=== PATIENT | male | born 1960 | race Caucasian/White ===

== ENCOUNTER 2024-10-14 12:21 | Inpatient (IN) | payer OTHER, SELFPAY ==
[2024-10-14] VITALS (11 sets, daily range): BP systolic 139–164; BP diastolic 71–123; PULSE 78–88; RESP 16–21; TEMP 36.1–36.9; O2SAT 95–99; BMI 34.1; BMI 34.9; BMI 33.8
--- NOTE | 2024-10-14 12:28 | ED.RN ---
This Rn notified Dr. Lainez of symptoms, placed chart 1st in line to be seen in DrAngely office
--- NOTE | 2024-10-14 12:46 | CT_ITS ---
PROCEDURE: STROKE BRAIN/HEAD WITHOUT CONT REASON FOR EXAM: Stroke. TECHNIQUE: CT of the head without contrast was performed. COMPARISON: None. FINDINGS: Mild global parenchymal atrophy. Mild chronic microvascular ischemia. No evidence of acute fracture or dislocation. No extra-axial blood or fluid collections. The paranasal sinuses are clear. The calvarial vault and skull base are intact. CT/STROKE Brain/Head without Cont IMPRESSION: No acute intracranial abnormality. One or more dose reduction techniques were used (e.g., Automated exposure contr ol, adjustment of the mA and/or kV according to patient size, use of iterative reconstruction technique). Reading Location: [id number]
--- NOTE | 2024-10-14 12:46 | EKG12_ITS ---
Test Reason : STROKE Blood Pressure : */* mmHG Vent. Rate : 77 BPM Atrial Rate : 77 BPM P-R Int : 228 ms QRS Dur : 104 ms QT Int : 408 ms P-R-T Axes : 20 -50 22 degrees QTcB Int : 461 ms Sinus rhythm with 1st degree A-V block Left anterior fascicular block Moderate voltage criteria for LVH, may be normal variant ( R in aVL , Ghassan product ) Abnormal ECG Confirmed by DAVID SANCHEZ, BEVERLEY ([id number]), assistant editor TAJ BONILLA ([id number]) on 10/15/2024 6:55:57 AM Referred By: Alexis Lainez Confirmed By: BEVERLEY HERNANDEZ MD
--- NOTE | 2024-10-14 12:49 | EDS_ITS ---
HPI History of Present Illness Chief Complaint: Neuro S/Sx Informant: patient and spouse/S.O. Narrative Narrative: Presents to the ED for evaluation right facial droop speech being off. He states he woke up 610 this morning felt normal even after brushing his teeth. 730 patient uses computer felt heavy on the right arm. He is right-hand dominant. He took a nap, woke up noted more facial drooping. Speech has been off. Is worsened therefore he came here. no stroke history. History of diabetes. IV contrast dye allergy causing hives. In addition reportedly had head injury 2 weeks ago. No headaches. Prior similar symptoms: No PFSH PFSH Home Medications ?Medication ?Instructions ?Recorded ?Last Taken ?Type aspirin 81 mg tablet,delayed 81 mg PO DAILY 10/14/24 0 10/13/24 History release atorvastatin 20 mg tablet 20 mg PO DAILY 10/14/2401/31 History fenofibrate nanocrystallized 145 145 mg PO DAILY 10/1410/13/24 History mg tablet losartan 100 mg tablet 100 mg PO DAILY 10/14/2401/01 History meloxicam 7.5 mg tablet 7.5 mg PO DAILY 10/14/2401/01 History metformin 1,000 mg tablet 1,000 mg PO BID 10/14/2401/31 History Allergy/AdvReac Type Severity Reaction Status Date / Time Iodinated Contrast Media Allergy Intermediate Hives Verified 10/14/24 12:25 (contrast dye - iodinated) Social History Smoking Status: Never smoker ROS ROS ED Constitutional Constitutional ED: Denies chills, fever(s) or sweats ENT ENT ED: Denies sore throat Cardiovascular Cardiovascular: Denies chest pain, leg edema, palpitations or racing heartbeat Respiratory/Chest Respiratory/Chest: Denies cough, dyspnea or dyspnea on exertion Gastrointestinal Gastrointestinal: Denies abdominal pain, diarrhea, nausea or vomiting Genitourinary Genitourinary ED: Denies dysuria, hematuria or urinary frequency Musculoskeletal Musculoskeletal: Denies back pain, extremity pain or neck pain Integumentary Denies rash or wounds Neurologic Neurologic: Reports paresthesias, weakness and other Details: Speech changes ; Denies headache(s) EXAM Physical Exam Const Vital Signs: 10/14/24 12:23 10/14/24 12:46 10/14/24 13:03 Temperature 97.5 F L Temperature Source Temporal Pulse Rate 88 83 Respiratory Rate 19 H 21 H Blood Pressure 160/80 H 164/86 H Blood Pressure Mean 106 112 Pulse Ox 97 96 Oxygen Delivery Method Room Air Room Air 10/14/24 13:11 10/14/24 13:30 10/14/24 14:00 Temperature Temperature Source Pulse Rate 84 82 83 Respiratory Rate 18 17 Blood Pressure 154/77 H 156/71 H 139/79 H Blood Pressure Mean 102 99 99 Pulse Ox 95 97 97 Oxygen Delivery Method Positive well nourished and well developed Constitutional Narrative: Right lip droop sparing the forehead General Appearance ED: well developed and NAD HEENT Reports moist mucous membranes normocephalic and atraumatic Eyes General Eye ED: Yes normal appearance of both eyes Neck full ROM Chest Wall Chest: Negative for tenderness Resp normal respiratory effort and normal air movement Effort and Inspection: symmetric chest movement; Negative for respiratory distress Cardio regular rate, regular rhythm and no murmurs Peripheral Pulses: pulses 2+ throughout GI normal to inspection, nondistended, normoactive bowel sounds and non-tender Palpation: Negative for guarding or rebound tenderness present Extremity normal to inspection General Extremety ED: Negative for edema or tenderness General Extremity: Negative for edema Neuro oriented x3 Neuro Narrative: NIH of 4 see below. Sensorium / Orientation: awake and alert Skin no rashes or lesions noted and no wounds NIHSS NIHSS Initial: 1a Level of Consciousness: 0 1b LOC Questions (Score 2 if aphasic/stupor): 0 1c LOC Commands (Only score 1st attempt): 0 2 Best Gaze (If aphasic, use reflexive mvmts.): 0 3 Visual: 0 4 Facial Palsy: 1 5 Motor Arm Right (UN = amputation/fusion): 1 5 Motor Arm Left: 0 6 Motor Leg Right: 0 6 Motor Leg Left: 0 7 Limb ataxia (Only + if out of proportion): 0 8 Sensory (Aphasia/stupor=0 or 1, coma=2): 1 9 Best Language: 0 10 Dysarthria (mute, coma=2, intubated=UN): 1 11 Extinction and Inattention (only scored if +): 0 Total Score: 4 MDM MDM MDM Narrative Medical decision making narrative: Interventions / MDM: Differential diagnosis: CVA, facial weakness, dysarthria, history of diabetes Diagnosis considered but do not suspect: Intracranial hemorrhage however CT negative. My EKG interpretation: Sinus rate of 77, no ST changes. Imaging independently reviewed and interpreted by myself: CT brain: Cerebral atr ophy no acute findings. External documents reviewed: N/A Test considered but not ordered:N/A ED course: Patient NIH of 4 on evaluation. Symptom onset more than 5 hours ago prior to arrival. He is not a TNK candidate. He does have an IV dye allergy causing hives. Stroke team was activated will obtain noncontrast CT. Will have teleneurology involvement to assist with care and further workup. 1300: Patient evaluated by telestroke. With his known IV dye allergy. They recommended admission for MRI and MRA. EKG sinus rhythm. Labs are stable. I discussed with hospitalist Dr. Ugarte for admission to PCU. Re-evaluation: stable Disposition discussed with patient/family/significant other: Patient and family Case discussed with consulting clinician: Telestroke This note was generated with [employer] dictation software. It may contain incorrect words, spelling, and punctuation that were not noted in checking the note before signing. Lab Data Attestation: I reviewed the patient's lab results. Labs: Laboratory Results - last 24 hr 10/14/24 10/14/24 12:59 13:06 WBC 8.7 RBC 4.79 Hgb 15.0 Hct 44.0 MCV 91.9 MCH 31.3 MCHC 34.1 RDW Std Deviation 40.9 RDW Coeff of Vu 12.2 Plt Count 293 MPV 10.2 Immature Gran % (Auto) 1.600 H Neut % (Auto) 61.9 Lymph % (Auto) 24.4 Pike % (Auto) 8.6 Eos % (Auto) 2.7 Baso % (Auto) 0.8 Absolute Neuts (auto) 5.4 Absolute Lymphs (auto) 2.13 Nucleated RBC % 0 PT 13.2 INR 1.0 APTT 23.9 L Sodium 138 Potassium 4.0 Chloride 103 Carbon Dioxide 27.0 Anion Gap 8 BUN 19 H Creatinine 0.82 Estim Creat Clear Calc 103.06 Est GFR (MDRD) Af Amer 121 Est GFR (MDRD) Non-Af 100 BUN/Creatinine Ratio 23.1 H Glucose 222 H Calcium 9.6 Troponin I High Sens 11 POC Glucose 220 H Radiography Diagnostic Testing: Clinical Impression(s) from Imaging Studies Brain CT 10/14/24 12:46 IMPRESSION: No acute intracranial abnormality. One or more dose reduction techniques were used (e.g., Automated exposure control, adjustment of the mA and/or kV according to patient size, use of iterative reconstruction technique). Reading Location: [id number] Chest X-Ray 10/14/24 13:30 IMPRESSION: No acute cardiopulmonary process. Reading [facility] Stroke Documentation Questions Stroke Team Activated: Yes Was Patient considered for Endovascular Intervention?: No-CTA not indicated (Unable secondary to IV dye allergy) IV Thrombolytic Administered: No (Outside the window) Discharge Plan Dx/Rx/DC Orders Clinical Impression: Acute CVA (cerebrovascular accident), Weakness on right side of face, Facial paresthesia, History of diabetes mellitus Disposition Disposition: Acute Care Hospital [facility] Discharge Date/Time: 10/14/24 14:48
[2024-10-14 13:12] LABS: Absolute Lymphocyte Count 2.13 X10^3/uL (0.83-4.51); Absolute Neutrophil Count 5.4 X10^3/uL (2.0-7.7); Basophil# 0.07 X10^3/uL; Basophil% 0.8 % (0-1); Eosinophil# 0.24 X10^3/uL; Eosinophils% 2.7 % (0-5); Lymphocyte # 2.13 X10^3/ul (0.83-4.51); Lymphocyte % 24.4 % (19-41); Mean Corp Hgb Conc 34.1 g/dL (32-36); Mean Corpuscular Hgb 31.3 pg (27.0-32.0); Mean Corpuscular Volume 91.9 fL (80-94); Mean Platelet Vol. 10.2 fl (6.2-12.0); Monocyte# 0.75 X10^3/uL; Monocyte% 8.6 % (0-10); NRBC Flagged by Analyzer 0 % (0-5); Neutrophil % 61.9 % (47-70); Platelet Count 293 K/mm3 (150-450); RBC Distribution Width CV 12.2 % (11.6-14.6); RBC Distribution Width SD 40.9 fl (35.1-43.9); Red Blood Count 4.79 M/mm3 (4.6-6.2); White Blood Count 8.7 K/mm3 (4.4-11.0)
[2024-10-14 13:21] LABS: Partial Thromboplast Time 23.9 Seconds (24.1-36.2)
[2024-10-14 13:24] LABS: Bedside Glucose 220 mg/dL (74-106)
[2024-10-14 13:26] LABS: Anion Gap 8 (5-15); BUN 19 mg/dL (7-18); BUN/Creat Ratio 23.1 RATIO (10-20); Calcium,Total 9.6 mg/dL (8.5-10.1); Chloride 103 mmol/L (98-107); Creatinine, Serum 0.82 mg/dL (0.70-1.30); EST Glomerular Filtration Rate 100 mL/min (>60); Est Glom Filt Rate - Afr Amer 121 mL/min (>60); Estimated Creatinine Clearance 103.06 ml/min; Glucose 222 mg/dL (74-106); Sodium Level 138 mmol/L (136-145); Troponin-I HS 11 pg/mL (3.0-78.0)
--- NOTE | 2024-10-14 13:30 | RAD_ITS ---
EXAM: XR Chest, 1 View CLINICAL INDICATION: TECHNIQUE: Frontal view of the chest. COMPARISON: No relevant prior studies available. FINDINGS: LUNGS AND PLEURAL SPACES: Unremarkable. No consolidation. No pneumothorax. HEART: Unremarkable. No cardiomegaly. MEDIASTINUM: Unremarkable. Normal mediastinal contour. BONES/JOINTS: Unremarkable. No acute fracture. RAD/Chest 1 View IMPRESSION: No acute cardiopulmonary process. Reading [facility]
--- NOTE | 2024-10-14 14:04 | CASEMGMT ---
SW received a call from Simran. Simran said she did order meals for patient last discharge and she will order them again at this discharge. Jaylene OGLESBY
--- NOTE | 2024-10-14 14:05 | HP.PCM.HOS_ITS ---
HPI - General General Date of Admission: 10/14/24 Date of Service: 10/14/24 Chief Complaint: speech changes R sided facial droop HPI Narrative LAWRENCE CRISTINA, is a 64-year-old male with history of diabetes on metformin, hyperlipidemia, high blood pressure who presented to [facility] ED 10/14/2024 with right facial droop and speech being off. He woke up at 610 this morning and felt normal but then 730 he felt heaviness in his right arm. Took a nap and woke up and had some right facial drooping and noticed his speech is abnormal so he came here. Reportedly had him treated 2 weeks ago, no headaches. In ED NIH was 4. Symptoms were more than 5 hours prior to arrival so he is not a TNK candidate, ED physician did speak with teleneurology who recommended MRI instead of CTA given dye allergy. CT with no acute process, hospitalist contacted for admission for stroke workup. Patient evaluated at bedside and reports he woke up around 6:00 and felt okay but then around 730 he was on his computer and he noticed that when he was moving the mouse with his right hand he was intermittently missing his target, then around 11:00 the right side of his face had noticeable droop and he had difficulty speaking, right arm also just felt off. Does report that 2 Sundays ago he slipped on ice and hit his head and maybe had loss of consciousness but no seizure activity and it was mechanical fall, was felt a little bit off since then but had not had any symptoms like this. Patient also denies any changes in his gait today or lower extremity symptoms, no changes in vision, no headache [facility] Medications ?Medication ?Instructions ?Recorded ?Last Taken ?Type aspirin 81 mg tablet,delayed 81 mg PO DAILY 10/14/24 0 10/13/24 History release atorvastatin 20 mg tablet 20 mg PO DAILY 10/14/2401/31 History fenofibrate nanocrystallized 145 145 mg PO DAILY 10/1410/13/24 History mg tablet losartan 100 mg tablet 100 mg PO DAILY 10/14/2401/01 History meloxicam 7.5 mg tablet 7.5 mg PO DAILY 10/14/2401/01 History metformin 1,000 mg tablet 1,000 mg PO BID 10/14/2401/31 History Allergy/AdvReac Type Severity Reaction Status Date / Time Iodinated Contrast Media Allergy Intermediate Hives Verified 10/14/24 12:25 (contrast dye - iodinated) Social History Smoking Status: Never smoker ROS ROS Narrative General: Denies fever/chills HENT: Denies headache EYES: Denies changes in vision Resp: No significant shortness of breath Cardiac: Denies chest pain GI: Denies abdominal pain, denies changes in bowel, denies nausea/vomiting : Denies changes in urination Extremity: Denies swelling MSK: Denies weakness Neuro: Denies any paresthesias Heme: Denies any bleeding or bruising Skin: Denies rashes Psychiatric: No complaints voiced Vital Signs Vital Signs Vital Signs: 10/14/24 12:23 10/14/24 12:46 10/14/24 13:03 Temperature 97.5 F L Temperature Source Temporal Pulse Rate 88 83 Respiratory Rate 19 H 21 H Blood Pressure 160/80 H 164/86 H Blood Pressure Mean 106 112 Pulse Ox 97 96 Oxygen Delivery Method Room Air Room Air 10/14/24 13:11 10/14/24 13:30 10/14/24 14:00 Temperature Temperature Source Pulse Rate 84 82 83 Respiratory Rate 18 17 Blood Pressure 154/77 H 156/71 H 139/79 H Blood Pressure Mean 102 99 99 Pulse Ox 95 97 97 Oxygen Delivery Method Weight Weight: 101 kg Body Mass Index (BMI) 34.9 Physical Exam Narrative General: Alert, oriented, no apparent distress HEENT: Atraumatic, does have right lower facial droop Eyes: Anicteric, normal conjunctiva, extraocular movements intact, pupils equal Neck: Supple Respiratory: Clear to auscultation bilaterally, normal respiratory effort Cardiovascular: Regular rate and rhythm GI: Soft, nontender, nondistended Extremities: No edema Musculoskeletal: Strength 5 out of 5 in right upper extremity, 5 out of 5 left upper extremity, 5 out of 5 right lower extremity, 5 out of 5 left lower extremity Neuro: Patient with slight right lower facial droop also some word finding difficulties and was able to complete [id number] with left hand without difficulty but did have some difficulty with his right hand, otherwise cranial nerves II through XII intact Skin: No rashes appreciated Psych: Cooperative Results Lab / Micro Data 10/14/24 12:59 10/14/24 12:59 Labs: Laboratory Results - last 24 hr 10/14/24 12:59: WBC 8.7, RBC 4.79, Hgb 15.0, Hct 44.0, MCV 91.9, MCH 31.3, MCHC 34.1, RDW Std Deviation 40.9, RDW Coeff of Vu 12.2, Plt Count 293, MPV 10.2, I mmature Gran % (Auto) 1.600 H, Neut % (Auto) 61.9, Lymph % (Auto) 24.4, Vance % (Auto) 8.6, Eos % (Auto) 2.7, Baso % (Auto) 0.8, Absolute Neuts (auto) 5.4, Absolute Lymphs (auto) 2.13, Nucleated RBC % 0, Sodium 138, Potassium 4.0, Chloride 103, Carbon Dioxide 27.0, Anion Gap 8, BUN 19 H, Creatinine 0.82, Estim Creat Clear Calc 103.06, Est GFR (MDRD) Af Amer 121, Est GFR (MDRD) Non-Af 100, BUN/Creatinine Ratio 23.1 H, Glucose 222 H, Calcium 9.6, Troponin I High Sens 11 10/14/24 13:06: POC Glucose 220 H Imaging Radiology Impression Brain CT 10/14/24 12:46 IMPRESSION: No acute intracranial abnormality. One or more dose reduction techniques were used (e.g., Automated exposure control, adjustment of the mA and/or kV according to patient size, use of iterative reconstruction technique). Reading Location: [id number] Assessment & Plan Assessment/Plan (1) Neurologic abnormality: PLAN: Plan # Right arm dysmetria, abnormal speech, right facial droop -Admit to tele -EKG normal sinus rhythm with first-degree block -CT head with no acute process -CTA not obtained in the ED due to dye allergy, teleneurology recommended MRA -MRI and MRA ordered -NIH q4hr -asa, statin -Echo w/ bubble study -PT/OT/Speech eval -Teleneuro consult ordered -Hold BP medications to allow for permissive hypertension for 24 hours unless SBP greater than 220 or DBP greater than 120 or until stroke is ruled out #Type 2 diabetes mellitus -Glucose checks and sliding scale insulin -Hold home metformin #Hypertension -Patient unsure what his home antihypertensive is at this time, however will hold his above to allow permissive hypertension # Hyperlipidemia -Patient reports he is on home statin, awaiting medicine reconciliation #DVT ppx: SCDs Mali Ugarte MD
[2024-10-14 14:16] LABS: Prothrombin Time (Protime)PT. 13.2 SECONDS (11.7-14.9)
--- NOTE | 2024-10-14 14:19 | MRI_ITS ---
PROCEDURE: BRAIN WITHOUT CONTRAST REASON FOR EXAM: Speech changes; right facial droop. TECHNIQUE: Multiplanar, multisequence MRI of the brain without intravenous gadolinium-based contrast. COMPARISON: Same day CT FINDINGS: Tiny left thalamic and left centrum semiovale foci of restricted diffusion compatible with acute infarctions. No evidence of acute hemorrhage. Mild global parenchymal atrophy. Mild chronic microvascular ischemia. MRI/Brain without Contrast IMPRESSION: Left thalamic and left centrum semiovale small acute infarctions. Dr. Syed was instructed to call for critical results. Reading Location: [id number]
--- NOTE | 2024-10-14 14:19 | ECHOCS_ITS ---
Version 2 Reason For Study: TIA/CVA Procedure This was a 2D Doppler, Color Flow transthoracic echocardiogram. The study was technically difficult. Contrast injection was performed. Exam performed portable in patient room. Left Ventricle Normal LV size. Left ventricular systolic function is normal. The left ventricular ejection fraction is 65 %. Stage 1 diastolic dysfunction. No regional wall motion abnormalities noted. Right Ventricle Normal right ventricle. Normal systolic function. Atria Normal left atrium. Normal right atrium. Bubble contrast study is negative for PFO/ASD. Tricuspid Valve Normal tricuspid valve. Aortic Valve Trisinus/trileaflet aortic valve. Pulmonic Valve Normal pulmonic valve. Great Vessels Normal aortic root. The pulmonary artery is normal size. Inferior vena cava collapse with respiration. Pericardium/Pleural No pericardial effusion. Medication Diluted definity 1.5ml given slow IV push to enhance endocardial definition. Performed a rapid injection of agitated mix of 9 cc saline and 1cc air to assess for atrial septal defect. MMode/2D Measurements & Calculations LVIDd: 4.6 cm IVSd: 1.1 cm Ao root diam: 3.6 cm LVIDs: 3.2 cm LVPWd: 0.96 cm RVDd: 3.5 cm FS: 30.1 % _ LAV(MOD-bp): 43.9 ml LVAd ap4: 32.0 cm2 SV(MOD-sp4): 61.1 ml LAV(MOD-bp) Indexed: 20.8 ml/m2 LVLd ap4: 8.8 cm SI(MOD-sp4): 28.9 ml/m2 LAV(MOD-sp2): 43.3 ml EDV(MOD-sp4): 98.5 ml LAV(MOD-sp4): 40.8 ml EDV(sp4-el): 98.8 ml LVAs ap4: 18.7 cm2 LVLs ap4: 8.0 cm ESV(MOD-sp4): 37.4 ml ESV(sp4-el): 37.4 ml EF(MOD-sp4): 62.0 % EF(sp4-el): 62.2 % _ SV(sp4-el): 61.5 ml LA A4 area: 15.4 cm2 LA dimension(2D): 3.8 cm _ RA A4 area: 17.9 cm2 TAPSE: 2.3 cm Time Measurements MV dec time: 0.13 sec Doppler Measurements & Calculations MV E max gumaro: 57.1 cm/sec Lat Peak E' Gumaro: 11.9 cm/sec Med Peak E' Gumaro: 10.8 cm/sec MV A max gumaro: 93.0 cm/sec E/E' lat: 4.8 E/E' med: 5.3 MV E/A: 0.61 _ MV V2 max: 104.1 cm/sec Ao V2 max: 140.4 cm/sec MV max P.3 mmHg MV dec slope: 452.0 cm/sec2 Ao max P.9 mmHg MV V2 mean: 60.9 cm/sec Ao V2 mean: 89.7 cm/sec MV mean P.8 mmHg Ao mean P.9 mmHg MV V2 VTI: 17.3 cm Ao V2 VTI: 22.0 cm AV (velocity ratio): 0.75 _ LV V1 max: 90.5 cm/sec LV V1 max P.3 mmHg LV V1 mean P.7 mmHg LV V1 mean: 59.1 cm/sec LV V1 VTI: 16.4 cm ECHO/Echo Complete W/ Contrast Interpretation Summary Normal LV size. Left ventricular systolic function is normal. The left ventricular ejection fraction is 65 %. Bubble contrast study is negative for PFO/ASD. Stage 1 diastolic dysfunction. Contrast injection was performed. Ordering Physician: Mali Ugarte Referring Physician: Alexis Lainez Performed By: Thomas Puente RCS
--- NOTE | 2024-10-14 14:19 | MRI_ITS ---
PROCEDURE: MRA NECK WITH AND W/O CONTRAST REASON FOR EXAM: Stroke-like symptoms. TECHNIQUE: Neck MRA using 2D and 3D Time of Flight technique and with intravenous gadolinium-based contrast. CONTRAST: COMPARISON: None. FINDINGS: Flow: 2D Time of Flight images demonstrate antegrade carotid and vertebral artery flow. Carotids: Tortuous internal carotid arteries. Decreased signal within the proximal right internal carotid only seen on the axial images and therefore likely artifact. Decreased signal within the proximal internal carotid arteries suggestive of less than 50% stenosis Vertebrals: Codominant without evidence of high grade stenosis. Arch: No significant stenosis identified at the arch vessel origins, brachiocephalic or proximal subclavian arteries. MRI/MRA Neck WITH and W/O Contrast IMPRESSION: Decreased signal within the proximal right internal carotid artery favored to b e artifact. CTA could be used to confirm. No definite acute arterial abnormality within the neck. Tortuous internal carotid arteries. Reading Location: [id number]
--- NOTE | 2024-10-14 14:54 | MRI_ITS ---
PROCEDURE: MRA HEAD ONLY WITHOUT CONTRAST REASON FOR EXAM: Stroke-like symptoms. COMPARISON: None. TECHNIQUE: 3D Time of Flight MRA of the head without intravenous contrast. 3D reformatted images. FINDINGS: Anatomy: [place] of [place] anatomy is within normal limits. Anterior Circulation: Distal internal carotid anterior and middle cerebral arteries appear patent without high grade stenosis. No large aneurysms are identified. Posterior Circulation: Distal vertebral arteries the basilar artery and the posterior cerebral arteries appear patent without high grade stenosis. No large aneurysms are identified. MRI/MRA Head ONLY without Contrast IMPRESSION: No acute arterial abnormality. Reading Location: [id number]
--- NOTE | 2024-10-14 15:29 | CM.ED ---
Social Work Reason for visit: Stroke alert Patient was in bed with and daughter at bedside. stated she was fine at this time. Emotional support provided. No further needs identified at this time. Jane Roberts, [place] MARKETING DIRECTOR, HEALTH PROGRAM MANAGER
[2024-10-14] MEDS: Aspirin 325 MG Tablet PO (18:37)
[2024-10-14] MEDS: Insulin Lispro 100 UNIT/ML INSULN.PEN SC ×2 (18:38→21:27)
[2024-10-14 18:43] LABS: Bedside Glucose 189 mg/dL (74-106)
--- NOTE | 2024-10-14 22:00 | NURSING ---
Dr Syed notified of NIH results and to call radiology re mri reports
--- NOTE | 2024-10-14 22:00 | NURSING ---
Assessed NIH with nicci at 2150. scored pt at a 4. Nicci had wanted a second assessment d/t unsure about previous score. Pt states speech is worse. Has mild drift to rt arm. Informed Dr blevins of inconsistency with nih's, score of 6 and now 4 and that radiology wishes for her to call re mri report.
[2024-10-14] MEDS: Ondansetron 4 MG/2 ML Vial IV (22:03)
[2024-10-14] MEDS: 0.9% Saline Lock 10 ML Syringe IV (22:03)
--- NOTE | 2024-10-14 22:44 | PCM.HOSP.N ---
Hospitalist Note Discussed image findings with radiology. MRI of the brain with left thalamic and left centrum semiovale small acute infarctions. MRA of the head with no acute arterial abnormality. MRA of the neck with decreased signal within the proximal right internal carotid artery favored to be artifact with no definitive acute arterial abnormality within the neck with tortuous internal carotid arteries.
[2024-10-14 23:15] LABS: Bedside Glucose 206 mg/dL (74-106)
[2024-10-15] VITALS (8 sets, daily range): BP systolic 132–156; BP diastolic 82–89; PULSE 81–94; RESP 16–18; TEMP 35.8–36.9; O2SAT 95–100; BMI 33.8
[2024-10-15] MEDS: MELATONIN 3 MG TABLET PO ×2 (01:25→22:57)
[2024-10-15] MEDS: Insulin Lispro 100 UNIT/ML INSULN.PEN SC ×4 (07:01→22:54)
[2024-10-15 07:20] LABS: Bedside Glucose 294 mg/dL (74-106)
[2024-10-15 07:45] LABS: Absolute Lymphocyte Count 2.57 X10^3/uL (0.83-4.51); Absolute Neutrophil Count 7.6 X10^3/uL (2.0-7.7); Basophil# 0.04 X10^3/uL; Basophil% 0.4 % (0-1); Eosinophil# 0.14 X10^3/uL; Eosinophils% 1.2 % (0-5); Hematocrit 46.1 % (40-54); Hemoglobin 15.8 g/dL (13.0-16.5); Lymphocyte # 2.57 X10^3/ul (0.83-4.51); Lymphocyte % 22.9 % (19-41); Mean Corp Hgb Conc 34.3 g/dL (32-36); Mean Corpuscular Hgb 30.9 pg (27.0-32.0); Mean Corpuscular Volume 90.2 fL (80-94); Mean Platelet Vol. 10.2 fl (6.2-12.0); Monocyte# 0.72 X10^3/uL; Monocyte% 6.4 % (0-10); NRBC Flagged by Analyzer 0 % (0-5); Neutrophil # 7.62 X10^3/uL (2.7-7.7); Neutrophil % 67.9 % (47-70); Platelet Count 355 K/mm3 (150-450); RBC Distribution Width CV 12.1 % (11.6-14.6); RBC Distribution Width SD 39.7 fl (35.1-43.9); Red Blood Count 5.11 M/mm3 (4.6-6.2); White Blood Count 11.2 K/mm3 (4.4-11.0)
[2024-10-15 08:16] LABS: Anion Gap 10 (5-15); BUN 15 mg/dL (7-18); BUN/Creat Ratio 17.5 RATIO (10-20); Calcium,Total 9.5 mg/dL (8.5-10.1); Chloride 102 mmol/L (98-107); Cholesterol 152 mg/dL (200); Creatinine, Serum 0.86 mg/dL (0.70-1.30); EST Glomerular Filtration Rate 95 mL/min (>60); Est Glom Filt Rate - Afr Amer 115 mL/min (>60); Estimated Creatinine Clearance 96.78 ml/min; Glucose 274 mg/dL (74-106); High Density Lipoprotein 36 mg/dL; Potassium 3.9 mmol/L (3.5-5.1); Sodium Level 135 mmol/L (136-145); Triglycerides 451 mg/dL
--- NOTE | 2024-10-15 08:19 | CT_ITS ---
EXAM: CT Head Without Intravenous Contrast CLINICAL INDICATION: TECHNIQUE: Axial computed tomography images of the head/brain without intravenous contrast. This CT exam was performed using one or more of the following dose reduction techniques: automated exposure control, adjustment of the mA and/or kV according to patient size, and/or use of iterative reconstruction technique. COMPARISON: No relevant prior studies available. FINDINGS: BRAIN AND EXTRA-AXIAL SPACES: No acute intracranial hemorrhage, midline shift or mass effect. If symptoms persist, further evaluation with MRI is recommended. No significant white matter disease. BONES/JOINTS: Unremarkable. No acute fracture. SOFT TISSUES: Unremarkable. SINUSES: Unremarkable as visualized. No acute sinusitis. MASTOID AIR CELLS: Unremarkable as visualized. No mastoid effusion. CT/STROKE Brain/Head without Cont IMPRESSION: No acute intracranial hemorrhage, midline shift or mass effect. If symptoms per sist, further evaluation with MRI is recommended. Reading Location[facility]
--- NOTE | 2024-10-15 08:45 | PCM.HOSP.N ---
Hospitalist Note Notified by nursing staff that patient's NIH score had worsened from 4 to 8 and he was reporting worsening right upper extremity weakness. Saw patient at bedside. Patient does have significantly weak right arm. Minimal movement noted in the right hand when I asked him to squeeze my hand, and minimal movement at the shoulder noted with shrugging his shoulders. He reported having some sensation in the right arm but it was diminished from the left. Has continued right facial droop noted. No right leg weakness. Given these findings, stroke alert was called. CT head was stable from previous, no new findings. Discussed with teleneurology and he believes patient is completing his stroke that started yesterday. Okay to start patient on dual antiplatelet therapy; will start Plavix 75 mg daily this morning. No need to load with Plavix 300 mg. Stroke is most likely due to microvascular ischemia but we will follow-up echo that patient will have done today. PT/OT/speech therapy to see the patient today.
[2024-10-15] MEDS: Clopidogrel Bisulfate 75 MG Tablet PO (09:54)
[2024-10-15] MEDS: Fenofibrate 145 MG Tablet PO (09:54)
[2024-10-15] MEDS: Aspirin 81 MG TAB.CHEW PO (09:54)
[2024-10-15 10:16] LABS: Bedside Glucose 299 mg/dL (74-106)
--- NOTE | 2024-10-15 11:33 | CASEMGMT ---
Social Work SW completed PHQ-9 d/t dx of stroke. Pt scored 7/27 all related to post stroke symptoms. However, pt is motivated, optimistic and forward thinking. Pt denied any counseling resources at this time. SW educated and provided brochure on [facility]. SW reviewed/updated demographics. Pt reports he has two houses - one in [place], one in [place]. Pt plans to sell house in [place] in December. 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 Pt expressed uncertainty to what his insurance coverages regarding RU, but is interested in rehab for stroke. SW will collaborate with IDT to provide recommendations for DC needs. SW will remain available for discharge planning needs. Amisha Heath CURTAIN [employer]ER VENDING MACHINE COLLECTOR
--- NOTE | 2024-10-15 12:41 | PN.HOSP_ITS ---
Reason for Visit Reason for Visit: Diagnoses Other symptoms and signs involving the nervous system (10/15/24) Subjective Subjective Patient had worsening right upper extremity weakness this morning leading to a stroke alert being called. See quick note from this morning for further details. In short, CT head was negative and neurology believed patient was completing a stroke from yesterday. Saw patient at bedside later this morning. Patient appeared similar to earlier in the morning. Good cognitive function but does have some speech difficulty from the stroke. No new concerns at this time. Objective Data Objective Data Vital Signs: Vital Signs Temp Pulse Resp BP Pulse Ox O2 Del Method 97.5 F L 92 18 148/83 H 98 Room Air 10/15/24 10:00 10/15/24 10:00 10/15/24 10:00 10/15/24 10:00 10/15/24 10:00 10/15/24 10:00 Oxygen Delivery Method Room Air Weight: 97.976 kg Body Mass Index (BMI) 33.8 Intake & Output: Intake and Output for Last 24 Hours 10/13/24 10/14/24 10/15/24 23:59 23:59 23:59 Intake Total 500 / 500 Balance 500 / 500 Lab / Micro Data 10/15/24 07:01 10/15/24 07:01 Labs: Laboratory Results - last 24 hr 10/14/24 12:59: WBC 8.7, RBC 4.79, Hgb 15.0, Hct 44.0, MCV 91.9, MCH 31.3, MCHC 34.1, RDW Std Deviation 40.9, RDW Coeff of Vu 12.2, Plt Count 293, MPV 10.2, I mmature Gran % (Auto) 1.600 H, Neut % (Auto) 61.9, Lymph % (Auto) 24.4, Jefferson % (Auto) 8.6, Eos % (Auto) 2.7, Baso % (Auto) 0.8, Absolute Neuts (auto) 5.4, Absolute Lymphs (auto) 2.13, Nucleated RBC % 0, PT 13.2, INR 1.0, APTT 23.9 L, Sodium 138, Potassium 4.0, Chloride 103, Carbon Dioxide 27.0, Anion Gap 8, BUN 19 H, Creatinine 0.82, Estim Creat Clear Calc 103.06, Est GFR (MDRD) Af Amer 121, Est GFR (MDRD) Non-Af 100, BUN/Creatinine Ratio 23.1 H, Glucose 222 H, Calcium 9.6, Troponin I High Sens 11 10/14/24 13:06: POC Glucose 220 H 10/14/24 17:39: POC Glucose 189 H 10/14/24 21:25: POC Glucose 206 H 10/15/24 07:00: POC Glucose 294 H 10/15/24 07:01: WBC 11.2 H, RBC 5.11, Hgb 15.8, Hct 46.1, MCV 90.2, MCH 30.9, MCHC 34.3, RDW Std Deviation 39.7, RDW Coeff of Vu 12.1, Plt Count 355, MPV 10.2, Immature Gran % (Auto) 1.200 H, Neut % (Auto) 67.9, Lymph % (Auto) 22.9, Jefferson % (Auto) 6.4, Eos % (Auto) 1.2, Baso % (Auto) 0.4, Absolute Neuts (auto) 7.6, Absolute Lymphs (auto) 2.57, Nucleated RBC % 0, Sodium 135 L, Potassium 3.9, Chloride 102, Carbon Dioxide 23.0, Anion Gap 10, BUN 15, Creatinine 0.86, Estim Creat Clear Calc 96.78, Est GFR (MDRD) Af Amer 115, Est GFR (MDRD) Non-Af 95, BUN/Creatinine Ratio 17.5, Glucose 274 H, Calcium 9.5, Triglycerides 451 H, Cholesterol 152, LDL Cholesterol TNP, VLDL Cholesterol TNP, HDL Cholesterol 36 L 10/15/24 08:15: POC Glucose 299 H Radiography Diagnostic Testing: Radiology Impression Brain CT 10/14/24 12:46 IMPRESSION: No acute intracranial abnormality. One or more dose reduction techniques were used (e.g., Automated exposure control, adjustment of the mA and/or kV according to patient size, use of iterative reconstruction technique). Reading Location: [id number] Chest X-Ray 10/14/24 13:30 IMPRESSION: No acute cardiopulmonary process. Reading [facility] Brain MRI 10/14/24 14:19 IMPRESSION: Left thalamic and left centrum semiovale small acute infarctions. Dr. Syed was instructed to call for critical results. Reading Location: [facility] Echocardiogram 10/14/24 14:19 Interpretation Summary Normal LV size. Left ventricular systolic function is normal. The left ventricular ejection fraction is 65 %. Bubble contrast study is negative for PFO/ASD. Stage 1 diastolic dysfunction. Contrast injection was performed. Ordering Physician: Mali Ugarte Referring Physician: Alexis Lainez Performed By: Thomas Puente RCS Neck MRA 10/14/24 14:19 IMPRESSION: Decreased signal within the proximal right internal carotid artery favored to be artifact. CTA could be used to confirm. No definite acute arterial abnormality within the neck. Tortuous internal carotid arteries. Reading Location: [facility] Head MRA 10/14/24 14:54 IMPRESSION: No acute arterial abnormality. Reading Location: [facility] Brain CT 10/15/24 08:19 IMPRESSION: No acute intracranial hemorrhage, midline shift or mass effect. If symptoms persist, further evaluation with MRI is recommended. Reading Location: [facility] Physical Exam Const alert, oriented x3 and no apparent distress Constitutional Narrative: Upper middle-aged male, class I obesity, mildly anxious appearing but otherwise sitting up comfortably in bed, answering questions appropriately but does have some speech difficulties noted. General Appearance: cooperative and comfortable HEENT normocephalic, head/scalp atraumatic, hearing grossly normal bilaterally, nasal mucous membranes and turbinates normal and moist oral mucous membranes HEENT Narrative: Right mild facial droop noted. Eyes PERRL, EOMs intact bilaterally and conjunctivae normal Neck full ROM Chest inspection of chest normal Resp normal respiratory effort, normal air movement, no use of accessory muscles and clear to auscultation bilaterally Cardio regular rate, regular rhythm, no murmurs and peripheral pulses 2+ throughout GI normal to inspection, nondistended, normoactive bowel sounds, soft to palpation, non-tender and non-distended Back/Spine normal ROM Extremity normal to inspection and no pedal edema Skin no rashes or lesions noted Neuro Neuro Narrative: +1/5 strength in right upper extremity with intact but decreased sensation noted. Mild right facial droop noted but sensation intact. No right lower extremity weakness noted. Speech difficulty noted. Psych mental status grossly normal Mood & Affect: anxious Assessment & Plan Assessment/Plan (1) Acute CVA (cerebrovascular accident): PLAN: Plan Patient is a 64-year-old male who presented [facility] ED on 10/14/2024 with strokelike symptoms. 1. Acute CVA ? Neurology following. Presented with right arm dysmetria, right facial droop and abnormal speech. MRI brain showed left thalamic and left centrum semiovale small acute infarctions. Per neurology, patient's symptoms are consistent with infarcts in these areas. Had slight worsening on morning 10/15, repeat CT head unremarkable and neurology suspected patient was completing stroke. Lipid profile showed total cholesterol 152, HDL 36, triglycerides 151, LDL not calculated. A1c 5.8%. Echo showed EF 65%, no PFO/ASD. Per neurology, treat with aspirin and Plavix for 21 days then aspirin only and intensity statin. PT/OT/case management consulted. Planning for acute rehab on discharge. Will likely be medically for discharge tomorrow. 2. Type 2 diabetes mellitus ? A1c 5.8% on admit as noted above. However, blood sugars have been consistently in the 200s since admission. Will continue sliding scale insulin with meals with high medium sliding scale, adjust as needed. 3. Hypertension ? Holding home losartan for permissive hypertension, will plan to restart on discharge. 4. Hyperlipidemia ? Continue high intensity statin as noted above. Continue home fenofibrate as well. 5. Class I obesity ? BMI 33 on admit. Encouraged lifestyle modifications. DVT prophylaxis: SCDs CODE STATUS: Full code, verified Expected disposition: Likely acute rehab, 1 to 2 days Total clinical time spent by myself addressing the patient's medical issues, reviewing all the data, and collaborating with patient's care team: 50 minutes. Charges/Coding Visit Charges Inpatient E&M: 81291 Subs Hosp L3
--- NOTE | 2024-10-15 14:46 | CASEMGMT ---
Social Work SW met with pt, pt's sister Anabelle and niece Cleo and discussed discharge plan. Pt was independent and still working prior to stroke. Pt is very motivated to recover and is requesting rehabilitation. SW explained Inpatient Rehab and SNF level of care. Pt agreeable to acute RU. A list of IRU providers including quality and resource use data and consistent with the patient?s preferred geographic region, medical needs, and insurance network were provided from the [employer] Guide. Pt preferred provider is [facility]. Referral made to Lory in [facility]. SW will await determination of acceptance. MARGARITA Moreno
[2024-10-15 16:42] LABS: Hemoglobin A1c 5.8 % (3.8-5.6)
[2024-10-15 17:23] LABS: Bedside Glucose 343 mg/dL (74-106)
[2024-10-15 17:24] LABS: Bedside Glucose 194 mg/dL (74-106)
--- NOTE | 2024-10-15 18:00 | NEURO.CONS ---
Assessment and Plan: Neuro Assessment/Plan LAWRENCE CRISTINA is a 64 M with a past medical history of DM and HLD presented with right side weakness and dysarthra, MRI showed acute left thalamic and Semiovale stroke etiology likely due small vessel disease Plan: cont with DAPT ( ASA and Plavix for 21 days then cont with ASA onley) high intesity statin TTE vascular risk modification PT/OT HPI Consult Data Date of Consult: 10/15/24 HPI Narrative HPI Narrative: LAWRENCE CRISTINA, is a 64-year-old male with history of diabetes , hyperlipidemia, high blood pressure who presented to with right facial droop and slurred speech. his symptoms worsen this morning, repeat CT head showed no acute changes, on vitals review there is no major swing in his blood pressure related to the exam change. [facility] Home Medications ?Medication ?Instructions ?Recorded ?Last Taken ?Type aspirin 81 mg tablet,delayed 81 mg PO DAILY 10/14/24 10/13/24 History release atorvastatin 20 mg tablet 20 mg PO DAILY 10/14/24 10/14/24 History fenofibrate nanocrystallized 145 145 mg PO DAILY 10/14/24 10/13/24 History mg tablet losartan 100 mg tablet 100 mg PO DAILY 10/14/24 10/13/24 History meloxicam 7.5 mg tablet 7.5 mg PO DAILY 10/14/24 10/13/24 History metformin 1,000 mg tablet 1,000 mg PO BID 10/14/24 10/14/24 History turmeric 400 mg capsule 1,650 mg PO 10/14/24 Unknown History Allergy/AdvReac Type Severity Reaction Status Date / Time Iodinated Contrast Media Allergy Intermediate Hives Verified 10/14/24 12:25 (contrast dye - iodinated) Social History Smoking Status: Never smoker Vital Signs Vital Signs Vital Signs: 10/14/24 21:15 10/14/24 21:50 10/14/24 22:00 Temperature 96.9 F L 98.4 F Temperature Source Temporal Oral Pulse Rate 79 78 Pulse Strength Normal (2+) Respiratory Rate 16 16 Respiratory Effort Respiratory Depth Respiratory Pattern Blood Pressure 158/85 H 154/123 H Blood Pressure Mean 109 133 Blood Pressure Source Monitor Monitor Blood Pressure Position Semi-Fowlers Supine Blood Pressure Location Right Arm Right Arm Pulse Ox 97 97 Oxygen Delivery Method Room Air Room Air 10/14/24 22:00 10/15/24 00:15 10/15/24 00:15 Temperature 96.9 F L Temperature Source Temporal Pulse Rate 81 Pulse Strength Respiratory Rate 16 Respiratory Effort Normal Non-Labored Respiratory Depth Normal Respiratory Pattern Normal Blood Pressure 156/82 H Blood Pressure Mean 106 Blood Pressure Source Monitor Blood Pressure Position Sitting Blood Pressure Location Right Arm Pulse Ox 96 98 Oxygen Delivery Method Room Air Room Air Room Air 10/15/24 04:15 10/15/24 07:30 10/15/24 08:15 Temperature 96.5 F L 97.5 F L Temperature Source Temporal Oral Pulse Rate 84 92 Pulse Strength Respiratory Rate 18 18 Respiratory Effort Respiratory Depth Respiratory Pattern Blood Pressure 147/86 H 148/83 H Blood Pressure Mean 106 104 Blood Pressure Source Monitor Blood Pressure Position Semi-Fowlers Blood Pressure Location Right Arm Pulse Ox 95 97 98 Oxygen Delivery Method Room Air Room Air Room Air 10/15/24 10:00 10/15/24 10:00 10/15/24 12:15 Temperature 97.5 F L 97.8 F Temperature Source Oral Oral Pulse Rate 92 94 Pulse Strength Normal (2+) Respiratory Rate 18 16 Respiratory Effort Respiratory Depth Respiratory Pattern Blood Pressure 148/83 H 132/87 H Blood Pressure Mean 104 102 Blood Pressure Source Monitor Monitor Blood Pressure Position Sitting Sitting Blood Pressure Location Left Arm Left Arm Pulse Ox 98 100 Oxygen Delivery Method Room Air Room Air 10/15/24 16:15 Temperature 98.4 F Temperature Source Oral Pulse Rate 83 Pulse Strength Respiratory Rate 16 Respiratory Effort Respiratory Depth Respiratory Pattern Blood Pressure 152/84 H Blood Pressure Mean 106 Blood Pressure Source Monitor Blood Pressure Position Sitting Blood Pressure Location Left Arm Pulse Ox 100 Oxygen Delivery Method Room Air Weight Weight: 97.976 kg Body Mass Index (BMI) 33.8 EEG Results Procedure Details EEG Procedure Details: LAWRENCE CRISTINA is a 64 year old M with a past medical history of , who presents for evaluation of Electroencephalogram on DATE at TIME NIHSS NIHSS Nursing Documentation NIHSS Nursing Documentation: NIHSS: Ischemic Stroke/TIA Start: 10/14/24 15:18 Text: For PCU Patients: NIH and Neuro Check every 4 Status: Active hours, PRN and with change in RN caregiver. Freq: 1613 Protocol: Activity Type Activity Date Activity User E-sign Co-sign Detail Recorded Client Recorded Date Recorded By Document 10/15/24 16:15 [id number] 10/15/24 17:10 NB 10/15/24 16:15 NIH Stroke Scale [NIHSS] A score of 0 is normal or asymptomatic . Total possible score is 42. Inpatient: RN or Physician to activate a stroke alert for onset of new stroke symptoms or with NIHSS increase >/= 3 points. Following change in neurological status, NIHSS will be performed per physician order or more frequently PRN. -1a. Level of Consciousness Alert; keenly responsive -1b. LOC Questions Answers BOTH questions correctly. -1c. LOC Commands Performs both tasks correctly . -2. Best Gaze Normal -3. Visual No visual loss -4. Facial Palsy Minor paralysis (flattened nasolabial fold , asymmetry on smiling) -5a. Left Arm No drift; arm holds 90 (or 45 ) degrees for full 10 seconds -5b. Right Arm No movement -6a. Left Leg No drift; leg holds 30-degree position for full 5 seconds -6b. Right Leg Some effort against gravity ; -7. Limb Ataxia Present in 2 limbs -8. Sensory Mild-to- moderate sensory loss; -9. Best Language Mild-to- moderate aphasia; -10. Dysarthria Mild-to- moderate dysarthria; -11. Extinction and Inattention No abnormality -Total 12 Query Text:A score of 0 is normal or asymptomatic. Total possible score is 42 . ED: Notify Physician for NIHSS increase by > / = 3 points. Inpatient: RN or Physician to activate a stroke alert for NIHSS increase of > / = 3 points. Coma Scale [Assess] -Eye Opening Spontaneous -Motor Obeys Commands -Verbal Oriented [Total] -Coma Scale Total 15 Physical Exam Neuro Neuro Narrative: awake alert oriented x3 language intact dense right facial droop right arm plegic right leg drift decreas sensation in the right Lab / Micro Data 10/15/24 07:01 10/15/24 07:01 Labs: Laboratory Results - last 24 hr 10/14/24 17:39: POC Glucose 189 H 10/14/24 21:25: POC Glucose 206 H 10/15/24 07:00: POC Glucose 294 H 10/15/24 07:01: WBC 11.2 H, RBC 5.11, Hgb 15.8, Hct 46.1, MCV 90.2, MCH 30.9, MCHC 34.3, RDW Std Deviation 39.7, RDW Coeff of Vu 12.1, Plt Count 355, MPV 10.2, Immature Gran % (Auto) 1.200 H, Neut % (Auto) 67.9, Lymph % (Auto) 22.9, [place] % (Auto) 6.4, Eos % (Auto) 1.2, Baso % (Auto) 0.4, Absolute Neuts (auto) 7.6, Absolute Lymphs (auto) 2.57, Nucleated RBC % 0, Sodium 135 L, Potassium 3.9, Chloride 102, Carbon Dioxide 23.0, Anion Gap 10, BUN 15, Creatinine 0.86, Estim Creat Clear Calc 96.78, Est GFR (MDRD) Af Amer 115, Est GFR (MDRD) Non-Af 95, BUN/Creatinine Ratio 17.5, Glucose 274 H, Hemoglobin A1c 5.8 H, Calcium 9.5, Triglycerides 451 H, Cholesterol 152, LDL Cholesterol TNP, VLDL Cholesterol TNP, HDL Cholesterol 36 L 10/15/24 08:15: POC Glucose 299 H 10/15/24 12:11: POC Glucose 343 H 10/15/24 17:07: POC Glucose 194 H Imaging Radiology Impression Brain MRI 10/14/24 14:19 IMPRESSION: Left thalamic and left centrum semiovale small acute infarctions. Dr. Syed was instructed to call for critical results. Reading Location: [id number] Echocardiogram 10/14/24 14:19 Interpretation Summary Normal LV size. Left ventricular systolic function is normal. The left ventricular ejection fraction is 65 %. Bubble contrast study is negative for PFO/ASD. Stage 1 diastolic dysfunction. Contrast injection was performed. Ordering Physician: Mali Ugarte Referring Physician: Alexis Lainez Performed By: Thomas Puente RCS Neck MRA 10/14/24 14:19 IMPRESSION: Decreased signal within the proximal right internal carotid artery favored to be artifact. CTA could be used to confirm. No definite acute arterial abnormality within the neck. Tortuous internal carotid arteries. Reading Location: [facility] Head MRA 10/14/24 14:54 IMPRESSION: No acute arterial abnormality. Reading Location: [facility] Brain CT 10/15/24 08:19 IMPRESSION: No acute intracranial hemorrhage, midline shift or mass effect. If symptoms persist, further evaluation with MRI is recommended. Reading Location: [facility] Active Medications Active Medications Active Medications: Current Medications Generic Name Dose Route Start Last Admin Trade Name Freq PRN Reason Stop Dose Admin Acetaminophen 650 mg 10/14/24 15:18 Acetaminophen 325 Mg Tablet PO Q6H PRN PRN Pain 1-10 Or Fever >100.7 Albuterol Sulfate 2.5 mg 10/14/24 15:18 Albuterol 2.5 Mg/3 Ml Vial.Neb. INHALATION Q2H PRN PRN SOB &/OR WHEEZING Aspirin 81 mg 10/15/24 08:00 10/15/24 09:54 Aspirin 81 Mg Tab.Chew PO 81 mg BREAKFAST HARDY Administration Atorvastatin Calcium 80 mg 10/15/24 22:00 Atorvastatin Calcium 80 Mg Tablet PO QHS HARDY Clopidogrel Bisulfate 75 mg 10/15/24 09:30 10/15/24 09:54 Clopidogrel Bisulfate 75 Mg Tablet PO 75 mg DAILY HARDY Administration Fenofibrate 145 mg 10/15/24 10:00 10/15/24 09:54 Fenofibrate 145 Mg Tablet PO 145 mg DAILY HARDY Administration Glucagon 1 mg 10/14/24 15:18 Glucagon 1 Mg/Ml Syringe IM X1 PRN HYPOGLYCEMIA Protocol Dextrose 250 mls @ 0 mls/hr 10/14/24 15:18 Dextrose 10%-Water IV .Q0M PRN HYPOGLYCEMIA Protocol As Directed Insulin Human Lispro 0 unit 10/14/24 16:00 10/15/24 17:21 Insulin Lispro 100 Unit/Ml Insuln.Pen SC 2 unit ACHS HARDY Administration Protocol Melatonin 3 mg 10/14/24 15:18 10/15/24 01:25 Melatonin 3 Mg Tablet PO 3 mg QHS PRN PRN Administration INSOMNIA Ondansetron HCl 4 mg 10/14/24 15:18 10/14/24 22:03 Ondansetron 4 Mg/2 Ml Vial IV 4 mg Q8H PRN PRN Administration NAUSEA/VOMITING Senna/Docusate Sodium 2 tablet 10/14/24 15:18 Senna/Docusate Sodium 1 Tablet PO BID PRN PRN Constipation Sodium Chloride 10 - 40 ml 10/14/24 17:47 10/14/24 22:03 0.9% Saline Lock 10 Ml Syringe IV 10 ml UD PRN Administration SALINE FLUSH
[2024-10-15] MEDS: Atorvastatin Calcium 80 MG Tablet PO (22:57)
[2024-10-15 23:29] LABS: Bedside Glucose 274 mg/dL (74-106)
[2024-10-16 02:00] VITALS: BP 141/87; PULSE 82; RESP 16; TEMP 36.8; O2SAT 96
[2024-10-16 03:00] VITALS: BMI 33.8
[2024-10-16 06:00] VITALS: BP 148/79; PULSE 82; RESP 18; TEMP 36; O2SAT 93
[2024-10-16] MEDS: Insulin Lispro 100 UNIT/ML INSULN.PEN SC ×2 (06:27→11:45)
[2024-10-16 06:50] LABS: Bedside Glucose 279 mg/dL (74-106)
[2024-10-16 07:35] VITALS: O2SAT 96
[2024-10-16 08:29] VITALS: BP 143/74; PULSE 79; TEMP 36.6; O2SAT 92
[2024-10-16] MEDS: Fenofibrate 145 MG Tablet PO (08:31)
[2024-10-16] MEDS: Aspirin 81 MG TAB.CHEW PO (08:32)
[2024-10-16] MEDS: Clopidogrel Bisulfate 75 MG Tablet PO (08:32)
[2024-10-16 08:40] VITALS: O2SAT 98
--- NOTE | 2024-10-16 10:20 | CASEMGMT ---
[employer] Insurance has approved stay in Inpatient Rehab and pt can admit today. Physician updated and pt is ready for discharge today. Lory in [facility] notified that pt will discharge today. SW met with pt and informed and pt is agreeable to dc plan. With pt permission, phone call to pt sister Anabelle and notified of discharge to [facility] today. MARGARITA Moreno
--- NOTE | 2024-10-16 11:27 | DCINST_ITS ---
Discharge Instructions Diet Discharge Diet: No restrictions DC O2, CPAP, BIPAP needs Home O2 Discharge instructions: No Dressing / Incision Discharge Activity: No Restrictions Follow Up Care Test Results: Test results from this visit will be discussed in further detail at your follow- up appointment, if applicable. Discharge Plan Admission Admit Date/Time: 10/15/24 12:20 Primary Reason for Your Visit: strokelike symptoms Attending Provider: Viet Boyce Primary Care Provider: AYLA RAMIREZ Consulting Providers: Rex Mccollum; Adriano Anne; Sarah Maldonado; Teressa Pagan; Luisa Rob; Ruddy Albert; Almaz Marroquin; Horace Del Cid; Elliot Tan; Jatin Smith; Lalitha Perdue; Yo Ibarra; Pamella Baptiste; German Malik; Brayan Howell; Dawson Noble; Severino Cochran; Nba Mcgarry; Florence Melchor; Belen Ruth; Mali Ugarte Discharge Orders/Prescriptions Prescriptions: New clopidogrel 75 mg Tablet 75 mg PO DAILY 19 Days Qty: 19 0RF Continued atorvastatin 20 mg tablet 20 mg PO DAILY metformin 1,000 mg tablet 1,000 mg PO BID losartan 100 mg tablet 100 mg PO DAILY aspirin 81 mg tablet,delayed release (DR/EC) 81 mg PO DAILY fenofibrate nanocrystallized 145 mg tablet 145 mg PO DAILY turmeric 400 mg capsule 1,650 mg PO Discontinued meloxicam 7.5 mg tablet 7.5 mg PO DAILY Referrals / Follow Up: AYLA RAMIREZ [Other] NOT,DEFINED [Non-Staff] - Disposition Disposition (needs filled in before D/C Order can be placed): Inpatient Rehab Unit/Facility
--- NOTE | 2024-10-16 11:29 | DS.PCM_ITS ---
Providers Date of Admission: 10/14/24 Date of Discharge: 10/16/24 Primary Care Physician: AYLA RAMIREZ Consultations 10/14/24 15:18 Consult: Tele-Neurology Routine Consulting Provider: [facility] Reason for Consult: Acute Ischemic Stroke/TIA EMERGENT Consult: No MD Notified: Yes Date Notified: 10/14/24 Time Notified: 16:47 Method of Notification: Answering Service Nursing Unit Staff Notify [facility] of Tele-Neurology Consult: Yes Reason For Visit: CVA Diagnosis Discharge Diagnosis (1) Acute CVA (cerebrovascular accident): Status: Acute Code(s): I63.9 - Cerebral infarction, unspecified Medications at Discharge Home Medications aspirin 81 mg tablet,delayed release 81 mg PO DAILY heart health 10/14/24 atorvastatin 20 mg tablet 20 mg PO DAILY cholesterol 10/14/24 fenofibrate nanocrystallized 145 mg tablet 145 mg PO DAILY cholesterol 10/14/24 losartan 100 mg tablet 100 mg PO DAILY blood pressure 10/14/24 metformin 1,000 mg tablet 1,000 mg PO BID blood sugar 10/14/24 turmeric 400 mg capsule 1,650 mg PO supplement 10/14/24 Held on 10/16/24. Instructions: MD Ordered clopidogrel 75 mg tablet 75 mg PO DAILY Blood thinner 19 days #19 tabs 10/16/24 Hospital Course Operations None Procedures EKG, Transthoracic echo and - (CT brain x 2, MRI brain, MRA head/neck, chest x- ray) Summary of Care Provided Minutes Spent on Discharge: 35 Hospital Course: Patient is a 64-year-old male who presented [facility] ED on 10/14/2024 with strokelike symptoms. Hospital course as noted below. Patient discharged to inpatient rehab in stable condition on 10/16. . Acute CVA ? Neurology followed. Presented with right arm dysmetria, right facial droop and abnormal speech. MRI brain showed left thalamic and left centrum semiovale small acute infarctions. Per neurology, patient's symptoms are consistent with infarcts in these areas. Had slight worsening on morning 10/15, repeat CT head unremarkable and neurology suspected patient was completing stroke. Lipid profile showed total cholesterol 152, HDL 36, triglycerides 151, LDL not calculated. A1c 5.8%. Echo showed EF 65%, no PFO/ASD. Per neurology, treat with aspirin and Plavix for 21 days then aspirin only and high intensity statin. PT/OT/case management followed. Stable for discharge to inpatient rehab on 10/16. 2. Type 2 diabetes mellitus ? A1c 5.8% on admit as noted above. However, blood sugars have been consistently in the 200s since admission. Treated with sliding scale insulin while inpatient, okay to resume home metformin on discharge. 3. Hypertension ? Held home losartan during hospitalization for permissive hypertension, okay to resume on discharge. 4. Hyperlipidemia ? Continue high intensity statin as noted above. Continue home fenofibrate as well. 5. Class I obesity ? BMI 33 on admit. Encouraged lifestyle modifications. Total clinical time spent by myself addressing the patient's medical issues, reviewing all the data, and collaborating with patient's care team: 35 minutes. Physical Exam Const alert, oriented x3 and no apparent distress Constitutional Narrative: Upper middle-aged male, class I obesity, mildly anxious appearing but otherwise sitting up comfortably in bed, answering questions appropriately but does have some speech difficulties noted. Stable. General Appearance: cooperative and comfortable HEENT normocephalic, head/scalp atraumatic, hearing grossly normal bilaterally, nasal mucous membranes and turbinates normal and moist oral mucous membranes HEENT Narrative: Right mild facial droop noted. Stable. Eyes PERRL, EOMs intact bilaterally and conjunctivae normal Neck full ROM Chest inspection of chest normal Resp normal respiratory effort, normal air movement, no use of accessory muscles and clear to auscultation bilaterally Cardio regular rate, regular rhythm, no murmurs and peripheral pulses 2+ throughout GI normal to inspection, nondistended, normoactive bowel sounds, soft to palpation, non-tender and non-distended Back/Spine normal ROM Extremity normal to inspection and no pedal edema Skin no rashes or lesions noted Neuro Neuro Narrative: +1/5 strength in right upper extremity with intact but decreased sensation noted. Mild right facial droop noted but sensation intact. No right lower extremity weakness noted. Speech difficulty noted. Stable. Psych mental status grossly normal Mood & Affect: anxious Weight / BMI Weight Weight: 97.976 kg Body Mass Index (BMI) 33.8 ABG / Lab / Microbiology Data 10/15/24 07:01 10/15/24 07:01 Laboratory: Laboratory Results - last 24 hr 10/15/24 12:11: POC Glucose 343 H 10/15/24 17:07: POC Glucose 194 H 10/15/24 22:54: POC Glucose 274 H 10/16/24 06:21: POC Glucose 279 H 10/16/24 11:45: POC Glucose 293 H D/C Instructions Discharge Diet: No restrictions DC O2, CPAP, BIPAP Needs Home O2 Discharge instructions: No Meaningful Use Info Meaningful Use Meaningful Use Diagnoses (Choose all that apply): Ischemic CVA CVA Therapy Assessed for PT,OT and/or ST?: Yes Ischemic Stroke Antithrombotic order at d/c?: Yes Dx of Atrial fib/flutter?: No Statin Dosing Therapy Reference: STATIN DOSE THERAPY REFERENCE: * Patients > 75 years receive moderate or high dose statin therapy. * Patients 75 years or YOUNGER should receive HIGH intensity statin dose unless contraindicated. You will be required to document reason for non-treatment if statin daily dose does not meet guidelines. HIGH DOSE STATIN THERAPY DAILY Atorvastatin > than or = to 40 mg Rosuvastatin > than or = to 20 mg Amlodipine + Atorvastatin > than or = to 2.5/40 mg Ezetimibe + Simvastatin 10/80 mg Simvastatin 80mg Statins at discharge?: Yes If patient is 75 or younger, pt will be discharged on HIGH intensity statin.: Y es Primary Dx Acute Ischemic CVA?: Yes Discharge Plan Admission Admit Date/Time: 10/15/24 12:20 Primary Reason for Your Visit: strokelike symptoms Attending Provider: Viet Boyce Primary Care Provider: AYLA RAMIREZ Consulting Providers: eRx Mccollum; Adriano Anne; Sarah Maldonado; Teressa Pagan; Luisa Rbo; Ruddy Albert; Almaz Marroquin; Horace Del Cid; Elliot Tan; Jatin Smith; Lalitha Perdue; Yo Ibarra; Pamella Baptiste; German Malik; Brayan Howell; Dawson Noble; Severino Cochran; Nba Mcgarry; Florence Melchor; Belen Ruth; Mali Ugarte Discharge Orders/Prescriptions Prescriptions: New clopidogrel 75 mg Tablet 75 mg PO DAILY 19 Days Qty: 19 0RF Continued atorvastatin 20 mg tablet 20 mg PO DAILY metformin 1,000 mg tablet 1,000 mg PO BID losartan 100 mg tablet 100 mg PO DAILY aspirin 81 mg tablet,delayed release (DR/EC) 81 mg PO DAILY fenofibrate nanocrystallized 145 mg tablet 145 mg PO DAILY turmeric 400 mg capsule 1,650 mg PO Discontinued meloxicam 7.5 mg tablet 7.5 mg PO DAILY Referrals / Follow Up: AYLA RAMIREZ [Other] NOT,DEFINED [Non-Staff] - Disposition Disposition (needs filled in before D/C Order can be placed): Inpatient Rehab Unit/Facility Charges/Coding Visit Charges Inpatient E&M: 77025 Disch Hosp >30min
[2024-10-16] MEDS: Senna/Docusate Sodium 1 Tablet 2 TABLET PO (11:46)
[2024-10-16 12:09] LABS: Bedside Glucose 293 mg/dL (74-106)
== END 2024-10-16 12:07 | DRG 65 ==
LOC: ED 13:09 → PCU 14:26
PROVIDERS: Admitting Provider Internal Medicine; Emergency Provider Emergency Medicine; Referring Provider Emergency Medicine; Visit Provider Hospitalist
DX: I63.89 Other cerebral infarction (principal); I50.30 Unspecified diastolic (congestive) heart failure; R29.712 NIHSS score 12; I11.0 Hypertensive heart disease with heart failure; E11.65 Type 2 diabetes mellitus with hyperglycemia; G31.9 Degenerative disease of nervous system, unspecified; Z68.33 Body mass index [BMI] 33.0-33.9, adult; I67.82 Cerebral ischemia; E78.5 Hyperlipidemia, unspecified; M54.16 Radiculopathy, lumbar region; F10.90 Alcohol use, unspecified, uncomplicated; F17.200 Nicotine dependence, unspecified, uncomplicated; R29.704 NIHSS score 4; Z79.82 Long term (current) use of aspirin; E66.811 Obesity, class 1; Z79.02 Long term (current) use of antithrombotics/antiplatelets; Z91.041 Radiographic dye allergy status; Z88.8 Allergy status to other drugs, medicaments and biological substances; Z79.899 Other long term (current) drug therapy; Z79.84 Long term (current) use of oral hypoglycemic drugs; R29.708 NIHSS score 8; R27.8 Other lack of coordination; R29.810 Facial weakness; R47.9 Unspecified speech disturbances; G89.29 Other chronic pain; Z86.0100 Personal history of colon polyps, unspecified
CPT/HCPCS: 36415; 70450; 70544; 70549; 70551; 71045; 80048; 80061; 82962; 83036; 84484; 85025; 85610; 85730; 92522; 92610; 93005; 93306; 94762; 97110; 97116; 97162; 97166; 97530; 97535; 97802; 99285; A9575; Q9957; A4216; C8929; J2405

== ENCOUNTER 2024-10-16 12:26 | Inpatient (IN) | payer OTHER, SELFPAY ==
[2024-10-16 12:48] VITALS: BP 134/72; PULSE 87; RESP 18; TEMP 36.8; O2SAT 94; BMI 32.7
--- NOTE | 2024-10-16 13:47 | EX.PCM.HP.RE ---
[facility] - General General Date of Admission: 10/16/24 Date of Service: 10/16/24 Chief Complaint: Post stroke debility HPI Narrative LAWRENCE CRISTINA, is a 64 YO M with a PMH of DM II, hyperlipidemia, hypertension, colon polyps, chronic back pain with radicular pain into the left lower extremity (has never had an MRI or a CT of the low back) and obesity who presented to the emergency department at [facility] on 10/14/24 complaining of right facial droop and slurred speech. NIH at arrival was 4. Noncontrast CT brain was negative for acute process. He has a dye allergy so a CTA was not done. Instead he had an MRI and MRA. The MRI showed left thalamic and left centrum semiovale acute infarctions. MRA of the neck showed decreased signal within the proximal right internal carotid artery which was felt to be artifact. MRA of the head showed no significant areas of stenosis and no large vessel occlusions. He was not a candidate for thrombolysis since it had been more than 5 hours since symptom onset. Tele-neurology was consulted and recommended dual antiplatelet therapy, high intensity statin, transthoracic echocardiogram, hemoglobin A1c and lipid panel. At the time the teleneurologist saw him the NIHSS was 12. He was admitted to the hospitalist service and started on aspirin and a high intensity statin (he was only taking Atorvastatin 20 mg at admission to ED). Transthoracic echocardiogram showed an ejection fraction of 65% with stage I diastolic dysfunction and no regional wall motion abnormalities. Both atria were of normal size and the bubble contrast study was negative for kvuzr-[id number]-pzhz shunt. There was no significant valvular heart disease. Hemoglobin A1c was 5.8%. Triglycerides were 451 and the total cholesterol was 152 with an HDL of 36.The calculated LDL is 107. Creatinine was 0.82. Medications at admission included aspirin 81 mg daily, atorvastatin 20 mg daily, fenofibrate 145 mg daily losartan 100 mg daily metformin 1000 mg twice daily and 7.5 mg of meloxicam once daily. While in the hospital he was seen by PT/OT/ST. His modified Holly score was a 4. Admission to acute inpatient rehab was recommended at discharge. He was transferred to the acute inpatient rehab unit at [facility] on 10/16/2024 for 3 hours of therapy daily to restore function/independent at or near his level prior to the recent stroke. Lawrence tells me that his HGBA1C has usually been in the 8's. It was 8.1 in September. He started taking medications for hypertension, hyperlipidemia and diabetes in 2012. Also in 2012 he had a stress test followed by cardiac catheterization. He has never had any intervention. He smokes cigars sometimes to relax. He tends to drink alcohol heavily on the weekends. FOR[facility]LY [facility], [facility] Medical History (Updated 10/16/24 @ 16:[address] Vero Ryder DO) Colon polyps Obesity (BMI 30.0-34.9) Alcohol use Cigar smoker HTN (hypertension) Hyperlipidemia Diabetes mellitus type 2 with complications Home Medications ?Medication ?Instructions ?Recorded ?Last Taken ?Type aspirin 81 mg tablet,delayed 81 mg PO DAILY heart health 10/14/24 10/13/24 History release atorvastatin 20 mg tablet 20 mg PO DAILY cholesterol 10/14/24 10/14/24 History fenofibrate nanocrystallized 145 145 mg PO DAILY cholesterol 10/14/24 10/16/24 History mg tablet losartan 100 mg tablet 100 mg PO DAILY blood pressure 10/14/24 10/13/24 History metformin 1,000 mg tablet 1,000 mg PO BID blood sugar 10/14/24 10/14/24 History turmeric 400 mg capsule 1,650 mg PO supplement 10/14/24 Unknown History Held on 10/16/24. Instructions: Ordered clopidogrel 75 mg tablet 75 mg PO DAILY Blood thinner 19 10/16/24 10/16/24 Rx days #19 tabs Allergy/AdvReac Type Severity Reaction Status Date / Time Iodinated Contrast Media Allergy Intermediate Hives Verified 10/14/24 12:25 (contrast dye - iodinated) rosuvastatin AdvReac Myalgia Verified 10/16/24 15:24 Family History (Updated 10/16/24 @ 15:[address] Vero Ryder DO) Mother CVA (cerebral vascular accident) Heart disease Brother CVA (cerebral vascular accident) Heart disease Father Cancer pancreatic cancer Sister Heart disease Other Diabetes Hypertension Social History (Updated 10/16/24 @ 15:[address] 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 ROS Review of Systems ROS Unobtainable: Denies due to encephalopathy, due to endotracheal tube, due to mental condition or due to mental status Constitutional Constitutional: Reports fatigue and weakness; Denies anorexia, change in weight, chills, fever(s), headache(s) or night sweats Eyes Eyes: Denies blurry vision, change in vision, eye pain or loss of vision ENT HEENT: Reports dry mouth; Denies abnormal hearing, dizziness, dysphagia, facial pain, headache(s), hearing loss, nasal congestion or sore throat Cardiovascular Cardiovascular: Reports palpitations; Denies chest pain, dyspnea on exertion, edema, lightheadedness, orthopnea, paroxysmal nocturnal dyspnea, pedal edema or syncope Respiratory/Chest Respiratory/Chest: Denies cough, dyspnea, shortness of breath at rest, shortness of breath with exertion or wheezing Gastrointestinal Gastrointestinal: Reports constipation and other Details: No history of peptic ulcer disease ; Denies abdominal pain, diarrhea, dyspepsia, hematemesis, hematochezia, nausea or vomiting Genitourinary Genitourinary: Reports other Details: Urine retention ; Denies dysuria, hematuria, nocturia, urinary frequency, urinary hesitancy, urinary incontinence or urinary urgency Musculoskeletal Musculoskeletal: Reports back pain and radiating pain into limb; Denies joint pain, joint swelling or neck pain Integumentary Integumentary: Denies changing lesions, jaundice or rash Neurologic Neurologic: Reports focal weakness, paresthesias, radicular pain and sensory deficit; Denies confusion, disequilibrium, dizziness, headache(s), seizures or tremor(s) Psychiatric Psychiatric: Reports anxiety and depression; Denies homicidal ideation or suicidal ideation Endocrine Endocrinology: Denies change in body appearance, polydipsia or polyuria Hematologic/Lymphatic Hematologic/Lymphatic: Denies easy bleeding, easy bruising or lymphadenopathy Allergic/Immunologic Allergic/Immunologic: Denies rhinitis, eczemia or asthma Indicators for Scoring Admitted with or Primary Diagnosis of CVA/Stroke: Yes Hx of CVA/Stroke: Yes Modified Sg Score MRS Score at time of Evaluation: 5-Severe disability NIHSS NIHSS 1a. Level of Consciousness: Alert; keenly responsive 1b. LOC Questions: Answers BOTH questions correctly. 1c. LOC Commands: Performs both tasks correctly. 2. Best Gaze: Normal 3. Visual: No visual loss 4. Facial Palsy: Partial paralysis (total or near-total paralysis of lower face) 5a. Left Arm: No drift; arm holds 90 (or 45) degrees for full 10 seconds 5b. Right Arm: No movement 6a. Left Leg: No drift; leg holds 30-degree position for full 5 seconds 6b. Right Leg: No movement 7. Limb Ataxia: Absent 8. Sensory: [id number] sensory loss; (has intact sensation on the R side but, the R side is dull to pinprick and the Left side is sharp) 9. Best Language: [id number] aphasia; 10. Dysarthria: Gqcu-re-xudkavyt dysarthria; 11. Extinction and Inattention: No abnormality Total: 13 Stroke Questions Stroke Team Activated: No Physical Exam Const alert, oriented x3, no apparent distress and average body habitus Constitutional Narrative: anxious General Appearance: cooperative and well kempt HEENT normocephalic HEENT Narrative: very dry MM Eyes PERRL, EOMs intact bilaterally, conjunctivae normal and no scleral icterus Eyes Narrative: No discharge from the eyes and no mattering of the eyelashes. Neck supple, No nodes and no carotid bruits General: trachea midline Resp normal respiratory effort, no use of accessory muscles and clear to auscultation bilaterally Resp Narrative: mildly diminished breath sounds throughout Effort and Inspection: able to speak in complete sentences Cardio regular rate, regular rhythm, S1 normal heart sound, S2 normal heart sound, no murmurs, no rub and no gallops Cardio Narrative: No ectopy GI normal to inspection, nondistended, normoactive bowel sounds, soft to palpation and non-tender GI Narrative: No guarding with palpation. No abdominal bruits. No masses. no CVA tenderness Narrative: 338 post void residual Extremity no calf tenderness and no pedal edema Extremity Narrative: No clubbing and no cyanosis Skin no jaundice General Skin Exam: no breakdown Rashes: no rashes Neuro oriented x3 Neuro Narrative: ALert. able to follow commands. R facial droop. Cant not raise the R eyebrow and can not close the R eye as tightly as the left. Can not shrug the R shoulder. Decreased sensation R face but, he can feel me touch him. No R side neglect. No movement in the R arm or the R leg. 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 Sensation in the R face, arm, and leg is decreased. Can not check for ataxia on the R side due to no movement. No extinction. No visual field cuts. Psych denies hallucinations, denies homicidal ideation and denies suicidal ideation Psych Narrative: Admits to feeling anxious and depressed. Has never been treated for anxiety or depression in the past. slept better last night but, has not been sleeping well in the hospital. Appetite is decreased. Irritable at times. Appearance: appropriate and well kempt Attitude: engaged Activity / Motor Behavior: appropriate eye contact Speech: slurred Mood & Affect: anxious and irritable Assessment & Plan Assessment/Plan (1) Physical debility: (2) Acute CVA (cerebrovascular accident): (3) Hemiplegia affecting right dominant side: QUALIFIERS: Hemiplegia type: flaccid Hemiplegia etiology: late effect of cerebrovascular disease Cerebrovascular disease type: cerebral infarction Qualified Code(s): I69.351 - Hemiplegia and hemiparesis following cerebral infarction affecting right dominant side (4) Dysarthria due to acute stroke: (5) Facial droop due to acute stroke: (6) Paresthesias: (7) Urine retention: (8) HTN (hypertension): QUALIFIERS: Hypertension type: primary hypertension Qualified Code(s): I10 - Essential (primary) hypertension (9) Hyperlipidemia: QUALIFIERS: Hyperlipidemia type: mixed hyperlipidemia Qualified Code(s): E78.2 - Mixed hyperlipidemia (10) Diabetes mellitus type 2 with complications: (11) Cigar smoker: (12) Alcohol use: (13) Obesity (BMI 30.0-34.9): (14) Colon polyps: QUALIFIERS: Colon polyp type: unspecified Colon location: unspecified part of colon Qualified Code(s): K63.5 - Polyp of colon PLAN: He is overdue for a follow up colonoscopy PLAN: Plan PLAN PT for gait stability OT for ADL's ST for evaluation Analgesics as needed Bowel protocol Fall precautions Assess for Anxiety/Depression - start Buspar for anxiety and Sertraline. GI prophylaxis -not necessary at this time. Denies history of peptic ulcer disease. Denies heartburn, nausea, vomiting and epigastric discomfort. DVT prophylaxis with Lovenox 40 mg subcu daily Follow up with PCP and cardiology. He is okay with following up with Dr. Cruz from neurology. Will need a new PCP from [place] at discharge AM lab including CMP, CBC, Mag and Phos. 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 Stephan Christopher, and his PCP Will need a follow up colonoscopy going forward.......he has a hx of multiple polyps and he is overdue to follow up. Smoking cessation counselling given. Advised no more than 2 alcoholic drinks per day. Discussed the goals of tx. BP < 130/80, HGBA1C consistently 7 or less, LDL < 70 and HDL 40 or greater. TRIG should improve with better blood sugar control and cutting out alcohol. Increase the Atorvastatin to a high intensity dose of 40 mg. He had myalgia with Rosuvastatin in the past. Charges/Coding Visit Charges Inpatient E&M: 53378 Init Hosp L3
[2024-10-16 16:02] LABS: Bacteria 0 SEEN /hpf (None Seen); Mucous, Urine 0 SEEN /hpf (<or=2+); Squamous Epithelial Cells - UA 0 SEEN /hpf (0-5)
--- NOTE | 2024-10-16 16:15 | PCM.RU.PYE ---
Admission Information Primary Diagnosis:: Post stroke debility Status Changes from Prescreening?: No changes Identified Actual Problem List:: Pain, ALteration in Cmfrt, Depression, Bowel, Constipation, Alteration in Sleep, Alteration in Nutrition, Mobility Impaired, Self Care Deficit, Know.Dfct/Disease Process, Diabetes, Hyperglycemia, BP, Hypertension and Fluid Change-Dehydration Potential Problem List:: DVT, Bleeding, Infection, UTI, Aspiration, Falls, Skin Integrity and Depression Risk of Complications DVT: LMWH and CLAUDIO Hose Bleeding: Monitor Lab Values, Nursing to Teach Precautions for anti-coagulation therapy., Wound, if applicable, to be assessed every shift. and Stroke patients assessed for lethargy or change in status. Infection: Clinical Staff to Monitor for S/S of infection: and S/S of infection include fever, redness, warmth, etc. Urinary Tract Infection: Monitor for frequency, burning, discomfort, or incontinence. and Nursing will obtain urine sample for urinalysis and C&S when ordered. Aspiration: Clinical staff will monitor for coughing, drooling, congestion., Speech will evaluate swallowing and dsyphasia. and Nursing will monitor patient swallowing during meals. Falls: Patient will be evaluated for Fall Precautions and Patient will be placed on Fall Precautions as indicated per protocol. Skin Breakdown: Nursing will assess skin daily using assessment tool. and Nursing will place on Skin Breakdown Precautions as indicated. Pain: Clinical staff will assess patient's pain level per protocol., Medications will be given, if needed, and the pain level reassessed. and Other methods: Massage, distraction, decrease stimulus, etc. used PRN. Plan of Care Patient requires physician specializing in physical medicine and rehab oversight to provide close medical supervision of rehab issues including: Pain Management, Sleep Problems, Bowel and Bladder, Medical and co-morbidity Management, DVT prophylaxis, Rehabilitation Leadership and Coordination of treatment team Patient needs Physical Therapy: For a minimum of 1 hour and At least 5 out of 7 days Patient needs Physical Therapy to improve:: Mobility, Strengthening, Transfers, Stretching, ROM, Endurance, Stairs, Gait and Balance Patient needs Occupational Therapy: For a minimum of 1 hour and At least 5 out of 7 days Patient needs Occupational Therapy to improve ADL's incl.: Eating, Grooming, Bathing, Dressing, Toileting, Toilet transfers, Community Reintegration, Higher functioning activities, Household tasks, Adaptive Equipment, Splinting and Other activities as determined Patient requires speech therapy: For a minimum of 1 hour and At least 5 out of 7 days Patient requires speech therapy for: Swallowing, Cognition, Language Skills and Compensatory Strategies Patient requires 24/ Rehabilitation Nursing for: Pain Issues, Identifying and preventing risk factors, Monitoring and reporting current medical conditions, Assisting with ambulation, transfer, and all ADL's, Teaching patients about disease process and medications, Family teaching, Providing safe environment, Bowel and Bladder Issues, Skin integrity and Medication Management Patient needs Lay Out Machine Operator/ Case Management for: Discharge Planning, Arranging Home Equipment or Services and Family Interventions Patient needs Dietary and Nutrition Services for: Adequate Nutrition, Nutritional Supplements and Nutritional Education Goals Goals Patient will remain: free from falls Patient will perform eating at: MOD I level of assist. Patient will perform bed mobility at: MOD I level of assist. Patient will complete transfers from bed to chair at: MOD I level of assist. Patient will ambulate: - (150 feet with least restrictive device at contact-guard assist) Patient will complete upper body dressing at: - (Min assist) Patient will complete lower body dressing at: - (Min assist using adaptive equipment as needed) Patient will complete toilet transfer at: - (Contact-guard assist) Patient will complete toileting at: - (Contact-guard assist) Patient will perform bathing at: - (Minimal assistance using adaptive equipment/DME as needed.) Patient will perform Tub/Shower transfer at: - (Moderate assistance) Patient will complete grooming at: - (Contact-guard assist) Patient will achieve: - (Ascend/descend 4 steps with handrail at supervision) Patient will have pain level of: of 3 or less Patient's skin will: remain intact Patient will receive: adequate nutrition. Discharge Planning Pt Prognosis for Sig. Practical Improv. w/in Reasonable Time: Good Estimated Length of stay (days): 28 Anticipated D/C Destination: TBD Was Preadmission Assessment Accurate?: Yes
[2024-10-16 16:29] LABS: Color, Urine Yellow (Yellow); Glucose, Dipstick 1000 mg/dl (Normal); Ketone-Dipstick 5 mg/dl (Negative); Leukocyte Esterase-Dipstick Negative /ul (Negative); Nitrite-Dipstick Negative (Negative); Occult Blood-Urine Negative /ul (Negative); Protein-Dipstick 15 mg/dl (Negative); Specific Gravity, Urine 1.025 (1.002-1.030); Urine Bilirubin Dipstick Negative (Negative); Urine Clarity Clear (Clear); Urine Urobilinogen Normal (Normal)
[2024-10-16 16:52] LABS: Red Blood Cells-Urine 0 SEEN /hpf (0-5); White Blood Cells 0-5 SEEN /hpf (0-5)
[2024-10-16] MEDS: Insulin Lispro 100 UNIT/ML INSULN.PEN SC ×2 (17:35→21:15)
[2024-10-16] MEDS: metFORMIN HCl 1,000 MG Tablet 1000 MG PO (17:36)
[2024-10-16 17:43] LABS: Bedside Glucose 207 mg/dL (74-106)
[2024-10-16 18:00] VITALS: BP 122/80; PULSE 91; RESP 18; TEMP 36.4; O2SAT 96
[2024-10-16] MEDS: Atorvastatin Calcium 40 MG Tablet PO (20:50)
[2024-10-16] MEDS: busPIRone 5 MG Tablet PO (20:50)
[2024-10-16] MEDS: Senna/Docusate Sodium 1 Tablet 2 TABLET PO (20:51)
[2024-10-16 21:53] LABS: Bedside Glucose 247 mg/dL (74-106)
[2024-10-16] MEDS: Zolpidem Tartrate 5 MG Tablet PO (23:05)
[2024-10-17 00:20] VITALS: BMI 32.7
[2024-10-17] MEDS: busPIRone 5 MG Tablet PO ×3 (05:44→22:03)
[2024-10-17] MEDS: Enoxaparin 40 MG/0.4 ML Syringe SC (05:47)
[2024-10-17 06:00] VITALS: BP 144/87; PULSE 90; RESP 18; TEMP 36.4; O2SAT 94
[2024-10-17 06:44] LABS: Absolute Lymphocyte Count 3.42 X10^3/uL (0.83-4.51); Absolute Neutrophil Count 8.8 X10^3/uL (2.0-7.7); Basophil# 0.07 X10^3/uL; Basophil% 0.5 % (0-1); Eosinophils% 1.5 % (0-5); Hematocrit 46.7 % (40-54); Lymphocyte # 3.42 X10^3/ul (0.83-4.51); Lymphocyte % 25.1 % (19-41); Mean Corp Hgb Conc 34.3 g/dL (32-36); Mean Corpuscular Hgb 30.8 pg (27.0-32.0); Mean Corpuscular Volume 89.8 fL (80-94); Mean Platelet Vol. 10.3 fl (6.2-12.0); Monocyte# 1.01 X10^3/uL; Monocyte% 7.4 % (0-10); NRBC Flagged by Analyzer 0 % (0-5); Neutrophil # 8.75 X10^3/uL (2.7-7.7); Neutrophil % 64.4 % (47-70); Platelet Count 384 K/mm3 (150-450); RBC Distribution Width CV 12.3 % (11.6-14.6); RBC Distribution Width SD 40.3 fl (35.1-43.9); White Blood Count 13.6 K/mm3 (4.4-11.0)
[2024-10-17 06:46] LABS: Bedside Glucose 281 mg/dL (74-106)
[2024-10-17 07:23] LABS: ALB/GLOB Ratio 0.9 RATIO (0.9-2.4); AST(SGOT) 30 U/L (15-37); Alanine Aminotransfer ALT/SGPT 58 U/L (16-61); Albumin, Serum 3.7 g/dL (3.2-5.0); Alkaline Phosphatase 59 U/L (45-117); Anion Gap 9 (5-15); BUN 22 mg/dL (7-18); BUN/Creat Ratio 25.8 RATIO (10-20); Calcium,Total 9.2 mg/dL (8.5-10.1); Chloride 103 mmol/L (98-107); Creatinine, Serum 0.85 mg/dL (0.70-1.30); EST Glomerular Filtration Rate 96 mL/min (>60); Est Glom Filt Rate - Afr Amer 116 mL/min (>60); Estimated Creatinine Clearance 94.53 ml/min; Glucose 247 mg/dL (74-106); Magnesium 2.3 mg/dL (1.6-2.6); Phosphorus 3.3 mg/dL (2.5-4.9); Potassium 3.5 mmol/L (3.5-5.1); Protein, Total 7.7 g/dL (6.4-8.2); Sodium Level 136 mmol/L (136-145)
[2024-10-17] MEDS: Insulin Lispro 100 UNIT/ML INSULN.PEN SC ×3 (07:51→17:10)
[2024-10-17] MEDS: Senna/Docusate Sodium 1 Tablet 2 TABLET PO ×2 (07:52→22:03)
[2024-10-17] MEDS: metFORMIN HCl 1,000 MG Tablet 1000 MG PO ×2 (07:53→17:10)
[2024-10-17] MEDS: Fenofibrate 145 MG Tablet PO (07:53)
[2024-10-17] MEDS: Aspirin E.C. 81 MG Tablet PO (07:53)
[2024-10-17] MEDS: Clopidogrel Bisulfate 75 MG Tablet PO (07:53)
[2024-10-17] MEDS: Sertraline 50 MG Tablet PO (07:53)
[2024-10-17] MEDS: Losartan Potassium 100 MG Tablet PO (07:53)
--- NOTE | 2024-10-17 07:53 | NURSING ---
Intermittent coughing noted when drinking water. Able to clear on own. Dayshift RN aware. ST aware as well.
[2024-10-17 11:45] LABS: Bedside Glucose 228 mg/dL (74-106)
--- NOTE | 2024-10-17 12:43 | PN_ITS ---
Subjective Subjective Afebrile VSS -blood pressure over the past 24 hours has ranged from 122/88 to 144/87. Heart rate has ranged from 79-91. Maintaining appropriate oxygen saturation on RA-94 to 96% while awake. Oral intake - FOOD good FLUIDS poor Blood sugar record was reviewed. Discussed with nursing - no problems that need addressed. Slept well last night. Reviewed the THERAPY notes Medication list reviewed. All lab from this morning was personally reviewed. White blood cell count is elevated at 13.6. Hemoglobin is 16 and platelet count is within normal limits. Sodium is 136 and the potassium is 3.5. Serum bicarbonate is 24. BUN is 22 with a creatinine of 0.85. Calcium, magnesium and phosphorus are all within normal limits. LFTs are normal. UA yesterday was negative for infection but the specific gravity was elevated at 1.025 and he had glucosuria and proteinuria. Slept better last night. Less anxious today. Denies cephalgia, lightheadedness, chest pain, shortness of breath, nausea/vomiting/abdominal pain, dysuria and calf tenderness. He does have a dry mouth. Not complaining of back pain radicular pain. Objective Data Objective Data Vital Signs: Vital Signs Temp Pulse Resp BP Pulse Ox O2 Del Method 97.5 F L 90 18 144/87 H 94 Room Air 10/17/24 06:00 10/17/24 06:00 10/17/24 06:00 10/17/24 06:00 10/17/24 06:00 10/17/24 06:00 Oxygen Delivery Method Room Air Weight: 208 lb 8.987 oz Body Mass Index (BMI) 32.7 Intake & Output: Intake and Output for Last 24 Hours 10/15/24 10/16/24 10/17/24 23:59 23:59 23:59 Intake Total 640 / 640 240 / 240 Output Total 610 / 610 350 / 350 Balance 30 / 30 -110 / -110 Lab / Micro Data 10/17/24 06:00 10/17/24 06:00 Labs: Laboratory Results - last 24 hr 10/16/24 15:40: Urine Color Yellow, Urine Clarity Clear, Urine pH 6.0, Ur Specific [place] 1.025, Urine Protein 15 H, Urine Glucose (UA) 1000 H, Urine Ketones 5 H, Urine Occult Blood Negative, Urine Nitrite Negative, Urine Bilirubin Negative, Urine Urobilinogen Normal, Ur Leukocyte Esterase Negative, Urine RBC 0 SEEN, Urine WBC 0-5 SEEN, Ur Squamous Epith Cells 0 SEEN, Urine Bacteria 0 SEEN, Urine Mucus 0 SEEN 10/16/24 17:04: POC Glucose 207 H 10/16/24 21:02: POC Glucose 247 H 10/17/24 06:00: WBC 13.6 H, RBC 5.20, Hgb 16.0, Hct 46.7, MCV 89.8, MCH 30.8, MCHC 34.3, RDW Std Deviation 40.3, RDW Coeff of Vu 12.3, Plt Count 384, MPV 10.3, Immature Gran % (Auto) 1.100 H, Neut % (Auto) 64.4, Lymph % (Auto) 25.1, [place] % (Auto) 7.4, Eos % (Auto) 1.5, Baso % (Auto) 0.5, Absolute Neuts (auto) 8.8 H, Absolute Lymphs (auto) 3.42, Nucleated RBC % 0, Sodium 136, Potassium 3.5, Chloride 103, Carbon Dioxide 24.0, Anion Gap 9, BUN 22 H, Creatinine 0.85, Estim Creat Clear Calc 94.53, Est GFR (MDRD) Af Amer 116, Est GFR (MDRD) Non-Af 96, BUN/Creatinine Ratio 25.8 H, Glucose 247 H, Calcium 9.2, Phosphorus 3.3, Magnesium 2.3, Total Bilirubin 0.70, AST 30, ALT 58, Alkaline Phosphatase 59, Total Protein 7.7, Albumin 3.7, Globulin 4.0, Albumin/Globulin Ratio 0.9 10/17/24 06:12: POC Glucose 281 H 10/17/24 11:18: POC Glucose 228 H Physical Exam Const alert and no apparent distress Constitutional Narrative: Calm. Making good eye contact and engaged in the conversation. General Appearance: cooperative HEENT Mouth: dry mucous membranes Resp clear to auscultation bilaterally Effort and Inspection: Negative for tachypneic or respiratory distress Cardio regular rate and regular rhythm GI normal to inspection, nondistended, normoactive bowel sounds and soft to palpation GI Narrative: Had a bowel movement. No guarding with palpation. Extremity no calf tenderness General Extremity: Negative for edema Skin General Skin Exam: dry skin Rashes: no rashes Assessment & Plan Assessment/Plan (1) Physical debility: (2) Acute CVA (cerebrovascular accident): (3) Hemiplegia affecting right dominant side: QUALIFIERS: Hemiplegia type: flaccid Hemiplegia etiology: late effect of cerebrovascular disease Cerebrovascular disease type: cerebral infarction Qualified Code(s): I69.351 - Hemiplegia and hemiparesis following cerebral infarction affecting right dominant side (4) Dysphagia: QUALIFIERS: Dysphagia type: oropharyngeal phase Qualified Code(s): R13.12 - Dysphagia, oropharyngeal phase (5) Dysarthria due to acute stroke: (6) Facial droop due to acute stroke: (7) Paresthesias: (8) Urine retention: (9) HTN (hypertension): QUALIFIERS: Hypertension type: primary hypertension Qualified Code(s): I10 - Essential (primary) hypertension (10) Hyperlipidemia: QUALIFIERS: Hyperlipidemia type: mixed hyperlipidemia Qualified Code(s): E78.2 - Mixed hyperlipidemia (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 Continue therapy 2. And glargine 16 units at bedtime. 3. Continue the sliding insulin scale blood cover only before meals. 4. Supplement potassium today. Would like to keep the potassium around 4. 5. Continue metformin. 6. Continue sertraline and BuSpar. 7. Continue to encourage increased fluid intake. Charges/Coding Visit Charges Inpatient E&M: 38029 Subs Hosp L1
[2024-10-17] MEDS: Potassium Chloride Oral Tablet 20 MEQ 40 MEQ PO (14:35)
[2024-10-17 17:00] VITALS: BMI 32.7
[2024-10-17 17:24] LABS: Bedside Glucose 245 mg/dL (74-106)
[2024-10-17 18:00] VITALS: BP 131/72; PULSE 89; RESP 16; TEMP 36.9; O2SAT 95
[2024-10-17 18:43] LABS: Protein, Urine (Random) 9.5 mg/dL (<11.9); Protein:Creat Ratio 60 mg/g CRE (0-200)
[2024-10-17] MEDS: Atorvastatin Calcium 40 MG Tablet PO (22:03)
[2024-10-17] MEDS: Insulin Glargine-YFGN 100 UNIT/ML Pen 16 UNIT SC (22:24)
[2024-10-17] MEDS: Zolpidem Tartrate 5 MG Tablet PO (22:51)
[2024-10-18 00:45] LABS: Bedside Glucose 220 mg/dL (74-106)
[2024-10-18 00:48] VITALS: BMI 32.7
[2024-10-18] MEDS: busPIRone 5 MG Tablet PO ×3 (06:30→20:58)
[2024-10-18] MEDS: Enoxaparin 40 MG/0.4 ML Syringe SC (06:30)
[2024-10-18 06:40] VITALS: BP 129/67; PULSE 86; RESP 17; TEMP 36.4; O2SAT 95
[2024-10-18 06:44] LABS: Bedside Glucose 241 mg/dL (74-106)
[2024-10-18] MEDS: Sertraline 50 MG Tablet PO (08:06)
[2024-10-18] MEDS: metFORMIN HCl 1,000 MG Tablet 1000 MG PO ×2 (08:06→17:00)
[2024-10-18] MEDS: Losartan Potassium 100 MG Tablet PO (08:06)
[2024-10-18] MEDS: Senna/Docusate Sodium 1 Tablet 2 TABLET PO (08:07)
[2024-10-18] MEDS: Fenofibrate 145 MG Tablet PO (08:07)
[2024-10-18] MEDS: Insulin Lispro 100 UNIT/ML INSULN.PEN SC ×5 (08:07→17:01)
[2024-10-18] MEDS: Aspirin E.C. 81 MG Tablet PO (08:07)
[2024-10-18] MEDS: Clopidogrel Bisulfate 75 MG Tablet PO (08:07)
[2024-10-18 11:05] LABS: Bedside Glucose 214 mg/dL (74-106)
[2024-10-18 17:00] VITALS: BMI 32.7
[2024-10-18 17:02] LABS: Bedside Glucose 188 mg/dL (74-106)
[2024-10-18 18:00] VITALS: BP 116/60; PULSE 84; RESP 17; TEMP 36.7; O2SAT 96
[2024-10-18] MEDS: Insulin Glargine-YFGN 100 UNIT/ML Pen 24 UNIT SC (20:58)
[2024-10-18] MEDS: NYSTATIN 500,000 UNIT/5 ML UDC 500000 UNIT PO (21:03)
[2024-10-18] MEDS: Atorvastatin Calcium 40 MG Tablet PO (21:04)
[2024-10-18] MEDS: Zolpidem Tartrate 5 MG Tablet PO (22:50)
[2024-10-18 22:54] LABS: Bedside Glucose 192 mg/dL (74-106)
[2024-10-19 02:28] VITALS: BMI 32.7
[2024-10-19] MEDS: busPIRone 5 MG Tablet PO ×3 (05:36→21:28)
[2024-10-19] MEDS: Enoxaparin 40 MG/0.4 ML Syringe SC (05:36)
[2024-10-19 06:00] VITALS: BP 114/58; PULSE 79; RESP 16; TEMP 36.7; O2SAT 96
[2024-10-19 06:43] LABS: Bedside Glucose 225 mg/dL (74-106)
[2024-10-19] MEDS: Insulin Lispro 100 UNIT/ML INSULN.PEN SC ×3 (07:47→17:00)
[2024-10-19] MEDS: Sertraline 50 MG Tablet PO (07:49)
[2024-10-19] MEDS: Losartan Potassium 100 MG Tablet PO (07:49)
[2024-10-19] MEDS: Fenofibrate 145 MG Tablet PO (07:49)
[2024-10-19] MEDS: metFORMIN HCl 1,000 MG Tablet 1000 MG PO ×2 (07:49→16:59)
[2024-10-19] MEDS: Clopidogrel Bisulfate 75 MG Tablet PO (07:49)
[2024-10-19] MEDS: NYSTATIN 500,000 UNIT/5 ML UDC 500000 UNIT PO ×4 (07:49→21:28)
[2024-10-19] MEDS: Aspirin E.C. 81 MG Tablet PO (07:49)
[2024-10-19] MEDS: Senna/Docusate Sodium 1 Tablet 2 TABLET PO ×2 (07:50→21:28)
--- NOTE | 2024-10-19 09:20 | PCM.PROGNOTE ---
Subjective Subjective Afebrile VSS -blood pressure over the past 24 hours has ranged from 114/58 to 144/87. Heart rate is within normal limits. Maintaining appropriate oxygen saturation on RA Oral intake - FOOD good FLUIDS fair The blood sugar record was reviewed. Discussed with nursing - no problems that need addressed. Wearing his CPAP all night. Reviewed the THERAPY notes Medication list reviewed. Urine protein/creatinine ratio is 60 which is within normal limits. Denies cephalgia, lightheadedness, shortness of breath, chest pain, palpitations, nausea/vomiting/epigastric pain, dysuria and calf tenderness. He does not feel like his bowels are working properly. He is used to having a BM daily at around 11 AM. He had a BM on Saturday and Saturday. Both BM's were large and soft. He admits that he is uncomfortable to having to have help to use the toilet. He has a cough when drinking fluids still. Objective Data Objective Data Vital Signs: Vital Signs Temp Pulse Resp BP Pulse Ox O2 Del Method 98.0 F 79 16 114/58 L 96 Room Air 10/19/24 06:00 10/19/24 06:00 10/19/24 06:00 10/19/24 06:00 10/19/24 06:00 10/19/24 06:00 Oxygen Delivery Method Room Air Weight: 208 lb 8.987 oz Body Mass Index (BMI) 32.7 Intake & Output: Intake and Output for Last 24 Hours 10/17/24 10/18/24 10/19/24 23:59 23:59 23:59 Intake Total 1380 / 1380 1120 / 1420 1100 / 1100 Output Total 1950 / 1950 675 / 675 375 / 375 Balance -570 / -570 445 / 745 725 / 725 Lab / Micro Data 10/17/24 06:00 10/17/24 06:00 Labs: Laboratory Results - last 24 hr 10/18/24 10:40: POC Glucose 214 H 10/18/24 16:35: POC Glucose 188 H 10/18/24 21:00: POC Glucose 192 H 10/19/24 06:16: POC Glucose 225 H Physical Exam Const alert Constitutional Narrative: Flat affect Mumbles at times and I have to tell him to speak up. General Appearance: cooperative HEENT Mouth: dry mucous membranes Resp clear to auscultation bilaterally Cardio regular rate, regular rhythm and no gallops Cardio Narrative: No ectopy GI normal to inspection, nondistended, normoactive bowel sounds, soft to palpation and non-tender GI Narrative: No guarding with palpation Extremity no calf tenderness General Extremity: Negative for edema Neuro Neuro Narrative: He is still flaccid on the R side in the arm and leg. He c/o some tingling in the RUE now. He can now raise both eyebrows and he is able to close the R eye tighter than at admission. He walked in the cheng with a hair-walker today and assist of 2. PT is advancing the R foot. Psych Psych Narrative: He is still anxious but, he is better than at admission Mood & Affect: anxious Assessment & Plan Assessment/Plan (1) Physical debility: (2) Acute CVA (cerebrovascular accident): (3) Hemiplegia affecting right dominant side: QUALIFIERS: Hemiplegia type: flaccid Hemiplegia etiology: late effect of cerebrovascular disease Cerebrovascular disease type: cerebral infarction Qualified Code(s): I69.351 - Hemiplegia and hemiparesis following cerebral infarction affecting right dominant side (4) Dysphagia: QUALIFIERS: Dysphagia type: oropharyngeal phase Qualified Code(s): R13.12 - Dysphagia, oropharyngeal phase (5) Dysarthria due to acute stroke: (6) Facial droop due to acute stroke: (7) Paresthesias: (8) Urine retention: (9) HTN (hypertension): QUALIFIERS: Hypertension type: primary hypertension Qualified Code(s): I10 - Essential (primary) hypertension (10) Hyperlipidemia: QUALIFIERS: Hyperlipidemia type: mixed hyperlipidemia Qualified Code(s): E78.2 - Mixed hyperlipidemia (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 Continue therapy 2. Add glipizide 5 mg p.o. twice daily and continue metformin. Would like to get him controlled with Glargine, Metformin and Glipizide if possible. 3. Increase glargine to 30 units nightly 4. Discontinue lispro 3 units with meals. Continue the sliding insulin scale but, enter a custom scale. 5. He had a BM every day for the past 3 days and they are soft........He is just perseverating on bowel function and desire for privacy. 6. Consider going up on Sertraline rtowards the end of the week if he continues to tolerate. Charges/Coding Visit Charges Inpatient E&M: 81786 Subs Hosp L1
[2024-10-19 12:05] LABS: Bedside Glucose 148 mg/dL (74-106)
[2024-10-19 14:38] VITALS: BMI 32.7
[2024-10-19] MEDS: glipiZIDE 5 MG Tablet PO (16:59)
[2024-10-19 17:35] LABS: Bedside Glucose 178 mg/dL (74-106)
[2024-10-19 18:00] VITALS: BP 131/70; PULSE 87; RESP 16; TEMP 36.4; O2SAT 95
[2024-10-19] MEDS: Atorvastatin Calcium 40 MG Tablet PO (21:28)
[2024-10-19 21:44] VITALS: BMI 32.7
[2024-10-19] MEDS: Zolpidem Tartrate 5 MG Tablet PO (22:52)
[2024-10-19 23:02] LABS: Bedside Glucose 108 mg/dL (74-106)
[2024-10-20 06:00] VITALS: BP 125/72; PULSE 82; RESP 16; TEMP 36.2; O2SAT 95
[2024-10-20] MEDS: busPIRone 5 MG Tablet PO ×3 (06:17→21:55)
[2024-10-20] MEDS: Enoxaparin 40 MG/0.4 ML Syringe SC (06:18)
[2024-10-20 06:47] LABS: Bedside Glucose 188 mg/dL (74-106)
[2024-10-20] MEDS: Aspirin E.C. 81 MG Tablet PO (07:58)
[2024-10-20] MEDS: metFORMIN HCl 1,000 MG Tablet 1000 MG PO ×2 (07:58→17:03)
[2024-10-20] MEDS: NYSTATIN 500,000 UNIT/5 ML UDC 500000 UNIT PO ×4 (07:58→21:55)
[2024-10-20] MEDS: glipiZIDE 5 MG Tablet PO ×2 (07:58→17:03)
[2024-10-20] MEDS: Insulin Lispro 100 UNIT/ML INSULN.PEN SC ×2 (07:58→12:12)
[2024-10-20] MEDS: Sertraline 50 MG Tablet PO (07:59)
[2024-10-20] MEDS: Clopidogrel Bisulfate 75 MG Tablet PO (07:59)
[2024-10-20] MEDS: Senna/Docusate Sodium 1 Tablet 2 TABLET PO ×2 (07:59→21:55)
[2024-10-20] MEDS: Fenofibrate 145 MG Tablet PO (07:59)
[2024-10-20] MEDS: Losartan Potassium 100 MG Tablet PO (07:59)
--- NOTE | 2024-10-20 08:35 | PCM.PROGNOTE ---
Subjective Subjective Afebrile VSS -blood pressure is at goal. Heart rate has ranged from 79-87 over the past 24 hours. Maintaining appropriate oxygen saturation on RA Oral intake - FOOD good FLUIDS he did better yesterday and took 1880 p.o. Discussed with nursing -refused glargine at at bedtime last night. He tells me he was afraid to take it because his blood sugar was 108 and he never sees it this low. The FBS today is 188. We discussed basal insulin with him and also went over his goals. FBS < 130 and PP's < 180. He is agreeable to taking the insulin tonight. Reviewed the THERAPY notes - He will have a swallowing study today. Medication list reviewed. Has been taking the Ambien that is ordered PRN every night since arrival on rehab. Tells me that his appetite is not good but, he is eating 75-100% of all his meals. Nils denies lightheadedness, vertigo, CP, SOB at rest, SOB with exertion, cough, nausea, vomiting, abd pain, diarrhea, night sweats, shaking chills, suprapubic pain, calf pain and ankle swelling. We discussed his bowel function. He still maintains he is constipated but, he has had a BM every day since arrival on rehab. They are soft. Denies muscle pain. He c/o fatigue. Objective Data Objective Data Vital Signs: Vital Signs Temp Pulse Resp BP Pulse Ox O2 Del Method 97.1 F L 82 16 125/72 H 95 Room Air 10/20/24 06:00 10/20/24 06:00 10/20/24 06:00 10/20/24 06:00 10/20/24 06:00 10/20/24 06:00 Oxygen Delivery Method Room Air Weight: 208 lb 8.987 oz Body Mass Index (BMI) 32.7 Intake & Output: Intake and Output for Last 24 Hours 10/18/24 10/19/24 10/20/24 23:59 23:59 23:59 Intake Total 1120 / 1420 1880 / 1880 390 / 390 Output Total 675 / 675 1075 / 1075 350 / 350 Balance 445 / 745 805 / 805 40 / 40 Lab / Micro Data 10/17/24 06:00 10/17/24 06:00 Labs: Laboratory Results - last 24 hr 10/19/24 11:41: POC Glucose 148 H 10/19/24 17:01: POC Glucose 178 H 10/19/24 21:08: POC Glucose 108 H 10/20/24 06:15: POC Glucose 188 H Physical Exam Const alert and no apparent distress Orientation / Consciousness: Negative for confused HEENT Mouth: dry mucous membranes Resp clear to auscultation bilaterally Cardio regular rate and regular rhythm GI normal to inspection, nondistended, normoactive bowel sounds and soft to palpation GI Narrative: No guarding with palpation Extremity General Extremity: Negative for edema Neuro Neuro Narrative: He can not lift the RLE off the bed but, he is able to move the leg side to side now. The RUE is still flaccid. Has tingling in the arm and leg on the right at times. Still with signifcant R facial droop. Has been biting his tongue. Psych Psych Narrative: Less anxious Assessment & Plan Assessment/Plan (1) Physical debility: (2) Acute CVA (cerebrovascular accident): (3) Hemiplegia affecting right dominant side: QUALIFIERS: Hemiplegia type: flaccid Hemiplegia etiology: late effect of cerebrovascular disease Cerebrovascular disease type: cerebral infarction Qualified Code(s): I69.351 - Hemiplegia and hemiparesis following cerebral infarction affecting right dominant side (4) Dysphagia: QUALIFIERS: Dysphagia type: oropharyngeal phase Qualified Code(s): R13.12 - Dysphagia, oropharyngeal phase (5) Dysarthria due to acute stroke: (6) Facial droop due to acute stroke: (7) Paresthesias: (8) Urine retention: (9) HTN (hypertension): QUALIFIERS: Hypertension type: primary hypertension Qualified Code(s): I10 - Essential (primary) hypertension (10) Hyperlipidemia: QUALIFIERS: Hyperlipidemia type: mixed hyperlipidemia Qualified Code(s): E78.2 - Mixed hyperlipidemia (11) Diabetes mellitus type 2 with complications: (12) Obstructive sleep apnea: (13) Dehydration: PLAN: fluid intake is improving. PLAN: Plan 1. Continue therapy 2. BS's are coming under better control. Decrease the Glargine at night to 10 units. 3. BP is at goal 4. Went over the goals for tx again with pt. BP < 130-80, HGBA1C consistently 7 or less and LDL < 70. 5. Continue the Sertraline and the Bupar. Plan on increasing the Sertraline to 100 mg daily on Saturday if no adverse SE's. May benefit from psychotherapy following DC from acute rehab. 6. Voiding trial in the AM. Recommended to him that he try Biotene for dry mouth. It does not have a bad taste and is available in a spray and gum. I left a for giovana Gallo and asked if she could purchase this for him. The artificial saliva we have on formulary tastes bad and makes him nauseated. Charges/Coding Visit Charges Inpatient E&M: 27318 Subs Hosp L1
--- NOTE | 2024-10-20 10:09 | SP.MBSS_ITS ---
Modified Barium Swallow Patient Information Study Date: 10/20/24 Study Time: 09:30 Direct Billable Minutes: 125 Total Minutes procedure & reportin Diagnosis: oropharyngeal dysphagia s/p CVA Referring Physician: Vero Ryder Reason for Referral: Nils Duarte is a 64 y/o male who presented to the emergency department at [facility] on 10/14/24 complaining of right facial droop and slurred speech. NIH at arrival was 4. Noncontrast CT brain was negative for acute process. He has a dye allergy so a CTA was not done. Instead he had an MRI and MRA. The MRI showed left thalamic and left centrum semiovale acute infarctions. Admission to acute inpatient rehab was recommended at discharge. He was transferred to the acute inpatient rehab unit at [facility] on 10/16/2024 for 3 hours of therapy daily to restore function/independent at or near his level prior to the recent stroke. 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 Per nursing staff, pt. has been coughing on thin liquids and c/o frequently biting his tongue while eating. Medical History: Colon polyps, Obesity (BMI 30.0-34.9), Alcohol use, Cigar smoker, HTN (hypertension), Hyperlipidemia, Diabetes mellitus type 2 with complications Current Diet Ordered: Regular/Thin Dentition: Natural Teeth Respiratory Status: Oxygenating on Room Air Penetration-Aspiration Scale Penetration-Aspiration Scale: OBJECTIVE ASSESSMENT OF SWALLOW FUNCTION (QUANTITATIVE ? PER TRIAL): PENETRATION / ASPIRATION SCALE (KENT): 1 = does not enter airway 2 = enters airway/above vocal folds/ejected 3 = enters airway/above vocal folds/not ejected 4 = enters airway/contacts vocal folds/ejected 5 = enters airway/contacts vocal folds/not ejected 6 = enters airway/below vocal folds/ejected 7 = enters airway/below vocal folds/not ejected despite effort 8 = enters airway/below vocal folds/no effort Penetration-Aspiration Scale Score Thin Liquid via teaspoon: Result: 1= does not enter airway Thin Liquid via teaspoon Trial 2: Result: 2= enter airway/above vocal folds/ejected Thin Liquid via small single sip: cup: Result: 1= does not enter airway Thin Liquid via single sip: straw: Result: 3= enters airways/above vocal folds/not ejected Thin Liquid via single sip: cup, cued to swallow hard & fast: Result: 1= does not enter airway Pudding: Result: 1= does not enter airway Cookie: Result: 1= does not enter airway Thin liquid - large sip x 2: Result: 8= enters airway/below vocal folds/no effort (spillage to the pyriforms w/ penetration from the pyriforms entering the laryngeal vestibule before/during swallow onset w/ silent aspiration of a trace amount, no penetration/aspiration of second liquid bolus) Thin Liquid via small single sip: cup Trial 2: Result: 2= enter airway/above vocal folds/ejected Thin Liquid via small single sip: cup Chin tuck: Result: 3= enters airways/above vocal folds/not ejected (chin tuck not effective to protect airway, increased post-prandial laryngeal vestibule contrast retention ) Thin Liquid via small single sip: cup Right head turn: Result: 1= does not enter airway Thin Liquid via small single sip: cup Right head turn Trial 2: Result: 1= does not enter airway Oral Phase Labial Seal: Escape beyond interlabial space; no extension beyond sidney border Tongue Control During Bolus Hold: Cohesive bolus between tongue to palatal seal Bolus Preparation/Mastication: Slow prolonged chewing/mashing with complete recollection Bolus Transport/Lingual Motion: Slowed tongue motion Oral Residue: Residue collection on oral structures Pharyngeal Phase Initiation of Pharyngeal Swallow: Bolus head at posterior laryngeal surgace of epiglottis Soft Palate Elevation: No bolus between soft palate and pharyngeal wall Laryngeal Elevation: Partial superior movement thyroid cart/partial apprx aryt- epig petiole Anterior Hyoid Excursion: Partial anterior movement Epiglottic Movement: Complete inversion Laryngeal Vestibule Closure at Height of Swallow: Incomplete; narrow column of air/contrast in laryngeal vestibule Pharyngeal Stripping Wave: Present - diminished Pharyngoesophageal Segment Opening: Complete distension and complete duration; no obstruction of flow Tongue Base Retraction: Wide column of contrast between tongue base & post. pharyngeal wall Pharyngeal Residue: Collection of residue within or on pharyngeal structures Esophageal Phase Esophageal Clearance: Esophageal retention Diagnosis/Impression Diagnosis: mild oropharyngeal dysphagia Impression: The oral phase is marked by... * mild anterior bolus leakage * prolonged mastication * slowed lingual motion for A-P bolus transportation * intermittent premature pharyngeal bolus entry w/ contrast reaching the posterior laryngeal surface of the epiglottis prior to swallow onset * post-prandial oral/tongue base residue retention The pharyngeal phase is marked by... * laryngeal vestibule penetration before/during the swallow from contrast that enters from the pyriforms * SILENT ASPIRATION occurred 1x w/ no outward response to contrast dropping below the vocal folds * small sips and single sips are better controlled that larger volume & sequential swallows * a chin tuck posture was not effective to improve airway closure and resulted in prandial penetration * a right head turn was effective to eliminate penetration/aspiration of thin liquids * reduced tongue base retraction w/ a wide column of contrast between the tongue base and posterior pharyngeal wall * diminished pharyngeal stripping wave w/ post prandial residue retention along the posterior pharyngeal wall * cued and spontaneous double swallows were effective to clear oropharyngeal residue * small C5-6 osteophyte w/ cricopharyngeal hypertrophy that does not impede bolus flow The esophageal phase is marked by... * contrast retention was noted below the PES in the medial and proximal esophagus w/out retrograde flow - consider GI referral Recommendations Diet: Regular Textures and Thin Liquids Compensatory Strategies: Small Bites, Small Sips, Multiple Swallows (double swallow to clear oropharyngeal residue), Right head turn when swallowing, Sitting upright and Remain sitting upright for 30 minutes after PO intake Supervision: Assist as needed Recommend Repeat Modified Barium Swallow: Yes Comment: A repeat MBSS is recommended in 2-4 weeks to assess progress w/ receipt of skilled dysphagia intervention and determine if compensatory strategy use can be discontinued. Pt is a silent aspirator. Comment: instruct w/ oropharyngeal strengthening exercises (effortful breath hold + effortful swallow, falsetto pitch jumps, vidhi, gargle, marina); reinforce compensatory swallowing strategy use w/ intake Recommended Referrals: GI Consult (see impression above) Education Completed: 1. Described result of evaluation. (images were reviewed w/ the patient following study conclusion to improve comprehension of deficits identified and the importance of compensatory strategy use (small sips, R head turn)) and 2. Pt understands evaluation & agrees with goals and treatment plan. Status Active ST Patient: Active Contact Information [facility] Speech Therapy:: Marga Flores M.A. ORDNANCE KEEPER Speech-Language Pathologist Thalia Novak [place], [place] [phone] [email or web address]
--- NOTE | 2024-10-20 11:03 | CASEMGMT ---
Social Work Pt requesting to complete advanced directives. SW to assist prior to DC as time allows. Amisha Heath [employer] MANAGER [employer]
[2024-10-20 11:38] LABS: Bedside Glucose 158 mg/dL (74-106)
[2024-10-20 14:45] VITALS: BMI 32.7
[2024-10-20 17:25] LABS: Bedside Glucose 142 mg/dL (74-106)
[2024-10-20 18:00] VITALS: BP 134/64; PULSE 82; RESP 16; TEMP 36.5; O2SAT 93
[2024-10-20 21:45] VITALS: PULSE 82; RESP 16; O2SAT 93; BMI 32.7
[2024-10-20] MEDS: Atorvastatin Calcium 40 MG Tablet PO (21:55)
[2024-10-20] MEDS: Insulin Glargine-YFGN 100 UNIT/ML Pen 10 UNIT SC (21:56)
[2024-10-20 23:10] LABS: Bedside Glucose 110 mg/dL (74-106)
[2024-10-20] MEDS: Zolpidem Tartrate 5 MG Tablet PO (23:56)
[2024-10-21 06:00] VITALS: BP 135/70; PULSE 77; RESP 17; TEMP 36.6; O2SAT 97
[2024-10-21] MEDS: busPIRone 5 MG Tablet PO ×3 (06:07→22:10)
[2024-10-21] MEDS: Enoxaparin 40 MG/0.4 ML Syringe SC (06:07)
[2024-10-21 06:21] VITALS: BMI 32.5
[2024-10-21 07:21] LABS: Bedside Glucose 214 mg/dL (74-106)
[2024-10-21] MEDS: Aspirin E.C. 81 MG Tablet PO (08:05)
[2024-10-21] MEDS: glipiZIDE 5 MG Tablet PO ×2 (08:05→17:50)
[2024-10-21] MEDS: Insulin Lispro 100 UNIT/ML INSULN.PEN SC (08:05)
[2024-10-21] MEDS: metFORMIN HCl 1,000 MG Tablet 1000 MG PO ×2 (08:05→17:50)
[2024-10-21] MEDS: NYSTATIN 500,000 UNIT/5 ML UDC 500000 UNIT PO ×4 (08:06→22:23)
[2024-10-21] MEDS: Clopidogrel Bisulfate 75 MG Tablet PO (08:06)
[2024-10-21] MEDS: Sertraline 50 MG Tablet PO (08:06)
[2024-10-21] MEDS: Senna/Docusate Sodium 1 Tablet 2 TABLET PO ×2 (08:06→22:10)
[2024-10-21] MEDS: Fenofibrate 145 MG Tablet PO (08:06)
[2024-10-21] MEDS: Losartan Potassium 100 MG Tablet PO (08:06)
[2024-10-21 08:12] VITALS: BP 124/61; PULSE 89
[2024-10-21 12:14] LABS: Bedside Glucose 110 mg/dL (74-106)
[2024-10-21 17:12] LABS: Bedside Glucose 140 mg/dL (74-106)
[2024-10-21 18:00] VITALS: BP 123/71; PULSE 85; RESP 18; TEMP 36.3; O2SAT 99
[2024-10-21 21:00] VITALS: PULSE 85; RESP 18; O2SAT 99; BMI 32.5
[2024-10-21] MEDS: Insulin Glargine-YFGN 100 UNIT/ML Pen 20 UNIT SC (22:20)
[2024-10-21] MEDS: Atorvastatin Calcium 40 MG Tablet PO (22:23)
[2024-10-21 22:47] LABS: Bedside Glucose 101 mg/dL (74-106)
[2024-10-21] MEDS: Zolpidem Tartrate 5 MG Tablet PO (23:47)
[2024-10-22 05:00] VITALS: BP 125/66; PULSE 83; RESP 17; TEMP 36.7; O2SAT 94
[2024-10-22] MEDS: busPIRone 5 MG Tablet PO ×3 (05:14→22:42)
[2024-10-22] MEDS: Enoxaparin 40 MG/0.4 ML Syringe SC (05:15)
[2024-10-22] MEDS: Insulin Lispro 100 UNIT/ML INSULN.PEN SC (06:23)
[2024-10-22] MEDS: glipiZIDE 5 MG Tablet PO ×2 (06:24→17:04)
[2024-10-22 07:24] LABS: Bedside Glucose 209 mg/dL (74-106)
[2024-10-22] MEDS: metFORMIN HCl 1,000 MG Tablet 1000 MG PO ×2 (08:12→17:04)
[2024-10-22] MEDS: Aspirin E.C. 81 MG Tablet PO (08:12)
[2024-10-22] MEDS: Sertraline 50 MG Tablet PO (08:13)
[2024-10-22] MEDS: Clopidogrel Bisulfate 75 MG Tablet PO (08:13)
[2024-10-22] MEDS: NYSTATIN 500,000 UNIT/5 ML UDC 500000 UNIT PO ×4 (08:13→22:41)
[2024-10-22] MEDS: Fenofibrate 145 MG Tablet PO (08:13)
[2024-10-22] MEDS: Senna/Docusate Sodium 1 Tablet 2 TABLET PO ×2 (08:13→22:41)
[2024-10-22] MEDS: Losartan Potassium 100 MG Tablet PO (08:13)
--- NOTE | 2024-10-22 09:23 | PCM.PROGNOTE ---
Subjective Subjective Afebrile VSS -blood pressure over the past 24 hours has ranged from 123/71 to 135/70. 135/78 yesterday at 0600 and today at 6 AM was 125/66. Heart rate is within normal limits. Maintaining appropriate oxygen saturation on RA Oral intake - FOOD good FLUIDS poor. Took only 940 cc total yesterday and had 850 out. The blood sugar record was reviewed. The at bedtime blood sugar was 101 and the fasting this morning was 209. He denies any night sweats or nightmares. Blood sugars are well-controlled other than the fasting blood sugar. No hypoglycemia. Discussed with nursing - no problems that need addressed. Slept well last night and is compliant with CPAP. Reviewed the THERAPY notes Medication list reviewed. Objective Data Objective Data Vital Signs: Vital Signs Temp Pulse Resp BP Pulse Ox O2 Del Method 98.0 F 83 17 125/66 H 94 Room Air 10/22/24 05:00 10/22/24 05:00 10/22/24 05:00 10/22/24 05:00 10/22/24 05:00 10/22/24 05:00 Oxygen Delivery Method Room Air Weight: 207 lb 4 oz Body Mass Index (BMI) 32.5 Intake & Output: Intake and Output for Last 24 Hours 10/20/24 10/21/24 10/22/24 23:59 23:59 23:59 Intake Total 520 / 520 940 / 940 300 / 300 Output Total 1125 / 1125 850 / 950 225 / 225 Balance -605 / -605 90 / -10 75 / 75 Lab / Micro Data 10/22/24 10:37 10/22/24 10:37 Labs: Laboratory Results - last 24 hr 10/21/24 11:56: POC Glucose 110 H 10/21/24 16:40: POC Glucose 140 H 10/21/24 22:19: POC Glucose 101 10/22/24 06:20: POC Glucose 209 H Physical Exam Const alert, oriented x3 and no apparent distress Constitutional Narrative: Speech is still slurred and some words are difficult to understand. Eyes PERRL and EOMs intact bilaterally Resp normal respiratory effort and clear to auscultation bilaterally Resp Narrative: No conversational dyspnea Effort and Inspection: Negative for tachypneic or respiratory distress Cardio regular rate, regular rhythm and no gallops Cardio Narrative: No ectopy GI normal to inspection, nondistended, normoactive bowel sounds, soft to palpation and non-tender GI Narrative: No guarding with palpation Extremity no calf tenderness Extremity Narrative: No edema in the lower extremities. Some edema of the right upper extremity secondary to immobility. General Extremity: Negative for edema Skin Rashes: no rashes Neuro Neuro Narrative: Is able to raise the R eyebrow now and can close the R$ eye tighter. Still with significant facial droop and slurred speech. No movement in the RUE but, he has more muscle tone than at admission. He was able to lift the R foot about and inch off the bed today. Increased tone in the R quad. Psych cooperative Psych Narrative: Less anxious. Making good eye contact. Assessment & Plan Assessment/Plan (1) Physical debility: (2) Acute CVA (cerebrovascular accident): (3) Hemiplegia affecting right dominant side: QUALIFIERS: Hemiplegia type: flaccid Hemiplegia etiology: late effect of cerebrovascular disease Cerebrovascular disease type: cerebral infarction Qualified Code(s): I69.351 - Hemiplegia and hemiparesis following cerebral infarction affecting right dominant side (4) Dysphagia: QUALIFIERS: Dysphagia type: oropharyngeal phase Qualified Code(s): R13.12 - Dysphagia, oropharyngeal phase (5) Dysarthria due to acute stroke: (6) Facial droop due to acute stroke: (7) Paresthesias: (8) Urine retention: (9) HTN (hypertension): QUALIFIERS: Hypertension type: primary hypertension Qualified Code(s): I10 - Essential (primary) hypertension (10) Hyperlipidemia: QUALIFIERS: Hyperlipidemia type: mixed hyperlipidemia Qualified Code(s): E78.2 - Mixed hyperlipidemia (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 Continue therapy 2. Check a CBC with differential and BMP today. 3. Encouraged increased fluid intake. 4. Check a 3 AM blood sugar tonight. 5. He requested a PVR be done last done because he did not feel like he was emptying his bladder. It was OK at 108. Will check a UA today. Charges/Coding Visit Charges Inpatient E&M: 61045 Subs Hosp L1
[2024-10-22 10:46] LABS: Absolute Lymphocyte Count 2.34 X10^3/uL (0.83-4.51); Basophil# 0.06 X10^3/uL; Basophil% 0.6 % (0-1); Hematocrit 44.4 % (40-54); Hemoglobin 15.1 g/dL (13.0-16.5); Lymphocyte # 2.34 X10^3/ul (0.83-4.51); Lymphocyte % 22.3 % (19-41); Mean Corpuscular Volume 91.2 fL (80-94); Mean Platelet Vol. 10.3 fl (6.2-12.0); Monocyte# 0.95 X10^3/uL; Monocyte% 9.1 % (0-10); NRBC Flagged by Analyzer 0 % (0-5); Neutrophil # 6.95 X10^3/uL (2.7-7.7); Neutrophil % 66.3 % (47-70); Platelet Count 319 K/mm3 (150-450); RBC Distribution Width CV 12.2 % (11.6-14.6); RBC Distribution Width SD 40.7 fl (35.1-43.9); Red Blood Count 4.87 M/mm3 (4.6-6.2); White Blood Count 10.5 K/mm3 (4.4-11.0)
[2024-10-22 11:44] LABS: Anion Gap 9 (5-15); BUN 15 mg/dL (7-18); Calcium,Total 9.5 mg/dL (8.5-10.1); Chloride 103 mmol/L (98-107); Creatinine, Serum 0.88 mg/dL (0.70-1.30); EST Glomerular Filtration Rate 92 mL/min (>60); Est Glom Filt Rate - Afr Amer 111 mL/min (>60); Estimated Creatinine Clearance 91.02 ml/min; Glucose 121 mg/dL (74-106); Potassium 3.6 mmol/L (3.5-5.1); Sodium Level 136 mmol/L (136-145)
[2024-10-22 11:53] LABS: Bedside Glucose 113 mg/dL (74-106)
--- NOTE | 2024-10-22 12:46 | CASEMGMT ---
Social Work IDT met with patient, sister and niece for Team meeting. Discussed patient's progress in PT/OT/ST/SN. Educated to [facility] insurance with NRD 10/26 and continued stay is not guaranteed with each review; not requiring an advanced notice for DC. Pt's goal is to return home, however, pt lives alone and family cannot provide physical assistance. Will ReTeam weekly. SW will follow for DC planning. KENDY WaltonW
[2024-10-22 14:26] LABS: Bacteria 0 SEEN /hpf (None Seen); Squamous Epithelial Cells - UA 0 SEEN /hpf (0-5)
[2024-10-22 14:54] LABS: Color, Urine Yellow (Yellow); Glucose, Dipstick 100 mg/dl (Normal); Ketone-Dipstick Negative (Negative); Leukocyte Esterase-Dipstick 25 /ul (Negative); Nitrite-Dipstick Negative (Negative); Occult Blood-Urine 10 /ul (Negative); Protein-Dipstick 30 mg/dl (Negative); Urine Bilirubin Dipstick Negative (Negative); Urine Clarity Clear (Clear); Urine Urobilinogen Normal (Normal)
[2024-10-22 15:31] LABS: Red Blood Cells-Urine 0-5 SEEN /hpf (0-5); White Blood Cells 0-5 SEEN /hpf (0-5)
[2024-10-22 15:32] LABS: Mucous, Urine 1+ /hpf (<or=2+)
[2024-10-22 15:46] VITALS: BMI 32.5
--- NOTE | 2024-10-22 16:41 | CHAPLAIN ---
Type of Pastoral Visit _x__ Initial Visit ___ Follow-up Visit ___ On-call Visit ___ General Patient Visit ___ Spiritual Assessment ___ Family Conference ___ Bereavement ___ Rapid Response ___ Code Blue ___ Other (describe below) Pastoral Care Referral From _x__ Patient _x__ Family ___ Nurse ___ Physician ___ Strategic Planner ___ Coffee Machine Technician ___ Other (describe below) Sacrament/Intervention _x__ Active listening ___ Anointing ___ Bahai ___ Bereavement ___ Communion ___ Bree exploration ___ _x__ Life review _x__ Prayer ___ Reconciliation ___ Sacrament of Sick _x__ Supportive presence ___ Wedding ___ Other (describe below) Pastoral Comments Very welcoming; some review of situation and concerns about recovery; family member was present but left during this visit; pt open to future visits and prayer support
--- NOTE | 2024-10-22 16:45 | CASEMGMT ---
Social Work SW completed advanced directives with pt. Original and copies provided to pt. Copies placed on chart. Amisha Heath CHILD WELFARE CONSULTANT [employer]
[2024-10-22 17:10] LABS: Bedside Glucose 144 mg/dL (74-106)
[2024-10-22 18:00] VITALS: BP 143/75; PULSE 81; RESP 17; TEMP 36.4; O2SAT 97
[2024-10-22 21:10] VITALS: PULSE 81; RESP 17; O2SAT 97; BMI 32.5
[2024-10-22] MEDS: Atorvastatin Calcium 40 MG Tablet PO (22:41)
[2024-10-22] MEDS: Insulin Glargine-YFGN 100 UNIT/ML Pen 20 UNIT SC (22:42)
[2024-10-22 23:03] LABS: Bedside Glucose 114 mg/dL (74-106)
[2024-10-22] MEDS: Zolpidem Tartrate 5 MG Tablet PO (23:25)
--- NOTE | 2024-10-22 23:50 | NURSING ---
2110 pt had taken nystatin swish and swallow and then started coughing, pt reported that he felt like something was in the middle of his chest. pt continue to have a harsh cough and did eventually bring up some thick white foamy mucus. 02 at 2/m was placed on for pt comfort and rn was called to assess pt for aspiration
--- NOTE | 2024-10-22 23:56 | NURSING ---
2110 pt had just finished taking his nystatin swish and swallow and started harshly coughing, pt stated that he felt like he had something in the middle of his chest. pt continued to cough and did eventually brought up some white thick foamy mucus. 02 a 2l/m was placed on pt for comfort, and rn came in to assess pt for aspiration. sp02 was 97% and heart rate was 120 at this time. lungs sounds remain clear to auscultation. pt remained in high fowlers with 02 on. 2299 pt reports that he is feeling better and had removed the 02 off , sp02 was 96% o ra and ap was 85 at this time. lungs sounds remain clear with auscultation. pt continues to clear throat. 2319 pt requesting to take ambien and put on c-pap for the night. pt continues to clear throat secretions, but states that he is better. pt enocuraged to keep hob up at least 30 degrees for now pt acknowledged
[2024-10-23 03:25] LABS: Bedside Glucose 159 mg/dL (74-106)
[2024-10-23 06:00] VITALS: BP 119/59; PULSE 81; RESP 16; TEMP 36.9; O2SAT 97
[2024-10-23] MEDS: Enoxaparin 40 MG/0.4 ML Syringe SC (06:15)
[2024-10-23] MEDS: glipiZIDE 5 MG Tablet PO ×2 (06:16→17:21)
[2024-10-23] MEDS: busPIRone 5 MG Tablet PO ×3 (06:16→21:15)
[2024-10-23] MEDS: Insulin Lispro 100 UNIT/ML INSULN.PEN SC (06:16)
[2024-10-23 06:43] LABS: Bedside Glucose 205 mg/dL (74-106)
[2024-10-23] MEDS: Aspirin E.C. 81 MG Tablet PO (08:19)
[2024-10-23] MEDS: Clopidogrel Bisulfate 75 MG Tablet PO (08:19)
[2024-10-23] MEDS: Senna/Docusate Sodium 1 Tablet 2 TABLET PO ×2 (08:19→21:15)
[2024-10-23] MEDS: metFORMIN HCl 1,000 MG Tablet 1000 MG PO ×2 (08:19→17:21)
[2024-10-23] MEDS: Losartan Potassium 100 MG Tablet PO (08:19)
[2024-10-23] MEDS: Sertraline 100 MG Tablet PO (08:20)
[2024-10-23] MEDS: Fenofibrate 145 MG Tablet PO (08:20)
[2024-10-23 08:54] VITALS: PULSE 80; RESP 16
[2024-10-23 11:27] LABS: Bedside Glucose 89 mg/dL (74-106)
[2024-10-23 17:00] VITALS: BMI 32.5
[2024-10-23 17:25] LABS: Bedside Glucose 131 mg/dL (74-106)
[2024-10-23 18:00] VITALS: BP 133/69; PULSE 78; RESP 16; TEMP 36.6; O2SAT 95
[2024-10-23] MEDS: Atorvastatin Calcium 40 MG Tablet PO (21:14)
[2024-10-23] MEDS: Insulin Glargine-YFGN 100 UNIT/ML Pen 20 UNIT SC (21:36)
[2024-10-23 21:59] VITALS: BMI 32.5
[2024-10-23 22:02] LABS: Bedside Glucose 109 mg/dL (74-106)
[2024-10-23] MEDS: Zolpidem Tartrate 5 MG Tablet PO (23:30)
[2024-10-24 03:33] LABS: Bedside Glucose 129 mg/dL (74-106)
[2024-10-24] MEDS: busPIRone 5 MG Tablet PO ×3 (05:59→22:02)
[2024-10-24] MEDS: Enoxaparin 40 MG/0.4 ML Syringe SC (05:59)
[2024-10-24 06:00] VITALS: BP 108/56; PULSE 78; RESP 18; TEMP 36.6; O2SAT 98
[2024-10-24] MEDS: glipiZIDE 5 MG Tablet PO ×2 (06:00→15:31)
[2024-10-24] MEDS: Insulin Lispro 100 UNIT/ML INSULN.PEN SC (06:43)
[2024-10-24 07:13] LABS: Bedside Glucose 172 mg/dL (74-106)
[2024-10-24] MEDS: Sertraline 100 MG Tablet PO (09:29)
[2024-10-24] MEDS: metFORMIN HCl 1,000 MG Tablet 1000 MG PO ×2 (09:29→16:56)
[2024-10-24] MEDS: Clopidogrel Bisulfate 75 MG Tablet PO (09:29)
[2024-10-24] MEDS: Senna/Docusate Sodium 1 Tablet 2 TABLET PO ×2 (09:30→22:04)
[2024-10-24] MEDS: Fenofibrate 145 MG Tablet PO (09:30)
[2024-10-24] MEDS: Losartan Potassium 100 MG Tablet PO (09:30)
[2024-10-24] MEDS: Aspirin E.C. 81 MG Tablet PO (09:30)
[2024-10-24 11:59] LABS: Bedside Glucose 101 mg/dL (74-106)
[2024-10-24 15:34] VITALS: BMI 32.5
[2024-10-24 17:08] LABS: Bedside Glucose 117 mg/dL (74-106)
[2024-10-24 18:00] VITALS: BP 114/58; PULSE 75; RESP 16; TEMP 37.1; O2SAT 94
[2024-10-24] MEDS: Insulin Glargine-YFGN 100 UNIT/ML Pen 26 UNIT SC (22:02)
[2024-10-24] MEDS: Atorvastatin Calcium 40 MG Tablet PO (22:03)
[2024-10-24 22:29] LABS: Bedside Glucose 121 mg/dL (74-106)
[2024-10-25] MEDS: Zolpidem Tartrate 5 MG Tablet PO ×2 (00:15→23:13)
[2024-10-25 00:41] VITALS: BMI 32.5
[2024-10-25] MEDS: Enoxaparin 40 MG/0.4 ML Syringe SC (06:28)
[2024-10-25] MEDS: busPIRone 5 MG Tablet PO ×3 (06:28→21:51)
[2024-10-25 06:36] VITALS: BP 130/62; PULSE 79; RESP 16; TEMP 36.3; O2SAT 95
[2024-10-25 06:50] LABS: Bedside Glucose 170 mg/dL (74-106)
[2024-10-25] MEDS: Senna/Docusate Sodium 1 Tablet 2 TABLET PO ×2 (07:46→21:52)
[2024-10-25] MEDS: Clopidogrel Bisulfate 75 MG Tablet PO (07:46)
[2024-10-25] MEDS: glipiZIDE 5 MG Tablet PO ×2 (07:46→17:10)
[2024-10-25] MEDS: Fenofibrate 145 MG Tablet PO (07:46)
[2024-10-25] MEDS: Losartan Potassium 100 MG Tablet PO (07:46)
[2024-10-25] MEDS: Aspirin E.C. 81 MG Tablet PO (07:46)
[2024-10-25] MEDS: metFORMIN HCl 1,000 MG Tablet 1000 MG PO ×2 (07:46→17:10)
[2024-10-25] MEDS: Insulin Lispro 100 UNIT/ML INSULN.PEN SC (07:47)
[2024-10-25] MEDS: Sertraline 100 MG Tablet PO (07:47)
[2024-10-25 11:08] LABS: Bedside Glucose 114 mg/dL (74-106)
[2024-10-25 14:27] VITALS: BMI 32.5
[2024-10-25 17:26] VITALS: BP 135/51; PULSE 88; RESP 16; TEMP 36.8; O2SAT 94
[2024-10-25 17:32] LABS: Bedside Glucose 131 mg/dL (74-106)
[2024-10-25] MEDS: Insulin Glargine-YFGN 100 UNIT/ML Pen 26 UNIT SC (21:51)
[2024-10-25] MEDS: Atorvastatin Calcium 40 MG Tablet PO (21:52)
[2024-10-25 22:20] LABS: Bedside Glucose 93 mg/dL (74-106)
--- NOTE | 2024-10-25 22:33 | NURSING ---
Blood sugar 93. Asymptomatic. Snack given.
[2024-10-26 02:31] VITALS: BMI 32.5
[2024-10-26] MEDS: busPIRone 5 MG Tablet PO ×3 (05:14→22:08)
[2024-10-26] MEDS: Enoxaparin 40 MG/0.4 ML Syringe SC (05:14)
[2024-10-26 05:17] VITALS: BP 104/55; PULSE 69; RESP 16; TEMP 36.6; O2SAT 98
[2024-10-26 07:13] LABS: Bedside Glucose 164 mg/dL (74-106)
[2024-10-26] MEDS: Insulin Lispro 100 UNIT/ML INSULN.PEN SC (07:58)
[2024-10-26] MEDS: Losartan Potassium 100 MG Tablet PO (07:59)
[2024-10-26] MEDS: Aspirin E.C. 81 MG Tablet PO (07:59)
[2024-10-26] MEDS: Sertraline 100 MG Tablet PO (07:59)
[2024-10-26] MEDS: metFORMIN HCl 1,000 MG Tablet 1000 MG PO ×2 (07:59→17:08)
[2024-10-26] MEDS: Fenofibrate 145 MG Tablet PO (07:59)
[2024-10-26] MEDS: Clopidogrel Bisulfate 75 MG Tablet PO (07:59)
[2024-10-26] MEDS: glipiZIDE 5 MG Tablet PO (07:59)
--- NOTE | 2024-10-26 09:17 | PCM.PROGNOTE ---
Subjective Subjective Afebrile VSS - Maintaining appropriate oxygen saturation on RA Oral intake - FOOD good FLUIDS good The blood sugar record was reviewed. Blood sugars are well-controlled with the exception of the fasting blood sugar. 3 AM blood sugar last Saturday was 159. We have been gradually increasing the glargine at at bedtime to control the a.m. sugar and it was 164 today. the Hs sugar was 93 last night and he was given 2 pkgs of [place]. Discussed with nursing - no problems that need addressed Reviewed the THERAPY notes Medication list reviewed. Tolerating the increase in sertraline to 100 mg with no complaints. Sleeping well at night. Good appetite. Tells me his anxiety is doing better. He gets anxious most often when he is alone in his room for more than an hour at a time. Denies headache, lightheadedness, palpitations, chest pain, shortness of breath, cough, nausea/vomiting, dysuria and calf tenderness. Objective Data Objective Data Vital Signs: Vital Signs Temp Pulse Resp BP Pulse Ox O2 Del Method 97.9 F 69 16 104/55 L 98 Room Air 10/26/24 05:17 10/26/24 05:17 10/26/24 05:17 10/26/24 05:17 10/26/24 05:17 10/26/24 05:17 Oxygen Delivery Method Room Air Weight: 207 lb 4 oz Body Mass Index (BMI) 32.5 Intake & Output: Intake and Output for Last 24 Hours 10/24/24 10/25/24 10/26/24 23:59 23:59 23:59 Intake Total 1300 / 1900 2710 / 2710 220 / 220 Output Total 1925 / 1925 1500 / 1500 75 / 75 Balance -625 / -25 1210 / 1210 145 / 145 Lab / Micro Data 10/22/24 10:37 10/22/24 10:37 Labs: Laboratory Results - last 24 hr 10/25/24 10:31: POC Glucose 114 H 10/25/24 17:09: POC Glucose 131 H 10/25/24 21:50: POC Glucose 93 10/26/24 06:54: POC Glucose 164 H Physical Exam Const alert, oriented x3 and no apparent distress Constitutional Narrative: Speech is still slurred and some words are difficult to understand. Eyes PERRL and EOMs intact bilaterally Resp normal respiratory effort and clear to auscultation bilaterally Resp Narrative: No conversational dyspnea Effort and Inspection: Negative for tachypneic or respiratory distress Cardio regular rate, regular rhythm and no gallops Cardio Narrative: No ectopy GI normal to inspection, nondistended, normoactive bowel sounds, soft to palpation and non-tender GI Narrative: No guarding with palpation Extremity no calf tenderness Extremity Narrative: No edema in the lower extremities. Some edema of the right upper extremity secondary to immobility. General Extremity: Negative for edema Skin Rashes: no rashes Neuro Neuro Narrative: Is able to raise the R eyebrow now and can close the R$ eye tighter. Still with significant facial droop and slurred speech. No movement in the RUE but, he has more muscle tone than at admission. He was able to lift the R foot about and inch off the bed today. Increased tone in the R quad. Psych cooperative Psych Narrative: Less anxious. Making good eye contact. Assessment & Plan Assessment/Plan (1) Physical debility: (2) Acute CVA (cerebrovascular accident): (3) Hemiplegia affecting right dominant side: QUALIFIERS: Hemiplegia type: flaccid Hemiplegia etiology: late effect of cerebrovascular disease Cerebrovascular disease type: cerebral infarction Qualified Code(s): I69.351 - Hemiplegia and hemiparesis following cerebral infarction affecting right dominant side (4) Dysphagia: QUALIFIERS: Dysphagia type: oropharyngeal phase Qualified Code(s): R13.12 - Dysphagia, oropharyngeal phase (5) Dysarthria due to acute stroke: (6) Facial droop due to acute stroke: (7) Paresthesias: (8) Urine retention: (9) HTN (hypertension): QUALIFIERS: Hypertension type: primary hypertension Qualified Code(s): I10 - Essential (primary) hypertension (10) Hyperlipidemia: QUALIFIERS: Hyperlipidemia type: mixed hyperlipidemia Qualified Code(s): E78.2 - Mixed hyperlipidemia (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 Continue therapy 2. Increase the glargine to 28 units nightly. Would like to see the fasting blood sugar less than 130. 3. Reminded nursing that 93 is a normal blood sugar and he should not be getting cookies at bedtime for a normal BS 4. Decrease the Glipizide to 2.5 mg BID. 5. DC the SSI Charges/Coding Visit Charges Inpatient E&M: 33727 Subs Hosp L1
[2024-10-26 11:42] LABS: Bedside Glucose 59 mg/dL (74-106)
[2024-10-26 12:04] LABS: Bedside Glucose 114 mg/dL (74-106)
[2024-10-26 12:42] VITALS: BMI 32.5
[2024-10-26 17:04] LABS: Bedside Glucose 120 mg/dL (74-106)
[2024-10-26] MEDS: glipiZIDE 5 MG Tablet 2.5 MG PO (17:08)
[2024-10-26 18:00] VITALS: BP 112/59; PULSE 78; RESP 14; TEMP 36.6; O2SAT 93
[2024-10-26] MEDS: Insulin Glargine-YFGN 100 UNIT/ML Pen 28 UNIT SC (22:07)
[2024-10-26] MEDS: Senna/Docusate Sodium 1 Tablet 2 TABLET PO (22:09)
[2024-10-26] MEDS: Atorvastatin Calcium 40 MG Tablet PO (22:09)
[2024-10-26 22:31] LABS: Bedside Glucose 123 mg/dL (74-106)
[2024-10-27] MEDS: Zolpidem Tartrate 5 MG Tablet PO ×2 (00:09→22:39)
[2024-10-27 04:23] VITALS: BMI 32.5
[2024-10-27] MEDS: Enoxaparin 40 MG/0.4 ML Syringe SC (05:26)
[2024-10-27] MEDS: busPIRone 5 MG Tablet PO ×3 (05:26→22:39)
[2024-10-27 06:00] VITALS: BP 127/64; PULSE 76; RESP 17; TEMP 36.5; O2SAT 94
[2024-10-27 06:49] LABS: Bedside Glucose 178 mg/dL (74-106)
[2024-10-27] MEDS: Fenofibrate 145 MG Tablet PO (07:35)
[2024-10-27] MEDS: metFORMIN HCl 1,000 MG Tablet 1000 MG PO ×2 (07:35→16:43)
[2024-10-27] MEDS: glipiZIDE 5 MG Tablet 2.5 MG PO ×2 (07:35→16:43)
[2024-10-27] MEDS: Clopidogrel Bisulfate 75 MG Tablet PO (07:35)
[2024-10-27] MEDS: Aspirin E.C. 81 MG Tablet PO (07:35)
[2024-10-27] MEDS: Losartan Potassium 100 MG Tablet PO (07:35)
[2024-10-27] MEDS: Senna/Docusate Sodium 1 Tablet 2 TABLET PO ×2 (07:35→22:39)
[2024-10-27] MEDS: Sertraline 100 MG Tablet PO (07:36)
[2024-10-27 11:18] VITALS: BMI 32.5
[2024-10-27 11:30] LABS: Bedside Glucose 81 mg/dL (74-106)
--- NOTE | 2024-10-27 14:25 | PCM.PROGNOTE ---
Subjective Subjective Afebrile VSS -blood pressure is at goal. Heart rate is within normal limits. Maintaining appropriate oxygen saturation on RA Oral intake - FOOD good FLUIDS good Blood sugar record was reviewed. The at bedtime blood sugar was 123. FBS today was 178. Blood sugar at lunch was 81 but he only ate 50 to 74% of his breakfast. Discussed with nursing - no problems that need addressed Reviewed the THERAPY notes Medication list reviewed. Denies YOON, lightheadedness, CP, SOB, myalgia, N/V/heart burn, dysuria. Objective Data Objective Data Vital Signs: Vital Signs Temp Pulse Resp BP Pulse Ox O2 Del Method 97.7 F L 76 17 127/64 H 94 Room Air 10/27/24 06:00 10/27/24 06:00 10/27/24 06:00 10/27/24 06:00 10/27/24 06:00 10/27/24 06:00 Oxygen Delivery Method Room Air Weight: 207 lb 4 oz Body Mass Index (BMI) 32.5 Intake & Output: Intake and Output for Last 24 Hours 10/25/24 10/26/24 10/27/24 23:59 23:59 23:59 Intake Total 2710 / 2710 1782 / 1782 1122 / 1122 Output Total 1500 / 1500 1200 / 1200 525 / 525 Balance 1210 / 1210 582 / 582 597 / 597 Lab / Micro Data 10/22/24 10:37 10/22/24 10:37 Labs: Laboratory Results - last 24 hr 10/26/24 16:34: POC Glucose 120 H 10/26/24 22:06: POC Glucose 123 H 10/27/24 06:29: POC Glucose 178 H 10/27/24 11:09: POC Glucose 81 Physical Exam Const alert and oriented x3 General Appearance: cooperative Resp normal respiratory effort and clear to auscultation bilaterally Effort and Inspection: Negative for tachypneic Cardio Cardio Narrative: Always in a regular rhythm when I examine him. No ectopy. GI normal to inspection, nondistended, normoactive bowel sounds, soft to palpation and non-tender Extremity no calf tenderness Skin Rashes: no rashes Assessment & Plan Assessment/Plan (1) Physical debility: (2) Acute CVA (cerebrovascular accident): (3) Hemiplegia affecting right dominant side: QUALIFIERS: Hemiplegia type: flaccid Hemiplegia etiology: late effect of cerebrovascular disease Cerebrovascular disease type: cerebral infarction Qualified Code(s): I69.351 - Hemiplegia and hemiparesis following cerebral infarction affecting right dominant side (4) Dysphagia: QUALIFIERS: Dysphagia type: oropharyngeal phase Qualified Code(s): R13.12 - Dysphagia, oropharyngeal phase (5) Dysarthria due to acute stroke: (6) Facial droop due to acute stroke: (7) Paresthesias: (8) Urine retention: (9) HTN (hypertension): QUALIFIERS: Hypertension type: primary hypertension Qualified Code(s): I10 - Essential (primary) hypertension (10) Hyperlipidemia: QUALIFIERS: Hyperlipidemia type: mixed hyperlipidemia Qualified Code(s): E78.2 - Mixed hyperlipidemia (11) Diabetes mellitus type 2 with complications: (12) Obstructive sleep apnea: (13) Insomnia: QUALIFIERS: Insomnia type: unspecified Qualified Code(s): G47.00 - Insomnia, unspecified (14) Anxiety and depression: PLAN: Plan 1. Continue therapy 2. Discontinue glipizide in the a.m. but continue 2.5 mg with supper. continue the glargine at HS.....no change to the dose today. 3 AM BS was not low. I suspect he snacks at night in his room. 3. will need to teach him how to administer insulin with a pen prior to DC. 4. COntinue the Remeron and Buspar. Charges/Coding Visit Charges Inpatient E&M: 52216 Subs Hosp L1
[2024-10-27 16:57] LABS: Bedside Glucose 122 mg/dL (74-106)
[2024-10-27 17:26] VITALS: BP 130/73; PULSE 79; RESP 15; TEMP 36.6; O2SAT 94
[2024-10-27] MEDS: Atorvastatin Calcium 40 MG Tablet PO (22:39)
[2024-10-27] MEDS: Insulin Glargine-YFGN 100 UNIT/ML Pen 28 UNIT SC (23:17)
[2024-10-27 23:36] LABS: Bedside Glucose 101 mg/dL (74-106)
[2024-10-28 03:41] VITALS: BMI 32.5
[2024-10-28] MEDS: Enoxaparin 40 MG/0.4 ML Syringe SC (06:18)
[2024-10-28] MEDS: busPIRone 5 MG Tablet PO ×3 (06:18→20:36)
[2024-10-28 06:21] VITALS: BP 139/59; PULSE 77; RESP 16; TEMP 36.6; O2SAT 94; BMI 32.3
[2024-10-28 06:46] LABS: Bedside Glucose 146 mg/dL (74-106)
[2024-10-28] MEDS: Fenofibrate 145 MG Tablet PO (08:02)
[2024-10-28] MEDS: Senna/Docusate Sodium 1 Tablet 2 TABLET PO ×2 (08:02→20:37)
[2024-10-28] MEDS: Sertraline 100 MG Tablet PO (08:02)
[2024-10-28] MEDS: Losartan Potassium 100 MG Tablet PO (08:03)
[2024-10-28] MEDS: Aspirin E.C. 81 MG Tablet PO (08:03)
[2024-10-28] MEDS: metFORMIN HCl 1,000 MG Tablet 1000 MG PO ×2 (08:03→17:10)
[2024-10-28 11:19] LABS: Bedside Glucose 137 mg/dL (74-106)
[2024-10-28] MEDS: Clopidogrel Bisulfate 75 MG Tablet PO (11:24)
[2024-10-28 16:30] LABS: Bedside Glucose 116 mg/dL (74-106)
[2024-10-28 17:00] VITALS: BMI 32.3
[2024-10-28] MEDS: glipiZIDE 5 MG Tablet 2.5 MG PO (17:10)
[2024-10-28 18:00] VITALS: BP 139/69; PULSE 76; RESP 16; TEMP 36.8; O2SAT 94
[2024-10-28] MEDS: Atorvastatin Calcium 40 MG Tablet PO (20:37)
[2024-10-28 20:40] VITALS: BMI 32.3
[2024-10-28] MEDS: Insulin Glargine-YFGN 100 UNIT/ML Pen 28 UNIT SC (20:42)
[2024-10-28 21:02] LABS: Bedside Glucose 103 mg/dL (74-106)
[2024-10-28 21:58] VITALS: PULSE 76
[2024-10-28] MEDS: Zolpidem Tartrate 5 MG Tablet PO (22:37)
[2024-10-29] MEDS: Enoxaparin 40 MG/0.4 ML Syringe SC (05:29)
[2024-10-29] MEDS: busPIRone 5 MG Tablet PO ×2 (05:29→14:19)
[2024-10-29 05:44] VITALS: BP 108/48; PULSE 72; RESP 16; TEMP 36.3; O2SAT 98
[2024-10-29 06:33] LABS: Bedside Glucose 144 mg/dL (74-106)
[2024-10-29] MEDS: Fenofibrate 145 MG Tablet PO (09:00)
[2024-10-29] MEDS: Losartan Potassium 100 MG Tablet PO (09:01)
[2024-10-29] MEDS: Aspirin E.C. 81 MG Tablet PO (09:01)
[2024-10-29] MEDS: Clopidogrel Bisulfate 75 MG Tablet PO (09:01)
[2024-10-29] MEDS: metFORMIN HCl 1,000 MG Tablet 1000 MG PO ×2 (09:01→16:58)
--- NOTE | 2024-10-29 10:57 | PN_ITS ---
Subjective Subjective Nils was seen on team rounds today. his sister and niece were present in the room. All questions were answered to their satisfaction. Afebrile VSS -blood pressure over the past 48 hours has ranged from 108/48 to 139/69. Heart rate is within normal limits. Maintaining appropriate oxygen saturation on RA Oral intake - FOOD good FLUIDS fair to good.....has fallen off again the past few days. The blood sugar record was reviewed. Fasting blood sugar this morning was 144 and the at bedtime blood sugar was 103. Blood sugars are well-controlled now. No hypoglycemia. Discussed with nursing - no problems that need addressed Reviewed the THERAPY notes Medication list reviewed. Having some back pain when doing therapy......goes away when therapy is finished. Denies need for increased pain medication. Has no even had to take the tylenol that is ordered PRN. Tells me that he is not sleeping well. He was doing good with Ambien 5 mg. Now tells me that he awakens at about 2 - 2:30 and then it takes a few hours to go back to sleep. He had this problem at home prior to the recent CVA. Tells me that his anxiety is definitely better. Denies N/V/abd pain and abd cramping. Tolerating Buspar and Zoloft with no adverse drug reactions. He denies cephalgia, lightheadedness, vertigo, chest pain, palpitations, shortness of breath, dysuria and calf tenderness. Objective Data Objective Data Vital Signs: Vital Signs Temp Pulse Resp BP Pulse Ox O2 Del Method 97.4 F L 72 16 108/48 L 98 CPAP 10/29/24 05:44 10/29/24 05:44 10/29/24 05:44 10/29/24 05:44 10/29/24 05:44 10/29/24 05:44 Oxygen Delivery Method CPAP Weight: 205 lb 14.588 oz Body Mass Index (BMI) 32.3 Intake & Output: Intake and Output for Last 24 Hours 10/27/24 10/28/24 10/29/24 23:59 23:59 23:59 Intake Total 1344 / 1344 1030 / 1280 650 / 650 Output Total 825 / 1125 2200 / 2400 500 / 500 Balance 519 / 219 -1170 / -1120 150 / 150 Lab / Micro Data 10/22/24 10:37 10/22/24 10:37 Labs: Laboratory Results - last 24 hr 10/28/24 11:01: POC Glucose 137 H 10/28/24 16:12: POC Glucose 116 H 10/28/24 20:41: POC Glucose 103 10/29/24 06:08: POC Glucose 144 H Physical Exam Const alert, oriented x3 and no apparent distress Constitutional Narrative: Speech is still slurred. Resp normal respiratory effort and clear to auscultation bilaterally Resp Narrative: No conversational dyspnea Effort and Inspection: Negative for tachypneic Cardio regular rate, regular rhythm, no murmurs, no rub and no gallops Cardio Narrative: No ectopy GI normal to inspection, nondistended, normoactive bowel sounds, soft to palpation and non-tender GI Narrative: No guarding with palpation Extremity no calf tenderness Extremity Narrative: He has mild edema in the right hand secondary to immobility. General Extremity: edema Skin Rashes: no rashes Neuro Neuro Narrative: Calm. He still has a facial droop but, it is improving and speech is more intelligible. The R eye has some lid lag but, better than at admission to rehab. OT tells me that he moved the RUE side to side when lying on the table but, he is not able to do this for me........may be fatigued from PT and OT today. He has been moving his right foot forward without assistance until he fatigues and then he needs some assistance from the physical therapist. He was able to complete the tug test recently. He was not able to do this at admission. Psych Psych Narrative: Making good eye contact. Engaged. Focused. Does not seem as anxious as he was at admission to rehab. Good appetite and intake now. Very motivated to get better. Recognizes that he will likely not be able to go straight home at discharge from acute rehab and will likely need shelter for additional therapy. Making good progress. Assessment & Plan Assessment/Plan (1) Physical debility: (2) Acute CVA (cerebrovascular accident): (3) Hemiplegia affecting right dominant side: QUALIFIERS: Hemiplegia type: flaccid Hemiplegia etiology: late effect of cerebrovascular disease Cerebrovascular disease type: cerebral infarction Qualified Code(s): I69.351 - Hemiplegia and hemiparesis following cerebral infarction affecting right dominant side (4) Dysphagia: QUALIFIERS: Dysphagia type: oropharyngeal phase Qualified Code(s): R13.12 - Dysphagia, oropharyngeal phase (5) Dysarthria due to acute stroke: (6) Facial droop due to acute stroke: (7) Paresthesias: (8) Urine retention: (9) HTN (hypertension): QUALIFIERS: Hypertension type: primary hypertension Qualified Code(s): I10 - Essential (primary) hypertension (10) Hyperlipidemia: QUALIFIERS: Hyperlipidemia type: mixed hyperlipidemia Qualified Code(s): E78.2 - Mixed hyperlipidemia (11) Diabetes mellitus type 2 with complications: (12) Obstructive sleep apnea: (13) Dehydration: (14) Insomnia: QUALIFIERS: Insomnia type: unspecified Qualified Code(s): G47.00 - Insomnia, unspecified (15) Anxiety and depression: PLAN: Plan 1. Continue therapy 2. Increase the Ambien to 10 mg p.o. nightly. Increase the BuSpar to 5 mg twice daily and 10 mg prior to bedtime. 3. Decrease the Accu-Cheks to twice daily since the blood sugars are now very well-controlled with no hypoglycemia 4. Continue dual antiplatelet agents until 11/04/2024. 5. Recommend psychotherapy at discharge as he has chronically had an anxiety and insomnia and now he has a disability that he is having difficulty dealing with. He may also have a prolem with alcohol overuse. Charges/Coding Visit Charges Inpatient E&M: 57404 Subs Hosp L2
[2024-10-29] MEDS: Sertraline 100 MG Tablet PO (12:26)
[2024-10-29 13:08] VITALS: BMI 32.3
--- NOTE | 2024-10-29 13:12 | CASEMGMT ---
Social Work IDT met with patient, sister and niece for Team meeting. Discussed patient's progress in PT/OT/ST/SN. Educated to [facility] insurance with NRD 11/02 and continued stay is not guaranteed with each review. SW acknowledged pt's progress, however, broached topic of SNF at DC if insurance does not allow time needed for recover to DC home at [facility]. Pt and family very realistic. SW offered to provide list of INN SNFs that include quality and resource data via [employer] Guide. Pt/family accepting. SW printed list. Will ReTeam weekly. SW will continue to follow. Amisha Heath ATTORNEY LAWYER FRETTED INSTRUMENTS INSPECTOR
[2024-10-29 16:41] LABS: Bedside Glucose 130 mg/dL (74-106)
[2024-10-29] MEDS: glipiZIDE 5 MG Tablet 2.5 MG PO (16:58)
[2024-10-29 17:54] VITALS: BP 110/52; PULSE 76; RESP 17; TEMP 36.5; O2SAT 98
[2024-10-29] MEDS: Insulin Glargine-YFGN 100 UNIT/ML Pen 28 UNIT SC (20:46)
[2024-10-29] MEDS: busPIRone 5 MG Tablet 10 MG PO (20:47)
[2024-10-29] MEDS: Atorvastatin Calcium 40 MG Tablet PO (20:48)
[2024-10-29] MEDS: Senna/Docusate Sodium 1 Tablet 2 TABLET PO (20:49)
[2024-10-29 22:09] VITALS: RESP 16
[2024-10-29] MEDS: Zolpidem Tartrate 5 MG Tablet 10 MG PO (23:00)
[2024-10-30] MEDS: Enoxaparin 40 MG/0.4 ML Syringe SC (05:39)
[2024-10-30] MEDS: busPIRone 5 MG Tablet PO ×2 (05:39→14:02)
[2024-10-30 06:00] VITALS: BP 116/63; PULSE 75; RESP 16; TEMP 36.5; O2SAT 97
[2024-10-30 06:10] LABS: Bedside Glucose 155 mg/dL (74-106)
[2024-10-30] MEDS: Senna/Docusate Sodium 1 Tablet 2 TABLET PO ×2 (08:09→21:56)
[2024-10-30] MEDS: metFORMIN HCl 1,000 MG Tablet 1000 MG PO ×2 (08:10→16:54)
[2024-10-30] MEDS: Aspirin E.C. 81 MG Tablet PO (08:10)
[2024-10-30] MEDS: Losartan Potassium 100 MG Tablet PO (08:10)
[2024-10-30] MEDS: Sertraline 100 MG Tablet PO (08:10)
[2024-10-30] MEDS: Clopidogrel Bisulfate 75 MG Tablet PO (08:10)
[2024-10-30] MEDS: Fenofibrate 145 MG Tablet PO (08:10)
[2024-10-30 13:55] VITALS: BMI 32.3
[2024-10-30] MEDS: glipiZIDE 5 MG Tablet 2.5 MG PO (16:54)
[2024-10-30 16:56] LABS: Bedside Glucose 106 mg/dL (74-106)
[2024-10-30 17:44] VITALS: BP 113/66; PULSE 77; RESP 16; TEMP 36.4; O2SAT 92
[2024-10-30] MEDS: busPIRone 5 MG Tablet 10 MG PO (21:56)
[2024-10-30] MEDS: Atorvastatin Calcium 40 MG Tablet PO (21:56)
[2024-10-30 22:25] LABS: Bedside Glucose 88 mg/dL (74-106)
[2024-10-30] MEDS: Insulin Glargine-YFGN 100 UNIT/ML Pen 34 UNIT SC (23:02)
[2024-10-30] MEDS: Zolpidem Tartrate 5 MG Tablet 10 MG PO (23:09)
[2024-10-30 23:36] LABS: Bedside Glucose 121 mg/dL (74-106)
[2024-10-31 06:00] VITALS: BP 107/61; PULSE 70; RESP 18; TEMP 36.2; O2SAT 95
[2024-10-31] MEDS: busPIRone 5 MG Tablet PO ×2 (06:31→13:05)
[2024-10-31] MEDS: Enoxaparin 40 MG/0.4 ML Syringe SC (06:31)
[2024-10-31 07:09] LABS: Bedside Glucose 134 mg/dL (74-106)
[2024-10-31 08:17] VITALS: BP 103/61; PULSE 75
[2024-10-31] MEDS: metFORMIN HCl 1,000 MG Tablet 1000 MG PO ×2 (08:19→16:54)
[2024-10-31] MEDS: Losartan Potassium 100 MG Tablet PO (08:19)
[2024-10-31] MEDS: Clopidogrel Bisulfate 75 MG Tablet PO (08:19)
[2024-10-31] MEDS: Senna/Docusate Sodium 1 Tablet 2 TABLET PO ×2 (08:19→21:03)
[2024-10-31] MEDS: Fenofibrate 145 MG Tablet PO (08:19)
[2024-10-31] MEDS: Sertraline 100 MG Tablet PO (08:19)
[2024-10-31] MEDS: Aspirin E.C. 81 MG Tablet PO (08:19)
[2024-10-31 12:05] VITALS: BMI 32.3
[2024-10-31 17:12] LABS: Bedside Glucose 99 mg/dL (74-106)
[2024-10-31 18:00] VITALS: BP 116/73; PULSE 72; RESP 16; TEMP 36.8; O2SAT 96
[2024-10-31] MEDS: busPIRone 5 MG Tablet 10 MG PO (21:02)
[2024-10-31] MEDS: Atorvastatin Calcium 40 MG Tablet PO (21:03)
[2024-10-31] MEDS: Insulin Glargine-YFGN 100 UNIT/ML Pen 34 UNIT SC (21:03)
[2024-10-31 21:28] LABS: Bedside Glucose 116 mg/dL (74-106)
[2024-10-31 22:31] VITALS: BMI 32.3
[2024-10-31] MEDS: Zolpidem Tartrate 5 MG Tablet 10 MG PO (23:07)
[2024-11-01] MEDS: Enoxaparin 40 MG/0.4 ML Syringe SC (06:07)
[2024-11-01] MEDS: busPIRone 5 MG Tablet PO ×2 (06:08→15:12)
[2024-11-01 06:10] VITALS: BP 103/59; PULSE 72; RESP 15; TEMP 36.6; O2SAT 96
[2024-11-01 06:52] LABS: Bedside Glucose 143 mg/dL (74-106)
[2024-11-01] MEDS: Sertraline 100 MG Tablet PO (07:40)
[2024-11-01] MEDS: Losartan Potassium 100 MG Tablet PO (07:40)
[2024-11-01] MEDS: metFORMIN HCl 1,000 MG Tablet 1000 MG PO ×2 (07:40→17:03)
[2024-11-01] MEDS: Aspirin E.C. 81 MG Tablet PO (07:41)
[2024-11-01] MEDS: Senna/Docusate Sodium 1 Tablet 2 TABLET PO ×2 (07:41→22:35)
[2024-11-01] MEDS: Fenofibrate 145 MG Tablet PO (07:41)
[2024-11-01] MEDS: Clopidogrel Bisulfate 75 MG Tablet PO (07:41)
[2024-11-01 07:48] VITALS: BP 122/61; PULSE 68
[2024-11-01 16:06] VITALS: BMI 32.3
[2024-11-01 16:15] LABS: Bedside Glucose 158 mg/dL (74-106)
[2024-11-01 17:55] VITALS: BP 113/59; PULSE 80; RESP 16; TEMP 36.6; O2SAT 95
[2024-11-01] MEDS: busPIRone 5 MG Tablet 10 MG PO (22:34)
[2024-11-01] MEDS: Atorvastatin Calcium 40 MG Tablet PO (22:34)
[2024-11-01] MEDS: Insulin Glargine-YFGN 100 UNIT/ML Pen 34 UNIT SC (22:35)
[2024-11-01] MEDS: Zolpidem Tartrate 5 MG Tablet 10 MG PO (22:35)
[2024-11-01 23:08] VITALS: BMI 32.3
[2024-11-01 23:14] LABS: Bedside Glucose 117 mg/dL (74-106)
[2024-11-02] MEDS: Enoxaparin 40 MG/0.4 ML Syringe SC (05:21)
[2024-11-02] MEDS: busPIRone 5 MG Tablet PO ×2 (05:21→14:08)
[2024-11-02 06:10] VITALS: BP 115/70; PULSE 80; RESP 18; TEMP 36.3; O2SAT 99
[2024-11-02 06:20] LABS: Bedside Glucose 147 mg/dL (74-106)
[2024-11-02] MEDS: Senna/Docusate Sodium 1 Tablet 2 TABLET PO ×2 (07:46→21:19)
[2024-11-02] MEDS: Fenofibrate 145 MG Tablet PO (07:46)
[2024-11-02] MEDS: Losartan Potassium 100 MG Tablet PO (07:46)
[2024-11-02] MEDS: metFORMIN HCl 1,000 MG Tablet 1000 MG PO ×2 (07:46→16:56)
[2024-11-02] MEDS: Clopidogrel Bisulfate 75 MG Tablet PO (07:46)
[2024-11-02] MEDS: Aspirin E.C. 81 MG Tablet PO (07:46)
[2024-11-02] MEDS: Sertraline 100 MG Tablet PO (07:46)
--- NOTE | 2024-11-02 09:10 | PN_ITS ---
Subjective Subjective Afebrile VSS -blood pressure is at goal and the heart rate ranged from 68-80 over the weekend. Maintaining appropriate oxygen saturation on RA Oral intake - FOOD good FLUIDS good The blood sugar record was reviewed. Blood sugars are under good control with no hypoglycemia no blood sugar greater than 160. Discussed with nursing - no problems that need addressed. Sleeping well at night and wearing his CPAP. Taking the Ambien every night for insomnia. Buspar was also increased to 10 mg at HS. Reviewed the THERAPY notes - ambulated 12' on Saturday with the HW at [facility]. He was able to perform a sit to stand from the bedside commode with minimal assistance x 1 on Saturday. He was min assist for toileting tasks. Medication list reviewed. Nils tells me he is sleeping much better since the Ambien was increased to 10 mg. He is also denying feeling anxious today. He denies nausea/vomiting/abdominal pain/abdominal cramping, chest pain, shortness of breath, palpitations, lightheadedness, cephalgia. He is happy with his progress. Objective Data Objective Data Vital Signs: Vital Signs Temp Pulse Resp BP Pulse Ox O2 Del Method 97.4 F L 80 18 115/70 99 Room Air 11/02/24 06:10 11/02/24 06:10 11/02/24 06:10 11/02/24 06:10 11/02/24 06:10 11/02/24 06:10 Oxygen Delivery Method Room Air Weight: 205 lb 14.588 oz Body Mass Index (BMI) 32.3 Intake & Output: Intake and Output for Last 24 Hours 10/31/24 11/01/24 11/02/24 23:59 23:59 23:59 Intake Total 1999 / 0 1610 / 1610 240 / 240 Output Total 1750 / 2100 1525 / 1525 400 / 400 Balance 250 / 110 85 / 85 -160 / -160 Lab / Micro Data 10/22/24 10:37 10/22/24 10:37 Labs: Laboratory Results - last 24 hr 11/01/24 15:53: POC Glucose 158 H 11/01/24 22:37: POC Glucose 117 H 11/02/24 06:01: POC Glucose 147 H Physical Exam Const alert, oriented x3 and no apparent distress Constitutional Narrative: Speech is more crisp and slurring is much less. I can understand what he is saying with no problem now. General Appearance: cooperative and well kempt Orientation / Consciousness: Negative for confused HEENT moist oral mucous membranes Eyes PERRL, EOMs intact bilaterally, conjunctivae normal and no scleral icterus Eyes Narrative: No discharge from the eyes and no mattering of the eyelashes. Neck supple General: trachea midline Resp normal respiratory effort and clear to auscultation bilaterally Resp Narrative: No conversational dyspnea Effort and Inspection: Negative for tachypneic Cardio regular rate, regular rhythm and no gallops Cardio Narrative: No ectopy GI normal to inspection, nondistended, normoactive bowel sounds, soft to palpation and non-tender GI Narrative: No guarding with palpation no CVA tenderness Narrative: 338 post void residual Extremity no calf tenderness Extremity Narrative: He has mild edema in the right hand secondary to immobility. General Extremity: Negative for edema Skin no jaundice General Skin Exam: no breakdown Rashes: no rashes Neuro oriented x3 Neuro Narrative: R facial droop is much improved. He is now able to close both eyes tightly and raise both eye brows. He has some shoulder shrug on the R now. He has a weak hand grasp on the R and he has some tone in the R biceps and forearm. He is able to move the R arm and rotate the forearm when it is lying on the bed but, still not able to lift it off the bed. He can lift the R leg off the bed and hold it up for a count of 5. No appreciable plantar or dorsi flexion on the R foot. He has good contraction of the R quad and the R hamstring. Psych affect normal Psych Narrative: He is calm and engaged when we are talking. Seems more relaxed and in a better place emotionally. Appearance: appropriate Attitude: No agitated Activity / Motor Behavior: appropriate eye contact Speech: slurred Mood & Affect: anxious and irritable Assessment & Plan Assessment/Plan (1) Physical debility: (2) Acute CVA (cerebrovascular accident): (3) Hemiplegia affecting right dominant side: QUALIFIERS: Hemiplegia type: flaccid Hemiplegia etiology: late effect of cerebrovascular disease Cerebrovascular disease type: cerebral infarction Qualified Code(s): I69.351 - Hemiplegia and hemiparesis following cerebral infarction affecting right dominant side (4) Dysphagia: QUALIFIERS: Dysphagia type: oropharyngeal phase Qualified Code(s): R13.12 - Dysphagia, oropharyngeal phase (5) Dysarthria due to acute stroke: (6) Facial droop due to acute stroke: (7) Paresthesias: (8) Urine retention: (9) HTN (hypertension): QUALIFIERS: Hypertension type: primary hypertension Qualified Code(s): I10 - Essential (primary) hypertension (10) Hyperlipidemia: QUALIFIERS: Hyperlipidemia type: mixed hyperlipidemia Qualified Code(s): E78.2 - Mixed hyperlipidemia (11) Diabetes mellitus type 2 with complications: (12) Obstructive sleep apnea: (13) Dehydration: (14) Insomnia: QUALIFIERS: Insomnia type: unspecified Qualified Code(s): G47.00 - Insomnia, unspecified (15) Anxiety and depression: PLAN: Plan 1. Continue therapy 2. No changes to the drug regimen today 3. CBC, mag and BMP in the a.m. 4. Discussed goals again for tx/prevention of CVA's. No more than 2 alcoholic drinks a day, No smoking at all, LDL less than 70, HGBA1C less than 7, HDL > 40, BP < 130/80. He denies any cravings for cigars at this time. Charges/Coding Visit Charges Inpatient E&M: 72297 Subs Hosp L1
[2024-11-02 15:25] VITALS: BMI 32.3
[2024-11-02 16:25] LABS: Bedside Glucose 137 mg/dL (74-106)
[2024-11-02 18:00] VITALS: BP 113/51; PULSE 84; RESP 16; TEMP 36.5; O2SAT 94
[2024-11-02 19:47] VITALS: PULSE 84; RESP 16
[2024-11-02] MEDS: Atorvastatin Calcium 40 MG Tablet PO (21:19)
[2024-11-02] MEDS: busPIRone 5 MG Tablet 10 MG PO (21:20)
[2024-11-02] MEDS: Insulin Glargine-YFGN 100 UNIT/ML Pen 34 UNIT SC (21:21)
[2024-11-02 21:38] LABS: Bedside Glucose 125 mg/dL (74-106)
[2024-11-02 22:35] VITALS: BMI 32.3
[2024-11-02] MEDS: Zolpidem Tartrate 5 MG Tablet 10 MG PO (22:59)
[2024-11-03 06:00] VITALS: BP 121/64; PULSE 74; RESP 16; TEMP 36.3; O2SAT 96
[2024-11-03] MEDS: Enoxaparin 40 MG/0.4 ML Syringe SC (06:21)
[2024-11-03] MEDS: busPIRone 5 MG Tablet PO ×2 (06:21→13:54)
[2024-11-03 06:37] LABS: Bedside Glucose 140 mg/dL (74-106)
[2024-11-03] MEDS: Losartan Potassium 100 MG Tablet PO (08:21)
[2024-11-03] MEDS: Sertraline 100 MG Tablet PO (08:21)
[2024-11-03] MEDS: Fenofibrate 145 MG Tablet PO (08:21)
[2024-11-03] MEDS: Clopidogrel Bisulfate 75 MG Tablet PO (08:21)
[2024-11-03] MEDS: Senna/Docusate Sodium 1 Tablet 2 TABLET PO ×2 (08:21→21:55)
[2024-11-03] MEDS: metFORMIN HCl 1,000 MG Tablet 1000 MG PO ×2 (08:22→17:29)
[2024-11-03] MEDS: Aspirin E.C. 81 MG Tablet PO (08:22)
[2024-11-03 08:39] LABS: Hematocrit 42.4 % (40-54); Hemoglobin 14.1 g/dL (13.0-16.5); Mean Corp Hgb Conc 33.3 g/dL (32-36); Mean Corpuscular Hgb 30.7 pg (27.0-32.0); Mean Corpuscular Volume 92.4 fL (80-94); Mean Platelet Vol. 10.2 fl (6.2-12.0); Platelet Count 345 K/mm3 (150-450); RBC Distribution Width CV 12.5 % (11.6-14.6); RBC Distribution Width SD 42.3 fl (35.1-43.9); Red Blood Count 4.59 M/mm3 (4.6-6.2); White Blood Count 8.5 K/mm3 (4.4-11.0)
--- NOTE | 2024-11-03 08:41 | PCM.PROGNOTE ---
Subjective Subjective Afebrile VSS -blood pressure is at goal and the heart rate is within normal limits. Maintaining appropriate oxygen saturation on RA Oral intake - FOOD good FLUIDS good The blood sugar record was reviewed. Blood sugars are very well-controlled with no hypoglycemia. Discussed with nursing - no problems that need addressed Reviewed the THERAPY notes Medication list reviewed. All lab drawn this morning was personally reviewed. CBC is unremarkable. Hemoglobin has come down to 14.1 with better hydration. Sodium is 139 and the potassium is 3.5. BUN is 13 with a creatinine of 0.74 which is actually improved. He has increased his fluid intake. FBS on the BMP was 129 today. Calcium is 9.1 and the magnesium is 2.2. Denies lightheadedness, vertigo, cephalgia, chest pain, shortness of breath, palpitations, dysuria, nausea/vomiting and calf pain. Denies myalgia. Objective Data Objective Data Vital Signs: Vital Signs Temp Pulse Resp BP Pulse Ox O2 Del Method 97.3 F L 74 16 121/64 H 96 Room Air 11/03/24 06:00 11/03/24 06:00 11/03/24 06:00 11/03/24 06:00 11/03/24 06:00 11/03/24 06:00 Oxygen Delivery Method Room Air Weight: 205 lb 14.588 oz Body Mass Index (BMI) 32.3 Intake & Output: Intake and Output for Last 24 Hours 11/01/24 11/02/24 11/03/24 23:59 23:59 23:59 Intake Total 1610 / 1610 1650 / 1650 250 / 250 Output Total 1525 / 1525 1200 / 1200 175 / 175 Balance 85 / 85 450 / 450 75 / 75 Lab / Micro Data 11/03/24 07:24 11/03/24 07:24 Labs: Laboratory Results - last 24 hr 11/02/24 16:06: POC Glucose 137 H 11/02/24 21:20: POC Glucose 125 H 11/03/24 06:19: POC Glucose 140 H 11/03/24 07:24: WBC 8.5, RBC 4.59 L, Hgb 14.1, Hct 42.4, MCV 92.4, MCH 30.7, MCHC 33.3, RDW Std Deviation 42.3, RDW Coeff of Vu 12.5, Plt Count 345, MPV 10.2 Physical Exam Const alert, oriented x3 and no apparent distress Resp normal respiratory effort and clear to auscultation bilaterally Resp Narrative: No conversational dyspnea Effort and Inspection: Negative for tachypneic Cardio regular rate, regular rhythm and no gallops Cardio Narrative: No ectopy GI normal to inspection, nondistended, normoactive bowel sounds, soft to palpation and non-tender GI Narrative: No guarding with palpation Extremity no calf tenderness Skin General Skin Exam: no breakdown Rashes: no rashes Assessment & Plan Assessment/Plan (1) Physical debility: (2) Acute CVA (cerebrovascular accident): (3) Hemiplegia affecting right dominant side: QUALIFIERS: Hemiplegia type: flaccid Hemiplegia etiology: late effect of cerebrovascular disease Cerebrovascular disease type: cerebral infarction Qualified Code(s): I69.351 - Hemiplegia and hemiparesis following cerebral infarction affecting right dominant side (4) Dysphagia: QUALIFIERS: Dysphagia type: oropharyngeal phase Qualified Code(s): R13.12 - Dysphagia, oropharyngeal phase (5) Dysarthria due to acute stroke: (6) Facial droop due to acute stroke: (7) Paresthesias: (8) HTN (hypertension): QUALIFIERS: Hypertension type: primary hypertension Qualified Code(s): I10 - Essential (primary) hypertension (9) Hyperlipidemia: QUALIFIERS: Hyperlipidemia type: mixed hyperlipidemia Qualified Code(s): E78.2 - Mixed hyperlipidemia (10) Diabetes mellitus type 2 with complications: (11) Obstructive sleep apnea: (12) Insomnia: QUALIFIERS: Insomnia type: unspecified Qualified Code(s): G47.00 - Insomnia, unspecified (13) Anxiety and depression: PLAN: Plan 1. Continue therapy 2. 20 mEq of potassium chloride today and then start 10 mEq daily. Would like to see the potassium closer to 4 since PAF is still in the realm of possibility as etiolgy of the stroke Charges/Coding Visit Charges Inpatient E&M: 53528 Subs Hosp L1
[2024-11-03 09:00] LABS: Anion Gap 5 (5-15); BUN 13 mg/dL (7-18); BUN/Creat Ratio 17.7 RATIO (10-20); Calcium,Total 9.1 mg/dL (8.5-10.1); Chloride 105 mmol/L (98-107); Creatinine, Serum 0.74 mg/dL (0.70-1.30); EST Glomerular Filtration Rate 114 mL/min (>60); Est Glom Filt Rate - Afr Amer 138 mL/min (>60); Estimated Creatinine Clearance 107.89 ml/min; Glucose 129 mg/dL (74-106); Magnesium 2.2 mg/dL (1.6-2.6); Potassium 3.5 mmol/L (3.5-5.1); Sodium Level 139 mmol/L (136-145)
[2024-11-03] MEDS: Potassium Chloride Oral Tablet 20 MEQ PO (12:11)
--- NOTE | 2024-11-03 12:47 | CASEMGMT ---
Social Work SW received call from sister requesting referral to [facility]. SW to place referral, but encouraged sister to choose a second option as well. Sister to discuss with pt and dtr. Referral sent to [facility] via [employer]. Amisha Heath MSW [employer]
[2024-11-03 16:14] VITALS: BMI 32.3
[2024-11-03 16:28] LABS: Bedside Glucose 105 mg/dL (74-106)
[2024-11-03 17:55] VITALS: BP 113/57; PULSE 79; RESP 17; TEMP 36.8; O2SAT 94
[2024-11-03] MEDS: Insulin Glargine-YFGN 100 UNIT/ML Pen 34 UNIT SC (21:54)
[2024-11-03] MEDS: busPIRone 5 MG Tablet 10 MG PO (21:55)
[2024-11-03] MEDS: Atorvastatin Calcium 40 MG Tablet PO (21:55)
[2024-11-03 22:00] VITALS: PULSE 92; RESP 16
[2024-11-03 22:04] VITALS: BMI 32.3
[2024-11-03 22:27] LABS: Bedside Glucose 136 mg/dL (74-106)
[2024-11-03] MEDS: Zolpidem Tartrate 5 MG Tablet 10 MG PO (22:59)
[2024-11-04 06:00] VITALS: BP 128/68; PULSE 72; RESP 16; TEMP 36.6; O2SAT 96; BMI 32.3
[2024-11-04] MEDS: busPIRone 5 MG Tablet PO ×2 (06:38→14:01)
[2024-11-04] MEDS: Enoxaparin 40 MG/0.4 ML Syringe SC (06:38)
[2024-11-04 07:28] LABS: Bedside Glucose 175 mg/dL (74-106)
[2024-11-04] MEDS: Fenofibrate 145 MG Tablet PO (08:28)
[2024-11-04] MEDS: metFORMIN HCl 1,000 MG Tablet 1000 MG PO ×2 (08:28→16:50)
[2024-11-04] MEDS: Clopidogrel Bisulfate 75 MG Tablet PO (08:28)
[2024-11-04] MEDS: Losartan Potassium 100 MG Tablet PO (08:28)
[2024-11-04] MEDS: Potassium Chloride Oral Tablet 10 MEQ PO (08:28)
[2024-11-04] MEDS: Aspirin E.C. 81 MG Tablet PO (08:28)
[2024-11-04] MEDS: Sertraline 100 MG Tablet PO (08:28)
[2024-11-04 14:39] VITALS: BMI 32.3
[2024-11-04 17:11] LABS: Bedside Glucose 107 mg/dL (74-106)
[2024-11-04 17:21] VITALS: BP 128/63; PULSE 77; RESP 18; TEMP 36.4; O2SAT 95
[2024-11-04] MEDS: Insulin Glargine-YFGN 100 UNIT/ML Pen 34 UNIT SC (20:59)
[2024-11-04] MEDS: Senna/Docusate Sodium 1 Tablet 2 TABLET PO (21:00)
[2024-11-04] MEDS: busPIRone 5 MG Tablet 10 MG PO (21:01)
[2024-11-04] MEDS: Atorvastatin Calcium 40 MG Tablet PO (21:01)
[2024-11-04 21:20] LABS: Bedside Glucose 122 mg/dL (74-106)
[2024-11-04] MEDS: Zolpidem Tartrate 5 MG Tablet 10 MG PO (23:18)
[2024-11-05 02:28] VITALS: BMI 32.3
[2024-11-05 06:00] VITALS: BP 118/58; PULSE 76; RESP 17; TEMP 36.2; O2SAT 96
[2024-11-05] MEDS: Enoxaparin 40 MG/0.4 ML Syringe SC (06:39)
[2024-11-05] MEDS: busPIRone 5 MG Tablet PO ×2 (06:40→14:14)
[2024-11-05 07:18] LABS: Bedside Glucose 122 mg/dL (74-106)
[2024-11-05] MEDS: Potassium Chloride Oral Tablet 10 MEQ PO (07:42)
[2024-11-05] MEDS: metFORMIN HCl 1,000 MG Tablet 1000 MG PO ×2 (07:42→16:52)
[2024-11-05] MEDS: Aspirin E.C. 81 MG Tablet PO (07:43)
[2024-11-05] MEDS: Fenofibrate 145 MG Tablet PO (07:43)
[2024-11-05] MEDS: Sertraline 100 MG Tablet PO (07:43)
[2024-11-05] MEDS: Senna/Docusate Sodium 1 Tablet 2 TABLET PO (07:43)
[2024-11-05] MEDS: Losartan Potassium 100 MG Tablet PO (07:43)
--- NOTE | 2024-11-05 08:53 | PCM.PROGNOTE ---
Subjective Subjective Nils was seen on TEAM rounds today. Afebrile VSS -blood pressure is within goal Maintaining appropriate oxygen saturation on RA Oral intake - FOOD good FLUIDS good The blood sugar record was reviewed. Blood sugars are very well-controlled with no hypoglycemia and no blood sugars greater than 180. Discussed with nursing - no problems that need addressed Reviewed the THERAPY notes - making good progress. Very motivated. Getting more movement in the RUE. Still having trouble with catching the toe on the step. He is now able to stand pivot to and from the bedside commode at minimal assistance. He is still mod assist for toileting tasks for balance and assistance with clothing. He is able to do his hygiene post BM but, needs assistance for balance when standing to complete hygiene. Family would like to take him home......to his sister's house but, they have a few steps which he is unable to do as of yet. They potentially can get a ramp put in. Needs to be able to be independent with toileting. FAmily will stay next for family training to see if they will be able to manage his care at home. Medication list reviewed. Nils denies lightheadedness, vertigo, CP, SOB at rest, SOB with exertion, cough, nausea, vomiting, abd pain, diarrhea, constipation, dysuria, calf pain and ankle swelling. He is sleeping well at night and has a good appetite. Good attitude and is upbeat and looking forward to the future. Objective Data Objective Data Vital Signs: Vital Signs Temp Pulse Resp BP Pulse Ox O2 Del Method 97.2 F L 76 17 118/58 L 96 Room Air 11/05/24 06:00 11/05/24 06:00 11/05/24 06:00 11/05/24 06:00 11/05/24 06:00 11/05/24 06:00 Oxygen Delivery Method Room Air Weight: 205 lb 11.06 oz Body Mass Index (BMI) 32.3 Intake & Output: Intake and Output for Last 24 Hours 11/03/24 11/04/24 11/05/24 23:59 23:59 23:59 Intake Total 1360 / 1610 1750 / 2110 560 / 560 Output Total 1900 / 2100 1200 / 1600 700 / 700 Balance -540 / -490 550 / 510 -140 / -140 Lab / Micro Data 11/03/24 07:24 11/03/24 07:24 Labs: Laboratory Results - last 24 hr 11/04/24 16:51: POC Glucose 107 H 11/04/24 20:59: POC Glucose 122 H 11/05/24 06:38: POC Glucose 122 H Physical Exam Const alert, oriented x3 and no apparent distress Resp normal respiratory effort and clear to auscultation bilaterally Resp Narrative: No conversational dyspnea Effort and Inspection: Negative for tachypneic Cardio regular rate, regular rhythm and no gallops Cardio Narrative: No ectopy GI normal to inspection, nondistended, normoactive bowel sounds, soft to palpation and non-tender GI Narrative: No guarding with palpation Extremity no calf tenderness Skin General Skin Exam: no breakdown Rashes: no rashes Assessment & Plan Assessment/Plan (1) Physical debility: (2) Acute CVA (cerebrovascular accident): (3) Hemiplegia affecting right dominant side: QUALIFIERS: Hemiplegia type: flaccid Hemiplegia etiology: late effect of cerebrovascular disease Cerebrovascular disease type: cerebral infarction Qualified Code(s): I69.351 - Hemiplegia and hemiparesis following cerebral infarction affecting right dominant side (4) Dysphagia: QUALIFIERS: Dysphagia type: oropharyngeal phase Qualified Code(s): R13.12 - Dysphagia, oropharyngeal phase (5) Dysarthria due to acute stroke: (6) Facial droop due to acute stroke: (7) Paresthesias: (8) HTN (hypertension): QUALIFIERS: Hypertension type: primary hypertension Qualified Code(s): I10 - Essential (primary) hypertension (9) Hyperlipidemia: QUALIFIERS: Hyperlipidemia type: mixed hyperlipidemia Qualified Code(s): E78.2 - Mixed hyperlipidemia (10) Diabetes mellitus type 2 with complications: (11) Obstructive sleep apnea: (12) Insomnia: QUALIFIERS: Insomnia type: unspecified Qualified Code(s): G47.00 - Insomnia, unspecified (13) Anxiety and depression: PLAN: Plan 1. Continue therapy 2. Recheck potassium in the a.m. 3. discussed risk factors for strokes/CV disease again with patient and reviewed goals for treatment. No more than 2 alcoholic drinks a day. NO smoking. LDL < 70 and HGBA1C < 7. BP < 130/80. We talked about adherence to a carb controlled diet. All questions were answered to the patient's and the family's satisfaction. I suspect if he stays on rehab another 7-10 days he will be able to go home with his sister at [place]. He is making steady progress. Charges/Coding Visit Charges Inpatient E&M: 34746 Subs Hosp L2
[2024-11-05 09:27] VITALS: BMI 32.3
--- NOTE | 2024-11-05 12:49 | CASEMGMT ---
Addendum entered by Amisha Heath 11/05/24 16:05: Elvi at [facility] has made several attempts to contact pt's insurance company to verify benefits, but all attempts have been unsuccessful. SW to update pt. Original Note: Social Work IDT met with patient, sister and niece for Team meeting. Discussed patient's progress in PT/OT/ST/SN. Educated to [employer] insurance with NRD 3/3 and continued stay is not guaranteed with each review. [facility] is verifying insurance coverage. SW inquired about additional SNF preferences if [facility] cannot accept. Pt requested [facility]. PT explored further about goals for homegoing, as steps are still requiring x2 assist and not safe. Inquired about a ramp. Pt would live at sister's house that has a ramp and once pt is inside, it is a first floor set up. SW offered for family to attend therapy training to better gauge LOC pt is currently needing, and pending insurance approvals, if the goal can return to home. All in agreement. Scheduled therapy training for 3/6 after Team meeting. Pt expressed he does not feel comfortable returning home at this time, but is encouraged to not transferring to a SNF. SW agreed. PT is recommending OP therapy for higher level therapy at [place]. Pt agrees. SW to coordinate all DC needs. Will wait to place referral to [facility]. Will ReTeam weekly. Amisha Heath [employer] WORK[employer]
[2024-11-05 17:20] LABS: Bedside Glucose 144 mg/dL (74-106)
[2024-11-05 17:35] VITALS: BP 133/68; PULSE 82; RESP 15; TEMP 35.9; O2SAT 94
[2024-11-05] MEDS: busPIRone 5 MG Tablet 10 MG PO (21:50)
[2024-11-05] MEDS: Insulin Glargine-YFGN 100 UNIT/ML Pen 34 UNIT SC (21:50)
[2024-11-05] MEDS: Atorvastatin Calcium 40 MG Tablet PO (21:50)
[2024-11-05 22:51] LABS: Bedside Glucose 160 mg/dL (74-106)
[2024-11-05] MEDS: Zolpidem Tartrate 5 MG Tablet 10 MG PO (23:07)
[2024-11-06 02:40] VITALS: BMI 32.3
[2024-11-06 06:00] VITALS: BP 129/60; PULSE 76; RESP 17; TEMP 36.2; O2SAT 95
[2024-11-06] MEDS: busPIRone 5 MG Tablet PO ×2 (06:15→14:27)
[2024-11-06] MEDS: Enoxaparin 40 MG/0.4 ML Syringe SC (06:15)
[2024-11-06 06:36] LABS: Bedside Glucose 117 mg/dL (74-106)
[2024-11-06 08:08] VITALS: BP 109/41; PULSE 84
[2024-11-06] MEDS: Losartan Potassium 100 MG Tablet PO (08:11)
[2024-11-06] MEDS: Senna/Docusate Sodium 1 Tablet 2 TABLET PO ×2 (08:11→21:31)
[2024-11-06] MEDS: Fenofibrate 145 MG Tablet PO (08:11)
[2024-11-06] MEDS: Aspirin E.C. 81 MG Tablet PO (08:11)
[2024-11-06] MEDS: Potassium Chloride Oral Tablet 10 MEQ PO (08:11)
[2024-11-06] MEDS: metFORMIN HCl 1,000 MG Tablet 1000 MG PO ×2 (08:11→17:13)
[2024-11-06] MEDS: Sertraline 100 MG Tablet PO (08:12)
[2024-11-06 13:55] LABS: Potassium 3.8 mmol/L (3.3-5.1)
[2024-11-06 13:59] VITALS: BMI 32.3
[2024-11-06 16:22] LABS: Bedside Glucose 99 mg/dL (74-106)
[2024-11-06 17:28] VITALS: BP 120/64; PULSE 74; RESP 17; TEMP 35.8; O2SAT 95
[2024-11-06] MEDS: busPIRone 5 MG Tablet 10 MG PO (21:31)
[2024-11-06] MEDS: Atorvastatin Calcium 40 MG Tablet PO (21:31)
[2024-11-06] MEDS: Insulin Glargine-YFGN 100 UNIT/ML Pen 34 UNIT SC (21:36)
[2024-11-06 22:00] VITALS: PULSE 74; RESP 16
[2024-11-06] MEDS: Zolpidem Tartrate 5 MG Tablet 10 MG PO (23:00)
[2024-11-06 23:04] LABS: Bedside Glucose 125 mg/dL (74-106)
[2024-11-06 23:28] VITALS: BMI 32.3
[2024-11-07 06:00] VITALS: BP 124/78; PULSE 74; RESP 15; TEMP 36.8; O2SAT 94
[2024-11-07] MEDS: Enoxaparin 40 MG/0.4 ML Syringe SC (06:53)
[2024-11-07] MEDS: busPIRone 5 MG Tablet PO ×2 (06:53→14:12)
[2024-11-07 07:05] LABS: Bedside Glucose 132 mg/dL (74-106)
[2024-11-07] MEDS: Sertraline 100 MG Tablet PO (08:58)
[2024-11-07] MEDS: Potassium Chloride Oral Tablet 10 MEQ PO (08:58)
[2024-11-07] MEDS: Senna/Docusate Sodium 1 Tablet 2 TABLET PO ×2 (08:58→23:11)
[2024-11-07] MEDS: Aspirin E.C. 81 MG Tablet PO (08:58)
[2024-11-07] MEDS: Fenofibrate 145 MG Tablet PO (08:58)
[2024-11-07] MEDS: Losartan Potassium 100 MG Tablet PO (08:59)
[2024-11-07] MEDS: metFORMIN HCl 1,000 MG Tablet 1000 MG PO ×2 (08:59→17:10)
[2024-11-07 09:27] VITALS: PULSE 74; RESP 16
[2024-11-07 16:33] LABS: Bedside Glucose 128 mg/dL (74-106)
[2024-11-07 17:00] VITALS: BMI 32.3
[2024-11-07 17:35] VITALS: BP 115/57; PULSE 79; RESP 16; TEMP 36.2; O2SAT 94
[2024-11-07] MEDS: Insulin Glargine-YFGN 100 UNIT/ML Pen 34 UNIT SC (23:09)
[2024-11-07] MEDS: busPIRone 5 MG Tablet 10 MG PO (23:09)
[2024-11-07] MEDS: Atorvastatin Calcium 40 MG Tablet PO (23:11)
[2024-11-07] MEDS: Zolpidem Tartrate 5 MG Tablet 10 MG PO (23:12)
[2024-11-07 23:46] LABS: Bedside Glucose 138 mg/dL (74-106)
[2024-11-08 00:01] VITALS: BMI 32.3
[2024-11-08 06:00] VITALS: BP 101/53; PULSE 75; RESP 17; TEMP 36.9; O2SAT 94
[2024-11-08] MEDS: Enoxaparin 40 MG/0.4 ML Syringe SC (06:44)
[2024-11-08] MEDS: busPIRone 5 MG Tablet PO ×2 (06:44→13:45)
[2024-11-08 07:20] LABS: Bedside Glucose 125 mg/dL (74-106)
[2024-11-08] MEDS: Senna/Docusate Sodium 1 Tablet 2 TABLET PO ×2 (08:19→21:49)
[2024-11-08] MEDS: Aspirin E.C. 81 MG Tablet PO (08:19)
[2024-11-08] MEDS: metFORMIN HCl 1,000 MG Tablet 1000 MG PO ×2 (08:19→17:15)
[2024-11-08] MEDS: Losartan Potassium 100 MG Tablet PO (08:20)
[2024-11-08] MEDS: Sertraline 100 MG Tablet PO (08:21)
[2024-11-08] MEDS: Potassium Chloride Oral Tablet 10 MEQ PO (08:21)
[2024-11-08] MEDS: Fenofibrate 145 MG Tablet PO (08:21)
[2024-11-08 08:26] VITALS: BP 127/60; PULSE 73
[2024-11-08 15:00] VITALS: BMI 32.3
[2024-11-08 17:36] LABS: Bedside Glucose 97 mg/dL (74-106)
[2024-11-08 18:00] VITALS: BP 105/59; PULSE 77; RESP 16; TEMP 35.6; O2SAT 98
[2024-11-08] MEDS: Insulin Glargine-YFGN 100 UNIT/ML Pen 34 UNIT SC (21:48)
[2024-11-08] MEDS: busPIRone 5 MG Tablet 10 MG PO (21:49)
[2024-11-08] MEDS: Atorvastatin Calcium 40 MG Tablet PO (21:49)
[2024-11-08 22:13] LABS: Bedside Glucose 110 mg/dL (74-106)
[2024-11-08] MEDS: Zolpidem Tartrate 5 MG Tablet 10 MG PO (22:55)
[2024-11-09 04:24] VITALS: BMI 32.3
[2024-11-09 06:00] VITALS: BP 112/57; PULSE 74; RESP 16; TEMP 36.1; O2SAT 92
[2024-11-09] MEDS: busPIRone 5 MG Tablet PO ×2 (06:26→14:51)
[2024-11-09] MEDS: Enoxaparin 40 MG/0.4 ML Syringe SC (06:26)
[2024-11-09 07:33] LABS: Bedside Glucose 129 mg/dL (74-106)
[2024-11-09] MEDS: Senna/Docusate Sodium 1 Tablet 2 TABLET PO ×2 (08:42→21:08)
[2024-11-09] MEDS: Losartan Potassium 100 MG Tablet PO (08:42)
[2024-11-09] MEDS: Fenofibrate 145 MG Tablet PO (08:42)
[2024-11-09] MEDS: metFORMIN HCl 1,000 MG Tablet 1000 MG PO ×2 (08:43→16:39)
[2024-11-09] MEDS: Aspirin E.C. 81 MG Tablet PO (08:43)
[2024-11-09] MEDS: Sertraline 100 MG Tablet PO (08:43)
[2024-11-09] MEDS: Potassium Chloride Oral Tablet 10 MEQ PO (08:43)
--- NOTE | 2024-11-09 10:35 | PCM.PROGNOTE ---
Subjective Subjective Afebrile VSS -blood pressure remains at goal. Maintaining appropriate oxygen saturation on RA Oral intake - FOOD good FLUIDS good The blood sugar record was reviewed and the blood sugars are under excellent control with no hypoglycemia. Discussed with nursing - no problems that need addressed Reviewed the THERAPY notes - has a new AFO to stabilize the R knee/leg. Able to ambulate 120 feet with the new AFO with a hemiwalker at contact-guard assist today. This is up from ' last . Still requiring wheelchair follow. Medication list reviewed. No complaints. Denies cephalgia, lightheadedness, chest pain, shortness of breath, cough, anxiety/depression, insomnia, dysuria and calf pain. Good bowel function. Sleeping well at night. Denies pain on the R side in the face, arm and leg. Objective Data Objective Data Vital Signs: Vital Signs Temp Pulse Resp BP Pulse Ox O2 Del Method 97 F L 74 16 112/57 L 92 Room Air 11/09/24 06:00 11/09/24 06:00 11/09/24 06:00 11/09/24 06:00 11/09/24 06:00 11/09/24 06:00 Oxygen Delivery Method Room Air Weight: 205 lb 11.06 oz Body Mass Index (BMI) 32.3 Intake & Output: Intake and Output for Last 24 Hours 11/07/24 11/08/24 11/09/24 23:59 23:59 23:59 Intake Total 1580 / 1580 1720 / 2020 400 / 400 Output Total 1025 / 1025 1605 / 1605 550 / 550 Balance 555 / 555 115 / 415 -150 / -150 Lab / Micro Data 11/03/24 07:24 11/06/24 13:00 Labs: Laboratory Results - last 24 hr 11/08/24 17:11: POC Glucose 97 11/08/24 21:47: POC Glucose 110 H 11/09/24 07:14: POC Glucose 129 H Physical Exam Const alert, oriented x3 and no apparent distress Constitutional Narrative: Speech is more crisp and slurring is much less. I can understand what he is saying with no problem now. General Appearance: cooperative and well kempt Orientation / Consciousness: Negative for confused HEENT normocephalic and moist oral mucous membranes Eyes PERRL, EOMs intact bilaterally, conjunctivae normal and no scleral icterus Eyes Narrative: No discharge from the eyes and no mattering of the eyelashes. Neck supple, No nodes and no carotid bruits General: trachea midline Resp normal respiratory effort and clear to auscultation bilaterally Resp Narrative: No conversational dyspnea Effort and Inspection: Negative for tachypneic Cardio regular rate, regular rhythm and no gallops Cardio Narrative: No ectopy GI normal to inspection, nondistended, normoactive bowel sounds, soft to palpation and non-tender GI Narrative: No guarding with palpation no CVA tenderness Narrative: 338 post void residual Extremity no calf tenderness Extremity Narrative: He has mild edema in the right hand secondary to immobility. General Extremity: Negative for edema Skin no jaundice General Skin Exam: no breakdown Rashes: no rashes Neuro oriented x3 Neuro Narrative: Continues to show good progress with therapy. Better shoulder shrug on the R. Poor triceps tone. Better tone in the R biceps. He is developing some contracture of the R hand......I can still get the hand to relax and extend. D/W OT. Consider ordering a splint to prevent flexion contracture. Decreased sensation in the R cheek and the RUE. Sensation in the R thigh is sharp now with pinprick. Still with a R facial droop but, much better than at admission. Speech is always intelligible now. He is happy with his progress. Psych cooperative, affect normal, denies hallucinations, denies homicidal ideation and denies suicidal ideation Psych Narrative: He is calm and engaged when we are talking. Seems more relaxed and in a better place emotionally. Appearance: appropriate and well kempt Attitude: engaged and No agitated Activity / Motor Behavior: appropriate eye contact Speech: slurred Mood & Affect: anxious and irritable Assessment & Plan Assessment/Plan (1) Physical debility: (2) Acute CVA (cerebrovascular accident): (3) Hemiplegia affecting right dominant side: QUALIFIERS: Hemiplegia type: flaccid Hemiplegia etiology: late effect of cerebrovascular disease Cerebrovascular disease type: cerebral infarction Qualified Code(s): I69.351 - Hemiplegia and hemiparesis following cerebral infarction affecting right dominant side (4) Dysphagia: QUALIFIERS: Dysphagia type: oropharyngeal phase Qualified Code(s): R13.12 - Dysphagia, oropharyngeal phase (5) Dysarthria due to acute stroke: (6) Facial droop due to acute stroke: (7) Paresthesias: (8) HTN (hypertension): QUALIFIERS: Hypertension type: primary hypertension Qualified Code(s): I10 - Essential (primary) hypertension (9) Hyperlipidemia: QUALIFIERS: Hyperlipidemia type: mixed hyperlipidemia Qualified Code(s): E78.2 - Mixed hyperlipidemia (10) Diabetes mellitus type 2 with complications: (11) Obstructive sleep apnea: (12) Insomnia: QUALIFIERS: Insomnia type: unspecified Qualified Code(s): G47.00 - Insomnia, unspecified (13) Anxiety and depression: PLAN: Plan 1. Continue therapy 2. No changes to the drug regimen today 3. OT to order or have family order a splint for the R hand to prevent flexion contractures. 4. Still making good progress in therapy. Will continue to treat aggressively Charges/Coding Visit Charges Inpatient E&M: 96267 Subs Hosp L1
[2024-11-09 12:34] VITALS: BMI 32.3
[2024-11-09 16:27] LABS: Bedside Glucose 107 mg/dL (74-106)
[2024-11-09 17:30] VITALS: BP 130/70; PULSE 85; RESP 16; TEMP 36.6; O2SAT 96
[2024-11-09 19:57] VITALS: RESP 16
[2024-11-09] MEDS: Atorvastatin Calcium 40 MG Tablet PO (21:08)
[2024-11-09] MEDS: busPIRone 5 MG Tablet 10 MG PO (21:08)
[2024-11-09] MEDS: Insulin Glargine-YFGN 100 UNIT/ML Pen 34 UNIT SC (21:15)
[2024-11-09 21:35] LABS: Bedside Glucose 122 mg/dL (74-106)
[2024-11-09] MEDS: Zolpidem Tartrate 5 MG Tablet 10 MG PO (23:17)
[2024-11-10 06:00] VITALS: BP 107/57; PULSE 70; RESP 16; TEMP 36.3; O2SAT 94
[2024-11-10] MEDS: Enoxaparin 40 MG/0.4 ML Syringe SC (06:20)
[2024-11-10] MEDS: busPIRone 5 MG Tablet PO ×2 (06:20→14:10)
[2024-11-10 07:14] LABS: Bedside Glucose 127 mg/dL (74-106)
[2024-11-10] MEDS: Potassium Chloride Oral Tablet 10 MEQ PO (08:15)
[2024-11-10] MEDS: Senna/Docusate Sodium 1 Tablet 2 TABLET PO ×2 (08:15→22:05)
[2024-11-10] MEDS: metFORMIN HCl 1,000 MG Tablet 1000 MG PO ×2 (08:15→18:19)
[2024-11-10] MEDS: Fenofibrate 145 MG Tablet PO (08:16)
[2024-11-10] MEDS: Aspirin E.C. 81 MG Tablet PO (08:16)
[2024-11-10] MEDS: Losartan Potassium 100 MG Tablet PO (08:16)
[2024-11-10] MEDS: Sertraline 100 MG Tablet PO (08:16)
--- NOTE | 2024-11-10 09:31 | PCM.PROGNOTE ---
Subjective Subjective Afebrile Vital signs stable Blood sugars are under excellent control with no hypoglycemia Blood pressure is at goal Has been taking Ambien 10 mg nightly. Sleeping well at night. No complaints today. He feels the AFO for the RLE is helping. He walked from his room to the therapy room yesterday....the farthest he has ambulated to date. Denies lightheadedness, chest pain, shortness of breath, cough, sore throat, dysuria and calf tenderness. Objective Data Objective Data Vital Signs: Vital Signs Temp Pulse Resp BP Pulse Ox O2 Del Method 97.3 F L 70 16 107/57 L 94 Room Air 11/10/24 06:00 11/10/24 06:00 11/10/24 06:00 11/10/24 06:00 11/10/24 06:00 11/10/24 06:00 Oxygen Delivery Method Room Air Weight: 205 lb 11.06 oz Body Mass Index (BMI) 32.3 Intake & Output: Intake and Output for Last 24 Hours 11/08/24 11/09/24 11/10/24 23:59 23:59 23:59 Intake Total 1720 / 2020 2212 / 2212 Output Total 1605 / 1605 1325 / 1325 350 / 350 Balance 115 / 415 887 / 887 -350 / -350 Lab / Micro Data 11/03/24 07:24 11/06/24 13:00 Labs: Laboratory Results - last 24 hr 11/09/24 16:08: POC Glucose 107 H 11/09/24 21:14: POC Glucose 122 H 11/10/24 06:27: POC Glucose 127 H Physical Exam Const alert, oriented x3 and no apparent distress Eyes PERRL, EOMs intact bilaterally, conjunctivae normal and no scleral icterus Eyes Narrative: No discharge from the eyes and no mattering of the eyelashes. Resp normal respiratory effort and clear to auscultation bilaterally Resp Narrative: No conversational dyspnea Effort and Inspection: Negative for tachypneic Cardio regular rate, regular rhythm and no gallops Cardio Narrative: No ectopy GI normal to inspection, nondistended, normoactive bowel sounds, soft to palpation and non-tender GI Narrative: No guarding with palpation Extremity no calf tenderness Extremity Narrative: He has mild edema in the right hand secondary to immobility. Skin General Skin Exam: no breakdown Rashes: no rashes Psych Psych Narrative: anxiety is much better than at admission. sleeping well at night. Good appetite. Working hard with therapy and making good progress. Not as irritable. Very appreciative of the staff and what they do for him. Assessment & Plan Assessment/Plan (1) Physical debility: (2) Acute CVA (cerebrovascular accident): (3) Hemiplegia affecting right dominant side: QUALIFIERS: Hemiplegia type: flaccid Hemiplegia etiology: late effect of cerebrovascular disease Cerebrovascular disease type: cerebral infarction Qualified Code(s): I69.351 - Hemiplegia and hemiparesis following cerebral infarction affecting right dominant side (4) Dysphagia: QUALIFIERS: Dysphagia type: oropharyngeal phase Qualified Code(s): R13.12 - Dysphagia, oropharyngeal phase (5) Dysarthria due to acute stroke: (6) Facial droop due to acute stroke: (7) Paresthesias: (8) HTN (hypertension): QUALIFIERS: Hypertension type: primary hypertension Qualified Code(s): I10 - Essential (primary) hypertension (9) Hyperlipidemia: QUALIFIERS: Hyperlipidemia type: mixed hyperlipidemia Qualified Code(s): E78.2 - Mixed hyperlipidemia (10) Diabetes mellitus type 2 with complications: (11) Obstructive sleep apnea: (12) Insomnia: QUALIFIERS: Insomnia type: unspecified Qualified Code(s): G47.00 - Insomnia, unspecified (13) Anxiety and depression: PLAN: Plan 1. Continue therapy 2. Now that the anxiety/depression is better controlled and he is less anxious would like to try to get him off Ambien. Will decrease the dose to 5 mg nightly again. He has been anxious for a long time and was not sleeping well at night even prior to the stroke. Would like to see him follow up with behavioral health following DC from acute rehab. Charges/Coding Visit Charges Inpatient E&M: 77891 Subs Hosp L1
--- NOTE | 2024-11-10 11:29 | CASEMGMT ---
Addendum entered by Amisha Heath 11/10/24 13:42: [facility] can accept - they are INN with pt's insurance. They will submit precert once pt receives a DC date from , if pt cannot go home, and pending precert and bed availability, pt can admit. SW phoned sister to update that [facility] can accept pending bed availability and precert. Sister appreciative. SW will continue to follow. Original Note: Social Work SW has remained in communication with [facility] and sister to collect further information on INN SNFs for pt. Sister contacted new phone number from insurance card and verified benefits. SW provided updated information to [facility]. Sent updated clinicals to review. Pt approved by insurance with [employer] 11/16. SW will continue to follow. Amisha Heath MSW ASSISTANT SERVICE MANAGER
[2024-11-10 13:15] VITALS: BMI 32.3
--- NOTE | 2024-11-10 16:02 | CHAPLAIN ---
Type of Pastoral Visit ___ Initial Visit _x__ Follow-up Visit ___ On-call Visit ___ General Patient Visit ___ Spiritual Assessment ___ Family Conference ___ Bereavement ___ Rapid Response ___ Code Blue ___ Other (describe below) Pastoral Care Referral From _x__ Patient ___ Family ___ Nurse ___ Physician ___ Bilingual Medical Assistant ___ Terrazzo Laborer ___ Other (describe below) Sacrament/Intervention _x__ Active listening ___ Anointing ___ Confucianism ___ Bereavement ___ Communion ___ Bree exploration ___ _x__ Life review _x__ Prayer ___ Reconciliation ___ Sacrament of Sick ___ Supportive presence ___ Wedding ___ Other (describe below) Pastoral Comments follow up visit to this patient who is welcoming and gives updates; pt sees slow progress and acknowledges more positive thinking than he had originally; pt expresses that rehab team and friends/family have been of great help to him; pt welcomes presence and prayer
[2024-11-10 17:21] LABS: Bedside Glucose 109 mg/dL (74-106)
[2024-11-10 18:00] VITALS: BP 121/64; PULSE 77; RESP 16; TEMP 36.6; O2SAT 94
[2024-11-10 19:44] VITALS: BMI 32.3
[2024-11-10 22:00] VITALS: RESP 16
[2024-11-10] MEDS: Atorvastatin Calcium 40 MG Tablet PO (22:05)
[2024-11-10] MEDS: busPIRone 5 MG Tablet 10 MG PO (22:05)
[2024-11-10] MEDS: Insulin Glargine-YFGN 100 UNIT/ML Pen 34 UNIT SC (22:05)
[2024-11-10 22:28] LABS: Bedside Glucose 133 mg/dL (74-106)
[2024-11-10] MEDS: Zolpidem Tartrate 5 MG Tablet PO (22:59)
[2024-11-11 06:00] VITALS: BP 99/50; PULSE 73; RESP 16; TEMP 36.2; O2SAT 94; BMI 31.5
[2024-11-11] MEDS: busPIRone 5 MG Tablet PO ×2 (06:48→14:20)
[2024-11-11] MEDS: Enoxaparin 40 MG/0.4 ML Syringe SC (06:48)
[2024-11-11 07:31] LABS: Bedside Glucose 117 mg/dL (74-106)
[2024-11-11] MEDS: Senna/Docusate Sodium 1 Tablet 2 TABLET PO ×2 (08:27→22:34)
[2024-11-11] MEDS: Potassium Chloride Oral Tablet 10 MEQ PO (08:27)
[2024-11-11] MEDS: Aspirin E.C. 81 MG Tablet PO (08:27)
[2024-11-11] MEDS: Sertraline 100 MG Tablet PO (08:28)
[2024-11-11] MEDS: Losartan Potassium 100 MG Tablet PO (08:28)
[2024-11-11] MEDS: Fenofibrate 145 MG Tablet PO (08:28)
[2024-11-11] MEDS: metFORMIN HCl 1,000 MG Tablet 1000 MG PO ×2 (08:28→16:36)
[2024-11-11 15:24] VITALS: BMI 31.5
[2024-11-11 17:11] LABS: Bedside Glucose 128 mg/dL (74-106)
[2024-11-11 17:32] VITALS: BP 111/57; PULSE 77; RESP 17; TEMP 36.6; O2SAT 94
[2024-11-11 22:30] VITALS: PULSE 77; RESP 17; O2SAT 94
[2024-11-11] MEDS: Atorvastatin Calcium 40 MG Tablet PO (22:34)
[2024-11-11] MEDS: busPIRone 5 MG Tablet 10 MG PO (22:35)
[2024-11-11] MEDS: Insulin Glargine-YFGN 100 UNIT/ML Pen 34 UNIT SC (22:41)
[2024-11-11 22:50] VITALS: BMI 31.5
[2024-11-11 23:05] LABS: Bedside Glucose 120 mg/dL (74-106)
[2024-11-11] MEDS: Zolpidem Tartrate 5 MG Tablet PO (23:08)
[2024-11-12 06:00] VITALS: BP 120/65; PULSE 72; RESP 16; TEMP 36.6; O2SAT 96
[2024-11-12] MEDS: busPIRone 5 MG Tablet PO ×2 (06:13→13:19)
[2024-11-12] MEDS: Enoxaparin 40 MG/0.4 ML Syringe SC (06:13)
[2024-11-12 07:33] LABS: Bedside Glucose 117 mg/dL (74-106)
--- NOTE | 2024-11-12 08:38 | PCM.PROGNOTE ---
Subjective Subjective Nils was seen on team rounds today. Afebrile VSS - Maintaining appropriate oxygen saturation on RA Oral intake - FOOD good FLUIDS good Blood sugars are under excellent control with no hypoglycemia. Discussed with nursing - no problems that need addressed Reviewed the THERAPY notes Medication list reviewed. Slept OK last night. Went to sleep at about 11:30 and awoke about 3 but, went right back to sleep........does not feel that he slept as soundly as he was when taking Ambien 10 mg. Feels rested this AM. We discussed transitioning to a medication that is not a controlled substance. He is willing to try Trazodone. May no longer need the Buspar. Nils denies lightheadedness, vertigo, CP, SOB at rest, SOB with exertion, cough, nausea, vomiting, abd pain, diarrhea, constipation, dysuria, calf pain and ankle swelling. Objective Data Objective Data Vital Signs: Vital Signs Temp Pulse Resp BP Pulse Ox O2 Del Method 97.8 F 72 16 120/65 96 Room Air 11/12/24 06:00 11/12/24 06:00 11/12/24 06:00 11/12/24 06:00 11/12/24 06:00 11/12/24 06:00 Oxygen Delivery Method Room Air Weight: 201 lb 0.985 oz Body Mass Index (BMI) 31.5 Intake & Output: Intake and Output for Last 24 Hours 11/10/24 11/11/24 11/12/24 23:59 23:59 23:59 Intake Total 1600 / 1600 1870 / 1870 250 / 250 Output Total 1750 / 1750 1350 / 1350 300 / 300 Balance -150 / -150 520 / 520 -50 / -50 Lab / Micro Data 11/13/24 05:34 11/13/24 05:34 Labs: Laboratory Results - last 24 hr 11/11/24 16:38: POC Glucose 128 H 11/11/24 22:40: POC Glucose 120 H 11/12/24 07:13: POC Glucose 117 H Physical Exam Const alert, oriented x3 and no apparent distress Constitutional Narrative: Sitting in the recliner at the bedside. Remains very motivated to get better. Now realizing it will take months of OP therapy for him to have peak improvement. Making daily progress now and he is encouraged by this. General Appearance: cooperative HEENT head/scalp atraumatic Resp normal respiratory effort and clear to auscultation bilaterally Effort and Inspection: Negative for tachypneic Cardio regular rate, regular rhythm and no gallops Cardio Narrative: No ectopy GI normal to inspection, nondistended, normoactive bowel sounds, soft to palpation and non-tender Extremity no calf tenderness Extremity Narrative: No ankle edema. Mild edema of the R hand due to immobility. Skin General Skin Exam: no breakdown Rashes: no rashes Neuro Neuro Narrative: Mild facial droop persists. More movement in the RUE.....lou when he is rested. Fatigues with exertion and then the fingers of the R hand contract with increased tone. Able to stand pivot to the left now with a HW at [facility]. Less imbalance. Ambulated 97' yesterday with a HW at [facility]. He is able to weight shift top his left with HW to clear R foot and advvancwe the foot by himself now. Psych cooperative and affect normal Psych Narrative: calm, good eye contact. Appearance: appropriate Attitude: No agitated Assessment & Plan Assessment/Plan (1) Physical debility: (2) Acute CVA (cerebrovascular accident): (3) Hemiplegia affecting right dominant side: QUALIFIERS: Cerebrovascular disease type: cerebral infarction Hemiplegia etiology: late effect of cerebrovascular disease Hemiplegia type: flaccid Qualified Code(s): I69.351 - Hemiplegia and hemiparesis following cerebral infarction affecting right dominant side (4) Dysphagia: QUALIFIERS: Dysphagia type: oropharyngeal phase Qualified Code(s): R13.12 - Dysphagia, oropharyngeal phase (5) Dysarthria due to acute stroke: (6) Facial droop due to acute stroke: (7) Paresthesias: (8) HTN (hypertension): QUALIFIERS: Hypertension type: primary hypertension Qualified Code(s): I10 - Essential (primary) hypertension (9) Hyperlipidemia: QUALIFIERS: Hyperlipidemia type: mixed hyperlipidemia Qualified Code(s): E78.2 - Mixed hyperlipidemia (10) Diabetes mellitus type 2 with complications: (11) Obstructive sleep apnea: (12) Insomnia: QUALIFIERS: Insomnia type: unspecified Qualified Code(s): G47.00 - Insomnia, unspecified (13) Anxiety and depression: PLAN: Plan 1. Continue therapy - continue to make good progress. Only min assist now for toileting post BM. Walking longer distances and more stable with ambulation. He feels the AFO has helped a lot with the stability of the RLE. AFO for the RUE to prevent flexion contracture of the hand has been ordered. The fingers contract when he is tired. 2. BMP, magnesium and HH in a.m. 3. No changes to the drug regimen. 4. We discussed sleep aids. Will DC the Ambien and the Buspar at bedtime and start Trazodone 100 mg Q HS. May no longer need Buspar since he is taking 100 mg Sertraline and tolerating it well with no adverse side effects. Will continue BID and taper again in a few days. Charges/Coding Visit Charges Inpatient E&M: 07506 Subs Hosp L2
[2024-11-12] MEDS: Potassium Chloride Oral Tablet 10 MEQ PO (08:57)
[2024-11-12] MEDS: metFORMIN HCl 1,000 MG Tablet 1000 MG PO ×2 (08:57→16:32)
[2024-11-12] MEDS: Losartan Potassium 100 MG Tablet PO (08:57)
[2024-11-12] MEDS: Aspirin E.C. 81 MG Tablet PO (08:57)
[2024-11-12] MEDS: Sertraline 100 MG Tablet PO (08:57)
[2024-11-12] MEDS: Fenofibrate 145 MG Tablet PO (08:57)
[2024-11-12 12:46] VITALS: BMI 31.5
--- NOTE | 2024-11-12 12:51 | CASEMGMT ---
Social Work IDT met with patient, sister and niece for Team meeting. Discussed patient's progress in PT/OT/ST/SN. Educated to [employer] insurance with [employer] 11/16. W verified benefits with insurance and there is no max days for IRU, and the goal is to have pt DC home vs SNF. Family training went well this date, and have planned family training starting 11/17, to improve comfort level with homegoing. Pt will DC to sister's house with ramp. Pt and family very appreciative with staff and care. Pt requested hospital bed and skilled HHC at DC. SW to coordinate. Will ReTeam next week. Amisha Heath MACARONI PRESS OPERATOR RESEARCH NEUROPSYCHOLOGIST
[2024-11-12 18:00] VITALS: BP 126/60; PULSE 74; RESP 16; TEMP 36.6; O2SAT 95
[2024-11-12 22:00] VITALS: PULSE 72; RESP 16; O2SAT 96
[2024-11-12] MEDS: Senna/Docusate Sodium 1 Tablet 2 TABLET PO (23:06)
[2024-11-12] MEDS: Atorvastatin Calcium 40 MG Tablet PO (23:06)
[2024-11-12] MEDS: traZODone 100 MG Tablet PO (23:06)
[2024-11-12] MEDS: Insulin Glargine-YFGN 100 UNIT/ML Pen 34 UNIT SC (23:07)
[2024-11-12 23:08] LABS: Bedside Glucose 131 mg/dL (74-106)
[2024-11-12 23:43] VITALS: BMI 31.5
[2024-11-13 05:54] LABS: Hematocrit 40.6 % (40-54)
[2024-11-13 06:00] VITALS: BP 108/54; PULSE 79; RESP 16; TEMP 36.4; O2SAT 97
[2024-11-13] MEDS: Enoxaparin 40 MG/0.4 ML Syringe SC (06:33)
[2024-11-13 06:37] LABS: Anion Gap 12 (5-15); BUN 16 mg/dL (4-19); BUN/Creat Ratio 16.9 RATIO (10-20); Calcium,Total 9.7 mg/dL (7.6-11.0); Carbon Dioxide 26.3 mmol/L (21.0-32.0); Chloride 104 mmol/L (98-108); Creatinine, Serum 0.94 mg/dL (0.70-1.20); EST Glomerular Filtration Rate 90 (>60); Estimated Creatinine Clearance 83.95 ml/min (50-250); Glucose 148 mg/dL (70-99); Magnesium 2.1 mg/dL (1.5-2.2); Potassium 4.2 mmol/L (3.3-5.1); Sodium Level 142 mmol/L (133-145)
[2024-11-13 07:32] LABS: Bedside Glucose 144 mg/dL (74-106)
[2024-11-13] MEDS: busPIRone 5 MG Tablet PO ×2 (07:41→14:03)
[2024-11-13] MEDS: metFORMIN HCl 1,000 MG Tablet 1000 MG PO ×2 (09:02→17:17)
[2024-11-13] MEDS: Fenofibrate 145 MG Tablet PO (09:02)
[2024-11-13] MEDS: Losartan Potassium 100 MG Tablet PO (09:02)
[2024-11-13] MEDS: Sertraline 100 MG Tablet PO (09:02)
[2024-11-13] MEDS: Potassium Chloride Oral Tablet 10 MEQ PO (09:02)
[2024-11-13] MEDS: Aspirin E.C. 81 MG Tablet PO (09:02)
[2024-11-13 15:27] VITALS: BMI 31.5
[2024-11-13 17:51] VITALS: BP 112/58; PULSE 76; RESP 16; TEMP 36.6; O2SAT 98
[2024-11-13 22:00] VITALS: RESP 16
[2024-11-13] MEDS: traZODone 100 MG Tablet PO (22:03)
[2024-11-13] MEDS: Atorvastatin Calcium 40 MG Tablet PO (22:04)
[2024-11-13] MEDS: Insulin Glargine-YFGN 100 UNIT/ML Pen 34 UNIT SC (22:08)
[2024-11-13 22:53] LABS: Bedside Glucose 113 mg/dL (74-106)
[2024-11-14] MEDS: Enoxaparin 40 MG/0.4 ML Syringe SC (05:55)
[2024-11-14] MEDS: busPIRone 5 MG Tablet PO ×2 (05:55→13:58)
[2024-11-14 06:00] VITALS: BP 128/69; PULSE 75; RESP 16; TEMP 36.3; O2SAT 97
[2024-11-14 06:40] LABS: Bedside Glucose 114 mg/dL (74-106)
[2024-11-14] MEDS: Senna/Docusate Sodium 1 Tablet 2 TABLET PO ×2 (08:20→21:26)
[2024-11-14] MEDS: Sertraline 100 MG Tablet PO (08:20)
[2024-11-14] MEDS: Fenofibrate 145 MG Tablet PO (08:20)
[2024-11-14] MEDS: Losartan Potassium 100 MG Tablet PO (08:20)
[2024-11-14] MEDS: metFORMIN HCl 1,000 MG Tablet 1000 MG PO ×2 (08:20→16:31)
[2024-11-14] MEDS: Potassium Chloride Oral Tablet 10 MEQ PO (08:20)
[2024-11-14] MEDS: Aspirin E.C. 81 MG Tablet PO (08:21)
[2024-11-14 11:23] VITALS: BMI 31.5
[2024-11-14 17:42] VITALS: BP 131/59; PULSE 86; RESP 16; TEMP 36.6; O2SAT 94
[2024-11-14 21:26] VITALS: BMI 31.5
[2024-11-14] MEDS: Atorvastatin Calcium 40 MG Tablet PO (21:26)
[2024-11-14] MEDS: traZODone 50 MG Tablet 150 MG PO (21:26)
[2024-11-14] MEDS: Insulin Glargine-YFGN 100 UNIT/ML Pen 34 UNIT SC (21:27)
[2024-11-14 22:48] LABS: Bedside Glucose 147 mg/dL (74-106)
[2024-11-15 06:00] VITALS: BP 114/64; PULSE 70; RESP 15; TEMP 36.6; O2SAT 94
[2024-11-15] MEDS: busPIRone 5 MG Tablet PO ×2 (06:16→13:07)
[2024-11-15] MEDS: Enoxaparin 40 MG/0.4 ML Syringe SC (06:17)
[2024-11-15] MEDS: Aspirin E.C. 81 MG Tablet PO (08:54)
[2024-11-15] MEDS: Senna/Docusate Sodium 1 Tablet 2 TABLET PO ×2 (08:54→22:00)
[2024-11-15] MEDS: metFORMIN HCl 1,000 MG Tablet 1000 MG PO ×2 (08:54→17:20)
[2024-11-15] MEDS: Potassium Chloride Oral Tablet 10 MEQ PO (08:54)
[2024-11-15] MEDS: Fenofibrate 145 MG Tablet PO (08:54)
[2024-11-15] MEDS: Losartan Potassium 100 MG Tablet PO (08:54)
[2024-11-15] MEDS: Sertraline 100 MG Tablet PO (08:54)
[2024-11-15 13:27] VITALS: BMI 31.5
[2024-11-15 17:41] VITALS: BP 113/55; PULSE 69; RESP 16; TEMP 36.2; O2SAT 96
[2024-11-15] MEDS: Atorvastatin Calcium 40 MG Tablet PO (22:00)
[2024-11-15] MEDS: Insulin Glargine-YFGN 100 UNIT/ML Pen 34 UNIT SC (22:05)
[2024-11-15 22:30] LABS: Bedside Glucose 102 mg/dL (74-106)
[2024-11-15] MEDS: traZODone 50 MG Tablet 150 MG PO (22:56)
[2024-11-16] MEDS: busPIRone 5 MG Tablet PO (06:04)
[2024-11-16] MEDS: Enoxaparin 40 MG/0.4 ML Syringe SC (06:04)
[2024-11-16 06:08] VITALS: BP 106/46; PULSE 69; RESP 14; TEMP 36.6; O2SAT 94
[2024-11-16 08:12] VITALS: BP 109/51; PULSE 73
[2024-11-16] MEDS: Sertraline 100 MG Tablet PO (08:13)
[2024-11-16] MEDS: Fenofibrate 145 MG Tablet PO (08:13)
[2024-11-16] MEDS: Losartan Potassium 100 MG Tablet PO (08:13)
[2024-11-16] MEDS: Potassium Chloride Oral Tablet 10 MEQ PO (08:14)
[2024-11-16] MEDS: Aspirin E.C. 81 MG Tablet PO (08:14)
[2024-11-16] MEDS: metFORMIN HCl 1,000 MG Tablet 1000 MG PO ×2 (08:14→17:38)
[2024-11-16] MEDS: Senna/Docusate Sodium 1 Tablet 2 TABLET PO ×2 (08:14→22:47)
--- NOTE | 2024-11-16 08:32 | PCM.PROGNOTE ---
Subjective Subjective Afebrile VSS -blood pressure is within goal and he denies any lightheadedness. Maintaining appropriate oxygen saturation on RA Oral intake - FOOD good FLUIDS good Discussed with nursing - no problems that need addressed. slept well last night with the increase in Trazodone to 150 mg Q HS. Reviewed the THERAPY notes Medication list reviewed. Nils is complaining of some chest congestion in the upper anterior chest. He attributes this to allergies. He gets monthly injections and is on loratadine as an outpatient. Denies cough and also denies rhinorrhea. No chest pain. Denies lightheadedness, cephalgia, palpitations, chest pain, calf pain and dysuria. Tells me he is sleeping well with the increase in the trazodone. Objective Data Objective Data Vital Signs: Vital Signs Temp Pulse Resp BP Pulse Ox O2 Del Method 97.9 F 73 14 109/51 L 94 Room Air 11/16/24 06:08 11/16/24 08:12 11/16/24 06:08 11/16/24 08:12 11/16/24 06:08 11/16/24 06:08 Oxygen Delivery Method Room Air Weight: 201 lb 0.985 oz Body Mass Index (BMI) 31.5 Intake & Output: Intake and Output for Last 24 Hours 11/14/24 11/16/24 11/16/24 23:59 00:59 23:59 Intake Total 1000 / 1125 1385 / 1535 300 / 300 Output Total 900 / 1025 1100 / 1275 400 / 400 Balance 100 / 100 285 / 260 -100 / -100 Lab / Micro Data 11/13/24 05:34 11/13/24 05:34 Labs: Laboratory Results - last 24 hr 11/15/24 22:04: POC Glucose 102 Physical Exam Const alert, oriented x3 and no apparent distress General Appearance: cooperative Resp clear to auscultation bilaterally Resp Narrative: No cough with deep breathing. Not tachypneic and no conversational dyspnea. Cardio regular rate and regular rhythm Cardio Narrative: No ectopy, GI normal to inspection, nondistended, normoactive bowel sounds, soft to palpation and non-tender Extremity no calf tenderness Extremity Narrative: No edema of the R thigh. No pain in the RUE. General Extremity: Negative for edema Skin General Skin Exam: no breakdown Rashes: no rashes Neuro Neuro Narrative: The R eye has some lid lag but, he is able to close the eye tightly. He always appears to be wide eyed on the R side. Strength on the R side continues to improve. Psych Psych Narrative: no sign anxiety. Sleeping well with Trazodone at 150 mg Q HS. Not restless. Good appetite. Motivated to keep doing therapy so that he can go home to his sisters at [place] rather to an SNF. I think he may be able to accomplish this by the end of the week. Assessment & Plan Assessment/Plan (1) Physical debility: (2) Acute CVA (cerebrovascular accident): (3) Hemiplegia affecting right dominant side: QUALIFIERS: Hemiplegia type: flaccid Hemiplegia etiology: late effect of cerebrovascular disease Cerebrovascular disease type: cerebral infarction Qualified Code(s): I69.351 - Hemiplegia and hemiparesis following cerebral infarction affecting right dominant side (4) Dysphagia: QUALIFIERS: Dysphagia type: oropharyngeal phase Qualified Code(s): R13.12 - Dysphagia, oropharyngeal phase (5) Dysarthria due to acute stroke: (6) Facial droop due to acute stroke: (7) Paresthesias: (8) HTN (hypertension): QUALIFIERS: Hypertension type: primary hypertension Qualified Code(s): I10 - Essential (primary) hypertension (9) Hyperlipidemia: QUALIFIERS: Hyperlipidemia type: mixed hyperlipidemia Qualified Code(s): E78.2 - Mixed hyperlipidemia (10) Diabetes mellitus type 2 with complications: (11) Obstructive sleep apnea: (12) Insomnia: QUALIFIERS: Insomnia type: unspecified Qualified Code(s): G47.00 - Insomnia, unspecified (13) Anxiety and depression: (14) Environmental and seasonal allergies: PLAN: Plan 1. Continue therapy 2. Start loratadine 10 mg p.o. daily 3. burning in the R thigh is tolerable. We discussed that I suspect the pain is neuropathic and likely related to the stroke. I told him if it gets worse and he is bothered by it we could start Gabapentin. 4. Decrease the Buspar to once a day in the AM. Would like to DC this prior to DC. 5. Sister and niece will be coming in for family training this week......potential DC to his sisters house the end of the week. Recommend OP therapy at [place]. Charges/Coding Visit Charges Inpatient E&M: 48180 Subs Hosp L1
[2024-11-16 11:32] VITALS: BMI 31.5
[2024-11-16] MEDS: Loratadine 10 MG Tablet PO (12:02)
[2024-11-16 18:00] VITALS: BP 136/58; PULSE 65; RESP 16; TEMP 35.7; O2SAT 93
[2024-11-16 20:22] VITALS: BMI 31.5
[2024-11-16 22:00] VITALS: PULSE 65; RESP 16
[2024-11-16] MEDS: traZODone 50 MG Tablet 150 MG PO (22:47)
[2024-11-16] MEDS: Atorvastatin Calcium 40 MG Tablet PO (22:47)
[2024-11-16] MEDS: Insulin Glargine-YFGN 100 UNIT/ML Pen 34 UNIT SC (22:51)
[2024-11-17 00:15] LABS: Bedside Glucose 106 mg/dL (74-106)
[2024-11-17 06:00] VITALS: BP 92/52; PULSE 68; RESP 16; TEMP 36.4; O2SAT 96
[2024-11-17] MEDS: Enoxaparin 40 MG/0.4 ML Syringe SC (06:29)
[2024-11-17] MEDS: busPIRone 5 MG Tablet PO (06:29)
[2024-11-17 07:59] LABS: Bedside Glucose 129 mg/dL (74-106)
[2024-11-17] MEDS: metFORMIN HCl 1,000 MG Tablet 1000 MG PO ×2 (09:13→18:17)
[2024-11-17] MEDS: Fenofibrate 145 MG Tablet PO (09:13)
[2024-11-17] MEDS: Losartan Potassium 100 MG Tablet PO (09:13)
[2024-11-17] MEDS: Sertraline 100 MG Tablet PO (09:13)
[2024-11-17] MEDS: Potassium Chloride Oral Tablet 10 MEQ PO (09:13)
[2024-11-17] MEDS: Aspirin E.C. 81 MG Tablet PO (09:13)
[2024-11-17] MEDS: Loratadine 10 MG Tablet PO (09:13)
[2024-11-17] MEDS: Senna/Docusate Sodium 1 Tablet 2 TABLET PO ×2 (09:13→22:14)
--- NOTE | 2024-11-17 10:49 | PCM.PROGNOTE ---
Subjective Subjective Afebrile VSS - Maintaining appropriate oxygen saturation on RA Oral intake - FOOD good FLUIDS good Blood sugars are under excellent control with no hypoglycemia. Weight is down 7 pounds since admission to rehab. Discussed with nursing - no problems that need addressed Reviewed the THERAPY notes Medication list reviewed. Nils denies lightheadedness, vertigo, CP, SOB at rest, SOB with exertion, cough, nausea, vomiting, abd pain, diarrhea, constipation, dysuria, calf pain and ankle swelling. Objective Data Objective Data Vital Signs: Vital Signs Temp Pulse Resp BP Pulse Ox O2 Del Method 97.5 F L 68 16 92/52 L 96 Room Air 11/17/24 06:00 11/17/24 06:00 11/17/24 06:00 11/17/24 06:00 11/17/24 06:00 11/17/24 06:00 Oxygen Delivery Method Room Air Weight: 201 lb 0.985 oz Body Mass Index (BMI) 31.5 Intake & Output: Intake and Output for Last 24 Hours 11/16/24 11/16/24 11/17/24 00:59 23:59 23:59 Intake Total 1385 / 1535 1670 / 1670 240 / 240 Output Total 1100 / 1275 1750 / 1750 Balance 285 / 260 -80 / -80 240 / 240 Lab / Micro Data 11/13/24 05:34 11/13/24 05:34 Labs: Laboratory Results - last 24 hr 11/16/24 22:51: POC Glucose 106 11/17/24 06:26: POC Glucose 129 H Physical Exam Const alert, oriented x3 and no apparent distress General Appearance: cooperative Resp clear to auscultation bilaterally Resp Narrative: No cough with deep breathing. Not tachypneic and no conversational dyspnea. Cardio regular rate and regular rhythm Cardio Narrative: No ectopy, GI normal to inspection, nondistended, normoactive bowel sounds, soft to palpation and non-tender Extremity no calf tenderness General Extremity: Negative for edema Skin General Skin Exam: no breakdown Rashes: no rashes Assessment & Plan Assessment/Plan (1) Physical debility: (2) Acute CVA (cerebrovascular accident): (3) Hemiplegia affecting right dominant side: QUALIFIERS: Hemiplegia type: flaccid Hemiplegia etiology: late effect of cerebrovascular disease Cerebrovascular disease type: cerebral infarction Qualified Code(s): I69.351 - Hemiplegia and hemiparesis following cerebral infarction affecting right dominant side (4) Dysphagia: QUALIFIERS: Dysphagia type: oropharyngeal phase Qualified Code(s): R13.12 - Dysphagia, oropharyngeal phase (5) Dysarthria due to acute stroke: (6) Facial droop due to acute stroke: (7) Paresthesias: (8) HTN (hypertension): QUALIFIERS: Hypertension type: primary hypertension Qualified Code(s): I10 - Essential (primary) hypertension (9) Hyperlipidemia: QUALIFIERS: Hyperlipidemia type: mixed hyperlipidemia Qualified Code(s): E78.2 - Mixed hyperlipidemia (10) Diabetes mellitus type 2 with complications: (11) Obstructive sleep apnea: PLAN: Plan 1. Continue therapy 2. Recheck BP again today. May be able to decrease the dose of the Cozaar. Charges/Coding Visit Charges Inpatient E&M: 21513 Subs Hosp L1
[2024-11-17 13:40] VITALS: BMI 31.5
[2024-11-17 18:00] VITALS: BP 112/52; PULSE 71; RESP 17; TEMP 36.8; O2SAT 94
[2024-11-17 20:38] VITALS: BMI 31.5
[2024-11-17 22:00] VITALS: PULSE 71; RESP 16; O2SAT 94
[2024-11-17] MEDS: Atorvastatin Calcium 40 MG Tablet PO (22:14)
[2024-11-17] MEDS: Insulin Glargine-YFGN 100 UNIT/ML Pen 34 UNIT SC (22:14)
[2024-11-17 22:46] LABS: Bedside Glucose 102 mg/dL (74-106)
[2024-11-17] MEDS: traZODone 50 MG Tablet 150 MG PO (23:00)
[2024-11-18 06:00] VITALS: BP 92/48; PULSE 68; RESP 16; TEMP 36.7; O2SAT 96; BMI 31.6
[2024-11-18] MEDS: Enoxaparin 40 MG/0.4 ML Syringe SC (06:35)
[2024-11-18] MEDS: busPIRone 5 MG Tablet PO (06:36)
[2024-11-18] MEDS: metFORMIN HCl 1,000 MG Tablet 1000 MG PO ×2 (08:09→16:51)
[2024-11-18] MEDS: Fenofibrate 145 MG Tablet PO (08:09)
[2024-11-18] MEDS: Aspirin E.C. 81 MG Tablet PO (08:09)
[2024-11-18] MEDS: Potassium Chloride Oral Tablet 10 MEQ PO (08:09)
[2024-11-18] MEDS: Loratadine 10 MG Tablet PO (08:09)
[2024-11-18] MEDS: Sertraline 100 MG Tablet PO (08:09)
[2024-11-18] MEDS: Senna/Docusate Sodium 1 Tablet 2 TABLET PO ×2 (08:09→21:23)
[2024-11-18] MEDS: Losartan Potassium 100 MG Tablet PO (08:09)
[2024-11-18 13:41] VITALS: BP 130/61; PULSE 60
[2024-11-18 14:09] VITALS: BMI 31.6
[2024-11-18 18:00] VITALS: BP 109/59; PULSE 82; RESP 16; TEMP 36.4; O2SAT 97
[2024-11-18] MEDS: Atorvastatin Calcium 40 MG Tablet PO (21:23)
[2024-11-18] MEDS: Insulin Glargine-YFGN 100 UNIT/ML Pen 34 UNIT SC (21:26)
[2024-11-18 22:12] LABS: Bedside Glucose 110 mg/dL (74-106)
[2024-11-18] MEDS: traZODone 50 MG Tablet 150 MG PO (23:03)
[2024-11-19] MEDS: Enoxaparin 40 MG/0.4 ML Syringe SC (05:57)
[2024-11-19] MEDS: busPIRone 5 MG Tablet PO (05:57)
[2024-11-19 06:00] VITALS: BP 118/60; PULSE 74; RESP 16; TEMP 36.7; O2SAT 96
[2024-11-19] MEDS: metFORMIN HCl 1,000 MG Tablet 1000 MG PO ×2 (09:42→16:15)
[2024-11-19] MEDS: Potassium Chloride Oral Tablet 10 MEQ PO (09:42)
[2024-11-19] MEDS: Sertraline 100 MG Tablet PO (09:42)
[2024-11-19] MEDS: Losartan Potassium 50 MG Tablet PO (09:42)
[2024-11-19] MEDS: Fenofibrate 145 MG Tablet PO (09:42)
[2024-11-19] MEDS: Aspirin E.C. 81 MG Tablet PO (09:42)
[2024-11-19] MEDS: Senna/Docusate Sodium 1 Tablet 2 TABLET PO ×2 (09:43→21:14)
[2024-11-19] MEDS: Loratadine 10 MG Tablet PO (09:43)
--- NOTE | 2024-11-19 11:14 | PN_ITS ---
Subjective Subjective Nils was seen on team rounds. Family was present in the room. Afebrile VSS - Maintaining appropriate oxygen saturation on RA Oral intake - FOOD good FLUIDS fair......outputs exceed intake......njot sure the I&O's are correct.......In suspect he drinks more than is recorded. Blood sugars remain well-controlled. Weight has been stable over the past week. Discussed with nursing - no problems that need addressed. Sleeping well at night. Reviewed the THERAPY notes Medication list reviewed. Denies headache, lightheadedness, sore throat, cough, rhinitis, chest pain, shortness of breath, dysuria and calf tenderness. He continues to c/o R thigh/hip pain.......he tells me thigh pain and this is what I examined. Therapy is saying hip pain but, he denies groin pain.......he has not c/o this until recently. He and I discussed the possibility that this may be due to central neuropathic pain and I suggested a trial of low dose Gabapentin........he did not want to do this........he prefers Tylenol. He also tells me that he has had sciatica in the left leg in the past. Objective Data Objective Data Vital Signs: Vital Signs Temp Pulse Resp BP Pulse Ox O2 Del Method 98.0 F 74 16 118/60 96 Room Air 11/19/24 06:00 11/19/24 06:00 11/19/24 06:00 11/19/24 06:00 11/19/24 06:00 11/19/24 06:00 Oxygen Delivery Method Room Air Weight: 201 lb 15.095 oz Body Mass Index (BMI) 31.6 Intake & Output: Intake and Output for Last 24 Hours 11/17/24 11/18/24 11/19/24 23:59 23:59 23:59 Intake Total 1310 / 1310 1100 / 1100 240 / 240 Output Total 830 / 830 930 / 1530 1450 / 1450 Balance 480 / 480 170 / -430 -1210 / -1210 Lab / Micro Data 11/13/24 05:34 11/13/24 05:34 Labs: Laboratory Results - last 24 hr 11/18/24 21:26: POC Glucose 110 H Physical Exam Const alert, oriented x3 and no apparent distress General Appearance: cooperative Resp clear to auscultation bilaterally Resp Narrative: No cough with deep breathing. Not tachypneic and no conversational dyspnea. Cardio regular rate and regular rhythm Cardio Narrative: No ectopy, GI normal to inspection, nondistended, normoactive bowel sounds, soft to palpation and non-tender Extremity no calf tenderness Extremity Narrative: No pain with palpation of the R thigh and there is no erythema or swelling. Negative SLR. General Extremity: Negative for edema Skin General Skin Exam: no breakdown Rashes: no rashes Psych Psych Narrative: Sleeping well at night. He has tolerated weaning down the Buspar to 5 mg once a day in the AM with no complaints. When I mentioned I was going to discontinue he was unaware that he was not getting it 3 X's a day and promptly said he is more anxious. I recommended follow up with behavioral health post DC and he is open to this. Assessment & Plan Assessment/Plan (1) Physical debility: (2) Acute CVA (cerebrovascular accident): (3) Hemiplegia affecting right dominant side: QUALIFIERS: Hemiplegia type: flaccid Hemiplegia etiology: late effect of cerebrovascular disease Cerebrovascular disease type: cerebral infarction Qualified Code(s): I69.351 - Hemiplegia and hemiparesis following cerebral infarction affecting right dominant side (4) Dysphagia: QUALIFIERS: Dysphagia type: oropharyngeal phase Qualified Code(s): R13.12 - Dysphagia, oropharyngeal phase (5) Dysarthria due to acute stroke: (6) Facial droop due to acute stroke: (7) Paresthesias: (8) HTN (hypertension): QUALIFIERS: Hypertension type: primary hypertension Qualified Code(s): I10 - Essential (primary) hypertension (9) Hyperlipidemia: QUALIFIERS: Hyperlipidemia type: mixed hyperlipidemia Qualified Code(s): E78.2 - Mixed hyperlipidemia (10) Diabetes mellitus type 2 with complications: (11) Obstructive sleep apnea: PLAN: Plan 1. Continue therapy 2. Check blood pressure more frequently for the next 48 hours due to decreasing the dosage of the Cozaar for low blood pressure. 3. Check a few more postvoid residuals since he is now on trazodone 150 mg at bedtime to help him sleep and this is known to cause urine retention and some. 4. Discontinue BuSpar. 5. We have agreed on a DC date of Sat. Nils feels he will be ready then. Sister and niece will be in again next week for additional family training. 6. Nursing will schedule an appt with [facility] for PCP and with Dr. Cruz or Dr. Schofield from neurology. Will also schedule an appt with Dr. Fleming/behavioral health The patient is confined to one floor of the house and there is a BR but, it is small and not easy to access. He also needs an elevated toilet. Will need a BSC at [place]. The patient requires a hospital bed due to needing frequent changes in position, to alleviate pain and to prevent ongoing pressure areas that is not feasible in an ordinary bed. Related to Dx of ischemic CVA with right hemiplegia/hemiparesis. The patient is unsafe to use a cane and requires a hemiwalker for ambulation in the home and the community. He uses [facility]. SW will arrange for DME and also HHC for PT/OT/ST/SN/SW. Charges/Coding Visit Charges Inpatient E&M: 44837 Subs Hosp L2
[2024-11-19 11:48] VITALS: BMI 31.6
--- NOTE | 2024-11-19 12:46 | CASEMGMT ---
Addendum entered by Amisha Heath 11/25/24 11:46: [employer] contacted pt about delivery for DME and pt denied a hemiwalker, stating he has one available to him. Addendum entered by Amisha Heath 11/19/24 13:42: Pt also needs a hemiwalker. SW referred to [facility] agencies and [employer] for DME. Original Note: Social Work IDT met with patient, sister and niece for Team meeting. Discussed patient's progress in PT/OT/ST/SN. Educated to [place] [employer] insurance with [employer] 11/23. Pt has progressed well and IDT is ready to set DC date. Pt/family in agreement. SW offered date to set. All in agreement to DC 11/25. SW to coordinate skilled [facility] PT/OT/ST/SN/YOON/SW, hospital bed and 3-in-1 commode. SW to search for INN providers and offer options to pt. Sister to transport. Scheduled additional training with sister. Pt is getting established with a new PCP. SW educated that pt may have delay in HHC until he has first appt with PCP. The PCP's office will decide once they communicate with C agency. Plan: DC to sister's house 11/25, [facility] PT/OT/ST/SN/YOON/SW, hospital bed, 3-in-1 commode Amisha Heath ASSOCIATE PROGRAM MANAGER BULBS FARMWORKER
[2024-11-19 14:00] VITALS: BP 122/59; PULSE 82
[2024-11-19 17:55] VITALS: BP 109/60; PULSE 76; RESP 16; TEMP 36.4; O2SAT 97
[2024-11-19] MEDS: Atorvastatin Calcium 40 MG Tablet PO (21:14)
[2024-11-19] MEDS: Insulin Glargine-YFGN 100 UNIT/ML Pen 34 UNIT SC (21:16)
[2024-11-19 21:36] LABS: Bedside Glucose 111 mg/dL (74-106)
[2024-11-19] MEDS: traZODone 50 MG Tablet 150 MG PO (22:59)
[2024-11-20] MEDS: Enoxaparin 40 MG/0.4 ML Syringe SC (05:07)
[2024-11-20 06:00] VITALS: BP 128/60; PULSE 71; RESP 18; TEMP 36.6; O2SAT 95
[2024-11-20] MEDS: Senna/Docusate Sodium 1 Tablet 2 TABLET PO ×2 (08:14→22:22)
[2024-11-20] MEDS: Losartan Potassium 50 MG Tablet PO (08:14)
[2024-11-20] MEDS: Aspirin E.C. 81 MG Tablet PO (08:14)
[2024-11-20] MEDS: Loratadine 10 MG Tablet PO (08:14)
[2024-11-20] MEDS: metFORMIN HCl 1,000 MG Tablet 1000 MG PO ×2 (08:14→17:13)
[2024-11-20] MEDS: Fenofibrate 145 MG Tablet PO (08:14)
[2024-11-20] MEDS: Sertraline 100 MG Tablet PO (08:14)
[2024-11-20] MEDS: Potassium Chloride Oral Tablet 10 MEQ PO (08:14)
[2024-11-20 10:48] VITALS: BMI 31.6
[2024-11-20 14:00] VITALS: BP 110/60; PULSE 83
[2024-11-20] MEDS: Acetaminophen 325 MG Tablet 650 MG PO ×2 (17:14→23:32)
[2024-11-20 18:00] VITALS: BP 113/56; PULSE 81; RESP 16; TEMP 36.7; O2SAT 96
--- NOTE | 2024-11-20 18:39 | PCM.PROGNOTE ---
Subjective Subjective Afebrile The blood pressure is better with the decreasing Cozaar to 50 mg daily. The blood pressure remains within goal. Blood sugars are under excellent control. Postvoid residuals x 2 have been 54 and 185. Sleeping well at night. Good appetite and fluid intake. Cooperative with therapy and making good progress He has no complaints today. Denies lightheadedness, cephalgia, chest pain, shortness of breath, palpitations, calf pain and dysuria. Alert, oriented x 3, no apparent distress Lungs-clear to auscultation Heart-regular rate and rhythm Some edema of the right upper extremity especially in the hand but no ankle edema. Abdomen-soft, nondistended, nontender to palpation, bowel sounds present. Objective Data Objective Data Vital Signs: Vital Signs Temp Pulse Resp BP Pulse Ox O2 Del Method 97.9 F 83 18 110/60 95 CPAP 11/20/24 06:00 11/20/24 14:00 11/20/24 06:00 11/20/24 14:00 11/20/24 06:00 11/20/24 06:00 Oxygen Delivery Method CPAP Weight: 201 lb 15.095 oz Body Mass Index (BMI) 31.6 Intake & Output: Intake and Output for Last 24 Hours 11/18/24 11/19/24 11/20/24 23:59 23:59 23:59 Intake Total 1100 / 1100 720 / 720 720 / 720 Output Total 930 / 1530 1750 / 1750 800 / 800 Balance 170 / -430 -1030 / -1030 -80 / -80 Lab / Micro Data 11/13/24 05:34 11/13/24 05:34 Labs: Laboratory Results - last 24 hr 11/19/24 21:15: POC Glucose 111 H Assessment & Plan Assessment/Plan (1) Physical debility: (2) Acute CVA (cerebrovascular accident): (3) Hemiplegia affecting right dominant side: QUALIFIERS: Hemiplegia type: flaccid Hemiplegia etiology: late effect of cerebrovascular disease Cerebrovascular disease type: cerebral infarction Qualified Code(s): I69.351 - Hemiplegia and hemiparesis following cerebral infarction affecting right dominant side (4) Dysphagia: QUALIFIERS: Dysphagia type: oropharyngeal phase Qualified Code(s): R13.12 - Dysphagia, oropharyngeal phase (5) Dysarthria due to acute stroke: (6) Facial droop due to acute stroke: (7) Paresthesias: (8) HTN (hypertension): QUALIFIERS: Hypertension type: primary hypertension Qualified Code(s): I10 - Essential (primary) hypertension (9) Hyperlipidemia: QUALIFIERS: Hyperlipidemia type: mixed hyperlipidemia Qualified Code(s): E78.2 - Mixed hyperlipidemia (10) Diabetes mellitus type 2 with complications: (11) Obstructive sleep apnea: PLAN: Plan 1. Continue therapy 2. Plan discharge for next Saturday. Will be going home with his sister and home health care. Charges/Coding Visit Charges Inpatient E&M: 11997 Subs Hosp L1
[2024-11-20] MEDS: Insulin Glargine-YFGN 100 UNIT/ML Pen 34 UNIT SC (22:20)
[2024-11-20] MEDS: Atorvastatin Calcium 40 MG Tablet PO (22:22)
[2024-11-20 22:47] VITALS: BP 104/53; PULSE 75; RESP 18; TEMP 36.6; O2SAT 96
[2024-11-20] MEDS: traZODone 50 MG Tablet 150 MG PO (22:53)
[2024-11-20 22:58] LABS: Bedside Glucose 104 mg/dL (74-106)
[2024-11-21 01:23] VITALS: BMI 31.6
[2024-11-21 06:00] VITALS: BP 101/50; PULSE 68; RESP 15; TEMP 36.6; O2SAT 94
[2024-11-21] MEDS: Enoxaparin 40 MG/0.4 ML Syringe SC (07:02)
[2024-11-21] MEDS: Loratadine 10 MG Tablet PO (08:14)
[2024-11-21] MEDS: Losartan Potassium 50 MG Tablet PO (08:14)
[2024-11-21] MEDS: Aspirin E.C. 81 MG Tablet PO (08:14)
[2024-11-21] MEDS: Potassium Chloride Oral Tablet 10 MEQ PO (08:14)
[2024-11-21] MEDS: Sertraline 100 MG Tablet PO (08:15)
[2024-11-21] MEDS: Senna/Docusate Sodium 1 Tablet 2 TABLET PO ×2 (08:15→23:15)
[2024-11-21] MEDS: metFORMIN HCl 1,000 MG Tablet 1000 MG PO ×2 (08:15→17:07)
[2024-11-21] MEDS: Fenofibrate 145 MG Tablet PO (08:15)
[2024-11-21 08:30] VITALS: BP 104/57
[2024-11-21 13:52] VITALS: BMI 31.6
[2024-11-21 14:00] VITALS: BP 98/60
[2024-11-21 18:00] VITALS: BP 105/56; PULSE 72; RESP 16; TEMP 36.9; O2SAT 95
[2024-11-21 22:50] LABS: Bedside Glucose 112 mg/dL (74-106)
[2024-11-21] MEDS: traZODone 50 MG Tablet 150 MG PO (23:14)
[2024-11-21] MEDS: Insulin Glargine-YFGN 100 UNIT/ML Pen 34 UNIT SC (23:15)
[2024-11-21] MEDS: Atorvastatin Calcium 40 MG Tablet PO (23:15)
[2024-11-21 23:20] VITALS: BP 122/58; PULSE 72
[2024-11-22 01:34] VITALS: BMI 31.6
[2024-11-22] MEDS: Enoxaparin 40 MG/0.4 ML Syringe SC (06:29)
[2024-11-22 06:33] VITALS: BP 104/53; PULSE 72; RESP 16; TEMP 36.9; O2SAT 94
[2024-11-22] MEDS: Aspirin E.C. 81 MG Tablet PO (08:25)
[2024-11-22] MEDS: Senna/Docusate Sodium 1 Tablet 2 TABLET PO ×2 (08:25→22:49)
[2024-11-22] MEDS: Losartan Potassium 50 MG Tablet PO (08:25)
[2024-11-22] MEDS: metFORMIN HCl 1,000 MG Tablet 1000 MG PO ×2 (08:25→16:42)
[2024-11-22] MEDS: Fenofibrate 145 MG Tablet PO (08:25)
[2024-11-22] MEDS: Potassium Chloride Oral Tablet 10 MEQ PO (08:26)
[2024-11-22] MEDS: Loratadine 10 MG Tablet PO (08:26)
[2024-11-22] MEDS: Sertraline 100 MG Tablet PO (08:26)
[2024-11-22 08:27] VITALS: BP 116/50; PULSE 68
[2024-11-22 13:00] VITALS: BP 113/58; PULSE 65
[2024-11-22 15:00] VITALS: BMI 31.6
[2024-11-22 18:00] VITALS: BP 105/59; PULSE 73; RESP 17; TEMP 36.8; O2SAT 93
[2024-11-22] MEDS: traZODone 50 MG Tablet 150 MG PO (22:48)
[2024-11-22] MEDS: Atorvastatin Calcium 40 MG Tablet PO (22:49)
[2024-11-22] MEDS: Insulin Glargine-YFGN 100 UNIT/ML Pen 34 UNIT SC (22:54)
[2024-11-22 23:40] VITALS: BMI 31.6
[2024-11-23 00:06] LABS: Bedside Glucose 102 mg/dL (74-106)
[2024-11-23 06:50] VITALS: BP 104/51; PULSE 67; RESP 15; TEMP 36.6; O2SAT 96
[2024-11-23] MEDS: Enoxaparin 40 MG/0.4 ML Syringe SC (06:53)
[2024-11-23 07:28] LABS: Bedside Glucose 102 mg/dL (74-106)
[2024-11-23] MEDS: Aspirin E.C. 81 MG Tablet PO (08:40)
[2024-11-23] MEDS: Fenofibrate 145 MG Tablet PO (08:40)
[2024-11-23] MEDS: Losartan Potassium 50 MG Tablet PO (08:40)
[2024-11-23] MEDS: metFORMIN HCl 1,000 MG Tablet 1000 MG PO ×2 (08:40→16:22)
[2024-11-23] MEDS: Sertraline 100 MG Tablet PO (08:40)
[2024-11-23] MEDS: Potassium Chloride Oral Tablet 10 MEQ PO (08:40)
[2024-11-23] MEDS: Loratadine 10 MG Tablet PO (08:40)
[2024-11-23] MEDS: Senna/Docusate Sodium 1 Tablet 2 TABLET PO ×2 (08:41→22:01)
--- NOTE | 2024-11-23 11:08 | PCM.PROGNOTE ---
Subjective Subjective Afebrile VSS -blood pressure remains within goal on 50 mg of losartan daily. Heart rate is within normal limits. Maintaining appropriate oxygen saturation on RA-93 to 96%. Oral intake - FOOD good FLUIDS good Blood sugars are under excellent control with no hypoglycemia Discussed with nursing - no problems that need addressed Reviewed the THERAPY notes Medication list reviewed. Continues to complain of low back pain. Denies radiation into his legs. The pain is worst with weightbearing. He took 2 doses of Tylenol 650 mg on Saturday but has not had any since. He wanted to know if he could DC the antihypertensive since his BP's are good. I explained that he has a hx of HTN and this was uncontrolled at presentation to the hospital. I also explained that BP fluctuates and frequently increases with stress. He is in a stress free environment now.......this is likely to change when he goes home to his sisters house. He also asked if he could continue to smoke cigars.....since he does not inhale. I suggested he avoid even second hand smoke and recommended he not smoke at all. Objective Data Objective Data Vital Signs: Vital Signs Temp Pulse Resp BP Pulse Ox O2 Del Method 97.9 F 67 15 104/51 L 96 Room Air 11/23/24 06:50 11/23/24 06:50 11/23/24 06:50 11/23/24 06:50 11/23/24 06:50 11/23/24 06:50 Oxygen Delivery Method Room Air Weight: 201 lb 15.095 oz Body Mass Index (BMI) 31.6 Intake & Output: Intake and Output for Last 24 Hours 11/21/24 11/22/24 11/23/24 23:59 23:59 23:59 Intake Total 1500 / 1500 1900 / 1900 660 / 660 Output Total 1350 / 1350 1550 / 1550 300 / 300 Balance 150 / 150 350 / 350 360 / 360 Lab / Micro Data 11/24/24 05:15 11/24/24 05:15 Labs: Laboratory Results - last 24 hr 11/22/24 22:53: POC Glucose 102 11/23/24 06:59: POC Glucose 102 Physical Exam Const alert, oriented x3 and no apparent distress General Appearance: cooperative Resp clear to auscultation bilaterally Resp Narrative: No cough with deep breathing. Not tachypneic and no conversational dyspnea. Cardio regular rate and regular rhythm Cardio Narrative: No ectopy, GI normal to inspection, nondistended, normoactive bowel sounds, soft to palpation and non-tender Extremity no calf tenderness Extremity Narrative: No pain with palpation of the R thigh and there is no erythema or swelling. Negative SLR. General Extremity: Negative for edema Skin General Skin Exam: no breakdown Rashes: no rashes Psych cooperative Psych Narrative: Very pleasant. Sleeping well at night. Good appetite. Does not seem anxious or depressed. Appearance: appropriate Assessment & Plan Assessment/Plan (1) Physical debility: (2) Acute CVA (cerebrovascular accident): (3) Hemiplegia affecting right dominant side: QUALIFIERS: Hemiplegia type: flaccid Hemiplegia etiology: late effect of cerebrovascular disease Cerebrovascular disease type: cerebral infarction Qualified Code(s): I69.351 - Hemiplegia and hemiparesis following cerebral infarction affecting right dominant side (4) Dysphagia: QUALIFIERS: Dysphagia type: oropharyngeal phase Qualified Code(s): R13.12 - Dysphagia, oropharyngeal phase (5) Dysarthria due to acute stroke: (6) Facial droop due to acute stroke: (7) Paresthesias: (8) HTN (hypertension): QUALIFIERS: Hypertension type: primary hypertension Qualified Code(s): I10 - Essential (primary) hypertension (9) Hyperlipidemia: QUALIFIERS: Hyperlipidemia type: mixed hyperlipidemia Qualified Code(s): E78.2 - Mixed hyperlipidemia (10) Diabetes mellitus type 2 with complications: (11) Obstructive sleep apnea: PLAN: Plan 1. Continue therapy 2. CBC, CMP, magnesium and phosphorus in the a.m. 3. Lipid panel in the a.m. 4. Plan discharge home with his sister on Saturday. 5. Arthritis compounded cream to his low back twice daily. 6. 30-day event monitor at discharge to exclude atrial fibrillation as etiology of the ischemic CVA. 7. Needs a colonoscopy in the near future because he has a history of colon polyps in the past and is overdue for follow-up colonoscopy. Charges/Coding Visit Charges Inpatient E&M: 87976 Subs Hosp L1
--- NOTE | 2024-11-23 11:43 | CASEMGMT ---
Social Work [facility] can accept and can accept with SOC 2-3 days after PCP signed orders. SW educated to pt on accepting agency. Amisha Heath SENIOR VICE PRESIDENT & GENERAL COUNSEL INSTRUCTOR NURSE
[2024-11-23 12:59] VITALS: BMI 31.6
[2024-11-23] MEDS: Arthritis Pain Compound 60 CLICK TUBE TOPICAL ×2 (14:16→22:00)
[2024-11-23 19:30] VITALS: BP 119/54; PULSE 81; RESP 16; TEMP 36.4; O2SAT 95
[2024-11-23 21:51] VITALS: BMI 31.6
[2024-11-23 22:00] VITALS: PULSE 60; RESP 16; O2SAT 94
[2024-11-23] MEDS: Atorvastatin Calcium 40 MG Tablet PO (22:01)
[2024-11-23] MEDS: Insulin Glargine-YFGN 100 UNIT/ML Pen 34 UNIT SC (22:01)
[2024-11-23 22:52] LABS: Bedside Glucose 107 mg/dL (74-106)
[2024-11-23] MEDS: traZODone 50 MG Tablet 150 MG PO (23:01)
[2024-11-24] MEDS: Enoxaparin 40 MG/0.4 ML Syringe SC (05:24)
[2024-11-24 06:00] VITALS: BP 113/55; PULSE 70; RESP 18; TEMP 36.3; O2SAT 93
[2024-11-24 06:03] LABS: Hematocrit 38.7 % (40-54); Hemoglobin 13.1 g/dL (13.0-16.5); Mean Corp Hgb Conc 33.9 g/dL (32-36); Mean Corpuscular Hgb 31.5 pg (27.0-32.0); Mean Platelet Vol. 9.9 fl (6.2-12.0); Platelet Count 327 K/mm3 (150-450); RBC Distribution Width CV 12.8 % (11.6-14.6); RBC Distribution Width SD 43.4 fl (35.1-43.9); Red Blood Count 4.16 M/mm3 (4.6-6.2); White Blood Count 9.1 K/mm3 (4.4-11.0)
[2024-11-24 06:46] LABS: Bedside Glucose 107 mg/dL (74-106)
[2024-11-24 06:56] LABS: ALB/GLOB Ratio 1.5 RATIO (0.9-2.4); AST(SGOT) 18 U/L (<=37); Alanine Aminotransfer ALT/SGPT 17 U/L (<=46); Alkaline Phosphatase 46 U/L (40-129); Anion Gap 12 (5-15); BUN 14 mg/dL (4-19); BUN/Creat Ratio 16.4 RATIO (10-20); Calcium,Total 9.3 mg/dL (7.6-11.0); Carbon Dioxide 24.7 mmol/L (21.0-32.0); Chloride 105 mmol/L (98-108); Cholesterol 101 mg/dL (<=200); Creatinine, Serum 0.87 mg/dL (0.70-1.20); EST Glomerular Filtration Rate 96 (>60); Globulin 2.6 g/dL (2.2-4.2); Glucose 97 mg/dL (70-99); High Density Lipoprotein 29 mg/dL; Low Density Lipoprotein Calc. 43 mg/dL; Magnesium 2.1 mg/dL (1.5-2.2); Phosphorus 3.7 mg/dL (2.7-4.5); Potassium 3.8 mmol/L (3.3-5.1); Protein, Total 6.7 g/dL (5.9-8.4); Sodium Level 142 mmol/L (133-145); Total Bilirubin 0.29 mg/dL (0.00-1.30); Triglycerides 148 mg/dL; Very Low Density Lipoprotein 30 mg/dL (5-40); cholesterol:hdl ratio screen 3.53
[2024-11-24] MEDS: Fenofibrate 145 MG Tablet PO (08:09)
[2024-11-24] MEDS: Sertraline 100 MG Tablet PO (08:09)
[2024-11-24] MEDS: Potassium Chloride Oral Tablet 10 MEQ PO (08:09)
[2024-11-24] MEDS: Arthritis Pain Compound 60 CLICK TUBE TOPICAL ×2 (08:09→21:43)
[2024-11-24] MEDS: Losartan Potassium 50 MG Tablet PO (08:09)
[2024-11-24] MEDS: Loratadine 10 MG Tablet PO (08:10)
[2024-11-24] MEDS: metFORMIN HCl 1,000 MG Tablet 1000 MG PO ×2 (08:10→16:59)
[2024-11-24] MEDS: Senna/Docusate Sodium 1 Tablet 2 TABLET PO ×2 (08:10→21:44)
[2024-11-24] MEDS: Aspirin E.C. 81 MG Tablet PO (08:10)
[2024-11-24 13:29] VITALS: BMI 31.6
--- NOTE | 2024-11-24 13:57 | PCM.DC ---
Discharge Instructions Diet Discharge Diet: - (1800 calorie, carb controlled, low fat, low salt diet. ) DC O2, CPAP, BIPAP needs Home O2 Discharge instructions: No Dressing / Incision Discharge Activity: May Not Drive, May Shower and - (Use hemiwalker) Weight Bearing Status: Full weight bearing Keep extremity elevated above heart level: - (R arm and leg to decrease swelling. ) Dressing / Incision Call your doctor if you observe: Fever of 101 or Higher, Inability to urinate, Shortness of breath, Dizziness, Fainting spells, Swelling in the ankles, Chest pain, Increased palpitations (irregular heartbeat), Calf discomfort, Uncontrolled pain and - (STROKE symptoms: facial droop, slurred speech, inability to get words out, weakness on 1 side of the body and not the other, numbness on 1 side of the body and not the other, inability to maintain your balance sitting or standing, vertigo. ) Follow Up Care Please Follow Up With: NEGRO Miller When: Appts are listed at the end of this document. You will also be following up with Dr. Cruz from neurology (or Dr. Schofield) and with behavioral Health. Test Results: Test results from this visit will be discussed in further detail at your follow-up appointment, if applicable. Pending Tests Upon Discharge: none Discharge Plan Admission Admit Date/Time: 10/16/24 12:26 Primary Reason for Your Visit: POST STROKE DEBILITY Attending Provider: Vero Ryder Primary Care Provider: AYLA RAMIREZ Instructions Patient Instructions: Understanding Body Mass Index (BMI), Understanding Adjustment Disorders, Discharge Instructions for Stroke, AFib, Effects of Stroke Additional Instructions / Restrictions: 1. You had an ischemic stroke. This is the most common type of stroke and it is due to a lack of blood flow to an area of the brain. Approximately 85% of strokes are ischemic. the other 15% are hemorrhagic strokes. This is when an artery bursts in the brain and you bleed into your head. Risk factors for ischemic stroke include high blood pressure, high cholesterol, diabetes, smoking, Family history of stroke or other cardiovascular disease, obstructive sleep apnea, overindulgence with alcohol and obesity/physical inactivity. You have many of these risk factors. The goals for stroke prevention are to keep the HGBA1C < 7 (some neurologists are now recommending keeping the HGBA1C 6.5 or less), to keep the BP consistently < 130/80, to keep the LDL cholesterol (bad cholesterol) 70 or less. Keep your weight down and know your BMI. Your BMI is currently 31.7. I recommend you try to get this down to less than 30, closer to 25. 31.7 is considered obese and 26-29.9 is considered overweight. NO SMOKING. You should even avoid second hand smoke. No more than 2 alcoholic drinks per day. Establish a regular exercise program and avoid inactivity. These things will all help to prevent strokes going forward. 2. You need to have regular follow up with your doctors to make sure you are within the goals set to prevent strokes. 3. Your blood pressure is well controlled now. It is controlled because you are taking a medication called Cozaar which is an antihypertensive. BP changes from minute to minute and it tends to increase with stress/anxiety/pain/overuse of alcohol. I recommend you get a BP cuff to have at home and check your BP several times a week, at different times, to make sure your are staying under 130/80. You were very anxious at admission to rehab and we placed you on medication to help control anxiety and depression. You are now sleeping well at night and your anxiety is better. I think you would benefit form behavioral health/psychotherapy to learn how to control anxiety and depression, possibly without medication. Some people are just high strung and need medication. If it keeps you from having another stroke it is well worth it. You have had a major change in your life and you are now dependent on others for assistance. This takes some adjusting to and a therapist can help you with this. There is a diagnosis for adjustment disorder. I am giving you some literature to read about this......it is a very real thing after someone has a major change in their life. 4. You have a hx of polyps in your colon. Polyps can be a precursor to colon cancer. You are overdue for a follow up colonoscopy. do not put this off too much longer. 5. One of the risk factors for stroke is a problem with the4 rhythm of the heart called AFIB (atrial fibrillation). Risk factors for AF include sleep apnea and alcohol use. Low potassium and low magnesium can also lead to AF. In patients with stroke we like to keep the potassium (K) around 4 and the Magnesium (MAG) around 2. You were placed on a magnesium supplement and potassium supplement when you came to rehab. I later discontinued the magnesium. We rechecked the potassium and the magnesium on the day prior to your discharge. The potassium is 3.8 and this is on a potassium supplement (10 MEQ). The magnesium level is 2.1 which is very good and you will not need to take a magnesium supplement. I am going to increase the potassium supplement to 20 mEq a day to get the potassium up to 4. You have been taking 10 mEq daily. I recommend you continue to take potassium. AFIB can be intermittent (called paroxysmal AFIB). I am sending you home with an order to have a heart monitor to make sure that you are not having paroxysmal atrial fibrillation. You have not been in atrial fibrillation anytime I have examined you on rehab and there was no documentation of atrial fibrillation at the previous hospital. The monitor will be mailed to you along with directions on how to place the monitor on. 6. I am going to be sending a copy of my discharge summary to all of the doctors you see so they are up to speed on everything that has happened. 7. If you or your family have any questions after you leave acute rehab please do not hesitate to call me. OFFICE: [phone] CELL: [phone] NURSES STATION ON REHAB: [phone] Discharge Orders/Prescriptions Prescriptions: New Arthritis Pain Compound 3 click topical BID Qty: 120 3RF atorvastatin 40 mg Tablet 40 mg PO QHS Qty: 30 0RF acetaminophen 325 mg Tablet 650 mg PO Q6H PRN PRN (Reason: Pain Score 1-10) Qty: 0 0RF insulin glargine-yfgn 100 unit/mL (3 mL) Insulin Pen 34 unit subcut QHS Qty: 4 0RF Allergy Relief (loratadine) 10 mg capsule 10 mg PO DAILY Qty: 30 0RF losartan 50 mg Tablet 50 mg PO DAILY Qty: 30 0RF trazodone 50 mg Tablet 150 mg PO QHS Qty: 90 0RF Rx Instructions: 3 tabs at bedtime sennosides-docusate sodium [Stimulant Laxative Plus] 8.6-50 mg Tablet 2 tab PO BID Qty: 120 0RF sertraline 100 mg Tablet 100 mg PO DAILY Qty: 30 0RF Rx Instructions: Take this in the morning potassium chloride 20 mEq tablet extended release 20 meq PO DAILY Qty: 30 0RF (DME) pen needle, diabetic 31 gauge x 1/3 needle See Rx Instructions .Route Qty: 100 0RF Rx Instructions: As directed Continued aspirin 81 mg tablet,delayed release (DR/EC) 81 mg PO DAILY metformin 1,000 mg tablet 1,000 mg PO BID Qty: 60 0RF fenofibrate nanocrystallized 145 mg tablet 145 mg PO DAILY Qty: 30 0RF Discontinued atorvastatin 20 mg tablet 20 mg PO DAILY losartan 100 mg tablet 100 mg PO DAILY turmeric 400 mg capsule 1,650 mg PO DAILY clopidogrel 75 mg Tablet 75 mg PO DAILY 19 Days Qty: 19 0RF Referrals / Follow Up: 30 day event monitor [Other] (device will be mailed to your house with instructions on how to apply ) [facility] [Provider Group] (office will call to make appt after they receive results from 30 day monitor) Omi Cruz MD [Non-Staff -Ordering Privileges] - (message left. if you do not hear from office within 2 days call them ) Carmel Ross NP-C [Med Staff - Group Fitness Department Head] - 01/27/25 1:00 pm Yo Barfield PA [Med Staff - Adv Practice Prof] - 11/26/24 1:30 pm (arrive at 1:30 to complete paperwork ) Disposition Disposition (needs filled in before D/C Order can be placed): Home Health Service
[2024-11-24 17:56] VITALS: BP 116/60; PULSE 70; RESP 17; TEMP 36.6; O2SAT 95
[2024-11-24 19:30] VITALS: BMI 31.6
[2024-11-24] MEDS: Atorvastatin Calcium 40 MG Tablet PO (21:44)
[2024-11-24] MEDS: Insulin Glargine-YFGN 100 UNIT/ML Pen 34 UNIT SC (21:45)
[2024-11-24 22:00] VITALS: PULSE 63; RESP 16; O2SAT 95
[2024-11-24 22:14] LABS: Bedside Glucose 105 mg/dL (74-106)
[2024-11-24] MEDS: traZODone 50 MG Tablet 150 MG PO (23:01)
[2024-11-25 06:00] VITALS: BP 117/54; PULSE 71; RESP 14; TEMP 37.1; O2SAT 94; BMI 32.1
[2024-11-25] MEDS: Losartan Potassium 50 MG Tablet PO (08:30)
[2024-11-25] MEDS: Enoxaparin 40 MG/0.4 ML Syringe SC (08:30)
[2024-11-25] MEDS: Sertraline 100 MG Tablet PO (08:30)
[2024-11-25] MEDS: Fenofibrate 145 MG Tablet PO (08:30)
[2024-11-25] MEDS: Arthritis Pain Compound 60 CLICK TUBE TOPICAL (08:31)
[2024-11-25] MEDS: Potassium Chloride Oral Tablet 10 MEQ PO (08:31)
[2024-11-25] MEDS: Loratadine 10 MG Tablet PO (08:31)
[2024-11-25] MEDS: Aspirin E.C. 81 MG Tablet PO (08:31)
[2024-11-25] MEDS: metFORMIN HCl 1,000 MG Tablet 1000 MG PO (08:31)
--- NOTE | 2024-11-25 09:11 | EX.DISCHREH ---
Providers Date of Admission: 10/16/24 Date of Discharge: 11/25/24 Primary Care Physician: AYLA RAMIREZ/Dex Barfield PROCESS INSPECTOR none Reason For Visit: CVA Diagnosis Discharge Diagnosis (1) Physical debility: Status: Acute Code(s): R53.81 - Other malaise (2) Acute CVA (cerebrovascular accident): Status: Inactive Code(s): I63.9 - Cerebral infarction, unspecified Plan: 10/14/24. MRI showed left thalamic and left centrum semiovale acute infarctions. MRA showed no significant areas of stenosis and no large vessel occlusions. He received 21 days of dual antiplatelet agents and is being discharged on ASA 81 mg daily and Atorvastatin 40 mg daily. LDL 1 day prior to DC is 43 with an HDL of 29 and TG of 148. LFT's are normal. Will foolow up with either Dr. Cruz or Dr. Schofield from neurology. (3) Hemiplegia affecting right dominant side: Status: Chronic Code(s): G81.91 - Hemiplegia, unspecified affecting right dominant side Qualifiers: Cerebrovascular disease type: cerebral infarction Hemiplegia etiology: late effect of cerebrovascular disease Hemiplegia type: flaccid Qualified Code(s): I69.351 - Hemiplegia and hemiparesis following cerebral infarction affecting right dominant side (4) Dysphagia: Status: Chronic Code(s): R13.10 - Dysphagia, unspecified Qualifiers: Dysphagia type: oropharyngeal phase Qualified Code(s): R13.12 - Dysphagia, oropharyngeal phase Plan: Improved. Diet at DC is thin liquids and regular textures. (5) Dysarthria due to acute stroke: Status: Chronic Code(s): I63.9 - Cerebral infarction, unspecified; R47.1 - Dysarthria and anarthria Plan: Much improved. Speech is easily intelligible at DC. Will need continued ST post DC. (6) Facial droop due to acute stroke: Status: Chronic Code(s): I63.9 - Cerebral infarction, unspecified; R29.810 - Facial weakness Plan: Much improved. Lid lag on left is much better but, still with mild drooping of the mouth. (7) Paresthesias: Status: Chronic Code(s): R20.2 - Paresthesia of skin (8) HTN (hypertension): Status: Chronic Code(s): I10 - Essential (primary) hypertension Qualifiers: Hypertension type: primary hypertension Qualified Code(s): I10 - Essential (primary) hypertension Plan: BP is at goal of < 130/80 at the time of DC from rehab. He is being discharged on Cozaar 50 mg daily. (9) Hyperlipidemia: Status: Chronic Code(s): E78.5 - Hyperlipidemia, unspecified Qualifiers: Hyperlipidemia type: mixed hyperlipidemia Qualified Code(s): E78.2 - Mixed hyperlipidemia Plan: Well controlled on Atorvastatin at [place]. LDL on 11/24/24 is 43. TG are 148 on Fenofibrate 145 mg daily. Denies muscle pain. LFT's are WNL. HDL is low at 29. Consider adding Niaspan at HS going forward. 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 He is on an 1800 calorie, carb consistent diet with low salt and low fat. (11) Obstructive sleep apnea: Status: Chronic Code(s): G47.33 - Obstructive sleep apnea (adult) (pediatric) Plan: Compliant with CPAP. (12) Low HDL (under 40): Status: Chronic Code(s): E78.6 - Lipoprotein deficiency Plan: May benefit from Niaspan at HS to help increase HDL. (13) Urine retention: Status: Resolved Code(s): R33.9 - Retention of urine, unspecified (14) Anxiety and depression: Status: Chronic Code(s): F41.9 - Anxiety disorder, unspecified; F32.A - Depression, unspecified Plan: Doing much better on Sertraline 100 mg daily and Trazodone 150 mg at HS for insomnia. Has follow up scheduled with behavioral Health. (15) Colon polyps: Status: Chronic Code(s): K63.5 - Polyp of colon Qualifiers: Colon location: unspecified part of colon Colon polyp type: unspecified Qualified Code(s): K63.5 - Polyp of colon Plan: Overdue for repeat colonoscopy. Hx of multiple polyps. Would hold off until he is 3 months post stroke. Prep may lead to dehydration and decreased BP. (16) Cigar smoker: Status: Chronic Code(s): F17.290 - Nicotine dependence, other tobacco product, uncomplicated Plan: Smoking cessation counseling was given several times while on rehab. (17) Alcohol use: Status: Chronic Code(s): F10.90 - Alcohol use, unspecified, uncomplicated Plan: Pt instructed to limit alcohol intake to no more than 2 drinks a day of alcohol. (18) Obesity (BMI 30.0-34.9): Status: Chronic Code(s): E66.811 - Obesity, class 1 Plan: weight loss advised. (19) Grade I diastolic dysfunction: Status: Acute Code(s): I51.89 - Other ill-defined heart diseases (20) Grade I diastolic dysfunction: Status: Acute Code(s): I51.89 - Other ill-defined heart diseases Plan 1. DC home today to his sisters house. 2. 30 day event monitor for cryptogenic ischemic CVA to exclude PAF. Will follow up with [facility] for results. 3. No driving. 4. Follow up with PCP, Dex Barfield PROCESS INSPECTOR, in [place] for time being since he will be living with his sister in [place]. 5. Recommend follow up with GI in 3-6 months for a colonoscopy. He has a hx of colon polyps and is overdue for repeat colonoscopy. 6. Home health care with PT/OT/ST/SN/RN CLINICAL QUALITY/SW. 7. DME at discharge includes a 3 in 1 commode, hospital bed and hemiwalker. 8. Follow up has been scheduled with neurology. Medications at Discharge Home Medications aspirin 81 mg tablet,delayed release 81 mg PO DAILY heart health 10/14/24 Arthritis Pain Compound 3 click topical BID #120 GMS 11/24/24 acetaminophen 325 mg tablet 650 mg (2 x 325 mg) PO Q6H PRN PRN Pain Score 1-10 #0 tabs 11/24/24 atorvastatin 40 mg tablet 40 mg PO QHS #30 tabs 11/24/24 fenofibrate nanocrystallized 145 mg tablet 145 mg PO DAILY cholesterol #30 tabs 11/24/24 insulin glargine-yfgn 100 unit/mL (3 mL) subcutaneous pen 34 unit (0.34 mL) subcut QHS #4 pens 11/24/24 loratadine 10 mg capsule (Allergy Relief (loratadine)) 10 mg PO DAILY #30 caps 11/24/24 losartan 50 mg tablet 50 mg PO DAILY #30 tabs 11/24/24 metformin 1,000 mg tablet 1,000 mg PO BID blood sugar #60 tabs 11/24/24 pen needle, diabetic 31 gauge x 1/ #100 ea 11/24/24 potassium chloride 20 mEq tablet,extended release 20 meq PO DAILY #30 tabs 11/24/24 sennosides 8.6 mg-docusate sodium 50 mg tablet (Stimulant Laxative Plus) 2 tab PO BID #120 tabs 11/24/24 sertraline 100 mg tablet 100 mg PO DAILY #30 tabs 11/24/24 trazodone 50 mg tablet 150 mg (3 x 50 mg) PO QHS #90 tabs 11/24/24 Hospital Course Operations None Procedures Modified Barium Swallow (10/20/2024. Mild oropharyngeal dysphagia.) and Transthoracic echo (Normal LV size. Left ventricular systolic function is normal. Left ventricular ejection fraction is 65 %. Bubble contrast study is negative for PFO/ASD. Stage 1 diastolic dysfunction. Contrast injection was performed.) Summary of Care Provided Minutes Spent on Discharge: 40 Hospital Course: LAWRENCE CRISTINA, is a 64 YO M with a PMH of DM II, hyperlipidemia, hypertension, colon polyps, STEVE on CPAP, tobacco dependence (cigars) chronic back pain with radicular pain into the left lower extremity (has never had an MRI or a CT of the low back) and obesity who presented to the emergency department at [facility] on 10/14/24 complaining of right facial droop and slurred speech. NIH at arrival was 4. Noncontrast CT brain was negative for acute process. He has a dye allergy so a CTA was not done. Instead he had an MRI and MRA. The MRI showed left thalamic and left centrum semiovale acute ischemic infarctions. MRA of the neck showed decreased signal within the proximal right internal carotid artery which was felt to be artifact. MRA of the head showed no significant areas of stenosis and no large vessel occlusions. He was not a candidate for thrombolysis since it had been more than 5 hours since symptom onset. Tele-neurology from [facility] was consulted and recommended dual antiplatelet therapy, high intensity statin, transthoracic echocardiogram, hemoglobin A1c and lipid panel. At the time the teleneurologist saw him the NIHSS was 12. He was admitted to the hospitalist service and started on aspirin and a high intensity statin. Atorvastatin 40 mg (he was only taking Atorvastatin 20 mg at admission to ED). Transthoracic echocardiogram showed an ejection fraction of 65% with stage I diastolic dysfunction and no regional wall motion abnormalities. Both atria were of normal size and the bubble contrast study was negative for etatz-eg-pjqt shunt. There was no significant valvular heart disease. Hemoglobin A1c was 5.8% ( it had been 8.1% the previous month). Triglycerides were 451 and the total cholesterol was 152 with an HDL of 36. The calculated LDL was 107. Creatinine was 0.82. Medications at admission included aspirin 81 mg daily, atorvastatin 20 mg daily, fenofibrate 145 mg daily losartan 100 mg daily metformin 1000 mg twice daily and 7.5 mg of meloxicam once daily. While in the hospital he was seen by PT/OT/ST. His modified [place] score was a 4. Admission to acute inpatient rehab was recommended at discharge. He was transferred to the acute inpatient rehab unit at [facility] on 10/16/2024 for 3 hours of therapy daily to restore function/independent at or near his level prior to the recent stroke. BS's were not adequately controlled at admission to acute rehab. He was started on glargine insulin at HS. On 34 units Q HS and Metformin the blood sugars are under excellent control with no hypoglycemia. Losartan 100 mg was continued at admission. After a few weeks in rehab the BP actually improved and the systolics were in the 90's. The dose was decreased to 50 mg daily and BP is within goal of < 130/80 with no hypotension at the time of discharge from rehab. Lawrence had lab drawn 1 day prior to discharge from rehab. CBC was unremarkable. LDL was 43 with HDL of 29 and TG's of 148. LFT's were normal. Creat is stable at 0.87. MAG was 2.1 and the K was 3.8 on 10 MEQ of KCL daily. He has been in sinus rhythm ever time I have examined him on rehab but, there is a possiblity that he has PAF. A 30 day event monitor was ordered at [place]. He has STEVE and was maybe overindulging with alcohol at times which puts him at increased risk for PAF. for this reason I prefer to keep the K at 4 so the dose of KCL was increased to 20 MEQ daily at the time of discharge. Lawrence has had a low HDL in the past and tried taking Niacin OTC but, he had flushing and discontinued use. We discussed possibly trying Niaspan (long acting formulation) as some people tolerate this medication better than short acting Niacin IF neurology and cardiology think this is advisable. Lawrence was quite anxious at presentation to rehab and admitted to feeling depressed. He had been having a problem with insomnia even prior to the stroke. He was started on Sertraline and PRN Ambien. He remained anxious and he was taking 10 mg of Ambien every night to help him sleep. Buspar was added to the drug regimen and Sertraline was increased to 100 mg daily. The anxiety improved but, he continued to take 10 mg of Ambien every night. We weaned Buspar off after he had been on Sertraline 100 mg for a couple weeks and the anxiety remains under good control. We discussed that Ambien is a controlled substance and I wanted him to try a different drug for chronic insomnia since he was needing to take Ambien every night. He was agreeable with this and he was started on Trazodone 100 mg at night. He had a problem with urine retention early in the admission to rehab so we checked PVR's on Trazodone and he is not retaining. He was not happy with the soundness of his sleep on 100 mg and so the dose was increased to 150 mg and he is sleeping well on this dose. Anxiety and depression are controlled. He has had no adverse effects with Sertraline. We discussed how stress can influence BP, Sleep, appetite, irritability, motivation, etc. We discussed the major change in his life due to the stroke and he has lost some of his independence due to disability. I recommended psychotherapy and he was agreeable to this. An appt was scheduled for him to follow up with Behavioral Health post discharge. Lawrence did very well in therapy. At admission to rehab his NIHSS score was 13 and he was flaccid on the right side. NIHSS was 13 at admission to acute rehab and is now 7 at discharge. His modified Sg score has improved from 5 at admission to rehab to a 4 at discharge. He is now ambulating approximately 60 feet with a hemiwalker at contact-guard assist. He has a brace for the right lower extremity to prevent buckling of the right knee. He is able to do 11 sit to stands in 30 seconds from the wheelchair using the left upper extremity to push up. The PT has him at contact-guard assist for sit to stands because she blocks the right medial foot to prevent hip adduction across the midline. He is able to ascend/descend one 6 inch step with a left handrail at min assist for balance. He is able to complete eating, upper body dressing and grooming at supervision/set up. He needs minimal assistance with bathing and lower body dressing. He is contact-guard assist for toilet transfer/toileting and tub/shower transfer. Lawrence will be going to his sisters house to recover. [facility] has been arranged by the and he will have PT/OT/ST/SN/YOON/SW. They have a ramp so that he can enter the house. Since Lawrence will be staying with his sister in [place] he asked to have a PCP he can follow up with. An appt was made for him to follow up with Dex TOM on 11/26/24. He has an appt to follow up with Cassie MOLINA for neurology on 12/03/2024 at 2 PM. A requisition for a 30-day event monitor was written and [facility] will call him when they received the results of the 30-day event monitor to schedule an appointment for follow-up to discuss the results. He was instructed not to drive. If in the future if he recovers sufficient function to the point where is possibly could drive we recommend he follow up with the drivers rehab program at [facility] to ensure that he is safe to operate a motor vehicle. An appt has also been scheduled with Vandana MOLINA for Behavioral Health eval on 01/27/2025 at 1 PM. Physical Exam Const alert, oriented x3 and no apparent distress Constitutional Narrative: pleasant General Appearance: cooperative, comfortable, well kempt and well developed HEENT HEENT Narrative: He no longer has Lid lag on the R and both eyes look normal. He is able to close both eyes tightly. He can raise his eyebrows symmetrically. Mild decrease in sensation R face. Mild R facial droop. MM are moist and there is no evidence of thrush. Head and Scalp: normocephalic and atraumatic Eyes PERRL, EOMs intact bilaterally, conjunctivae normal and no scleral icterus Eyes Narrative: No discharge from the eyes and no mattering of the eyelashes. Neck supple, thyroid normal, No nodes and no carotid bruits General: trachea midline Chest Chest: symmetrical chest wall rise Resp clear to auscultation bilaterally Resp Narrative: No cough with deep breathing. Not tachypneic and no conversational dyspnea. Effort and Inspection: able to speak in complete sentences Cardio regular rate, regular rhythm, no murmurs, no rub and no gallops Cardio Narrative: No ectopy. Has been in a regular rhythm ever since he arrived on rehab. GI normal to inspection, nondistended, normoactive bowel sounds, soft to palpation and non-tender GI Narrative: No guarding with palpation Narrative: Postvoid residuals are not consistent with urine retention and is longer. Bladder / Kidney Exam: no CVA tenderness Back/Spine Back/Spine Narrative: He was c.o low back pain which he has had in the past. Denies radicular pain. We treated with application of a compounded cream containing bulk Voltaren, baclofen and lidocaine. This has helped his pain and he was given a prescription for discharge. Extremity no calf tenderness Extremity Narrative: No pain with palpation of the R thigh and there is no erythema or swelling. Negative SLR. General Extremity: Negative for edema Skin General Skin Exam: no breakdown Rashes: no rashes Neuro oriented x3 Neuro Narrative: Mild R facial droop. Decreased sensation of the R face. No longer with lid lag R upper eyelid and he can close the R eye tightly now. Both eyes have a normal appearance. No visual field cuts. Can not lift the RUE off the bed but now has some contraction of the R trapezius, R biceps, R triceps. He can canopy inspector my hand with the R hand now but, he can not extend his fingers. He has a brace for the R hand now because he was developing some flexion contracture. He is able to lift the RLE off the bed now and hold it up with no drift for 5 sec. Still with decreased dorsiflexion but, plantar flexion is improving. No ataxia. No extinction. when ambulating the RLE tends to adduct toward the midline. R knee has not buckled since the brace was obtained. Very mild dysarthria and mild aphasia. Psych cooperative Psych Narrative: Very pleasant. Sleeping well at night. Good appetite. Does not seem anxious or depressed. Engaged when I am talking with him and makes good eye contact with me. Less irritable and better insight into his deficits. Appearance: appropriate Weight / BMI Weight Weight: 204 lb 5.896 oz Body Mass Index (BMI) 32.1 ABG / Lab / Microbiology Data 11/24/24 05:15 11/24/24 05:15 Laboratory: Laboratory Results - last 24 hr 11/24/24 21:42: POC Glucose 105 Indicators for Scoring Admitted with or Primary Diagnosis of CVA/Stroke: Yes Hx of CVA/Stroke: Yes Modified [place] Score MRS Score at time of Evaluation: 4-Moderate/severe disability (down from a 5 at admission to rehab) NIHSS NIHSS 1a. Level of Consciousness: Alert; keenly responsive 1b. LOC Questions: Answers BOTH questions correctly. 1c. LOC Commands: Performs both tasks correctly. 2. Best Gaze: Normal 3. Visual: No visual loss 4. Facial Palsy: Minor paralysis (flattened nasolabial fold, asymmetry on smiling) 5a. Left Arm: No drift; arm holds 90 (or 45) degrees for full 10 seconds 5b. Right Arm: No effort against gravity; arm falls (can not lift the arm off the bed but, he now has muscle contraction in the R trapezius, R triceps and R biceps. He is able to canopy inspector my hand but, is not able to extend his fingers.) 6a. Left Leg: No drift; leg holds 30-degree position for full 5 seconds 6b. Right Leg: No drift; leg holds 30-degree position for full 5 seconds (still has poor dorsiflexion of the foot, plantar flexion is stronger. He is ambulating with a hemiwalker and a brace on the RLE to prevent buckling of the knee. ) 7. Limb Ataxia: Absent 8. Sensory: Etfb-zt-kllusrlz sensory loss; 9. Best Language: Ohdx-tr-pylxvdtk aphasia; (mild now) 10. Dysarthria: Rsvo-tp-wbqmyjlk dysarthria; (much improved and is now mild. speech is intelligible with no difficulty understanding him. ) 11. Extinction and Inattention: No abnormality Total: 7 D/C Instructions Discharge Diet: - (1800 calorie, carb controlled, low fat, low salt diet. ) Weight Bearing Status: Full weight bearing Keep extremity elevated above heart level: - (R arm and leg to decrease swelling. ) Call your doctor if you observe: Fever of 101 or Higher, Inability to urinate, Shortness of breath, Dizziness, Fainting spells, Swelling in the ankles, Chest pain, Increased palpitations (irregular heartbeat), Calf discomfort, Uncontrolled pain and - (STROKE symptoms: facial droop, slurred speech, inability to get words out, weakness on 1 side of the body and not the other, numbness on 1 side of the body and not the other, inability to maintain your balance sitting or standing, vertigo. ) DC O2, CPAP, BIPAP Needs RN Home O2 qualification: No Data to Display Home O2 Discharge instructions: No Pending Tests Upon Discharge: none Please Follow Up With: NEGRO Miller When: Appts are listed at the end of this document. You will also be following up with Dr. Cruz from neurology (or Dr. Schofield) and with behavioral Health. Meaningful Use Info Meaningful Use Meaningful Use Diagnoses (Choose all that apply): Ischemic CVA CVA Therapy Assessed for PT,OT and/or ST?: Yes Ischemic Stroke Antithrombotic order at d/c?: Yes Dx of Atrial fib/flutter?: No Anticoagulant at discharge?: No Reason anticoagulant not ordered: Treatment not Indicated Statin Dosing Therapy Reference: STATIN DOSE THERAPY REFERENCE: * Patients > 75 years receive moderate or high dose statin therapy. * Patients 75 years or YOUNGER should receive HIGH intensity statin dose unless contraindicated. You will be required to document reason for non-treatment if statin daily dose does not meet guidelines. HIGH DOSE STATIN THERAPY DAILY Atorvastatin > than or = to 40 mg Rosuvastatin > than or = to 20 mg Amlodipine + Atorvastatin > than or = to 2.5/40 mg Ezetimibe + Simvastatin 10/80 mg Simvastatin 80mg Statins at discharge?: Yes If patient is 75 or younger, pt will be discharged on HIGH intensity statin.: Yes Primary Dx Acute Ischemic CVA?: Yes IV thrombolytic ordered during stay?: No Reason IV thrombolytic not ordered: Procedure not Indicated Discharge Plan Admission Admit Date/Time: 10/16/24 12:26 Primary Reason for Your Visit: POST STROKE DEBILITY Attending Provider: Vero Ryder Primary Care Provider: AYLA RAMIREZ Instructions Patient Instructions: Understanding Body Mass Index (BMI), Understanding Adjustment Disorders, Discharge Instructions for Stroke, AFib, Effects of Stroke Additional Instructions / Restrictions: 1. You had an ischemic stroke. This is the most common type of stroke and it is due to a lack of blood flow to an area of the brain. Approximately 85% of strokes are ischemic. the other 15% are hemorrhagic strokes. This is when an artery bursts in the brain and you bleed into your head. Risk factors for ischemic stroke include high blood pressure, high cholesterol, diabetes, smoking, Family history of stroke or other cardiovascular disease, obstructive sleep apnea, overindulgence with alcohol and obesity/physical inactivity. You have many of these risk factors. The goals for stroke prevention are to keep the HGBA1C < 7 (some neurologists are now recommending keeping the HGBA1C 6.5 or less), to keep the BP consistently < 130/80, to keep the LDL cholesterol (bad cholesterol) 70 or less. Keep your weight down and know your BMI. Your BMI is currently 31.7. I recommend you try to get this down to less than 30, closer to 25. 31.7 is considered obese and 26-29.9 is considered overweight. NO SMOKING. You should even avoid second hand smoke. No more than 2 alcoholic drinks per day. Establish a regular exercise program and avoid inactivity. These things will all help to prevent strokes going forward. 2. You need to have regular follow up with your doctors to make sure you are within the goals set to prevent strokes. 3. Your blood pressure is well controlled now. It is controlled because you are taking a medication called Cozaar which is an antihypertensive. BP changes from minute to minute and it tends to increase with stress/anxiety/pain/overuse of alcohol. I recommend you get a BP cuff to have at home and check your BP several times a week, at different times, to make sure your are staying under 130/80. You were very anxious at admission to rehab and we placed you on medication to help control anxiety and depression. You are now sleeping well at night and your anxiety is better. I think you would benefit form behavioral health/psychotherapy to learn how to control anxiety and depression, possibly without medication. Some people are just high strung and need medication. If it keeps you from having another stroke it is well worth it. You have had a major change in your life and you are now dependent on others for assistance. This takes some adjusting to and a therapist can help you with this. There is a diagnosis for adjustment disorder. I am giving you some literature to read about this......it is a very real thing after someone has a major change in their life. 4. You have a hx of polyps in your colon. Polyps can be a precursor to colon cancer. You are overdue for a follow up colonoscopy. do not put this off too much longer. 5. One of the risk factors for stroke is a problem with the4 rhythm of the heart called AFIB (atrial fibrillation). Risk factors for AF include sleep apnea and alcohol use. Low potassium and low magnesium can also lead to AF. In patients with stroke we like to keep the potassium (K) around 4 and the Magnesium (MAG) around 2. You were placed on a magnesium supplement and potassium supplement when you came to rehab. I later discontinued the magnesium. We rechecked the potassium and the magnesium on the day prior to your discharge. The potassium is 3.8 and this is on a potassium supplement (10 MEQ). The magnesium level is 2.1 which is very good and you will not need to take a magnesium supplement. I am going to increase the potassium supplement to 20 mEq a day to get the potassium up to 4. You have been taking 10 mEq daily. I recommend you continue to take potassium. AFIB can be intermittent (called paroxysmal AFIB). I am sending you home with an order to have a heart monitor to make sure that you are not having paroxysmal atrial fibrillation. You have not been in atrial fibrillation anytime I have examined you on rehab and there was no documentation of atrial fibrillation at the previous hospital. The monitor will be mailed to you along with directions on how to place the monitor on. 6. I am going to be sending a copy of my discharge summary to all of the doctors you see so they are up to speed on everything that has happened. 7. If you or your family have any questions after you leave acute rehab please do not hesitate to call me. OFFICE: [phone] CELL: [phone] NURSES STATION ON REHAB: [phone] Discharge Orders/Prescriptions Prescriptions: New Arthritis Pain Compound 3 click topical BID Qty: 120 3RF atorvastatin 40 mg Tablet 40 mg PO QHS Qty: 30 0RF acetaminophen 325 mg Tablet 650 mg PO Q6H PRN PRN (Reason: Pain Score 1-10) Qty: 0 0RF insulin glargine-yfgn 100 unit/mL (3 mL) Insulin Pen 34 unit subcut QHS Qty: 4 0RF Allergy Relief (loratadine) 10 mg capsule 10 mg PO DAILY Qty: 30 0RF losartan 50 mg Tablet 50 mg PO DAILY Qty: 30 0RF trazodone 50 mg Tablet 150 mg PO QHS Qty: 90 0RF Rx Instructions: 3 tabs at bedtime sennosides-docusate sodium [Stimulant Laxative Plus] 8.6-50 mg Tablet 2 tab PO BID Qty: 120 0RF sertraline 100 mg Tablet 100 mg PO DAILY Qty: 30 0RF Rx Instructions: Take this in the morning potassium chloride 20 mEq tablet extended release 20 meq PO DAILY Qty: 30 0RF (DME) pen needle, diabetic 31 gauge x 1/3 needle See Rx Instructions .Route Qty: 100 0RF Rx Instructions: As directed Continued aspirin 81 mg tablet,delayed release (DR/EC) 81 mg PO DAILY metformin 1,000 mg tablet 1,000 mg PO BID Qty: 60 0RF fenofibrate nanocrystallized 145 mg tablet 145 mg PO DAILY Qty: 30 0RF Discontinued atorvastatin 20 mg tablet 20 mg PO DAILY losartan 100 mg tablet 100 mg PO DAILY turmeric 400 mg capsule 1,650 mg PO DAILY clopidogrel 75 mg Tablet 75 mg PO DAILY 19 Days Qty: 19 0RF Referrals / Follow Up: 30 day event monitor [Other] (device will be mailed to your house with instructions on how to apply ) [facility] [Provider Group] (office will call to make appt after they receive results from 30 day monitor) Cassie Neves NP-C [Med Staff - Adv Practice Prof] - 12/03/24 2:00 pm Carmel Ross NP-C [Med Staff - Cow Puncher] - 01/27/25 1:00 pm Yo Barfield PA [Med Staff - Adv Practice Prof] - 11/26/24 1:30 pm (arrive at 1:30 to complete paperwork ) Disposition Disposition (needs filled in before D/C Order can be placed): Home Health Service Charges/Coding Visit Charges Inpatient E&M: 50662 Disch Hosp >30min
[2024-11-25 11:46] VITALS: BMI 32.1
[2024-11-25 13:09] VITALS: BP 117/54; PULSE 71; RESP 16; TEMP 37.1; O2SAT 94
--- NOTE | 2024-11-25 13:10 | NURSING ---
Discharged home with family. Discharge instructions, medications and appointments reviewed with pt and family. Denies questions or concerns
== END 2024-11-25 13:13 | disposition home health service (06) | DRG 57 ==
PROVIDERS: Admitting Provider Internal Medicine; Visit Provider Internal Medicine
DX: I69.351 Hemiplegia and hemiparesis following cerebral infarction affecting right dominant side (principal); I69.322 Dysarthria following cerebral infarction; I48.0 Paroxysmal atrial fibrillation; E86.0 Dehydration; I69.392 Facial weakness following cerebral infarction; E11.9 Type 2 diabetes mellitus without complications; I10 Essential (primary) hypertension; F32.A Depression, unspecified; E66.811 Obesity, class 1; J30.2 Other seasonal allergic rhinitis; E78.2 Mixed hyperlipidemia; G47.33 Obstructive sleep apnea (adult) (pediatric); F17.290 Nicotine dependence, other tobacco product, uncomplicated; F41.9 Anxiety disorder, unspecified; E78.6 Lipoprotein deficiency; R13.12 Dysphagia, oropharyngeal phase; Z79.84 Long term (current) use of oral hypoglycemic drugs; R33.9 Retention of urine, unspecified; G47.00 Insomnia, unspecified; Z68.32 Body mass index [BMI] 32.0-32.9, adult; Z79.82 Long term (current) use of aspirin; Z79.02 Long term (current) use of antithrombotics/antiplatelets; Z79.899 Other long term (current) drug therapy
CPT/HCPCS: 36415; 74230; 80048; 80053; 80061; 81001; 82570; 82962; 83735; 84100; 84132; 84156; 85014; 85018; 85025; 85027; 92507; 92523; 92526; 92611; 97110; 97112; 97116; 97129; 97130; 97140; 97162; 97166; 97530; 97535; 97542; 97802; 97803; 99406

== ENCOUNTER → 2025-01-27 | Outpatient (CLI) | payer OTHER, SELFPAY ==
--- NOTE | 2025-01-27 14:35 | RAD_ITS ---
PROCEDURE: HIP, UNI W/ PELVIS 2-3 VIEWS 01/27/2025 REASON FOR EXAM: PAIN TECHNIQUE: AP pelvis and two views left hip, 3 total images FINDINGS: Bilateral symmetric appearing SI joints and pubic symphysis appear within limits. Rounding out and flattening of the lateral right femoral head may be due to some degree of buttressing with lateral marginal acetabular osteophyte formation. Severe appearing left hip osteoarthrosis with severe joint space narrowing laterally and [id number] appearing contact with areas of sclerosis and subchondral cyst formation, marginal osteophyte formation. No fracture or dislocation. Vascular calcification noted. RAD/HIP, UNI W/ Pelvis 2-3 Views IMPRESSION: Severe left hip osteoarthrosis as above. Reading Location: [id number]
--- NOTE | 2025-01-27 14:35 | RAD_ITS ---
PROCEDURE: LUMBAR SPINE 2 OR 3 VIEWS 01/27/2025 REASON FOR EXAM: PAIN TECHNIQUE: 3 view(s) of the lumbar spine, AP, lateral and coned-down L5-S1 view FINDINGS: 5 [id number] lumbar vertebral body types identified. No fracture or malalignment. Some straightening of the normal lordosis may represent degree of spasm or positioning. Multilevel facet degenerative changes suggested mid to lower lumbar spine. L5-S1 spondylosis/discogenic change. RAD/Lumbar Spine 2 or 3 Views IMPRESSION: L5-S1 spondylosis/discogenic change with multilevel bilateral appearing facet d egenerative changes mid to lower lumbar spine. Some straightening of the normal lordosis may represent degree of spasm or posi tioning. Reading Location: [id number]
== END | disposition home or self-care (01) ==
LOC: RAD 14:20
PROVIDERS: PCP Physician Assistant; Referring Provider Physician Assistant; Visit Provider Physician Assistant
DX: M54.9 Dorsalgia, unspecified (principal); G89.29 Other chronic pain; M25.552 Pain in left hip
CPT/HCPCS: 72100; 73502

== ENCOUNTER → 2025-02-11 | Outpatient (CLI) | payer OTHER, SELFPAY ==
[2025-02-11 15:45] LABS: Absolute Lymphocyte Count 1.86 X10^3/uL (0.83-4.51); Absolute Neutrophil Count 5.9 X10^3/uL (2.0-7.7); Basophil# 0.04 X10^3/uL; Basophil% 0.5 % (0-1); Eosinophil# 0.14 X10^3/uL; Eosinophils% 1.6 % (0-5); Hematocrit 41.7 % (40-54); Hemoglobin 13.9 g/dL (13.0-16.5); Lymphocyte # 1.86 X10^3/ul (0.83-4.51); Lymphocyte % 21.6 % (19-41); Mean Corp Hgb Conc 33.3 g/dL (32-36); Mean Corpuscular Hgb 30.7 pg (27.0-32.0); Mean Corpuscular Volume 92.1 fL (80-94); Mean Platelet Vol. 10.9 fl (6.2-12.0); Monocyte# 0.66 X10^3/uL; Monocyte% 7.6 % (0-10); NRBC Flagged by Analyzer 0 % (0-5); Neutrophil % 68.4 % (47-70); Platelet Count 320 K/mm3 (150-450); RBC Distribution Width CV 12.5 % (11.6-14.6); RBC Distribution Width SD 42.1 fl (35.1-43.9); Red Blood Count 4.53 M/mm3 (4.6-6.2); White Blood Count 8.6 K/mm3 (4.4-11.0)
[2025-02-11 15:55] LABS: ALB/GLOB Ratio 1.5 RATIO (0.9-2.4); AST(SGOT) 20 U/L (<=37); Alanine Aminotransfer ALT/SGPT 12 U/L (<=46); Albumin, Serum 4.5 g/dL (3.4-4.8); Alkaline Phosphatase 55 U/L (40-129); Anion Gap 13 (5-15); BUN 18 mg/dL (4-19); BUN/Creat Ratio 23.6 RATIO (10-20); Calcium,Total 9.7 mg/dL (7.6-11.0); Carbon Dioxide 23.7 mmol/L (21.0-32.0); Chloride 103 mmol/L (98-108); Creatinine, Serum 0.77 mg/dL (0.70-1.20); EST Glomerular Filtration Rate 100 (>60); Glucose 108 mg/dL (70-99); Potassium 4.2 mmol/L (3.3-5.1); Protein, Total 7.5 g/dL (5.9-8.4); Sodium Level 140 mmol/L (133-145); Total Bilirubin 0.31 mg/dL (0.00-1.30)
[2025-02-11 15:58] LABS: Hemoglobin A1c 5.2 % (<=5.6)
== END | disposition home or self-care (01) ==
LOC: BIMLAB 14:08
PROVIDERS: PCP Physician Assistant; Referring Provider Physician Assistant; Visit Provider Physician Assistant
DX: I63.9 Cerebral infarction, unspecified (principal); E11.9 Type 2 diabetes mellitus without complications
CPT/HCPCS: 36415; 80053; 83036; 85025

== ENCOUNTER 2025-04-20 06:42 | Day surgery (SDC) | payer OTHER, SELFPAY ==
--- NOTE | 2025-04-16 15:49 | PAT.ANE_ITS ---
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 When Was Last Pacemaker Check QUESTION #4 FULL TEXT: You/Your Family Experience fever (hyperthermia) with Anesthesia Last Oral Intake Last Oral intake: Last Oral Intake NPO since Meds taken in AM with sips of water? Meds patient instructed to take am of surgery PONV PONV - traffic circuit engineer: PONV - traffic circuit engineer Female No 04/16/25 10:44 HX of Motion Sickness No 04/16/25 10:44 HX of N/V After Surgery No 04/16/25 10:44 Non-Smoker Yes 04/16/25 10:44 Duration of Surgery greater No 04/16/25 10:44 than 60 minutes Number of Risk Factors 1 04/16/25 10:44 PONV Score Low Risk 04/16/25 10:44 Height & Weight Height & Weight: Anesthesia: Height & Weight Height 5 ft 6 in 03/30/25 13:11 Respiratory Assessment Respiratory Assessment - traffic circuit engineer: Respiratory Tract Infection Hx - traffic circuit engineer Hx Respiratory Tract Infection No 04/16/25 10:44 STOP Sleep Apnea STOP Sleep Apnea - traffic circuit engineer: STOP Sleep Apnea - traffic circuit engineer Hx Hypertension Yes 04/16/25 10:44 Hx Sleep Apnea Yes 04/16/25 10:44 CPAP Yes 04/16/25 10:44 BIPAP No 04/16/25 10:44 Do you snore loudly (louder than talking or can be heard Do you often feel tired/ fatigued/ sleepy during daytime? Has anyone observed you stop breathing during sleep? STOP Results Positive 04/16/25 10:44 QUESTION #5 FULL TEXT : Do you snore loudly (louder than talking or can be heard through closed doors)? 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 Specify any problems Hx of Preganancy in last 3 N/A 04/16/25 10:44 Months Nurse Filling Out Transfusion JZOLLLAVERNE 04/16/25 10:44 & Questions: Date: 04/16/25 04/16/25 10:44 Time: 10:46 04/16/25 10:44 Patient unable to answer at this time (ie. confused, unrespo /Reproduction History /Reproductive History - traffic circuit engineer: /Reproductive Hx- traffic circuit engineer Hx Now No 04/16/25 10:44 Gestational Age (in weeks): EDC: Hx Hx Para Hx Section SAB No 04/16/25 10:44 [facility] Medical History (Updated 04/16/25 @ 10:44 by Laura Corona) Wears glasses Walker as ambulation aid Arthritis Prostate disease Stroke/cerebrovascular accident Dietary restriction Personal history of colonic polyps Grade I diastolic dysfunction Grade I diastolic dysfunction Low HDL (under 40) Environmental and seasonal allergies Anxiety and depression Obstructive sleep apnea Colon polyps Obesity (BMI 30.0-34.9) Alcohol use Cigar smoker HTN (hypertension) Hyperlipidemia Diabetes mellitus type 2 with complications Home Medications ?Medication ?Instructions ?Recorded ?Last Taken ?Type Arthritis Pain Compound 3 click topical BID #120 GMS 11/24/24 Unknown Rx acetaminophen 325 mg tablet 650 mg (2 x 325 mg) PO Q6H PRN PRN 11/24/24 Unknown Rx Pain Score 1-10 #0 tabs loratadine 10 mg capsule (Allergy 10 mg PO DAILY #30 c aps 11/24/24 Unknown Rx Relief (loratadine)) metformin 1,000 mg tablet 1,000 mg PO BID blood sugar #60 11/24/24 Unknown Rx tabs aspirin 81 mg tablet,delayed 81 mg PO QDAY 11/26/24 Un known History release (Adult Aspirin Regimen) blood-glucose sensor (Dexcom G7 #12 ea 11/26/24 Unknow n Rx Sensor device) 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-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,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,cont #1 ea 11/26/24 Unknown Rx (Dexcom G7 Molder Machine) wheelchair with elevated leg rests #1 ea 11/26/24 Unkn own Rx fenofibrate nanocrystallized 145 145 mg PO DAILY kassidy sterol #90 12/18/24 Unknown Rx mg tablet tabs insulin glargine-yfgn 100 unit/mL 34 unit (0.34 mL) brewer bcut QHS #4 12/18/24 Unknown Rx (3 mL) subcutaneous pen pens potassium chloride 20 mEq 20 meq PO DAILY #90 tabs 08/03 Unknown Rx tablet,extended release sertraline 100 mg tablet 100 mg PO DAILY #90 tabs 08/03 Unknown Rx pen needle, diabetic 31 gauge x #100 ea 02/05/25 Unkno wn Rx 1/3 losartan 25 mg tablet 25 mg PO QDAY #90 tabs 02/11 Unknown Rx atorvastatin 40 mg tablet 40 mg PO QHS #90 tabs Unknown Rx sennosides 8.6 mg-docusate sodium 2 tab PO Q OTHER DAY 03/29/25 Unknown History 50 mg tablet (Stimulant Laxative Plus) trazodone 50 mg tablet 100 mg PO QHS 03/29/25 Unkno wn History omega 4-haj-qac-fish oil 300 1 cap PO QDAY 03/30/25 Un known History mg-1,000 mg capsule (Fish Oil) Allergy/AdvReac Type Severity Reaction Status Date / Time Iodinated Contrast Media Allergy Intermediate Hives Verified 04/16/25 10:33 (contrast dye - iodinated) cantaloupe Allergy Mild Hives Verified 04/16/25 10:33 mold Allergy Hives, Verified 04/16/25 10:33 sinus drainage Seasonal Allergies: Uncoded Allergy Hives, Verified 04/16/25 10:33 (environmental) sinus congestion, throat irritation rosuvastatin AdvReac Myalgia Verified 04/16/25 10:33 Family History Mother CVA (cerebral vascular accident) Heart disease Diabetes Brother CVA (cerebral vascular accident) Heart disease Diabetes type 1 Father Cancer pancreatic cancer Sister Heart disease Grandmother Diabetes type 1 Other Hypertension Surgical History S/P hemorrhoidectomy S/P nasal septoplasty H/O lumpectomy Hx of tonsillectomy Social History adopted: No household members: none housing: house number of children: 0 current occupational status: employed 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 substance use type: marijuana and other details: gummies diet: diabetic, low salt and other well-balanced diet: daily or most days caffeine: No do you feel safe at home: Yes Audit: Pertinent Findings Pertinent Findings EKG Perinent findings: 10/14/2024. Sinus rhythm with first-degree AV block. Left anterior fascicular block. Moderate voltage criteria for LVH. Echo (EF%) pertinent findings: 10/15/2024. EF is 65%. No regional wall motion abnormalities noted. No aortic valve stenosis noted. Consult pertinent findings: September 15, 2024. Dr. Lorenzana?cardiology. Patient has no cardiac symptoms and exam is unremarkable. EKG shows sinus rhythm with left axis deviation. Patient needs to continue to control his risk factors to prevent progression of his heart disease. Additional pertinent findings: Patient had a stroke October 14, 2024. MRI showed left thalamic and left centrum semiovale acute infarctions. He had hemiplegia affecting the right dominant side. Dysphagia?improved. Dysarthria?much improved. Facial droop due to acute stroke?much improved. Lid lag on the left is much better but with continued mild drooping of the mouth. Paresthesias of the skin. Patient was discharged on Cozaar with the intention of keeping his blood pressure below 130/80. Recommendation Anesthesia Recommendation Anesthesia recommendation: OPTIMIZED for anesthesia
--- OUTSIDE RECORDS SUMMARY | 2025-04-20 06:47 | XMS RPT_ITS | CCD ---
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 Name Role Phone Macho Lombardi Primary Care Provider Macho Lombardi Unavailable MACHO LOMBARDI Primary Care Unavail able Macho Lombardi Primary Care Provider Macho Lombardi Unavailable Macho Lombardi MD Primary Care Provide r Macho Lombardi MD Unavailable Macho Lombardi MD Primary Care Provide r Macho Lombardi MD Unavailable Cheyenne Lorenzana MD Unavailable Cheyenne Lorenzana MD Unavailable Macho Lombardi MD Unavailable MACHO LOMBARDI Attending Unavail able MACHO LOMBARDI Referring Unavail able MACHO LOMBARDI Primary Care Unavail able Macho Lombardi MD Primary Care Provide r Cheyenne Lorenzana MD Unavailable Macho Lombardi MD Unavailable Macho Lombardi MD Primary Care Provide r Cheyenne Lorenzana MD Unavailable Macho Lombardi MD Unavailable BREEMACHO MATT Primary Care Unavail able KEATONMARK, MACHO MATT Primary Care Unavail able CHEYENNE LORENZANA Referring Unavailabl e KANDER, CHEYENNE ZAVALA Attending Unavailabl e DAVMARK, MACHO MATT Primary Care Unavail able PHYSICIAN, NOT RECORDED Primary Care Unavaila ble SEMENTI DO, VERO KING Attending Unava ilable Unavailable Primary Care Provider Unavailkatrin e SELF Referring Unavailable TESTRAKE, MARY Attending Unavailable TESTRAKE, MARY Referring Unavailable DAVMARK MACHO MATT Primary Care Unavail able CORINA, CHEYENNE ZAVALA Attending Unavailabl e KANDER, CHEYENNE ZAVALA Attending Unavailabl e DAVAKIS, MACHO MATT Primary Care Unavail able DAVMARK, MACHO MATT Primary Care Unavail able CORINA, CHEYENNE ZAVALA Attending Unavailabl e DAVAKIS, MACHO Attending Unavailable MACHO LOMBARDI Attending Unavailable SemenVero ratliff Attending Unavaila ble Sementi, Vero King Referring Unavaila ble Lico TOM, Mary Primary Care Unavailable Mitchell Sheth Consulting Unavailable Mary Wakefield Attending Unavailable Lico TOM, Mary Referring Unavailable Viet Boyce Attending Unavailable Mali Ugarte Admitting Unavailable Rex Mccollum Consulting Unavailable ROSITA CUEVAS Primary Care Unavailable Alexis Lainez Referring Unavailable Adeli, Amir Consulting Unavailable Hinduja, Sarah Consulting Unavailable Ej, Teressa Consulting Unavailable Zha, Luisa Consulting Unavailable Bety, Ruddy Consulting Unavailable Cara, Almaz Consulting Unavailable Bittar, Horace Consulting Unavailable Elliot Tan Consulting Unavailable Jatin Smith Consulting Unavailable Lalitha Perdue Consulting Unavailable Mary Ibarra Consulting Unavailable Pamella Baptiste Consulting Unavailable Ridha, Mohamed Consulting Unavailable Zaliu, Mhd Ernesto Consulting UnavailDawson Suero Consulting Unavailable Cochran, Rami Consulting Unavailable Zeferino, Nba Consulting Unavailable Florence Melchor Consulting Unavailable Belen Ruth Consulting Unavailable Mali Ugarte Consulting Unavailable Mary Wake[place] Attending Unavailable Lico PAMary Referring Unavailable Lico TOM, Mary Primary Care Unavailable Mitchell Sheth Attending Unavailable Mary [place] Referring Unavailable Lico TOM, Mary Primary Care Unavailable Lico TOM, Mary Primary Care Unavailable Semengaudencio, Vero King Referring Unavaila ble Sergio Max Attending Unavailable Semengaudencio, eVro King Admitting Unavaila ble SHIVERS, ROSITA Primary Care Unavailable Sementi, Vero King Consulting Unavaila ble Sementi, Vero King Attending Unavaila ble BordnCassie walton Attending Unavailable Max Hill Attending Unavailable Care Physician, No Primary Primary Care Unava ilable SHISOFIA, ROSITA Referring Unavailable SHISOFIA, ROSITA Primary Care Unavailable Wayt PA, Mary Attending Unavailable Wayt PA, Mary Attending Unavailable Wayt PA, Mary Referring Unavailable Wayt PA, Mary Primary Care Unavailable Viet Boyce Attending Unavailable Quinten Evans Attending Unavailable Wayt PA, Mary Referring Unavailable Wayt PA, Mary Primary Care Unavailable Sementi, Vero King Admitting Unavaila ble Sementi, Vero King Attending Unavaila ble SHIVERS, ROSITA Primary Care Unavailable Quinten Evans Attending Unavailable Wayt PA, Mary Referring Unavailable Wayt PA, Mary Primary Care Unavailable Wayt PA, Mary Primary Care Unavailable Carmel Ross Attending Unavailable Wayt PA, Mary Primary Care Unavailable Wayt PA, Mary Attending Unavailable Wayt PA, Mary Referring Unavailable Rex Mccollum Consulting Unavailable Viet Boyce Attending Unavailable Mali Ugarte Admitting Unavailable Le, Alexis Referring Unavailable Care Physician, No Primary Primary Care Unava ilable Adeli, Amir Consulting Unavailable Hinduja, Sarah Consulting Unavailable Ej, Teressa Consulting Unavailable Zha, Luisa Consulting Unavailable Bety, Ruddy Consulting Unavailable Cara, Almaz Consulting Unavailable BittarHorace Consulting Unavailable Elliot Tan Consulting Unavailable Jatin Smith Consulting Unavailable Lalitha Perdue Consulting Unavailable Mary Ibarra Consulting Unavailable Pamella Baptiste Consulting Unavailable Ridha, Mohamed Consulting Unavailable Zaghlouleh, Mhd Ernesto Consulting UnavailDwason Suero Consulting Unavailable Cochran, Rami Consulting Unavailable Lamar Mcgarryhil Consulting Unavailable Florence Melchor Consulting Unavailable Belen Ruth Consulting Unavailable Mali Ugarte Consulting Unavailable Viet Boyce Consulting Unavailable Mali Ugarte Admitting Unavailable Mali Ugarte Attending Unavailable Mali Ugarte Consulting Unavailable Care Physician, No Primary Primary Care Unava ilable Le, Alexis Referring Unavailable Wayt PA, Mary Attending Unavailable Wayt PA, Mary Referring Unavailable Wayt PA, Mary Primary Care Unavailable Allergies Allergy Classification Reported Allergen(s) Allergy Type Date of Onset Reaction(s) Facility (20 sources) Ct: Iodinated Contrast- Oral And Iv Dye; Translations: [CT: IODINATED CONTRAST- ORAL AND IV DYE] Propensity to adverse reactions to drug 5 [facility] (17 sources) Melon; Translations: [MELON] Propensity to adverse reactions to drug 2 Unknown, Rash [facility] (2 sources) Iodinated Contrast Media; Translations: [IODINATED CONTRAST MEDIA] Drug Allergy 5 [facility] (1 source) cantaloupe allergenic extract Drug Allergy 5 [facility] (1 source) Mold Extract Drug Allergy 5 [facility] (1 source) rosuvastatin Drug Allergy 5 [facility] (1 source) Iodinated Contrast Media Drug allergy (disorder) 5 [facility] (1 source) Seasonal Allergies: Uncoded; Translations: [Seasonal Allergies: Uncoded] Propensity to adverse reactions (disorder) 5 [facility] Medications Current Medications Medication Drug Class(es) Dates Sig (Normalized) Sig (Original) aspirin 81 mg delayed release oral tablet (20 sources) Platelet Aggregation Inhibitor, Nonsteroidal Anti-inflammatory Drug Start: 10-19-2014 take 1 tablet by mouth once daily aspirin, enteric coated (ASPIRIN, ENTERIC COATED) 81 mg EC tablet Take 81 mg by mouth once daily. 10/19/2014 Active atorvastatin 40 mg oral tablet (8 sources) HMG-CoA Reductase Inhibitor Start: 11-24-2024 take 1 tablet by mouth once daily at bedtime atorvastatin (LIPITOR) 40 mg tablet Take 40 mg by mouth daily at bedtime. 11/24/2024 Active Start: 07-08-2024 take 1 tablet by [place] [facility] once daily atorvastatin (Lipitor) 20 MG tablet Take 1 (one) tablet (20 mg total) by mouth daily . 90 tablet 3 07/10/2024 Active Start: 12-29-2018 End: 04-20-2019 take 1 tablet by mouth once daily atorvastatin (LIPITOR) 40 MG tablet TAKE 1 TABLET BY MOUTH DAILY 90 tablet 1 12/29/2018 04/20/2019 Discontinued Drug or medicament (substanc e) (18 sources) fenofibrate 145 mg oral tablet (20 sources) Peroxisome Proliferator Receptor alpha Agonist Start: 04-20-2019 End: 09-15-2024 take 1 tablet by mouth once daily fenofibrate nanocrystallized (TRICOR) 145 mg tablet Take 145 mg by mouth once daily. 09/15/2024 Active icosapent ethyl 1000 mg oral capsule (14 sources) Start: 03-05-2023 End: 09-15-2024 take 2 capsules by mouth twice daily icosapent ethyL 1 gram cap Take 2 (two) capsules (2 g total) by mouth 2 (two) times a day . 360 capsule 3 09/15/2024 Active Start: 01-23-2021 icosapent ethy L (Vascepa) 1 gram cap Take 2 (two) capsules (2 g total) by mouth 2 (two) times a day . 360 capsule 3 01/23/2021 Active insulin glargine-yfgn (SEMGLEE) 100 unit/mL (3 mL) insulin pen (1 source) Start: 11-24-2024 insulin glargi ne-yfgn (SEMGLEE) 100 unit/mL (3 mL) insulin pen Inject 34 Units subcutaneously daily at bedtime. 11/24/2024 Active loratadine 10 mg oral tablet (20 sources) Start: 12-18-2024 take 1 tablet by mouth once daily as needed loratadine (CLARITIN) 10 mg tablet Take 1 tablet by mouth once daily as needed. FOR ALLERGY SYMPTOMS 12/18/2024 Active take 1 tablet by [place] [facility] once daily at breakfast loratadine (CLARITIN) 10 mg tablet Take 1 (one) tablet (10 mg total) by mouth daily with breakfast . Active losartan potassium 100 mg oral tablet (10 sources) Angiotensin 2 Receptor Shaina Start: 08-27-2023 End: 08-24-2024 take 1 tablet by mouth once daily losartan (COZAAR) 100 mg tablet Take 1 tablet by mouth once daily. 08/24/2024 Active metFORMIN hydrochloride 500 mg oral tablet (20 sources) Biguanide Start: 03-07-2016 take 2 tablets by mouth twice daily at mealtime metFORMIN (GLUCOPHAGE) 500 MG tablet Indications: do not take dos Take 2 (two) tablets (1,000 mg total) by mouth 2 (two) times a day with meals Reasons: do not take dos. 03/07/2016 Active Start: 03-07-2016 take 1 tablet by [place] [facility] twice daily at mealtime metFORMIN (GLUCOPHAGE) 500 MG tablet Indications: do not take dos Take 1 tablet by mouth 2 (two) times a day with meals Reasons: do not take dos. 0 03/07/2016 Active take 1 tablet by [place] [facility] twice daily metFORMIN (GLUCOPHAGE) 1,000 mg tablet Take 1,000 mg by mouth two times a day. Active potassium chloride 20 meq extended release oral tablet (1 source) Start: 11-24-2024 take 1 tablet by mouth once daily potassium chloride 20 mEq TbER Take 1 tablet by mouth once daily. 11/24/2024 Active predniSONE 50 mg oral tablet (8 sources) Start: 08-27-2023 predniSONE (DELTASONE) 50 MG tablet Take 1 tablet 13 hrs before testing, 1 tablet 7 hrs before testing and 1 hour before testing. Take last dose of Prednisone with Benadryl 50mg. . 3 tablet 08/27/2023 Active semaglutide (Ozempic) 0.25 mg or 0.5 mg (2 mg/3 mL) Pen (1 source) Start: 09-15-2024 semaglutide (Ozempic) 0.25 mg or 0.5 mg (2 mg/3 mL) Pen Indications: Type 2 diabetes mellitus without complication, without long-term current use of insulin (HCC) Inject 0.25 (one-quarter) mg under the skin every 7 days . 3 mL 09/15/2024 Active sertraline 100 mg oral tablet (1 source) Serotonin Reuptake Inhibitor Start: 11-24-2024 take 1 tablet by mouth once daily in the morning sertraline (ZOLOFT) 100 mg tablet Take 100 mg by mouth every morning. 11/24/2024 Active traZODone hydrochloride 50 mg oral tablet (1 source) Serotonin Reuptake Inhibitor Start: 11-24-2024 take 3 tablets by mouth once daily at bedtime traZODone (DESYREL) 50 mg tablet Take 150 mg by mouth daily at bedtime. 11/24/2024 Active ubidecarenone 10 mg oral capsule (12 sources) coenzyme Q10 10 mg capsule Take 10 mg by mouth 2 (two) times a day . Active UNKNOWN (11 sources) Completed/Discontinued Medications Medication Drug Class(es) Dates Sig (Normalized) Sig (Original) acetaminophen 325 mg / oxyCODONE hydrochloride 5 mg oral tablet (2 sources) Opioid Agonist Start: 03-26-2019 End: 04-20-2019 take 1 tablet by mouth every six hours as needed for pain oxyCODONE-acetaminophe n (PERCOCET) 5-325 mg per tablet Indications: Ureterolithiasis Take 1 (one) tablet by mouth every 6 (six) hours as needed for pain . 10 tablet 0 03/26/2019 04/20/2019 Discontinued gadoterate meglumine (DOTAREM) injection 20 mL (1 source) Start: 03-23-2020 End: 03-23-2020 gadoterate meglumine (DOTAREM) injection 20 mL 24 hr niacin 1000 mg extended release oral tablet (8 sources) Nicotinic Acid End: 01-16-2021 take 1 tablet by mouth once daily niacin (NIASPAN) 1000 MG CR tablet Take 1,000 mg by mouth nightly . 0 01/16/2021 Discontinued (Patient's Request) omega-3 fatty acids-vitamin E 1,000 mg cap (20 sources) End: 09-15-2024 take 1 tablet by mouth once daily omega-3 fatty acids-vitamin E 1,000 mg cap Indications: instructed to hold for surgery last dose 04/05 Take 1 tablet by mouth daily Reasons: instructed to hold for surgery last dose 04/05. 09/15/2024 Discontinued (Prescriber Discontinued) take 1 tablet by mouth once dee y omega-3 fatty acids-vitamin E 1,000 mg cap Indications: instructed to hold for surgery last dose 04/05 Take 1 tablet by mouth daily Reasons: instructed to hold for surgery last dose 04/05. Active take 1 tablet by mouth once dee y omega-3 fatty acids-vitamin E 1,000 mg cap Indications: instructed to hold for surgery last dose 04/05 Take 1 tablet by mouth daily Reasons: instructed to hold for surgery last dose 04/05. 0 Active take 1 tablet by mouth once dee y omega-3 fatty acids-vitamin E 1,000 mg cap Take 1 tablet by mouth daily. 0 Active ondansetron 4 mg disintegrating oral tablet (2 sources) Serotonin-3 Receptor Antagonist Start: 03-26-2019 End: 04-20-2019 take 1 tablet by mouth every eight hours as needed ondansetron (ZOFRAN ODT) 4 MG disintegrating tablet Dissolve 1 (one) tablet (4 mg total) on top of tongue every 8 (eight) hours as needed for nausea . 10 tablet 0 03/26/2019 04/20/2019 Discontinued rosuvastatin calcium 20 mg oral tablet (20 sources) HMG-CoA Reductase Inhibitor Start: 07-06-2024 End: 07-07-2024 take 1 tablet by mouth once daily rosuvastatin (CRESTOR) 20 MG tablet Take 1 (one) tablet (20 mg total) by mouth nightly . 90 tablet 3 07/06/2024 07/07/2024 Discontinued (Patient's Request) Start: 01-23-2021 End: 07-06-2024 take 1 tablet by mouth once daily rosuvastatin (CRESTOR) 10 MG tablet Take 1 (one) tablet (10 mg total) by mouth nightly . 90 tablet 3 08/27/2023 07/06/2024 Discontinued Problems Active Problems Problem Classification Problem Date Documented Date Episodic/Chronic Acute cerebrovascular disease (2 sources) Cerebral infarction, unspecified; Translations: [Cerebral infarction, unspecified] Onset: 5 Chronic Anxiety disorders (2 sources) Anxiety disorder, unspecified; Translations: [Anxiety disorder, unspecified] Onset: 5 Chronic Coronary atherosclerosis and other heart disease (20 sources) Coronary arteriosclerosis in [place] artery; Translations: [Atherosclerotic heart disease of [place] coronary artery without angina pectoris] Onset: 6 03-26-2016 Chronic Diabetes mellitus with complications (4 sources) Polyneuropathy due to type 2 diabetes mellitus; Translations: [Type 2 diabetes mellitus with diabetic polyneuropathy] Onset: 3 12-18-2024 Chronic Diabetes mellitus without complication (9 sources) Type 2 diabetes mellitus without complication; Translations: [Type 2 diabetes mellitus without complications] Onset: 3 Chronic Disorders of lipid metabolism (20 sources) Hyperlipidemia; Translations: [Mixed hypercholesterolemia and hypertriglyceridemia] Onset: 6 03-26-2016 Chronic Essential hypertension (11 sources) Hypertensive disorder; Translations: [Essential (primary) hypertension] Onset: 3 08-27-2023 Chronic Late effects of cerebrovascular disease (2 sources) Hemiplegia and hemiparesis following cerebral infarction affecting right dominant side; Translations: [Hemiplegia and hemiparesis following cerebral infarction affecting right dominant side] Onset: 5 Chronic Miscellaneous mental health disorders (3 sources) Abnormal sexual function; Translations: [Sexual dysfunction, unspecified] Onset: 3 08-27-2023 Episodic Mood disorders (2 sources) Mood disorders; Translations: [Depression, unspecified] Onset: 5 Osteoarthritis (1 source) Unilateral primary osteoarthritis, left hip; Translations: [Unilateral primary osteoarthritis, left hip] Onset: 5 Chronic Other and ill-defined heart disease (1 source) Other ill-defined heart diseases; Translations: [Other ill-defined heart diseases] Onset: 5 Chronic Other connective tissue disease (1 source) Pain of toe of left foot; Translations: [Pain in left toe(s)] 12-18-2024 Episodic Other connective tissue disease (1 source) Pain of toe of right foot; Translations: [Pain in right toe(s)] 12-18-2024 Episodic Other eye disorders (1 source) Fourth nerve palsy; Translations: [Fourth cranial nerve palsy, right] Episodic Other nervous system disorders (1 source) Other chronic pain; Translations: [Other chronic pain] Onset: 5 Chronic Other nervous system disorders (1 source) Dysarthria and anarthria; Translations: [Dysarthria and anarthria] Onset: 5 Episodic Other non-traumatic joint disorders (1 source) Pain in left hip; Translations: [Pain in left hip] Onset: 5 Episodic Other nutritional; endocrine; and metabolic disorders (1 source) Lipoprotein deficiency; Translations: [Lipoprotein deficiency] Onset: 5 Chronic Other skin disorders (1 source) Ingrowing toenail; Translations: [Ingrowing nail] 12-18-2024 Episodic Other skin disorders (1 source) Ingrowing nail; Translations: [Ingrowing nail] 12-18-2024 Episodic Other upper respiratory disease (1 source) Other allergic rhinitis; Translations: [Other allergic rhinitis] Onset: 5 Chronic Residual codes; unclassified (1 source) Obstructive sleep apnea (adult) (pediatric); Translations: [Obstructive sleep apnea (adult) (pediatric)] Onset: 5 Chronic Residual codes; unclassified (1 source) Pain, unspecified; Translations: [Pain] Onset: 5 Episodic Spondylosis; intervertebral disc disorders; other back problems (20 sources) Pain in cervical spine; Translations: [Cervicalgia] Onset: 6 08-30-2016 Episodic Substance-related disorders (1 source) Nicotine dependence, other tobacco product, uncomplicated; Translations: [Nicotine dependence, other tobacco product, uncomplicated] Onset: 5 Chronic Unclassified (1 source) Patient encounter status; Translations: [Encounter for imaging to screen for metal prior to MRI] Unclassified (1 source) Other intervertebral disc degeneration, lumbar region with discogenic back pain and lower extremity pain; Translations: [Other intervertebral disc degeneration, lumbar region with discogenic back pain and lower extremity pain] Onset: 5 Unclassified (1 source) Alcohol use, unspecified, uncomplicated; Translations: [Alcohol use, unspecified, uncomplicated] Onset: 5 Unclassified (1 source) Obesity, class 1; Translations: [Obesity, class 1] Onset: 5 Past or Other Problems Problem Classification Problem Date Documented Da te Episodic/Chronic Calculus of urinary tract (3 sources) Kidney stone; Translations: [Ureteric stone] Episodic Fluid and electrolyte disorders (1 source) Dehydration; Translations: [Dehydration] Onset: 11-26-2024 Episodic Genitourinary symptoms and ill-defined conditions (1 source) Retention of urine, unspecified; Translations: [Retention of urine, unspecified] Onset: 11-26-2024 Episodic Malaise and fatigue (1 source) Other malaise; Translations: [Other malaise] Onset: 11-26-2024 Episodic Other and unspecified benign neoplasm (1 source) Polyp of colon; Translations: [Polyp of colon] Onset: 11-26-2024 Episodic Other connective tissue disease (1 source) Facial weakness; Translations: [Facial weakness] Onset: 11-26-2024 Episodic Other connective tissue disease (1 source) Other symptoms and signs involving the nervous system; Translations: [Other symptoms and signs involving the nervous system] Onset: 10-16-2024 Episodic Other gastrointestinal disorders (1 source) Dysphagia, oropharyngeal phase; Translations: [Dysphagia, oropharyngeal phase] Onset: 11-26-2024 Episodic Other liver diseases (1 source) Increased creatine kinase level; Translations: [Elevated CPK] Episodic Other nervous system disorders (1 source) Paresthesia of skin; Translations: [Paresthesia of skin] Onset: 11-26-2024 Episodic Other non-traumatic joint disorders (9 sources) Hip pain; Translations: [Pain in right hip] Onset: 08-27-2023 08-27-2023 Episodic Residual codes; unclassified (1 source) Insomnia, unspecified; Translations: [Insomnia, unspecified] Onset: 11-26-2024 Episodic Results Test Name Value Interpretation Reference Range Facility MR/PAT.ANEon 04-16-2025 MR/PAT.ANE Normal [facility] Re-Evaluation - PT (1)on Re-Evaluation - PT (1) Normal [facility] Surgery Visit Reporton 03-30 Surgery Visit Report Normal [facility] Orthopedic Visit Reporton Orthopedic Visit Report Normal [facility] Re-Evalution OTon 03-01-2025 Re-Evalution OT Normal [facility] CBC W/Diff, Automatedon 06- Absolute Lymph 1.86 X10 3/uL Normal 0.83-4.51 [facility] Comment on above: Performed By: #### L 100.0100, L501.9985, [id number] ####[facility] [id number] [place], [address] Absolute Neut 5.9 X10 3/uL Normal 2.0-7.7 [facility] Comment on above: Performed By: #### L 100.0100, L501.9985, [id number] ####[facility] [id number] [place], [address] Basophils/100 WBC (Bld) 0.5 % Normal 0-1 [facility] Comment on above: Performed By: #### L 100.0100, L501.9985, [id number] ####[facility] [id number] [place], [address] Eosinophils/100 WBC (Bld) 1.6 % Normal 0-5 [facility] Comment on above: Performed By: #### L 100.0100, L501.9985, [id number] ####[facility] [id number] [place], [address] Erythrocyte distribution width (RBC) [Ratio] 12.5 % Normal 11.6-14.6 [facility] Comment on above: Performed By: #### L 100.0100, [id number], [id number] ####[facility] [id number] [place], [address] Hematocrit (Bld) [Volume fraction] 41.7 % Normal 40-54 [facility] Comment on above: Performed By: #### L 100.0100, [id number], [id number] ####[facility] [address] [place], [address] Hemoglobin (Bld) [Mass/Vol] 13.9 g/dL Normal 13.0-16.5 [facility] Comment on above: Performed By: #### L 100.0100, [id number], [id number] ####[facility] [id number] [place], [address] IG% 0.300 Normal 0.0-0.9 [facility] Comment on above: Result Comment: IG% - Immature Granulocytes (promyelocytes, myelocytes andmetamyelocytes) > 1% indicates that a LEFT SHIFT is Present. Performed By: #### L 100.0100, L501.9985, [id number] ####[facility] [address] [place], [address] Lymphocytes/100 WBC (Bld) 21.6 % Normal 19-41 [facility] Comment on above: Performed By: #### L 100.0100, [id number], [id number] ####[facility] [id number] [place], [address] MCH (RBC) [Entitic mass] 30.7 pg Normal 27.0-32.0 [facility] Comment on above: Performed By: #### L 100.0100, [id number], [id number] ####[facility] [address] [place], [address] MCHC (RBC) [Mass/Vol] 33.3 g/dL Normal 32-36 [facility] Comment on above: Performed By: #### L 100.0100, [id number], [id number] ####[facility] [address] [place], [address] MCV (RBC) [Entitic vol] 92.1 fL Normal 80-94 [facility] Comment on above: Performed By: #### L 100.0100, [id number], [id number] ####[facility] [id number] [place], [address] Monocytes/100 WBC (Bld) 7.6 % Normal 0-10 [facility] Comment on above: Performed By: #### L 100.0100, [id number], [id number] ####[facility] [address] [place], [address] Neutrophils/100 WBC (Bld) 68.4 % Normal 47-70 [facility] Comment on above: Performed By: #### L 100.0100, [id number], [id number] ####[facility] [address] [place], [address] Nucleated RBC (Bld) [#/Vol] 0 10*3/uL Normal 0-5 [facility] Comment on above: Performed By: #### L 100.0100, [id number], L500.4050 ####[facility] [address] [place], [address] Platelet mean volume (Bld) [Entitic vol] 10.9 fL Normal 6.2-12.0 [facility] Comment on above: Performed By: #### L 100.0100, L501.9985, L500.4050 ####[facility] [address] [place], [address] Platelets (Bld) [#/Vol] 320 10*3/uL Normal 150-450 [facility] Comment on above: Performed By: #### L 100.0100, L501.9985, L500.4050 ####[facility] [address] [place], [address] RBC (Bld) [#/Vol] 4.53 10*6/uL Low 4.6-6.2 [facility] Comment on above: Performed By: #### L 100.0100, L501.9985, L500.4050 ####[facility] [address] [place], [address] RDW SD 42.1 fl Normal 35.1-43.9 [facility] Comment on above: Performed By: #### L 100.0100, L501.9985, L500.4050 ####[facility] [address] [place], [address] WBC (Bld) [#/Vol] 8.6 10*3/uL Normal 4.4-11.0 [facility] Comment on above: Performed By: #### L 100.0100, L501.9985, L500.4050 ####[facility] [address] [place], [address] Comprehensive Metabolic [facility] 02-11-2025 Albumin [Mass/Vol] 4.5 g/dL Normal 3.4-4.8 [facility] Comment on above: Performed By: #### L 100.0100, L501.9985, L500.4050 ####[facility] [address] [place], [address] Albumin/Globulin [Mass ratio] 1.5 {ratio} Normal 0.9-2.4 [facility] Comment on above: Performed By: #### L 100.0100, L501.9985, L500.4050 ####[facility] [address] [place], [address] ALK PHOS 55 U/L Normal 40-129 [facility] Comment on above: Performed By: #### L 100.0100, L501.9985, L500.4050 ####[facility] [address] [place], [address] ALT [Catalytic activity/Vol] 12 U/L Normal <=46 [facility] Comment on above: Performed By: #### L 100.0100, L501.9985, L500.4050 ####[facility] [address] [place], [address] AST [Catalytic activity/Vol] 20 U/L Normal <=37 [facility] Comment on above: Performed By: #### L 100.0100, L501.9985, L500.4050 ####[facility] [address] [place], [address] Bilirubin [Mass/Vol] 0.31 mg/dL Normal 0.00-1.30 [facility] Comment on above: Performed By: #### L 100.0100, L501.9985, L500.4050 ####[facility] [address] [place], [address] BUN/CRE 23.6 RATIO High 10-20 [facility] Comment on above: Performed By: #### L 100.0100, L501.9985, L500.4050 ####[facility] [address] [place], [address] Calcium [Mass/Vol] 9.7 mg/dL Normal 7.6-11.0 [facility] Comment on above: Performed By: #### L 100.0100, L501.9985, L500.4050 ####[facility] [address] [place], [address] Chloride [Moles/Vol] 103 mmol/L Normal 98-108 [facility] Comment on above: Performed By: #### L 100.0100, L501.9985, L500.4050 ####[facility] [address] [place], [address] CO2 [Moles/Vol] 23.7 mmol/L Normal 21.0-32.0 [facility] Comment on above: Performed By: #### L 100.0100, L501.9985, L500.4050 ####[facility] [address] [place], [address] Creatinine [Mass/Vol] 0.77 mg/dL Normal 0.70-1.20 [facility] Comment on above: Performed By: #### L 100.0100, L501.9985, L500.4050 ####[facility] [address] [place], [address] GAP 13 Normal 5-15 [facility] Comment on above: Performed By: #### L 100.0100, L501.9985, L500.4050 ####[facility] [address] [place], [address] GFR/1.73 sq M.predicted among non-blacks MDRD (S/P/Bld) [Vol rate/Area] 100 mL/min/{1.73_m2} Normal >60 [facility] Comment on above: Result Comment: mL/m in/1.73m2 CKD-EPI Creatinine Equation (2020) Performed By: #### L 100.0100, L501.9985, L500.4050 ####[facility] [address] [place], [address] Globulin (S) [Mass/Vol] 3.0 g/dL Normal 2.2-4.2 [facility] Comment on above: Performed By: #### L 100.0100, L501.9985, L500.4050 ####[facility] [address] [place], [address] Glucose [Mass/Vol] 108 mg/dL High 70-99 [facility] Comment on above: Performed By: #### L 100.0100, L501.9985, L500.4050 ####[facility] [address] [place], [address] Potassium [Moles/Vol] 4.2 mmol/L Normal 3.3-5.1 [facility] Comment on above: Performed By: #### L 100.0100, L501.9985, L500.4050 ####[facility] [address] [place], [address] Sodium [Moles/Vol] 140 mmol/L Normal 133-145 [facility] Comment on above: Performed By: #### L 100.0100, L501.9985, L500.4050 ####[facility] [address] [place], [address] T PROT 7.5 g/dL Normal 5.9-8.4 [facility] Comment on above: Performed By: #### L 100.0100, L501.9985, L500.4050 ####[facility] [address] [place], [address] Urea nitrogen [Mass/Vol] 18 mg/dL Normal 4-19 [facility] Comment on above: Performed By: #### L 100.0100, L501.9985, L500.4050 ####[facility] [address] [place], [place], [address] Hemoglobin A1con 02-11-2025 HbA1c (Bld) [Mass fraction] 5.2 % Normal <=5.6 [facility] Comment on above: Result Comment: Norm al < 5.7 % Prediabetic 5.7 - 6.4 % Diabetic >or= 6.5 % Please note range changes. Performed By: #### L 100.0100, L501.9985, L500.4050 ####[facility] [address] [place], [place], [address] Internal Medicine Office Vis iton 02-11-2025 Internal Medicine Office Visit Normal [facility] HIP, UNI W/ Pelvis 2-3 Views on 01-27-2025 HIP, UNI W/ Pelvis 2-3 Views Normal [facility] Lumbar Spine 2 or 3 Viewson 01-27-2025 Lumbar Spine 2 or 3 Views Normal [facility] MR/BMS.BPon 01-27-2025 MR/BMS.BP Normal [facility] Inital Evaluation (1) - PTon 01-25-2025 Inital Evaluation (1) - PT Normal [facility] OT General Evaluationon 01-07 OT General Evaluation Normal [facility] SP/HP.SP.Diaz 01-25-2025 SP/HP.SP.EV Normal [facility] Internal Medicine Office Vis iton 12-31-2024 Internal Medicine Office Visit Normal [facility] CNOVon 12-18-2024 CNOV Office Visit (PODIWS ) LAWRENCE CRISTINA V ([id number]) 1960 M Date Time Provider Department 12/18/24 11:00 AM MARY NAVARRO During your visit today, we recorded the following information about you: Mindi Bowen MA 12/19/2024 11:25 AM Signed AMB ROOMING INTAKE FLOWSHEET DATA Risk Screening Do you have concerns about personal safety or safety in the home?: No Patient presents with: Left Foot - New: DM foot care Right Foot - New: DM foot care Pt here today to become established patient for routine DM nail care. Formerly seen Podiatry in [place] two years ago. Moved to this area and has not seen anyone since. Recent hx of CVA. Pt treated with Metformin and Semglee for DM. Does have some numbness, tingling, and burning in his right foot. This started after having CVA 10/2024. AMADOR Metzger Matthew 12/19/2024 11:25 AM Signed Subjective Lawrence is a 64-year-old male with a history of diabetes mellitus and recent CVA, presenting for a diabetic foot exam and foot care. Diabetes Mellitus: - Diagnosed in 2012. - Reports mild burning, tingling, and numbness in feet. - Denies wounds, sores, or amputations. - Last HbA1c in September was 8.1%; recent HbA1c reportedly 6.5%. CVA: - Occurred on October 14. - No longer on anticoagulant therapy. Toenail Care: - Toenails cause pain when too long. - Uses a rubber grinder for nail maintenance. Musculoskeletal: (+) toe pain with overgrown nails Skin: (-) nonhealing wounds or sores Neurological: (+) burning/tingling/numb ness in feet PAST MEDICAL HISTORY Diagnosis Date CVA (cerebral vascular accident) (HCC) Diabetes mellitus (HCC) ALLERGIES Allergen Reactions Melon Rash Iodinated Contrast * Hives No family history on file. Objective There were no vitals taken for this visit. - Cardiovascular: Dorsalis pedis and posterior tibial pulses palpable bilaterally. Capillary refill time brisk in bilateral hallux. - Skin: Skin temperature warm to cool; hair growth present bilaterally; no open sores, calluses, or ulcerations noted; skin color normal. toenails are incurvated with pain. no local signs of bacterial infection. - Neurological: Protective sensation intact bilaterally; decreased vibratory sensation in bilateral hallux. - Musculoskeletal: - Bilateral Hallux: - Toenails with tendency to ingrow along the medial nail border. Labs: Hemoglobin A1c: 6.5 (September) Hemoglobin A1c: 8.1 1. Diabetic polyneuropathy associated with type 2 diabetes mellitus (HCC) (E11.42) - Diabetes mellitus type 2 for 12 years; recent HbA1c in September was 8.1%. - Neurological exam reveals intact protective sensation bilaterally, but decreased vibratory sensation at the hallux bilaterally, indicating early signs of neuropathy. - Educated on the importance of glycemic control to slow neuropathy progression; patient reports recent HbA1c of 6.5%. - Advised against barefoot walking and recommended wearing footwear with a hard sole even indoors to prevent injuries. - Instructed on daily foot inspection and application of lotion to prevent dryness. 2. Ingrowing toenail (L60.0) 3. Onychocryptosis (L60.0) 4. Pain in toe of left foot (M79.675) 5. Pain in toe of right foot (M79.674) - Bilateral hallux toenails show a tendency to ingrow along the medial nail border, causing pain when toenails are too long. - Trimmed toenails 1-5 b/l during the visit. - Discussed criteria for insurance coverage of nail care, including pain and risk factors. - Educated on proper nail care, advising to cut toenails straight across to prevent ingrowth. - Scheduled follow-up in 6 months for nail care, with instructions to contact the office if any problems arise before then. - could consider partial or total nail removal via chemical matrixectomy but would need to keep sugars/a1c under 8.0 Attestation Recording using [employer] [place] software for draft documentation of the visit was discussed with the patient/authorized front desk representative; all questions welcomed and answered. Patient/authorized front desk representative agreed to proceed PEGGY Ayala Matthew 12/18/2024 11:36 AM Signed Avoid walking barefoot; wear shoes with hard soles, such as slippers or Crocs, even indoors. - Inspect your feet daily for sores or injuries, including between your toes. - Apply lotion to your feet regularly to prevent dryness. - Monitor your blood sugar levels and maintain a healthy diet and exercise routine to help control your A1c and slow the progression of neuropathy. - Trim your toenails straight across to prevent ingrown toenails. - Next follow-up appointment is in 6 months. - Contact the office and speak to the podiatry nurse if you develop any foot problems before your next appointment. Diabetes Foot Care Instructions When you have diabetes, proper foot care i (more content not included)... Normal [facility] Internal Medicine Office Vis iton 11-26-2024 Internal Medicine Office Visit Normal [facility] Bedside Glucoseon 11-24-2024 FINGERSTICK GLU 105 mg/dL Normal 74-106 [facility] Comment on above: Result Comment: MAYRA GEMENT OF PATIENT CARE PER NURSING PROTOCOL Performed By: #### L 501.080 ####[facility] [address] [facility] [id number] FINGERSTICK GLU 107 mg/dL High 74-106 [facility] Comment on above: Result Comment: MAYRA GEMENT OF PATIENT CARE PER NURSING PROTOCOL Performed By: #### L 501.080 ####[facility] [address] [facility] [id number] CBC-Complete Blood Cnt No Di ffon 11-24-2024 Erythrocyte distribution width (RBC) [Ratio] 12.8 % Normal 11.6-14.6 [facility] Comment on above: Performed By: #### L 500.4100, L100.0500, L501.2300, L500.4050, L501.5200 ####[facility] [address] [facility] [address] Hematocrit (Bld) [Volume fraction] 38.7 % Low 40-54 [facility] Comment on above: Performed By: #### L 500.4100, L100.0500, L501.2300, L500.4050, L501.5200 ####[facility] [address] [place], [address] Hemoglobin (Bld) [Mass/Vol] 13.1 g/dL Normal 13.0-16.5 [facility] Comment on above: Performed By: #### L 500.4100, L100.0500, L501.2300, L500.4050, L501.5200 ####[facility] [address] [place], [address] MCH (RBC) [Entitic mass] 31.5 pg Normal 27.0-32.0 [facility] Comment on above: Performed By: #### L 500.4100, L100.0500, L501.2300, L500.4050, L501.5200 ####[facility] [address] [place], [address] MCHC (RBC) [Mass/Vol] 33.9 g/dL Normal 32-36 [facility] Comment on above: Performed By: #### L 500.4100, L100.0500, L501.2300, L500.4050, L501.5200 ####[facility] [address] [place], [address] MCV (RBC) [Entitic vol] 93.0 fL Normal 80-94 [facility] Comment on above: Performed By: #### L 500.4100, L100.0500, L501.2300, L500.4050, L501.5200 ####[facility] [address] [place], [address] Platelet mean volume (Bld) [Entitic vol] 9.9 fL Normal 6.2-12.0 [facility] Comment on above: Performed By: #### L 500.4100, L100.0500, L501.2300, L500.4050, L501.5200 ####[facility] [address] [place], [address] Platelets (Bld) [#/Vol] 327 10*3/uL Normal 150-450 [facility] Comment on above: Performed By: #### L 500.4100, L100.0500, L501.2300, L500.4050, L501.5200 ####[facility] [address] [place], [address] RBC (Bld) [#/Vol] 4.16 10*6/uL Low 4.6-6.2 [facility] Comment on above: Performed By: #### L 500.4100, L100.0500, L501.2300, L500.4050, L501.5200 ####[facility] [address] [place], [address] RDW SD 43.4 fl Normal 35.1-43.9 [facility] Comment on above: Performed By: #### L 500.4100, L100.0500, L501.2300, L500.4050, L501.5200 ####[facility] [address] [place], [address] WBC (Bld) [#/Vol] 9.1 10*3/uL Normal 4.4-11.0 [facility] Comment on above: Performed By: #### L 500.4100, L100.0500, L501.2300, L500.4050, L501.5200 ####[facility] [address] [place], [address] Comprehensive Metabolic Prof [facility] 11-24-2024 Albumin [Mass/Vol] 4.0 g/dL Normal 3.4-4.8 [facility] Comment on above: Performed By: #### L 500.4100, L100.0500, L501.2300, L500.4050, L501.5200 ####[facility] [address] [place], [address] Albumin/Globulin [Mass ratio] 1.5 {ratio} Normal 0.9-2.4 [facility] Comment on above: Performed By: #### L 500.4100, L100.0500, L501.2300, L500.4050, L501.5200 ####[facility] [address] [place], [address] ALK PHOS 46 U/L Normal 40-129 [facility] Comment on above: Performed By: #### L 500.4100, L100.0500, L501.2300, L500.4050, L501.5200 ####[facility] [address] [place], [address] ALT [Catalytic activity/Vol] 17 U/L Normal <=46 [facility] Comment on above: Performed By: #### L 500.4100, L100.0500, L501.2300, L500.4050, L501.5200 ####[facility] [address] [place], [address] AST [Catalytic activity/Vol] 18 U/L Normal <=37 [facility] Comment on above: Performed By: #### L 500.4100, L100.0500, L501.2300, L500.4050, L501.5200 ####[facility] [address] [place], [address] Bilirubin [Mass/Vol] 0.29 mg/dL Normal 0.00-1.30 [facility] Comment on above: Performed By: #### L 500.4100, L100.0500, L501.2300, L500.4050, L501.5200 ####[facility] [address] [place], [address] BUN/CRE 16.4 RATIO Normal 10-20 [facility] Comment on above: Performed By: #### L 500.4100, L100.0500, L501.2300, L500.4050, L501.5200 ####[facility] [address] [place], [address] Calcium [Mass/Vol] 9.3 mg/dL Normal 7.6-11.0 [facility] Comment on above: Performed By: #### L 500.4100, L100.0500, L501.2300, L500.4050, L501.5200 ####[facility] [address] [place], [address] Chloride [Moles/Vol] 105 mmol/L Normal 98-108 [facility] Comment on above: Performed By: #### L 500.4100, L100.0500, L501.2300, L500.4050, L501.5200 ####[facility] [address] [place], [address] CO2 [Moles/Vol] 24.7 mmol/L Normal 21.0-32.0 [facility] Comment on above: Performed By: #### L 500.4100, L100.0500, L501.2300, L500.4050, L501.5200 ####[facility] [address] [place], [address] Creatinine [Mass/Vol] 0.87 mg/dL Normal 0.70-1.20 [facility] Comment on above: Performed By: #### L 500.4100, L100.0500, L501.2300, L500.4050, L501.5200 ####[facility] [address] [place], [address] ECRCL 90.90 ml/min Normal 50-250 [facility] Comment on above: Performed By: #### L 500.4100, L100.0500, L501.2300, L500.4050, L501.5200 ####[facility] [address] [place], [address] GAP 12 Normal 5-15 [facility] Comment on above: Performed By: #### L 500.4100, L100.0500, L501.2300, L500.4050, L501.5200 ####[facility] [address] [place], [address] GFR/1.73 sq M.predicted among non-blacks MDRD (S/P/Bld) [Vol rate/Area] 96 mL/min/{1.73_m2} Normal >60 [facility] Comment on above: Result Comment: mL/m in/1.73m2 CKD-EPI Creatinine Equation (2020) Performed By: #### L 500.4100, L100.0500, L501.2300, L500.4050, L501.5200 ####[facility] [address] [place], [address] Globulin (S) [Mass/Vol] 2.6 g/dL Normal 2.2-4.2 [facility] Comment on above: Performed By: #### L 500.4100, L100.0500, L501.2300, L500.4050, L501.5200 ####[facility] [address] [place], [address] Glucose [Mass/Vol] 97 mg/dL Normal 70-99 [facility] Comment on above: Performed By: #### L 500.4100, L100.0500, L501.2300, L500.4050, L501.5200 ####[facility] [address] [place], [address] Potassium [Moles/Vol] 3.8 mmol/L Normal 3.3-5.1 [facility] Comment on above: Performed By: #### L 500.4100, L100.0500, L501.2300, L500.4050, L501.5200 ####[facility] [address] [place], [address] Sodium [Moles/Vol] 142 mmol/L Normal 133-145 [facility] Comment on above: Performed By: #### L 500.4100, L100.0500, L501.2300, L500.4050, L501.5200 ####[facility] [address] [place], [address] T PROT 6.7 g/dL Normal 5.9-8.4 [facility] Comment on above: Performed By: #### L 500.4100, L100.0500, L501.2300, L500.4050, L501.5200 ####[facility] [address] [place], [address] Urea nitrogen [Mass/Vol] 14 mg/dL Normal 4-19 [facility] Comment on above: Performed By: #### L 500.4100, L100.0500, L501.2300, L500.4050, L501.5200 ####[facility] [address] [place], [address] Discharge Instructionon - Discharge Instruction Normal [facility] Lipid Profileon 11-24-2024 CHOL:HDL 3.53 Normal [facility] Comment on above: Performed By: #### L 500.4100, L100.0500, L501.2300, L500.4050, L501.5200 ####[facility] [address] [place], [address] Cholesterol [Mass/Vol] 101 mg/dL Normal <=200 [facility] Comment on above: Result Comment: Chol esterol level, Desirable <200 mg/dLBorderline high cholesterol 200-239 mg/dLHigh cholesterol >=240 mg/dLRecommendations of the NCEP Adult Treatment Panel for thefollowing risk-cutoff thresholds for the [place] Americanpopulation. Performed By: #### L 500.4100, L100.0500, L501.2300, L500.4050, L501.5200 ####[facility] [address] [place], [address] Cholesterol in HDL [Mass/Vol] 29 mg/dL Low [facility] Comment on above: Result Comment: Meghana onal Cholesterol Education Program (NCEP) guidelines:<40 mg/dL: Low HDL-cholesterol (major risk factor for CHD)>= 60 mg/dL: High HDL-cholesterol (negative risk factor forCHD)HDL-cholesterol is affected by a number of factors, e.g.smoking, exercise, hormones, sex and age. Performed By: #### L 500.4100, L100.0500, L501.2300, L500.4050, L501.5200 ####[facility] [address] [place], [address] Cholesterol in LDL [Mass/Vol] 43 mg/dL Normal [facility] Comment on above: Result Comment: Bord caspoj=810-255 mg/dL Higher Kvtx=074 mg/dL or greater Performed By: #### L 500.4100, L100.0500, L501.2300, L500.4050, L501.5200 ####[facility] [address] [place], [address] Cholesterol in VLDL [Mass/Vol] 30 mg/dL Normal 5-40 [facility] Comment on above: Performed By: #### L 500.4100, L100.0500, L501.2300, L500.4050, L501.5200 ####[facility] [address] [place], [address] Triglyceride [Mass/Vol] 148 mg/dL Normal [facility] Comment on above: Result Comment: The drugs N-Acetylcysteine and Metamizole may falselydepress this assay.Normal range: <150 mg/dLBorderline High: 150-199 mg/dLHigh: 200-499 mg/dLVery High: >500 mg/dL Performed By: #### L 500.4100, L100.0500, L501.2300, L500.4050, L501.5200 ####[facility] [address] [place], [address] Magnesiumon 11-24-2024 Magnesium [Mass/Vol] 2.1 mg/dL Normal 1.5-2.2 [facility] Comment on above: Performed By: #### L 500.4100, L100.0500, L501.2300, L500.4050, L501.5200 ####[facility] [address] [place], [address] Phosphoruson 11-24-2024 Phosphate [Mass/Vol] 3.7 mg/dL Normal 2.7-4.5 [facility] Comment on above: Performed By: #### L 500.4100, L100.0500, L501.2300, L500.4050, L501.5200 ####[facility] [address] [place], [address] Bedside Glucoseon 11-23-2024 FINGERSTICK GLU 107 mg/dL High 74-106 [facility] Comment on above: Result Comment: MAYRA GONZALEZ OF PATIENT CARE PER NURSING PROTOCOL Performed By: #### L 501.080 ####[facility] [address] [place], [address] FINGERSTICK GLU 102 mg/dL Normal 74-106 [facility] Comment on above: Result Comment: MAYRA LEVIENT OF PATIENT CARE PER NURSING PROTOCOL Performed By: #### L 501.080 ####[facility] [address] [place], [address] FINGERSTICK GLU 102 mg/dL Normal 74-106 [facility] Comment on above: Result Comment: MAYRA GEMENT OF PATIENT CARE PER NURSING PROTOCOL Performed By: #### L 501.080 ####[facility] [address] [place], [address] Bedside Glucoseon 11-21-2024 FINGERSTICK GLU 112 mg/dL High 74-106 [facility] Comment on above: Result Comment: MAYRA GEMENT OF PATIENT CARE PER NURSING PROTOCOL Performed By: #### L 501.080 ####[facility] [address] [place], [address] Bedside Glucoseon 11-20-2024 FINGERSTICK GLU 104 mg/dL Normal 74-106 [facility] Comment on above: Result Comment: MAYRA GEMENT OF PATIENT CARE PER NURSING PROTOCOL Performed By: #### L 501.080 ####[facility] [address] [place], [address] Bedside Glucoseon 11-19-2024 FINGERSTICK GLU 111 mg/dL High 74-106 [facility] Comment on above: Result Comment: MAYRA GEMENT OF PATIENT CARE PER NURSING PROTOCOL Performed By: #### L 501.080 ####[facility] [address] [place], [address] Bedside Glucoseon 11-18-2024 FINGERSTICK GLU 110 mg/dL High 74-106 [facility] Comment on above: Result Comment: MAYRA GEMENT OF PATIENT CARE PER NURSING PROTOCOL Performed By: #### L 501.080 ####[facility] [address] [place], [address] Bedside Glucoseon 11-17-2024 FINGERSTICK GLU 102 mg/dL Normal 74-106 [facility] Comment on above: Result Comment: MAYRA GEMENT OF PATIENT CARE PER NURSING PROTOCOL Performed By: #### L 501.080 ####[facility] [address] [place], [address] FINGERSTICK GLU 129 mg/dL High 74-106 [facility] Comment on above: Result Comment: MAYRA GEMENT OF PATIENT CARE PER NURSING PROTOCOL Performed By: #### L 501.080 ####[facility] [address] [place], [address] FINGERSTICK GLU 106 mg/dL Normal 74-106 [facility] Comment on above: Result Comment: MAYRA GEMENT OF PATIENT CARE PER NURSING PROTOCOL Performed By: #### L 501.080 ####[facility] [address] [place], [address] Bedside Glucoseon 11-15-2024 FINGERSTICK GLU 102 mg/dL Normal 74-106 [facility] Comment on above: Result Comment: MAYRA GEMENT OF PATIENT CARE PER NURSING PROTOCOL Performed By: #### L 501.080 ####[facility] [address] [place], [address] Bedside Glucoseon 11-14-2024 FINGERSTICK GLU 147 mg/dL High 74-106 [facility] Comment on above: Result Comment: MAYRA GEMENT OF PATIENT CARE PER NURSING PROTOCOL Performed By: #### L 501.080 ####[facility] [address] [place], [address] FINGERSTICK GLU 114 mg/dL High 74-106 [facility] Comment on above: Result Comment: MAYRA GEMENT OF PATIENT CARE PER NURSING PROTOCOL Performed By: #### L 501.080 ####[facility] [address] [place], [address] Basic Metabolic Profile (BMP )on 11-13-2024 BUN/CRE 16.9 RATIO Normal 10-20 [facility] Comment on above: Performed By: #### L 501.5200, L500.2500, L100.0600 ####[facility] [address] [place], [address] Calcium [Mass/Vol] 9.7 mg/dL Normal 7.6-11.0 [facility] Comment on above: Performed By: #### L 501.5200, L500.2500, L100.0600 ####[facility] [address] [place], [address] Chloride [Moles/Vol] 104 mmol/L Normal 98-108 [facility] Comment on above: Performed By: #### L 501.5200, L500.2500, L100.0600 ####[facility] [address] [place], [address] CO2 [Moles/Vol] 26.3 mmol/L Normal 21.0-32.0 [facility] Comment on above: Performed By: #### L 501.5200, L500.2500, L100.0600 ####[facility] [address] [place], [address] Creatinine [Mass/Vol] 0.94 mg/dL Normal 0.70-1.20 [facility] Comment on above: Performed By: #### L 501.5200, L500.2500, L100.0600 ####[facility] [address] [place], [address] ECRCL 83.95 ml/min Normal 50-250 [facility] Comment on above: Performed By: #### L 501.5200, L500.2500, L100.0600 ####[facility] [address] [place], [address] GAP 12 Normal 5-15 [facility] Comment on above: Performed By: #### L 501.5200, L500.2500, L100.0600 ####[facility] [address] [place], [address] GFR/1.73 sq M.predicted among non-blacks MDRD (S/P/Bld) [Vol rate/Area] 90 mL/min/{1.73_m2} Normal >60 [facility] Comment on above: Result Comment: mL/m in/1.73m2 CKD-EPI Creatinine Equation (2020) Performed By: #### L 501.5200, L500.2500, L100.0600 ####[facility] [address] [place], [address] Glucose [Mass/Vol] 148 mg/dL High 70-99 [facility] Comment on above: Performed By: #### L 501.5200, L500.2500, L100.0600 ####[facility] [address] [place], [address] Potassium [Moles/Vol] 4.2 mmol/L Normal 3.3-5.1 [facility] Comment on above: Performed By: #### L 501.5200, L500.2500, L100.0600 ####[facility] [address] [place], [address] Sodium [Moles/Vol] 142 mmol/L Normal 133-145 [facility] Comment on above: Performed By: #### L 501.5200, L500.2500, L100.0600 ####[facility] [address] [place], [address] Urea nitrogen [Mass/Vol] 16 mg/dL Normal 4-19 [facility] Comment on above: Performed By: #### L 501.5200, L500.2500, L100.0600 ####[facility] [address] [place], [address] Bedside Glucoseon 11-13-2024 FINGERSTICK GLU 113 mg/dL High 74-106 [facility] Comment on above: Result Comment: MAYRA GONZALEZ OF PATIENT CARE PER NURSING PROTOCOL Performed By: #### L 501.080 ####[facility] [address] [place], [address] FINGERSTICK GLU 144 mg/dL High 74-106 [facility] Comment on above: Result Comment: MAYRA GEMENT OF PATIENT CARE PER NURSING PROTOCOL Performed By: #### L 501.080 ####[facility] [address] [place], [address] HH, Hemoglobin AND Hematocri ton 11-13-2024 Hematocrit (Bld) [Volume fraction] 40.6 % Normal 40-54 [facility] Comment on above: Performed By: #### L 501.5200, L500.2500, L100.0600 ####[facility] [address] [place], [address] Hemoglobin (Bld) [Mass/Vol] 14.0 g/dL Normal 13.0-16.5 [facility] Comment on above: Performed By: #### L 501.5200, L500.2500, L100.0600 ####[facility] [address] [place], [address] Magnesiumon 11-13-2024 Magnesium [Mass/Vol] 2.1 mg/dL Normal 1.5-2.2 [facility] Comment on above: Performed By: #### L 501.5200, L500.2500, L100.0600 ####[facility] [address] [place], [address] Bedside Glucoseon 11-12-2024 FINGERSTICK GLU 131 mg/dL High 74-106 [facility] Comment on above: Result Comment: MAYRA GEMENT OF PATIENT CARE PER NURSING PROTOCOL Performed By: #### L 501.080 ####[facility] [address] [place], [address] FINGERSTICK GLU 117 mg/dL High 74-106 [facility] Comment on above: Result Comment: MAYRA GEMENT OF PATIENT CARE PER NURSING PROTOCOL Performed By: #### L 501.080 ####[facility] [address] [place], [address] Bedside Glucoseon 11-11-2024 FINGERSTICK GLU 120 mg/dL High 74-106 [facility] Comment on above: Result Comment: MAYRA GEMENT OF PATIENT CARE PER NURSING PROTOCOL Performed By: #### L 501.080 ####[facility] [address] [place], [address] FINGERSTICK GLU 128 mg/dL High 74-106 [facility] Comment on above: Result Comment: MAYRA GEMENT OF PATIENT CARE PER NURSING PROTOCOL Performed By: #### L 501.080 ####[facility] [address] [place], [address] FINGERSTICK GLU 117 mg/dL High -106 [facility] Comment on above: Result Comment: MAYRA GEMENT OF PATIENT CARE PER NURSING PROTOCOL Performed By: #### L 501.080 ####[facility] [address] [place], [address] Bedside Glucoseon 11-10-2024 FINGERSTICK GLU 133 mg/dL High -106 [facility] Comment on above: Result Comment: MAYRA GEMENT OF PATIENT CARE PER NURSING PROTOCOL Performed By: #### L 501.080 ####[facility] [address] [place], [address] FINGERSTICK GLU 109 mg/dL High -106 [facility] Comment on above: Result Comment: MAYRA GEMENT OF PATIENT CARE PER NURSING PROTOCOL Performed By: #### L 501.080 ####[facility] [address] [place], [address] FINGERSTICK GLU 127 mg/dL High -106 [facility] Comment on above: Result Comment: MAYRA GEMENT OF PATIENT CARE PER NURSING PROTOCOL Performed By: #### L 501.080 ####[facility] [address] [place], [address] Bedside Glucoseon 11-09-2024 FINGERSTICK GLU 122 mg/dL High 74-106 [facility] Comment on above: Result Comment: MAYRA GEMENT OF PATIENT CARE PER NURSING PROTOCOL Performed By: #### L 501.080 ####[facility] [address] [place], [address] FINGERSTICK GLU 107 mg/dL High 74-106 [facility] Comment on above: Result Comment: MAYRA GEMENT OF PATIENT CARE PER NURSING PROTOCOL Performed By: #### L 501.080 ####[facility] [address] [place], [address] FINGERSTICK GLU 129 mg/dL High -106 [facility] Comment on above: Result Comment: MAYRA GEMENT OF PATIENT CARE PER NURSING PROTOCOL Performed By: #### L 501.080 ####[facility] [address] [place], [address] Bedside Glucoseon 11-08-2024 FINGERSTICK GLU 110 mg/dL High -106 [facility] Comment on above: Result Comment: MAYRA GEMENT OF PATIENT CARE PER NURSING PROTOCOL Performed By: #### L 501.080 ####[facility] [address] [place], [address] FINGERSTICK GLU 97 mg/dL Normal 74-106 [facility] Comment on above: Result Comment: MAYRA GEMENT OF PATIENT CARE PER NURSING PROTOCOL Performed By: #### L 501.080 ####[facility] [address] [place], [address] FINGERSTICK GLU 125 mg/dL High -106 [facility] Comment on above: Result Comment: MAYRA GEMENT OF PATIENT CARE PER NURSING PROTOCOL Performed By: #### L 501.080 ####[facility] [address] [place], [address] Bedside Glucoseon 11-07-2024 FINGERSTICK GLU 138 mg/dL High 74-106 [facility] Comment on above: Result Comment: MAYRA GEMENT OF PATIENT CARE PER NURSING PROTOCOL Performed By: #### L 501.080 ####[facility] [address] [place], [address] FINGERSTICK GLU 128 mg/dL High 74-106 [facility] Comment on above: Result Comment: MAYRA GEMENT OF PATIENT CARE PER NURSING PROTOCOL Performed By: #### L 501.080 ####[facility] [address] [place], [address] FINGERSTICK GLU 132 mg/dL High -106 [facility] Comment on above: Result Comment: MAYRA GEMENT OF PATIENT CARE PER NURSING PROTOCOL Performed By: #### L 501.080 ####[facility] [address] [place], [address] Bedside Glucoseon 11-06-2024 FINGERSTICK GLU 125 mg/dL High -106 [facility] Comment on above: Result Comment: MAYRA GEMENT OF PATIENT CARE PER NURSING PROTOCOL Performed By: #### L 501.080 ####[facility] [address] [place], [address] FINGERSTICK GLU 99 mg/dL Normal 74-106 [facility] Comment on above: Result Comment: MAYRA GEMENT OF PATIENT CARE PER NURSING PROTOCOL Performed By: #### L 501.080 ####[facility] [address] [place], [address] FINGERSTICK GLU 117 mg/dL High 74-106 [facility] Comment on above: Result Comment: MAYRA GEMENT OF PATIENT CARE PER NURSING PROTOCOL Performed By: #### L 501.080 ####[facility] [address] [place], [address] L499.5025on 11-06-2024 Potassium [Moles/Vol] 3.8 mmol/L Normal 3.3-5.1 [facility] Comment on above: Performed By: #### L 499.5025 ####[facility] [address] [place], [address] Bedside Glucoseon 11-05-2024 FINGERSTICK GLU 160 mg/dL High 74-106 [facility] Comment on above: Result Comment: MAYRA GEMENT OF PATIENT CARE PER NURSING PROTOCOL Performed By: #### L 501.080 ####[facility] [address] [place], [address] FINGERSTICK GLU 144 mg/dL High [facility]106 [facility] Comment on above: Result Comment: MAYRA GEMENT OF PATIENT CARE PER NURSING PROTOCOL Performed By: #### L 501.080 ####[facility] [address] [place], [address] FINGERSTICK GLU 122 mg/dL High -106 [facility] Comment on above: Result Comment: MAYRA GEMENT OF PATIENT CARE PER NURSING PROTOCOL Performed By: #### L 501.080 ####[facility] [address] [place], [address] Bedside Glucoseon 11-04-2024 FINGERSTICK GLU 122 mg/dL High -106 [facility] Comment on above: Result Comment: MAYRA GEMENT OF PATIENT CARE PER NURSING PROTOCOL Performed By: #### L 501.080 ####[facility] [address] [place], [address] FINGERSTICK GLU 107 mg/dL High -106 [facility] Comment on above: Result Comment: MAYRA GEMENT OF PATIENT CARE PER NURSING PROTOCOL Performed By: #### L 501.080 ####[facility] [address] [place], [address] FINGERSTICK GLU 175 mg/dL High 74-106 [facility] Comment on above: Result Comment: MAYRA GONZALEZ OF PATIENT CARE PER NURSING PROTOCOL Performed By: #### L 501.080 ####[facility] [address] [place], [address] Basic Metabolic Profile (BMP )on 11-03-2024 BUN/CRE 17.7 RATIO Normal 10-20 [facility] Comment on above: Performed By: #### L 100.0500, L500.2500, L501.5200 ####[facility] [address] [place], [address] CA,Total 9.1 mg/dL Normal 8.5-10.1 [facility] Comment on above: Performed By: #### L 100.0500, L500.2500, L501.5200 ####[facility] [address] [place], [address] Chloride [Moles/Vol] 105 mmol/L Normal 98-107 [facility] Comment on above: Performed By: #### L 100.0500, L500.2500, L501.5200 ####[facility] [address] [place], [address] CO2 [Moles/Vol] 29.0 mmol/L Normal 21.0-32.0 [facility] Comment on above: Performed By: #### L 100.0500, L500.2500, L501.5200 ####[facility] [address] [place], [address] Creatinine [Mass/Vol] 0.74 mg/dL Normal 0.70-1.30 [facility] Comment on above: Result Comment: The validity of the calculated GFR GFRAA in patients over70 years has not been determined. Clinical correlation isessential. Performed By: #### L 100.0500, L500.2500, L501.5200 ####[facility] [address] [place], [address] ECRCL 107.89 ml/min Normal [facility] Comment on above: Performed By: #### L 100.0500, L500.2500, L501.5200 ####[facility] [address] [place], [address] EST GFR - AA 138 mL/min Normal >60 [facility] Comment on above: Result Comment: Afri can Wallis[place] GFR Calc Performed By: #### L 100.0500, L500.2500, L501.5200 ####[facility] [address] [place], [address] GAP 5 Normal 5-15 [facility] Comment on above: Performed By: #### L 100.0500, L500.2500, L501.5200 ####[facility] [address] [place], [address] GFR/1.73 sq M.predicted among non-blacks MDRD (S/P/Bld) [Vol rate/Area] 114 mL/min/{1.73_m2} Normal >60 [facility] Comment on above: Result Comment: Non- GFR Calc Performed By: #### L 100.0500, L500.2500, L501.5200 ####[facility] [address] [place], [address] Glucose [Mass/Vol] 129 mg/dL High 74-106 [facility] Comment on above: Result Comment: Fast ing Glucose result greater than or equal to 126 mg/dLsuggests DIABETES MELLITUS per A.D.A. criteria. Performed By: #### L 100.0500, L500.2500, L501.5200 ####[facility] [address] [place], [address] Potassium [Moles/Vol] 3.5 mmol/L Normal 3.5-5.1 [facility] Comment on above: Performed By: #### L 100.0500, L500.2500, L501.5200 ####[facility] [address] [place], [address] Sodium [Moles/Vol] 139 mmol/L Normal 136-145 [facility] Comment on above: Performed By: #### L 100.0500, L500.2500, L501.5200 ####[facility] [address] [place], [address] Urea nitrogen [Mass/Vol] 13 mg/dL Normal 7-18 [facility] Comment on above: Performed By: #### L 100.0500, L500.2500, L501.5200 ####[facility] [address] [place], [address] Bedside Glucoseon 11-03-2024 FINGERSTICK GLU 136 mg/dL High 74-106 [facility] Comment on above: Result Comment: MAYRA GEMENT OF PATIENT CARE PER NURSING PROTOCOL Performed By: #### L 501.080 ####[facility] [address] [place], [address] FINGERSTICK GLU 105 mg/dL Normal 74-106 [facility] Comment on above: Result Comment: MAYRA GEMENT OF PATIENT CARE PER NURSING PROTOCOL Performed By: #### L 501.080 ####[facility] [address] [place], [address] FINGERSTICK GLU 140 mg/dL High 74-106 [facility] Comment on above: Result Comment: MAYRA GEMENT OF PATIENT CARE PER NURSING PROTOCOL Performed By: #### L 501.080 ####[facility] [address] [place], [address] CBC-Complete Blood Cnt No Di ffon 11-03-2024 Erythrocyte distribution width (RBC) [Ratio] 12.5 % Normal 11.6-14.6 [facility] Comment on above: Performed By: #### L 100.0500, L500.2500, L501.5200 ####[facility] [address] [place], [address] Hematocrit (Bld) [Volume fraction] 42.4 % Normal 40-54 [facility] Comment on above: Performed By: #### L 100.0500, L500.2500, L501.5200 ####[facility] [address] [place], [address] Hemoglobin (Bld) [Mass/Vol] 14.1 g/dL Normal 13.0-16.5 [facility] Comment on above: Performed By: #### L 100.0500, L500.2500, L501.5200 ####[facility] [address] [place], [address] MCH (RBC) [Entitic mass] 30.7 pg Normal 27.0-32.0 [facility] Comment on above: Performed By: #### L 100.0500, L500.2500, L501.5200 ####[facility] [address] [place], [address] MCHC (RBC) [Mass/Vol] 33.3 g/dL Normal 32-36 [facility] Comment on above: Performed By: #### L 100.0500, L500.2500, L501.5200 ####[facility] [address] [place], [address] MCV (RBC) [Entitic vol] 92.4 fL Normal 80-94 [facility] Comment on above: Performed By: #### L 100.0500, L500.2500, L501.5200 ####[facility] [address] [place], [address] Platelet mean volume (Bld) [Entitic vol] 10.2 fL Normal 6.2-12.0 [facility] Comment on above: Performed By: #### L 100.0500, L500.2500, L501.5200 ####[facility] [address] [place], [address] Platelets (Bld) [#/Vol] 345 10*3/uL Normal 150-450 [facility] Comment on above: Performed By: #### L 100.0500, L500.2500, L501.5200 ####[facility] [address] [place], [address] RBC (Bld) [#/Vol] 4.59 10*6/uL Low 4.6-6.2 [facility] Comment on above: Performed By: #### L 100.0500, L500.2500, L501.5200 ####[facility] [address] [place], [address] RDW SD 42.3 fl Normal 35.1-43.9 [facility] Comment on above: Performed By: #### L 100.0500, L500.2500, L501.5200 ####[facility] [address] [place], [address] WBC (Bld) [#/Vol] 8.5 10*3/uL Normal 4.4-11.0 [facility] Comment on above: Performed By: #### L 100.0500, L500.2500, L501.5200 ####[facility] [address] [place], [address] Magnesiumon 11-03-2024 Magnesium [Mass/Vol] 2.2 mg/dL Normal 1.6-2.6 [facility] Comment on above: Performed By: #### L 100.0500, L500.2500, L501.5200 ####[facility] [address] [place], [address] Bedside Glucoseon 11-02-2024 FINGERSTICK GLU 125 mg/dL High 74-106 [facility] Comment on above: Result Comment: MAYRA GEMENT OF PATIENT CARE PER NURSING PROTOCOL Performed By: #### L 501.080 ####[facility] [address] [place], [address] FINGERSTICK GLU 137 mg/dL High -106 [facility] Comment on above: Result Comment: MAYRA GEMENT OF PATIENT CARE PER NURSING PROTOCOL Performed By: #### L 501.080 ####[facility] [address] [place], [address] FINGERSTICK GLU 147 mg/dL High -106 [facility] Comment on above: Result Comment: MAYRA GEMENT OF PATIENT CARE PER NURSING PROTOCOL Performed By: #### L 501.080 ####[facility] [address] [place], [address] Bedside Glucoseon 11-01-2024 FINGERSTICK GLU 117 mg/dL High -106 [facility] Comment on above: Result Comment: MAYRA GEMENT OF PATIENT CARE PER NURSING PROTOCOL Performed By: #### L 501.080 ####[facility] [address] [place], [address] FINGERSTICK GLU 158 mg/dL High -106 [facility] Comment on above: Result Comment: MAYRA GEMENT OF PATIENT CARE PER NURSING PROTOCOL Performed By: #### L 501.080 ####[facility] [address] [place], [address] FINGERSTICK GLU 143 mg/dL High -106 [facility] Comment on above: Result Comment: MAYRA GEMENT OF PATIENT CARE PER NURSING PROTOCOL Performed By: #### L 501.080 ####[facility] [address] [place], [address] Bedside Glucoseon 10-31-2024 FINGERSTICK GLU 116 mg/dL High 74-106 [facility] Comment on above: Result Comment: MAYRA GEMENT OF PATIENT CARE PER NURSING PROTOCOL Performed By: #### L 501.080 ####[facility] [address] [place], [address] FINGERSTICK GLU 99 mg/dL Normal 74-106 [facility] Comment on above: Result Comment: MAYRA GEMENT OF PATIENT CARE PER NURSING PROTOCOL Performed By: #### L 501.080 ####[facility] [address] [place], [address] FINGERSTICK GLU 134 mg/dL High 74-106 [facility] Comment on above: Result Comment: MAYRA GEMENT OF PATIENT CARE PER NURSING PROTOCOL Performed By: #### L 501.080 ####[facility] [address] [place], [address] Bedside Glucoseon 10-30-2024 FINGERSTICK GLU 121 mg/dL High 74-106 [facility] Comment on above: Result Comment: MAYRA GEMENT OF PATIENT CARE PER NURSING PROTOCOL Performed By: #### L 501.080 ####[facility] [address] [place], [address] FINGERSTICK GLU 88 mg/dL Normal 74-106 [facility] Comment on above: Result Comment: MAYRA GEMENT OF PATIENT CARE PER NURSING PROTOCOL Performed By: #### L 501.080 ####[facility] [address] [place], [address] FINGERSTICK GLU 106 mg/dL Normal 74-106 [facility] Comment on above: Result Comment: MAYRA GEMENT OF PATIENT CARE PER NURSING PROTOCOL Performed By: #### L 501.080 ####[facility] [address] [place], [address] FINGERSTICK GLU 155 mg/dL High 74-106 [facility] Comment on above: Result Comment: MAYRA GEMENT OF PATIENT CARE PER NURSING PROTOCOL Performed By: #### L 501.080 ####[facility] [address] [place], [address] Bedside Glucoseon 10-29-2024 FINGERSTICK GLU 130 mg/dL High 74-106 [facility] Comment on above: Result Comment: MAYRA GEMENT OF PATIENT CARE PER NURSING PROTOCOL Performed By: #### L 501.080 ####[facility] [address] [place], [address] FINGERSTICK GLU 144 mg/dL High 74-106 [facility] Comment on above: Result Comment: MAYRA GEMENT OF PATIENT CARE PER NURSING PROTOCOL Performed By: #### L 501.080 ####[facility] [address] [place], [address] Bedside Glucoseon 10-28-2024 FINGERSTICK GLU 103 mg/dL Normal 74-106 [facility] Comment on above: Result Comment: MAYRA GEMENT OF PATIENT CARE PER NURSING PROTOCOL Performed By: #### L 501.080 ####[facility] [address] [place], [address] FINGERSTICK GLU 116 mg/dL High 74-106 [facility] Comment on above: Result Comment: MAYRA GEMENT OF PATIENT CARE PER NURSING PROTOCOL Performed By: #### L 501.080 ####[facility] [address] [place], [address] FINGERSTICK GLU 137 mg/dL High 74-106 [facility] Comment on above: Result Comment: MAYRA GEMENT OF PATIENT CARE PER NURSING PROTOCOL Performed By: #### L 501.080 ####[facility] [address] [place], [address] FINGERSTICK GLU 146 mg/dL High 74-106 [facility] Comment on above: Result Comment: MAYRA GEMENT OF PATIENT CARE PER NURSING PROTOCOL Performed By: #### L 501.080 ####[facility] [address] [place], [address] Bedside Glucoseon 10-27-2024 FINGERSTICK GLU 101 mg/dL Normal 74-106 [facility] Comment on above: Result Comment: MAYRA GEMENT OF PATIENT CARE PER NURSING PROTOCOL Performed By: #### L 501.080 ####[facility] [address] [place], [address] FINGERSTICK GLU 122 mg/dL High 74-106 [facility] Comment on above: Result Comment: MAYRA GEMENT OF PATIENT CARE PER NURSING PROTOCOL Performed By: #### L 501.080 ####[facility] [address] [place], [address] FINGERSTICK GLU 81 mg/dL Normal 74-106 [facility] Comment on above: Result Comment: MAYRA GEMENT OF PATIENT CARE PER NURSING PROTOCOL Performed By: #### L 501.080 ####[facility] [address] [place], [address] FINGERSTICK GLU 178 mg/dL High 74-106 [facility] Comment on above: Result Comment: MAYRA GEMENT OF PATIENT CARE PER NURSING PROTOCOL Performed By: #### L 501.080 ####[facility] [address] [place], [address] Bedside Glucoseon 10-26-2024 FINGERSTICK GLU 123 mg/dL High 74-106 [facility] Comment on above: Result Comment: MAYRA GEMENT OF PATIENT CARE PER NURSING PROTOCOL Performed By: #### L 501.080 ####[facility] [address] [place], [address] FINGERSTICK GLU 120 mg/dL High 74-106 [facility] Comment on above: Result Comment: MAYRA GEMENT OF PATIENT CARE PER NURSING PROTOCOL Performed By: #### L 501.080 ####[facility] [address] [place], [address] FINGERSTICK GLU 114 mg/dL High 74-106 [facility] Comment on above: Result Comment: MAYRA GEMENT OF PATIENT CARE PER NURSING PROTOCOL Performed By: #### L 501.080 ####[facility] [address] [place], [address] FINGERSTICK GLU 59 mg/dL Low 74-106 [facility] Comment on above: Result Comment: MAYRA GEMENT OF PATIENT CARE PER NURSING PROTOCOL Performed By: #### L 501.080 ####[facility] [address] [place], [address] FINGERSTICK GLU 164 mg/dL High 74-106 [facility] Comment on above: Result Comment: MAYRA GEMENT OF PATIENT CARE PER NURSING PROTOCOL Performed By: #### L 501.080 ####[facility] [address] [place], [address] Bedside Glucoseon 10-25-2024 FINGERSTICK GLU 93 mg/dL Normal 74-106 [facility] Comment on above: Result Comment: MAYRA GEMENT OF PATIENT CARE PER NURSING PROTOCOL Performed By: #### L 501.080 ####[facility] [address] [place], [address] FINGERSTICK GLU 131 mg/dL High 74-106 [facility] Comment on above: Result Comment: MAYRA GEMENT OF PATIENT CARE PER NURSING PROTOCOL Performed By: #### L 501.080 ####[facility] [address] [place], [address] FINGERSTICK GLU 114 mg/dL High 74-106 [facility] Comment on above: Result Comment: MAYRA GEMENT OF PATIENT CARE PER NURSING PROTOCOL Performed By: #### L 501.080 ####[facility] [address] [place], [address] FINGERSTICK GLU 170 mg/dL High 74-106 [facility] Comment on above: Result Comment: MAYRA GEMENT OF PATIENT CARE PER NURSING PROTOCOL Performed By: #### L 501.080 ####[facility] [address] [place], [address] Bedside Glucoseon 10-24-2024 FINGERSTICK GLU 121 mg/dL High 74-106 [facility] Comment on above: Result Comment: MAYRA GEMENT OF PATIENT CARE PER NURSING PROTOCOL Performed By: #### L 501.080 ####[facility] [address] [place], [address] FINGERSTICK GLU 117 mg/dL High -106 [facility] Comment on above: Result Comment: MAYRA GEMENT OF PATIENT CARE PER NURSING PROTOCOL Performed By: #### L 501.080 ####[facility] [address] [place], [address] FINGERSTICK GLU 101 mg/dL Normal 74-106 [facility] Comment on above: Result Comment: MAYRA GEMENT OF PATIENT CARE PER NURSING PROTOCOL Performed By: #### L 501.080 ####[facility] [address] [place], [address] FINGERSTICK GLU 172 mg/dL High 74-106 [facility] Comment on above: Result Comment: MAYRA GEMENT OF PATIENT CARE PER NURSING PROTOCOL Performed By: #### L 501.080 ####[facility] [address] [place], [address] FINGERSTICK GLU 129 mg/dL High -106 [facility] Comment on above: Result Comment: MAYRA GEMENT OF PATIENT CARE PER NURSING PROTOCOL Performed By: #### L 501.080 ####[facility] [address] [place], [address] Bedside Glucoseon 10-23-2024 FINGERSTICK GLU 109 mg/dL High 74-106 [facility] Comment on above: Result Comment: MAYRA GEMENT OF PATIENT CARE PER NURSING PROTOCOL Performed By: #### L 501.080 ####[facility] [address] [place], [address] FINGERSTICK GLU 131 mg/dL High 74-106 [facility] Comment on above: Result Comment: MAYRA GEMENT OF PATIENT CARE PER NURSING PROTOCOL Performed By: #### L 501.080 ####[facility] [address] [place], [address] FINGERSTICK GLU 89 mg/dL Normal 74-106 [facility] Comment on above: Result Comment: MAYRA GEMENT OF PATIENT CARE PER NURSING PROTOCOL Performed By: #### L 501.080 ####[facility] [address] [place], [address] FINGERSTICK GLU 205 mg/dL High 74-106 [facility] Comment on above: Result Comment: MAYRA GEMENT OF PATIENT CARE PER NURSING PROTOCOL Performed By: #### L 501.080 ####[facility] [address] [place], [address] FINGERSTICK GLU 159 mg/dL High 74-106 [facility] Comment on above: Result Comment: MAYRA GEMENT OF PATIENT CARE PER NURSING PROTOCOL Performed By: #### L 501.080 ####[facility] [address] [place], [address] Basic Metabolic Profile (BMP )on 10-22-2024 BUN/CRE 17.0 RATIO Normal 10-20 [facility] Comment on above: Performed By: #### L 100.0100, L500.2500 ####[facility] [address] [place], [address] CA,Total 9.5 mg/dL Normal 8.5-10.1 [facility] Comment on above: Performed By: #### L 100.0100, L500.2500 ####[facility] [address] [place], [address] Chloride [Moles/Vol] 103 mmol/L Normal 98-107 [facility] Comment on above: Performed By: #### L 100.0100, L500.2500 ####[facility] [address] [place], [address] CO2 [Moles/Vol] 23.0 mmol/L Normal 21.0-32.0 [facility] Comment on above: Performed By: #### L 100.0100, L500.2500 ####[facility] [address] [place], [address] Creatinine [Mass/Vol] 0.88 mg/dL Normal 0.70-1.30 [facility] Comment on above: Result Comment: The validity of the calculated GFR GFRAA in patients over70 years has not been determined. Clinical correlation isessential. Performed By: #### L 100.0100, L500.2500 ####[facility] [address] [place], [address] ECRCL 91.02 ml/min Normal [facility] Comment on above: Performed By: #### L 100.0100, L500.2500 ####[facility] [address] [place], [address] EST GFR - AA 111 mL/min Normal >60 [facility] Comment on above: Result Comment: Afri can Wallisian GFR Calc Performed By: #### L 100.0100, L500.2500 ####[facility] [address] [place], [address] GAP 9 Normal 5-15 [facility] Comment on above: Performed By: #### L 100.0100, L500.2500 ####[facility] [address] [place], [address] GFR/1.73 sq M.predicted among non-blacks MDRD (S/P/Bld) [Vol rate/Area] 92 mL/min/{1.73_m2} Normal >60 [facility] Comment on above: Result Comment: Non- GFR Calc Performed By: #### L 100.0100, L500.2500 ####[facility] [address] [place], [address] Glucose [Mass/Vol] 121 mg/dL High 74-106 [facility] Comment on above: Result Comment: Fast ing Glucose result from 100 to 125 mg/dLsuggests IMPAIRED HOMEOSTASIS per A.D.A. criteria. Performed By: #### L 100.0100, L500.2500 ####[facility] [address] [place], [address] Potassium [Moles/Vol] 3.6 mmol/L Normal 3.5-5.1 [facility] Comment on above: Performed By: #### L 100.0100, L500.2500 ####[facility] [address] [place], [address] Sodium [Moles/Vol] 136 mmol/L Normal 136-145 [facility] Comment on above: Performed By: #### L 100.0100, L500.2500 ####[facility] [address] [place], [address] Urea nitrogen [Mass/Vol] 15 mg/dL Normal 7-18 [facility] Comment on above: Performed By: #### L 100.0100, L500.2500 ####[facility] [address] [place], [address] Bedside Glucoseon 10-22-2024 FINGERSTICK GLU 114 mg/dL High 74-106 [facility] Comment on above: Result Comment: MAYRA GEMENT OF PATIENT CARE PER NURSING PROTOCOL Performed By: #### L 501.080 ####[facility] [address] [place], [address] FINGERSTICK GLU 144 mg/dL High 74-106 [facility] Comment on above: Result Comment: MAYRA GEMENT OF PATIENT CARE PER NURSING PROTOCOL Performed By: #### L 501.080 ####[facility] [address] [place], [address] FINGERSTICK GLU 113 mg/dL High 74-106 [facility] Comment on above: Result Comment: MAYRA GEMENT OF PATIENT CARE PER NURSING PROTOCOL Performed By: #### L 501.080 ####[facility] [address] [place], [address] FINGERSTICK GLU 209 mg/dL High 74-106 [facility] Comment on above: Result Comment: MAYRA GEMENT OF PATIENT CARE PER NURSING PROTOCOL Performed By: #### L 501.080 ####[facility] [address] [place], [address] CBC W/Diff, Automatedon 02-09 11-2024 Absolute Lymph 2.34 X10 3/uL Normal 0.83-4.51 [facility] Comment on above: Performed By: #### L 100.0100, L500.2500 ####[facility] [address] [place], [address] Absolute Neut 7.0 X10 3/uL Normal 2.0-7.7 [facility] Comment on above: Performed By: #### L 100.0100, L500.2500 ####[facility] [address] [place], [address] Basophils/100 WBC (Bld) 0.6 % Normal 0-1 [facility] Comment on above: Performed By: #### L 100.0100, L500.2500 ####[facility] [address] [place], [address] Eosinophils/100 WBC (Bld) 1.0 % Normal 0-5 [facility] Comment on above: Performed By: #### L 100.0100, L500.2500 ####[facility] [address] [place], [address] Erythrocyte distribution width (RBC) [Ratio] 12.2 % Normal 11.6-14.6 [facility] Comment on above: Performed By: #### L 100.0100, L500.2500 ####[facility] [address] [place], [address] Hematocrit (Bld) [Volume fraction] 44.4 % Normal 40-54 [facility] Comment on above: Performed By: #### L 100.0100, L500.2500 ####[facility] [address] [place], [address] Hemoglobin (Bld) [Mass/Vol] 15.1 g/dL Normal 13.0-16.5 [facility] Comment on above: Performed By: #### L 100.0100, L500.2500 ####[facility] [address] [place], [address] IG% 0.700 Normal 0.0-0.9 [facility] Comment on above: Result Comment: IG% - Immature Granulocytes (promyelocytes, myelocytes andmetamyelocytes) > 1% indicates that a LEFT SHIFT is Present. Performed By: #### L 100.0100, L500.2500 ####[facility] [address] [place], [address] Lymphocytes/100 WBC (Bld) 22.3 % Normal 19-41 [facility] Comment on above: Performed By: #### L 100.0100, L500.2500 ####[facility] [address] [place], [address] MCH (RBC) [Entitic mass] 31.0 pg Normal 27.0-32.0 [facility] Comment on above: Performed By: #### L 100.0100, L500.2500 ####[facility] [address] [place], [address] MCHC (RBC) [Mass/Vol] 34.0 g/dL Normal 32-36 [facility] Comment on above: Performed By: #### L 100.0100, L500.2500 ####[facility] [address] [place], [address] MCV (RBC) [Entitic vol] 91.2 fL Normal 80-94 [facility] Comment on above: Performed By: #### L 100.0100, L500.2500 ####[facility] [address] [place], [address] Monocytes/100 WBC (Bld) 9.1 % Normal 0-10 [facility] Comment on above: Performed By: #### L 100.0100, L500.2500 ####[facility] [address] [place], [address] Neutrophils/100 WBC (Bld) 66.3 % Normal 47-70 [facility] Comment on above: Performed By: #### L 100.0100, L500.2500 ####[facility] [address] [place], [address] Nucleated RBC (Bld) [#/Vol] 0 10*3/uL Normal 0-5 [facility] Comment on above: Performed By: #### L 100.0100, L500.2500 ####[facility] [address] [place], [address] Platelet mean volume (Bld) [Entitic vol] 10.3 fL Normal 6.2-12.0 [facility] Comment on above: Performed By: #### L 100.0100, L500.2500 ####[facility] [address] [place], [address] Platelets (Bld) [#/Vol] 319 10*3/uL Normal 150-450 [facility] Comment on above: Performed By: #### L 100.0100, L500.2500 ####[facility] [address] [place], [address] RBC (Bld) [#/Vol] 4.87 10*6/uL Normal 4.6-6.2 [facility] Comment on above: Performed By: #### L 100.0100, L500.2500 ####[facility] [address] [place], [address] RDW SD 40.7 fl Normal 35.1-43.9 [facility] Comment on above: Performed By: #### L 100.0100, L500.2500 ####[facility] [address] [place], [address] WBC (Bld) [#/Vol] 10.5 10*3/uL Normal 4.4-11.0 [facility] Comment on above: Performed By: #### L 100.0100, L500.2500 ####[facility] [address] [place], [address] Urinalysis, Completeon 10-22 Mucus Ql (Urine sed) 1+ /hpf Normal [facility] Comment on above: Order Comment: VALERIA TER SPECIMEN Performed By: #### L 400.0001 ####[facility] [address] [place], [address] RBC 0-5 SEEN Normal 0-5 [facility] Comment on above: Order Comment: VALERIA TER SPECIMEN Performed By: #### L 400.0001 ####[facility] [address] [place], [address] WBC 0-5 SEEN Normal 0-5 [facility] Comment on above: Order Comment: VALERIA TER SPECIMEN Performed By: #### L 400.0001 ####[facility] [address] [place], [address] BACTERIA 0 SEEN Normal None Seen [facility] Comment on above: Order Comment: VALERIA TER SPECIMEN Performed By: #### L 400.0001 ####[facility] [address] [place], [address] EPI,SQUAMOUS 0 SEEN Normal 0-5 [facility] Comment on above: Order Comment: VALERIA TER SPECIMEN Performed By: #### L 400.0001 ####[facility] [address] [place], [address] Bedside Glucoseon 10-21-2024 FINGERSTICK GLU 101 mg/dL Normal 74-106 [facility] Comment on above: Result Comment: MAYRA GEMENT OF PATIENT CARE PER NURSING PROTOCOL Performed By: #### L 501.080 ####[facility] [address] [place], [address] FINGERSTICK GLU 140 mg/dL High 74-106 [facility] Comment on above: Result Comment: MAYRA GEMENT OF PATIENT CARE PER NURSING PROTOCOL Performed By: #### L 501.080 ####[facility] [address] [place], [address] FINGERSTICK GLU 110 mg/dL High 74-106 [facility] Comment on above: Result Comment: MAYRA GEMENT OF PATIENT CARE PER NURSING PROTOCOL Performed By: #### L 501.080 ####[facility] [address] [place], [address] FINGERSTICK GLU 214 mg/dL High 74-106 [facility] Comment on above: Result Comment: MAYRA GEMENT OF PATIENT CARE PER NURSING PROTOCOL Performed By: #### L 501.080 ####[facility] [address] [place], [address] Bedside Glucoseon 10-20-2024 FINGERSTICK GLU 110 mg/dL High 74-106 [facility] Comment on above: Result Comment: MAYRA GEMENT OF PATIENT CARE PER NURSING PROTOCOL Performed By: #### L 501.080 ####[facility] [address] [facility] [address] FINGERSTICK GLU 142 mg/dL High 74-106 [facility] Comment on above: Result Comment: MAYRA GEMENT OF PATIENT CARE PER NURSING PROTOCOL Performed By: #### L 501.080 ####[facility] [address] [facility] [address] FINGERSTICK GLU 158 mg/dL High 74-106 [facility] Comment on above: Result Comment: MAYRA GEMENT OF PATIENT CARE PER NURSING PROTOCOL Performed By: #### L 501.080 ####[facility] [address] [place], [address] FINGERSTICK GLU 188 mg/dL High -106 [facility] Comment on above: Result Comment: MAYRA GEMENT OF PATIENT CARE PER NURSING PROTOCOL Performed By: #### L 501.080 ####[facility] [address] [place], [address] Modified Barium Swallow Stud yon 10-20-2024 Modified Barium Swallow Study Normal [facility] Bedside Glucoseon 10-19-2024 FINGERSTICK GLU 108 mg/dL High 74-106 [facility] Comment on above: Result Comment: MAYRA GEMENT OF PATIENT CARE PER NURSING PROTOCOL Performed By: #### L 501.080 ####[facility] [address] [place], [address] FINGERSTICK GLU 178 mg/dL High 74-106 [facility] Comment on above: Result Comment: MAYRA GEMENT OF PATIENT CARE PER NURSING PROTOCOL Performed By: #### L 501.080 ####[facility] [address] [place], [address] FINGERSTICK GLU 148 mg/dL High -106 [facility] Comment on above: Result Comment: MAYRA GEMENT OF PATIENT CARE PER NURSING PROTOCOL Performed By: #### L 501.080 ####[facility] [address] [place], [address] FINGERSTICK GLU 225 mg/dL High -106 [facility] Comment on above: Result Comment: MAYRA GEMENT OF PATIENT CARE PER NURSING PROTOCOL Performed By: #### L 501.080 ####[facility] [address] [place], [address] Bedside Glucoseon 10-18-2024 FINGERSTICK GLU 192 mg/dL High -106 [facility] Comment on above: Result Comment: MAYRA GEMENT OF PATIENT CARE PER NURSING PROTOCOL Performed By: #### L 501.080 ####[facility] [address] [place], [address] FINGERSTICK GLU 188 mg/dL [place] [address]-106 [facility] Comment on above: Result Comment: MAYRA GEMENT OF PATIENT CARE PER NURSING PROTOCOL Performed By: #### L 501.080 ####[facility] [address] [place], [address] FINGERSTICK GLU 214 mg/dL High -106 [facility] Comment on above: Result Comment: MAYRA GEMENT OF PATIENT CARE PER NURSING PROTOCOL Performed By: #### L 501.080 ####[facility] [address] [place], [address] FINGERSTICK GLU 241 mg/dL High -106 [facility] Comment on above: Result Comment: MAYRA GEMENT OF PATIENT CARE PER NURSING PROTOCOL Performed By: #### L 501.080 ####[facility] [address] [place], [address] FINGERSTICK GLU 220 mg/dL High 74-106 [facility] Comment on above: Result Comment: MAYRA GEMENT OF PATIENT CARE PER NURSING PROTOCOL Performed By: #### L 501.080 ####[facility] [address] [place], [address] Bedside Glucoseon 10-17-2024 FINGERSTICK GLU 245 mg/dL High -106 [facility] Comment on above: Result Comment: MAYRA GEMENT OF PATIENT CARE PER NURSING PROTOCOL Performed By: #### L 501.080 ####[facility] [address] [place], [address] FINGERSTICK GLU 228 mg/dL High -106 [facility] Comment on above: Result Comment: MAYRA GEMENT OF PATIENT CARE PER NURSING PROTOCOL Performed By: #### L 501.080 ####[facility] [address] [place], [address] FINGERSTICK GLU 281 mg/dL High -106 [facility] Comment on above: Result Comment: MAYRA GEMENT OF PATIENT CARE PER NURSING PROTOCOL Performed By: #### L 501.080 ####[facility] [address] [place], [address] CBC W/Diff, Automatedon 02-0 Absolute Lymph 3.42 X10 3/uL Normal 0.83-4.51 [facility] Comment on above: Performed By: #### L 500.4050, L501.2300, L501.5200, L100.0100 ####[facility] [address] [place], [address] Absolute Neut 8.8 X10 3/uL High 2.0-7.7 [facility] Comment on above: Performed By: #### L 500.4050, L501.2300, L501.5200, L100.0100 ####[facility] [address] [place], [address] Basophils/100 WBC (Bld) 0.5 % Normal 0-1 [facility] Comment on above: Performed By: #### L 500.4050, L501.2300, L501.5200, L100.0100 ####[facility] [address] [place], [address] Eosinophils/100 WBC (Bld) 1.5 % Normal 0-5 [facility] Comment on above: Performed By: #### L 500.4050, L501.2300, L501.5200, L100.0100 ####[facility] [address] [place], [address] Erythrocyte distribution width (RBC) [Ratio] 12.3 % Normal 11.6-14.6 [facility] Comment on above: Performed By: #### L 500.4050, L501.2300, L501.5200, L100.0100 ####[facility] [address] [place], [address] Hematocrit (Bld) [Volume fraction] 46.7 % Normal 40-54 [facility] Comment on above: Performed By: #### L 500.4050, L501.2300, L501.5200, L100.0100 ####[facility] [address] [place], [address] Hemoglobin (Bld) [Mass/Vol] 16.0 g/dL Normal 13.0-16.5 [facility] Comment on above: Performed By: #### L 500.4050, L501.2300, L501.5200, L100.0100 ####[facility] [address] [place], [address] IG% 1.100 High 0.0-0.9 [facility] Comment on above: Result Comment: IG% - Immature Granulocytes (promyelocytes, myelocytes andmetamyelocytes) > 1% indicates that a LEFT SHIFT is Present. Performed By: #### L 500.4050, L501.2300, L501.5200, L100.0100 ####[facility] [address] [place], [address] Lymphocytes/100 WBC (Bld) 25.1 % Normal 19-41 [facility] Comment on above: Performed By: #### L 500.4050, L501.2300, L501.5200, L100.0100 ####[facility] [address] [place], [address] MCH (RBC) [Entitic mass] 30.8 pg Normal 27.0-32.0 [facility] Comment on above: Performed By: #### L 500.4050, L501.2300, L501.5200, L100.0100 ####[facility] [address] [place], [address] MCHC (RBC) [Mass/Vol] 34.3 g/dL Normal 32-36 [facility] Comment on above: Performed By: #### L 500.4050, L501.2300, L501.5200, L100.0100 ####[facility] [address] [place], [address] MCV (RBC) [Entitic vol] 89.8 fL Normal 80-94 [facility] Comment on above: Performed By: #### L 500.4050, L501.2300, L501.5200, L100.0100 ####[facility] [address] [place], [address] Monocytes/100 WBC (Bld) 7.4 % Normal 0-10 [facility] Comment on above: Performed By: #### L 500.4050, L501.2300, L501.5200, L100.0100 ####[facility] [address] [place], [address] Neutrophils/100 WBC (Bld) 64.4 % Normal 47-70 [facility] Comment on above: Performed By: #### L 500.4050, L501.2300, L501.5200, L100.0100 ####[facility] [address] [place], [address] Nucleated RBC (Bld) [#/Vol] 0 10*3/uL Normal 0-5 [facility] Comment on above: Performed By: #### L 500.4050, L501.2300, L501.5200, L100.0100 ####[facility] [address] [place], [address] Platelet mean volume (Bld) [Entitic vol] 10.3 fL Normal 6.2-12.0 [facility] Comment on above: Performed By: #### L 500.4050, L501.2300, L501.5200, L100.0100 ####[facility] [address] [place], [address] Platelets (Bld) [#/Vol] 384 10*3/uL Normal 150-450 [facility] Comment on above: Performed By: #### L 500.4050, L501.2300, L501.5200, L100.0100 ####[facility] [address] [place], [address] RBC (Bld) [#/Vol] 5.20 10*6/uL Normal 4.6-6.2 [facility] Comment on above: Performed By: #### L 500.4050, L501.2300, L501.5200, L100.0100 ####[facility] [address] [place], [address] RDW SD 40.3 fl Normal 35.1-43.9 [facility] Comment on above: Performed By: #### L 500.4050, L501.2300, L501.5200, L100.0100 ####[facility] [address] [place], [address] WBC (Bld) [#/Vol] 13.6 10*3/uL High 4.4-11.0 [facility] Comment on above: Performed By: #### L 500.4050, L501.2300, L501.5200, L100.0100 ####[facility] [address] [place], [address] Comprehensive Metabolic Prof ilon 10-17-2024 Albumin [Mass/Vol] 3.7 g/dL Normal 3.2-5.0 [facility] Comment on above: Performed By: #### L 500.4050, L501.2300, L501.5200, L100.0100 ####[facility] [address] [place], [address] Albumin/Globulin [Mass ratio] 0.9 {ratio} Normal 0.9-2.4 [facility] Comment on above: Performed By: #### L 500.4050, L501.2300, L501.5200, L100.0100 ####[facility] [address] [place], [address] ALK P 59 U/L Normal 45-117 [facility] Comment on above: Performed By: #### L 500.4050, L501.2300, L501.5200, L100.0100 ####[facility] [address] [place], [address] ALT [Catalytic activity/Vol] 58 U/L Normal 16-61 [facility] Comment on above: Performed By: #### L 500.4050, L501.2300, L501.5200, L100.0100 ####[facility] [address] [place], [address] AST [Catalytic activity/Vol] 30 U/L Normal 15-37 [facility] Comment on above: Performed By: #### L 500.4050, L501.2300, L501.5200, L100.0100 ####[facility] [address] [place], [address] Bilirubin [Mass/Vol] 0.70 mg/dL Normal 0.20-1.00 [facility] Comment on above: Result Comment: For patients on eltrombopag therapy, use of Dimension [place] TBIL is not recommended. Performed By: #### L 500.4050, L501.2300, L501.5200, L100.0100 ####[facility] [address] [place], [address] BUN/CRE 25.8 RATIO High 10-20 [facility] Comment on above: Performed By: #### L 500.4050, L501.2300, L501.5200, L100.0100 ####[facility] [address] [place], [address] CA,Total 9.2 mg/dL Normal 8.5-10.1 [facility] Comment on above: Performed By: #### L 500.4050, L501.2300, L501.5200, L100.0100 ####[facility] [address] [place], [address] Chloride [Moles/Vol] 103 mmol/L Normal 98-107 [facility] Comment on above: Performed By: #### L 500.4050, L501.2300, L501.5200, L100.0100 ####[facility] [address] [place], [address] CO2 [Moles/Vol] 24.0 mmol/L Normal 21.0-32.0 [facility] Comment on above: Performed By: #### L 500.4050, L501.2300, L501.5200, L100.0100 ####[facility] [address] [place], [address] Creatinine [Mass/Vol] 0.85 mg/dL Normal 0.70-1.30 [facility] Comment on above: Result Comment: The validity of the calculated GFR GFRAA in patients over70 years has not been determined. Clinical correlation isessential. Performed By: #### L 500.4050, L501.2300, L501.5200, L100.0100 ####[facility] [address] [place], [address] ECRCL 94.53 ml/min Normal [facility] Comment on above: Performed By: #### L 500.4050, L501.2300, L501.5200, L100.0100 ####[facility] [address] [place], [address] EST GFR - AA 116 mL/min Normal >60 [facility] Comment on above: Result Comment: Afri can [place]is[place] GFR Calc Performed By: #### L 500.4050, L501.2300, L501.5200, L100.0100 ####[facility] [address] [place], [address] GAP 9 Normal 5-15 [facility] Comment on above: Performed By: #### L 500.4050, L501.2300, L501.5200, L100.0100 ####[facility] [address] [place], [address] GFR/1.73 sq M.predicted among non-blacks MDRD (S/P/Bld) [Vol rate/Area] 96 mL/min/{1.73_m2} Normal >60 [facility] Comment on above: Result Comment: Non- GFR Calc Performed By: #### L 500.4050, L501.2300, L501.5200, L100.0100 ####[facility] [address] [place], [address] Globulin (S) [Mass/Vol] 4.0 g/dL Normal 2.2-4.2 [facility] Comment on above: Performed By: #### L 500.4050, L501.2300, L501.5200, L100.0100 ####[facility] [address] [place], [address] Glucose [Mass/Vol] 247 mg/dL High 74-106 [facility] Comment on above: Result Comment: Gluc ose result greater than or equal to 200 mg/dLsuggests DIABETES MELLITUS per A.D.A. criteria. Performed By: #### L 500.4050, L501.2300, L501.5200, L100.0100 ####[facility] [address] [place], [address] Potassium [Moles/Vol] 3.5 mmol/L Normal 3.5-5.1 [facility] Comment on above: Performed By: #### L 500.4050, L501.2300, L501.5200, L100.0100 ####[facility] [address] [place], [address] Sodium [Moles/Vol] 136 mmol/L Normal 136-145 [facility] Comment on above: Performed By: #### L 500.4050, L501.2300, L501.5200, L100.0100 ####[facility] [address] [place], [address] T PROT 7.7 g/dL Normal 6.4-8.2 [facility] Comment on above: Performed By: #### L 500.4050, L501.2300, L501.5200, L100.0100 ####[facility] [address] [place], [address] Urea nitrogen [Mass/Vol] 22 mg/dL High 7-18 [facility] Comment on above: Performed By: #### L 500.4050, L501.2300, L501.5200, L100.0100 ####[facility] [address] [place], [address] Magnesiumon 10-17-2024 Magnesium [Mass/Vol] 2.3 mg/dL Normal 1.6-2.6 [facility] Comment on above: Performed By: #### L 500.4050, L501.2300, L501.5200, L100.0100 ####[facility] [address] [place], [address] Phosphoruson 10-17-2024 Phosphate [Mass/Vol] 3.3 mg/dL Normal 2.5-4.9 [facility] Comment on above: Performed By: #### L 500.4050, L501.2300, L501.5200, L100.0100 ####[facility] [address] [place], [address] Protein+Creatinine Ratio,Uri neon 10-17-2024 PROT:CRE RATIO 60 mg/g CRE Normal 0-200 [facility] Comment on above: Performed By: #### L 501.0900 ####[facility] [address] [place], [address] Protein (U) [Mass/Vol] 9.5 mg/dL Normal <11.9 [facility] Comment on above: Performed By: #### L 501.0900 ####[facility] [address] [place], [address] UR CREAT 159.00 mg/dL Normal NO RANGE EST. [facility] Comment on above: Performed By: #### L 501.0900 ####[facility] [address] [place], [address] Bedside Glucoseon 10-16-2024 FINGERSTICK GLU 247 mg/dL High -106 [facility] Comment on above: Result Comment: MAYRA GEMENT OF PATIENT CARE PER NURSING PROTOCOL Performed By: #### L 501.080 ####[facility] [address] [place], [address] FINGERSTICK GLU 207 mg/dL High [facility]106 [facility] Comment on above: Result Comment: MAYRA GEMENT OF PATIENT CARE PER NURSING PROTOCOL Performed By: #### L 501.080 ####[facility] [address] [place], [address] FINGERSTICK GLU 293 mg/dL High -106 [facility] Comment on above: Result Comment: MAYRA GEMENT OF PATIENT CARE PER NURSING PROTOCOL Performed By: #### L 501.080 ####[facility] [address] [place], [address] FINGERSTICK GLU 279 mg/dL High -106 [facility] Comment on above: Result Comment: MAYRA GEMENT OF PATIENT CARE PER NURSING PROTOCOL Performed By: #### L 501.080 ####[facility] [address] [place], [address] Discharge Instructionon 02-0 Discharge Instruction Normal [facility] Urinalysis, Completeon 10-16 RBC 0 SEEN Normal 0-5 [facility] Comment on above: Order Comment: BLADD ER TAP Performed By: #### L 400.0001 ####[facility] [address] [place], [address] WBC 0-5 SEEN Normal 0-5 [facility] Comment on above: Order Comment: BLADD ER TAP Performed By: #### L 400.0001 ####[facility] [address] [place], [address] BACTERIA 0 SEEN Normal None Seen [facility] Comment on above: Order Comment: BLADD ER TAP Performed By: #### L 400.0001 ####[facility] [address] [place], [address] EPI,SQUAMOUS 0 SEEN Normal 0-5 [facility] Comment on above: Order Comment: BLADD ER TAP Performed By: #### L 400.0001 ####[facility] [address] [place], [address] Mucus Ql (Urine sed) 0 SEEN Normal [facility] Comment on above: Order Comment: BLADD ER TAP Performed By: #### L 400.0001 ####[facility] [address] [place], [address] Basic Metabolic Profile (BMP )on 10-15-2024 BUN/CRE 17.5 RATIO Normal 10-20 [facility] Comment on above: Order Comment: Comme nts: NPO at [place] prior to lipid panel Performed By: #### L 100.0100, L500.2500, L500.4100 ####[facility] [address] [place], [address] CA,Total 9.5 mg/dL Normal 8.5-10.1 [facility] Comment on above: Order Comment: Comme nts: NPO at [place] prior to lipid panel Performed By: #### L 100.0100, L500.2500, L500.4100 ####[facility] [address] [place], [address] Chloride [Moles/Vol] 102 mmol/L Normal 98-107 [facility] Comment on above: Order Comment: Comme nts: NPO at [place] prior to lipid panel Performed By: #### L 100.0100, L500.2500, L500.4100 ####[facility] [address] [place], [address] CO2 [Moles/Vol] 23.0 mmol/L Normal 21.0-32.0 [facility] Comment on above: Order Comment: Comme nts: NPO at [place] prior to lipid panel Performed By: #### L 100.0100, L500.2500, L500.4100 ####[facility] [address] [place], [address] Creatinine [Mass/Vol] 0.86 mg/dL Normal 0.70-1.30 [facility] Comment on above: Order Comment: Comme nts: NPO at [place] prior to lipid panel Result Comment: The validity of the calculated GFR GFRAA in patients over70 years has not been determined. Clinical correlation isessential. Performed By: #### L 100.0100, L500.2500, L500.4100 ####[facility] [address] [place], [address] ECRCL 96.78 ml/min Normal [facility] Comment on above: Order Comment: Comme nts: NPO at [place] prior to lipid panel Performed By: #### L 100.0100, L500.2500, L500.4100 ####[facility] [address] [place], [address] EST GFR - AA 115 mL/min Normal >60 [facility] Comment on above: Order Comment: Comme nts: NPO at [place] prior to lipid panel Result Comment: Afri can [place] GFR Calc Performed By: #### L 100.0100, L500.2500, L500.4100 ####[facility] [address] [place], [address] GAP 10 Normal 5-15 [facility] Comment on above: Order Comment: Comme nts: NPO at [place] prior to lipid panel Performed By: #### L 100.0100, L500.2500, L500.4100 ####[facility] [address] [place], [address] GFR/1.73 sq M.predicted among non-blacks MDRD (S/P/Bld) [Vol rate/Area] 95 mL/min/{1.73_m2} Normal >60 [facility] Comment on above: Order Comment: Comme nts: NPO at [place] prior to lipid panel Result Comment: Non- GFR Calc Performed By: #### L 100.0100, L500.2500, L500.4100 ####[facility] [address] [place], [address] Glucose [Mass/Vol] 274 mg/dL High 74-106 [facility] Comment on above: Order Comment: Comme nts: NPO at [place] prior to lipid panel Result Comment: Gluc ose result greater than or equal to 200 mg/dLsuggests DIABETES MELLITUS per A.D.A. criteria. Performed By: #### L 100.0100, L500.2500, L500.4100 ####[facility] [address] [place], [address] Potassium [Moles/Vol] 3.9 mmol/L Normal 3.5-5.1 [facility] Comment on above: Order Comment: Comme nts: NPO at [place] prior to lipid panel Performed By: #### L 100.0100, L500.2500, L500.4100 ####[facility] [address] [place], [address] Sodium [Moles/Vol] 135 mmol/L Low 136-145 [facility] Comment on above: Order Comment: Comme nts: NPO at [place] prior to lipid panel Performed By: #### L 100.0100, L500.2500, L500.4100 ####[facility] [address] [place], [address] Urea nitrogen [Mass/Vol] 15 mg/dL Normal 7-18 [facility] Comment on above: Order Comment: Comme nts: NPO at [place] prior to lipid panel Performed By: #### L 100.0100, L500.2500, L500.4100 ####[facility] [address] [place], [address] Bedside Glucoseon 10-15-2024 FINGERSTICK GLU 274 mg/dL High 74-106 [facility] Comment on above: Result Comment: MAYRA GEMENT OF PATIENT CARE PER NURSING PROTOCOL Performed By: #### L 501.080 ####[facility] [address] [place], [address] FINGERSTICK GLU 194 mg/dL High [facility]106 [facility] Comment on above: Result Comment: MAYRA GEMENT OF PATIENT CARE PER NURSING PROTOCOL Performed By: #### L 501.080 ####[facility] [address] [place], [address] FINGERSTICK GLU 343 mg/dL High [facility]106 [facility] Comment on above: Result Comment: MAYRA GEMENT OF PATIENT CARE PER NURSING PROTOCOL Performed By: #### L 501.080 ####[facility] [address] [place], [address] FINGERSTICK GLU 299 mg/dL High -106 [facility] Comment on above: Result Comment: MAYRA GEMENT OF PATIENT CARE PER NURSING PROTOCOL Performed By: #### L 501.080 ####[facility] [address] [place], [address] FINGERSTICK GLU 294 mg/dL High [facility]106 [facility] Comment on above: Result Comment: MAYRA GEMENT OF PATIENT CARE PER NURSING PROTOCOL Performed By: #### L 501.080 ####[facility] [address] [place], [address] CBC W/Diff, Automatedon 02-0 6-2024 Absolute Lymph 2.57 X10 3/uL Normal 0.83-4.51 [facility] Comment on above: Performed By: #### L 100.0100, L500.2500, L500.4100 ####[facility] [address] [place], [address] Absolute Neut 7.6 X10 3/uL Normal 2.0-7.7 [facility] Comment on above: Performed By: #### L 100.0100, L500.2500, L500.4100 ####[facility] [address] [place], [address] Basophils/100 WBC (Bld) 0.4 % Normal 0-1 [facility] Comment on above: Performed By: #### L 100.0100, L500.2500, L500.4100 ####[facility] [address] [place], [address] Eosinophils/100 WBC (Bld) 1.2 % Normal 0-5 [facility] Comment on above: Performed By: #### L 100.0100, L500.2500, L500.4100 ####[facility] [address] [place], [address] Erythrocyte distribution width (RBC) [Ratio] 12.1 % Normal 11.6-14.6 [facility] Comment on above: Performed By: #### L 100.0100, L500.2500, L500.4100 ####[facility] [address] [place], [address] Hematocrit (Bld) [Volume fraction] 46.1 % Normal 40-54 [facility] Comment on above: Performed By: #### L 100.0100, L500.2500, L500.4100 ####[facility] [address] [place], [address] Hemoglobin (Bld) [Mass/Vol] 15.8 g/dL Normal 13.0-16.5 [facility] Comment on above: Performed By: #### L 100.0100, L500.2500, L500.4100 ####[facility] [address] [place], [address] IG% 1.200 High 0.0-0.9 [facility] Comment on above: Result Comment: IG% - Immature Granulocytes (promyelocytes, myelocytes andmetamyelocytes) > 1% indicates that a LEFT SHIFT is Present. Performed By: #### L 100.0100, L500.2500, L500.4100 ####[facility] [address] [place], [address] Lymphocytes/100 WBC (Bld) 22.9 % Normal 19-41 [facility] Comment on above: Performed By: #### L 100.0100, L500.2500, L500.4100 ####[facility] [address] [place], [address] MCH (RBC) [Entitic mass] 30.9 pg Normal 27.0-32.0 [facility] Comment on above: Performed By: #### L 100.0100, L500.2500, L500.4100 ####[facility] [address] [place], [address] MCHC (RBC) [Mass/Vol] 34.3 g/dL Normal 32-36 [facility] Comment on above: Performed By: #### L 100.0100, L500.2500, L500.4100 ####[facility] [address] [place], [address] MCV (RBC) [Entitic vol] 90.2 fL Normal 80-94 [facility] Comment on above: Performed By: #### L 100.0100, L500.2500, L500.4100 ####[facility] [address] [place], [address] Monocytes/100 WBC (Bld) 6.4 % Normal 0-10 [facility] Comment on above: Performed By: #### L 100.0100, L500.2500, L500.4100 ####[facility] [address] [place], [address] Neutrophils/100 WBC (Bld) 67.9 % Normal 47-70 [facility] Comment on above: Performed By: #### L 100.0100, L500.2500, L500.4100 ####[facility] [address] [place], [address] Nucleated RBC (Bld) [#/Vol] 0 10*3/uL Normal 0-5 [facility] Comment on above: Performed By: #### L 100.0100, L500.2500, L500.4100 ####[facility] [address] [place], [address] Platelet mean volume (Bld) [Entitic vol] 10.2 fL Normal 6.2-12.0 [facility] Comment on above: Performed By: #### L 100.0100, L500.2500, L500.4100 ####[facility] [address] [place], [address] Platelets (Bld) [#/Vol] 355 10*3/uL Normal 150-450 [facility] Comment on above: Performed By: #### L 100.0100, L500.2500, L500.4100 ####[facility] [address] [place], [address] RBC (Bld) [#/Vol] 5.11 10*6/uL Normal 4.6-6.2 [facility] Comment on above: Performed By: #### L 100.0100, L500.2500, L500.4100 ####[facility] [address] [place], [address] RDW SD 39.7 fl Normal 35.1-43.9 [facility] Comment on above: Performed By: #### L 100.0100, L500.2500, L500.4100 ####[facility] [address] [place], [address] WBC (Bld) [#/Vol] 11.2 10*3/uL High 4.4-11.0 [facility] Comment on above: Performed By: #### L 100.0100, L500.2500, L500.4100 ####[facility] [address] [place], [address] Hemoglobin A1con 10-15-2024 HbA1c (Bld) [Mass fraction] 5.8 % High 3.8-5.6 [facility] Comment on above: Result Comment: Norm al < 5.7 % Prediabetic 5.7 - 6.4 % Diabetic >or= 6.5 % Please note range changes. Performed By: #### L 501.9985 ####[facility] [address] [place], [address] Lipid Profileon 10-15-2024 Cholesterol [Mass/Vol] 152 mg/dL Normal 200 [facility] Comment on above: Order Comment: Comme nts: NPO at [place] prior to lipid panel Result Comment: <200 mg/dL Desirable 200-240 mg/dL Borderline >240 mg/dL High Risk Performed By: #### L 100.0100, L500.2500, L500.4100 ####[facility] [address] [place], [address] Cholesterol in HDL [Mass/Vol] 36 mg/dL Low [facility] Comment on above: Order Comment: Comme nts: NPO at [place] prior to lipid panel Result Comment: The drugs N-Acetylcysteine and Metamizole may falselydepress this assay. Reference Range HDL <40 mg/dL Low HDL Cholesterol HDL >or= 60 mg/dL High HDL Cholesterol Performed By: #### L 100.0100, L500.2500, L500.4100 ####[facility] [address] [place], [address] LDL TNP Normal 0-130 [facility] Comment on above: Order Comment: Comme nts: NPO at [place] prior to lipid panel Performed By: #### L 100.0100, L500.2500, L500.4100 ####[facility] [address] [place], [address] Triglyceride [Mass/Vol] 451 mg/dL High [facility] Comment on above: Order Comment: Comme nts: NPO at [place] prior to lipid panel Result Comment: The drugs N-Acetylcysteine and Metamizole may falselydepress this assay.TRIGLYCERIDE IS GREATER THAN 400 mg/dL.LDL RESULT IS INVALID AND WILL NOT BE REPORTED.Serum Triglycerides Reference Interval Normal <150 mg/dL Borderline high 150 - 199 mg/dL High 200 - 499 mg/dL Very High > or = 500 mg/dL Performed By: #### L 100.0100, L500.2500, L500.4100 ####[facility] [address] [place], [address] VLDL TNP Normal 5-40 [facility] Comment on above: Order Comment: Comme nts: NPO at [place] prior to lipid panel Performed By: #### L 100.0100, L500.2500, L500.4100 ####[facility] [address] [place], [address] MR/CON.PCM.NEon 10-15-2024 MR/CON.PCM.NE Normal [facility] STROKE Brain/Head without Co nton 10-15-2024 STROKE Brain/Head without Cont Normal [facility] 12 Lead EKGon 10-14-2024 12 Lead EKG Normal [facility] Basic Metabolic Profile (BMP )on 10-14-2024 BUN/CRE 23.1 RATIO High 10-20 [facility] Comment on above: Order Comment: 'TROP ' Serial specimen #1, #2 or #3: 1 Performed By: #### L 300.4310, L501.4020, L100.0100, L500.2500, L300.3900 ####[facility] [address] [place], [address] CA,Total 9.6 mg/dL Normal 8.5-10.1 [facility] Comment on above: Order Comment: 'TROP ' Serial specimen #1, #2 or #3: 1 Performed By: #### L 300.4310, L501.4020, L100.0100, L500.2500, L300.3900 ####[facility] [address] [place], [address] Chloride [Moles/Vol] 103 mmol/L Normal 98-107 [facility] Comment on above: Order Comment: 'TROP ' Serial specimen #1, #2 or #3: 1 Performed By: #### L 300.4310, L501.4020, L100.0100, L500.2500, L300.3900 ####[facility] [address] [place], [address] CO2 [Moles/Vol] 27.0 mmol/L Normal 21.0-32.0 [facility] Comment on above: Order Comment: 'TROP ' Serial specimen #1, #2 or #3: 1 Performed By: #### L 300.4310, L501.4020, L100.0100, L500.2500, L300.3900 ####[facility] [address] [place], [address] Creatinine [Mass/Vol] 0.82 mg/dL Normal 0.70-1.30 [facility] Comment on above: Order Comment: 'TROP ' Serial specimen #1, #2 or #3: 1 Result Comment: The validity of the calculated GFR GFRAA in patients over70 years has not been determined. Clinical correlation isessential. Performed By: #### L 300.4310, L501.4020, L100.0100, L500.2500, L300.3900 ####[facility] [address] [place], [address] ECRCL 103.06 ml/min Normal [facility] Comment on above: Order Comment: 'TROP ' Serial specimen #1, #2 or #3: 1 Performed By: #### L 300.4310, L501.4020, L100.0100, L500.2500, L300.3900 ####[facility] [address] [place], [address] EST GFR - AA 121 mL/min Normal >60 [facility] Comment on above: Order Comment: 'TROP ' Serial specimen #1, #2 or #3: 1 Result Comment: Afri can Wallisian GFR Calc Performed By: #### L 300.4310, L501.4020, L100.0100, L500.2500, L300.3900 ####[facility] [address] [place], [address] GAP 8 Normal 5-15 [facility] Comment on above: Order Comment: 'TROP ' Serial specimen #1, #2 or #3: 1 Performed By: #### L 300.4310, L501.4020, L100.0100, L500.2500, L300.3900 ####[facility] [address] [place], [address] GFR/1.73 sq M.predicted among non-blacks MDRD (S/P/Bld) [Vol rate/Area] 100 mL/min/{1.73_m2} Normal >60 [facility] Comment on above: Order Comment: 'TROP ' Serial specimen #1, #2 or #3: 1 Result Comment: Non- GFR Calc Performed By: #### L 300.4310, L501.4020, L100.0100, L500.2500, L300.3900 ####[facility] [address] [place], [address] Glucose [Mass/Vol] 222 mg/dL High 74-106 [facility] Comment on above: Order Comment: 'TROP ' Serial specimen #1, #2 or #3: 1 Result Comment: Gluc ose result greater than or equal to 200 mg/dLsuggests DIABETES MELLITUS per A.D.A. criteria. Performed By: #### L 300.4310, L501.4020, L100.0100, L500.2500, L300.3900 ####[facility] [address] [place], [address] Potassium [Moles/Vol] 4.0 mmol/L Normal 3.5-5.1 [facility] Comment on above: Order Comment: 'TROP ' Serial specimen #1, #2 or #3: 1 Performed By: #### L 300.4310, L501.4020, L100.0100, L500.2500, L300.3900 ####[facility] [address] [place], [address] Sodium [Moles/Vol] 138 mmol/L Normal 136-145 [facility] Comment on above: Order Comment: 'TROP ' Serial specimen #1, #2 or #3: 1 Performed By: #### L 300.4310, L501.4020, L100.0100, L500.2500, L300.3900 ####[facility] [address] [place], [address] Urea nitrogen [Mass/Vol] 19 mg/dL High 7-18 [facility] Comment on above: Order Comment: 'TROP ' Serial specimen #1, #2 or #3: 1 Performed By: #### L 300.4310, L501.4020, L100.0100, L500.2500, L300.3900 ####[facility] [address] [place], [address] Bedside Glucoseon 10-14-2024 FINGERSTICK GLU 206 mg/dL High 74-106 [facility] Comment on above: Result Comment: MAYRA GEMENT OF PATIENT CARE PER NURSING PROTOCOL Performed By: #### L 501.080 ####[facility] [address] [place], [address] FINGERSTICK GLU 189 mg/dL High 74-106 [facility] Comment on above: Result Comment: MAYRA GEMENT OF PATIENT CARE PER NURSING PROTOCOL Performed By: #### L 501.080 ####[facility] [address] [place], [address] FINGERSTICK GLU 220 mg/dL High -106 [facility] Comment on above: Result Comment: MAYRA GEMENT OF PATIENT CARE PER NURSING PROTOCOL Performed By: #### L 501.080 ####[facility] [address] [place], [address] Brain without Contraston Brain without Contrast Normal [facility] CBC W/Diff, Automatedon Absolute Lymph 2.13 X10 3/uL Normal 0.83-4.51 [facility] Comment on above: Performed By: #### L 300.4310, L501.4020, L100.0100, L500.2500, L300.3900 ####[facility] [address] [place], [address] Absolute Neut 5.4 X10 3/uL Normal 2.0-7.7 [facility] Comment on above: Performed By: #### L 300.4310, L501.4020, L100.0100, L500.2500, L300.3900 ####[facility] [address] [place], [address] Basophils/100 WBC (Bld) 0.8 % Normal 0-1 [facility] Comment on above: Performed By: #### L 300.4310, L501.4020, L100.0100, L500.2500, L300.3900 ####[facility] [address] [place], [address] Eosinophils/100 WBC (Bld) 2.7 % Normal 0-5 [facility] Comment on above: Performed By: #### L 300.4310, L501.4020, L100.0100, L500.2500, L300.3900 ####[facility] [address] [place], [address] Erythrocyte distribution width (RBC) [Ratio] 12.2 % Normal 11.6-14.6 [facility] Comment on above: Performed By: #### L 300.4310, L501.4020, L100.0100, L500.2500, L300.3900 ####[facility] [address] [place], [address] Hematocrit (Bld) [Volume fraction] 44.0 % Normal 40-54 [facility] Comment on above: Performed By: #### L 300.4310, L501.4020, L100.0100, L500.2500, L300.3900 ####[facility] [address] [place], [address] Hemoglobin (Bld) [Mass/Vol] 15.0 g/dL Normal 13.0-16.5 [facility] Comment on above: Performed By: #### L 300.4310, L501.4020, L100.0100, L500.2500, L300.3900 ####[facility] [address] [place], [address] IG% 1.600 High 0.0-0.9 [facility] Comment on above: Result Comment: IG% - Immature Granulocytes (promyelocytes, myelocytes andmetamyelocytes) > 1% indicates that a LEFT SHIFT is Present. Performed By: #### L 300.4310, L501.4020, L100.0100, L500.2500, L300.3900 ####[facility] [address] [place], [address] Lymphocytes/100 WBC (Bld) 24.4 % Normal 19-41 [facility] Comment on above: Performed By: #### L 300.4310, L501.4020, L100.0100, L500.2500, L300.3900 ####[facility] [address] [place], [address] MCH (RBC) [Entitic mass] 31.3 pg Normal 27.0-32.0 [facility] Comment on above: Performed By: #### L 300.4310, L501.4020, L100.0100, L500.2500, L300.3900 ####[facility] [address] [place], [address] MCHC (RBC) [Mass/Vol] 34.1 g/dL Normal 32-36 [facility] Comment on above: Performed By: #### L 300.4310, L501.4020, L100.0100, L500.2500, L300.3900 ####[facility] [address] [place], [address] MCV (RBC) [Entitic vol] 91.9 fL Normal 80-94 [facility] Comment on above: Performed By: #### L 300.4310, L501.4020, L100.0100, L500.2500, L300.3900 ####[facility] [address] [place], [address] Monocytes/100 WBC (Bld) 8.6 % Normal 0-10 [facility] Comment on above: Performed By: #### L 300.4310, L501.4020, L100.0100, L500.2500, L300.3900 ####[facility] [address] [place], [address] Neutrophils/100 WBC (Bld) 61.9 % Normal 47-70 [facility] Comment on above: Performed By: #### L 300.4310, L501.4020, L100.0100, L500.2500, L300.3900 ####[facility] [address] [place], [address] Nucleated RBC (Bld) [#/Vol] 0 10*3/uL Normal 0-5 [facility] Comment on above: Performed By: #### L 300.4310, L501.4020, L100.0100, L500.2500, L300.3900 ####[facility] [address] [place], [address] Platelet mean volume (Bld) [Entitic vol] 10.2 fL Normal 6.2-12.0 [facility] Comment on above: Performed By: #### L 300.4310, L501.4020, L100.0100, L500.2500, L300.3900 ####[facility] [address] [place], [address] Platelets (Bld) [#/Vol] 293 10*3/uL Normal 150-450 [facility] Comment on above: Performed By: #### L 300.4310, L501.4020, L100.0100, L500.2500, L300.3900 ####[facility] [address] [place], [address] RBC (Bld) [#/Vol] 4.79 10*6/uL Normal 4.6-6.2 [facility] Comment on above: Performed By: #### L 300.4310, L501.4020, L100.0100, L500.2500, L300.3900 ####[facility] [address] [place], [address] RDW SD 40.9 fl Normal 35.1-43.9 [facility] Comment on above: Performed By: #### L 300.4310, L501.4020, L100.0100, L500.2500, L300.3900 ####[facility] [address] [place], [address] WBC (Bld) [#/Vol] 8.7 10*3/uL Normal 4.4-11.0 [facility] Comment on above: Performed By: #### L 300.4310, L501.4020, L100.0100, L500.2500, L300.3900 ####[facility] [address] [place], [address] Chest 1 Viewon 10-14-2024 Chest 1 View Normal [facility] Echo Complete W/ Contraston 10-14-2024 Echo Complete W/ Contrast Normal [facility] Emergency Department Summary on 10-14-2024 Emergency Department Summary Normal [facility] H AND P Exam - Hospitaliston 10-14-2024 H&P Exam - Hospitalist Normal [facility] L501.4020on 10-14-2024 TROPONIN-I HS 11 pg/mL Normal 3.0-78.0 [facility] Comment on above: Order Comment: 'TROP ' Serial specimen #1, #2 or #3: 1 Result Comment: Plea se Note: New Test Units and Gender Specific Reference Ranges. For more information see Policy Stat Procedure [place] High Sensitivity Troponin (TNIH) and attachments. Performed By: #### L 300.4310, L501.4020, L100.0100, L500.2500, L300.3900 ####[facility] [address] [place], [address] MRA Head ONLY without Contra ston 10-14-2024 MRA Head ONLY without Contrast Normal [facility] MRA Neck WITH and W/O Contra ston 10-14-2024 MRA Neck WITH and W/O Contrast Normal [facility] Partial Thromboplast Timeon 10-14-2024 aPTT Coag (Bld) [Time] 23.9 s Low 24.1-36.2 [facility] Comment on above: Performed By: #### L 300.4310, L501.4020, L100.0100, L500.2500, L300.3900 ####[facility] [address] [place], [address] Prothrombin Time w/INRon INR Coag (PPP) [Relative time] 1.0 {INR} Normal [facility] Comment on above: Performed By: #### L 300.4310, L501.4020, L100.0100, L500.2500, L300.3900 ####[facility] [address] [place], [address] PT Coag (PPP) [Time] 13.2 s Normal 11.7-14.9 [facility] Comment on above: Performed By: #### L 300.4310, L501.4020, L100.0100, L500.2500, L300.3900 ####[facility] [address] [place], [place], [address] STROKE Brain/Head without Co nton 10-14-2024 STROKE Brain/Head without Cont Normal [facility] ECG 12 Leadon 09-15-2024 Atrial Rate [facility] [place] [facility] P-R Interval [facility] Q-T Interval [facility] Q-T Interval (corrected) [facility] QRS Duration [facility] QTC Calculation (Bezet) [facility] R [place] [facility] T [place] [facility] Ventricular Rate [facility] HEMOGLOBIN A1con 09-15-2024 HEMOGLOBIN A1c 8.1 % of total Hgb High <5.7 [facility] Comment on above: Order Comment: FASTI NG:YES FASTING: YES Result Comment: For someone without known diabetes, a hemoglobin A1c value of 6.5% or greater indicates that they may have diabetes and this should be confirmed with a follow-up test. For someone with known diabetes, a value <7% indicates that their diabetes is well controlled and a value greater than or equal to 7% indicates suboptimal control. A1c targets should be individualized based on duration of diabetes, age, comorbid conditions, and other considerations. Currently, no consensus exists regarding use of hemoglobin A1c for diagnosis of diabetes for children. Performed By: #### 4 96 #### [facility] [address], [address] [place] [address] Shredder Tender: Ambrose Blake MD LIPID PANEL, [facility] Cholesterol [Mass/Vol] 132 mg/dL Normal <200 [facility] Comment on above: Order Comment: FASTI NG:YES FASTING: YES Performed By: #### 7 600 #### [facility] [address], [address] [place] [address] Shredder Tender: Ambrose Blake MD Cholesterol in HDL [Mass/Vol] 28 mg/dL Low > OR = 40 [facility] Comment on above: Order Comment: FASTI NG:YES FASTING: YES Performed By: #### 7 600 #### [facility] [address], [address] [place] [address] Shredder Tender: Ambrose Blake MD Cholesterol in LDL [Mass/Vol] 58 mg/dL Normal [facility] Comment on above: Order Comment: FASTI NG:YES FASTING: YES Result Comment: Refe rence range: <100 Desirable range <100 mg/dL for primary prevention; <70 mg/dL for patients with CHD or diabetic patients with > or = 2 CHD risk factors. LDL-C is now calculated using the Maria Luisa calculation, which is a validated novel method providing better accuracy than the Friedewald equation in the estimation of LDL-C. Rashi LEBRON et al. CRIS. 2013;310(19): 9032-3979 (http://education.[employer]/faq/ZYL115) Performed By: #### 7 600 #### [facility] [address], [address] [place] [address] Shredder Tender: Ambrose Blake MD Cholesterol.total/C holesterol in HDL [Mass ratio] 4.7 {ratio} Normal <5.0 [facility] Comment on above: Order Comment: FASTI NG:YES FASTING: YES Performed By: #### 7 600 #### [facility] [address], [address] [place] [address] Shredder Tender: Ambrose Blake MD NON HDL CHOLESTEROL 104 mg/dL (calc) Normal <130 [facility] Comment on above: Order Comment: FASTI NG:YES FASTING: YES Result Comment: For patients with diabetes plus 1 major ASCVD risk factor, treating to a non-HDL-C goal of <100 mg/dL (LDL-C of <70 mg/dL) is considered a therapeutic option. Performed By: #### 7 600 #### [facility] [address], [address] [place] [address] Shredder Tender: Ambrose Blake MD Triglyceride [Mass/Vol] 380 mg/dL High <150 [facility] Comment on above: Order Comment: FASTI NG:YES FASTING: YES Result Comment: If a non-fasting specimen was collected, consider repeat triglyceride testing on a fasting specimen if clinically indicated. Dwayne et al. J. of Clin. Lipidol. 2015;9:129-169. Performed By: #### 7 600 #### [facility] [address], [address] [place] [address] Shredder Tender: Ambrose Blake MD HEMOGLOBIN A1con 07-04-2024 HEMOGLOBIN A1c 8.1 % of total Hgb High <5.7 [facility] Comment on above: Order Comment: MACHO BULL FASTING:YES FASTING: YES Result Comment: For someone without known diabetes, a hemoglobin A1c value of 6.5% or greater indicates that they may have diabetes and this should be confirmed with a follow-up test. For someone with known diabetes, a value <7% indicates that their diabetes is well controlled and a value greater than or equal to 7% indicates suboptimal control. A1c targets should be individualized based on duration of diabetes, age, comorbid conditions, and other considerations. Currently, no consensus exists regarding use of hemoglobin A1c for diagnosis of diabetes for children. Performed By: #### 4 96 #### [facility] [address], [address] [place] [address] Shredder Tender: Amrbose Blake MD LIPID PANEL, [address] Cholesterol [Mass/Vol] 174 mg/dL Normal <200 [facility] Comment on above: Order Comment: MACHO BULL FASTING:YES FASTING: YES Performed By: #### 7 600 #### [facility] [address], [address] [place] [address] Shredder Tender: Ambrose Blake MD Cholesterol in HDL [Mass/Vol] 34 mg/dL Low > OR = 40 [facility] Comment on above: Order Comment: MACHO BULL FASTING:YES FASTING: YES Performed By: #### 7 600 #### [facility] [address], [address] [place] [address] Shredder Tender: Ambrose Blake MD Cholesterol.total/C holesterol in HDL [Mass ratio] 5.1 {ratio} High <5.0 [facility] Comment on above: Order Comment: MACHO BULL FASTING:YES FASTING: YES Performed By: #### 7 600 #### [facility] [address], [address] [place] [address] Shredder Tender: Ambrose Blake MD LDL-CHOLESTEROL Normal [facility] Comment on above: Order Comment: MACHO BULL FASTING:YES FASTING: YES Result Comment: LDL cholesterol not calculated. Triglyceride levels greater than 400 mg/dL invalidate calculated LDL results. Reference range: <100 Desirable range <100 mg/dL for primary prevention; <70 mg/dL for patients with CHD or diabetic patients with > or = 2 CHD risk factors. LDL-C is now calculated using the Maria Luisa calculation, which is a validated novel method providing better accuracy than the Friedewald equation in the estimation of LDL-C. Rashi LEBRON et al. CRIS. 2013;310(19): 4589-7077 (http://education.[employer]/faq/PBM175) Performed By: #### 7 600 #### [facility] [address], [address] [place] [address] Shredder Tender: Ambrose Blake MD NON HDL CHOLESTEROL 140 mg/dL (calc) High <130 [facility] Comment on above: Order Comment: MACHO BULL FASTING:YES FASTING: YES Result Comment: For patients with diabetes plus 1 major ASCVD risk factor, treating to a non-HDL-C goal of <100 mg/dL (LDL-C of <70 mg/dL) is considered a therapeutic option. Performed By: #### 7 600 #### [facility] [address], [address] [place] [address] Shredder Tender: Ambrose Blake MD Triglyceride [Mass/Vol] 489 mg/dL High <150 [facility] Comment on above: Order Comment: MACHO BULL FASTING:YES FASTING: YES Result Comment: If a non-fasting specimen was collected, consider repeat triglyceride testing on a fasting specimen if clinically indicated. Dwayne et al. J. of Clin. Lipidol. 2015;9:129-169. Performed By: #### 7 600 #### [facility] [address], [address] [place] [address] Shredder Tender: Ambrose Blake MD CT ABDOMEN PELVIS WITH AND W ITHOUT CONTRASTon 09-04-2023 CT ABDOMEN PELVIS WITH AND WITHOUT CONTRAST EXAMINATION: CT OF THE ABDOMEN AND PELVIS WITH AND WITHOUT CONTRAST 09/04/2023 TECHNIQUE: CT of the abdomen and pelvis was performed with and without the administration of intravenous contrast. Multiplanar reformatted images are provided for review. Dose modulation, iterative reconstruction, and/or weight based adjustment of the mA/kV was utilized to reduce the radiation dose to as low as reasonably achievable. COMPARISON: 03/26/2019. HISTORY: ORDERING SYSTEM PROVIDED HISTORY: sexual dysfunction; TECHNOLOGIST PROVIDED HISTORY: Illness/Other Acuity: Unknown Reason for Exam: sexual dysfunction Type of Encounter: Initial Additional signs and symptoms: no ORDERING SYSTEM PROVIDED DIAGNOSIS CODES: R37 Sexual dysfunction FINDINGS: Lower Chest: Mild predominantly dependent atelectasis. No focal consolidations or pleural effusions. Heart is normal in size. No pericardial effusion. Coronary artery calcifications. Organs: Unremarkable liver, spleen, pancreas, gallbladder, adrenal glands and right kidney. Benign left renal cysts measuring up to 1.1 cm in size. No follow-up imaging is recommended. Left kidney is otherwise unremarkable. GI/Bowel: No evidence for bowel obstruction or definite bowel wall thickening to large or small bowel. Normal appendix. Grossly unremarkable stomach. Pelvis: Unremarkable urinary bladder. Stable enlarged prostate. Peritoneum/Retroperit oneum: No ascites or focal fluid collections. No intraperitoneal free air. No evidence for abdominal aortic aneurysm. No lymphadenopathy is seen. Mild atherosclerosis. Bones/Soft Tissues: No acute bone or soft tissue abnormality. No suspicious focal bony lesions. Multilevel degenerative changes to the spine, not appreciably changed from prior exam. Stable degenerative changes to both hips, left somewhat worse than right. IMPRESSION: No acute findings to the abdomen or pelvis. No findings to explain the patient's symptoms. Atherosclerosis to include coronary artery disease. Stable enlarged prostate. ACN/jcw Workstation ID: [id number] Dictated by: ALFA ARNOLD on SatSep 06, 2023 2:45:56 PM EST Transcribed by: EMEKA PHAM on SatSep 06, 2023 3:01:28 PM EST Finalized by: ALFA ARNOLD on SatSep 06, 2023 3:20:04 PM EST Normal [facility] Comment on above: Order Comment: Injur y/Trauma or Illness?:Illness/Other How long have you had these symptoms (acute/chronic)?:Unknown Reason for exam?:sexual dysfunction Type of Exam?:Initial Additional signs and symptoms?:no ECG 12 Leadon 08-27-[address] [facility] [place] [facility] P-R Interval [facility] Q-T Interval [facility] Q-T Interval (corrected) [facility] QRS Duration [facility] QTC Calculation (Bezet) [facility] R [place] [facility] T [place] [facility] Ventricular Rate [facility] ECG 12 Leadon 08-28-2022 Atrial Rate [facility] [place] [facility] P-R Interval [facility] Q-T Interval [facility] Q-T Interval (corrected) [facility] QRS Duration [facility] QTC Calculation (Bezet) [facility] R [place] [facility] T [place] [facility] Ventricular Rate [facility] Basic Metabolic Panelon 05-0 Anion gap [Moles/Vol] 9.00 mmol/L Normal 8.00-16.00 [facility] Comment on above: Order Comment: Items in this order include: Basic Metabolic Panel, HgbA1C Testing Performed By: [facility] [address] [place] [address] CLIA#:[id number] Dr. Antonio Penn, Skoog Machine Operator Performed By: #### C 406, C45 #### [facility] [address] [place] [address] B/C Ratio 20.0 Ratio Normal [facility] Comment on above: Order Comment: Items in this order include: Basic Metabolic Panel, HgbA1C Testing Performed By: [facility] [address] [place] [address] CLIA#:[id number] Dr. Antonio Penn, Skoog Machine Operator Performed By: #### C 406, C45 #### [facility] [address] [place] [address] Calcium [Mass/Vol] 9.2 mg/dL Normal 8.3-10.6 [facility] Comment on above: Order Comment: Items in this order include: Basic Metabolic Panel, HgbA1C Testing Performed By: [facility] [address] [place] [address] CLIA#:[id number] Dr[address] Antonio Penn, Skoog Machine Operator Performed By: #### C 406, C45 #### [facility] [address] [place] [address] Chloride [Moles/Vol] 104 mmol/L Normal 98-107 [facility] Comment on above: Order Comment: Items in this order include: Basic Metabolic Panel, HgbA1C Testing Performed By: [facility] [address] [place] [address] CLIA#:[id number] Dr. Antonio Penn, Skoog Machine Operator Performed By: #### C 406, C45 #### [facility] [address] [place] [address] CO2 [Moles/Vol] 26 mmol/L Normal 20-31 [facility] Comment on above: Order Comment: Items in this order include: Basic Metabolic Panel, HgbA1C Testing Performed By: [facility] [address] [place] [address] CLIA#:[id number] [address] Antonio Penn, Skoog Machine Operator Performed By: #### C 406, C45 #### [facility] [address] [facility] [place] [address] Creatinine [Mass/Vol] 0.8 mg/dL Normal 0.7-1.3 [facility] Comment on above: Order Comment: Items in this order include: Basic Metabolic Panel, HgbA1C Testing Performed By: [facility] [address] [place] [address] CLIA#:[id number] Dr. Antonio Penn, Skoog Machine Operator Performed By: #### C 406, C45 #### [facility] [address] [place] [address] GFR 98 mL/min per 1.73 Normal >60 [facility] Comment on above: Order Comment: Items in this order include: Basic Metabolic Panel, HgbA1C Testing Performed By: [facility] [address] [place] [address] CLIA#:[id number] [address] Antonio Penn, Skoog Machine Operator Result Comment: The GFR estimate is not adjusted for race. If the patient's race is -Wallisian, the GFR estimate must be multiplied by a factor of 1.21. Performed By: #### C 406, C45 #### [facility] [address] [facility] [place] [address] Glucose [Mass/Vol] 189 mg/dL High 74-106 [facility] Comment on above: Order Comment: Items in this order include: Basic Metabolic Panel, HgbA1C Testing Performed By: [facility] [address] [place] [address] CLIA#:[id number] [address] Antonio Penn, Skoog Machine Operator Performed By: #### C 406, C45 #### [facility] [address] [place] [address] Potassium [Moles/Vol] 4.4 mmol/L Normal 3.5-5.1 [facility] Comment on above: Order Comment: Items in this order include: Basic Metabolic Panel, HgbA1C Testing Performed By: [facility] [address] [place] [address] CLIA#:[id number] Dr. Antonio Penn, Skoog Machine Operator Performed By: #### C 406, C45 #### [facility] [address] [place] [address] Sodium [Moles/Vol] 139 mmol/L Normal 136-145 [facility] Comment on above: Order Comment: Items in this order include: Basic Metabolic Panel, HgbA1C Testing Performed By: [facility] [address] [place] [address] CLIA#:[id number] [address] Antonio Penn, Skoog Machine Operator Performed By: #### C 406, C45 #### [facility] [address] [place] [address] Urea nitrogen [Mass/Vol] 16 mg/dL Normal 9-23 [facility] Comment on above: Order Comment: Items in this order include: Basic Metabolic Panel, HgbA1C Testing Performed By: [facility] [address] [place] [address] CLIA#:[id number] Dr. Antonio Penn, Skoog Machine Operator Performed By: #### C 406, C45 #### [facility] [address] [place] [address] [id number] 01-11-2022 HbA1c (Bld) [Mass fraction] 8.0 % High <5.7 [facility] Comment on above: Order Comment: Items in this order include: Basic Metabolic Panel, HgbA1C Testing Performed By: [facility] [address] [place] [address] CLIA#:[id number] [address] Antonio Penn, Skoog Machine Operator Result Comment: Refe rence Interval: Normal: below 5.7%. Prediabetes: 5.7% to 6.4%. Diabetes: 6.5% or above. Performed By: #### C 406, C45 #### [facility] [address] [place] [address] MR LUMBAR SPINE WITHOUT CONT [facility] 11-14-2021 MR LUMBAR SPINE WITHOUT CONTRAST EXAMINATION: MR LUMBAR SPINE WITHOUT CONTRAST HISTORY: ORDERING SYSTEM PROVIDED HISTORY: Lumbar radiculopathy, TECHNOLOGIST PROVIDED HISTORY: Illness/Other Reason for exam: Pain Encounter Type: Initial Additional signs and symptoms: ORDERING SYSTEM PROVIDED DIAGNOSIS CODES: M54.16 Lumbar radiculopathy COMPARISON: None. TECHNIQUE: Sagittal T2, sagittal T1, sagittal STIR, axial T2, axial T1 imaging was obtained without any contrast administration. FINDINGS: The last fully formed disc space is presumed to represent L5/S1. There is 6 mm retrolisthesis of L5 on S1. The remainder of lumbar alignment is preserved. The vertebral body heights are grossly preserved. The bone marrow signal is within normal limits. Degenerative disc desiccation is seen at L5-S1. There is also associated disc space height loss. The conus medullaris terminates at L1 disc space level. The conus medullaris demonstrates normal signal and morphology. The paraspinal soft tissues appear symmetric. The abdominal aorta is normal in caliber. No bulky retroperitoneal lymph nodes. The visualized portion of the kidneys demonstrates normal signal intensity. No bulky retroperitoneal lymph nodes. The visualized portion of the liver demonstrates normal signal intensity. The sacroiliac joints are maintained. Degenerative disc disease is described level by level below: L1-L2: No significant thecal sac compression or neural foraminal narrowing. L2-L3: Mild broad-based disc bulge with minimal flattening of the thecal sac. There is no significant neural foraminal narrowing. L3-L4: There is mild disc desiccation at this level. Broad-based disc bulge is causing mild flattening of the thecal sac. The thecal sac at this level measures 8 mm. The disc bulge is extending up to the lateral recess/foramen causing mild to moderate left, mild right-sided neural foraminal narrowing. L4-L5: Broad-based disc bulge extending up to the lateral recess. There is severe thecal sac compression. The thecal sac at this level measures 5.5 mm. There is severe bilateral neural foraminal narrowing on the left and moderate to severe on the right secondary to posterior disc osteophyte complex and severe and ligamentum flavum hypertrophy. L5-S1: Degenerative disc desiccation along with disc space height loss. Broad-based disc bulge is superimposed with tiny right central/paracentral disc protrusion. There is minimal effacement of the ventral thecal sac. The disc protrusion is abutting right descending S1 nerve root. There is [id number] bilateral neural foraminal narrowing secondary to posterior disc osteophyte complex and facet hypertrophy. IMPRESSION: Multilevel degenerative disc disease as described above, most prominent at L4-L5, L5-S1. /barbara Workstation ID: [id number] Dictated by: RODY LANDRY on SatNov 15, 2021 12:53:16 PM EST Transcribed by: CARON PHAM on SatNov 15, 2021 1:04:57 PM EST Finalized by: RODY LANDRY on SatNov 15, 2021 9:31:18 PM EST Normal [facility] Comment on above: Order Comment: PT/FA X Injury/Trauma or Illness?:Illness/Other How long have you had these symptoms (acute/chronic)?:Acute Reason for exam?:Pain Type of Exam?:Initial Additional signs and symptoms?: Basic Metabolic Panelon Anion gap [Moles/Vol] 11.00 mmol/L Normal 8.00-16.00 [facility] Comment on above: Order Comment: Items in this order include: Basic Metabolic Panel , HgbA1C, Testing Performed By: [facility] [address] [place] [address]. [place] [address] Dr. Antonio Penn, Skoog Machine Operator Performed By: #### C 45, C406 #### [facility] [address] [place] [address] Rd [address] [place] [address] B/C Ratio 21.3 Ratio Normal [facility] Comment on above: Order Comment: Items in this order include: Basic Metabolic Panel , HgbA1C, Testing Performed By: [facility] [address] [place] [address]. [place] [address] Dr. Antonio Penn, Skoog Machine Operator Performed By: #### C 45, C406 #### [facility] [address] [place] [address] [address] [place] [address] Calcium [Mass/Vol] 9.9 mg/dL Normal 8.5-10.5 [facility] Comment on above: Order Comment: Items in this order include: Basic Metabolic Panel , HgbA1C, Testing Performed By: [facility] [address] [place] [address]. [place] [address] Dr. Antonio Penn, Skoog Machine Operator Performed By: #### C 45, C406 #### [facility] [address] [place] [address] Chloride [Moles/Vol] 104 mmol/L Normal 98-107 [facility] Comment on above: Order Comment: Items in this order include: Basic Metabolic Panel , HgbA1C, Testing Performed By: [facility] [address] [place] [address]. [place] [address] Dr. Antonio Penn, Skoog Machine Operator Performed By: #### C 45, C406 #### [facility] [address] [place] [address] [address] [place] [address] CO2 [Moles/Vol] 27.0 mmol/L Normal 21.0-32.0 [facility] Comment on above: Order Comment: Items in this order include: Basic Metabolic Panel , HgbA1C, Testing Performed By: [facility] [address] [place] [address]. [place] [address] Dr. Antonio Penn, Skoog Machine Operator Performed By: #### C 45, C406 #### [facility] [address] [place] [address] [address] [place] [address] Creatinine [Mass/Vol] 0.8 mg/dL Normal 0.3-1.4 [facility] Comment on above: Order Comment: Items in this order include: Basic Metabolic Panel , HgbA1C, Testing Performed By: [facility] [address] [place] [address]. [place] [address] Dr. Antonio Penn, Skoog Machine Operator Performed By: #### C 45, C406 #### [facility] [address] [place] [address] GFR 98 mL/min per 1.73 Normal >60 [facility] Comment on above: Order Comment: Items in this order include: Basic Metabolic Panel , HgbA1C, Testing Performed By: [facility] [address] [place] [address]. [place] [address] Dr. Antonio Penn, Skoog Machine Operator Result Comment: The GFR estimate is not adjusted for race. If the patient's race is -Wallisian, the GFR estimate must be multiplied by a factor of 1.21. Performed By: #### C 45, C406 #### [facility] [address] [place] [address] [address] [place] [address] Glucose [Mass/Vol] 143 mg/dL High 74-100 [facility] Comment on above: Order Comment: Items in this order include: Basic Metabolic Panel , HgbA1C, Testing Performed By: [facility] [address] [place] [address]. [place] [address] Dr. Antonio Penn, Skoog Machine Operator Performed By: #### C 45, C406 #### [facility] [address] [place] [address] [place] [address] Potassium [Moles/Vol] 5.0 mmol/L Normal 3.5-5.3 [facility] Comment on above: Order Comment: Items in this order include: Basic Metabolic Panel , HgbA1C, Testing Performed By: [facility] [address] [place] [address]. [place] [address] Dr. Antonio Penn, Skoog Machine Operator Performed By: #### C 45, C406 #### [facility] [address] [place] [address] [place] [address] Sodium [Moles/Vol] 142 mmol/L Normal 135-145 [facility] Comment on above: Order Comment: Items in this order include: Basic Metabolic Panel , HgbA1C, Testing Performed By: [facility] [address] [place] [address]. [place] [address] Dr. Antonio Penn, Skoog Machine Operator Performed By: #### C 45, C406 #### [facility] [address] [place] [address] [address] [place] [address] Urea nitrogen [Mass/Vol] 17 mg/dL Normal 8-24 [facility] Comment on above: Order Comment: Items in this order include: Basic Metabolic Panel , HgbA1C, Testing Performed By: [facility] [address] [place] [address]. [place] [id number] Dr. Antonio Penn, Skoog Machine Operator Performed By: #### C 45, C406 #### [facility] [address] [place] [address] [place] [address] [id number] 05-11-2021 HbA1c (Bld) [Mass fraction] 6.2 % High <5.7 [facility] Comment on above: Order Comment: Items in this order include: Basic Metabolic Panel , HgbA1C, Testing Performed By: [facility] [address] [place] [address]. [place] [id number] Dr. Antonio Penn, Skoog Machine Operator Result Comment: Refe rence Interval: Normal: below 5.7%. Prediabetes: 5.7% to 6.4%. Diabetes: 6.5% or above. Performed By: #### C 45, C406 #### [facility] [address] [place] [address] [place] [address] Basic Metabolic Panelon 01-07 Anion gap [Moles/Vol] 13.00 mmol/L Normal 8.00-16.00 [facility] Comment on above: Order Comment: Items in this order include: Basic Metabolic Panel , PSA, TSH w/ reflex to FT4, Hemogram, , , Testing Performed By: [facility] [address] [place] [address]. [place] [address] Dr. Antonio Penn, Skoog Machine Operator Performed By: #### C 4124, C45, C404, C211 #### [facility] [address] [place] [address] [address] [place] [address] B/C Ratio 20.0 Ratio Normal [facility] Comment on above: Order Comment: Items in this order include: Basic Metabolic Panel , PSA, TSH w/ reflex to FT4, Hemogram, , , Testing Performed By: [facility] [address] [place] [address]. [place] [address] Dr. Antonio Penn, Skoog Machine Operator Performed By: #### C 4124, C45, C404, C211 #### [facility] [address] [place] [address] Calcium [Mass/Vol] 9.6 mg/dL Normal 8.5-10.5 [facility] Comment on above: Order Comment: Items in this order include: Basic Metabolic Panel , PSA, TSH w/ reflex to FT4, Hemogram, , , Testing Performed By: [facility] [address] [place] [address]. [place] [address] Dr. Antonio Penn, Skoog Machine Operator Performed By: #### C 4124, C45, C404, C211 #### [facility] [address] [place] [address] [address] [place] [address] Chloride [Moles/Vol] 101 mmol/L Normal 98-107 [facility] Comment on above: Order Comment: Items in this order include: Basic Metabolic Panel , PSA, TSH w/ reflex to FT4, Hemogram, , , Testing Performed By: [facility] [address] [place] [address]. [place] [address] Dr. Antonio Penn, Skoog Machine Operator Performed By: #### C 4124, C45, C404, C211 #### [facility] [address] [place] [address] [address] [place] [address] CO2 [Moles/Vol] 24.0 mmol/L Normal 21.0-32.0 [facility] Comment on above: Order Comment: Items in this order include: Basic Metabolic Panel , PSA, TSH w/ reflex to FT4, Hemogram, , , Testing Performed By: [facility] [address] [place] [address]. [place] [address] Dr. Antonio Penn, Skoog Machine Operator Performed By: #### C 4124, C45, C404, C211 #### [facility] [address] [place] [address] Creatinine [Mass/Vol] 0.7 mg/dL Normal 0.3-1.4 [facility] Comment on above: Order Comment: Items in this order include: Basic Metabolic Panel , PSA, TSH w/ reflex to FT4, Hemogram, , , Testing Performed By: [facility] [address] [place] [address]. [place] [address] Dr. Antonio Penn, Skoog Machine Operator Performed By: #### C 4124, C45, C404, C211 #### [facility] [address] [place] [address] [address] [place] [address] GFR 115 mL/min per 1.73 Normal >60 [facility] Comment on above: Order Comment: Items in this order include: Basic Metabolic Panel , PSA, TSH w/ reflex to FT4, Hemogram, , , Testing Performed By: [facility] [address] [place] [address]. [place] [id number] Dr. Antonio Penn, Skoog Machine Operator Result Comment: The GFR estimate is not adjusted for race. If the patient's race is -Wallisian, the GFR estimate must be multiplied by a factor of 1.21. Performed By: #### C 4124, C45, C404, C211 #### [facility] [address] [place] [address] [address] [place] [address] Glucose [Mass/Vol] 170 mg/dL High 74-100 [facility] Comment on above: Order Comment: Items in this order include: Basic Metabolic Panel , PSA, TSH w/ reflex to FT4, Hemogram, , , Testing Performed By: [facility] [address] [place] [address]. [place] [address] Dr. Antonio Penn, Skoog Machine Operator Performed By: #### C 4124, C45, C404, C211 #### [facility] [address] [place] [address] [address] [place] [address] Potassium [Moles/Vol] 4.2 mmol/L Normal 3.5-5.3 [facility] Comment on above: Order Comment: Items in this order include: Basic Metabolic Panel , PSA, TSH w/ reflex to FT4, Hemogram, , , Testing Performed By: [facility] [address] [place] [address]. [place] [address] Dr. Antonio Penn, Skoog Machine Operator Performed By: #### C 4124, C45, C404, C211 #### [facility] [address] [place] [address] Sodium [Moles/Vol] 138 mmol/L Normal 135-145 [facility] Comment on above: Order Comment: Items in this order include: Basic Metabolic Panel , PSA, TSH w/ reflex to FT4, Hemogram, , , Testing Performed By: [facility] [address] [place] [address] Dr. Antonio Penn, Skoog Machine Operator Performed By: #### C 4124, C45, C404, C211 #### [facility] [address] [place] [address] [address] [place] [address] Urea nitrogen [Mass/Vol] 14 mg/dL Normal 8-24 [facility] Comment on above: Order Comment: Items in this order include: Basic Metabolic Panel , PSA, TSH w/ reflex to FT4, Hemogram, , , Testing Performed By: [facility] [address] [place] [address] [address] Antonio Penn, Skoog Machine Operator Performed By: #### C 4124, C45, C404, C211 #### [facility] [address] [place] [address] [place] [address] ECG 12-LEADOrdered By: Michaela Lorenzana on 01-23-2021 [address] [facility] P [place] [facility] P-R Interval [facility] Q-T Interval [facility] Q-T Interval (corrected) [facility] QRS Duration [facility] QTC Calculation (Bezet) [facility] R [place] [facility] T [place] [facility] Ventricular Rate [facility] Hemogramon 01-23-2021 Erythrocyte distribution width (RBC) [Ratio] 12.6 % Normal 11.5-15.5 [facility] Comment on above: Order Comment: Items in this order include: Basic Metabolic Panel , PSA, TSH w/ reflex to FT4, Hemogram, , , Testing Performed By: [facility] [address] [place] [id number] [address] Antonio Penn, Skoog Machine Operator Performed By: #### C 4124, C45, C404, C211 #### [facility] [address] [facility] [address] [place] [address] Hematocrit (Bld) [Volume fraction] 46.1 % Normal 42.0-52.0 [facility] Comment on above: Order Comment: Items in this order include: Basic Metabolic Panel , PSA, TSH w/ reflex to FT4, Hemogram, , , Testing Performed By: [facility] [address] [place] [address]. [place] [address] Dr. Antonio Penn, Skoog Machine Operator Performed By: #### C 4124, C45, C404, C211 #### [facility] [address] [place] [address] [address] [place] [address] Hemoglobin (Bld) [Mass/Vol] 15.6 g/dL Normal 13.5-18.0 [facility] Comment on above: Order Comment: Items in this order include: Basic Metabolic Panel , PSA, TSH w/ reflex to FT4, Hemogram, , , Testing Performed By: [facility] [address] [place] [address]. [place] [address] Dr. Antonio Penn, Skoog Machine Operator Performed By: #### C 4124, C45, C404, C211 #### [facility] [address] [place] [address] [address] [place] [address] MCH (RBC) [Entitic mass] 31.3 pg High 27.0-31.0 [facility] Comment on above: Order Comment: Items in this order include: Basic Metabolic Panel , PSA, TSH w/ reflex to FT4, Hemogram, , , Testing Performed By: [facility] [address] [place] [address]. [place] [address] Dr. Antonio Penn, Skoog Machine Operator Performed By: #### C 4124, C45, C404, C211 #### [facility] [address] [place] [address] [address] [place] [address] MCHC (RBC) [Mass/Vol] 33.8 g/dL Normal 32.0-36.0 [facility] Comment on above: Order Comment: Items in this order include: Basic Metabolic Panel , PSA, TSH w/ reflex to FT4, Hemogram, , , Testing Performed By: [facility] [address] [place] [address]. [place] [address] Dr. Antonio Penn, Skoog Machine Operator Performed By: #### C 4124, C45, C404, C211 #### [facility] [address] [place] [address] [address] [place] [address] MCV (RBC) [Entitic vol] 92.6 fL Normal 78.0-100.0 [facility] Comment on above: Order Comment: Items in this order include: Basic Metabolic Panel , PSA, TSH w/ reflex to FT4, Hemogram, , , Testing Performed By: [facility] [address] [place] [address] Dr. Antonio Penn, Skoog Machine Operator Performed By: #### C 4124, C45, C404, C211 #### [facility] [address] [place] [address] [address] [place] [address] Platelet mean volume (Bld) [Entitic vol] 10.9 fL Normal 8.9-12.6 [facility] Comment on above: Order Comment: Items in this order include: Basic Metabolic Panel , PSA, TSH w/ reflex to FT4, Hemogram, , , Testing Performed By: [facility] [address] [place] [address]. [place] [address] Dr. Antonio Penn, Skoog Machine Operator Performed By: #### C 4124, C45, C404, C211 #### [facility] [address] [place] [address] [address] [place] [address] PLT 267 K CUMM Normal 130-400 [facility] Comment on above: Order Comment: Items in this order include: Basic Metabolic Panel , PSA, TSH w/ reflex to FT4, Hemogram, , , Testing Performed By: [facility] [facility] [address] [place] [address]. [place] [address] Dr. Antonio Penn, Skoog Machine Operator Performed By: #### C 4124, C45, C404, C211 #### [facility] [address] [facility] [place] [address] RBC 4.98 M CUMM Normal 4.20-5.80 [facility] Comment on above: Order Comment: Items in this order include: Basic Metabolic Panel , PSA, TSH w/ reflex to FT4, Hemogram, , , Testing Performed By: [facility] [address] [place] [address]. [place] [address] Dr. Antonio Penn, Skoog Machine Operator Performed By: #### C 4124, C45, C404, C211 #### [facility] [address] [place] [address] [place] [address] WBC 8.5 K CUMM Normal 3.8-10.6 [facility] Comment on above: Order Comment: Items in this order include: Basic Metabolic Panel , PSA, TSH w/ reflex to FT4, Hemogram, , , Testing Performed By: [facility] [address] [place] [address]. [place] [address] Dr. Antonio Penn, Skoog Machine Operator Performed By: #### C 4124, C45, C404, C211 #### [facility] [address] [place] [address] [place] [address] TSH w/ reflex to FT4on 01-23 TSH 2.27 MIU/mL Normal 0.50-6.00 [facility] Comment on above: Order Comment: Items in this order include: Basic Metabolic Panel , PSA, TSH w/ reflex to FT4, Hemogram, , , Testing Performed By: [facility] [address] [place] [address]. [place] [address] Dr. Antonio Penn, Skoog Machine Operator Performed By: #### C 4124, C45, C404, C211 #### [facility] [address] [place] [address] [place] [address] POC Creatinineon 03-23-2020 Creatinine [Mass/Vol] 0.8 mg/dL 0.5 - 1.3 mg/dL [facility] Interpretation and review of laboratory results Normal [facility] XR MR Eyeon 03-23-2020 FINDINGS/ There are no metallic density foreign bodies identified projecting over the orbits as a contraindication to MRI. Workstation ID: [id number] [facility] EXAMINATION: XR MR EYE HISTORY: ORDERING SYSTEM PROVIDED HISTORY: mri clearance, TECHNOLOGIST PROVIDED HISTORY: Illness/Other Reason for exam: MRI clear Cancer History: no Surgery, RadiationHistory: no Encounter Type: Initial Additional signs and symptoms: unknown ORDERING SYSTEM PROVIDED DIAGNOSIS CODES: Z13.89 Encounter for imaging to screen for metal prior to MRI COMPARISON: None available. [facility] Interface, Rad In Janey Speechq - 03/23/2020 5:11 PM EDT EXAMINATION: XR MR EYE HISTORY: ORDERING SYSTEM PROVIDED HISTORY: mri clearance, TECHNOLOGIST PROVIDED HISTORY: Illness/Other Reason for exam: MRI clear Cancer History: no Surgery, RadiationHistory: no Encounter Type: Initial Additional signs and symptoms: unknown ORDERING SYSTEM PROVIDED DIAGNOSIS CODES: Z13.89 Encounter for imaging to screen for metal prior to MRI COMPARISON: None available. IMPRESSION: FINDINGS/ There are no metallic density foreign bodies identified projecting over the orbits as a contraindication to MRI. Workstation ID: [id number] [facility] ECG 12-LEADon 04-20-2019 [address] [facility] P [place] [facility] P-R Interval [facility] Q-T Interval [facility] Q-T Interval (corrected) [facility] QRS Duration [facility] QTC Calculation (Bezet) [facility] R [place] [facility] T [place] [facility] Ventricular Rate [facility] XR ABDOMEN 1 VIEWon 03-31-20 19 A left proximal ureteral calculus seen on recent CT is not visible. No definite urinary calculi are visible by plain radiograph. SHEYLA/lawrence Workstation ID: [id number] [facility] EXAMINATION: XR ABDOMEN /KUB/FLAT PLATE/1 VIEW HISTORY: ORDERING SYSTEM PROVIDED HISTORY: Calculus of kidney, TECHNOLOGIST PROVIDED HISTORY: Illness/Other Reason for exam: Left sided K.S. F/U Cancer History: no Surgery, RadiationHistory: no Encounter Type: Subsequent/Follow-up Additional signs and symptoms: no ORDERING SYSTEM PROVIDED DIAGNOSIS CODES: N20.0 Calculus of kidney Renal calculus. COMPARISON: CT of the abdomen and pelvis 03/26/2019. FINDINGS: Supine views of the abdomen performed. On the comparison CT, there was a left proximal ureteral calculus measuring approximately 6 mm, just below the ureteropelvic junction. This is not definitely seen on the current radiograph. There is an osteophyte at the L4 superior endplate, also shown on CT. Small pelvic phleboliths are noted. Bowel gas pattern is nonobstructive. [facility] Timothy, Jacky In Janey Powerq - 03/31/2019 5:07 PM EDT EXAMINATION: XR ABDOMEN /KUB/FLAT PLATE/1 VIEW HISTORY: ORDERING SYSTEM PROVIDED HISTORY: Calculus of kidney, TECHNOLOGIST PROVIDED HISTORY: Illness/Other Reason for exam: Left sided K.S. F/U Cancer History: no Surgery, RadiationHistory: no Encounter Type: Subsequent/Follow-up Additional signs and symptoms: no ORDERING SYSTEM PROVIDED DIAGNOSIS CODES: N20.0 Calculus of kidney Renal calculus. COMPARISON: CT of the abdomen and pelvis 03/26/2019. FINDINGS: Supine views of the abdomen performed. On the comparison CT, there was a left proximal ureteral calculus measuring approximately 6 mm, just below the ureteropelvic junction. This is not definitely seen on the current radiograph. There is an osteophyte at the L4 superior endplate, also shown on CT. Small pelvic phleboliths are noted. Bowel gas pattern is nonobstructive. IMPRESSION: A left proximal ureteral calculus seen on recent CT is not visible. No definite urinary calculi are visible by plain radiograph. [employer] Workstation ID: [id number] [facility] Vital Signs Date Time Vital Sign Value Performing Clinician Alexa norwood 09-15-2024 11:49-0500 Diastolic blood pressure 80 mm[Hg] Cheyenne Lorenzana MD Work Phone: [facility] 09-15-2024 11:49-0500 Heart rate 75 /min Cheyenne Lorenzana MD Work Phone: [facility] 09-15-2024 11:49-0500 Systolic blood pressure 132 mm[Hg] Cheyenne Lorenzana MD Work Phone: [facility] 09-15-2024 11:47-0500 Body height 170.2 cm Cheyenne Lorenzana MD Work Phone: [facility] 09-15-2024 11:47-0500 Body mass index (BMI) [Ratio] 33.8 kg/m2 Cheyenne Lorenzana MD Work Phone: [facility] 09-15-2024 11:47-0500 Body weight 97.89 kg Cheyenne Lorenzana MD Work Phone: [facility] 08-27-2023 11:03-0500 Diastolic blood pressure 91 mm[Hg] Cheyenne Lorenzana MD Work Phone: [facility] 08-27-2023 11:03-0500 Heart rate 83 /min Cheyenne Lorenzana MD Work Phone: [facility] 08-27-2023 11:03-0500 Systolic blood pressure 157 mm[Hg] Cheyenne Lorenzana MD Work Phone: [facility] 08-27-2023 11:01-0500 Body height 170.2 cm Cheyenne Lorenzana MD Work Phone: [facility] 08-27-2023 11:01-0500 Body mass index (BMI) [Ratio] 34.46 kg/m2 Cheyenne Lorenzana MD Work Phone: [facility] 08-27-2023 11:01-0500 Body weight 99.79 kg Cheyenne Lorenzana MD Work Phone: [facility] 08-28-2022 11:04-0500 Diastolic blood pressure 84 mm[Hg] Cheyenne Lorenzana MD Work Phone: [facility] 08-28-2022 11:04-0500 Heart rate 77 /min Cheyenne Lorenzana MD Work Phone: [facility] 08-28-2022 11:04-0500 Systolic blood pressure 135 mm[Hg] Cheyenne Lorenzana MD Work Phone: [facility] 08-28-2022 11:03-0500 Body height 170.2 cm Cheyenne Lorenzana MD Work Phone: [facility] 08-28-2022 11:03-0500 Body mass index (BMI) [Ratio] 35.41 kg/m2 Cheyenne Lorenzana MD Work Phone: [facility] 08-28-2022 11:03-0500 Body weight 102.56 kg Cheyenne Lorenzana MD Work Phone: [facility] 07-27-2022 11:25-0500 Body height 170.2 cm Jass Syed Work Phone: [facility] 07-27-2022 11:25-0500 Body mass index (BMI) [Ratio] 36.02 kg/m2 Jass Espino MD Work Phone: [facility] 07-27-2022 11:25-0500 Body weight 104.33 kg Jass Syed Work Phone: [facility] 01-23-2021 09:31-0400 Diastolic blood pressure 89 mm[Hg] Cheyenen Lorenzana MD Work Phone: [facility] 01-23-2021 09:31-0400 Heart rate 84 /min Cheyenne Lorenzana MD Work Phone: [facility] 01-23-2021 09:31-0400 Systolic blood pressure 148 mm[Hg] Cheyenne Lorenzana MD Work Phone: [facility] 01-23-2021 09:21-0400 Body height 170.2 cm Cheyenne Lorenzana MD Work Phone: [facility] 01-23-2021 09:21-0400 Body mass index (BMI) [Ratio] 36.16 kg/m2 Cheyenne Lorenzana MD Work Phone: [facility] 01-23-2021 09:21-0400 Body weight 104.74 kg Cheyenne Lorenzana MD Work Phone: [facility] 03-23-2020 16:36-0400 BMI (Body Mass Index) 36.02 kg/m2 Collins Barakatrick [facility] 03-23-2020 16:36-0400 Body weight 104.33 kg Collins Barakatrick [facility] 03-23-2020 16:36-0400 Height 170.2 cm Collins Marco [facility] 04-20-2019 09:47-0400 BP Diastolic 82 mm[Hg] Cheyenne Lorenzana [facility] 04-20-2019 09:47-0400 BP Systolic 131 mm[Hg] Cheyenne Lorenzana [facility] 04-20-2019 09:47-0400 Pulse (Heart Rate) 80 /min Cheyenne Juarezjerilyn [facility] Encounters Encounter Date Encounter Type Care Provider Facility Start: 04-20-2025 ambulatory Quinten Evans Facility :[facility] Start: 04-05-2025 ambulatory Mary TOM Facilit y:[facility] Start: 03-30-2025 End: 03-30-2025 ambulatory Quinten Evans Facility:[facility] Start: 03-29-2025 End: 03-29-2025 ambulatory Mitchell Sheth Facility:[facility] Start: 02-11-2025 End: 02-11-2025 ambulatory Mary TOM Facility:[facility] Start: 02-11-2025 End: 02-11-2025 ambulatory Mary TOM Facility:[facility] Start: 01-27-2025 End: 01-27-2025 ambulatory Mary TOM Facility:[facility] Start: 01-27-2025 End: 01-27-2025 ambulatory Mary TOM Facility:[facility] Start: 01-19-2025 ambulatory MACHO LOMBARDI [facility] Start: 12-31-2024 End: 12-31-2024 ambulatory Mary TOM Facility:[facility] Start: 12-18-2024 End: 12-18-2024 Patient encounter procedure Mary Navarro Work Phone: Podiatry Comment on above: Diabetic polyneuropa thy associated with type 2 diabetes mellitus (HCC) (Primary Dx); Ingrowing toenail; Onychocryptosis; Pain in toe of left foot; Pain in toe of right foot Start: 12-18-2024 End: 12-18-2024 ambulatory SELF Facility:[facility] Start: 12-14-2024 ambulatory CHEYENNE LORENZANA [facility] Start: 12-08-2024 ambulatory Mary TOM Facilit y:[facility] Start: 12-03-2024 ambulatory Cassie Neves Facility: [facility] Start: 11-26-2024 End: 11-26-2024 ambulatory ROSITA CUEVAS Facility:[facility] Start: 11-20-2024 ambulatory NOT RECORDED PHYSICIAN Facility:[facility] Start: 10-16-2024 ambulatory Vero Ryder Facility:[facility] Start: 10-16-2024 End: 11-25-2024 Evaluation and management of inpatient Vero Ryder Facility:[facility] Start: 10-15-2024 End: 10-16-2024 Evaluation and management of inpatient Viet Boyce Facility:[facility] Start: 10-15-2024 ambulatory Max Hill Facility:[facility] Start: 10-14-2024 ambulatory Rex Mccollum [facility] Start: 09-15-2024 End: 09-15-2024 Office outpatient visit 15 minutes Cheyenne Lorenzana MD Work Phone: [facility] Comment on above: Type 2 diabetes raul itus without complication, without long- term current use of insulin (HCC) (Primary Dx); CAD in tetlin artery; Hyperlipidemia, unspecified hyperlipidemia type Start: 09-15-2024 End: 09-16-2024 ambulatory MACHO LOMBARDI [facility] Ambulatory Start: 09-14-2024 End: 09-14-2024 Orders Only Cheyenne Lorenzana MD Work Phone: [facility] Comment on above: CAD in tetlin artery (Primary Dx) Start: 08-24-2024 End: 08-24-2024 Refill Cheyenne Lorenzana MD Work Phone: [facility] Comment on above: Medication Refill Start: 08-10-2024 End: 08-10-2024 Orders Only Cheyenne Lorenzana MD Work Phone: [facility] Comment on above: CAD in tetlin artery (Primary Dx) Start: 07-24-2024 ambulatory MACHO LOMBARDI [facility]ulatory Start: 2024 ambulatory MACHO LOMBARDI [facility] Start: 07-12-2024 ambulatory MACHO LOMBARDI [facility] Start: 07-06-2024 End: 07-06-2024 Refill Cheyenne Lorenzana MD Work Phone: [facility] Comment on above: lipid results Start: 09-04-2023 End: 09-05-2023 [facility] Start: 08-27-2023 End: 08-27-2023 Office outpatient visit 10 minutes Cheyenne Lorenzana MD Work Phone: [facility] Comment on above: Bilateral hip pain ( Primary Dx); CAD in tetlin artery; Hypertension, unspecified type; Sexual dysfunction; Hyperlipidemia, unspecified hyperlipidemia type; Type 2 diabetes mellitus without complication, without long-term current use of insulin (HCC) Start: 08-23-2023 End: 08-27-2023 [facility] Start: 07-30-2023 Orders Only Cheyenne Lorenzana MD Work Phone: [facility] Comment on above: CAD in tetlin artery (Primary Dx) Start: 07-12-2023 Orders Only Cheyenne Lorenzana MD Work Phone: [facility] Comment on above: CAD in tetlin artery (Primary Dx); Hyperlipidemia, unspecified hyperlipidemia type; Type 2 diabetes mellitus without complication, without long-term current use of insulin ([facility]) Start: 03-05-2023 Refill Cheyenne Lorenzana MD Work Phone: [facility] Comment on above: blood work results Start: 02-28-2023 End: 03-04-2023 [facility] Start: 08-28-2022 End: 08-28-2022 Office outpatient visit 10 minutes Cheyenne Lorenzana MD Work Phone: [facility] Comment on above: Hyperlipidemia, unsp ecified hyperlipidemia type (Primary Dx); CAD in tetlin artery; Type 2 diabetes mellitus without complication, without long-term current use of insulin (HCC) Start: 07-30-2022 Orders Only Aracely Chaparro MA [facility] Comment on above: Low back pain, unspe cified back pain laterality, unspecified chronicity, unspecified whether sciatica present (Primary Dx) Start: 07-27-2022 End: 07-27-2022 Office outpatient new 30 minutes Jass Espino MD Work Phone: [facility] Comment on above: Spinal stenosis, lum bar region, with neurogenic claudication (Primary Dx) Start: 02-21-2022 Refill Cheyenne Lorenzana MD Work Phone: [facility] Comment on above: Medication Refill Start: 11-14-2021 End: 11-15-2021 ambulatory MACHO LOMBARDI [facility] Start: 07-07-2021 Orders Only Cheyenne Lorenzana MD Work Phone: [facility] Comment on above: CAD in tetlin artery (Primary Dx) Start: 01-23-2021 End: 01-23-2021 Office outpatient visit 10 minutes Cheyenne Lorenzana MD Work Phone: [facility] Comment on above: CAD in tetlin artery Start: 01-12-2021 End: 01-12-2021 Orders Only Cheyenne Lorenzana MD Work Phone: [facility] Comment on above: CAD in tetlin artery (Primary Dx) Start: 10-18-2020 End: 10-18-2020 Patient encounter procedure Juliann Jones Work Phone: [facility] Start: 09-20-2020 End: 09-20-2020 Patient encounter procedure Juliann Jones Work Phone: [facility] Start: 09-16-2020 End: 09-16-2020 Orders Only Juliann Jones Work Phone: [facility] Start: 07-21-2020 End: 07-21-2020 Patient encounter procedure MACHOIVIS GUTIERREZ BREE [facility] Start: 07-21-2020 End: 07-21-2020 Nursing evaluation of patient and report Iveth Schedule [facility] Start: 03-23-2020 End: 03-23-2020 Subsequent hospital visit by physician Collins Lara Work Phone: [facility] Comment on above: Encounter for kiarrain g to screen for metal prior to MRI Fourth cranial nerve palsy, right Start: 05-05-2019 End: 05-05-2019 Subsequent hospital visit by physician Matt Reyes Work Phone: [facility] Comment on above: Calculus of kidney; Calculus of ureter Start: 04-20-2019 End: 04-20-2019 Office outpatient visit 10 minutes Cheyenne Lorenzana Work Phone: [facility] Comment on above: Elevated triglycerid es with high cholesterol (Primary Dx); CAD in tetlin artery; Elevated CPK Start: 03-31-2019 End: 03-31-2019 Subsequent hospital visit by physician Matt Reyes Work Phone: [facility] Comment on above: Calculus of kidney Procedures Date Procedure Procedure Detail Performing Clinician Start: 09-15-2024 Ecg routine ecg w/le ast 12 lds w/i&r Cheyenne Lorenzana MD Work Phone: Start: 09-14-2024 Lipid 1996 panel - S soto or Plasma Mary Navarro Work Phone: Start: 08-27-2023 Ecg routine ecg w/le ast 12 lds w/i&r Cheyenne Lorenzana MD Work Phone: Start: 08-28-2022 Ecg routine ecg w/le ast 12 lds w/i&r Cheyenne Lorenzana MD Work Phone: Start: 01-23-2021 PSA screening Comment on above: Order Comment: Items in this order include: Basic Metabolic Panel , PSA, TSH w/ reflex to FT4, Hemogram, , , Testing Performed By: [facility] [address] [place] [place] [address] Dr. Antonio Penn, Skoog Machine Operator Result Comment: This test was performed using the [employer] ST AIA-PACK PA in a two-site immunoenzymometric assay. Results from the ST AIA-PACK PA assay should not be interpreted as being definitive for the prescence or absence of Prostate cancer. Values obtained from different methods cannot be used interchangeably Performed By: #### C 4124, C45, C404, C211 #### [facility] [address] [place] [address] Start: 01-23-2021 Ecg routine ecg w/le ast 12 lds w/i&r Cheyenne Lorenzana MD Work Phone: Start: 04-14-2020 Ophthalmic examinati on and evaluation Cheyenne Lorenzana MD Work Phone: Start: 03-23-2020 Creatinine [Mass/vol ume] in Blood Collins Lara Work Phone: Start: 03-23-2020 Radiologic examinati on eye detect foreign body Sanjeev Gallo Work Phone: Start: 04-20-2019 12 lead ECG Cheyenne Lorenzana Work Phone: Start: 03-31-2019 Radiography of [id number] Matt Naylor Amy Work Phone: Start: 12-09-2018 Ophthalmic examinati on and evaluation Cheyenne Lorenzana MD Work Phone: Start: 10-15-2017 Microalbumin [Mass/v olume] in Urine by Test strip Cheyenne Lorenzana MD Work Phone: Plan of Treatment Date Care Activity Detail Author Start: 09-14-2029 Lipid panel Lipid Screening [facility] Start: 09-14-2027 Diabetes Screening Diabetes Screenin g [facility] Start: 10-19-2025 End: 10-19-2025 Patient encounter procedure 10/19/2025 11:00 AM EST Office Visit [facility] [address] [place] [address] Cheyenne Lorenzana MD [address] [place] [address] [facility] Start: 06-29-2025 End: 06-29-2025 Patient encounter procedure 06/29/2025 10:00 AM EDT Office Visit Podiatry [address] [place], [place] [address] Mary Navarro [address] [place] [address] 6 mo follow up Podiatry Comment on above: 6 mo follow up Start: 03-15-2025 End: 09-15-2025 Hemoglobin A1c/Hemoglobin.total in Blood Hemoglobin A1c Lab Routine Type 2 diabetes mellitus without complication, without long-term current use of insulin (HCC) Expected: 03/15/2025 (Approximate), Expires: 09/15/[address] [facility] Comment on above: Expected: 03/15/2025 (Approximate), Expires: 09/15/2025 Start: 03-15-2025 End: 09-15-2025 Lipid 1996 panel - Serum or Plasma Lipid Panel Lab Routine Hyperlipidemia, unspecified hyperlipidemia type Expected: 03/15/2025 (Approximate), Expires: 09/15/[address] [facility] Work Phone: Comment on above: Expected: 03/15/2025 (Approximate), Expires: 09/15/2025 Start: 01-31-2025 Tetanus vaccination [facility] Start: 01-31-2025 Urine microalbumin profile DTaP,Tdap,Td Vaccine (2 - Td or Tdap) [facility] Start: 12-13-2024 Hemoglobin A1c measurement A1C [facility] Start: 10-03-2024 Hemoglobin A1c measurement A1C [facility] Start: 09-15-2024 End: 09-15-2024 Patient encounter procedure 09/15/2024 11:40 AM EST Office Visit [facility] [address] [place] [address] Cheyenne Lorenzana MD [address] [place] [address] [facility] Start: 09-14-2024 End: 09-14-2025 Hemoglobin A1c/Hemoglobin.total in Blood Hemoglobin A1c Lab Routine CAD in tetlin artery Expected: 09/14/2024 (Approximate), Expires: 09/14/[address] [facility] Work Phone: Comment on above: Expected: 09/14/2024 (Approximate), Expires: 09/14/2025 Start: 09-05-2024 End: 07-06-2025 Lipid 1996 panel - Serum or Plasma Lipid Panel Lab Routine Hyperlipidemia, unspecified hyperlipidemia type Expected: 09/05/2024 (Approximate), Expires: 07/06/[address] [facility] Work Phone: Comment on above: Expected: 09/05/2024 (Approximate), Expires: 07/06/2025 Start: 08-27-2024 End: 08-27-2024 Hemoglobin A1c/Hemoglobin.total in Blood Hemoglobin A1c Lab Routine Type 2 diabetes mellitus without complication, without long-term current use of insulin (HCC) Expected: 08/27/2024 (Approximate), Expires: 08/27/[address] [facility] Comment on above: Expected: 08/27/2024 (Approximate), Expires: 08/27/2024 Start: 08-27-2024 History and physical examination, annual for health maintenance Wellness Visit [facility] Start: 08-27-2024 End: 08-27-2024 Lipid 1996 panel - Serum or Plasma Lipid Panel Lab Routine Hyperlipidemia, unspecified hyperlipidemia type Expected: 08/27/2024 (Approximate), Expires: 08/27/[address] [facility] Comment on above: Expected: 08/27/2024 (Approximate), Expires: 08/27/2024 Start: 08-25-2024 End: 08-25-2024 Patient encounter procedure 08/25/2024 11:40 AM EST Office Visit [facility] [address] [place] [address] Cheyenne Lorenzana MD [address] [address] [place] [address] [facility] Start: 05-10-2024 COVID-19 Vaccine ( season) COVID-19 Vaccine ( season) [facility] Start: 05-10-2024 Influenza vaccination Influenza Vacc ine (#1) [facility] Start: 11-22-2023 Hemoglobin A1c measurement A1C [facility] Start: 08-30-2023 Hemoglobin A1c measurement A1C [facility] Start: 08-28-2023 End: 08-27-2024 CT Abdomen and Pelvis WO and W contrast IV CT Abdomen Pelvis With And Without Contrast Imaging Routine Sexual dysfunction Expected: 08/28/2023 (Approximate), Expires: 08/27/[address] [facility] Work Phone: Comment on above: Expected: 08/28/2023 (Approximate), Expires: 08/27/2024 Start: 08-27-2023 End: 08-27-2023 Patient encounter procedure [facility] Start: 07-12-2023 End: 07-12-2024 Hemoglobin A1c/Hemoglobin.total in Blood Hemoglobin A1c Lab Routine Type 2 diabetes mellitus without complication, without long-term current use of insulin (HCC) Expected: 07/12/2023, Expires: 07/12/[address] [facility] Comment on above: Expected: 07/12/2023 , Expires: 07/12/2024 Start: 07-12-2023 End: 07-12-2024 Lipid 1996 panel - Serum or Plasma Lipid panel Lab Routine Hyperlipidemia, unspecified hyperlipidemia type Expected: 07/12/2023, Expires: 07/12/[address] [facility] Work Phone: Comment on above: Expected: 07/12/2023 , Expires: 07/12/2024 Start: 05-10-2023 COVID-19 Vaccine ( season) COVID-19 Vaccine () [facility] Start: 05-10-2023 Influenza vaccination Sequenti al Influenza Vaccine (#1) [facility] Start: 02-26-2023 End: 08-28-2023 Creatine kinase [Enzymatic activity/volume] in Serum or Plasma CPK Lab Routine Hyperlipidemia, unspecified hyperlipidemia type Expected: 02/26/2023 (Approximate), Expires: 08/28/[address] [facility] Comment on above: Expected: 02/26/2023 (Approximate), Expires: 08/28/2023 Start: 02-26-2023 End: 08-28-2023 Hemoglobin A1c/Hemoglobin.total in Blood Hemoglobin A1c Lab Routine Type 2 diabetes mellitus without complication, without long-term current use of insulin (HCC) Expected: 02/26/2023 (Approximate), Expires: 08/28/[address] [facility] Comment on above: Expected: 02/26/2023 (Approximate), Expires: 08/28/2023 Start: 02-26-2023 End: 08-28-2023 Lipid 1996 panel - Serum or Plasma Lipid Panel Lab Routine Hyperlipidemia, unspecified hyperlipidemia type Expected: 02/26/2023 (Approximate), Expires: 08/28/[address] [facility] Work Phone: Comment on above: Expected: 02/26/2023 (Approximate), Expires: 08/28/2023 Start: 11-22-2022 Hemoglobin A1c measurement A1C [facility] Start: 08-28-2022 End: 08-28-2022 Patient encounter procedure 08/28/2022 Office Visit Cardiology Cheyenne Lorenzana MD [address] [facility] [address] [place] [address] [facility] Start: 2022 Hemoglobin A1c measurement A1C [facility] Start: 05-10-2022 Influenza vaccination Sequenti al Influenza Vaccine (#1) [facility] Start: 04-13-2022 Hemoglobin A1c measurement A1C [facility] Start: 12-16-2021 COVID-19 Vaccine (4 - Booster for Moderna series) COVID-19 Vaccine (4 - Booster for Moderna series) [facility] Start: 10-12-2021 COVID-19 Vaccine (4 - Booster for Moderna series) COVID-19 Vaccine (4 - Booster for Moderna series) [facility] Start: 10-12-2021 COVID-19 Vaccine (4 - Moderna series) COVID-19 Vaccine (4 - Moderna series) [facility] Start: 07-24-2021 End: 07-24-2021 Patient encounter procedure [facility] Start: 07-21-2021 Hemoglobin A1c measurement A1C [facility] Start: 05-10-2021 Influenza vaccination Sequenti al Influenza Vaccine (#1) [facility] Start: 04-14-2021 Glaucoma screening [facility] Start: 04-14-2021 Ophthalmic examinati on and evaluation Ophthalmology Exam [facility] Start: 02-27-2021 End: 01-23-2022 Creatine kinase [Enzymatic activity/volume] in Serum or Plasma CPK Lab Routine CAD in tetlin artery Expected: 02/27/2021 (Approximate), Expires: 01/23/[address] [facility] Comment on above: Expected: 02/27/2021 (Approximate), Expires: 01/23/2022 Start: 02-27-2021 End: 01-23-2022 Hepatic function 2000 panel - Serum or Plasma Hepatic function panel Lab Routine CAD in tetlin artery Expected: 02/27/2021, Expires: 01/23/[address] [facility] Comment on above: Expected: 02/27/2021 , Expires: 01/23/2022 Start: 02-27-2021 End: 01-23-2022 Lipid 1996 panel - Serum or Plasma Lipid panel Lab Routine CAD in tetlin artery Expected: 02/27/2021, Expires: 01/23/[address] [facility] Comment on above: Expected: 02/27/2021 , Expires: 01/23/2022 Start: 01-23-2021 End: 01-23-2021 Patient encounter procedure 01/23/2021 Office Visit Cardiology Cheyenne Lorenzana MD [address] [facility] [address] [place] [address] [phone] [facility] Start: 10-18-2020 End: 10-18-2020 Immunization 10/18/2020 Immunization Primary Care Juliann Jones MD [address] [facility] [address] [place] [address] [phone] [facility] Start: 10-18-2020 COVID-19 Vaccine (Moderna) (#2) COVID-19 Vaccine (Moderna) (#2) [facility] Start: 2020 Respiratory Syncytia l Virus Immunization: Risk, 60-74 Risk, or 75+ (1 - Risk 60-74 years 1-dose series) Respiratory Syncytial Virus Immunization: Risk, 60-74 Risk, or 75+ (1 - Risk 60-74 years 1-dose series) [facility] Start: 2020 RSV Vaccine (1 - Ris k 60-74 years 1-dose series) RSV Vaccine (1 - Risk 60-74 years 1-dose series) [facility] Start: 06-26-2020 History and physical examination, annual for health maintenance Wellness Visit [facility] Start: 05-10-2020 Influenza vaccinatio n given Sequential Influenza Vaccine (#1) [facility] Start: 12-19-2019 Hemoglobin A1c measurement A1C [facility] Start: 12-10-2019 Ophthalmic examinati on and evaluation Ophthalmology Exam [facility] Start: 09-26-2019 Urine screening for protein eGFR Diabetes [facility] Start: 06-04-2019 End: 04-20-2020 CK [Catalytic activity/Vol] CPK Lab Routine Elevated triglycerides with high cholesterol Elevated CPK Expected: 06/04/2019, Expires: 04/20/[address] [facility] Comment on above: Expected: 06/04/2019 , Expires: 04/20/2020 Start: 06-04-2019 End: 04-20-2020 Hepatic function 2000 panel - Serum or Plasma Hepatic function panel Lab Routine Elevated triglycerides with high cholesterol Elevated CPK Expected: 06/04/2019, Expires: 04/20/[address] [facility] Comment on above: Expected: 06/04/2019 , Expires: 04/20/2020 Start: 06-04-2019 End: 04-20-2020 Lipid 1996 panel Lipid Panel Lab Routine Elevated triglycerides with high cholesterol Elevated CPK Expected: 06/04/2019, Expires: 04/20/[address] [facility] Comment on above: Expected: 06/04/2019 , Expires: 04/20/2020 Start: 05-10-2019 Influenza vaccinatio n given SEQUENTIAL INFLUENZA VACCINE (#1) [facility] Start: 04-20-2019 End: 04-20-2019 Office Visit 04/20/2019 Office Visit Cardiology Cheyenne Lorenzana MD [address] [facility] [address] [place] [address] [phone] [facility] Start: 10-15-2018 History and physical examination, annual for health maintenance Wellness Visit [facility] Start: 10-15-2018 Microalbumin measurement, urine, quantitative Urine Microalbumin [facility] Start: 08-30-2017 History and physical examination, annual for health maintenance Wellness Visit [facility] Start: 2015 Prostate specific antigen measurement Prostate Cancer Screening Discussion [facility] Start: 2010 Administration of he rpes zoster vaccine Zoster Vaccines (1 of 2) [facility] Start: 2010 Pneumococcal Vaccine : 50+ (1 of 1 - PCV) Pneumococcal Vaccine: 50+ (1 of 1 - PCV) [facility] Start: 2010 Screening for malign ant neoplasm of colon [facility] Start: 2005 Screening for malign ant neoplasm of colon [facility] Start: 1979 Pneumococcal Vaccine : Ped or At-Risk (1 of 2 - PCV) Pneumococcal Vaccine: Ped or At-Risk (1 of 2 - PCV) [facility] Start: 1978 Anxiety Screening Anxiety Screening [facility] Start: 1978 Depression Screening Depression Scre ening [facility] Start: 1978 Hepatitis C antibody , confirmatory test Hepatitis C Screening [facility] Start: 1978 Hepatitis C screening Hepatitis C Sc reening [facility] Start: 1978 HIV screening HIV Screening [facility] Start: 1975 HIV screening HIV Screening [facility] Start: 1972 Adolescent depressio n screening assessment Depression Screening (PHQ9) [facility] Start: 1972 Depression screening using PHQ-9 (Patient Health Questionnaire 9) score [facility] Start: 1970 Diabetic foot examination [facility] Start: 1970 Microalbumin measurement, urine, quantitative Urine Microalbumin [facility] Start: 1970 Ophthalmic examinati on and evaluation Ophthalmology Exam [facility] Start: 1970 Urine screening for protein [facility] Start: 1966 Pneumococcal Vaccine : Ped or At-Risk (1 - PCV) Pneumococcal Vaccine: Ped or At-Risk (1 - PCV) [facility] Start: 1966 Pneumococcal Vaccine : Ped or At-Risk (1 of 2 - PCV) Pneumococcal Vaccine: Ped or At-Risk (1 of 2 - PCV) [facility] Start: 1966 Pneumococcal Vaccine : Ped or At-Risk (1 of 2 - PPSV23) Pneumococcal Vaccine: Ped or At-Risk (1 of 2 - PPSV23) [facility] Start: 1963 History and physical examination, annual for health maintenance Wellness Visit [facility] Start: 1960 Hepatitis C antibody , confirmatory test HEPATITIS C SCREENING [facility] Start: 1960 Prostate specific antigen measurement PSA Level [facility] Start: 1960 Screening for malign ant neoplasm of colon [facility] End: 01-12-2022 12 lead ECG ECG 12 Lead ECG Routine CAD in tetlin artery 1 Occurrences starting 01/12/2021 until 01/12/[address] [facility] Comment on above: 1 Occurrences starti ng 01/12/2021 until 01/12/2022 End: 07-07-2022 12 lead ECG ECG 12 Lead ECG Routine CAD in tetlin artery 1 Occurrences starting 07/07/2021 until 07/07/[address] [facility] Work Phone: Comment on above: 1 Occurrences starti ng 07/07/2021 until 07/07/2022 End: 07-30-2024 12 lead ECG ECG 12 Lead ECG Routine CAD in tetlin artery 1 Occurrences starting 07/30/2023 until 07/30/[address] [facility] Work Phone: Comment on above: 1 Occurrences starti ng 07/30/2023 until 07/30/2024 End: 08-10-2025 12 lead ECG ECG 12 Lead ECG Routine CAD in tetlin artery 1 Occurrences starting 08/10/2024 until 08/10/[address] [facility] Work Phone: Comment on above: 1 Occurrences starti ng 08/10/2024 until 08/10/2025 End: 07-12-2024 Creatine kinase [Enzymatic activity/volume] in Serum or Plasma CPK Lab Routine CAD in tetlin artery 1 Occurrences starting 07/12/2023 until 07/12/[address] [facility] Comment on above: 1 Occurrences starti ng 07/12/2023 until 07/12/2024 End: 03-23-2020 MR Brain/Orbit With And Without Contrast MR Brain/Orbit With And Without Contrast Imaging Routine Fourth cranial nerve palsy, right Once for 1 Occurrences starting 03/23/2020 until 03/23/[address] [facility] Comment on above: Once for 1 Occurrenc es starting 03/23/2020 until 03/23/2020 MR Brain/Orbit With And Without Contrast MR Brain/Orbit With And Without Contrast Imaging Routine Fourth cranial nerve palsy, right 03/23/2020 6:56 PM EDT [facility] End: 05-05-2019 Radiography of [id number] XR Abdomen AP Imaging Routine Calculus of kidney Calculus of ureter Once for 1 Occurrences starting 05/05/2019 until 05/05/[address] [facility] Comment on above: Once for 1 Occurrenc es starting 05/05/2019 until 05/05/2019 Radiography of [id number]-[id number] XR Abdomen AP Imaging Routine Calculus of kidney Calculus of ureter 05/05/2019 5:20 PM EDT [facility] Immunizations Immunization Date Immunization Notes Care Provider Ashu gross 06-20-2023 influenza virus vacc ine, unspecified formulation Cheyenne Lorenzana MD Work Phone: [facility] 08-17-2021 Moderna SARS-CoV-2 Vaccination Booster Cheyenne Lorenzana MD Work Phone: [facility] 10-18-2020 Moderna SARS-CoV-2 Vaccination Chanda Ferreira [facility] 09-20-2020 Moderna SARS-CoV-2 Vaccination Karina Schmidt [facility] 07-21-2020 Seasonal, quadrivale nt, recombinant, injectable influenza vaccine, preservative free [facility] Schedule [facility] 07-21-2020 flu vac qv 2020,18yr up,rc,PF, (FLUBLOK QUAD) syringe [facility] Schedule [facility] 07-25-2018 influenza, injectabl e, quadrivalent, preservative free [facility] 06-06-2017 influenza, injectabl e, quadrivalent, preservative free [facility] 01-31-2015 tetanus toxoid, redu serena diphtheria toxoid, and acellular pertussis vaccine, adsorbed [facility] Payers Date Payer Category Payer Self-pay 2024 Private Health Insurance [facility] GENER[facility] [id number] 2021 Unknown [id number] [id number]. 2.7.3.005535.315 2021 Unknown [id number] 2014 Unknown xxxxxxxxx [id number]. 2.7.3.898051.315 2014 Unknown [id number] 1.2.840.314977.1.13.385. 2.7.3.968818.315 2014 Unknown [id number] 1960 Unknown [id number] 2.16.840.1.683612.3.579. 2.903 1960 Unknown [id number] 2.16.840.1.945566.3.579. 2.902 1960 Unknown [id number] 2.16.840.1.411046.3.579. 2.900 1960 Unknown [id number] 2.16.840.1.039682.3.579. 2.900 1960 Unknown [id number] 2.16.840.1.330096.3.579. 2.902 1960 Unknown [id number] 2.16.840.1.590941.3.579. 2.627 1960 Unknown [id number] 2.16.840.1.622721.3.579. 2.903 1960 Unknown [id number] 2.16.840.1.140495.3.579. 2.903 1960 Unknown [id number] 2.16.840.1.741991.3.579. 2.903 1960 Unknown [id number] 2.16.840.1.881844.3.579. 2.1260 1960 Unknown [id number] 2.16.840.1.393221.3.579. 2.1260 1960 Unknown [id number] 2.16.840.1.124404.3.579. 2.1260 Unknown [id number] 2.16.840.1.865302.3.579. 2.462 Unknown [id number] 2.16.840.1.122740.3.579. 2.462 Unknown [id number] 2.16.840.1.599294.3.579. 2.462 Unknown [id number] 2.16.840.1.114958.3.579. 2.462 Unknown [id number] 2.16.840.1.267614.3.579. 2.462 Unknown [id number] 2.16.840.1.964033.3.579. 2.462 Unknown [id number] 2.16.840.1.636962.3.579. 2.462 Unknown [id number] 2.16.840.1.940739.3.579. 2.462 Unknown [id number] 2.16.840.1.120404.3.579. 2.462 Unknown [id number] 2.16.840.1.911912.3.579. 2.462 Unknown [id number] 2.16.840.1.002206.3.579. 2.462 Unknown [id number] 2.16.840.1.272411.3.579. 2.462 Unknown [id number] 2.16.840.1.618971.3.579. 2.462 Unknown [id number] 2.16.840.1.683364.3.579. 2.462 Unknown [id number] 2.16.840.1.093616.3.579. 2.462 Unknown [id number] 2.16.840.1.562997.3.579. 2.462 Unknown [id number] 2.16.840.1.710985.3.579. 2.462 Unknown [id number] 2.16.840.1.346652.3.579. 2.462 Unknown [id number] 2.16.840.1.375218.3.579. 2.462 Unknown [id number] 2.16.840.1.647632.3.579. 2.462 Unknown [id number] 2.16.840.1.909300.3.579. 2.462 Unknown [id number] 2.16.840.1.728187.3.579. 2.462 Unknown [id number] 2.16.840.1.659534.3.579. 2.462 Unknown [id number] 2.16.840.1.211310.3.579. 2.462 Unknown [id number] 2.16.840.1.426099.3.579. 2.462 Unknown [id number] 2.16.840.1.605979.3.579. 2.462 Unknown [id number] 2.16.840.1.210226.3.579. 2.462 Unknown [id number] 2.16.840.1.337812.3.579. 2.462 Unknown [id number] 2.16.840.1.079169.3.579. 2.462 Unknown [id number] 2.16.840.1.564876.3.579. 2.462 Unknown [id number] 2.16.840.1.178830.3.579. 2.462 Unknown [id number] 2.16.840.1.526205.3.579. 2.462 Unknown [id number] 2.16.840.1.419833.3.579. 2.462 Unknown [id number] 2.16.840.1.234152.3.579. 2.462 Unknown [id number] 2.16.840.1.271492.3.579. 2.462 Unknown [id number] 2.16.840.1.758831.3.579. 2.462 Unknown [id number] 2.16.840.1.091749.3.579. 2.462 Unknown [id number] 2.16.840.1.289099.3.579. 2.462 Unknown [id number] 2.16.840.1.095879.3.579. 2.462 Social History Date Type Detail Facility Start: 03-26-2019 End: 07-27-2022 Tobacco smoking status NHIS Never smoker [facility] Start: 03-26-2016 Alcohol Comment occ [facility] Start: 1960 Sex Assigned At Not on file [facility] Start: 03-23-2020 End: 09-15-2024 Alcohol intake Current drinker of alcohol (finding) [facility] Start: 04-06-2019 Alcohol Comment 2 drinks per week [facility] Start: 03-23-2020 End: 12-18-2024 Tobacco use and exposure [facility] Start: 07-16-2022 End: 08-24-2022 Exposure to SARS-CoV-2 (event) Not sure [facility] Start: 01-16-2021 History SDOH Alcohol Frequency [address] [facility] Start: 01-16-2021 History SDOH Alcohol Std Drinks [address] [facility] Start: 01-31-2015 End: 12-18-2024 Cigarette pack-years [facility] History of tobacco use [facility] Start: 07-27-2022 Tobacco Comment Smokes occasional ci gar [facility] Start: 07-27-2022 Alcohol Comment Occasionally [facility] Start: 08-06-2022 End: 08-27-2023 Tobacco smoking status NHIS Occasional tobacco smoker [facility] History of tobacco use Pipe Sm[facility] History of tobacco use Cigar Smoker [facility] Start: 01-16-2021 End: 12-18-2024 Alcohol Use Disorder Identification Test - Consumption [AUDIT-C] [facility] How often to you hav e a drink containing alcohol? 2-4 times a month [facility] How many standard dr inks containing alcohol do you have on a typical day? 1 or 2 [facility] How often do you hav e 6 or more drinks on 1 occasion? Never [facility] Start: 03-26-2019 Gender identity Identifies as male gender (finding) [facility] Start: 03-26-2019 Sexual orientation Heterosexual (fin ding) [facility] Start: 08-27-2023 Tobacco Comment Occasional cigar [facility] Start: 12-18-2024 Tobacco smoking status NHIS Ex-smoke r [facility] History of tobacco use Current smoker [facility] Start: 12-18-2024 Alcoholic beverage intake Ex-drinker (finding) [facility] National Score (1-10 0), lower number is lower risk 48 [facility] Start: 12-18-2024 Tobacco Comment Quit Aug 2024 [facility] Clinical Notes 01-23-2021 to 12-18-2024 Patient InstructionsMary Navarro - 12/18/2024 11:35 AM Mindi Sewell MA - 12/18/2024 11:02 AM Cheyenne Salvador MD - 09/15/2024 12:11 PM ESTPatient InstructionsPatient Instructions Note Date & Type Note Facility 12-18-2024 Instructions Mary Navarro - 12/18/2024 11:36 AM EDT Avoid walking barefoot; wear shoes with hard soles, such as slippers or Crocs, even indoors. - Inspect your feet daily for sores or injuries, including between your toes. - Apply lotion to your feet regularly to prevent dryness. - Monitor your blood sugar levels and maintain a healthy diet and exercise routine to help control your A1c and slow the progression of neuropathy. - Trim your toenails straight across to prevent ingrown toenails. - Next follow-up appointment is in 6 months. - Contact the office and speak to the podiatry nurse if you develop any foot problems before your next appointment. Diabetes Foot Care Instructions When you have diabetes, proper foot care is very important. Poor foot care may lead to amputation of a foot or leg. As a person with diabetes, you are more vulnerable to foot problems, because diabetes can damage your nerves and reduce blood flow to your feet. Here are some diabetes foot care tips to follow: Wash and Dry Your Feet Daily Use mild soaps Use warm water Pat your skin dry; do not rub. Thoroughly dry your feet. After washing, use lotion on your feet to prevent cracking. Do not put lotion between your toes. Examine Your Feet Each Day Check the tops and bottoms of your feet. Have someone else look at your feet if you cannot see them. Check for dry, cracked skin. Look for blisters, cuts, scratches, or other sores. Check for redness, increased warmth, or tenderness when touching any area of your feet. Check for ingrown toenails, corns, and calluses. If you get a blister or sore from your shoes, do not pop it. Apply a bandage and wear a different pair of shoes. Take Care of Your Toenails Cut toenails after bathing, when they are soft. Cut toenails straight across and smooth with a nail file. Avoid cutting into the corners of toes. Do not cut cuticles. If you have neuropathy (or decreased sensation in your feet) a lap layer should always cut your toenails. Be Careful When Exercising Walk and exercise in comfortable shoes. Do not exercise when you have open sores on your feet. Protect Your Feet With Shoes and Socks Never go barefoot. Always protect your feet by wearing shoes or hard-soled slippers or footwear. Avoid shoes with high heels and pointed toes. Avoid shoes that expose your toes or heels (such as open-toed shoes or sandals). These types of shoes increase your risk for injury and potential infections. Try on new footwear with the type of socks you usually wear. Do not wear new shoes for more than an hour at a time. Change your socks daily. Look and feel inside your shoes before putting them on to make sure there are no foreign objects or rough areas. Avoid tight socks. Wear natural-fiber socks (cotton, wool, or a cotton-wool blend). Wear special shoes if your health care provider recommends them. Wear shoes/boots that will protect your feet from various weather conditions (cold, moisture, etc.). Make sure your shoes fit properly. If you have neuropathy (nerve damage), you may not notice that your shoes are too tight. Perform the footwear test described below. Footwear Test Use this simple test to see if your shoes fit correctly: Stand on a piece of paper. (Make sure you are standing and not sitting, because your foot changes shape when you stand.) Trace the outline of your foot. Trace the outline of your shoe. Compare the tracings: Is the shoe too narrow? Is your foot crammed into the shoe? The shoe should be at least 1/2 inch longer than your longest toe and as wide as your foot. Proper Shoe Choices The following types of shoes are best for people with diabetes Closed toes and heels Leather uppers without a seam inside At least 1/2 inch extra space at the end of your longest toe Inside of shoe should be soft with no rough areas Outer sole should be made of stiff material Shoes should be at least as wide as your feet Tips for Foot Care in Diabetes Don't wait to treat a minor foot problem if you have diabetes. Follow your health care provider's guidelines and first aid guidelines. Report foot injuries and infections to your health care provider immediately. Check water temperature with your elbow, not your foot. Do not use a heating pad on your feet. Do not cross your legs. Do not self-treat your corns, calluses, or other foot problems. Go to your health care provider or lap layer to treat these conditions. documented in this encounter [facility] 12-18-2024 Note HNO ID: [id number] Author: MARY NAVARRO, ? Service: ? Author Type: Physician Type: Progress Notes Filed: 12/19/2024 11:25 Note Text: Subjective Lawrence is a 64-year-old male with a history of diabetes mellitus and recent CVA, presenting for a diabetic foot exam and foot care. Diabetes Mellitus: - Diagnosed in 2012. - Reports mild burning, tingling, and numbness in feet. - Denies wounds, sores, or amputations. - Last HbA1c in September was 8.1%; recent HbA1c reportedly 6.5%. CVA: - Occurred on October 14. - No longer on anticoagulant therapy. Toenail Care: - Toenails cause pain when too long. - Uses a rubber grinder for nail maintenance. Musculoskeletal: (+) toe pain with overgrown nails Skin: (-) nonhealing wounds or sores Neurological: (+) burning/tingling/numbness in feet PAST MEDICAL HISTORY Diagnosis Date CVA (cerebral vascular accident) (HCC) Diabetes mellitus (HCC) ALLERGIES Allergen Reactions Melon Rash Iodinated Contrast * Hives No family history on file. Objective There were no vitals taken for this visit. - Cardiovascular: Dorsalis pedis and posterior tibial pulses palpable bilaterally. Capillary refill time brisk in bilateral hallux. - Skin: Skin temperature warm to cool; hair growth present bilaterally; no open sores, calluses, or ulcerations noted; skin color normal. toenails are incurvated with pain. no local signs of bacterial infection. - Neurological: Protective sensation intact bilaterally; decreased vibratory sensation in bilateral hallux. - Musculoskeletal: - Bilateral Hallux: - Toenails with tendency to ingrow along the medial nail border. Labs: Hemoglobin A1c: 6.5 (September) Hemoglobin A1c: 8.1 1. Diabetic polyneuropathy associated with type 2 diabetes mellitus (HCC) (E11.42) - Diabetes mellitus type 2 for 12 years; recent HbA1c in September was 8.1%. - Neurological exam reveals intact protective sensation bilaterally, but decreased vibratory sensation at the hallux bilaterally, indicating early signs of neuropathy. - Educated on the importance of glycemic control to slow neuropathy progression; patient reports recent HbA1c of 6.5%. - Advised against barefoot walking and recommended wearing footwear with a hard sole even indoors to prevent injuries. - Instructed on daily foot inspection and application of lotion to prevent dryness. 2. Ingrowing toenail (L60.0) 3. Onychocryptosis (L60.0) 4. Pain in toe of left foot (M79.675) 5. Pain in toe of right foot (M79.674) - Bilateral hallux toenails show a tendency to ingrow along the medial nail border, causing pain when toenails are too long. - Trimmed toenails 1-5 b/l during the visit. - Discussed criteria for insurance coverage of nail care, including pain and risk factors. - Educated on proper nail care, advising to cut toenails straight across to prevent ingrowth. - Scheduled follow-up in 6 months for nail care, with instructions to contact the office if any problems arise before then. - could consider partial or total nail removal via chemical matrixectomy but would need to keep sugars/a1c under 8.0 Attestation Recording using [employer] [place] software for draft documentation of the visit was discussed with the patient/authorized front desk representative; all questions welcomed and answered. Patient/authorized front desk representative agreed to proceed Mary Navarro DPM [facility] 12-18-2024 History of Presen t illness Narrative Subjective Lawrence is a 64-year-old male with a history of diabetes mellitus and recent CVA, presenting for a diabetic foot exam and foot care. Diabetes Mellitus: - Diagnosed in 2012. - Reports mild burning, tingling, and numbness in feet. - Denies wounds, sores, or amputations. - Last HbA1c in September was 8.1%; recent HbA1c reportedly 6.5%. CVA: - Occurred on October 14. - No longer on anticoagulant therapy. Toenail Care: - Toenails cause pain when too long. - Uses a rubber grinder for nail maintenance. Musculoskeletal: (+) toe pain with overgrown nails Skin: (-) nonhealing wounds or sores Neurological: (+) burning/tingling/numbness in feet PAST MEDICAL HISTORY Diagnosis Date CVA (cerebral vascular accident) ([facility]) Diabetes mellitus ([facility]) ALLERGIES Allergen Reactions Melon Rash Iodinated Contrast * Hives No family history on file. Objective There were no vitals taken for this visit. - Cardiovascular: Dorsalis pedis and posterior tibial pulses palpable bilaterally. Capillary refill time brisk in bilateral hallux. - Skin: Skin temperature warm to cool; hair growth present bilaterally; no open sores, calluses, or ulcerations noted; skin color normal. toenails are incurvated with pain. no local signs of bacterial infection. - Neurological: Protective sensation intact bilaterally; decreased vibratory sensation in bilateral hallux. - Musculoskeletal: - Bilateral Hallux: - Toenails with tendency to ingrow along the medial nail border. Labs: Hemoglobin A1c: 6.5 (September) Hemoglobin A1c: 8.1 1. Diabetic polyneuropathy associated with type 2 diabetes mellitus (HCC) (E11.42) - Diabetes mellitus type 2 for 12 years; recent HbA1c in September was 8.1%. - Neurological exam reveals intact protective sensation bilaterally, but decreased vibratory sensation at the hallux bilaterally, indicating early signs of neuropathy. - Educated on the importance of glycemic control to slow neuropathy progression; patient reports recent HbA1c of 6.5%. - Advised against barefoot walking and recommended wearing footwear with a hard sole even indoors to prevent injuries. - Instructed on daily foot inspection and application of lotion to prevent dryness. 2. Ingrowing toenail (L60.0) 3. Onychocryptosis (L60.0) 4. Pain in toe of left foot (M79.675) 5. Pain in toe of right foot (M79.674) - Bilateral hallux toenails show a tendency to ingrow along the medial nail border, causing pain when toenails are too long. - Trimmed toenails 1-5 b/l during the visit. - Discussed criteria for insurance coverage of nail care, including pain and risk factors. - Educated on proper nail care, advising to cut toenails straight across to prevent ingrowth. - Scheduled follow-up in 6 months for nail care, with instructions to contact the office if any problems arise before then. - could consider partial or total nail removal via chemical matrixectomy but would need to keep sugars/a1c under 8.0 Attestation Recording using [employer] [place] software for draft documentation of the visit was discussed with the patient/authorized front desk representative; all questions welcomed and answered. Patient/authorized front desk representative agreed to proceed Mary Navarro DPM AMB ROOMING INTAKE FLOWSHEET DATA Risk Screening Do you have concerns about personal safety or safety in the home?: No Patient presents with: Left Foot - New: DM foot care Right Foot - New: DM foot care Pt here today to become established patient for routine DM nail care. Formerly seen Podiatry in [place] two years ago. Moved to this area and has not seen anyone since. Recent hx of CVA. Pt treated with Metformin and Semglee for DM. Does have some numbness, tingling, and burning in his right foot. This started after having CVA 10/2024. Mindi Bowen MA documented in this encounter [facility] 12-18-2024 Note HNO ID: [id number] Author: MINDI BOWEN MA Service: ? Author Type: [employer] Type: Progress Notes Filed: 12/19/2024 11:25 Note Text: AMB ROOMING INTAKE FLOWSHEET DATA Risk Screening Do you have concerns about personal safety or safety in the home?: No Patient presents with: Left Foot - New: DM foot care Right Foot - New: DM foot care Pt here today to become established patient for routine DM nail care. Formerly seen Podiatry in [place] two years ago. Moved to this area and has not seen anyone since. Recent hx of CVA. Pt treated with Metformin and Semglee for DM. Does have some numbness, tingling, and burning in his right foot. This started after having CVA 10/2024. Mindi Bowen MA [facility] 11-25-2024 Note [facility] 10-16-2024 Note [facility] 10-16-2024 Note [facility] 09-15-2024 Note [facility] [id number] [facility] [address] [facility] [id number] Subjective: Lawrence Cristina is a 64 y.o. male seen in the office today for Follow-up (1 year) HPI: Lawrence Cristina is a very pleasant 64 y.o. year old male who presents for a cardiology consultation who has risk factors for coronary disease as well as known CAD on a catheterization in the past. He has no symptoms of angina which is encouraging and has been bothered by his back which is limited his ability to exercise. His hemoglobin A1c is elevated at 8.1 and presently is taking metformin 1000 mg twice daily. With atorvastatin 20 mg daily he is not having any symptoms of the myalgias he is having on rosuvastatin and his LDL cholesterol is excellent. His HDLs are low and his triglycerides are elevated most like related to his diabetes. He is on Tricor as well as the atorvastatin and I plan on trying Vascepa to see if this helps his triglycerides some. Will see if his insurance will pay for Ozempic for weight loss as well as for diabetic control. He has no cardiac symptoms and his exam is unremarkable as well as his EKG which shows sinus rhythm with a left axis deviation. I am hopeful cardiac glass will continue to do well and remain angina free and hopefully by controlling his risk factors we can prevent the progression of his heart disease. Thank you very much Physical Examination: BP 132/80 (BP Location: Right arm, Patient Position: Sitting, BP Cuff Size: X-large Adult) Pulse 75 Ht 5' 7 Wt 97.9 kg (215 lb 12.8 oz) BMI 33.80 kg/m Physical Exam Vitals and nursing note reviewed. Cardiovascular: Rate and Rhythm: Normal rate and regular rhythm. No extrasystoles are present. Pulses: Carotid pulses are 2+ on the right side and 2+ on the left side. Radial pulses are 2+ on the right side and 2+ on the left side. Posterior tibial pulses are 2+ on the right side and 2+ on the left side. Heart sounds: Normal heart sounds. No murmur heard. No gallop. Pulmonary: Effort: Pulmonary effort is normal. Breath sounds: Normal breath sounds and air entry. I agree with the Review of Systems done during the patient visit by the MA. EKG: unchanged from previous tracings, normal sinus rhythm, left axis deviation. Assessment & Plan: No problem-specific Assessment & Plan notes found for this encounter. Histories: Past Medical History: Diagnosis Date Allergic rhinitis Arthritis Asthma periodically uses inhalers none curently Chronic cough Complication of anesthesia slow to arouse also pt has woken up during surgeries Diabetes mellitus (HCC) well controlled with medication Diabetes mellitus, type 2 (HCC) History of cardiac cath 2014 results cc History of echocardiogram 2015 results cc Hyperlipidemia Hypertension 08/27/2023 Kidney stone 04/2019 Nephrolithiasis Obstructive sleep apnea cpap Past Surgical History: Procedure Laterality Date CARDIAC CATHETERIZATION 11/25/2014 EF 55%, Mild, diffuse disease in Left main Luminal Irregularities 40 % proximal lesion in LAD Luminal Irregularities 30 % mid lesion in LAD Mild, diffuse disease in CIRC Luminal Irregularities 30 % proximal lesion in RCA Luminal Irregularities 40 % mid lesion in RCA HEMORRHOIDECTOMY 12/27/2003 LUMPECTOMY 10/14/1998 LEFT MODIFIED RADICAL NECK DISSECTION WITH SPARING OF THE 11TH CRANIAL NERVE. ORTHOPEDIC SURGERY Right knee scope meniscus REFRACTIVE SURGERY TONSILLECTOMY WISDOM TOOTH EXTRACTION Family History Problem Relation Age of Onset COPD Mother Osteoarthritis Mother Heart disease Father Pancreatic cancer Father Diabetes Father Type II Pancreatitis Father Arthritis Sister Diabetes Brother Insulin Dementia Brother Heart disease Paternal Grandfather Social History Tobacco Use Smoking status: Some Days Types: Pipe, Cigars Passive exposure: Past Smokeless tobacco: Never Tobacco comments: Occasional cigar Vaping Use Vaping status: Never Used Substance Use Topics Alcohol use: Yes Alcohol/week: 4.0 standard drinks of alcohol Types: 2 Cans of beer, 2 Shots of liquor per week Comment: Occasionally Drug use: No Patient's Medications New Prescriptions SEMAGLUTIDE (OZEMPIC) 0.25 MG OR 0.5 MG (2 MG/3 ML) PEN Inject 0.25 (one-quarter) mg under the skin every 7 days . Previous Medications ASPIRIN 81 MG EC TABLET Take 1 (one) tablet (81 mg total) by mouth daily Reasons: on hold for surgery last dose 03/31. ATORVASTATIN (LIPITOR) 20 MG TABLET Take 1 (one) tablet (20 mg total) by mouth daily . COENZYME Q10 10 MG CAPSULE Take 10 mg by mouth 2 (two) times a day . FLU VAC QV 2019,18YR UP,RC,PF, (FLUBLOK QUAD) SYRINGE Sign this order in conjunction with the immunization order to satisfy [place] Board of Pharmacy Positive ID requirements for immunization orders. . LORATADINE (CLARITIN) 10 MG TABLET Take 1 (one) tablet (1 (more content not included)... [facility] 09-15-2024 History of Presen t illness Narrative [facility] [address] [facility] [address] [facility] [id number] Subjective: Lawrence Cristina is a 64 y.o. male seen in the office today for Follow-up (1 year) HPI: Lawrence Cristina is a very pleasant 64 y.o. year old male who presents for a cardiology consultation who has risk factors for coronary disease as well as known CAD on a catheterization in the past. He has no symptoms of angina which is encouraging and has been bothered by his back which is limited his ability to exercise. His hemoglobin A1c is elevated at 8.1 and presently is taking metformin 1000 mg twice daily. With atorvastatin 20 mg daily he is not having any symptoms of the myalgias he is having on rosuvastatin and his LDL cholesterol is excellent. His HDLs are low and his triglycerides are elevated most like related to his diabetes. He is on Tricor as well as the atorvastatin and I plan on trying Vascepa to see if this helps his triglycerides some. Will see if his insurance will pay for Ozempic for weight loss as well as for diabetic control. He has no cardiac symptoms and his exam is unremarkable as well as his EKG which shows sinus rhythm with a left axis deviation. I am hopeful cardiac glass will continue to do well and remain angina free and hopefully by controlling his risk factors we can prevent the progression of his heart disease. Thank you very much Physical Examination: BP 132/80 (BP Location: Right arm, Patient Position: Sitting, BP Cuff Size: X-large Adult) Pulse 75 Ht 5' 7 Wt 97.9 kg (215 lb 12.8 oz) BMI 33.80 kg/m Physical Exam Vitals and nursing note reviewed. Cardiovascular: Rate and Rhythm: Normal rate and regular rhythm. No extrasystoles are present. Pulses: Carotid pulses are 2+ on the right side and 2+ on the left side. Radial pulses are 2+ on the right side and 2+ on the left side. Posterior tibial pulses are 2+ on the right side and 2+ on the left side. Heart sounds: Normal heart sounds. No murmur heard. No gallop. Pulmonary: Effort: Pulmonary effort is normal. Breath sounds: Normal breath sounds and air entry. I agree with the Review of Systems done during the patient visit by the MA. EKG: unchanged from previous tracings, normal sinus rhythm, left axis deviation. Assessment & Plan: No problem-specific Assessment & Plan notes found for this encounter. Histories: Past Medical History: Diagnosis Date Allergic rhinitis Arthritis Asthma periodically uses inhalers none curently Chronic cough Complication of anesthesia slow to arouse also pt has woken up during surgeries Diabetes mellitus (HCC) well controlled with medication Diabetes mellitus, type 2 (HCC) History of cardiac cath 2014 results cc History of echocardiogram 2014 results cc Hyperlipidemia Hypertension 08/27/2023 Kidney stone 04/2019 Nephrolithiasis Obstructive sleep apnea cpap Past Surgical History: Procedure Laterality Date CARDIAC CATHETERIZATION 11/25/2014 EF 55%, Mild, diffuse disease in Left main Luminal Irregularities 40 % proximal lesion in LAD Luminal Irregularities 30 % mid lesion in LAD Mild, diffuse disease in CIRC Luminal Irregularities 30 % proximal lesion in RCA Luminal Irregularities 40 % mid lesion in RCA HEMORRHOIDECTOMY 12/27/2003 LUMPECTOMY 10/14/1998 LEFT MODIFIED RADICAL NECK DISSECTION WITH SPARING OF THE 11TH CRANIAL NERVE. ORTHOPEDIC SURGERY Right knee scope meniscus REFRACTIVE SURGERY TONSILLECTOMY WISDOM TOOTH EXTRACTION Family History Problem Relation Age of Onset COPD Mother Osteoarthritis Mother Heart disease Father Pancreatic cancer Father Diabetes Father Type II Pancreatitis Father Arthritis Sister Diabetes Brother Insulin Dementia Brother Heart disease Paternal Grandfather Social History Tobacco Use Smoking status: Some Days Types: Pipe, Cigars Passive exposure: Past Smokeless tobacco: Never Tobacco comments: Occasional cigar Vaping Use Vaping status: Never Used Substance Use Topics Alcohol use: Yes Alcohol/week: 4.0 standard drinks of alcohol Types: 2 Cans of beer, 2 Shots of liquor per week Comment: Occasionally Drug use: No Patient's Medications New Prescriptions SEMAGLUTIDE (OZEMPIC) 0.25 MG OR 0.5 MG (2 MG/3 ML) PEN Inject 0.25 (one-quarter) mg under the skin every 7 days . Previous Medications ASPIRIN 81 MG EC TABLET Take 1 (one) tablet (81 mg total) by mouth daily Reasons: on hold for surgery last dose 03/31. ATORVASTATIN (LIPITOR) 20 MG TABLET Take 1 (one) tablet (20 mg total) by mouth daily . COENZYME Q10 10 MG CAPSULE Take 10 mg by mouth 2 (two) times a day . FLU VAC QV 2020,18YR UP,RC,PF, (FLUBLOK QUAD) SYRINGE Sign this order in conjunction with the immunization order to satisfy [place] Board of Pharmacy Positive ID requirements for immunization orders. . LORATADINE (CLARITIN) 10 MG TABLET Take 1 (one) tablet (10 mg total) by mouth daily with breakfast . LOSARTAN (COZAAR) 100 MG TABLET TAKE 1 TABLET BY MOUTH EVERY DAY METFORMIN (GLUCOPHAGE) 500 MG TABLET Take 2 (two) tablets (1,000 mg total) by mouth 2 (two) times a day with meals Reasons: do not take dos. PREDNISONE (DELTASONE) 50 MG TABLET Take 1 tablet 13 hrs before testing, 1 tablet 7 hrs before testing and 1 hour before testing. Take last dose of Prednisone with Benadryl 50mg. . UNKNOWN Med Name: Allergy Shots Reasons: every month. Modified Medications Modified Medication Previous Medication FENOFIBRATE (TRICOR) 145 MG TABLET fenofibrate (TRICOR) 145 MG tablet Take 1 (one) tablet (145 mg total) by mouth daily Give with food . Take 1 (one) tablet (145 mg total) by mouth daily Give with food . ICOSAPENT ETHYL 1 GRAM CAP icosapent ethyL 1 gram cap Take 2 (two) capsules (2 g total) by mouth 2 (two) times a day . Take 2 (two) capsules (2 g total) by mouth 2 (two) times a day . Discontinued Medications OMEGA-3 FATTY ACIDS-VITAMIN E 1,000 MG CAP Take 1 tablet by mouth daily Reasons: instructed to hold for surgery last dose 04/05. Allergies Allergen Reactions Ct: Iodinated Contrast- Oral And Iv Dye Hives Melon Unknown Overview of Problems Addressed: No problems updated. Objective: Orders Placed This Encounter fenofibrate (TRICOR) 145 MG tablet icosapent ethyL 1 gram cap semaglutide (Ozempic) 0.25 mg or 0.5 mg (2 mg/3 mL) Pen Follow Up Ordered: Return in about 1 year (around 09/15/2025). Cheyenne Lorenzana MD documented in this encounter [facility] 09-15-2024 Instructions Tyson Ross RN - 09/15/2024 11:51 AM EST There may be medications on your list that you were prescribed, but you said you were not taking or are taking differently. These medications are important to your health. Please discuss these with the person who prescribed the medication(s) to you. If you have any questions, please do not hesitate to call me at [phone]. Tyson Ross RN, BSN Nurse Acquisition Cost Estimator for Dr. Nuno Lorenzana & Angel Motta NP [facility] [address] [place] [address] [address] [place] [address] documented in this encounter [facility] 08-24-2024 Telephone encounter Note Next OV 09/15/[address] [facility] 08-24-2024 Miscellaneous Notes Next OV 09/15/24 documented in this encounter [facility] 07-10-2024 Note Addended by: SARAH HASSAN on: 07/10/2024 08:40 AM Modules accepted: Orders [facility] 07-10-2024 Miscellaneous Notes Addended by: SARAH HASSAN on: 07/10/2024 08:40 AM Modules accepted: Orders [employer] message not read by patient. Called him letting him know to remain off the Crestor and Lipitor was added (reflected in med list). Will sent in new refill- was sent to incorrect pharmacy. Understands to discuss Ozempic and Januvia with PCP. Discussed lipid clinic with patient but he would like to hold off for now. After repeat lab work in about 2 months based off those results he might reconsider. Addended by: TYSON ROSS on: 07/07/2024 02:01 PM Modules accepted: Orders Message sent back to patient reviewing Dr. Lorenzana's recommendations. I would try Lipitor 20 mg daily. With regard to Januvia and or Ozempic and cost he should actually ask his primary care doctor. He may be a candidate for the lipid clinic and maybe they can help him. Addended by: TYSON ROSS on: 07/07/2024 07:15 AM Modules accepted: Orders Received via [employer]: Tyson, Stopped taking Crestor and have noticed a decrease in my hip and back pain. Hoping decreased pain will allow me to get back exercising. Still taking Tricor. Not taking Januvia ($450) or Ozempic($668) due to cost. Any other options? Thanks. Lawrence Results viewed by patient in [employer]. Increased dose of crestor sent to pharmacy. Repeat lipid order for 2 months placed. Patient updated via [employer]. ----- Message from Nuno Lorenzana sent at 07/04/2024 9:12 AM EDT ----- Unfortunately your labs do not look so good. Have a little concerned about your triglycerides being as high as they are placed related to your blood sugars being elevated and your hemoglobin A1c being over 8. They could not calculate your LDL cholesterol but I am sure it is too high given your overall cholesterol number and HDLs. I would like to increase your Crestor to 20 mg daily. I would check with Dr. Lombardi with regard to your blood sugars and see whether you should see an batch roller operator if you are not already seeing someone. I would like to increase his Crestor to 20 mg daily. I would encourage him to see an batch roller operator about his blood sugars and elevated triglycerides which is related to that. documented in this encounter [facility] 07-10-2024 Telephone encounter Note [employer] Network message not read by patient. Called him letting him know to remain off the Crestor and Lipitor was added (reflected in med list). Will sent in new refill- was sent to incorrect pharmacy. Understands to discuss Ozempic and Januvia with PCP. Discussed lipid clinic with patient but he would like to hold off for now. After repeat lab work in about 2 months based off those results he might reconsider. [facility] 07-07-2024 Note Addended by: Keshia ROSS on: 07/07/2024 02:01 PM Modules accepted: Orders [facility] 07-07-2024 Telephone encounter Note Message sent back to patient reviewing Dr. Lorenzana's recommendations. [facility] 07-07-2024 Telephone encounter Note I would try Lipitor 20 mg daily. With regard to Januvia and or Ozempic and cost he should actually ask his primary care doctor. He may be a candidate for the lipid clinic and maybe they can help him. [facility] 07-07-2024 Note Addended by: Keshia ROSS on: 07/07/2024 07:15 AM Modules accepted: Orders [facility] 07-07-2024 Note Addended by: Keshia ROSS on: 07/07/2024 07:15 AM Modules accepted: Orders [facility] 07-07-2024 Miscellaneous Notes Addended by: TYSON ROSS on: 07/07/2024 07:15 AM Modules accepted: Orders Received via Spinzo: Tyson, Stopped taking Crestor and have noticed a decrease in my hip and back pain. Hoping decreased pain will allow me to get back exercising. Still taking Tricor. Not taking Januvia ($450) or Ozempic($668) due to cost. Any other options? Thanks. Lawrence Results viewed by patient in HOLLRhart. Increased dose of crestor sent to pharmacy. Repeat lipid order for 2 months placed. Patient updated via Spinzo. ----- Message from Nuno Lorenzana sent at 07/04/2024 9:12 AM EDT ----- Unfortunately your labs do not look so good. Have a little concerned about your triglycerides being as high as they are placed related to your blood sugars being elevated and your hemoglobin A1c being over 8. They could not calculate your LDL cholesterol but I am sure it is too high given your overall cholesterol number and HDLs. I would like to increase your Crestor to 20 mg daily. I would check with Dr. Lombardi with regard to your blood sugars and see whether you should see an batch roller operator if you are not already seeing someone. I would like to increase his Crestor to 20 mg daily. I would encourage him to see an batch roller operator about his blood sugars and elevated triglycerides which is related to that. documented in this encounter [facility] 07-07-2024 Telephone encounter Note Received via Spinzo: Tyson, Stopped taking Crestor and have noticed a decrease in my hip and back pain. Hoping decreased pain will allow me to get back exercising. Still taking Tricor. Not taking Januvia ($450) or Ozempic($668) due to cost. Any other options? Thanks. Lawrence [facility] 07-06-2024 Telephone encounter Note Results viewed by patient in HOLLRhart. Increased dose of crestor sent to pharmacy. Repeat lipid order for 2 months placed. Patient updated via Roobiqt. [facility] 07-06-2024 Telephone encounter Note ----- Message from Nuno Lorenzana sent at 07/04/2024 9:12 AM EDT ----- Unfortunately your labs do not look so good. Have a little concerned about your triglycerides being as high as they are placed related to your blood sugars being elevated and your hemoglobin A1c being over 8. They could not calculate your LDL cholesterol but I am sure it is too high given your overall cholesterol number and HDLs. I would like to increase your Crestor to 20 mg daily. I would check with Dr. Lombardi with regard to your blood sugars and see whether you should see an batch roller operator if you are not already seeing someone. I would like to increase his Crestor to 20 mg daily. I would encourage him to see an batch roller operator about his blood sugars and elevated triglycerides which is related to that. [facility] 07-06-2024 Miscellaneous Notes Results viewed by patient in Plistent. Increased dose of crestor sent to pharmacy. Repeat lipid order for 2 months placed. Patient updated via Spinzo. ----- Message from Nuno Lorenzana sent at 07/04/2024 9:12 AM EDT ----- Unfortunately your labs do not look so good. Have a little concerned about your triglycerides being as high as they are placed related to your blood sugars being elevated and your hemoglobin A1c being over 8. They could not calculate your LDL cholesterol but I am sure it is too high given your overall cholesterol number and HDLs. I would like to increase your Crestor to 20 mg daily. I would check with Dr. Lombardi with regard to your blood sugars and see whether you should see an batch roller operator if you are not already seeing someone. I would like to increase his Crestor to 20 mg daily. I would encourage him to see an batch roller operator about his blood sugars and elevated triglycerides which is related to that. documented in this encounter [facility] 08-27-2023 Instructions Tyson Ross RN - 08/27/2023 11:[address] Contrast Allergy Pre-medications Take first dose of prednisone 50mg by mouth 13 hours prior to test. Take second dose of prednisone 50mg by mouth 7 hours prior to test. Take third dose of prednisone 50mg by mouth along with Benadryl 50 mg by mouth 1 hour prior to test. If you have any questions, please do not hesitate to call me at [phone]. Tyson Ross RN, BSN Nurse Acquisition Cost Estimator for Dr. Nuno Lorenzana [facility] [address] [place], [place] [address] documented in this encounter [facility] 08-27-2023 History of Presen t illness Narrative [facility] [address] [facility] [address] [facility] [id number] Subjective: Lawrence Cristina is a 63 y.o. male seen in the office today for Establish Care (1 year follow up. CAD) HPI: Lawrence Cristina is a very pleasant 63 y.o. year old male who presents for a cardiology consultation who has stable coronary disease seen on a catheterization. Will try to control his risk factors and his main issue has been his triglycerides which have been significantly increased. He is on fish oil as well as Tricor 145 mg daily and Crestor 10 mg a day. His LDL cholesterol is at goal and his last triglyceride was 290 but his hemoglobin A1c was increased and he states he will plan on starting him on Ozempic. He has been having issues with his hips hurting and has had x-rays done and I am not totally convinced is related to his Crestor but if there is no significant arthritis I think it is reasonable to hold his Crestor for a month and see if it makes things better. Will see what the results of the x-ray are first before we stop the Crestor. He has also had some issues with sexual dysfunction and is concerned about circulation to his private parts. I plan on getting a CT scan of his abdomen and pelvis to look for any sort of stenosis of his internal iliacs. His peripheral pulses are 2+ and his carotids were without bruits and his cardiac exam was unremarkable. His EKG was stable as well. His blood pressure is increasing therefore I plan on starting on losartan 100 mg daily. I will have him monitor his blood pressures at home. Hopefully Cardiolite will continue to do well and I will see him back next year. Thank you very much Physical Examination: BP (!) 157/91 (BP Location: Right arm, Patient Position: Sitting, BP Cuff Size: Adult) Pulse 83 Ht 5' 7 Wt 99.8 kg (220 lb) BMI 34.46 kg/m Physical Exam Vitals and nursing note reviewed. Cardiovascular: Rate and Rhythm: Normal rate and regular rhythm. No extrasystoles are present. Pulses: Carotid pulses are 2+ on the right side and 2+ on the left side. Radial pulses are 2+ on the right side and 2+ on the left side. Dorsalis pedis pulses are 2+ on the right side and 2+ on the left side. Posterior tibial pulses are 2+ on the right side and 2+ on the left side. Heart sounds: Normal heart sounds. No murmur heard. No gallop. Pulmonary: Effort: Pulmonary effort is normal. Breath sounds: Normal breath sounds and air entry. I agree with the Review of Systems done during the patient visit by the MA. EKG: unchanged from previous tracings, normal sinus rhythm. Assessment & Plan: No problem-specific Assessment & Plan notes found for this encounter. Histories: Past Medical History: Diagnosis Date Allergic rhinitis Arthritis Asthma periodically uses inhalers none curently Chronic cough Complication of anesthesia slow to arouse also pt has woken up during surgeries Diabetes mellitus (HCC) well controlled with medication Diabetes mellitus, type 2 (HCC) History of cardiac cath 2014 results cc History of echocardiogram 2015 results cc Hyperlipidemia Hypertension 08/27/2023 Kidney stone 04/2019 Nephrolithiasis Obstructive sleep apnea cpap Past Surgical History: Procedure Laterality Date CARDIAC CATHETERIZATION 11/25/2014 EF 55%, Mild, diffuse disease in Left main Luminal Irregularities 40 % proximal lesion in LAD Luminal Irregularities 30 % mid lesion in LAD Mild, diffuse disease in CIRC Luminal Irregularities 30 % proximal lesion in RCA Luminal Irregularities 40 % mid lesion in RCA HEMORRHOIDECTOMY 12/27/2003 LUMPECTOMY 10/14/1998 LEFT MODIFIED RADICAL NECK DISSECTION WITH SPARING OF THE 11TH CRANIAL NERVE. ORTHOPEDIC SURGERY Right knee scope meniscus REFRACTIVE SURGERY TONSILLECTOMY WISDOM TOOTH EXTRACTION Family History Problem Relation Age of Onset COPD Mother Osteoarthritis Mother Heart disease Father Pancreatic cancer Father Diabetes Father Type II Pancreatitis Father Arthritis Sister Diabetes Brother Insulin Dementia Brother Heart disease Paternal Grandfather Social History Tobacco Use Smoking status: Some Days Types: Pipe, Cigars Passive exposure: Past Smokeless tobacco: Never Tobacco comments: Occasional cigar Vaping Use Vaping Use: Never used Substance Use Topics Alcohol use: Yes Alcohol/week: 4.0 standard drinks of alcohol Types: 2 Cans of beer, 2 Shots of liquor per week Comment: Occasionally Drug use: No Patient's Medications New Prescriptions LOSARTAN (COZAAR) 100 MG TABLET Take 1 (one) tablet (100 mg total) by mouth daily . PREDNISONE (DELTASONE) 50 MG TABLET Take 1 tablet 13 hrs before testing, 1 tablet 7 hrs before testing and 1 hour before testing. Take last dose of Prednisone with Benadryl 50mg. . Previous Medications ASPIRIN 81 MG EC TABLET Take 1 (one) tablet (81 mg total) by mouth daily Reasons: on hold for surgery last dose 03/31. COENZYME Q10 10 MG CAPSULE Take 10 mg by mouth 2 (two) times a day . FLU VAC QV 2020,18YR UP,RC,PF, (FLUBLOK QUAD) SYRINGE Sign this order in conjunction with the immunization order to satisfy [place] Board [employer] Pharmacy Positive ID requirements for immunization orders. . ICOSAPENT ETHYL 1 GRAM CAP Take 2 (two) capsules (2 g total) by mouth 2 (two) times a day . LORATADINE (CLARITIN) 10 MG TABLET Take 1 (one) tablet (10 mg total) by mouth daily with breakfast . METFORMIN (GLUCOPHAGE) 500 MG TABLET Take 2 (two) tablets (1,000 mg total) by mouth 2 (two) times a day with meals Reasons: do not take dos. OMEGA-3 FATTY ACIDS-VITAMIN E 1,000 MG CAP Take 1 tablet by mouth daily Reasons: instructed to hold for surgery last dose 04/05. UNKNOWN Med Name: Allergy Shots Reasons: every month. Modified Medications Modified Medication Previous Medication FENOFIBRATE (TRICOR) 145 MG TABLET fenofibrate (TRICOR) 145 MG tablet Take 1 (one) tablet (145 mg total) by mouth daily Give with food . Take 1 (one) tablet (145 mg total) by mouth daily Give with food . ROSUVASTATIN (CRESTOR) 10 MG TABLET rosuvastatin (CRESTOR) 10 MG tablet Take 1 (one) tablet (10 mg total) by mouth nightly . Take 1 (one) tablet (10 mg total) by mouth nightly . Discontinued Medications No medications on file Allergies Allergen Reactions Ct: Iodinated Contrast- Oral And Iv Dye Melon Unknown Overview of Problems Addressed: Problem Hip Pain Hypertension Objective: Orders Placed This Encounter CT Abdomen Pelvis With And Without Contrast Lipid Panel fenofibrate (TRICOR) 145 MG tablet rosuvastatin (CRESTOR) 10 MG tablet losartan (Cozaar) 100 MG tablet predniSONE (DELTASONE) 50 MG tablet Follow Up Ordered: Return in about 1 year (around 08/27/2024). Cheyenne Lorenzana MD documented in this encounter [facility] 07-12-2023 History of Presen t illness Narrative Called pt - no answer, lmom notifying pt that orders for lipids, HA1C and CPK are in system. Told pt he could have checked at [place] facility prior to his appt. Told him to call back with any questions or concerns. documented in this encounter [facility] 03-05-2023 Telephone encounter Note If your insurance will pay for it I would consider Vascepa to help lower your triglycerides and get rid of the omega-3 fatty acid tab that you are taking. Tyson can you check on Vascepa. Thanks Results viewed by patient in SwingTime. He is willing to try Vascepa if affordable and if so, will stop omega-3. [facility] 03-05-2023 Miscellaneous Notes If your insurance will pay for it I would consider Vascepa to help lower your triglycerides and get rid of the omega-3 fatty acid tab that you are taking. Tyson can you check on Vascepa. Thanks Results viewed by patient in SwingTime. He is willing to try Vascepa if affordable and if so, will stop omega-3. ----- Message from Cheyenne Lorenzana MD sent at 03/04/2023 7:10 PM EDT ----- Your lipids look pretty darn good which is great news. Keep watching your diet to keep your triglycerides down. documented in this encounter [facility] 03-05-2023 Telephone encounter Note ----- Message from Cheyenne Lorenzana MD sent at 03/04/2023 7:10 PM EDT ----- Your lipids look pretty darn good which is great news. Keep watching your diet to keep your triglycerides down. [facility] 08-28-2022 History of Presen t illness Narrative [facility] [address] [facility] [address] [facility] [id number] Subjective: Lawrence Cristina is a 62 y.o. male seen in the office today for Follow-up (1 year follow up) HPI: Lawrence Cristina is a very pleasant 62 y.o. year old male who presents for a cardiology consultation who does have some nonobstructive coronary disease which were treating medically. His lipids have been an issue and his most recent lipid profile his triglycerides were elevated as well as his hemoglobin A1c. He seems be tolerating his rosuvastatin without difficulty as well as his Tricor. I discussed with him lowering his blood sugars will definitely help his triglycerides and that is what you are planning on doing at this time. I do not believe his leg weakness is related to his statin and Tricor as his CPKs were all normal. This probably more likely related to his back issues. I think his cardiac status seems stable and hopefully with continued physical therapy and improvement of his lower back issues he will be able to walk more and that should also help his blood sugar and triglycerides. Physical Examination: BP 135/84 (BP Location: Left arm, Patient Position: Sitting, BP Cuff Size: X-large Adult) Pulse 77 Ht 5' 7 Wt 102.6 kg (226 lb 1.6 oz) BMI 35.41 kg/m Physical Exam Vitals and nursing note reviewed. Cardiovascular: Rate and Rhythm: Normal rate and regular rhythm. No extrasystoles are present. Pulses: Carotid pulses are 2+ on the right side and 2+ on the left side. Radial pulses are 2+ on the right side and 2+ on the left side. Posterior tibial pulses are 2+ on the right side and 2+ on the left side. Pulmonary: Effort: Pulmonary effort is normal. Breath sounds: Normal breath sounds and air entry. I agree with the Review of Systems done during the patient visit by the MA. EKG: unchanged from previous tracings, normal sinus rhythm. Assessment & Plan: No problem-specific Assessment & Plan notes found for this encounter. Histories: Past Medical History: Diagnosis Date Allergic rhinitis Arthritis Asthma periodically uses inhalers none curently Chronic cough Complication of anesthesia slow to arouse also pt has woken up during surgeries Diabetes mellitus (HCC) well controlled with medication Diabetes mellitus, type 2 (HCC) History of cardiac cath 2015 results cc History of echocardiogram 2015 results cc Hyperlipidemia Kidney stone 04/2019 Nephrolithiasis Obstructive sleep apnea cpap Past Surgical History: Procedure Laterality Date CARDIAC CATHETERIZATION 11/25/2014 EF 55%, Mild, diffuse disease in Left main Luminal Irregularities 40 % proximal lesion in LAD Luminal Irregularities 30 % mid lesion in LAD Mild, diffuse disease in CIRC Luminal Irregularities 30 % proximal lesion in RCA Luminal Irregularities 40 % mid lesion in RCA HEMORRHOIDECTOMY 12/27/2003 LUMPECTOMY 10/14/1998 LEFT MODIFIED RADICAL NECK DISSECTION WITH SPARING OF THE 11TH CRANIAL NERVE. ORTHOPEDIC SURGERY Right knee scope meniscus REFRACTIVE SURGERY TONSILLECTOMY WISDOM TOOTH EXTRACTION Family History Problem Relation Age of Onset COPD Mother Osteoarthritis Mother Heart disease Father Pancreatic cancer Father Diabetes Father Type II Pancreatitis Father Arthritis Sister Diabetes Brother Type II Dementia Brother Heart disease Paternal Grandfather Social History Tobacco Use Smoking status: Some Days Types: Pipe, Cigars Passive exposure: Past Smokeless tobacco: Never Tobacco comments: Smokes occasional cigar Vaping Use Vaping Use: Never used Substance Use Topics Alcohol use: Yes Alcohol/week: 4.0 standard drinks Types: 2 Cans of beer, 2 Shots of liquor per week Comment: Occasionally Drug use: No Patient's Medications New Prescriptions No medications on file Previous Medications ASPIRIN 81 MG EC TABLET Take 1 (one) tablet (81 mg total) by mouth daily Reasons: on hold for surgery last dose 03/31. COENZYME Q10 10 MG CAPSULE Take 10 mg by mouth 2 (two) times a day . FLU VAC QV 2020,18YR UP,RC,PF, (FLUBLOK QUAD) SYRINGE Sign this order in conjunction with the immunization order to satisfy [place] Board of Pharmacy Positive ID requirements for immunization orders. . LORATADINE (CLARITIN) 10 MG TABLET Take 1 (one) tablet (10 mg total) by mouth daily with breakfast . METFORMIN (GLUCOPHAGE) 500 MG TABLET Take 2 (two) tablets (1,000 mg total) by mouth 2 (two) times a day with meals Reasons: do not take dos. OMEGA-3 FATTY ACIDS-VITAMIN E 1,000 MG CAP Take 1 tablet by mouth daily Reasons: instructed to hold for surgery last dose 04/05. UNKNOWN Med Name: Allergy Shots Reasons: every month. Modified Medications Modified Medication Previous Medication FENOFIBRATE (TRICOR) 145 MG TABLET fenofibrate (TRICOR) 145 MG tablet Take 1 (one) tablet (145 mg total) by mouth daily Give with food . Take 1 (one) tablet (145 mg total) by mouth daily Give with food . ROSUVASTATIN (CRESTOR) 10 MG TABLET rosuvastatin (CRESTOR) 10 MG tablet Take 1 (one) tablet (10 mg total) by mouth nightly . Take 1 (one) tablet (10 mg total) by mouth nightly . Discontinued Medications No medications on file Allergies Allergen Reactions Ct: Iodinated Contrast- Oral And Iv Dye Melon Unknown Overview of Problems Addressed: No problems updated. Objective: Orders Placed This Encounter Lipid Panel CPK Hemoglobin A1c coenzyme Q10 10 mg capsule fenofibrate (TRICOR) 145 MG tablet rosuvastatin (CRESTOR) 10 MG tablet Follow Up Ordered: Return in about 1 year (around 08/28/2023). Cheyenne Lorenzana MD Marine Equipment Sales Engineer: No documented in this encounter [facility] 08-28-2022 Instructions Tyson Ross RN - 08/28/2022 11:07 AM EST If you have any questions, please do not hesitate to call me at [phone]. Tyson Ross RN, BSN Nurse Acquisition Cost Estimator for Dr. Nuno Lorenzana [facility] [address] [place] [address] [address] [place] [address] documented in this encounter [facility] 07-27-2022 History of Presen t illness Narrative CONSULT NOTE Patient Name: Lawrence Cristina Admit Date: MR #: [id number] : 1960 Physicians: Macho Lombardi MD (Family); ReferringLavelle MD (Referring) Chief Complaint/Reason for Visit: Low back pain bilateral hip pain History of Present Illness: Lawrence Cristina is a 62 y.o. y/o male who complains of fluctuating pain back pain into the legs that worsens with walking and is alleviated with sitting. He tried aspirin and exercises regarding his hips. No significant conservative measures have yet tried and failed at this point he has no weakness. He says his pain has a fluctuate sometimes in the hips and the anterior thighs does sound like early neurogenic claudication by history. History: Past Medical History: Diagnosis Date Allergic rhinitis Arthritis Asthma periodically uses inhalers none curently Chronic cough Complication of anesthesia slow to arouse also pt has woken up during surgeries Diabetes mellitus (HCC) well controlled with medication Diabetes mellitus, type 2 (HCC) History of cardiac cath 2015 results cc History of echocardiogram 2015 results cc Hyperlipidemia Kidney stone 04/2019 Nephrolithiasis Obstructive sleep apnea cpap Past Surgical History: Procedure Laterality Date CARDIAC CATHETERIZATION 11/25/2014 EF 55%, Mild, diffuse disease in Left main Luminal Irregularities 40 % proximal lesion in LAD Luminal Irregularities 30 % mid lesion in LAD Mild, diffuse disease in CIRC Luminal Irregularities 30 % proximal lesion in RCA Luminal Irregularities 40 % mid lesion in RCA HEMORRHOIDECTOMY 12/27/2003 LUMPECTOMY 10/14/1998 LEFT MODIFIED RADICAL NECK DISSECTION WITH SPARING OF THE 11TH CRANIAL NERVE. ORTHOPEDIC SURGERY Right knee scope meniscus REFRACTIVE SURGERY WISDOM TOOTH EXTRACTION Family History Problem Relation Age of Onset Heart disease Father Pancreatic cancer Father Heart disease Paternal Grandfather COPD Mother Osteoarthritis Mother Diabetes Brother Insulin requiring Social History Socioeconomic History Marital status: Single Tobacco Use Smoking status: Never Passive exposure: Past Smokeless tobacco: Never Tobacco comments: Smokes occasional cigar Vaping Use Vaping Use: Never used Substance and Sexual Activity Alcohol use: Yes Comment: Occasionally Drug use: No Allergy Information: I have reviewed the patient's allergies. Ct: iodinated contrast- oral and iv dye Home Medications: Outpatient Medications as of 07/27/2022 Medication Sig aspirin 81 MG EC tablet Take 1 tablet by mouth daily Reasons: on hold for surgery last dose 03/31. fenofibrate (TRICOR) 145 MG tablet Take 1 (one) tablet (145 mg total) by mouth daily Give with food . flu vac qv 2020,18yr up,rc,PF, (FLUBLOK QUAD) syringe Sign this order in conjunction with the immunization order to satisfy [place] Board of Pharmacy Positive ID requirements for immunization orders. . loratadine (CLARITIN) 10 mg tablet Take 10 mg by mouth daily with breakfast . metFORMIN (GLUCOPHAGE) 500 MG tablet Take 2 tablets by mouth 2 (two) times a day with meals Reasons: do not take dos. omega-3 fatty acids-vitamin E 1,000 mg cap Take 1 tablet by mouth daily Reasons: instructed to hold for surgery last dose 04/05. rosuvastatin (CRESTOR) 10 MG tablet Take 1 (one) tablet (10 mg total) by mouth nightly . UNKNOWN Med Name: Allergy Shots Reasons: every month. Review of Systems: A twelve system ROS was reviewed with the patient today and is negative except for the symptoms noted in the HPI. These systems include constitutional, cardiovascular, respiratory, musculoskeletal, neurological, eyes, integumentary, allergic, hematologic, and gastrointestinal. Physical Examination: Vital Signs: Ht 5' 7 Wt 104.3 kg (230 lb) BMI 36.02 kg/m Neuro exam: Awake and alert, oriented to name, place, and time. Gaze conjugate, EOMI. PERRL @ 3mm. Speech clear and appropriate. Sensation intact and equal throughout to light touch and pain Lumbar exam: Motor strength 5/5 b/l hip flexors/knee flexion/knee extension/dorsiflexion/plantarf lexion/EHL. Sensation intact and equal throughout to light touch and pain Reflexes are 1+ and symmetric in the lower extremities Medical Decision Making: Data Reviewed and Analyzed: External Notes Review: Reviewed the patient's past medical history form with his medication reconciliation sheet and admission to an MRI scan of the lumbar spine that was done in November of this year Test Results: I personally reviewed the films and the reports with independent interpretation of the imaging studies. This shows advanced facet arthropathy with high-grade stenosis at L4-5 secondary to facet arthropathy and foraminal stenosis secondary to disc osteophyte complex. The facet is severely hypertrophied at both L4-5 and L5-S1 with bilateral foraminal stenosis at both of these levels. New tests ordered: Lumbar physical therapy Diagnosis, Including Number and Complexity of Problems Addressed lumbar stenosis Assessment and Plan: Radiographically I think surgery is a very reasonable neck step. This would likely require bilateral completion facetectomies to adequately decompress the nerve root complexes at both L4-5 and L5-S1. I discussed with him an L4-S1 laminectomy with bilateral facetectomy, posterior lateral arthrodesis, possible interbody fusion with pedicle screw instrumentation. This would hopefully alleviate some of his back and leg pain. He does have some intrinsic pain in the hips which may be localized to the hips. At this point he does not seem ready to commit to surgery which is understandable. I will start him on a course of physical therapy and I provided him with some literature to go through before considering surgery. He will let me know if he worsens or if he desires to proceed going forward. This consultation was generated by [employer] voice recognition software and as a result grammatical or spelling errors may occur using this program. Jass Espino MD [facility] [address] [place] [address] [place] [address] Office [phone] documented in this encounter [facility] 07-27-2022 History of Presen t illness Narrative CONSULT NOTE Patient Name: Lawrence Cristina Admit Date: MR #: [id number] : 1960 Physicians: Macho Lombardi MD (Family); ReferringLavelle MD (Referring) Chief Complaint/Reason for Visit: Low back pain bilateral hip pain History of Present Illness: Lawrence Cristina is a 62 y.o. y/o male who complains of fluctuating pain back pain into the legs that worsens with walking and is alleviated with sitting. He tried aspirin and exercises regarding his hips. No significant conservative measures have yet tried and failed at this point he has no weakness. He says his pain has a fluctuate sometimes in the hips and the anterior thighs does sound like early neurogenic claudication by history. History: Past Medical History: Diagnosis Date Allergic rhinitis Arthritis Asthma periodically uses inhalers none curently Chronic cough Complication of anesthesia slow to arouse also pt has woken up during surgeries Diabetes mellitus (HCC) well controlled with medication Diabetes mellitus, type 2 (HCC) History of cardiac cath 2014 results cc History of echocardiogram 2014 results cc Hyperlipidemia Kidney stone 04/2019 Nephrolithiasis Obstructive sleep apnea cpap Past Surgical History: Procedure Laterality Date CARDIAC CATHETERIZATION 11/25/2014 EF 55%, Mild, diffuse disease in Left main Luminal Irregularities 40 % proximal lesion in LAD Luminal Irregularities 30 % mid lesion in LAD Mild, diffuse disease in CIRC Luminal Irregularities 30 % proximal lesion in RCA Luminal Irregularities 40 % mid lesion in RCA HEMORRHOIDECTOMY 12/27/2003 LUMPECTOMY 10/14/1998 LEFT MODIFIED RADICAL NECK DISSECTION WITH SPARING OF THE 11TH CRANIAL NERVE. ORTHOPEDIC SURGERY Right knee scope meniscus REFRACTIVE SURGERY WISDOM TOOTH EXTRACTION Family History Problem Relation Age of Onset Heart disease Father Pancreatic cancer Father Heart disease Paternal Grandfather COPD Mother Osteoarthritis Mother Diabetes Brother Insulin requiring Social History Socioeconomic History Marital status: Single Tobacco Use Smoking status: Never Passive exposure: Past Smokeless tobacco: Never Tobacco comments: Smokes occasional cigar Vaping Use Vaping Use: Never used Substance and Sexual Activity Alcohol use: Yes Comment: Occasionally Drug use: No Allergy Information: I have reviewed the patient's allergies. Ct: iodinated contrast- oral and iv dye Home Medications: Outpatient Medications as of 07/27/2022 Medication Sig aspirin 81 MG EC tablet Take 1 tablet by mouth daily Reasons: on hold for surgery last dose 03/31. fenofibrate (TRICOR) 145 MG tablet Take 1 (one) tablet (145 mg total) by mouth daily Give with food . flu vac qv 2020,18yr up,rc,PF, (FLUBLOK QUAD) syringe Sign this order in conjunction with the immunization order to satisfy [place] Board [employer] Pharmacy Positive ID requirements for immunization orders. . loratadine (CLARITIN) 10 mg tablet Take 10 mg by mouth daily with breakfast . metFORMIN (GLUCOPHAGE) 500 MG tablet Take 2 tablets by mouth 2 (two) times a day with meals Reasons: do not take dos. omega-3 fatty acids-vitamin E 1,000 mg cap Take 1 tablet by mouth daily Reasons: instructed to hold for surgery last dose 04/05. rosuvastatin (CRESTOR) 10 MG tablet Take 1 (one) tablet (10 mg total) by mouth nightly . UNKNOWN Med Name: Allergy Shots Reasons: every month. Review of Systems: A twelve system ROS was reviewed with the patient today and is negative except for the symptoms noted in the HPI. These systems include constitutional, cardiovascular, respiratory, musculoskeletal, neurological, eyes, integumentary, allergic, hematologic, and gastrointestinal. Physical Examination: Vital Signs: Ht 5' 7 Wt 104.3 kg (230 lb) BMI 36.02 kg/m Neuro exam: Awake and alert, oriented to name, place, and time. Gaze conjugate, EOMI. PERRL @ 3mm. Speech clear and appropriate. Sensation intact and equal throughout to light touch and pain Lumbar exam: Motor strength 5/5 b/l hip flexors/knee flexion/knee extension/dorsiflexion/plantarf lexion/EHL. Sensation intact and equal throughout to light touch and pain Reflexes are 1+ and symmetric in the lower extremities Medical Decision Making: Data Reviewed and Analyzed: External Notes Review: Reviewed the patient's past medical history form with his medication reconciliation sheet and admission to an MRI scan of the lumbar spine that was done in November of this year Test Results: I personally reviewed the films and the reports with independent interpretation of the imaging studies. This shows advanced facet arthropathy with high-grade stenosis at L4-5 secondary to facet arthropathy and foraminal stenosis secondary to disc osteophyte complex. The facet is severely hypertrophied at both L4-5 and L5-S1 with bilateral foraminal stenosis at both of these levels. New tests ordered: Lumbar physical therapy Diagnosis, Including Number and Complexity of Problems Addressed lumbar stenosis Assessment and Plan: Radiographically I think surgery is a very reasonable neck step. This would likely require bilateral completion facetectomies to adequately decompress the nerve root complexes at both L4-5 and L5-S1. I discussed with him an L4-S1 laminectomy with bilateral facetectomy, posterior lateral arthrodesis, possible interbody fusion with pedicle screw instrumentation. This would hopefully alleviate some of his back and leg pain. He does have some intrinsic pain in the hips which may be localized to the hips. At this point he does not seem ready to commit to surgery which is understandable. I will start him on a course of physical therapy and I provided him with some literature to go through before considering surgery. He will let me know if he worsens or if he desires to proceed going forward. This consultation was generated by [employer] voice recognition software and as a result grammatical or spelling errors may occur using this program. Jass Espino MD [facility] [address] [place] [address] [place] [address] Office [phone] documented in this encounter [facility] 02-21-2022 Telephone encounter Note Patient left message that he needs refills for crestor and tricor sent to [facility]. Last OV 07/24/21 Recall for next OV [facility] 02-21-2022 Miscellaneous Notes Patient left message that he needs refills for crestor and tricor sent to [facility]. Last OV 07/24/21 Recall for next OV documented in this encounter [facility] 01-23-2021 History of Presen t illness Narrative [facility] [address] [facility] [address] [facility] [id number] Subjective: Lawrence Cristina is a 60 y.o. male seen in the office today for Follow-up HPI: Lawrence Cristina is a very pleasant 60 y.o. year old male who presents for a cardiology consultation who has known coronary disease and I recently saw his most recent lab work which showed his triglycerides to be over 800 and his HDLs to be quite low and his total cholesterol was quite high as well. His calculated LDL cholesterol was normal but I think with a high triglycerides is probably erroneous. From a cardiac standpoint he is asymptomatic but is sugars have been quite elevated with a hemoglobin A1c was approximately 8. He has not been watching his diet and not exercising as he should. For that reason I discussed with him that risk factors again be very important with daily exercise and he is following up with you later today for his diabetes. He stopped taking his lipid-lowering medications including Lipitor and TriCor. He was having muscle discomforts most likely related to the Lipitor. I plan on restarting him back on Crestor instead but will start at 10 mg daily. Also restart his TriCor try to get his triglycerides better. From a cardiac standpoint there is good data with Vascepta which I will try to get his insurance to pay instead of the fish oil he is presently on. His physical exam was unrevealing although his blood pressure was up a little bit but I have encouraged him to exercise more and watch his diet and see if that improves without adding new medications. I will plan on repeating his lipids and liver functions and a CPK in approximately 2 months. Hopefully by improving his blood sugars history triglycerides were improved as well. Thank you very much Physical Examination: BP 148/89 (BP Location: Right arm, Patient Position: Sitting, BP Cuff Size: Adult) Pulse 84 Ht 5' 7 Wt 104.7 kg (230 lb 14.4 oz) BMI 36.16 kg/m Physical Exam Vitals and nursing note reviewed. Cardiovascular: Rate and Rhythm: Normal rate and regular rhythm. Pulses: Carotid pulses are 2+ on the right side and 2+ on the left side. Radial pulses are 2+ on the right side and 2+ on the left side. Dorsalis pedis pulses are 2+ on the right side and 2+ on the left side. Heart sounds: Normal heart sounds. No murmur heard. No gallop. Pulmonary: Effort: Pulmonary effort is normal. Breath sounds: Normal breath sounds. I agree with the Review of Systems done during the patient visit by the MA. EKG: normal EKG, normal sinus rhythm, unchanged from previous tracings. Assessment & Plan: No problem-specific Assessment & Plan notes found for this encounter. Histories: Past Medical History: Diagnosis Date Allergic rhinitis Arthritis Asthma periodically uses inhalers none curently Chronic cough Complication of anesthesia slow to arouse also pt has woken up during surgeries Diabetes mellitus (HCC) well controlled with medication Diabetes mellitus, type 2 (HCC) History of cardiac cath 2015 results cc History of echocardiogram 2015 results cc Hyperlipidemia Kidney stone 04/2019 Nephrolithiasis Obstructive sleep apnea cpap Past Surgical History: Procedure Laterality Date CARDIAC CATHETERIZATION 11/25/2014 EF 55%, Mild, diffuse disease in Left main Luminal Irregularities 40 % proximal lesion in LAD Luminal Irregularities 30 % mid lesion in LAD Mild, diffuse disease in CIRC Luminal Irregularities 30 % proximal lesion in RCA Luminal Irregularities 40 % mid lesion in RCA HEMORRHOIDECTOMY 12/27/2003 LUMPECTOMY 10/14/1998 LEFT MODIFIED RADICAL NECK DISSECTION WITH SPARING OF THE 11TH CRANIAL NERVE. ORTHOPEDIC SURGERY Right knee scope meniscus REFRACTIVE SURGERY WISDOM TOOTH EXTRACTION Family History Problem Relation Age of Onset Heart disease Father Pancreatic cancer Father Heart disease Paternal Grandfather COPD Mother Osteoarthritis Mother Diabetes Brother Insulin requiring Social History Tobacco Use Smoking status: Never Smoker Smokeless tobacco: Never Used Vaping Use Vaping Use: Never used Substance Use Topics Alcohol use: Yes Comment: 2 drinks per week Drug use: No Patient's Medications New Prescriptions ICOSAPENT ETHYL (VASCEPA) 1 GRAM CAP Take 2 (two) capsules (2 g total) by mouth 2 (two) times a day . ROSUVASTATIN (CRESTOR) 10 MG TABLET Take 1 (one) tablet (10 mg total) by mouth nightly . Previous Medications ASPIRIN 81 MG EC TABLET Take 1 tablet by mouth daily Reasons: on hold for surgery last dose 03/31. FLU VAC QV 2020,18YR UP,RC,PF, (FLUBLOK QUAD) SYRINGE Sign this order in conjunction with the immunization order to satisfy [place] Board [employer] Pharmacy Positive ID requirements for immunization orders. . LORATADINE (CLARITIN) 10 MG TABLET Take 10 mg by mouth daily with breakfast . METFORMIN (GLUCOPHAGE) 500 MG TABLET Take 1 tablet by mouth 2 (two) times a day with meals Reasons: do not take dos. OMEGA-3 FATTY ACIDS-VITAMIN E 1,000 MG CAP Take 1 tablet by mouth daily Reasons: instructed to hold for surgery last dose 04/05. UNKNOWN Med Name: Allergy Shots Reasons: every month. Modified Medications Modified Medication Previous Medication FENOFIBRATE (TRICOR) 145 MG TABLET fenofibrate (TRICOR) 145 MG tablet Take 1 (one) tablet (145 mg total) by mouth Daily With Food . Take 1 (one) tablet (145 mg total) by mouth Daily With Food . Discontinued Medications No medications on file Allergies Allergen Reactions Ct: Iodinated Contrast- Oral And Iv Dye Overview of Problems Addressed: No problems updated. Objective: Orders Placed This Encounter Lipid panel Hepatic function panel CPK rosuvastatin (CRESTOR) 10 MG tablet fenofibrate (Tricor) 145 MG tablet icosapent ethyL (Vascepa) 1 gram cap Follow Up Ordered: No follow-ups on file. Cheyenne Lorenzana MD Review of Systems Constitution: Negative for diaphoresis, malaise/fatigue, weight gain and weight loss. HENT: Negative for hearing loss, nosebleeds and tinnitus. Eyes: Negative for blurred vision and visual disturbance. Cardiovascular: Negative for chest pain, claudication, cyanosis, dyspnea on exertion, irregular heartbeat, leg swelling, near-syncope, orthopnea, palpitations, paroxysmal nocturnal dyspnea and syncope. Respiratory: Negative for hemoptysis, shortness of breath and snoring. Endocrine: Negative for cold intolerance and heat intolerance. Hematologic/Lymphatic: Does not bruise/bleed easily. Skin: Negative for flushing, poor wound healing and rash. Musculoskeletal: Negative for back pain, muscle weakness and myalgias. Gastrointestinal: Negative for abdominal pain, change in bowel habit, melena, nausea and vomiting. Genitourinary: Negative for decreased libido and hematuria. Neurological: Negative for loss of balance and numbness. Psychiatric/Behavioral: Negative for memory loss. The patient is not nervous/anxious. documented in this encounter [facility] Evaluation note Diagnosis CAD in tetlin artery- [facility]lin artery [facility] Diagnosis CAD in tetlin artery- Primary [facility] Diagnosis Spinal stenosis, lumbar region, with neurogenic claudication- [facility] Diagnosis Low back pain, unspecified back pain laterality, unspecified chronicity, unspecified whether sciatica present- Primary [facility] Diagnosis Spinal stenosis, lumbar region, with neurogenic claudication- Primary [facility] Diagnosis Hyperlipidemia, unspecified hyperlipidemia type- Primary CAD in tetlin artery Type 2 diabetes mellitus without complication, without long-term current use of insulin (HCC) [facility] Diagnosis CAD in tetlin artery- Primary Hyperlipidemia, unspecified hyperlipidemia type Type 2 diabetes mellitus without complication, without long-term current use of insulin (HCC) [facility] CAD in tetlin artery- Primary [facility] Diagnosis Bilateral hip pain- Primary Pain in joint, pelvic region and thigh CAD in tetlin artery Hypertension, unspecified type Sexual dysfunction Psychosexual dysfunction, unspecified Hyperlipidemia, unspecified hyperlipidemia type Type 2 diabetes mellitus without complication, without long-term current use of insulin (HCC) [facility] Diagnosis Hyperlipidemia, unspecified hyperlipidemia type- Primary [facility] Diagnosis Hyperlipidemia, unspecified hyperlipidemia type- Primary [facility] Diagnosis Hyperlipidemia, unspecified hyperlipidemia type- Primary [facility] Diagnosis CAD in tetlin artery- Primary [facility] Diagnosis Type 2 diabetes mellitus without complication, without long-term current use of insulin (HCC)- Primary CAD in tetlin artery Hyperlipidemia, unspecified hyperlipidemia type [facility] Diagnosis Diabetic polyneuropathy associated with type 2 diabetes mellitus (HCC)- Primary Ingrowing toenail Ingrowing nail Onychocryptosis Ingrowing nail Pain in toe of left foot Pain in limb Pain in toe of right foot Pain in limb [facility] Diagnosis Calculus of kidney Diagnosis Encounter for imaging to screen for metal prior to MRI Special screening for other specified conditions Diagnosis Fourth cranial nerve palsy, right Diagnosis Elevated triglycerides with high cholesterol- Primary Mixed hyperlipidemia CAD in tetlin artery Elevated CPK Other nonspecific abnormal serum enzyme levels Diagnosis Calculus of kidney Calculus of ureter Advance Directives No Advanced Directives Records FoundDocuments on File Type Date Recorded Patient Fire Eater Expl anation Advance Directives and Livin g Will 03/31/2019 10:08 AM Documents on File Type Date Recorded Patient Fire Eater Expl anation Advance Directives and Livin g Will 03/23/2020 4:08 PM Documents on File Type Date Recorded Patient Fire Eater Expl anation Advance Directives and Livin g Will 03/23/2020 4:08 PM Documents on File Type Date Recorded Patient Fire Eater Expl anation Advance Directives and Livin g Will 05/05/2019 5:11 PM Reason for Referral Status Reason Specialty Diagnoses / Procedures Referre d By Contact Referred To Contact Closed Radiology Diagnoses Fourth cranial nerve palsy, right Procedures MR Brain/Orbit With And Without Contrast Collins Lara MD [address] [facility] [address] [place] [address] Specialty Diagnoses / Procedures Referred By Contac t Referred To Contact Physical Therapy Diagnoses Low back pain, unspecified back pain laterality, unspecified chronicity, unspecified whether sciatica present Mitchell Ardon PA-C [address] [facility] [address] [place] [address] OF SERVICE NOT IN SYSTEM Referral ID Status Reason Start Date Expiration Date Visits Requested Visits Authorized [id number] Authorized Specialty Services Required/Pat ient's Best Interest 2 07/30/2023 1 1 Specialty Diagnoses / Procedures Referred By Contac t Referred To Contact Cheyenne Lorenzana MD [address] [facility] [address] [place] [address] Referral ID Status Reason Start Date Expiration Date V isits Requested Visits Authorized [id number] Authorized 02/03/2023 03/04/2024 1 1 Specialty Diagnoses / Procedures Referred By Contac t Referred To Contact Radiology Diagnoses Sexual dysfunction Procedures CT Abdomen Pelvis With And Without Contrast Cheyenne Lorenzana MD [address] [facility] [address] [place] [address] Referral ID Status Reason Start Date Expiration Date V isits Requested Visits Authorized [id number] New Request 08/28/2023 08/27/2024 1 1 Summary Purpose Family History No Family History Records FoundNo Family History Records FoundNo Family History Records FoundNo Family History Records FoundNo Family History Records FoundNo Family History Records FoundNo Family History Records FoundNo Family History Records FoundNo Family History Records FoundNo Family History Records FoundNo Family History Records Found Instructions * Patient Instructions* Alondra Mann RN - 04/20/2019 10:21 AM EDT Stop taking Start taking Tricor - see med list. Repeat fasting labs in 6 weeks (Nothing to eat or drink after midnight and have labs drawn in the morning). Scheduling will call when it is time to set up your routine follow up appointment. If you would like to call them sooner, they may be reached at [phone]. Nursing: Toyin VERMA, direct phone line [phone] (leave detailed message if we are unable to answer) & fax [phone] Main Office Phone for Scheduling, Medical Records or other needs: [phone] Scheduling Direct line: [phone] documented in this encounter History of Present Illness * Cheyenne Lorenzana MD - 04/20/2019 10:28 AM EDT [facility] [address] [facility] [address] [facility] [id number] Subjective: Lawrence Cristina is a 58 y.o. male seen in the office today for Annual Exam HPI: Lawrence Cristina is a very pleasant 58 y.o. year old male who presents for a cardiology consultation who has known coronary disease which is not causing him any symptoms and has been treated medically. He had lipids done this past week and I noticed his triglycerides to be approaching 600 his total cholesterol was approximately 140 with low HDLs. He had problems previously when he was on TriCor and high-dose atorvastatin with elevated CPK. For that reason I stopped his TriCor and cut back the dose of his atorvastatin. Looking at these numbers I think is reasonable to go with TriCor by itselfand stop his statin and repeat his lipids in 6 to 8 weeks and check a CPK as well as liver functions at the same time. If his LDL cholesterol does increase I think we could always start him on a moderate dose statin instead of high-dose statin therapy. From a cardiac standpoint I think he is doing well and other than occasional palpitation which lasts for just a brief period of time he has had no symptoms. His physical exam is completely unremarkable as well. Hopefully he will continue to do well and hopefully his lipids and CPK results will be improved with this medication change. Thanks again. Physical Examination: BP 131/82 (BP Location: Right arm, Patient Position: Sitting, BP Cuff Size: X- large Adult) Pulse 80 Physical Exam Cardiovascular: Normal rate, regular rhythm and normal heart sounds. No extrasystoles are present. Exam reveals no gallop. No murmur heard. Pulses: Carotid pulses are 2+ on the right side, and 2+ on the left side. Radial pulses are 2+ on the right side, and 2+ on the left side. Posterior tibial pulses are 2+ on the right side, and 2+ on the left side. Pulmonary/Chest: Effort normal and breath sounds normal. Nursing note and vitals reviewed. I agree with the Review of Systems done during the patient visit by the MA. EKG: normal EKG, normal sinus rhythm, unchanged from previous tracings. Assessment & Plan: No problem-specific Assessment & Plan notes found for this encounter. Histories: Past Medical History: Diagnosis Date Allergic rhinitis Arthritis Asthma periodically uses inhalers none curently Chronic cough Complication of anesthesia slow to arouse also pt has woken up during surgeries Diabetes mellitus (HCC) well controlled with medication Diabetes mellitus, type 2 (HCC) History of cardiac cath 2015 results cc History of echocardiogram 2015 results cc Hyperlipidemia Nephrolithiasis Obstructive sleep apnea cpap Past Surgical History: Procedure Laterality Date CARDIAC CATHETERIZATION 11/25/2014 EF 55%, Mild, diffuse disease in Left main Luminal Irregularities 40 % proximal lesion in LAD Luminal Irregularities 30 % mid lesion in LAD Mild, diffuse disease in CIRC Luminal Irregularities 30 % proximal lesion in RCA Luminal Irregularities 40 % mid lesion in RCA HEMORRHOIDECTOMY 12/27/2003 LUMPECTOMY 10/14/1998 LEFT MODIFIED RADICAL NECK DISSECTION WITH SPARING OF THE 11TH CRANIAL NERVE. ORTHOPEDIC SURGERY Right knee scope meniscus WISDOM TOOTH EXTRACTION Family History Problem Relation Age of Onset Heart disease Father Pancreatic cancer Father Heart disease Paternal Grandfather COPD Mother Osteoarthritis Mother Diabetes Brother Insulin requiring Social History Tobacco Use Smoking status: Never Smoker Smokeless tobacco: Never Used Substance Use Topics Alcohol use: Yes Comment: 2 drinks per week Drug use: No Outpatient Medications as of 04/20/2019 Medication Sig aspirin 81 MG EC tablet Take 1 tablet by mouth daily Reasons: on hold for surgery last dose 03/31. loratadine (CLARITIN) 10 mg tablet Take 10 mg by mouth daily with breakfast . metFORMIN (GLUCOPHAGE) 500 MG tablet Take 1 tablet by mouth 2 (two) times a day with meals Reasons:do not take dos. omega-3 fatty acids-vitamin E 1,000 mg cap Take 1 tablet by mouth daily Reasons: instructed to holdfor surgery last dose 04/05. UNKNOWN Med Name: Allergy Shots Reasons: every month. [DISCONTINUED] atorvastatin (LIPITOR) 40 MG tablet TAKE 1 TABLET BY MOUTH DAILY (Patient taking differently: TAKE 1 TABLET BY MOUTH pm) fenofibrate (TRICOR) 145 MG tablet Take 1 (one) tablet (145 mg total) by mouth Daily With Food . [DISCONTINUED] ondansetron (ZOFRAN ODT) 4 MG disintegrating tablet Dissolve 1 (one) tablet (4 mg total) on top of tongue every 8 (eight) hours as needed for nausea . [DISCONTINUED] oxyCODONE-acetaminophen (PERCOCET) 5-325 mg per tablet Take 1 (one) tablet by mouth every 6 (six) hours as needed for pain . Allergies Allergen Reactions Ct: Iodinated Contrast- Oral And Iv Dye Overview of Problems Addressed: No problems updated. Objective: Orders Placed This Encounter CPK Lipid Panel Hepatic function panel fenofibrate (TRICOR) 145 MG tablet Follow Up Ordered: Return in about 1 year (around 04/20/2020) for CAD. Cheyenne Lorenzana MD * Luana Rivera MA - 04/20/2019 9:44 AM EDT Review of Systems Constitution: Positive for diaphoresis. Negative for malaise/fatigue, weight gain and weight loss. HENT: Negative for hearing loss, nosebleeds and tinnitus. Eyes: Negative for blurred vision and visual disturbance. Cardiovascular: Positive for irregular heartbeat. Negative for chest pain, claudication, cyanosis, dyspnea on exertion, leg swelling, near-syncope, orthopnea, palpitations, paroxysmal nocturnal dyspnea and syncope. Respiratory: Negative for hemoptysis, shortness of breath and snoring. Endocrine: Negative for cold intolerance and heat intolerance. Hematologic/Lymphatic: Does not bruise/bleed easily. Skin: Negative for flushing, poor wound healing and rash. Musculoskeletal: Negative for back pain, muscle weakness and myalgias. Gastrointestinal: Negative for abdominal pain, change in bowel habit, melena, nausea and vomiting. Genitourinary: Positive for hematuria. Negative for decreased libido. Neurological: Negative for loss of balance and numbness. Psychiatric/Behavioral: Negative for memory loss. The patient is not nervous/anxious. documented in this encounter Additional Source Comments Reason for Visit (unrecogniz ed section and content) Status Reason Specialty Diagnoses / Procedures Referre d By Contact Referred To Contact Closed Radiology Diagnoses Fourth cranial nerve palsy, right Procedures MR Brain/Orbit With And Without Contrast Collins Lara MD [address] [facility] [address] [place] [address] Reason Comments Flu Vaccine Reason Comments Annual Exam Reason Comments Follow-up Reason Onset Date Comments Medication Refill 02/21/2022 Reason Comments Back Pain MRI in EPIC Leg Pain Extremity Weakness Specialty Diagnoses / Procedures Referred By Contact Referred To Contact Neurological Surgery / Neurosurgery Diagnoses Radiculopathy, lumbar region ReferringLavelle MD [address] [place] [address] Jass Espino MD [address] [facility] [address] [place] [address] Referral ID Status Reason Start Date Expiration Date Visits Re quested Visits Authorized [id number] Closed 06/22/2022 06/22/2023 1 1 Reason Comments Follow-up 1 year follow up Reason Onset Date Comments blood work results 03/05/2023 Reason Comments Establish Care 1 year follow up. CA D Reason Onset Date Comments lipid results 07/06/2024 Reason Comments Medication Refill Reason Comments Follow-up 1 year Reason Comments New DM foot care Quick Note - Jackeline Ferreira, TECHNOLOGIST - 03/23/2020 4:30 PM EDT Miscellaneous Notes (unrecog nized section and content) Pt had MRI Brain/Orbit with 4th CN Protocol. Pt was unable to tolerate keeping mask on during exam. Jackeline Ferreira PPE worn includes - mask, gloves, eye protection ( goggles) Faustino Guadalupe PPE worn includes - mask, gloves documented in this encounter (unrecognized sect ion and content) No Status Records FoundNo Status Records FoundNo Status Records FoundNo Status Records FoundNo Status Records FoundNo Status Records FoundNo Status Records FoundNo Status Records FoundNo Status Records FoundNo Status Records FoundNo Status Records Found INFORMATION SOURCE (unrecogn ized section and content) DATE CREATED AUTHOR 07/21/2020 [facility] DATE CREATED AUTHOR AUTHOR'S ORGANIZ ATION 11/16/2021 [facility] DATE CREATED AUTHOR AUTHOR'S ORGANIZ ATION 01/13/2022 [facility] DATE CREATED AUTHOR AUTHOR'S ORGANIZ ATION 08/28/2023 [facility] DATE CREATED AUTHOR AUTHOR'S ORGANIZ ATION 09/08/2023 [facility] DATE CREATED AUTHOR AUTHOR'S ORGANIZ ATION 09/20/2024 [facility] DATE CREATED AUTHOR AUTHOR'S ORGANIZ ATION 11/23/2024 [facility] DATE CREATED AUTHOR AUTHOR'S ORGANIZ ATION 12/20/2024 [facility] DATE CREATED AUTHOR AUTHOR'S ORGANIZ ATION 01/16/2025 [facility] DATE CREATED AUTHOR AUTHOR'S ORGANIZ ATION 02/22/2025 [facility] DATE CREATED AUTHOR AUTHOR'S ORGANIZ ATION 04/18/2025 [facility] Care Teams (unrecognized sec tion and content) 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 Specialty Start Date End Date Macho Lombardi MD [address] [facility] [address] [place] [address] PCP - General 06/15/11 Macho Lombardi MD [address] [place] [address] PCP - LIZETH Attributed Provider - [facility] 09/09/14 09/08/50 Cheyenne Lorenzana MD [address] [place] [address] Consulting Physician Cardiology 01/23/21 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 Specialty Start Date End Date Macho Lombardi MD [address] [place] [address] PCP - General 06/15/11 Macho Lombardi MD [address] [facility] [address] [place] [address] PCP - LIZETH Attributed Provider - [facility] 09/09/14 09/08/50 Cheyenne Lorenzana MD [address] [facility] [address] [address] Consulting Physician Cardiology 01/23/21 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 Specialty Start Date End Date Macho Lombardi MD [address] [address] PCP - General 06/15/11 Macho Lombardi MD [address] [facility] [address] [place] [address] PCP - LIZETH Attributed Provider - [facility] 09/09/14 09/08/50 Cheyenne Lorenzana MD [address] [facility] [address] [address] Consulting Physician Cardiology 01/23/21 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 Specialty Start Date End Date Macho Lombardi MD [address] [place] [address] PCP - General 06/15/11 Macho Lombardi MD [address] [place] [address] PCP - LIZETH Attributed Provider - [facility] 09/09/14 09/08/50 Cheyenne Lorenzana MD [address] [place] [address] Consulting Physician Cardiology 01/23/21 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 Specialty Start Date End Date Macho Lombardi MD [address] [place] [address] PCP - General 06/15/11 Macho Lombardi MD [address] [place] [address] PCP - LIZETH Attributed Provider - [facility] 09/09/14 09/08/50 Cheyenne Lorenzana MD [address] [place] [address] Consulting Physician Cardiology 01/23/21 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 Specialty Start Date End Date Macho Lombardi MD [address] [place] [address] PCP - General 06/15/11 Macho Lombardi MD [address] [place] [address] PCP - LIZETH Attributed Provider - [facility] 09/09/14 09/08/50 Cheyenne Lorenzana MD [address] [place] [address] Consulting Physician Cardiology 01/23/21 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 Specialty Start Date End Date Macho Lombardi MD [address] [place] [address] PCP - General 06/15/11 Macho Lombardi MD [address] [place] [address] PCP - LIZETH Attributed Provider - [facility] 09/09/14 09/08/50 Cheyenne oLrenzana MD [address] [place], [place] [phone] Consulting Physician Cardiology 01/23/21 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 Specialty Start Date End Date Macho Lombardi MD [address] [place], [place] [phone] PCP - General 06/15/11 Macho Lombardi MD [address] [place], [place] [phone] PCP - LIZETH Attributed Provider - [facility] 09/09/14 09/08/50 Cheyenne Lorenzana MD [address] [place] [address] Consulting Physician Cardiology 01/23/21 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 Specialty Start Date End Date Macho Lombardi MD [address] [place] [address] PCP - General 06/15/11 Macho Lombardi MD [address] [place] [address] PCP - LIZETH Attributed Provider - [facility] 09/09/14 09/08/50 Cheyenne Lorenzana MD [address] [place] [address] Consulting Physician Cardiology 01/23/21 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 Specialty Start Date End Date Macho Lombardi MD [address] [place] [address] PCP - General 06/15/11 Macho Lombardi MD [address] [place] [address] PCP - LIZETH Attributed Provider - [facility] 09/09/14 09/08/50 Cheyenne Lorenzana MD [address] [place] [address] Consulting Physician Cardiology 01/23/21 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 Specialty Start Date End Date Macho Lombardi MD [address] [place] [address] PCP - General 06/15/11 Cheyenne Lorenzana MD [address] [place] [phone] Consulting Physician Cardiology 01/23/21 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 Specialty Start Date End Date Macho Lombardi MD [address] [place] [address] PCP - General 06/15/11 Cheyenne Lorenzana MD [address] [place] [address] Consulting Physician Cardiology 01/23/21 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 Specialty Start Date End Date Macho Lombardi MD [address] [place] [address] PCP - General 06/15/11 Cheyenne Lorenzana MD [address] [place] [address] Consulting Physician Cardiology 01/23/21 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 Specialty Start Date End Date Macho Lombardi MD [address] [place] [address] PCP - General 06/15/11 Cheyenne Lorenzana MD [address] [place] [address] Consulting Physician Cardiology 01/23/21 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 Specialty Start Date End Date Macho Lombardi MD [address] [place] [address] PCP - General 06/15/11 Cheyenne Lorenzana MD [address] [place] [address] Consulting Physician Cardiology 01/23/21 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 Specialty Start Date End Date Macho Lombardi MD [address] [place] [address] PCP - General 06/15/11 Cheyenne Lorenzana MD [address] [place] [address] Consulting Physician Cardiology 01/23/21 Source Comments (unrecognize d section and content) In the event this informatio n is protected by the Federal Confidentiality of Alcohol and Drug Abuse Patient Records regulations: The Federal rules restrict any use of the information to criminally investigate or prosecute any alcohol or drug abuse patient.[facility] FOR RECORDS PERTAINING TO PATIENTS WHO ARE OR HAVE BEEN ENROLLED IN A CHEMICAL DEPENDENCY/SUBSTANCEABUSE PROGRAM, SOME INFORMATION MAY BE OMITTED. This clinical summary was aggregated from multiple sources. Caution should be exercised in using it in the provision of clinical care. This summary normalizes information from multiple sources, and as a consequence, information in this document may materially change the coding, format and clinical context of patient data. In addition, data may be omitted in some cases. CLINICAL DECISIONS SHOULD BE BASED ON THE PRIMARY CLINICAL RECORDS. [employer] provides no warranty or guarantee of the accuracy or completeness of information in this document.
[2025-04-20 07:05] VITALS: BP 129/85; PULSE 91; RESP 16; TEMP 36.8; O2SAT 96; BMI 28.2
--- NOTE | 2025-04-20 07:19 | PCM.HP.STD ---
HPI - General General Date of Admission: 04/20/25 Date of Service: 04/20/25 Chief Complaint: colonoscopy HPI Narrative The patient is a 64-year-old male in need of a screening colonoscopy. He states his last colonoscopy was about 20 years ago. It sounds as though he did have polyps removed at that time. He had a stroke back in October his other physicians have recommended he get back on track in terms of having colonoscopy performed. He denies any GI issues or complaints. [facility] Medical History (Updated 04/16/25 @ 10:44 by Laura Corona) Wears glasses Walker as ambulation aid Arthritis Prostate disease Stroke/cerebrovascular accident Dietary restriction Personal history of colonic polyps Grade I diastolic dysfunction Grade I diastolic dysfunction Low HDL (under 40) Environmental and seasonal allergies Anxiety and depression Obstructive sleep apnea Colon polyps Obesity (BMI 30.0-34.9) Alcohol use Cigar smoker HTN (hypertension) Hyperlipidemia Diabetes mellitus type 2 with complications Home Medications ?Medication ?Instructions ?Recorded ?Last Taken ?Type Arthritis Pain Compound 3 click topical BID #120 GMS 11/24/24 Unknown Rx acetaminophen 325 mg tablet 650 mg (2 x 325 mg) PO Q6H PRN PRN 11/24/24 Unknown Rx Pain Score 1-10 #0 tabs loratadine 10 mg capsule (Allergy 10 mg PO DAILY #30 caps 11/24/24 Unknown Rx Relief (loratadine)) metformin 1,000 mg tablet 1,000 mg PO BID blood sugar #60 11/24/24 Unknown Rx tabs aspirin 81 mg tablet,delayed 81 mg PO QDAY 11/26/24 04/16/25 History release (Adult Aspirin Regimen) blood-glucose sensor (Dexcom G7 #12 ea 11/26/24 Unknown Rx Sensor device) blood-glucose,manager exchange,cont #1 ea 11/26/24 Unknown Rx (Dexcom G7 Wheel Molder) wheelchair with elevated leg rests #1 ea 11/26/24 Unknown Rx fenofibrate nanocrystallized 145 145 mg PO DAILY cholesterol #90 12/18/24 Unknown Rx mg tablet tabs insulin glargine-yfgn 100 unit/mL 34 unit (0.34 mL) subcut QHS #4 12/18/24 04/19/25 Rx (3 mL) subcutaneous pen pens potassium chloride 20 mEq 20 meq PO DAILY #90 tabs 12/18/24 Unknown Rx tablet,extended release sertraline 100 mg tablet 100 mg PO DAILY #90 tabs 12/18/24 Unknown Rx pen needle, diabetic 31 gauge x #100 ea 02/05/25 Unknown Rx 1/3 losartan 25 mg tablet 25 mg PO QDAY #90 tabs 02/11/25 04/19/25 Rx atorvastatin 40 mg tablet 40 mg PO QHS #90 tabs 02/16/25 Unknown Rx sennosides 8.6 mg-docusate sodium 2 tab PO Q OTHER DAY 03/29/25 Unknown History 50 mg tablet (Stimulant Laxative Plus) trazodone 50 mg tablet 100 mg PO QHS 03/29/25 Unknown History omega 9-yvj-xhg-fish oil 300 1 cap PO QDAY 03/30/25 Unknown History mg-1,000 mg capsule (Fish Oil) Allergy/AdvReac Type Severity Reaction Status Date / Time Iodinated Contrast Media Allergy Intermediate Hives Verified 04/20/25 07:02 (contrast dye - iodinated) cantaloupe Allergy Mild Hives Verified 04/20/25 07:02 mold Allergy Hives, Verified 04/20/25 07:02 sinus drainage Seasonal Allergies: Uncoded Allergy Hives, Verified 04/20/25 07:02 (environmental) sinus congestion, throat irritation rosuvastatin AdvReac Myalgia Verified 04/20/25 07:02 Family History Mother CVA (cerebral vascular accident) Heart disease Diabetes Brother CVA (cerebral vascular accident) Heart disease Diabetes type 1 Father Cancer pancreatic cancer Sister Heart disease Grandmother Diabetes type 1 Other Hypertension Surgical History S/P hemorrhoidectomy S/P nasal septoplasty H/O lumpectomy Hx of tonsillectomy Social History adopted: No household members: none housing: house number of children: 0 current occupational status: employed 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 substance use type: marijuana and other details: gummies diet: diabetic, low salt and other well-balanced diet: daily or most days caffeine: No do you feel safe at home: Yes Vital Signs Vital Signs Vital Signs: 04/20/25 07:05 04/20/25 07:05 Temperature 98.3 F Temperature Source Temporal Pulse Rate 91 Respiratory Rate 16 Respiratory Pattern Normal Blood Pressure 129/85 H Blood Pressure Mean 99 Blood Pressure Source Monitor Blood Pressure Position Sitting Blood Pressure Location Left Arm Pulse Ox 96 Oxygen Delivery Method Room Air Weight Weight: 175 lb Body Mass Index (BMI) 28.2 Physical Exam Const alert and oriented x3 Assessment & Plan Assessment/Plan (1) Colon cancer screening: PLAN: Plan colonoscopy today Charges/Coding Visit Charges Inpatient E&M: 95078 Init Hosp L2
[2025-04-20] MEDS: Lactated Ringers 1,000 ML 15 ML IV (07:28)
--- NOTE | 2025-04-20 07:30 | COLBX_PTH ---
PATIENT: LAWRENCE CRISTINA LOC: EN U#:[id number] AGE/SX: 64/M ROOM: RE04/20/[address]: Dr. Quinten Evans MD : 1960 BED: DIS: 04/20/2025 SPEC #: [id number] RECD: 04/20/25 10:19 STATUS: OMAR REInge #: [id number] SILVIA: 04/20/25 07:[address]: Quinten Evans DEPT: SURGICAL PATHOLOGY RECD BY: Khai Leon ENTERED: 04/20/25 14:53 SP TYPE: COLON BX OTHR DR: NEGRO Miller Tissues: A - Ascending colon Procedures: Surgery Specimen Level IV HEADER OPERATION: Colonoscopy with biopsy PRE-OP DIAGNOSIS: Colon cancer screening, polyp TISSUE SUBMITTED: A- Ascending colon polyp biopsy MICROSCOPIC DIAGNOSIS A. Ascending colon, polyp, biopsy: - Tubular adenoma. MICROSCOPIC DESCRIPTION Slides are reviewed. GROSS DESCRIPTION A. Received in fixative is one container labeled with the patient's name and designated Ascending colon polyp biopsy. The specimen consists of three irregular fragments of light uribe soft tissue that measure 0.2 to 0.3 cm. The specimen is totally submitted in one cassette. NE 04/20/2025 CPT:46648
--- NOTE | 2025-04-20 07:30 | PCM.PRE.AN2 ---
ASA Classification* ASA Classification ASA Classification: 2 Assessment & Plan Anesthesia* Anesthesia Assessment Anesthesia Assessment: Discussed sedation and/or anesthesia options, risks, benefits, and alternatives with patient/parents/legal guardian/POA. Questions invited. The patient/parents/legal guardian/POA seems to understand and agrees to proceed with anesthesia plan. Reviewed the physical assessment, medical history, allergy history and patient home medications list prior to surgery/procedure/anesthetic and documented any changes. Performed airway and anesthesia risk assessments. Anesthesia Type Anesthesia Type: MAC History Source History Obtained from:: Patient and Chart Anesthesia Focused Assessment* Temperature: 98.3 F Pulse Rate: 91 Blood Pressure: 129/85 Respiratory Rate: 16 Pulse Ox: 96 Oxygen Delivery Method: Room Air Airway Assessment Mouth opens: >3 cm Mallampati Score: IV Teeth Condition: Caps/Crowns (Patient has a couple of crowns. They are tight.) and Missing (Missing 1 molar.) Neck Range of motion (ROM): Limited ROM (Slight Decrease) Labs Anesthesia Preop lab: CBC WBC 8.6 K/mm3 (4.4-11.0) 02/11/25 14:08 02/11/25 RBC 4.53 M/mm3 (4.6-6.2) L 02/11/25 14:08 02/11/25 Hgb 13.9 g/dL (13.0-16.5) 02/11/25 14:08 02/11/25 Hct 41.7 % (40-54) 02/11/25 14:08 02/11/25 Plt Count 320 K/mm3 (150-450) 02/11/25 14:08 02/11/25 CHEMISTRY Potassium 4.2 mmol/L (3.3-5.1) 02/11/25 14:08 02/11/25 Sodium 140 mmol/L (133-145) 02/11/25 14:08 02/11/25 Magnesium 2.1 mg/dL (1.5-2.2) 11/24/24 05:15 11/24/24 Phosphorus 3.7 mg/dL (2.7-4.5) 11/24/24 05:15 11/24/24 BUN 18 mg/dL (4-19) 02/11/25 14:08 02/11/25 Creatinine 0.77 mg/dL (0.70-1.20) 02/11/25 14:08 02/11/25 Glucose 108 mg/dL (70-99) H 02/11/25 14:08 02/11/25 POC Glucose 105 mg/dL (74-106) 11/24/24 21:42 11/24/24 COAG PT 13.2 SECONDS (11.7-14.9) 10/14/24 12:59 10/14/24 Pre-Assessment Diagnosis/Proposed Procedure Planned Operative Procedure(s): Colonoscopy Anesthesia History 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 When Was Last Pacemaker Check QUESTION #4 FULL TEXT: You/Your Family Experience fever (hyperthermia) with Anesthesia Last Oral Intake Last Oral intake: Last Oral Intake NPO since 00:00 04/20/25 07:05 Meds taken in AM with sips of water? Meds patient instructed to take am of surgery PONV PONV - automatic brine mixer operator: PONV - automatic brine mixer operator Female No 04/16/25 10:44 HX of Motion Sickness No 04/16/25 10:44 HX of N/V After Surgery No 04/16/25 10:44 Non-Smoker Yes 04/16/25 10:44 Duration of Surgery greater No 04/16/25 10:44 than 60 minutes Number of Risk Factors 1 04/16/25 10:44 PONV Score Low Risk 04/16/25 10:44 Height & Weight Height & Weight: Anesthesia: Height & Weight Height 5 ft 6 in 04/20/25 07:05 Weight: 79.379 kg 04/20/25 07:05 Body Mass Index (BMI) 28.2 04/20/25 07:05 Respiratory Assessment Respiratory Assessment - automatic brine mixer operator: Respiratory Tract Infection Hx - automatic brine mixer operator Hx Respiratory Tract Infection No 04/16/25 10:44 STOP Sleep Apnea STOP Sleep Apnea - automatic brine mixer operator: STOP Sleep Apnea - automatic brine mixer operator Hx Hypertension Yes 04/16/25 10:44 Hx Sleep Apnea Yes 04/16/25 10:44 CPAP Yes 04/16/25 10:44 BIPAP No 04/16/25 10:44 Do you snore loudly (louder than talking or can be heard Do you often feel tired/ fatigued/ sleepy during daytime? Has anyone observed you stop breathing during sleep? STOP Results Positive 04/16/25 10:44 QUESTION #5 FULL TEXT : Do you snore loudly (louder than talking or can be heard through closed doors)? 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 Specify any problems Hx of Preganancy in last 3 N/A 04/16/25 10:44 Months Nurse Filling Out Transfusion JZOLLINGE 04/16/25 10:44 & Questions: Date: 04/16/25 04/16/25 10:44 Time: 10:46 04/16/25 10:44 Patient unable to answer at this time (ie. confused, unrespo /Reproduction History /Reproductive History - automatic brine mixer operator: /Reproductive Hx- automatic brine mixer operator Hx Now No 04/16/25 10:44 Gestational Age (in weeks): EDC: Hx Hx Para Hx Section SAB No 04/16/25 10:44 Active Medications Active Medications: Current Medications Generic Name Dose Route Start Last Admin Trade Name Freq PRN Reason Stop Dose Admin Lactated Ringer's 1,000 mls @ 15 mls/hr 04/20/25 06:45 04/20/25 07:28 IV 15 mls/hr .Q48H HARDY Administration [facility] Medical History Wears glasses Walker as ambulation aid Arthritis Prostate disease Stroke/cerebrovascular accident Dietary restriction Personal history of colonic polyps Grade I diastolic dysfunction Grade I diastolic dysfunction Low HDL (under 40) Environmental and seasonal allergies Anxiety and depression Obstructive sleep apnea Colon polyps Obesity (BMI 30.0-34.9) Alcohol use Cigar smoker HTN (hypertension) Hyperlipidemia Diabetes mellitus type 2 with complications Home Medications ?Medication ?Instructions ?Recorded ?Last Taken ?Type Arthritis Pain Compound 3 click topical BID #120 GMS 11/24/24 Unknown Rx acetaminophen 325 mg tablet 650 mg (2 x 325 mg) PO Q6H PRN PRN 11/24/24 Unknown Rx Pain Score 1-10 #0 tabs loratadine 10 mg capsule (Allergy 10 mg PO DAILY #30 caps 11/24/24 Unknown Rx Relief (loratadine)) metformin 1,000 mg tablet 1,000 mg PO BID blood sugar #60 11/24/24 Unknown Rx tabs aspirin 81 mg tablet,delayed 81 mg PO QDAY 11/26/24 04/16/25 History release (Adult Aspirin Regimen) blood-glucose sensor (Dexcom G7 #12 ea 11/26/24 Unknown Rx Sensor device) blood-glucose,hatch boss,cont #1 ea 11/26/24 Unknown Rx (Dexcom G7 Comber Operator) wheelchair with elevated leg rests #1 ea 11/26/24 Unknown Rx fenofibrate nanocrystallized 145 145 mg PO DAILY cholesterol #90 12/18/24 Unknown Rx mg tablet tabs insulin glargine-yfgn 100 unit/mL 34 unit (0.34 mL) subcut QHS #4 12/18/24 04/19/25 Rx (3 mL) subcutaneous pen pens potassium chloride 20 mEq 20 meq PO DAILY #90 tabs 12/18/24 Unknown Rx tablet,extended release sertraline 100 mg tablet 100 mg PO DAILY #90 tabs 12/18/24 Unknown Rx pen needle, diabetic 31 gauge x #100 ea 02/05/25 Unknown Rx 1/3 losartan 25 mg tablet 25 mg PO QDAY #90 tabs 02/11/25 04/19/25 Rx atorvastatin 40 mg tablet 40 mg PO QHS #90 tabs 02/16/25 Unknown Rx sennosides 8.6 mg-docusate sodium 2 tab PO Q OTHER DAY 03/29/25 Unknown History 50 mg tablet (Stimulant Laxative Plus) trazodone 50 mg tablet 100 mg PO QHS 03/29/25 Unknown History omega 0-xun-ksk-fish oil 300 1 cap PO QDAY 03/30/25 Unknown History mg-1,000 mg capsule (Fish Oil) Allergy/AdvReac Type Severity Reaction Status Date / Time Iodinated Contrast Media Allergy Intermediate Hives Verified 04/20/25 07:02 (contrast dye - iodinated) cantaloupe Allergy Mild Hives Verified 04/20/25 07:02 mold Allergy Hives, Verified 04/20/25 07:02 sinus drainage Seasonal Allergies: Uncoded Allergy Hives, Verified 04/20/25 07:02 (environmental) sinus congestion, throat irritation rosuvastatin AdvReac Myalgia Verified 04/20/25 07:02 Family History Mother CVA (cerebral vascular accident) Heart disease Diabetes Brother CVA (cerebral vascular accident) Heart disease Diabetes type 1 Father Cancer pancreatic cancer Sister Heart disease Grandmother Diabetes type 1 Other Hypertension Surgical History S/P hemorrhoidectomy S/P nasal septoplasty H/O lumpectomy Hx of tonsillectomy Social History adopted: No household members: none housing: house number of children: 0 current occupational status: employed 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 substance use type: marijuana and other details: gummies diet: diabetic, low salt and other well-balanced diet: daily or most days caffeine: No do you feel safe at home: Yes Review of Systems (Anesthesia) ROS Narrative System reviewed and no additional complaints, except as documented.
[2025-04-20 07:36] VITALS: BP 129/85; PULSE 91; RESP 16; TEMP 36.8; O2SAT 96
[2025-04-20 08:15] VITALS: BP 107/61; BP 129/85; PULSE 67; RESP 16; TEMP 36.2; O2SAT 100
--- NOTE | 2025-04-20 08:17 | OP.PROVAT_ITS ---
04/20/2025 NEGRO Miller [address] [phone] Re : Colonoscopy procedure for Nils Duarte Dear Mr. Barfield This procedure was performed on Sunday, April 20, 2025. My impressions and recommendations are as follows: Impressions : - Non-bleeding internal hemorrhoids. - One 4 mm polyp in the ascending colon, removed with a cold biopsy forceps. Resected and retrieved. - The examination was otherwise normal on direct and retroflexion views. Recommendations : - Discharge patient to home (ambulatory). - High fiber diet. - Await pathology results. - Repeat colonoscopy in 5 years for surveillance. - Return to my office PRN. - Continue present medications. My findings are described in the full procedure note, which is enclosed. If I can be of further assistance, please feel free to contact me at . Sincerely, Quinten Evans MD 04/20/2025 8:16:44 AM This report has been signed electronically.
--- NOTE | 2025-04-20 08:17 | OP.COLON_ITS ---
Patient Name: Nils Duarte Procedure Date: 04/20/2025 7:25 AM Date of : 1960 Age: 64 Procedure: Colonoscopy Indications: High risk colon cancer surveillance: Personal history of colonic polyps Providers: Quinten Evans MD Referring MD: NEGRO Miller Medicines: Monitored Anesthesia Care Patient Profile: Refer to note in patient chart for documentation of history and physical. Last Colonoscopy: more than 10 years ago. Complications: No immediate complications. Estimated blood loss: Minimal. Procedure: Pre-Anesthesia Assessment: - Prior to the procedure, a History and Physical was performed, and patient medications and allergies were reviewed. The patient's tolerance of previous anesthesia was also reviewed. The risks and benefits of the procedure and the sedation options and risks were discussed with the patient. All questions were answered, and informed consent was obtained. Prior Anticoagulants: The patient has taken no anticoagulant or antiplatelet agents. ASA Grade Assessment: III - A patient with severe systemic disease. After reviewing the risks and benefits, the patient was deemed in satisfactory condition to undergo the procedure. After I obtained informed consent, the scope was passed under direct vision. Throughout the procedure, the patient's blood pressure, pulse, and oxygen saturations were monitored continuously. The adult colonoscope was introduced through the anus and advanced to the cecum, identified by appendiceal orifice and ileocecal valve. The ileocecal valve, appendiceal orifice, and rectum were photographed. The entire colon was well visualized. The colonoscopy was performed without difficulty. The patient tolerated the procedure well. The quality of the bowel preparation was adequate. Moderate Sedation: See the other procedure note for documentation of moderate sedation with intraservice time. Scope In: 7:47:23 AM Scope Withdrawal Time 0 hours 9 minutes 5 seconds Scope Out: 8:09:24 AM Total Procedure Duration Time 0 hours 22 minutes 1 second Findings: The perianal and digital rectal examinations were normal. Non-bleeding internal hemorrhoids were found during retroflexion. The hemorrhoids were moderate. A 4 mm polyp was found in the ascending colon. The polyp was semi-sessile. The polyp was removed with a cold biopsy forceps. Resection and retrieval were complete. Verification of patient identification for the specimen was done by the nurse using the patient's name, date and medical record number. Estimated blood loss was minimal. The exam was otherwise without abnormality on direct and retroflexion views. Impression: - Non-bleeding internal hemorrhoids. - One 4 mm polyp in the ascending colon, removed with a cold biopsy forceps. Resected and retrieved. - The examination was otherwise normal on direct and retroflexion views. Recommendation: - Discharge patient to home (ambulatory). - High fiber diet. - Await pathology results. - Repeat colonoscopy in 5 years for surveillance. - Return to my office PRN. - Continue present medications. Procedure Code(s): --- Professional --- 20514, Colonoscopy, flexible; with biopsy, single or multiple Diagnosis Code(s): --- Professional --- Z86.010, Personal history of colonic polyps D12.2, Benign neoplasm of ascending colon K64.8, Other hemorrhoids CPT copyright 2021 [employer]. All rights reserved. The codes documented in this report are preliminary and upon senior telecommunications specialist review may be revised to meet current compliance requirements. Quinten Evans MD 04/20/2025 8:16:44 AM This report has been signed electronically. Number of Addenda: 0 Note Initiated On: 04/20/2025 7:25 AM
--- NOTE | 2025-04-20 08:19 | PCM.POST.ANE ---
Anesthesia: Postop Eval I Current Vital Signs Temperature: 97.2 F Pulse Rate: 72 Blood Pressure: 107/61 Respiratory Rate: 16 Pulse Ox: 100 Oxygen Delivery Method: Room Air Assessment Airway patent: Yes Spontaneous unlabored respirations: Yes Mental status: Asleep nausea: No Vomiting: No Anesthesia Complication: No Fluid Hydration Crystalloid volume administer (ml): 700 Total IV fluid infused: 700 Progress Note Anesthesia document: Postop Eval 1 completed: Yes
[2025-04-20 08:20] VITALS: BP 107/61; BP 129/85; BP 94/53; PULSE 72; PULSE 73; RESP 16; TEMP 36.2; O2SAT 100; O2SAT 96
[2025-04-20 08:25] VITALS: BP 129/85; BP 96/52; PULSE 69; RESP 16; TEMP 36.2; O2SAT 100
[2025-04-20 08:35] VITALS: BP 129/85
--- NOTE | 2025-04-20 12:31 | PCM.POSTANE2 ---
Anesthesia Postop Eval I Sum Postop Eval Completion status Anesthesia document: Postop Eval 1 completed: Yes Anesthesia Postop Eval I Summary Anesthesia Postop Eval I Summary: Anesthesia Postop Eval I: Assessment Summary Airway patent Yes 04/20/25 08:20 [email or web address] Spontaneous unlabored Yes 04/20/25 08:20 [email or web address] respirations Mental status Asleep 04/20/25 08:20 [email or web address] nausea No 04/20/25 08:20 [email or web address] Vomiting No 04/20/25 08:20 [email or web address] Anesthesia Postop Eval I: Fluid Summary Crystalloid volume administer 700 04/20/25 08:20 [email or web address] (ml) Colloids volume administered ( ml) Blood Product volume administered (ml) Total IV fluid infused 700 04/20/25 08:20 [email or web address] Anesthesia Postop Eval I: Summary Notes Anesthesia Complication No 04/20/25 08:20 [email or web address] Anesthesia Complication Comment: Post-operative progress note Anesthesia: Postop Eval II Evaluation Mental status: Awake and Calm Pain Level: 0 nausea: No Vomiting: No Complications Anesthesia Complication: No
== END 2025-04-20 09:01 | disposition home or self-care (01) ==
LOC: EN 06:44 → AC 06:46
PROVIDERS: PCP Physician Assistant; Referring Provider Physician Assistant; Visit Provider Surgery
PROC: 0DJD8ZZ Inspection of Lower Intestinal Tract, Via Natural or Artificial Opening Endoscopic (ICD-10-PCS; CPT 45378; principal; 2025-04-20 07:25)
DX: Z12.11 Encounter for screening for malignant neoplasm of colon (principal); Z79.4 Long term (current) use of insulin; E11.9 Type 2 diabetes mellitus without complications; I10 Essential (primary) hypertension; Z86.73 Personal history of transient ischemic attack (TIA), and cerebral infarction without residual deficits; E78.5 Hyperlipidemia, unspecified; Z79.82 Long term (current) use of aspirin; K64.8 Other hemorrhoids; Z86.0100 Personal history of colon polyps, unspecified; D12.2 Benign neoplasm of ascending colon; F17.290 Nicotine dependence, other tobacco product, uncomplicated
CPT/HCPCS: 45380; 82962; 88305; J2405

== ENCOUNTER → 2025-05-14 | Outpatient (CLI) | payer OTHER, SELFPAY ==
[2025-05-14 15:34] LABS: Hematocrit 41.0 % (40-54); Hemoglobin 13.2 g/dL (13.0-16.5); Immature Granulocytes Count 0.030 X10^3/uL (0.0-0.0); Mean Corp Hgb Conc 32.2 g/dL (32-36); Mean Corpuscular Volume 95.3 fL (80-94); Mean Platelet Vol. 10.1 fl (6.2-12.0); NRBC Flagged by Analyzer 0 % (0-5); Platelet Count 299 K/mm3 (150-450); RBC Distribution Width CV 12.9 % (11.6-14.6); RBC Distribution Width SD 44.4 fl (35.1-43.9); Red Blood Count 4.30 M/mm3 (4.6-6.2); White Blood Count 7.5 K/mm3 (4.4-11.0)
[2025-05-14 15:57] LABS: AST(SGOT) 17 U/L (<=37); Alanine Aminotransfer ALT/SGPT 11 U/L (<=46); Albumin, Serum 4.3 g/dL (3.4-4.8); Alkaline Phosphatase 47 U/L (40-129); Anion Gap 10 (5-15); BUN 21 mg/dL (4-19); BUN/Creat Ratio 29.7 RATIO (10-20); Calcium,Total 9.9 mg/dL (7.6-11.0); Carbon Dioxide 26.1 mmol/L (21.0-32.0); Chloride 105 mmol/L (98-108); Cholesterol 100 mg/dL (<=200); Globulin 2.7 g/dL (2.2-4.2); Glucose 138 mg/dL (70-99); Low Density Lipoprotein Calc. 41 mg/dL; PSA,Total - Annual Screen 1.26 ng/mL (0.02-4.00); Potassium 4.2 mmol/L (3.3-5.1); Triglycerides 105 mg/dL; Very Low Density Lipoprotein 21 mg/dL (5-40); cholesterol:hdl ratio screen 2.64
--- OUTSIDE RECORDS SUMMARY | 2025-05-14 19:58 | XMS RPT_ITS | CCD ---
Author Organization [facility] RECREATIONAL THERAPY TECHNICIAN [facility] Care Team Providers Care Hydrology Technician Name Role Phone Macho Lombardi Primary Care Provider Macho Lombardi Unavailable [phone] MACHO LOMBARDI Primary Care Unavail able Macho Lombardi Primary Care Provider Macho Lombardi Unavailable Macho Lombardi MD Primary Care Provide r Macho Lombardi MD Unavailable Macho Lombardi MD Primary Care Provide r Macho Lombardi MD Unavailable Cheyenne Lorenzana MD Unavailable [phone] Cheyenne Lorenzana MD Unavailable Macho Lombardi MD Unavailable MACHO LOMBARDI Attending Unavail able MACHO LOMBARDI Referring Unavail able MACHO LOMBARDI Primary Care Unavail able Macho Lombardi MD Primary Care Provide r Cheyenen Lorenzana MD Unavailable Macho Lombardi MD Unavailable Macho Lombardi MD Primary Care Provide r Cheyenne Lorenzana MD Unavailable [phone] Macho Lombardi MD Unavailable MACHO LOMBARDI Primary Care Unavail able BREE, MACHO GUTIERREZ Primary Care Unavail able CHEYENNE LORENZANA Referring Unavailabl e KANDER, CHEYENNE ZAVALA Attending Unavailabl e DAVAKIS, MACHO GUTIERREZ Primary Care Unavail able PHYSICIAN, NOT RECORDED Primary Care Unavaila ble SEMENTI DO, VERO KING Attending Unava ilable Unavailable Primary Care Provider Unavailabl e SELF Referring Unavailable TESTRAKE, MARY Attending Unavailable TESTRAKE, MARY Referring Unavailable DAVMACHO FLORES Primary Care Unavail able KANRADHA, CHEYENNE ZAVALA Attending Unavailabl e KANDER, CHEYENNE ZAVALA Attending Unavailabl e DAVAKIS, MACHO GUTIERREZ Primary Care Unavail able DAVMARK, MACHO GUTIERREZ Primary Care Unavail able CORINA, CHEYENNE ZAVALA Attending Unavailabl e DAVAKIS, MACHO Attending Unavailable DAVAKIS, MACHO Attending Unavailable BREE, MACHO Attending Unavailable SemenVero ratliff Attending Unavaila ble Sementi, Vero King Referring Unavaila ble Wayt PA, Mary Attending Unavailable Wayt PA, Mary Referring Unavailable Wayt PA, Mary Primary Care Unavailable Wayt PA, Mary Attending Unavailable Wayt PA, Mary Referring Unavailable Wayt PA, Mary Primary Care Unavailable Quinten Evans Attending Unavailable Wayt PA, Mary Referring Unavailable Wayt NEGRO, Mary Primary Care Unavailable Cassie Neves Attending Unavailable Wayt PA, Mary Referring Unavailable Wayt PA, Mary Primary Care Unavailable Wayt NEGRO, Mary Primary Care Unavailable Semengaudencio, Vero King Referring Unavaila ble Max Hill Attending Unavailable SemenVero ratliff Admitting Unavaila ble Semengaudencio, eVro King Attending Unavaila ble LeukhardNoel rodriguez Primary Care Unavailable Semengaudencio, Vero King Consulting Unavaila ble BorCassie munoz Attending Unavailable Sergio, Amar[place] Attending Unavailable Care Physician, No Primary Primary Care Unava ilable Quinten Evans Attending Unavailable Lico TOM, Mary Primary Care Unavailable Noel Ramirze Primary Care Unavailable Noel Ramirez Referring Unavailable Wayjennifer TOM, Mary Attending Unavailable Mali Ugarte Admitting Unavailable Viet Boyce Attending Unavailable Rex Mccollum Consulting Unavailable Alexis Lainez Referring Unavailable Care Physician, No Primary Primary [...] Mohamed Consulting Unavailable Zaghlouleh, Mhd Ernesto Consulting UnavailDawson Suero Consulting Unavailable Cochran, Rami Consulting Unavailable Lamar Mcgarryhil Consulting Unavailable Florence Melchor Consulting Unavailable Hanadele, Yousef Consulting Unavailable Torito Mali Consulting Unavailable Viet Boyce Consulting Unavailable Wayt PA, Mary Attending Unavailable Wayt PA, Mary Referring Unavailable Wayt PA, Mary Primary Care Unavailable Vero Ryder Admitting Unavaila isaac Ryder, Vero King Attending Unavaila Noel Bermudez Primary Care Unavailable Mali Ugarte Admitting Unavailable Viet Boyce Attending Unavailable Rex Mccollum Consulting Unavailable Noel Ramirez Primary Care Unavailable Alexis Lainez Referring Unavailable Adeli, Amir Consulting Unavailable Hinduja, Sarah Consulting Unavailable Ej, Teressa Consulting Unavailable Zha, Luisa Consulting Unavailable Bety, Ruddy Consulting Unavailable Cara, Almaz Consulting Unavailable Bittar, Horace Consulting Unavailable Elliot Tan Consulting Unavailable Jatin Smith Consulting Unavailable Lalitha Perdue Consulting Unavailable Mary Ibarra Consulting Unavailable Pamella Baptiste Consulting Unavailable Ridha, Humairaamed Consulting Unavailable Zaghlouleh, Mhd Ernesto Consulting UnavailDawson Suero Consulting Unavailable Cocharn, Rami Consulting Unavailable Zeferino, Nba Consulting Unavailable Florence Melchor Consulting Unavailable Hannagino, Yousef Consulting Unavailable Torito, Mali Consulting Unavailable Viet Boyce Attending Unavailable Quinten Evans Attending Unavailable Wayt PA, Mary Referring Unavailable Wayt PA, Mary Primary Care Unavailable Mitchell Sheth Attending Unavailable Wayt PA, Mary Referring Unavailable Wayt PA, Mary Primary Care Unavailable Wayt PA, Mary Primary Care Unavailable Carmel Ross Attending Unavailable Wayt PA, Mary Primary Care Unavailable Wayt PA, Mary Attending Unavailable Wayt PA, Mary Referring Unavailable Torito, Mali Consulting Unavailable Mali Ugarte Attending Unavailable UgarteMali Admitting Unavailable Care Physician, No Primary Primary Care Unava ilAlexis Mejia Referring Unavailable Mary Wakefield Attending Unavailable Mary Wakefield Primary Care Unavailable Mitchell Sheth Consulting Unavailable Mary Wakefield Referring Unavailable Allergies Allergy Classification Reported Allergen(s) Allergy Type Date of Onset Reaction(s) Facility (20 sources) Ct: Iodinated Contrast- Oral And Iv Dye; Translations: [CT: IODINATED CONTRAST- ORAL AND IV DYE] Propensity to adverse reactions to drug 5 [facility] (17 sources) Melon; Translations: [MELON] Propensity to adverse reactions to drug 2 Unknown, Rash [facility] (2 sources) Iodinated Contrast Media; Translations: [IODINATED CONTRAST MEDIA] Drug Allergy 5 [facility] (1 source) cantaloupe allergenic extract Drug Allergy 5 [facility] (1 source) Mold Extract Drug Allergy 5 [facility] (1 source) rosuvastatin Drug Allergy 5 [facility] (1 source) Iodinated Contrast Media Drug allergy (disorder) 5 [facility] (1 source) Seasonal Allergies: Uncoded; Translations: [Seasonal Allergies: Uncoded] Propensity to adverse reactions (disorder) 5 [facility] Medications Current Medications Medication Drug Class(es) Dates [...] heart disease (20 sources) Coronary arteriosclerosis in [place] artery; Translations: [Atherosclerotic heart disease of [place] coronary artery without angina pectoris] Onset: 6 [...] [Essential (primary) hypertension] Onset: 3 08-27-2023 Chronic Hemorrhoids (1 source) Other hemorrhoids; Translations: [Other hemorrhoids] Onset: 5 Episodic Late effects of cerebrovascular disease (2 sources) [...] ill-defined heart diseases] Onset: 5 Chronic Other and unspecified benign neoplasm (1 source) Personal history of colonic polyps; Translations: [Personal history of colon polyps] Onset: 5 Episodic Other and unspecified benign neoplasm (1 source) Benign neoplasm of ascending colon; Translations: [Benign neoplasm of ascending colon] Onset: 5 Episodic Other connective tissue disease (1 source) [...] [Dysarthria and anarthria] Onset: 5 Episodic Other nutritional; endocrine; and [...] (1 source) Pain, unspecified; Translations: [Pain] Onset: Episodic Substance-related disorders (1 source) Nicotine dependence, other tobacco product, uncomplicated; Translations: [Nicotine dependence, other tobacco product, uncomplicated] Onset: Chronic Unclassified (1 source) Patient encounter status; Translations: [Encounter for imaging to screen for metal prior to MRI] Unclassified (1 source) Personal history of colon polyps, unspecified; Translations: [Personal history of colon polyps, unspecified] Onset: 5 Unclassified (1 source) Other intervertebral disc degeneration, [...] in right hip] Onset: 08-27-2023 08-27-2023 Episodic Other non-traumatic joint disorders (1 source) Pain in left hip; Translations: [Pain in left hip] Onset: 01-19-2025 Episodic Residual codes; unclassified (1 source) Insomnia, unspecified; Translations: [Insomnia, unspecified] Onset: 11-26-2024 Episodic Spondylosis; intervertebral disc disorders; other back problems (20 sources) Pain in cervical spine; Translations: [Cervicalgia] Onset: 08-30-2016 08-30-2016 Episodic Results Test Name Value Interpretation Reference Range Facility Neurology Visit Reporton Neurology Visit Report Normal [facility] Bedside Glucoseon 04-20-2025 FINGERSTICK GLU 89 mg/dL Normal 74-106 [facility] Comment on above: Result Comment: MAYRA GONZALEZ OF PATIENT CARE PER NURSING PROTOCOL Performed By: #### L 501.080 ####[facility] [address] [place], [address] Colonoscopy Reporton 025 Colonoscopy Report Normal [facility] MR/OP.PROVATon 04-20-2025 MR/OP.PROVAT Normal [facility] MR/POSTOP.ANEon 04-20-2025 MR/POSTOP.ANE Normal [facility] MR/NRWUZHMJ5ea 04-20-2025 MR/POSTOPAN2 Normal [facility] Surgery Specimen Level Gi 04-20-2025 Surgery Specimen Level IV Normal [facility] Comment on above: Performed By: #### P SUIV ####[facility] [address] [place], [address] MR/PAT.ANEon 04-16-2025 MR/PAT.ANE Normal [facility] Re-Evaluation - PT (1)on Re-Evaluation - PT (1) Normal [facility] Surgery Visit Reporton 03-30 Surgery Visit Report Normal [facility] Orthopedic Visit Reporton Orthopedic Visit Report Normal [facility] Re-Evalution OTon 03-01-2025 Re-Evalution OT Normal [facility] CBC W/Diff, Automatedon Absolute Lymph 1.86 X10 3/uL Normal 0.83-4.51 [facility] Comment on above: Performed By: #### L 100.0100, L501.9985, L500.4050 ####[facility] [address] [place], [address] Absolute Neut 5.9 X10 3/uL Normal 2.0-7.7 [facility] Comment on above: Performed By: #### L 100.0100, L501.9985, L500.4050 ####[facility] [address] [place], [address] Basophils/100 WBC (Bld) 0.5 % Normal 0-1 [facility] Comment on above: Performed By: #### L 100.0100, L501.9985, L500.4050 ####[facility] [address] [place], [address] Eosinophils/100 WBC (Bld) 1.6 % Normal 0-5 [facility] Comment on above: Performed By: #### L 100.0100, L501.9985, L500.4050 ####[facility] [address] [place], [address] Erythrocyte distribution width (RBC) [Ratio] 12.5 % Normal 11.6-14.6 [facility] Comment on above: Performed By: #### L 100.0100, L501.9985, L500.4050 ####[facility] [address] [place], [address] Hematocrit (Bld) [Volume fraction] 41.7 % Normal 40-54 [facility] Comment on above: Performed By: #### L 100.0100, L501.9985, L500.4050 ####[facility] [address] [place], [address] Hemoglobin (Bld) [Mass/Vol] 13.9 g/dL Normal 13.0-16.5 [facility] Comment on above: Performed By: #### L 100.0100, L501.9985, L500.4050 ####[facility] [address] [place], [address] IG% 0.300 Normal 0.0-0.9 [facility] Comment on above: Result Comment: IG% - Immature Granulocytes (promyelocytes, myelocytes andmetamyelocytes) > 1% indicates that a LEFT SHIFT is Present. Performed By: #### L 100.0100, L501.9985, L500.4050 ####[facility] [address] [place], [address] Lymphocytes/100 WBC (Bld) 21.6 % Normal 19-41 [facility] Comment on above: Performed By: #### L 100.0100, L501.9985, L500.4050 ####[facility] [address] [place], [address] MCH (RBC) [Entitic mass] 30.7 pg Normal 27.0-32.0 [facility] Comment on above: Performed By: #### L 100.0100, L501.9985, L500.4050 ####[facility] [address] [place], [address] MCHC (RBC) [Mass/Vol] 33.3 g/dL Normal 32-36 [facility] Comment on above: Performed By: #### L 100.0100, L501.9985, L500.4050 ####[facility] [address] [place], [address] MCV (RBC) [Entitic vol] 92.1 fL Normal 80-94 [facility] Comment on above: Performed By: #### L 100.0100, L501.9985, L500.4050 ####[facility] [address] [place], [address] Monocytes/100 WBC (Bld) 7.6 % Normal 0-10 [facility] Comment on above: Performed By: #### L 100.0100, L501.9985, L500.4050 ####[facility] [address] [place], [address] Neutrophils/100 WBC (Bld) 68.4 % Normal 47-70 [facility] Comment on above: Performed By: #### L 100.0100, L501.9985, L500.4050 ####[facility] [address] [place], [address] Nucleated RBC (Bld) [#/Vol] 0 10*3/uL Normal 0-5 [facility] Comment on above: Performed By: #### L 100.0100, L501.9985, L500.4050 ####[facility] [address] [place], [address] Platelet mean volume (Bld) [Entitic vol] 10.9 fL Normal 6.2-12.0 [facility] Comment on above: Performed By: #### L 100.0100, L501.9985, L500.4050 ####[facility] [address] [place], [address] Platelets (Bld) [#/Vol] 320 10*3/uL Normal 150-450 [facility] Comment on above: Performed By: #### L 100.0100, L501.9985, L500.4050 ####[facility] [address] [place], [address] RBC (Bld) [#/Vol] 4.53 10*6/uL Low 4.6-6.2 [facility] Comment on above: Performed By: #### L 100.0100, L501.9985, L500.4050 ####[facility] [address] [place], [address] RDW SD 42.1 fl Normal 35.1-43.9 [facility] Comment on above: Performed By: #### L 100.0100, L501.9985, L500.4050 ####[facility] [address] [place], [address] WBC (Bld) [#/Vol] 8.6 10*3/uL Normal 4.4-11.0 [facility] Comment on above: Performed By: #### L 100.0100, L501.9985, L500.4050 ####[facility] [address] [place], [address] Comprehensive Metabolic Prof [facility] 02-11-2025 Albumin [Mass/Vol] 4.5 g/dL Normal 3.4-4.8 [facility] Comment on above: Performed By: #### L 100.0100, L501.9985, L500.4050 ####[facility] [address] [place], [address] Albumin/Globulin [Mass ratio] 1.5 {ratio} Normal 0.9-2.4 [facility] Comment on above: Performed By: #### L 100.0100, L501.9985, L500.4050 ####[facility] [address] [place], [address] ALK PHOS 55 U/L Normal 40-129 [facility] Comment on above: Performed By: #### L 100.0100, L501.9985, L500.4050 ####[facility] [address] [place], [address] ALT [Catalytic activity/Vol] 12 U/L Normal <=46 [facility] Comment on above: Performed By: #### L 100.0100, L501.9985, L500.4050 ####[facility] [address] [place], [address] AST [Catalytic activity/Vol] 20 U/L Normal <=37 [facility] Comment on above: Performed By: #### L 100.0100, L501.9985, L500.4050 ####[facility] [address] [place], [address] Bilirubin [Mass/Vol] 0.31 mg/dL Normal 0.00-1.30 [facility] Comment on above: Performed By: #### L 100.0100, L501.9985, L500.4050 ####[facility] [address] [place], [address] BUN/CRE 23.6 RATIO High 10-20 [facility] Comment on above: Performed By: #### L 100.0100, L501.9985, L500.4050 ####[facility] [address] [place], [address] Calcium [Mass/Vol] 9.7 mg/dL Normal 7.6-11.0 [facility] Comment on above: Performed By: #### L 100.0100, L501.9985, L500.4050 ####[facility] [address] [place], [address] Chloride [Moles/Vol] 103 mmol/L Normal 98-108 [facility] Comment on above: Performed By: #### L 100.0100, L501.9985, L500.4050 ####[facility] [address] [place], [address] CO2 [Moles/Vol] 23.7 mmol/L Normal 21.0-32.0 [facility] Comment on above: Performed By: #### L 100.0100, L501.9985, L500.4050 ####[facility] [address] [place], [address] Creatinine [Mass/Vol] 0.77 mg/dL Normal 0.70-1.20 [facility] Comment on above: Performed By: #### L 100.0100, L501.9985, L500.4050 ####[facility] [address] [place], [address] GAP 13 Normal 5-15 [facility] Comment on above: Performed By: #### L 100.0100, L501.9985, L500.4050 ####[facility] [address] [place], [address] GFR/1.73 sq M.predicted among non-blacks MDRD (S/P/Bld) [Vol rate/Area] 100 mL/min/{1.73_m2} Normal >60 [facility] Comment on above: Result Comment: mL/m in/1.73m2 CKD-EPI Creatinine Equation (2020) Performed By: #### L 100.0100, L501.9985, L500.4050 ####[facility] [address] [place], [address] Globulin (S) [Mass/Vol] 3.0 g/dL Normal 2.2-4.2 [facility] Comment on above: Performed By: #### L 100.0100, L501.9985, L500.4050 ####[facility] [address] [place], [address] Glucose [Mass/Vol] 108 mg/dL High 70-99 [facility] Comment on above: Performed By: #### L 100.0100, L501.9985, L500.4050 ####[facility] [address] [place], [address] Potassium [Moles/Vol] 4.2 mmol/L Normal 3.3-5.1 [facility] Comment on above: Performed By: #### L 100.0100, L501.9985, L500.4050 ####[facility] [address] [place], [address] Sodium [Moles/Vol] 140 mmol/L Normal 133-145 [facility] Comment on above: Performed By: #### L 100.0100, L501.9985, L500.4050 ####[facility] [address] [place], [address] T PROT 7.5 g/dL Normal 5.9-8.4 [facility] Comment on above: Performed By: #### L 100.0100, L501.9985, L500.4050 ####[facility] [address] [place], [address] Urea nitrogen [Mass/Vol] 18 mg/dL Normal 4-19 [facility] Comment on above: Performed By: #### L 100.0100, L501.9985, L500.4050 ####[facility] [address] [place], [address] Hemoglobin A1con 02-11-2025 HbA1c (Bld) [Mass fraction] 5.2 % Normal <=5.6 [facility] Comment on above: Result Comment: Norm al < 5.7 % Prediabetic 5.7 - 6.4 % Diabetic >or= 6.5 % Please note range changes. Performed By: #### L 100.0100, L501.9985, L500.4050 ####[facility] [address] [place], [address] Internal Medicine Office Vis iton 02-11-2025 Internal Medicine Office Visit Normal [facility] HIP, UNI W/ Pelvis 2-3 Views on 01-27-2025 HIP, UNI W/ Pelvis 2-3 Views Normal [facility] Lumbar Spine 2 or 3 Viewson 01-27-2025 Lumbar Spine 2 or 3 Views Normal [facility] MR/BMS.BPon 01-27-2025 MR/BMS.BP Normal [facility] Inital Evaluation (1) - PTon 01-25-2025 Inital Evaluation (1) - PT Normal [facility] OT General Evaluationon 01-07 OT General Evaluation Normal [facility] SP/HP.SP.Diaz 01-25-2025 SP/HP.SP.EV Normal [facility] Internal Medicine Office Vis iton 12-31-2024 Internal Medicine Office Visit Normal [facility] CNOVon 12-18-2024 CNOV Office Visit (PODIWS ) LAWRENCE CRISTINA V ([id number]) 1960 Date Time Provider Department 12/18/24 11:00 AM MARY NAVARRO PODIWS During your visit today, we recorded the [...] DM nail care. Formerly seen Podiatry in [place] two years ago. Moved to this area [...] pain when too long. - Uses a double end production grinder for nail maintenance. Musculoskeletal: (+) toe [...] keep sugars/a1c under 8.0 Attestation Recording using [employer] software for draft documentation of the visit was discussed with the patient/authorized commercial representative; all questions welcomed and answered. Patient/authorized commercial representative agreed to proceed PEGGY Ayala Matthew [...] care i (more content not included)... Normal [facility] Internal Medicine Office Vis iton 11-26-2024 Internal Medicine Office Visit Normal [facility] Bedside Glucoseon 11-24-2024 FINGERSTICK GLU 105 mg/dL Normal 74-106 [facility] Comment on above: Result Comment: MAYRA GEMENT OF PATIENT CARE PER NURSING PROTOCOL Performed By: #### L 501.080 ####[facility] [address] [place], [address] FINGERSTICK GLU 107 mg/dL High 74-106 [facility] Comment on above: Result Comment: MAYRA GEMENT OF PATIENT CARE PER NURSING PROTOCOL Performed By: #### L 501.080 ####[facility] [address] [place], [address] CBC-Complete Blood Cnt No Di ffon 11-24-2024 Erythrocyte distribution width (RBC) [Ratio] 12.8 % Normal 11.6-14.6 [facility] Comment on above: Performed By: #### L 500.4100, L100.0500, L501.2300, L500.4050, L501.5200 ####[facility] [address] [place], [address] Hematocrit (Bld) [Volume fraction] 38.7 % Low 40-54 [facility] Comment on above: Performed By: #### L 500.4100, L100.0500, L501.2300, L500.4050, L501.5200 ####[facility] [address] [place], [address] Hemoglobin (Bld) [Mass/Vol] 13.1 g/dL Normal 13.0-16.5 [facility] Comment on above: Performed By: #### L 500.4100, L100.0500, L501.2300, L500.4050, L501.5200 ####[facility] [address] [place], [address] MCH (RBC) [Entitic mass] 31.5 pg Normal 27.0-32.0 [facility] Comment on above: Performed By: #### L 500.4100, L100.0500, L501.2300, L500.4050, L501.5200 ####[facility] [address] [place], [address] MCHC (RBC) [Mass/Vol] 33.9 g/dL Normal 32-36 [facility] Comment on above: Performed By: #### L 500.4100, L100.0500, L501.2300, L500.4050, L501.5200 ####[facility] [address] [place], [address] MCV (RBC) [Entitic vol] 93.0 fL Normal 80-94 [facility] Comment on above: Performed By: #### L 500.4100, L100.0500, L501.2300, L500.4050, L501.5200 ####[facility] [address] [place], [address] Platelet mean volume (Bld) [Entitic vol] 9.9 fL Normal 6.2-12.0 [facility] Comment on above: Performed By: #### L 500.4100, L100.0500, L501.2300, L500.4050, L501.5200 ####[facility] [address] [place], [address] Platelets (Bld) [#/Vol] 327 10*3/uL Normal 150-450 [facility] Comment on above: Performed By: #### L 500.4100, L100.0500, L501.2300, L500.4050, L501.5200 ####[facility] [address] [place], [address] RBC (Bld) [#/Vol] 4.16 10*6/uL Low 4.6-6.2 [facility] Comment on above: Performed By: #### L 500.4100, L100.0500, L501.2300, L500.4050, L501.5200 ####[facility] [address] [place], [address] RDW SD 43.4 fl Normal 35.1-43.9 [facility] Comment on above: Performed By: #### L 500.4100, L100.0500, L501.2300, L500.4050, L501.5200 ####[facility] [address] [place], [address] WBC (Bld) [#/Vol] 9.1 10*3/uL Normal 4.4-11.0 [facility] Comment on above: Performed By: #### L 500.4100, L100.0500, L501.2300, L500.4050, L501.5200 ####[facility] [address] [place], [address] Comprehensive Metabolic Prof [facility] 11-24-2024 Albumin [Mass/Vol] 4.0 g/dL Normal 3.4-4.8 [facility] Comment on above: Performed By: #### L 500.4100, L100.0500, L501.2300, L500.4050, L501.5200 ####[facility] [address] [place], [address] Albumin/Globulin [Mass ratio] 1.5 {ratio} Normal 0.9-2.4 [facility] Comment on above: Performed By: #### L 500.4100, L100.0500, L501.2300, L500.4050, L501.5200 ####[facility] [address] [place], [address] ALK PHOS 46 U/L Normal 40-129 [facility] Comment on above: Performed By: #### L 500.4100, L100.0500, L501.2300, L500.4050, L501.5200 ####[facility] [address] [place], [address] ALT [Catalytic activity/Vol] 17 U/L Normal <=46 [facility] Comment on above: Performed By: #### L 500.4100, L100.0500, L501.2300, L500.4050, L501.5200 ####[facility] [address] [place], [address] AST [Catalytic activity/Vol] 18 U/L Normal <=37 [facility] Comment on above: Performed By: #### L 500.4100, L100.0500, L501.2300, L500.4050, L501.5200 ####[facility] [address] [place], [address] Bilirubin [Mass/Vol] 0.29 mg/dL Normal 0.00-1.30 [facility] Comment on above: Performed By: #### L 500.4100, L100.0500, L501.2300, L500.4050, L501.5200 ####[facility] [address] [place], [address] BUN/CRE 16.4 RATIO Normal 10-20 [facility] Comment on above: Performed By: #### L 500.4100, L100.0500, L501.2300, L500.4050, L501.5200 ####[facility] [address] [place], [address] Calcium [Mass/Vol] 9.3 mg/dL Normal 7.6-11.0 [facility] Comment on above: Performed By: #### L 500.4100, L100.0500, L501.2300, L500.4050, L501.5200 ####[facility] [address] [place], [address] Chloride [Moles/Vol] 105 mmol/L Normal 98-108 [facility] Comment on above: Performed By: #### L 500.4100, L100.0500, L501.2300, L500.4050, L501.5200 ####[facility] [address] [place], [address] CO2 [Moles/Vol] 24.7 mmol/L Normal 21.0-32.0 [facility] Comment on above: Performed By: #### L 500.4100, L100.0500, L501.2300, L500.4050, L501.5200 ####[facility] [address] [place], [address] Creatinine [Mass/Vol] 0.87 mg/dL Normal 0.70-1.20 [facility] Comment on above: Performed By: #### L 500.4100, L100.0500, L501.2300, L500.4050, L501.5200 ####[facility] [address] [place], [address] ECRCL 90.90 ml/min Normal 50-250 [facility] Comment on above: Performed By: #### L 500.4100, L100.0500, L501.2300, L500.4050, L501.5200 ####[facility] [address] [place], [address] GAP 12 Normal 5-15 [facility] Comment on above: Performed By: #### L 500.4100, L100.0500, L501.2300, L500.4050, L501.5200 ####[facility] [address] [place], [address] GFR/1.73 sq M.predicted among non-blacks MDRD (S/P/Bld) [Vol rate/Area] 96 mL/min/{1.73_m2} Normal >60 [facility] Comment on above: Result Comment: mL/m in/1.73m2 CKD-EPI Creatinine Equation (2020) Performed By: #### L 500.4100, L100.0500, L501.2300, L500.4050, L501.5200 ####[facility] [address] [place], [address] Globulin (S) [Mass/Vol] 2.6 g/dL Normal 2.2-4.2 [facility] Comment on above: Performed By: #### L 500.4100, L100.0500, L501.2300, L500.4050, L501.5200 ####[facility] [address] [place], [address] Glucose [Mass/Vol] 97 mg/dL Normal 70-99 [facility] Comment on above: Performed By: #### L 500.4100, L100.0500, L501.2300, L500.4050, L501.5200 ####[facility] [address] [place], [address] Potassium [Moles/Vol] 3.8 mmol/L Normal 3.3-5.1 [facility] Comment on above: Performed By: #### L 500.4100, L100.0500, L501.2300, L500.4050, L501.5200 ####[facility] [address] [place], [address] Sodium [Moles/Vol] 142 mmol/L Normal 133-145 [facility] Comment on above: Performed By: #### L 500.4100, L100.0500, L501.2300, L500.4050, L501.5200 ####[facility] [address] [place], [address] T PROT 6.7 g/dL Normal 5.9-8.4 [facility] Comment on above: Performed By: #### L 500.4100, L100.0500, L501.2300, L500.4050, L501.5200 ####[facility] [address] [place], [address] Urea nitrogen [Mass/Vol] 14 mg/dL Normal 4-19 [facility] Comment on above: Performed By: #### L 500.4100, L100.0500, L501.2300, L500.4050, L501.5200 ####[facility] [address] [place], [address] Discharge Instructionon 11-07 Discharge Instruction Normal [facility] Lipid Profileon 11-24-2024 CHOL:HDL 3.53 Normal [facility] Comment on above: Performed By: #### L 500.4100, L100.0500, L501.2300, L500.4050, L501.5200 ####[facility] [address] [place], [address] Cholesterol [Mass/Vol] 101 mg/dL Normal <=200 [facility] Comment on above: Result Comment: Chol esterol level, Desirable <200 mg/dLBorderline high cholesterol 200-239 mg/dLHigh cholesterol >=240 mg/dLRecommendations of the NCEP Adult Treatment Panel for thefollowing risk-cutoff thresholds for the [place] [facility]. Performed By: #### L 500.4100, L100.0500, L501.2300, L500.4050, L501.5200 ####[facility] [address] [place], [address] Cholesterol in HDL [Mass/Vol] 29 mg/dL Low [facility] Comment on above: Result Comment: Meghana onal Cholesterol Education Program (NCEP) guidelines:<40 mg/dL: Low HDL-cholesterol (major risk factor for CHD)>= 60 mg/dL: High HDL-cholesterol (negative risk factor forCHD)HDL-cholesterol is affected by a number of factors, e.g.smoking, exercise, hormones, sex and age. Performed By: #### L 500.4100, L100.0500, L501.2300, L500.4050, L501.5200 ####[facility] [address] [place], [address] Cholesterol in LDL [Mass/Vol] 43 mg/dL Normal [facility] Comment on above: Result Comment: Bord dmwkpp=777-160 mg/dL Higher Pewb=429 mg/dL or greater Performed By: #### L 500.4100, L100.0500, L501.2300, L500.4050, L501.5200 ####[facility] [address] [place], [address] Cholesterol in VLDL [Mass/Vol] 30 mg/dL Normal 5-40 [facility] Comment on above: Performed By: #### L 500.4100, L100.0500, L501.2300, L500.4050, L501.5200 ####[facility] [address] [place], [address] Triglyceride [Mass/Vol] 148 mg/dL Normal [facility] Comment on above: Result Comment: The drugs N-Acetylcysteine and Metamizole may falselydepress this assay.Normal range: <150 mg/dLBorderline High: 150-199 mg/dLHigh: 200-499 mg/dLVery High: >500 mg/dL Performed By: #### L 500.4100, L100.0500, L501.2300, L500.4050, L501.5200 ####[facility] [address] [place], [address] Magnesiumon 11-24-2024 Magnesium [Mass/Vol] 2.1 mg/dL Normal 1.5-2.2 [facility] Comment on above: Performed By: #### L 500.4100, L100.0500, L501.2300, L500.4050, L501.5200 ####[facility] [address] [place], [address] Phosphoruson 11-24-2024 Phosphate [Mass/Vol] 3.7 mg/dL Normal 2.7-4.5 [facility] Comment on above: Performed By: #### L 500.4100, L100.0500, L501.2300, L500.4050, L501.5200 ####[facility] [address] [place], [address] Bedside Glucoseon 11-23-2024 FINGERSTICK GLU 107 mg/dL High 74-106 [facility] Comment on above: Result Comment: MAYRA GEMENT OF PATIENT CARE PER NURSING PROTOCOL Performed By: #### L 501.080 ####[facility] [address] [place], [address] FINGERSTICK GLU 102 mg/dL Normal 74-106 [facility] Comment on above: Result Comment: MAYRA GEMENT OF PATIENT CARE PER NURSING PROTOCOL Performed By: #### L 501.080 ####[facility] [address] [place], [address] FINGERSTICK GLU 102 mg/dL Normal 74-106 [facility] Comment on above: Result Comment: MAYRA GEMENT OF PATIENT CARE PER NURSING PROTOCOL Performed By: #### L 501.080 ####[facility] [address] [place], [address] Bedside Glucoseon 11-21-2024 FINGERSTICK GLU 112 mg/dL High 74-106 [facility] Comment on above: Result Comment: MAYRA GEMENT OF PATIENT CARE PER NURSING PROTOCOL Performed By: #### L 501.080 ####[facility] [address] [place], [address] Bedside Glucoseon 11-20-2024 FINGERSTICK GLU 104 mg/dL Normal 74-106 [facility] Comment on above: Result Comment: MAYRA GEMENT OF PATIENT CARE PER NURSING PROTOCOL Performed By: #### L 501.080 ####[facility] [address] [place], [address] Bedside Glucoseon 11-19-2024 FINGERSTICK GLU 111 mg/dL High 74-106 [facility] Comment on above: Result Comment: MAYRA GEMENT OF PATIENT CARE PER NURSING PROTOCOL Performed By: #### L 501.080 ####[facility] [address] [facility] [address] Bedside Glucoseon 11-18-2024 FINGERSTICK GLU 110 mg/dL High 74-106 [facility] Comment on above: Result Comment: MAYRA GEMENT OF PATIENT CARE PER NURSING PROTOCOL Performed By: #### L 501.080 ####[facility] [address] [facility] [address] Bedside Glucoseon 11-17-2024 FINGERSTICK GLU 102 mg/dL Normal 74-106 [facility] Comment on above: Result Comment: MAYRA GEMENT OF PATIENT CARE PER NURSING PROTOCOL Performed By: #### L 501.080 ####[facility] [address] [place], [address] FINGERSTICK GLU 129 mg/dL High 74-106 [facility] Comment on above: Result Comment: MAYRA GEMENT OF PATIENT CARE PER NURSING PROTOCOL Performed By: #### L 501.080 ####[facility] [address] [place], [address] FINGERSTICK GLU 106 mg/dL Normal 74-106 [facility] Comment on above: Result Comment: MAYRA GEMENT OF PATIENT CARE PER NURSING PROTOCOL Performed By: #### L 501.080 ####[facility] [address] [place], [address] Bedside Glucoseon 11-15-2024 FINGERSTICK GLU 102 mg/dL Normal 74-106 [facility] Comment on above: Result Comment: MAYRA GEMENT OF PATIENT CARE PER NURSING PROTOCOL Performed By: #### L 501.080 ####[facility] [address] [place], [address] Bedside Glucoseon 11-14-2024 FINGERSTICK GLU 147 mg/dL High 74-106 [facility] Comment on above: Result Comment: MAYRA GEMENT OF PATIENT CARE PER NURSING PROTOCOL Performed By: #### L 501.080 ####[facility] [address] [place], [address] FINGERSTICK GLU 114 mg/dL High 74-106 [facility] Comment on above: Result Comment: MAYRA GEMENT OF PATIENT CARE PER NURSING PROTOCOL Performed By: #### L 501.080 ####[facility] [address] [place], [address] Basic Metabolic Profile (BMP )on 11-13-2024 BUN/CRE 16.9 RATIO Normal 10-20 [facility] Comment on above: Performed By: #### L 501.5200, L500.2500, L100.0600 ####[facility] [address] [place], [address] Calcium [Mass/Vol] 9.7 mg/dL Normal 7.6-11.0 [facility] Comment on above: Performed By: #### L 501.5200, L500.2500, L100.0600 ####[facility] [address] [place], [address] Chloride [Moles/Vol] 104 mmol/L Normal 98-108 [facility] Comment on above: Performed By: #### L 501.5200, L500.2500, L100.0600 ####[facility] [address] [place], [address] CO2 [Moles/Vol] 26.3 mmol/L Normal 21.0-32.0 [facility] Comment on above: Performed By: #### L 501.5200, L500.2500, L100.0600 ####[facility] [address] [place], [address] Creatinine [Mass/Vol] 0.94 mg/dL Normal 0.70-1.20 [facility] Comment on above: Performed By: #### L 501.5200, L500.2500, L100.0600 ####[facility] [address] [place], [address] ECRCL 83.95 ml/min Normal 50-250 [facility] Comment on above: Performed By: #### L 501.5200, L500.2500, L100.0600 ####[facility] [address] [place], [address] GAP 12 Normal 5-15 [facility] Comment on above: Performed By: #### L 501.5200, L500.2500, L100.0600 ####[facility] [address] [place], [address] GFR/1.73 sq M.predicted among non-blacks MDRD (S/P/Bld) [Vol rate/Area] 90 mL/min/{1.73_m2} Normal >60 [facility] Comment on above: Result Comment: mL/m in/1.73m2 CKD-EPI Creatinine Equation (2020) Performed By: #### L 501.5200, L500.2500, L100.0600 ####[facility] [address] [place], [address] Glucose [Mass/Vol] 148 mg/dL High 70-99 [facility] Comment on above: Performed By: #### L 501.5200, L500.2500, L100.0600 ####[facility] [address] [place], [address] Potassium [Moles/Vol] 4.2 mmol/L Normal 3.3-5.1 [facility] Comment on above: Performed By: #### L 501.5200, L500.2500, L100.0600 ####[facility] [address] [place], [address] Sodium [Moles/Vol] 142 mmol/L Normal 133-145 [facility] Comment on above: Performed By: #### L 501.5200, L500.2500, L100.0600 ####[facility] [address] [place], [address] Urea nitrogen [Mass/Vol] 16 mg/dL Normal 4-19 [facility] Comment on above: Performed By: #### L 501.5200, L500.2500, L100.0600 ####[facility] [address] [place], [address] Bedside Glucoseon 11-13-2024 FINGERSTICK GLU 113 mg/dL High 74-106 [facility] Comment on above: Result Comment: MAYRA GEMENT OF PATIENT CARE PER NURSING PROTOCOL Performed By: #### L 501.080 ####[facility] [address] [place], [address] FINGERSTICK GLU 144 mg/dL High 74-106 [facility] Comment on above: Result Comment: MAYRA GEMENT OF PATIENT CARE PER NURSING PROTOCOL Performed By: #### L 501.080 ####[facility] [address] [place], [address] HH, Hemoglobin AND Hematocri ton 11-13-2024 Hematocrit (Bld) [Volume fraction] 40.6 % Normal 40-54 [facility] Comment on above: Performed By: #### L 501.5200, L500.2500, L100.0600 ####[facility] [address] [place], [address] Hemoglobin (Bld) [Mass/Vol] 14.0 g/dL Normal 13.0-16.5 [facility] Comment on above: Performed By: #### L 501.5200, L500.2500, L100.0600 ####[facility] [address] [place], [address] Magnesiumon 11-13-2024 Magnesium [Mass/Vol] 2.1 mg/dL Normal 1.5-2.2 [facility] Comment on above: Performed By: #### L 501.5200, L500.2500, L100.0600 ####[facility] [address] [place], [address] Bedside Glucoseon 11-12-2024 FINGERSTICK GLU 131 mg/dL High 74-106 [facility] Comment on above: Result Comment: MAYRA GEMENT OF PATIENT CARE PER NURSING PROTOCOL Performed By: #### L 501.080 ####[facility] [address] [place], [address] FINGERSTICK GLU 117 mg/dL High 74-106 [facility] Comment on above: Result Comment: MAYRA GEMENT OF PATIENT CARE PER NURSING PROTOCOL Performed By: #### L 501.080 ####[facility] [address] [place], [address] Bedside Glucoseon 11-11-2024 FINGERSTICK GLU 120 mg/dL High 74-106 [facility] Comment on above: Result Comment: MAYRA GEMENT OF PATIENT CARE PER NURSING PROTOCOL Performed By: #### L 501.080 ####[facility] [address] [place], [address] FINGERSTICK GLU 128 mg/dL High -106 [facility] Comment on above: Result Comment: MAYRA GEMENT OF PATIENT CARE PER NURSING PROTOCOL Performed By: #### L 501.080 ####[facility] [address] [place], [address] FINGERSTICK GLU 117 mg/dL High -106 [facility] Comment on above: Result Comment: MAYRA GEMENT OF PATIENT CARE PER NURSING PROTOCOL Performed By: #### L 501.080 ####[facility] [address] [place], [address] Bedside Glucoseon 11-10-2024 FINGERSTICK GLU 133 mg/dL High -106 [facility] Comment on above: Result Comment: MAYRA GEMENT OF PATIENT CARE PER NURSING PROTOCOL Performed By: #### L 501.080 ####[facility] [address] [place], [address] FINGERSTICK GLU 109 mg/dL High -106 [facility] Comment on above: Result Comment: MAYRA GEMENT OF PATIENT CARE PER NURSING PROTOCOL Performed By: #### L 501.080 ####[facility] [address] [place], [address] FINGERSTICK GLU 127 mg/dL High -106 [facility] Comment on above: Result Comment: MAYRA GEMENT OF PATIENT CARE PER NURSING PROTOCOL Performed By: #### L 501.080 ####[facility] [address] [place], [address] Bedside Glucoseon 11-09-2024 FINGERSTICK GLU 122 mg/dL High -106 [facility] Comment on above: Result Comment: MAYRA GEMENT OF PATIENT CARE PER NURSING PROTOCOL Performed By: #### L 501.080 ####[facility] [address] [place], [address] FINGERSTICK GLU 107 mg/dL High 74-106 [facility] Comment on above: Result Comment: MAYRA GEMENT OF PATIENT CARE PER NURSING PROTOCOL Performed By: #### L 501.080 ####[facility] [address] [place], [address] FINGERSTICK GLU 129 mg/dL High -106 [facility] Comment on above: Result Comment: MAYRA GEMENT OF PATIENT CARE PER NURSING PROTOCOL Performed By: #### L 501.080 ####[facility] [address] [place], [address] Bedside Glucoseon 11-08-2024 FINGERSTICK GLU 110 mg/dL High 74-106 [facility] Comment on above: Result Comment: MAYRA GEMENT OF PATIENT CARE PER NURSING PROTOCOL Performed By: #### L 501.080 ####[facility] [address] [place], [address] FINGERSTICK GLU 97 mg/dL Normal -106 [facility] Comment on above: Result Comment: MAYRA GEMENT OF PATIENT CARE PER NURSING PROTOCOL Performed By: #### L 501.080 ####[facility] [address] [place], [address] FINGERSTICK GLU 125 mg/dL High -106 [facility] Comment on above: Result Comment: MAYRA GEMENT OF PATIENT CARE PER NURSING PROTOCOL Performed By: #### L 501.080 ####[facility] [address] [place], [address] Bedside Glucoseon 11-07-2024 FINGERSTICK GLU 138 mg/dL High 74-106 [facility] Comment on above: Result Comment: MAYRA GEMENT OF PATIENT CARE PER NURSING PROTOCOL Performed By: #### L 501.080 ####[facility] [address] [place], [address] FINGERSTICK GLU 128 mg/dL High 74-106 [facility] Comment on above: Result Comment: MAYRA GEMENT OF PATIENT CARE PER NURSING PROTOCOL Performed By: #### L 501.080 ####[facility] [address] [place], [address] FINGERSTICK GLU 132 mg/dL High 74-106 [facility] Comment on above: Result Comment: MAYRA GEMENT OF PATIENT CARE PER NURSING PROTOCOL Performed By: #### L 501.080 ####[facility] [address] [place], [address] Bedside Glucoseon 11-06-2024 FINGERSTICK GLU 125 mg/dL High 74-106 [facility] Comment on above: Result Comment: MAYRA GEMENT OF PATIENT CARE PER NURSING PROTOCOL Performed By: #### L 501.080 ####[facility] [address] [place], [address] FINGERSTICK GLU 99 mg/dL Normal -106 [facility] Comment on above: Result Comment: MAYRA GEMENT OF PATIENT CARE PER NURSING PROTOCOL Performed By: #### L 501.080 ####[facility] [address] [place], [address] FINGERSTICK GLU 117 mg/dL High 74-106 [facility] Comment on above: Result Comment: MAYRA GEMENT OF PATIENT CARE PER NURSING PROTOCOL Performed By: #### L 501.080 ####[facility] [address] [place], [address] L499.5025on 11-06-2024 Potassium [Moles/Vol] 3.8 mmol/L Normal 3.3-5.1 [facility] Comment on above: Performed By: #### L 499.5025 ####[facility] [address] [place], [address] Bedside Glucoseon 11-05-2024 FINGERSTICK GLU 160 mg/dL High 74-106 [facility] Comment on above: Result Comment: MAYRA GEMENT OF PATIENT CARE PER NURSING PROTOCOL Performed By: #### L 501.080 ####[facility] [address] [place], [address] FINGERSTICK GLU 144 mg/dL High 74-106 [facility] Comment on above: Result Comment: MAYRA GEMENT OF PATIENT CARE PER NURSING PROTOCOL Performed By: #### L 501.080 ####[facility] [address] [place], [address] FINGERSTICK GLU 122 mg/dL High 74-106 [facility] Comment on above: Result Comment: MAYRA GEMENT OF PATIENT CARE PER NURSING PROTOCOL Performed By: #### L 501.080 ####[facility] [address] [place], [address] Bedside Glucoseon 11-04-2024 FINGERSTICK GLU 122 mg/dL High -106 [facility] Comment on above: Result Comment: MAYRA GEMENT OF PATIENT CARE PER NURSING PROTOCOL Performed By: #### L 501.080 ####[facility] [address] [place], [address] FINGERSTICK GLU 107 mg/dL High 74-106 [facility] Comment on above: Result Comment: MAYRA GEMENT OF PATIENT CARE PER NURSING PROTOCOL Performed By: #### L 501.080 ####[facility] [address] [place], [address] FINGERSTICK GLU 175 mg/dL High 74-106 [facility] Comment on above: Result Comment: MAYRA GEMENT OF PATIENT CARE PER NURSING PROTOCOL Performed By: #### L 501.080 ####[facility] [address] [place], [address] Basic Metabolic Profile (BMP )on 11-03-2024 BUN/CRE 17.7 RATIO Normal 10-20 [facility] Comment on above: Performed By: #### L 100.0500, L500.2500, L501.5200 ####[facility] [address] [place], [address] CA,Total 9.1 mg/dL Normal 8.5-10.1 [facility] Comment on above: Performed By: #### L 100.0500, L500.2500, L501.5200 ####[facility] [address] [place], [address] Chloride [Moles/Vol] 105 mmol/L Normal 98-107 [facility] Comment on above: Performed By: #### L 100.0500, L500.2500, L501.5200 ####[facility] [address] [place], [address] CO2 [Moles/Vol] 29.0 mmol/L Normal 21.0-32.0 [facility] Comment on above: Performed By: #### L 100.0500, L500.2500, L501.5200 ####[facility] [address] [place], [address] Creatinine [Mass/Vol] 0.74 mg/dL Normal 0.70-1.30 [facility] Comment on above: Result Comment: The validity of the calculated GFR GFRAA in patients over70 years has not been determined. Clinical correlation isessential. Performed By: #### L 100.0500, L500.2500, L501.5200 ####[facility] [address] [place], [address] ECRCL 107.89 ml/min Normal [facility] Comment on above: Performed By: #### L 100.0500, L500.2500, L501.5200 ####[facility] [address] [place], [address] EST GFR - AA 138 mL/min Normal >60 [facility] Comment on above: Result Comment: Afri can Welsh GFR Calc Performed By: #### L 100.0500, L500.2500, L501.5200 ####[facility] [address] [place], [address] GAP 5 Normal 5-15 [facility] Comment on above: Performed By: #### L 100.0500, L500.2500, L501.5200 ####[facility] [address] [place], [address] GFR/1.73 sq M.predicted among non-blacks MDRD (S/P/Bld) [Vol rate/Area] 114 mL/min/{1.73_m2} Normal >60 [facility] Comment on above: Result Comment: Non- GFR Calc Performed By: #### L 100.0500, L500.2500, L501.5200 ####[facility] [address] [place], [address] Glucose [Mass/Vol] 129 mg/dL High 74-106 [facility] Comment on above: Result Comment: Fast ing Glucose result greater than or equal to 126 mg/dLsuggests DIABETES MELLITUS per A.D.A. criteria. Performed By: #### L 100.0500, L500.2500, L501.5200 ####[facility] [address] [place], [address] Potassium [Moles/Vol] 3.5 mmol/L Normal 3.5-5.1 [facility] Comment on above: Performed By: #### L 100.0500, L500.2500, L501.5200 ####[facility] [address] [place], [address] Sodium [Moles/Vol] 139 mmol/L Normal 136-145 [facility] Comment on above: Performed By: #### L 100.0500, L500.2500, L501.5200 ####[facility] [address] [place], [address] Urea nitrogen [Mass/Vol] 13 mg/dL Normal 7-18 [facility] Comment on above: Performed By: #### L 100.0500, L500.2500, L501.5200 ####[facility] [address] [place], [address] Bedside Glucoseon 11-03-2024 FINGERSTICK GLU 136 mg/dL High 74-106 [facility] Comment on above: Result Comment: MAYRA GEMENT OF PATIENT CARE PER NURSING PROTOCOL Performed By: #### L 501.080 ####[facility] [address] [place], [address] FINGERSTICK GLU 105 mg/dL Normal 74-106 [facility] Comment on above: Result Comment: MAYRA GEMENT OF PATIENT CARE PER NURSING PROTOCOL Performed By: #### L 501.080 ####[facility] [address] [place], [address] FINGERSTICK GLU 140 mg/dL High 74-106 [facility] Comment on above: Result Comment: MAYRA GEMENT OF PATIENT CARE PER NURSING PROTOCOL Performed By: #### L 501.080 ####[facility] [address] [place], [address] CBC-Complete Blood Cnt No Di ffon 11-03-2024 Erythrocyte distribution width (RBC) [Ratio] 12.5 % Normal 11.6-14.6 [facility] Comment on above: Performed By: #### L 100.0500, L500.2500, L501.5200 ####[facility] [address] [place], [address] Hematocrit (Bld) [Volume fraction] 42.4 % Normal 40-54 [facility] Comment on above: Performed By: #### L 100.0500, L500.2500, L501.5200 ####[facility] [address] [place], [address] Hemoglobin (Bld) [Mass/Vol] 14.1 g/dL Normal 13.0-16.5 [facility] Comment on above: Performed By: #### L 100.0500, L500.2500, L501.5200 ####[facility] [address] [place], [address] MCH (RBC) [Entitic mass] 30.7 pg Normal 27.0-32.0 [facility] Comment on above: Performed By: #### L 100.0500, L500.2500, L501.5200 ####[facility] [address] [place], [address] MCHC (RBC) [Mass/Vol] 33.3 g/dL Normal 32-36 [facility] Comment on above: Performed By: #### L 100.0500, L500.2500, L501.5200 ####[facility] [address] [place], [address] MCV (RBC) [Entitic vol] 92.4 fL Normal 80-94 [facility] Comment on above: Performed By: #### L 100.0500, L500.2500, L501.5200 ####[facility] [address] [place], [address] Platelet mean volume (Bld) [Entitic vol] 10.2 fL Normal 6.2-12.0 [facility] Comment on above: Performed By: #### L 100.0500, L500.2500, L501.5200 ####[facility] [address] [place], [address] Platelets (Bld) [#/Vol] 345 10*3/uL Normal 150-450 [facility] Comment on above: Performed By: #### L 100.0500, L500.2500, L501.5200 ####[facility] [address] [place], [address] RBC (Bld) [#/Vol] 4.59 10*6/uL Low 4.6-6.2 [facility] Comment on above: Performed By: #### L 100.0500, L500.2500, L501.5200 ####[facility] [address] [place], [address] RDW SD 42.3 fl Normal 35.1-43.9 [facility] Comment on above: Performed By: #### L 100.0500, L500.2500, L501.5200 ####[facility] [address] [place], [address] WBC (Bld) [#/Vol] 8.5 10*3/uL Normal 4.4-11.0 [facility] Comment on above: Performed By: #### L 100.0500, L500.2500, L501.5200 ####[facility] [address] [place], [address] Magnesiumon 11-03-2024 Magnesium [Mass/Vol] 2.2 mg/dL Normal 1.6-2.6 [facility] Comment on above: Performed By: #### L 100.0500, L500.2500, L501.5200 ####[facility] [address] [place], [address] Bedside Glucoseon 11-02-2024 FINGERSTICK GLU 125 mg/dL High 74-106 [facility] Comment on above: Result Comment: MAYRA GEMENT OF PATIENT CARE PER NURSING PROTOCOL Performed By: #### L 501.080 ####[facility] [address] [place], [address] FINGERSTICK GLU 137 mg/dL High 74-106 [facility] Comment on above: Result Comment: MAYRA GEMENT OF PATIENT CARE PER NURSING PROTOCOL Performed By: #### L 501.080 ####[facility] [address] [facility] [address] FINGERSTICK GLU 147 mg/dL High 74-106 [facility] Comment on above: Result Comment: MAYRA GEMENT OF PATIENT CARE PER NURSING PROTOCOL Performed By: #### L 501.080 ####[facility] [address] [facility] [address] Bedside Glucoseon 11-01-2024 FINGERSTICK GLU 117 mg/dL High 74-106 [facility] Comment on above: Result Comment: MAYRA GEMENT OF PATIENT CARE PER NURSING PROTOCOL Performed By: #### L 501.080 ####[facility] [address] [facility] [address] FINGERSTICK GLU 158 mg/dL High -106 [facility] Comment on above: Result Comment: MAYRA GEMENT OF PATIENT CARE PER NURSING PROTOCOL Performed By: #### L 501.080 ####[facility] [address] [facility] [address] FINGERSTICK GLU 143 mg/dL High -106 [facility] Comment on above: Result Comment: MAYRA GEMENT OF PATIENT CARE PER NURSING PROTOCOL Performed By: #### L 501.080 ####[facility] [address] [place], [address] Bedside Glucoseon 5 FINGERSTICK GLU 116 mg/dL High -106 [facility] Comment on above: Result Comment: MAYRA GEMENT OF PATIENT CARE PER NURSING PROTOCOL Performed By: #### L 501.080 ####[facility] [address] [place], [address] FINGERSTICK GLU 99 mg/dL Normal 74-106 [facility] Comment on above: Result Comment: MAYRA GEMENT OF PATIENT CARE PER NURSING PROTOCOL Performed By: #### L 501.080 ####[facility] [address] [place], [address] FINGERSTICK GLU 134 mg/dL High 74-106 [facility] Comment on above: Result Comment: MAYRA GEMENT OF PATIENT CARE PER NURSING PROTOCOL Performed By: #### L 501.080 ####[facility] [address] [place], [address] Bedside Glucoseon 10-30-2024 FINGERSTICK GLU 121 mg/dL High 74-106 [facility] Comment on above: Result Comment: MAYRA GEMENT OF PATIENT CARE PER NURSING PROTOCOL Performed By: #### L 501.080 ####[facility] [address] [place], [address] FINGERSTICK GLU 88 mg/dL Normal 74-106 [facility] Comment on above: Result Comment: MAYRA GEMENT OF PATIENT CARE PER NURSING PROTOCOL Performed By: #### L 501.080 ####[facility] [address] [place], [address] FINGERSTICK GLU 106 mg/dL Normal 74-106 [facility] Comment on above: Result Comment: MAYRA GEMENT OF PATIENT CARE PER NURSING PROTOCOL Performed By: #### L 501.080 ####[facility] [address] [place], [address] FINGERSTICK GLU 155 mg/dL High 74-106 [facility] Comment on above: Result Comment: MAYRA GEMENT OF PATIENT CARE PER NURSING PROTOCOL Performed By: #### L 501.080 ####[facility] [address] [place], [address] Bedside Glucoseon 10-29-2024 FINGERSTICK GLU 130 mg/dL High 74-106 [facility] Comment on above: Result Comment: MAYRA GEMENT OF PATIENT CARE PER NURSING PROTOCOL Performed By: #### L 501.080 ####[facility] [address] [place], [address] FINGERSTICK GLU 144 mg/dL High 74-106 [facility] Comment on above: Result Comment: MAYRA GEMENT OF PATIENT CARE PER NURSING PROTOCOL Performed By: #### L 501.080 ####[facility] [address] [place], [address] Bedside Glucoseon 10-28-2024 FINGERSTICK GLU 103 mg/dL Normal 74-106 [facility] Comment on above: Result Comment: MAYRA GEMENT OF PATIENT CARE PER NURSING PROTOCOL Performed By: #### L 501.080 ####[facility] [address] [place], [address] FINGERSTICK GLU 116 mg/dL High -106 [facility] Comment on above: Result Comment: MAYRA GEMENT OF PATIENT CARE PER NURSING PROTOCOL Performed By: #### L 501.080 ####[facility] [address] [place], [address] FINGERSTICK GLU 137 mg/dL High 74-106 [facility] Comment on above: Result Comment: MAYRA GEMENT OF PATIENT CARE PER NURSING PROTOCOL Performed By: #### L 501.080 ####[facility] [address] [place], [address] FINGERSTICK GLU 146 mg/dL High -106 [facility] Comment on above: Result Comment: MAYRA GEMENT OF PATIENT CARE PER NURSING PROTOCOL Performed By: #### L 501.080 ####[facility] [address] [place], [address] Bedside Glucoseon 10-27-2024 FINGERSTICK GLU 101 mg/dL Normal 74-106 [facility] Comment on above: Result Comment: MAYRA GEMENT OF PATIENT CARE PER NURSING PROTOCOL Performed By: #### L 501.080 ####[facility] [address] [place], [address] FINGERSTICK GLU 122 mg/dL High 74-106 [facility] Comment on above: Result Comment: MAYRA GEMENT OF PATIENT CARE PER NURSING PROTOCOL Performed By: #### L 501.080 ####[facility] [address] [place], [address] FINGERSTICK GLU 81 mg/dL Normal 74-106 [facility] Comment on above: Result Comment: MAYRA GEMENT OF PATIENT CARE PER NURSING PROTOCOL Performed By: #### L 501.080 ####[facility] [address] [place], [address] FINGERSTICK GLU 178 mg/dL High 74-106 [facility] Comment on above: Result Comment: MAYRA GEMENT OF PATIENT CARE PER NURSING PROTOCOL Performed By: #### L 501.080 ####[facility] [address] [place], [address] Bedside Glucoseon 10-26-2024 FINGERSTICK GLU 123 mg/dL High 74-106 [facility] Comment on above: Result Comment: MAYRA GEMENT OF PATIENT CARE PER NURSING PROTOCOL Performed By: #### L 501.080 ####[facility] [address] [place], [address] FINGERSTICK GLU 120 mg/dL High -106 [facility] Comment on above: Result Comment: MAYRA GEMENT OF PATIENT CARE PER NURSING PROTOCOL Performed By: #### L 501.080 ####[facility] [address] [place], [address] FINGERSTICK GLU 114 mg/dL High 74-106 [facility] Comment on above: Result Comment: MAYRA GEMENT OF PATIENT CARE PER NURSING PROTOCOL Performed By: #### L 501.080 ####[facility] [address] [place], [address] FINGERSTICK GLU 59 mg/dL Low 74-106 [facility] Comment on above: Result Comment: MAYRA GEMENT OF PATIENT CARE PER NURSING PROTOCOL Performed By: #### L 501.080 ####[facility] [address] [place], [address] FINGERSTICK GLU 164 mg/dL High 74-106 [facility] Comment on above: Result Comment: MAYRA GEMENT OF PATIENT CARE PER NURSING PROTOCOL Performed By: #### L 501.080 ####[facility] [address] [place], [address] Bedside Glucoseon 10-25-2024 FINGERSTICK GLU 93 mg/dL Normal 74-106 [facility] Comment on above: Result Comment: MAYRA GEMENT OF PATIENT CARE PER NURSING PROTOCOL Performed By: #### L 501.080 ####[facility] [address] [place], [address] FINGERSTICK GLU 131 mg/dL High 74-106 [facility] Comment on above: Result Comment: MAYRA GEMENT OF PATIENT CARE PER NURSING PROTOCOL Performed By: #### L 501.080 ####[facility] [address] [place], [address] FINGERSTICK GLU 114 mg/dL High 74-106 [facility] Comment on above: Result Comment: MAYRA GEMENT OF PATIENT CARE PER NURSING PROTOCOL Performed By: #### L 501.080 ####[facility] [address] [place], [address] FINGERSTICK GLU 170 mg/dL High 74-106 [facility] Comment on above: Result Comment: MAYRA GEMENT OF PATIENT CARE PER NURSING PROTOCOL Performed By: #### L 501.080 ####[facility] [address] [place], [address] Bedside Glucoseon 10-24-2024 FINGERSTICK GLU 121 mg/dL High 74-106 [facility] Comment on above: Result Comment: MAYRA GEMENT OF PATIENT CARE PER NURSING PROTOCOL Performed By: #### L 501.080 ####[facility] [address] [place], [address] FINGERSTICK GLU 117 mg/dL High 74-106 [facility] Comment on above: Result Comment: MAYRA GEMENT OF PATIENT CARE PER NURSING PROTOCOL Performed By: #### L 501.080 ####[facility] [address] [place], [address] FINGERSTICK GLU 101 mg/dL Normal 74-106 [facility] Comment on above: Result Comment: MAYRA GEMENT OF PATIENT CARE PER NURSING PROTOCOL Performed By: #### L 501.080 ####[facility] [address] [place], [address] FINGERSTICK GLU 172 mg/dL High -106 [facility] Comment on above: Result Comment: MAYRA GEMENT OF PATIENT CARE PER NURSING PROTOCOL Performed By: #### L 501.080 ####[facility] [address] [place], [address] FINGERSTICK GLU 129 mg/dL High 74-106 [facility] Comment on above: Result Comment: MAYRA GEMENT OF PATIENT CARE PER NURSING PROTOCOL Performed By: #### L 501.080 ####[facility] [address] [place], [address] Bedside Glucoseon 10-23-2024 FINGERSTICK GLU 109 mg/dL High 74-106 [facility] Comment on above: Result Comment: MAYRA GEMENT OF PATIENT CARE PER NURSING PROTOCOL Performed By: #### L 501.080 ####[facility] [address] [place], [address] FINGERSTICK GLU 131 mg/dL High 74-106 [facility] Comment on above: Result Comment: MAYRA GEMENT OF PATIENT CARE PER NURSING PROTOCOL Performed By: #### L 501.080 ####[facility] [address] [place], [address] FINGERSTICK GLU 89 mg/dL Normal 74-106 [facility] Comment on above: Result Comment: MAYRA GEMENT OF PATIENT CARE PER NURSING PROTOCOL Performed By: #### L 501.080 ####[facility] [address] [place], [address] FINGERSTICK GLU 205 mg/dL High 74-106 [facility] Comment on above: Result Comment: MAYRA GEMENT OF PATIENT CARE PER NURSING PROTOCOL Performed By: #### L 501.080 ####[facility] [address] [place], [address] FINGERSTICK GLU 159 mg/dL High 74-106 [facility] Comment on above: Result Comment: MAYRA GEMENT OF PATIENT CARE PER NURSING PROTOCOL Performed By: #### L 501.080 ####[facility] [address] [place], [address] Basic Metabolic Profile (BMP )on 10-22-2024 BUN/CRE 17.0 RATIO Normal 10-20 [facility] Comment on above: Performed By: #### L 100.0100, L500.2500 ####[facility] [address] [place], [address] CA,Total 9.5 mg/dL Normal 8.5-10.1 [facility] Comment on above: Performed By: #### L 100.0100, L500.2500 ####[facility] [address] [place], [address] Chloride [Moles/Vol] 103 mmol/L Normal 98-107 [facility] Comment on above: Performed By: #### L 100.0100, L500.2500 ####[facility] [address] [place], [address] CO2 [Moles/Vol] 23.0 mmol/L Normal 21.0-32.0 [facility] Comment on above: Performed By: #### L 100.0100, L500.2500 ####[facility] [address] [place], [address] Creatinine [Mass/Vol] 0.88 mg/dL Normal 0.70-1.30 [facility] Comment on above: Result Comment: The validity of the calculated GFR GFRAA in patients over70 years has not been determined. Clinical correlation isessential. Performed By: #### L 100.0100, L500.2500 ####[facility] [address] [place], [address] ECRCL 91.02 ml/min Normal [facility] Comment on above: Performed By: #### L 100.0100, L500.2500 ####[facility] [address] [place], [address] EST GFR - AA 111 mL/min Normal >60 [facility] Comment on above: Result Comment: Afri can Welsh GFR Calc Performed By: #### L 100.0100, L500.2500 ####[facility] [address] [place], [address] GAP 9 Normal 5-15 [facility] Comment on above: Performed By: #### L 100.0100, L500.2500 ####[facility] [address] [place], [address] GFR/1.73 sq M.predicted among non-blacks MDRD (S/P/Bld) [Vol rate/Area] 92 mL/min/{1.73_m2} Normal >60 [facility] Comment on above: Result Comment: Non- GFR Calc Performed By: #### L 100.0100, L500.2500 ####[facility] [address] [place], [address] Glucose [Mass/Vol] 121 mg/dL High 74-106 [facility] Comment on above: Result Comment: Fast ing Glucose result from 100 to 125 mg/dLsuggests IMPAIRED HOMEOSTASIS per A.D.A. criteria. Performed By: #### L 100.0100, L500.2500 ####[facility] [address] [place], [address] Potassium [Moles/Vol] 3.6 mmol/L Normal 3.5-5.1 [facility] Comment on above: Performed By: #### L 100.0100, L500.2500 ####[facility] [address] [place], [address] Sodium [Moles/Vol] 136 mmol/L Normal 136-145 [facility] Comment on above: Performed By: #### L 100.0100, L500.2500 ####[facility] [address] [place], [address] Urea nitrogen [Mass/Vol] 15 mg/dL Normal 7-18 [facility] Comment on above: Performed By: #### L 100.0100, L500.2500 ####[facility] [address] [place], [address] Bedside Glucoseon 10-22-2024 FINGERSTICK GLU 114 mg/dL High 74-106 [facility] Comment on above: Result Comment: MAYRA LISA OF PATIENT CARE PER NURSING PROTOCOL Performed By: #### L 501.080 ####[facility] [address] [place], [address] FINGERSTICK GLU 144 mg/dL High 74-106 [facility] Comment on above: Result Comment: MAYRA GEMENT OF PATIENT CARE PER NURSING PROTOCOL Performed By: #### L 501.080 ####[facility] [address] [place], [address] FINGERSTICK GLU 113 mg/dL High 74-106 [facility] Comment on above: Result Comment: MAYRA GEMENT OF PATIENT CARE PER NURSING PROTOCOL Performed By: #### L 501.080 ####[facility] [address] [place], [address] FINGERSTICK GLU 209 mg/dL High 74-106 [facility] Comment on above: Result Comment: MAYRA GEMENT OF PATIENT CARE PER NURSING PROTOCOL Performed By: #### L 501.080 ####[facility] [address] [place], [address] CBC W/Diff, Automatedon 02-09 11-2024 Absolute Lymph 2.34 X10 3/uL Normal 0.83-4.51 [facility] Comment on above: Performed By: #### L 100.0100, L500.2500 ####[facility] [address] [place], [address] Absolute Neut 7.0 X10 3/uL Normal 2.0-7.7 [facility] Comment on above: Performed By: #### L 100.0100, L500.2500 ####[facility] [address] [place], [address] Basophils/100 WBC (Bld) 0.6 % Normal 0-1 [facility] Comment on above: Performed By: #### L 100.0100, L500.2500 ####[facility] [address] [place], [address] Eosinophils/100 WBC (Bld) 1.0 % Normal 0-5 [facility] Comment on above: Performed By: #### L 100.0100, L500.2500 ####[facility] [address] [place], [address] Erythrocyte distribution width (RBC) [Ratio] 12.2 % Normal 11.6-14.6 [facility] Comment on above: Performed By: #### L 100.0100, L500.2500 ####[facility] [address] [place], [address] Hematocrit (Bld) [Volume fraction] 44.4 % Normal 40-54 [facility] Comment on above: Performed By: #### L 100.0100, L500.2500 ####[facility] [address] [place], [address] Hemoglobin (Bld) [Mass/Vol] 15.1 g/dL Normal 13.0-16.5 [facility] Comment on above: Performed By: #### L 100.0100, L500.2500 ####[facility] [address] [place], [address] IG% 0.700 Normal 0.0-0.9 [facility] Comment on above: Result Comment: IG% - Immature Granulocytes (promyelocytes, myelocytes andmetamyelocytes) > 1% indicates that a LEFT SHIFT is Present. Performed By: #### L 100.0100, L500.2500 ####[facility] [address] [place], [address] Lymphocytes/100 WBC (Bld) 22.3 % Normal 19-41 [facility] Comment on above: Performed By: #### L 100.0100, L500.2500 ####[facility] [address] [place], [address] MCH (RBC) [Entitic mass] 31.0 pg Normal 27.0-32.0 [facility] Comment on above: Performed By: #### L 100.0100, L500.2500 ####[facility] [address] [place], [address] MCHC (RBC) [Mass/Vol] 34.0 g/dL Normal 32-36 [facility] Comment on above: Performed By: #### L 100.0100, L500.2500 ####[facility] [address] [place], [address] MCV (RBC) [Entitic vol] 91.2 fL Normal 80-94 [facility] Comment on above: Performed By: #### L 100.0100, L500.2500 ####[facility] [address] [place], [address] Monocytes/100 WBC (Bld) 9.1 % Normal 0-10 [facility] Comment on above: Performed By: #### L 100.0100, L500.2500 ####[facility] [address] [place], [address] Neutrophils/100 WBC (Bld) 66.3 % Normal 47-70 [facility] Comment on above: Performed By: #### L 100.0100, L500.2500 ####[facility] [address] [place], [address] Nucleated RBC (Bld) [#/Vol] 0 10*3/uL Normal 0-5 [facility] Comment on above: Performed By: #### L 100.0100, L500.2500 ####[facility] [address] [place], [address] Platelet mean volume (Bld) [Entitic vol] 10.3 fL Normal 6.2-12.0 [facility] Comment on above: Performed By: #### L 100.0100, L500.2500 ####[facility] [address] [place], [address] Platelets (Bld) [#/Vol] 319 10*3/uL Normal 150-450 [facility] Comment on above: Performed By: #### L 100.0100, L500.2500 ####[facility] [address] [place], [address] RBC (Bld) [#/Vol] 4.87 10*6/uL Normal 4.6-6.2 [facility] Comment on above: Performed By: #### L 100.0100, L500.2500 ####[facility] [address] [place], [address] RDW SD 40.7 fl Normal 35.1-43.9 [facility] Comment on above: Performed By: #### L 100.0100, L500.2500 ####[facility] [address] [place], [address] WBC (Bld) [#/Vol] 10.5 10*3/uL Normal 4.4-11.0 [facility] Comment on above: Performed By: #### L 100.0100, L500.2500 ####[facility] [address] [place], [address] Urinalysis, Completeon 10-22 Mucus Ql (Urine sed) 1+ /hpf Normal [facility] Comment on above: Order Comment: VALERIA TER SPECIMEN Performed By: #### L 400.0001 ####[facility] [address] [place], [address] RBC 0-5 SEEN Normal 0-5 [facility] Comment on above: Order Comment: VALERIA TER SPECIMEN Performed By: #### L 400.0001 ####[facility] [address] [place], [address] WBC 0-5 SEEN Normal 0-5 [facility] Comment on above: Order Comment: VALERIA TER SPECIMEN Performed By: #### L 400.0001 ####[facility] [address] [place], [address] BACTERIA 0 SEEN Normal None Seen [facility] Comment on above: Order Comment: VALERIA TER SPECIMEN Performed By: #### L 400.0001 ####[facility] [address] [place], [address] EPI,SQUAMOUS 0 SEEN Normal 0-5 [facility] Comment on above: Order Comment: VALERIA TER SPECIMEN Performed By: #### L 400.0001 ####[facility] [address] [place], [address] Bedside Glucoseon 10-21-2024 FINGERSTICK GLU 101 mg/dL Normal 74-106 [facility] Comment on above: Result Comment: MAYRA GEMENT OF PATIENT CARE PER NURSING PROTOCOL Performed By: #### L 501.080 ####[facility] [address] [place], [address] FINGERSTICK GLU 140 mg/dL High 74-106 [facility] Comment on above: Result Comment: MAYRA GEMENT OF PATIENT CARE PER NURSING PROTOCOL Performed By: #### L 501.080 ####[facility] [address] [place], [address] FINGERSTICK GLU 110 mg/dL High 74-106 [facility] Comment on above: Result Comment: MAYRA GEMENT OF PATIENT CARE PER NURSING PROTOCOL Performed By: #### L 501.080 ####[facility] [address] [place], [address] FINGERSTICK GLU 214 mg/dL High -106 [facility] Comment on above: Result Comment: MAYRA GEMENT OF PATIENT CARE PER NURSING PROTOCOL Performed By: #### L 501.080 ####[facility] [address] [place], [address] Bedside Glucoseon 10-20-2024 FINGERSTICK GLU 110 mg/dL High 74-106 [facility] Comment on above: Result Comment: MAYRA GEMENT OF PATIENT CARE PER NURSING PROTOCOL Performed By: #### L 501.080 ####[facility] [address] [place], [address] FINGERSTICK GLU 142 mg/dL High 74-106 [facility] Comment on above: Result Comment: MAYRA GEMENT OF PATIENT CARE PER NURSING PROTOCOL Performed By: #### L 501.080 ####[facility] [address] [facility] [address] FINGERSTICK GLU 158 mg/dL High 74-106 [facility] Comment on above: Result Comment: MAYRA GEMENT OF PATIENT CARE PER NURSING PROTOCOL Performed By: #### L 501.080 ####[facility] [address] [facility] [address] FINGERSTICK GLU 188 mg/dL High 74-106 [facility] Comment on above: Result Comment: MAYRA GEMENT OF PATIENT CARE PER NURSING PROTOCOL Performed By: #### L 501.080 ####[facility] [address] [place], [address] Modified Barium Swallow Stud yon 10-20-2024 Modified Barium Swallow Study Normal [facility] Bedside Glucoseon 10-19-2024 FINGERSTICK GLU 108 mg/dL High 74-106 [facility] Comment on above: Result Comment: MAYRA GEMENT OF PATIENT CARE PER NURSING PROTOCOL Performed By: #### L 501.080 ####[facility] [address] [place], [address] FINGERSTICK GLU 178 mg/dL High 74-106 [facility] Comment on above: Result Comment: MAYRA GEMENT OF PATIENT CARE PER NURSING PROTOCOL Performed By: #### L 501.080 ####[facility] [address] [place], [address] FINGERSTICK GLU 148 mg/dL High 74-106 [facility] Comment on above: Result Comment: MAYRA GEMENT OF PATIENT CARE PER NURSING PROTOCOL Performed By: #### L 501.080 ####[facility] [address] [place], [address] FINGERSTICK GLU 225 mg/dL High 74-106 [facility] Comment on above: Result Comment: MAYRA GEMENT OF PATIENT CARE PER NURSING PROTOCOL Performed By: #### L 501.080 ####[facility] [address] [place], [address] Bedside Glucoseon 10-18-2024 FINGERSTICK GLU 192 mg/dL High [facility]106 [facility] Comment on above: Result Comment: MAYRA GEMENT OF PATIENT CARE PER NURSING PROTOCOL Performed By: #### L 501.080 ####[facility] [address] [place], [address] FINGERSTICK GLU 188 mg/dL High -106 [facility] Comment on above: Result Comment: MAYRA GEMENT OF PATIENT CARE PER NURSING PROTOCOL Performed By: #### L 501.080 ####[facility] [address] [place], [address] FINGERSTICK GLU 214 mg/dL High -106 [facility] Comment on above: Result Comment: MAYRA GEMENT OF PATIENT CARE PER NURSING PROTOCOL Performed By: #### L 501.080 ####[facility] [address] [place], [address] FINGERSTICK GLU 241 mg/dL [address] [facility] Comment on above: Result Comment: MAYRA GEMENT OF PATIENT CARE PER NURSING PROTOCOL Performed By: #### L 501.080 ####[facility] [address] [place], [address] FINGERSTICK GLU 220 mg/dL High 74-106 [facility] Comment on above: Result Comment: MAYRA GEMENT OF PATIENT CARE PER NURSING PROTOCOL Performed By: #### L 501.080 ####[facility] [address] [place], [address] Bedside Glucoseon 10-17-2024 FINGERSTICK GLU 245 mg/dL High -106 [facility] Comment on above: Result Comment: MAYRA GEMENT OF PATIENT CARE PER NURSING PROTOCOL Performed By: #### L 501.080 ####[facility] [address] [place], [address] FINGERSTICK GLU 228 mg/dL High -106 [facility] Comment on above: Result Comment: MAYRA GEMENT OF PATIENT CARE PER NURSING PROTOCOL Performed By: #### L 501.080 ####[facility] [address] [place], [address] FINGERSTICK GLU 281 mg/dL High -106 [facility] Comment on above: Result Comment: MAYRA GEMENT OF PATIENT CARE PER NURSING PROTOCOL Performed By: #### L 501.080 ####[facility] [address] [place], [address] CBC W/Diff, Automatedon Absolute Lymph 3.42 X10 3/uL Normal 0.83-4.51 [facility] Comment on above: Performed By: #### L 500.4050, L501.2300, L501.5200, L100.0100 ####[facility] [address] [place], [address] Absolute Neut 8.8 X10 3/uL High 2.0-7.7 [facility] Comment on above: Performed By: #### L 500.4050, L501.2300, L501.5200, L100.0100 ####[facility] [address] [place], [address] Basophils/100 WBC (Bld) 0.5 % Normal 0-1 [facility] Comment on above: Performed By: #### L 500.4050, L501.2300, L501.5200, L100.0100 ####[facility] [address] [place], [address] Eosinophils/100 WBC (Bld) 1.5 % Normal 0-5 [facility] Comment on above: Performed By: #### L 500.4050, L501.2300, L501.5200, L100.0100 ####[facility] [address] [place], [address] Erythrocyte distribution width (RBC) [Ratio] 12.3 % Normal 11.6-14.6 [facility] Comment on above: Performed By: #### L 500.4050, L501.2300, L501.5200, L100.0100 ####[facility] [address] [place], [address] Hematocrit (Bld) [Volume fraction] 46.7 % Normal 40-54 [facility] Comment on above: Performed By: #### L 500.4050, L501.2300, L501.5200, L100.0100 ####[facility] [address] [place], [address] Hemoglobin (Bld) [Mass/Vol] 16.0 g/dL Normal 13.0-16.5 [facility] Comment on above: Performed By: #### L 500.4050, L501.2300, L501.5200, L100.0100 ####[facility] [address] [place], [address] IG% 1.100 High 0.0-0.9 [facility] Comment on above: Result Comment: IG% - Immature Granulocytes (promyelocytes, myelocytes andmetamyelocytes) > 1% indicates that a LEFT SHIFT is Present. Performed By: #### L 500.4050, L501.2300, L501.5200, L100.0100 ####[facility] [address] [place], [address] Lymphocytes/100 WBC (Bld) 25.1 % Normal 19-41 [facility] Comment on above: Performed By: #### L 500.4050, L501.2300, L501.5200, L100.0100 ####[facility] [address] [place], [address] MCH (RBC) [Entitic mass] 30.8 pg Normal 27.0-32.0 [facility] Comment on above: Performed By: #### L 500.4050, L501.2300, L501.5200, L100.0100 ####[facility] [address] [place], [address] MCHC (RBC) [Mass/Vol] 34.3 g/dL Normal 32-36 [facility] Comment on above: Performed By: #### L 500.4050, L501.2300, L501.5200, L100.0100 ####[facility] [address] [place], [address] MCV (RBC) [Entitic vol] 89.8 fL Normal 80-94 [facility] Comment on above: Performed By: #### L 500.4050, L501.2300, L501.5200, L100.0100 ####[facility] [address] [place], [address] Monocytes/100 WBC (Bld) 7.4 % Normal 0-10 [facility] Comment on above: Performed By: #### L 500.4050, L501.2300, L501.5200, L100.0100 ####[facility] [address] [place], [address] Neutrophils/100 WBC (Bld) 64.4 % Normal 47-70 [facility] Comment on above: Performed By: #### L 500.4050, L501.2300, L501.5200, L100.0100 ####[facility] [address] [place], [address] Nucleated RBC (Bld) [#/Vol] 0 10*3/uL Normal 0-5 [facility] Comment on above: Performed By: #### L 500.4050, L501.2300, L501.5200, L100.0100 ####[facility] [address] [place], [address] Platelet mean volume (Bld) [Entitic vol] 10.3 fL Normal 6.2-12.0 [facility] Comment on above: Performed By: #### L 500.4050, L501.2300, L501.5200, L100.0100 ####[facility] [address] [place], [address] Platelets (Bld) [#/Vol] 384 10*3/uL Normal 150-450 [facility] Comment on above: Performed By: #### L 500.4050, L501.2300, L501.5200, L100.0100 ####[facility] [address] [place], [address] RBC (Bld) [#/Vol] 5.20 10*6/uL Normal 4.6-6.2 [facility] Comment on above: Performed By: #### L 500.4050, L501.2300, L501.5200, L100.0100 ####[facility] [address] [place], [address] RDW SD 40.3 fl Normal 35.1-43.9 [facility] Comment on above: Performed By: #### L 500.4050, L501.2300, L501.5200, L100.0100 ####[facility] [address] [place], [address] WBC (Bld) [#/Vol] 13.6 10*3/uL High 4.4-11.0 [facility] Comment on above: Performed By: #### L 500.4050, L501.2300, L501.5200, L100.0100 ####[facility] [address] [place], [address] Comprehensive Metabolic Prof waon 10-17-2024 Albumin [Mass/Vol] 3.7 g/dL Normal 3.2-5.0 [facility] Comment on above: Performed By: #### L 500.4050, L501.2300, L501.5200, L100.0100 ####[facility] [address] [place], [address] Albumin/Globulin [Mass ratio] 0.9 {ratio} Normal 0.9-2.4 [facility] Comment on above: Performed By: #### L 500.4050, L501.2300, L501.5200, L100.0100 ####[facility] [address] [place], [address] ALK P 59 U/L Normal 45-117 [facility] Comment on above: Performed By: #### L 500.4050, L501.2300, L501.5200, L100.0100 ####[facility] [address] [place], [address] ALT [Catalytic activity/Vol] 58 U/L Normal 16-61 [facility] Comment on above: Performed By: #### L 500.4050, L501.2300, L501.5200, L100.0100 ####[facility] [address] [place], [address] AST [Catalytic activity/Vol] 30 U/L Normal 15-37 [facility] Comment on above: Performed By: #### L 500.4050, L501.2300, L501.5200, L100.0100 ####[facility] [address] [place], [address] Bilirubin [Mass/Vol] 0.70 mg/dL Normal 0.20-1.00 [facility] Comment on above: Result Comment: For patients on eltrombopag therapy, use of Dimension [place] TBIL is not recommended. Performed By: #### L 500.4050, L501.2300, L501.5200, L100.0100 ####[facility] [address] [place], [address] BUN/CRE 25.8 RATIO High 10-20 [facility] Comment on above: Performed By: #### L 500.4050, L501.2300, L501.5200, L100.0100 ####[facility] [address] [place], [address] CA,Total 9.2 mg/dL Normal 8.5-10.1 [facility] Comment on above: Performed By: #### L 500.4050, L501.2300, L501.5200, L100.0100 ####[facility] [address] [place], [address] Chloride [Moles/Vol] 103 mmol/L Normal 98-107 [facility] Comment on above: Performed By: #### L 500.4050, L501.2300, L501.5200, L100.0100 ####[facility] [address] [place], [address] CO2 [Moles/Vol] 24.0 mmol/L Normal 21.0-32.0 [facility] Comment on above: Performed By: #### L 500.4050, L501.2300, L501.5200, L100.0100 ####[facility] [address] [place], [address] Creatinine [Mass/Vol] 0.85 mg/dL Normal 0.70-1.30 [facility] Comment on above: Result Comment: The validity of the calculated GFR GFRAA in patients over70 years has not been determined. Clinical correlation isessential. Performed By: #### L 500.4050, L501.2300, L501.5200, L100.0100 ####[facility] [address] [place], [address] ECRCL 94.53 ml/min Normal [facility] Comment on above: Performed By: #### L 500.4050, L501.2300, L501.5200, L100.0100 ####[facility] [address] [place], [address] EST GFR - AA 116 mL/min Normal >60 [facility] Comment on above: Result Comment: Afri can Welsh GFR Calc Performed By: #### L 500.4050, L501.2300, L501.5200, L100.0100 ####[facility] [address] [place], [address] GAP 9 Normal 5-15 [facility] Comment on above: Performed By: #### L 500.4050, L501.2300, L501.5200, L100.0100 ####[facility] [address] [place], [address] GFR/1.73 sq M.predicted among non-blacks MDRD (S/P/Bld) [Vol rate/Area] 96 mL/min/{1.73_m2} Normal >60 [facility] Comment on above: Result Comment: Non- GFR Calc Performed By: #### L 500.4050, L501.2300, L501.5200, L100.0100 ####[facility] [address] [place], [address] Globulin (S) [Mass/Vol] 4.0 g/dL Normal 2.2-4.2 [facility] Comment on above: Performed By: #### L 500.4050, L501.2300, L501.5200, L100.0100 ####[facility] [address] [place], [address] Glucose [Mass/Vol] 247 mg/dL High 74-106 [facility] Comment on above: Result Comment: Gluc ose result greater than or equal to 200 mg/dLsuggests DIABETES MELLITUS per A.D.A. criteria. Performed By: #### L 500.4050, L501.2300, L501.5200, L100.0100 ####[facility] [address] [place], [address] Potassium [Moles/Vol] 3.5 mmol/L Normal 3.5-5.1 [facility] Comment on above: Performed By: #### L 500.4050, L501.2300, L501.5200, L100.0100 ####[facility] [address] [place], [address] Sodium [Moles/Vol] 136 mmol/L Normal 136-145 [facility] Comment on above: Performed By: #### L 500.4050, L501.2300, L501.5200, L100.0100 ####[facility] [address] [place], [address] T PROT 7.7 g/dL Normal 6.4-8.2 [facility] Comment on above: Performed By: #### L 500.4050, L501.2300, L501.5200, L100.0100 ####[facility] [address] [place], [address] Urea nitrogen [Mass/Vol] 22 mg/dL High 7-18 [facility] Comment on above: Performed By: #### L 500.4050, L501.2300, L501.5200, L100.0100 ####[facility] [address] [place], [address] Magnesiumon 10-17-2024 Magnesium [Mass/Vol] 2.3 mg/dL Normal 1.6-2.6 [facility] Comment on above: Performed By: #### L 500.4050, L501.2300, L501.5200, L100.0100 ####[facility] [address] [place], [address] Phosphoruson 10-17-2024 Phosphate [Mass/Vol] 3.3 mg/dL Normal 2.5-4.9 [facility] Comment on above: Performed By: #### L 500.4050, L501.2300, L501.5200, L100.0100 ####[facility] [address] [place], [address] Protein+Creatinine Ratio,Uri neon 10-17-2024 PROT:CRE RATIO 60 mg/g CRE Normal 0-200 [facility] Comment on above: Performed By: #### L 501.0900 ####[facility] [address] [place], [address] Protein (U) [Mass/Vol] 9.5 mg/dL Normal <11.9 [facility] Comment on above: Performed By: #### L 501.0900 ####[facility] [address] [place], [address] UR CREAT 159.00 mg/dL Normal NO RANGE EST. [facility] Comment on above: Performed By: #### L 501.0900 ####[facility] [address] [place], [address] Bedside Glucoseon 10-16-2024 FINGERSTICK GLU 247 mg/dL High 74-106 [facility] Comment on above: Result Comment: MAYRA GEMENT OF PATIENT CARE PER NURSING PROTOCOL Performed By: #### L 501.080 ####[facility] [address] [place], [address] FINGERSTICK GLU 207 mg/dL High -106 [facility] Comment on above: Result Comment: MAYRA GEMENT OF PATIENT CARE PER NURSING PROTOCOL Performed By: #### L 501.080 ####[facility] [address] [place], [address] FINGERSTICK GLU 293 mg/dL High -106 [facility] Comment on above: Result Comment: MAYRA GEMENT OF PATIENT CARE PER NURSING PROTOCOL Performed By: #### L 501.080 ####[facility] [address] [place], [address] FINGERSTICK GLU 279 mg/dL High -106 [facility] Comment on above: Result Comment: MAYRA GEMENT OF PATIENT CARE PER NURSING PROTOCOL Performed By: #### L 501.080 ####[facility] [address] [place], [address] Discharge Instructionon 02-0 Discharge Instruction Normal [facility] Urinalysis, Completeon 10-16 RBC 0 SEEN Normal 0-5 [facility] Comment on above: Order Comment: BLADD ER TAP Performed By: #### L 400.0001 ####[facility] [address] [place], [address] WBC 0-5 SEEN Normal 0-5 [facility] Comment on above: Order Comment: BLADD ER TAP Performed By: #### L 400.0001 ####[facility] [address] [place], [address] BACTERIA 0 SEEN Normal None Seen [facility] Comment on above: Order Comment: BLADD ER TAP Performed By: #### L 400.0001 ####[facility] [address] [place], [address] EPI,SQUAMOUS 0 SEEN Normal 0-5 [facility] Comment on above: Order Comment: BLADD ER TAP Performed By: #### L 400.0001 ####[facility] [address] [place], [address] Mucus Ql (Urine sed) 0 SEEN Normal [facility] Comment on above: Order Comment: BLADD ER TAP Performed By: #### L 400.0001 ####[facility] [address] [place], [address] Basic Metabolic Profile (BMP )on 10-15-2024 BUN/CRE 17.5 RATIO Normal 10-20 [facility] Comment on above: Order Comment: Comme nts: NPO at [place] prior to lipid panel Performed By: #### L 100.0100, L500.2500, L500.4100 ####[facility] [address] [place], [address] CA,Total 9.5 mg/dL Normal 8.5-10.1 [facility] Comment on above: Order Comment: Comme nts: NPO at [place] prior to lipid panel Performed By: #### L 100.0100, L500.2500, L500.4100 ####[facility] [address] [place], [address] Chloride [Moles/Vol] 102 mmol/L Normal 98-107 [facility] Comment on above: Order Comment: Comme nts: NPO at [place] prior to lipid panel Performed By: #### L 100.0100, L500.2500, L500.4100 ####[facility] [address] [place], [address] CO2 [Moles/Vol] 23.0 mmol/L Normal 21.0-32.0 [facility] Comment on above: Order Comment: Comme nts: NPO at [place] prior to lipid panel Performed By: #### L 100.0100, L500.2500, L500.4100 ####[facility] [address] [place], [address] Creatinine [Mass/Vol] 0.86 mg/dL Normal 0.70-1.30 [facility] Comment on above: Order Comment: Comme nts: NPO at [place] prior to lipid panel Result Comment: The validity of the calculated GFR GFRAA in patients over70 years has not been determined. Clinical correlation isessential. Performed By: #### L 100.0100, L500.2500, L500.4100 ####[facility] [address] [place], [address] ECRCL 96.78 ml/min Normal [facility] Comment on above: Order Comment: Comme nts: NPO at [place] prior to lipid panel Performed By: #### L 100.0100, L500.2500, L500.4100 ####[facility] [address] [place], [address] EST GFR - AA 115 mL/min Normal >60 [facility] Comment on above: Order Comment: Comme nts: NPO at [place] prior to lipid panel Result Comment: Afri can Welsh GFR Calc Performed By: #### L 100.0100, L500.2500, L500.4100 ####[facility] [address] [place], [address] GAP 10 Normal 5-15 [facility] Comment on above: Order Comment: Comme nts: NPO at [place] prior to lipid panel Performed By: #### L 100.0100, L500.2500, L500.4100 ####[facility] [address] [place], [address] GFR/1.73 sq M.predicted among non-blacks MDRD (S/P/Bld) [Vol rate/Area] 95 mL/min/{1.73_m2} Normal >60 [facility] Comment on above: Order Comment: Comme nts: NPO at [place] prior to lipid panel Result Comment: Non- GFR Calc Performed By: #### L 100.0100, L500.2500, L500.4100 ####[facility] [address] [place], [address] Glucose [Mass/Vol] 274 mg/dL High 74-106 [facility] Comment on above: Order Comment: Comme nts: NPO at [place] prior to lipid panel Result Comment: Gluc ose result greater than or equal to 200 mg/dLsuggests DIABETES MELLITUS per A.D.A. criteria. Performed By: #### L 100.0100, L500.2500, L500.4100 ####[facility] [address] [place], [address] Potassium [Moles/Vol] 3.9 mmol/L Normal 3.5-5.1 [facility] Comment on above: Order Comment: Comme nts: NPO at [place] prior to lipid panel Performed By: #### L 100.0100, L500.2500, L500.4100 ####[facility] [address] [place], [address] Sodium [Moles/Vol] 135 mmol/L Low 136-145 [facility] Comment on above: Order Comment: Comme nts: NPO at [place] prior to lipid panel Performed By: #### L 100.0100, L500.2500, L500.4100 ####[facility] [address] [place], [address] Urea nitrogen [Mass/Vol] 15 mg/dL Normal 7-18 [facility] Comment on above: Order Comment: Comme nts: NPO at [place] prior to lipid panel Performed By: #### L 100.0100, L500.2500, L500.4100 ####[facility] [address] [place], [address] Bedside Glucoseon - FINGERSTICK GLU 274 mg/dL High -106 [facility] Comment on above: Result Comment: MAYRA GEMENT OF PATIENT CARE PER NURSING PROTOCOL Performed By: #### L 501.080 ####[facility] [address] [place], [address] FINGERSTICK GLU 194 mg/dL High [facility]106 [facility] Comment on above: Result Comment: MAYRA GEMENT OF PATIENT CARE PER NURSING PROTOCOL Performed By: #### L 501.080 ####[facility] [address] [place], [address] FINGERSTICK GLU 343 mg/dL High [facility]106 [facility] Comment on above: Result Comment: MAYRA GEMENT OF PATIENT CARE PER NURSING PROTOCOL Performed By: #### L 501.080 ####[facility] [address] [place], [address] FINGERSTICK GLU 299 mg/dL High [address] [place] [address] Comment on above: Result Comment: MAYRA GEMENT OF PATIENT CARE PER NURSING PROTOCOL Performed By: #### L 501.080 ####[facility] [address] [place], [address] FINGERSTICK GLU 294 mg/dL High [facility]106 [facility] Comment on above: Result Comment: MAYRA GEMENT OF PATIENT CARE PER NURSING PROTOCOL Performed By: #### L 501.080 ####[facility] [address] [place], [address] CBC W/Diff, Automatedon 02-0 Absolute Lymph 2.57 X10 3/uL Normal 0.83-4.51 [facility] Comment on above: Performed By: #### L 100.0100, L500.2500, L500.4100 ####[facility] [address] [place], [address] Absolute Neut 7.6 X10 3/uL Normal 2.0-7.7 [facility] Comment on above: Performed By: #### L 100.0100, L500.2500, L500.4100 ####[facility] [address] [place], [address] Basophils/100 WBC (Bld) 0.4 % Normal 0-1 [facility] Comment on above: Performed By: #### L 100.0100, L500.2500, L500.4100 ####[facility] [address] [place], [address] Eosinophils/100 WBC (Bld) 1.2 % Normal 0-5 [facility] Comment on above: Performed By: #### L 100.0100, L500.2500, L500.4100 ####[facility] [address] [place], [address] Erythrocyte distribution width (RBC) [Ratio] 12.1 % Normal 11.6-14.6 [facility] Comment on above: Performed By: #### L 100.0100, L500.2500, L500.4100 ####[facility] [address] [place], [address] Hematocrit (Bld) [Volume fraction] 46.1 % Normal 40-54 [facility] Comment on above: Performed By: #### L 100.0100, L500.2500, L500.4100 ####[facility] [address] [place], [address] Hemoglobin (Bld) [Mass/Vol] 15.8 g/dL Normal 13.0-16.5 [facility] Comment on above: Performed By: #### L 100.0100, L500.2500, L500.4100 ####[facility] [address] [place], [address] IG% 1.200 High 0.0-0.9 [facility] Comment on above: Result Comment: IG% - Immature Granulocytes (promyelocytes, myelocytes andmetamyelocytes) > 1% indicates that a LEFT SHIFT is Present. Performed By: #### L 100.0100, L500.2500, L500.4100 ####[facility] [address] [place], [address] Lymphocytes/100 WBC (Bld) 22.9 % Normal 19-41 [facility] Comment on above: Performed By: #### L 100.0100, L500.2500, L500.4100 ####[facility] [address] [place], [address] MCH (RBC) [Entitic mass] 30.9 pg Normal 27.0-32.0 [facility] Comment on above: Performed By: #### L 100.0100, L500.2500, L500.4100 ####[facility] [address] [place], [address] MCHC (RBC) [Mass/Vol] 34.3 g/dL Normal 32-36 [facility] Comment on above: Performed By: #### L 100.0100, L500.2500, L500.4100 ####[facility] [address] [place], [address] MCV (RBC) [Entitic vol] 90.2 fL Normal 80-94 [facility] Comment on above: Performed By: #### L 100.0100, L500.2500, L500.4100 ####[facility] [address] [place], [address] Monocytes/100 WBC (Bld) 6.4 % Normal 0-10 [facility] Comment on above: Performed By: #### L 100.0100, L500.2500, L500.4100 ####[facility] [address] [place], [address] Neutrophils/100 WBC (Bld) 67.9 % Normal 47-70 [facility] Comment on above: Performed By: #### L 100.0100, L500.2500, L500.4100 ####[facility] [address] [place], [address] Nucleated RBC (Bld) [#/Vol] 0 10*3/uL Normal 0-5 [facility] Comment on above: Performed By: #### L 100.0100, L500.2500, L500.4100 ####[facility] [address] [place], [address] Platelet mean volume (Bld) [Entitic vol] 10.2 fL Normal 6.2-12.0 [facility] Comment on above: Performed By: #### L 100.0100, L500.2500, L500.4100 ####[facility] [address] [place], [address] Platelets (Bld) [#/Vol] 355 10*3/uL Normal 150-450 [facility] Comment on above: Performed By: #### L 100.0100, L500.2500, L500.4100 ####[facility] [address] [place], [address] RBC (Bld) [#/Vol] 5.11 10*6/uL Normal 4.6-6.2 [facility] Comment on above: Performed By: #### L 100.0100, L500.2500, L500.4100 ####[facility] [address] [place], [address] RDW SD 39.7 fl Normal 35.1-43.9 [facility] Comment on above: Performed By: #### L 100.0100, L500.2500, L500.4100 ####[facility] [address] [place], [address] WBC (Bld) [#/Vol] 11.2 10*3/uL High 4.4-11.0 [facility] Comment on above: Performed By: #### L 100.0100, L500.2500, L500.4100 ####[facility] [address] [place], [address] Hemoglobin A1con 10-15-2024 HbA1c (Bld) [Mass fraction] 5.8 % High 3.8-5.6 [facility] Comment on above: Result Comment: Norm al < 5.7 % Prediabetic 5.7 - 6.4 % Diabetic >or= 6.5 % Please note range changes. Performed By: #### L 501.9985 ####[facility] [address] [place], [address] Lipid Profileon 10-15-2024 Cholesterol [Mass/Vol] 152 mg/dL Normal 200 [facility] Comment on above: Order Comment: Comme nts: NPO at [place] prior to lipid panel Result Comment: <200 mg/dL Desirable 200-240 mg/dL Borderline >240 mg/dL High Risk Performed By: #### L 100.0100, L500.2500, L500.4100 ####[facility] [address] [place], [address] Cholesterol in HDL [Mass/Vol] 36 mg/dL Low [facility] Comment on above: Order Comment: Comme nts: NPO at [place] prior to lipid panel Result Comment: The drugs N-Acetylcysteine and Metamizole may falselydepress this assay. Reference Range HDL <40 mg/dL Low HDL Cholesterol HDL >or= 60 mg/dL High HDL Cholesterol Performed By: #### L 100.0100, L500.2500, L500.4100 ####[facility] [address] [place], [address] LDL TNP Normal 0-130 [facility] Comment on above: Order Comment: Comme nts: NPO at [place] prior to lipid panel Performed By: #### L 100.0100, L500.2500, L500.4100 ####[facility] [address] [place], [address] Triglyceride [Mass/Vol] 451 mg/dL High [facility] Comment on above: Order Comment: Comme nts: [...] Performed By: #### L 100.0100, L500.2500, L500.4100 ####[facility] [address] [place], [address] VLDL TNP Normal 5-40 [facility] Comment on above: Order Comment: Comme nts: NPO at [place] prior to lipid panel Performed By: #### L 100.0100, L500.2500, L500.4100 ####[facility] [address] [place], [address] MR/CON.PCM.NEon 10-15-2024 MR/CON.PCM.NE Normal [facility] STROKE Brain/Head without Co nton 10-15-2024 STROKE Brain/Head without Cont Normal [facility] 12 Lead EKGon 10-14-2024 12 Lead EKG Normal [facility] Basic Metabolic Profile (BMP )on 10-14-2024 BUN/CRE 23.1 RATIO High 10-20 [facility] Comment on above: Order Comment: 'TROP ' Serial specimen #1, #2 or #3: 1 Performed By: #### L 300.4310, L501.4020, L100.0100, L500.2500, L300.3900 ####[facility] [address] [place], [address] CA,Total 9.6 mg/dL Normal 8.5-10.1 [facility] Comment on above: Order Comment: 'TROP ' Serial specimen #1, #2 or #3: 1 Performed By: #### L 300.4310, L501.4020, L100.0100, L500.2500, L300.3900 ####[facility] [address] [place], [address] Chloride [Moles/Vol] 103 mmol/L Normal 98-107 [facility] Comment on above: Order Comment: 'TROP ' Serial specimen #1, #2 or #3: 1 Performed By: #### L 300.4310, L501.4020, L100.0100, L500.2500, L300.3900 ####[facility] [address] [place], [address] CO2 [Moles/Vol] 27.0 mmol/L Normal 21.0-32.0 [facility] Comment on above: Order Comment: 'TROP ' Serial specimen #1, #2 or #3: 1 Performed By: #### L 300.4310, L501.4020, L100.0100, L500.2500, L300.3900 ####[facility] [address] [place], [address] Creatinine [Mass/Vol] 0.82 mg/dL Normal 0.70-1.30 [facility] Comment on above: Order Comment: 'TROP ' Serial specimen #1, #2 or #3: 1 Result Comment: The validity of the calculated GFR GFRAA in patients over70 years has not been determined. Clinical correlation isessential. Performed By: #### L 300.4310, L501.4020, L100.0100, L500.2500, L300.3900 ####[facility] [address] [place], [address] ECRCL 103.06 ml/min Normal [facility] Comment on above: Order Comment: 'TROP ' Serial specimen #1, #2 or #3: 1 Performed By: #### L 300.4310, L501.4020, L100.0100, L500.2500, L300.3900 ####[facility] [address] [place], [address] EST GFR - AA 121 mL/min Normal >60 [facility] Comment on above: Order Comment: 'TROP ' Serial specimen #1, #2 or #3: 1 Result Comment: Afri can Welsh GFR Calc Performed By: #### L 300.4310, L501.4020, L100.0100, L500.2500, L300.3900 ####[facility] [address] [place], [address] GAP 8 Normal 5-15 [facility] Comment on above: Order Comment: 'TROP ' Serial specimen #1, #2 or #3: 1 Performed By: #### L 300.4310, L501.4020, L100.0100, L500.2500, L300.3900 ####[facility] [address] [place], [address] GFR/1.73 sq M.predicted among non-blacks MDRD (S/P/Bld) [Vol rate/Area] 100 mL/min/{1.73_m2} Normal >60 [facility] Comment on above: Order Comment: 'TROP ' Serial specimen #1, #2 or #3: 1 Result Comment: Non- GFR Calc Performed By: #### L 300.4310, L501.4020, L100.0100, L500.2500, L300.3900 ####[facility] [address] [place], [address] Glucose [Mass/Vol] 222 mg/dL High 74-106 [facility] Comment on above: Order Comment: 'TROP ' Serial specimen #1, #2 or #3: 1 Result Comment: Gluc ose result greater than or equal to 200 mg/dLsuggests DIABETES MELLITUS per A.D.A. criteria. Performed By: #### L 300.4310, L501.4020, L100.0100, L500.2500, L300.3900 ####[facility] [address] [place], [address] Potassium [Moles/Vol] 4.0 mmol/L Normal 3.5-5.1 [facility] Comment on above: Order Comment: 'TROP ' Serial specimen #1, #2 or #3: 1 Performed By: #### L 300.4310, L501.4020, L100.0100, L500.2500, L300.3900 ####[facility] [address] [place], [address] Sodium [Moles/Vol] 138 mmol/L Normal 136-145 [facility] Comment on above: Order Comment: 'TROP ' Serial specimen #1, #2 or #3: 1 Performed By: #### L 300.4310, L501.4020, L100.0100, L500.2500, L300.3900 ####[facility] [address] [place], [address] Urea nitrogen [Mass/Vol] 19 mg/dL High 7-18 [facility] Comment on above: Order Comment: 'TROP ' Serial specimen #1, #2 or #3: 1 Performed By: #### L 300.4310, L501.4020, L100.0100, L500.2500, L300.3900 ####[facility] [address] [place], [address] Bedside Glucoseon 10-14-2024 FINGERSTICK GLU 206 mg/dL High 74-106 [facility] Comment on above: Result Comment: MAYRA GEMENT OF PATIENT CARE PER NURSING PROTOCOL Performed By: #### L 501.080 ####[facility] [address] [place], [address] FINGERSTICK GLU 189 mg/dL High 74-106 [facility] Comment on above: Result Comment: MAYRA GEMENT OF PATIENT CARE PER NURSING PROTOCOL Performed By: #### L 501.080 ####[facility] [address] [place], [address] FINGERSTICK GLU 220 mg/dL High 74-106 [facility] Comment on above: Result Comment: MAYRA GEMENT OF PATIENT CARE PER NURSING PROTOCOL Performed By: #### L 501.080 ####[facility] [address] [place], [address] Brain without Contraston -2024 Brain without Contrast Normal [facility] CBC W/Diff, Automatedon - Absolute Lymph 2.13 X10 3/uL Normal 0.83-4.51 [facility] Comment on above: Performed By: #### L 300.4310, L501.4020, L100.0100, L500.2500, L300.3900 ####[facility] [address] [place], [address] Absolute Neut 5.4 X10 3/uL Normal 2.0-7.7 [facility] Comment on above: Performed By: #### L 300.4310, L501.4020, L100.0100, L500.2500, L300.3900 ####[facility] [address] [place], [address] Basophils/100 WBC (Bld) 0.8 % Normal 0-1 [facility] Comment on above: Performed By: #### L 300.4310, L501.4020, L100.0100, L500.2500, L300.3900 ####[facility] [address] [place], [address] Eosinophils/100 WBC (Bld) 2.7 % Normal 0-5 [facility] Comment on above: Performed By: #### L 300.4310, L501.4020, L100.0100, L500.2500, L300.3900 ####[facility] [address] [place], [address] Erythrocyte distribution width (RBC) [Ratio] 12.2 % Normal 11.6-14.6 [facility] Comment on above: Performed By: #### L 300.4310, L501.4020, L100.0100, L500.2500, L300.3900 ####[facility] [address] [place], [address] Hematocrit (Bld) [Volume fraction] 44.0 % Normal 40-54 [facility] Comment on above: Performed By: #### L 300.4310, L501.4020, L100.0100, L500.2500, L300.3900 ####[facility] [address] [place], [address] Hemoglobin (Bld) [Mass/Vol] 15.0 g/dL Normal 13.0-16.5 [facility] Comment on above: Performed By: #### L 300.4310, L501.4020, L100.0100, L500.2500, L300.3900 ####[facility] [address] [place], [address] IG% 1.600 High 0.0-0.9 [facility] Comment on above: Result Comment: IG% - Immature Granulocytes (promyelocytes, myelocytes andmetamyelocytes) > 1% indicates that a LEFT SHIFT is Present. Performed By: #### L 300.4310, L501.4020, L100.0100, L500.2500, L300.3900 ####[facility] [address] [place], [address] Lymphocytes/100 WBC (Bld) 24.4 % Normal 19-41 [facility] Comment on above: Performed By: #### L 300.4310, L501.4020, L100.0100, L500.2500, L300.3900 ####[facility] [address] [place], [address] MCH (RBC) [Entitic mass] 31.3 pg Normal 27.0-32.0 [facility] Comment on above: Performed By: #### L 300.4310, L501.4020, L100.0100, L500.2500, L300.3900 ####[facility] [address] [place], [address] MCHC (RBC) [Mass/Vol] 34.1 g/dL Normal 32-36 [facility] Comment on above: Performed By: #### L 300.4310, L501.4020, L100.0100, L500.2500, L300.3900 ####[facility] [address] [place], [address] MCV (RBC) [Entitic vol] 91.9 fL Normal 80-94 [facility] Comment on above: Performed By: #### L 300.4310, L501.4020, L100.0100, L500.2500, L300.3900 ####[facility] [address] [place], [address] Monocytes/100 WBC (Bld) 8.6 % Normal 0-10 [facility] Comment on above: Performed By: #### L 300.4310, L501.4020, L100.0100, L500.2500, L300.3900 ####[facility] [address] [place], [address] Neutrophils/100 WBC (Bld) 61.9 % Normal 47-70 [facility] Comment on above: Performed By: #### L 300.4310, L501.4020, L100.0100, L500.2500, L300.3900 ####[facility] [address] [place], [address] Nucleated RBC (Bld) [#/Vol] 0 10*3/uL Normal 0-5 [facility] Comment on above: Performed By: #### L 300.4310, L501.4020, L100.0100, L500.2500, L300.3900 ####[facility] [address] [place], [address] Platelet mean volume (Bld) [Entitic vol] 10.2 fL Normal 6.2-12.0 [facility] Comment on above: Performed By: #### L 300.4310, L501.4020, L100.0100, L500.2500, L300.3900 ####[facility] [address] [place], [address] Platelets (Bld) [#/Vol] 293 10*3/uL Normal 150-450 [facility] Comment on above: Performed By: #### L 300.4310, L501.4020, L100.0100, L500.2500, L300.3900 ####[facility] [address] [place], [address] RBC (Bld) [#/Vol] 4.79 10*6/uL Normal 4.6-6.2 [facility] Comment on above: Performed By: #### L 300.4310, L501.4020, L100.0100, L500.2500, L300.3900 ####[facility] [address] [place], [address] RDW SD 40.9 fl Normal 35.1-43.9 [facility] Comment on above: Performed By: #### L 300.4310, L501.4020, L100.0100, L500.2500, L300.3900 ####[facility] [address] [place], [address] WBC (Bld) [#/Vol] 8.7 10*3/uL Normal 4.4-11.0 [facility] Comment on above: Performed By: #### L 300.4310, L501.4020, L100.0100, L500.2500, L300.3900 ####[facility] [address] [place], [address] Chest 1 Viewon 10-14-2024 Chest 1 View Normal [facility] Echo Complete W/ Contraston 10-14-2024 Echo Complete W/ Contrast Normal [facility] Emergency Department Summary on 10-14-2024 Emergency Department Summary Normal [facility] H AND P Exam - Hospitaliston 10-14-2024 H&P Exam - Hospitalist Normal [facility] L501.4020on 10-14-2024 TROPONIN-I HS 11 pg/mL Normal 3.0-78.0 [facility] Comment on above: Order Comment: 'TROP ' Serial specimen #1, #2 or #3: 1 Result Comment: Plea se Note: New Test Units and Gender Specific Reference Ranges. For more information see Policy Stat Procedure [place] High Sensitivity Troponin (TNIH) and attachments. Performed By: #### L 300.4310, L501.4020, L100.0100, L500.2500, L300.3900 ####[facility] [address] [place], [address] MRA Head ONLY without Contra ston 10-14-2024 MRA Head ONLY without Contrast Normal [facility] MRA Neck WITH and W/O Contra ston 10-14-2024 MRA Neck WITH and W/O Contrast Normal [facility] Partial Thromboplast Timeon 10-14-2024 aPTT Coag (Bld) [Time] 23.9 s Low 24.1-36.2 [facility] Comment on above: Performed By: #### L 300.4310, L501.4020, L100.0100, L500.2500, L300.3900 ####[facility] [address] [place], [address] Prothrombin Time w/INRon INR Coag (PPP) [Relative time] 1.0 {INR} Normal [facility] Comment on above: Performed By: #### L 300.4310, L501.4020, L100.0100, L500.2500, L300.3900 ####[facility] [address] [place], [address] PT Coag (PPP) [Time] 13.2 s Normal 11.7-14.9 [facility] Comment on above: Performed By: #### L 300.4310, L501.4020, L100.0100, L500.2500, L300.3900 ####[facility] [address] [place], [address] STROKE Brain/Head without Co nton 10-14-2024 STROKE Brain/Head without Cont Normal [facility] ECG 12 Leadon 09-15-2024 Atrial Rate [facility] P Roundup [facility] P-R Interval [facility] Q-T Interval [facility] Q-T Interval (corrected) [facility] QRS Duration [facility] QTC Calculation (Bezet) [facility] R Roundup [facility] T Roundup [facility] Ventricular Rate [facility] [...] By: #### 4 96 #### [facility] [address], [address] [place] [address] Fraud Representative: Ambrose Blake MD LIPID PANEL, [facility] Cholesterol [Mass/Vol] 132 mg/dL Normal <200 [facility] Comment on above: Order Comment: FASTI NG:YES FASTING: YES Performed By: #### 7 600 #### [facility] [address], [address] [place] [address] Fraud Representative: Ambrose Blake MD Cholesterol in HDL [Mass/Vol] 28 mg/dL Low > OR = 40 [facility] Comment on above: Order Comment: FASTI NG:YES FASTING: YES Performed By: #### 7 600 #### [facility] [address], [address] [place] [address] Fraud Representative: Ambrose Blake MD Cholesterol in LDL [Mass/Vol] 58 mg/dL Normal [facility] Comment on above: Order Comment: FASTI NG:YES FASTING: YES Result Comment: Refe rence range: <100 Desirable range <100 mg/dL for primary prevention; <70 mg/dL for patients with CHD or diabetic patients with > or = 2 CHD risk factors. LDL-C is now calculated using the Rashi-Jomar calculation, which is a validated novel method providing better accuracy than the Friedewald equation in the estimation of LDL-C. Rashi LEBRON et al. CRIS. 2013;310(19): 6013-9735 (http://education.[employer].GroupSwim/faq/ZEP345) Performed By: #### 7 600 #### [facility] [address], [address] [place] [address] Fraud Representative: Ambrose Blake MD Cholesterol.total/C holesterol in HDL [Mass ratio] 4.7 {ratio} Normal <5.0 [facility] Comment on above: Order Comment: FASTI NG:YES FASTING: YES Performed By: #### 7 600 #### [facility] [address], [address] [place] [address] Fraud Representative: Ambrose Blake MD NON HDL CHOLESTEROL 104 mg/dL (calc) Normal <130 [facility] Comment on above: Order Comment: FASTI NG:YES FASTING: YES Result Comment: For patients with diabetes plus 1 major ASCVD risk factor, treating to a non-HDL-C goal of <100 mg/dL (LDL-C of <70 mg/dL) is considered a therapeutic option. Performed By: #### 7 600 #### [facility] [address], [address] [place] [address] Fraud Representative: Ambrose Blake MD Triglyceride [Mass/Vol] 380 mg/dL High <150 [facility] Comment on above: Order Comment: FASTI NG:YES FASTING: YES Result Comment: If a non-fasting specimen was collected, consider repeat triglyceride testing on a fasting specimen if clinically indicated. Dwayne et al. J. of Clin. Lipidol. 2015;9:129-169. Performed By: #### 7 600 #### [facility] [address], [address] [place] [address] Fraud Representative: Ambrose Blake MD HEMOGLOBIN A1con 07-04-2024 HEMOGLOBIN A1c 8.1 % of total Hgb High <5.7 [facility] Comment on above: Order Comment: MACHO [...] By: #### 4 96 #### [facility] [address], [address] [place] [address] Fraud Representative: Ambrose Blake MD LIPID PANEL, [place] [address]-2 Cholesterol [Mass/Vol] 174 mg/dL Normal <200 [facility] Comment on above: Order Comment: MACHO BULL FASTING:YES FASTING: YES Performed By: #### 7 600 #### [facility] [address], [address] [place] [address] Fraud Representative: Ambrose Blake MD Cholesterol in HDL [Mass/Vol] 34 mg/dL Low > OR = 40 [facility] Comment on above: Order Comment: MACHO BULL FASTING:YES FASTING: YES Performed By: #### 7 600 #### [facility] [address], [address] [place] [address] Fraud Representative: Ambrose Blake MD Cholesterol.total/C holesterol in HDL [Mass ratio] 5.1 {ratio} High <5.0 [facility] Comment on above: Order Comment: MACHO BULL FASTING:YES FASTING: YES Performed By: #### 7 600 #### [facility] [address], [address] [place] [address] Fraud Representative: Ambrose Blake MD LDL-CHOLESTEROL Normal [facility] [...] factors. LDL-C is now calculated using the Rashi-Jomar calculation, which is a validated novel method providing better accuracy than the Friedewald equation in the estimation of LDL-C. Rashi SS et al. CRIS. 2013;310(19): 3738-6112 (http://education.[employer].GroupSwim/faq/ENN089) Performed By: #### 7 600 #### [facility] [address], [address] [place] [address] Fraud Representative: Ambrose Blake MD NON HDL CHOLESTEROL 140 mg/dL (calc) High <130 [facility] Comment on above: Order Comment: MACHO BULL FASTING:YES FASTING: YES Result Comment: For patients with diabetes plus 1 major ASCVD risk factor, treating to a non-HDL-C goal of <100 mg/dL (LDL-C of <70 mg/dL) is considered a therapeutic option. Performed By: #### 7 600 #### [facility] [address], [address] [place] [address] Fraud Representative: Ambrose Blake MD Triglyceride [Mass/Vol] 489 mg/dL High <150 [facility] Comment on above: Order Comment: MACHO BULL FASTING:YES FASTING: YES Result Comment: If a non-fasting specimen was collected, consider repeat triglyceride testing on a fasting specimen if clinically indicated. Dwayne et al. J. of Clin. Lipidol. 2015;9:129-169. Performed By: #### 7 600 #### [facility] [address], [address] [place] [address] Fraud Representative: Ambrose Blake MD CT ABDOMEN PELVIS WITH [...] disease. Stable enlarged prostate. ACN/jcw Workstation ID: [id number] Dictated by: ALFA ARNOLD on SatSep 06, 2023 2:45:56 PM EST Transcribed by: EMEKA PHAM on SatSep 06, 2023 3:01:28 PM EST Finalized by: ALFA ARNOLD on SatSep 06, 2023 3:20:[address] [facility] Comment on above: Order Comment: Injur y/Trauma or Illness?:Illness/Other How long have you had these symptoms (acute/chronic)?:Unknown Reason for exam?:sexual dysfunction Type of Exam?:Initial Additional signs and symptoms?:no ECG 12 Leadon 08-27-2023 Atrial Rate [facility] P Roundup [facility] P-R Interval [facility] Q-T Interval [facility] Q-T Interval (corrected) [facility] QRS Duration [facility] QTC Calculation (Bezet) [facility] R Roundup [facility] T Roundup [facility] Ventricular Rate [facility] ECG 12 Leadon 08-28-2022 Atrial Rate [facility] P Roundup [facility] P-R Interval [facility] Q-T Interval [facility] Q-T Interval (corrected) [facility] QRS Duration [facility] QTC Calculation (Bezet) [facility] R Roundup [facility] T Roundup [facility] Ventricular Rate [facility] Basic Metabolic Panelon 05-0 Anion gap [Moles/Vol] 9.00 mmol/L Normal 8.00-16.00 [facility] Comment on above: Order Comment: Items in this order include: Basic Metabolic Panel, HgbA1C Testing Performed By: [facility] [address] [place] [address] CLIA#:[id number] Dr. Antonio Penn, Treating Engineer Helper Performed By: #### C 406, C45 #### [facility] [address] [place] [address] B/C Ratio 20.0 Ratio Normal [facility] Comment on above: Order Comment: Items in this order include: Basic Metabolic Panel, HgbA1C Testing Performed By: [facility] [address] [place] [address] CLIA#:[id number] [address] Antonio Penn, Treating Engineer Helper Performed By: #### C 406, C45 #### [facility] [address] [place] [address] Calcium [Mass/Vol] 9.2 mg/dL Normal 8.3-10.6 [facility] Comment on above: Order Comment: Items in this order include: Basic Metabolic Panel, HgbA1C Testing Performed By: [facility] [address] [place] [address] CLIA#:[id number] [address] Antonio Penn, Treating Engineer Helper Performed By: #### C 406, C45 #### [facility] [address] [place] [address] Chloride [Moles/Vol] 104 mmol/L Normal 98-107 [facility] Comment on above: Order Comment: Items in this order include: Basic Metabolic Panel, HgbA1C Testing Performed By: [facility] [address] [place] [address] CLIA#:[id number] [address] Antonio Penn, Treating Engineer Helper Performed By: #### C 406, C45 #### [facility] [address] [place] [address] CO2 [Moles/Vol] 26 mmol/L Normal 20-31 [facility] Comment on above: Order Comment: Items in this order include: Basic Metabolic Panel, HgbA1C Testing Performed By: [facility] [address] [place] [address] CLIA#:[id number] [address] Antonio Penn, Treating Engineer Helper Performed By: #### C 406, C45 #### [facility] [address] [facility] [address] [place] [address] Creatinine [Mass/Vol] 0.8 mg/dL Normal 0.7-1.3 [facility] Comment on above: Order Comment: Items in this order include: Basic Metabolic Panel, HgbA1C Testing Performed By: [facility] [address] [place] [address] CLIA#:[id number] Dr. Antonio Penn, Treating Engineer Helper Performed By: #### C 406, C45 #### [facility] [address] [facility] [address] [place] [address] GFR 98 mL/min per 1.73 Normal >60 [facility] Comment on above: Order Comment: Items in this order include: Basic Metabolic Panel, HgbA1C Testing Performed By: [facility] [address] [place] [address] CLIA#:[id number] [address] Antonio Penn, Treating Engineer Helper Result Comment: The GFR estimate is not adjusted for race. If the patient's race is -Wel[place], the GFR estimate must be multiplied by a factor of 1.21. Performed By: #### C 406, C45 #### [facility] [address] [place] [address] Glucose [Mass/Vol] 189 mg/dL High 74-106 [facility] Comment on above: Order Comment: Items in this order include: Basic Metabolic Panel, HgbA1C Testing Performed By: [facility] [address] [place] [address] CLIA#:[id number] [address] Antonio Penn, Treating Engineer Helper Performed By: #### C 406, C45 #### [facility] [address] [facility] [address] [place] [address] Potassium [Moles/Vol] 4.4 mmol/L Normal 3.5-5.1 [facility] Comment on above: Order Comment: Items in this order include: Basic Metabolic Panel, HgbA1C Testing Performed By: [facility] [address] [place] [address] CLIA#:[id number] [address] Antonio Penn, Treating Engineer Helper Performed By: #### C 406, C45 #### [facility] [address] [place] [address] Sodium [Moles/Vol] 139 mmol/L Normal 136-145 [facility] Comment on above: Order Comment: Items in this order include: Basic Metabolic Panel, HgbA1C Testing Performed By: [facility] [address] [place] [address] CLIA#:[id number] [address] Antonio Penn, Treating Engineer Helper Performed By: #### C 406, C45 #### [facility] [address] [place] [address] Urea nitrogen [Mass/Vol] 16 mg/dL Normal 9-23 [facility] Comment on above: Order Comment: Items in this order include: Basic Metabolic Panel, HgbA1C Testing Performed By: [facility] [address] [place] [address] CLIA#:[id number] Dr. Antonio Penn, Treating Engineer Helper Performed By: #### C 406, C45 #### [facility] [address] [place] [address] [id number] 01-11-2022 HbA1c (Bld) [Mass fraction] 8.0 % High <5.7 [facility] Comment on above: Order Comment: Items in this order include: Basic Metabolic Panel, HgbA1C Testing Performed By: [facility] [address] [place] [address] CLIA#:[id number] Dr. Antonio Penn, Treating Engineer Helper Result Comment: Refe rence Interval: Normal: below 5.7%. Prediabetes: 5.7% to 6.4%. Diabetes: 6.5% or above. Performed By: #### C 406, C45 #### [facility] [address] [place] [address] MR LUMBAR SPINE WITHOUT CONT RASTon 11-14-2021 MR LUMBAR SPINE WITHOUT CONTRAST EXAMINATION: [...] right descending S1 nerve root. There is kmsqywal-dx-pygtpm bilateral neural foraminal narrowing secondary to posterior [...] SatNov 15, 2021 9:31:18 PM EST Normal [facility] Comment on above: Order Comment: PT/FA X Injury/Trauma or Illness?:Illness/Other How long have you had these symptoms (acute/chronic)?:Acute Reason for exam?:Pain Type of Exam?:Initial Additional signs and symptoms?: Basic Metabolic Panelon Anion gap [Moles/Vol] 11.00 mmol/L Normal 8.00-16.00 [facility] Comment on above: Order Comment: Items in this order include: Basic Metabolic Panel , HgbA1C, Testing Performed By: [facility] [address] [place] [address]. [place] [address] Dr. Antonio Penn, Treating Engineer Helper Performed By: #### C 45, C406 #### [facility]. [address] [place] [address] [address] [place] [address] B/C Ratio 21.3 Ratio Normal [facility] Comment on above: Order Comment: Items in this order include: Basic Metabolic Panel , HgbA1C, Testing Performed By: [facility] [address] [place] [address]. [place] [address] Dr. Antonio Penn, Treating Engineer Helper Performed By: #### C 45, C406 #### [facility]. [address] [place] [address] [address] [place] [address] Calcium [Mass/Vol] 9.9 mg/dL Normal 8.5-10.5 [facility] Comment on above: Order Comment: Items in this order include: Basic Metabolic Panel , HgbA1C, Testing Performed By: [facility] [address] [place] [address]. [place] [address] Dr. Antonio Penn, Treating Engineer Helper Performed By: #### C 45, C406 #### [facility]. [address] [place] [address] [address] [place] [address] Chloride [Moles/Vol] 104 mmol/L Normal 98-107 [facility] Comment on above: Order Comment: Items in this order include: Basic Metabolic Panel , HgbA1C, Testing Performed By: [facility] [address] [place] [address]. [place] [address] Dr. Antonio Penn, Treating Engineer Helper Performed By: #### C 45, C406 #### [facility]. [address] [place] [address] [address] [place] [address] CO2 [Moles/Vol] 27.0 mmol/L Normal 21.0-32.0 [facility] Comment on above: Order Comment: Items in this order include: Basic Metabolic Panel , HgbA1C, Testing Performed By: [facility] [address] [place] [address]. [place] [address] Dr. Antonio Penn, Treating Engineer Helper Performed By: #### C 45, C406 #### [facility]. [address] [place] [address] [place] [address] Creatinine [Mass/Vol] 0.8 mg/dL Normal 0.3-1.4 [facility] Comment on above: Order Comment: Items in this order include: Basic Metabolic Panel , HgbA1C, Testing Performed By: [facility] [address] [place] [address]. [place] [address] Dr. Antonio Penn, Treating Engineer Helper Performed By: #### C 45, C406 #### [facility]. [address] [place] [address] [address] [place] [address] GFR 98 mL/min per 1.73 Normal >60 [facility] Comment on above: Order Comment: Items in this order include: Basic Metabolic Panel , HgbA1C, Testing Performed By: [facility] [address] [place] [address]. [place] [address] Dr. Antonio Penn, Treating Engineer Helper Result Comment: The GFR estimate is not adjusted for race. If the patient's race is -Wel[place], the GFR estimate must be multiplied by a factor of 1.21. Performed By: #### C 45, C406 #### [facility] [address] [place] [address] Glucose [Mass/Vol] 143 mg/dL High 74-100 [facility] Comment on above: Order Comment: Items in this order include: Basic Metabolic Panel , HgbA1C, Testing Performed By: [facility] [place] [address] Dr. Antonio Penn, Treating Engineer Helper Performed By: #### C 45, C406 #### [facility]. [address] [facility] [address] [place] [address] Potassium [Moles/Vol] 5.0 mmol/L Normal 3.5-5.3 [facility] Comment on above: Order Comment: Items in this order include: Basic Metabolic Panel , HgbA1C, Testing Performed By: [facility] [place] [address] Dr. Antonio Penn, Treating Engineer Helper Performed By: #### C 45, C406 #### [facility] [address] [place] [address] [address] [place] [address] Sodium [Moles/Vol] 142 mmol/L Normal 135-145 [facility] Comment on above: Order Comment: Items in this order include: Basic Metabolic Panel , HgbA1C, Testing Performed By: [facility] [address] [place], [place] [address] [place] [address] Dr. Antonio Penn, Treating Engineer Helper Performed By: #### C 45, C406 #### [facility]. [address] [facility] [address] [place] [address] Urea nitrogen [Mass/Vol] 17 mg/dL Normal 8-24 [facility] Comment on above: Order Comment: Items in this order include: Basic Metabolic Panel , HgbA1C, Testing Performed By: [facility] [address] [place], [place] [address]. [place] [id number] Dr. Antonio Penn, Treating Engineer Helper Performed By: #### C 45, C406 #### [facility] [address] [place] [address] [place] [address] [id number] 05-11-2021 HbA1c (Bld) [Mass fraction] 6.2 % High <5.7 [facility] Comment on above: Order Comment: Items in this order include: Basic Metabolic Panel , HgbA1C, Testing Performed By: [facility] [address] [place] [address] Dr. Antonio Penn, Treating Engineer Helper Result Comment: Refe rence Interval: Normal: below 5.7%. Prediabetes: 5.7% to 6.4%. Diabetes: 6.5% or above. Performed By: #### C 45, C406 #### [facility]. [address] [place] [address] [address] [place] [id number] Basic Metabolic Panelon 01-07 Anion gap [Moles/Vol] 13.00 mmol/L Normal 8.00-16.00 [facility] Comment on above: Order Comment: Items in this order include: Basic Metabolic Panel , PSA, TSH w/ reflex to FT4, Hemogram, , , Testing Performed By: [facility] [address] [place] [address] Dr. Antonio Penn, Treating Engineer Helper Performed By: #### C 4124, C45, C404, C211 #### [facility] [address] [place] [address] [place] [address] B/C Ratio 20.0 Ratio Normal [facility] Comment on above: Order Comment: Items in this order include: Basic Metabolic Panel , PSA, TSH w/ reflex to FT4, Hemogram, , , Testing Performed By: [facility] [address] [place], [place] [id number] Dr. Antonio Penn, Treating Engineer Helper Performed By: #### C 4124, C45, C404, C211 #### [facility] [address] [place] [address] [address] [place] [address] Calcium [Mass/Vol] 9.6 mg/dL Normal 8.5-10.5 [facility] Comment on above: Order Comment: Items in this order include: Basic Metabolic Panel , PSA, TSH w/ reflex to FT4, Hemogram, , , Testing Performed By: [facility] [address] [place] [address]. [place] [address] Dr. Antonio Penn, Treating Engineer Helper Performed By: #### C 4124, C45, C404, C211 #### [facility] [address] [place] [address] [address] [place] [address] Chloride [Moles/Vol] 101 mmol/L Normal 98-107 [facility] Comment on above: Order Comment: Items in this order include: Basic Metabolic Panel , PSA, TSH w/ reflex to FT4, Hemogram, , , Testing Performed By: [facility] [address] [place] [address]. [place] [address] Dr. Antonio Penn, Treating Engineer Helper Performed By: #### C 4124, C45, C404, C211 #### [facility] [address] [place] [address] [address] [place] [address] CO2 [Moles/Vol] 24.0 mmol/L Normal 21.0-32.0 [facility] Comment on above: Order Comment: Items in this order include: Basic Metabolic Panel , PSA, TSH w/ reflex to FT4, Hemogram, , , Testing Performed By: [facility] [address] [place] [address]. [place] [address] Dr. Antonio Penn, Treating Engineer Helper Performed By: #### C 4124, C45, C404, C211 #### [facility] [address] [place] [address] [address] [place] [address] Creatinine [Mass/Vol] 0.7 mg/dL Normal 0.3-1.4 [facility] Comment on above: Order Comment: Items in this order include: Basic Metabolic Panel , PSA, TSH w/ reflex to FT4, Hemogram, , , Testing Performed By: [facility] [address] [place] [address]. [place] [address] Dr. Antonio Penn, Treating Engineer Helper Performed By: #### C 4124, C45, C404, C211 #### [facility]. [address] [place] [address] [address] [place] [address] GFR 115 mL/min per 1.73 Normal >60 [facility] Comment on above: Order Comment: Items in this order include: Basic Metabolic Panel , PSA, TSH w/ reflex to FT4, Hemogram, , , Testing Performed By: [facility] [address] [place] [address]. [place] [address] Dr. Antonio Penn, Treating Engineer Helper Result Comment: The GFR estimate is not adjusted for race. If the patient's race is -Welsh, the GFR estimate must be multiplied by a factor of 1.21. Performed By: #### C 4124, C45, C404, C211 #### [facility]. [address] [place] [address] [address] [place] [address] Glucose [Mass/Vol] 170 mg/dL High 74-100 [facility] Comment on above: Order Comment: Items in this order include: Basic Metabolic Panel , PSA, TSH w/ reflex to FT4, Hemogram, , , Testing Performed By: [facility] [address] [place] [address] Dr. Antonio Penn, Treating Engineer Helper Performed By: #### C 4124, C45, C404, C211 #### [facility]. [address] [place] [address] [address] [place] [address] Potassium [Moles/Vol] 4.2 mmol/L Normal 3.5-5.3 [facility] Comment on above: Order Comment: Items in this order include: Basic Metabolic Panel , PSA, TSH w/ reflex to FT4, Hemogram, , , Testing Performed By: [facility] [address] [place] [address] Dr. Antonio Penn, Treating Engineer Helper Performed By: #### C 4124, C45, C404, C211 #### [facility]. [address] [place] [address] [address] [place] [address] Sodium [Moles/Vol] 138 mmol/L Normal 135-145 [facility] Comment on above: Order Comment: Items in this order include: Basic Metabolic Panel , PSA, TSH w/ reflex to FT4, Hemogram, , , Testing Performed By: [facility] [address] [place] [address]. [place] [address] Dr. Antonio Penn, Treating Engineer Helper Performed By: #### C 4124, C45, C404, C211 #### [facility] [address] [place] [address] [place] [address] Urea nitrogen [Mass/Vol] 14 mg/dL Normal 8-24 [facility] Comment on above: Order Comment: Items in this order include: Basic Metabolic Panel , PSA, TSH w/ reflex to FT4, Hemogram, , , Testing Performed By: [facility] [address] [place] [address] Dr. Antonio Penn, Treating Engineer Helper Performed By: #### C 4124, C45, C404, C211 #### [facility] [address] [place] [address] [address] [place] [address] ECG 12-LEADOrdered By: Michaela Lorenzana on 01-23-2021 Atrial Rate [facility] P Roundup [facility] P-R Interval [facility] Q-T Interval [facility] Q-T Interval (corrected) [facility] QRS Duration [facility] QTC Calculation (Bezet) [facility] R Roundup [facility] T Roundup [facility] Ventricular Rate [facility] Hemogramon 01-23-2021 Erythrocyte distribution width (RBC) [Ratio] 12.6 % Normal 11.5-15.5 [facility] Comment on above: Order Comment: Items in this order include: Basic Metabolic Panel , PSA, TSH w/ reflex to FT4, Hemogram, , , Testing Performed By: [facility] [address] [place] [address] Dr. Antonio Penn, Treating Engineer Helper Performed By: #### C 4124, C45, C404, C211 #### [facility] [address] [place] [address] [address] [place] [address] Hematocrit (Bld) [Volume fraction] 46.1 % Normal 42.0-52.0 [facility] Comment on above: Order Comment: Items in this order include: Basic Metabolic Panel , PSA, TSH w/ reflex to FT4, Hemogram, , , Testing Performed By: [facility] [address] [place] [address] [address] [address] Antonio Penn, Treating Engineer Helper Performed By: #### C 4124, C45, C404, C211 #### [facility] [address] [place] [address] [address] [place] [address] Hemoglobin (Bld) [Mass/Vol] 15.6 g/dL Normal 13.5-18.0 [facility] Comment on above: Order Comment: Items in this order include: Basic Metabolic Panel , PSA, TSH w/ reflex to FT4, Hemogram, , , Testing Performed By: [facility] [address] [place] [address] Dr. Antonio Penn, Treating Engineer Helper Performed By: #### C 4124, C45, C404, C211 #### [facility] [address] [place] [address] [address] [place] [address] MCH (RBC) [Entitic mass] 31.3 pg High 27.0-31.0 [facility] Comment on above: Order Comment: Items in this order include: Basic Metabolic Panel , PSA, TSH w/ reflex to FT4, Hemogram, , , Testing Performed By: [facility] [address] [place] [address] [address] [address] Antonio Penn, Treating Engineer Helper Performed By: #### C 4124, C45, C404, C211 #### [facility] [address] [place] [address] [address] [place] [address] MCHC (RBC) [Mass/Vol] 33.8 g/dL Normal 32.0-36.0 [facility] Comment on above: Order Comment: Items in this order include: Basic Metabolic Panel , PSA, TSH w/ reflex to FT4, Hemogram, , , Testing Performed By: [facility] [address] [place] [address]. [place] [address] Dr. Antonio Penn, Treating Engineer Helper Performed By: #### C 4124, C45, C404, C211 #### [facility] [address] [place] [address] [place] [address] MCV (RBC) [Entitic vol] 92.6 fL Normal 78.0-100.0 [facility] Comment on above: Order Comment: Items in this order include: Basic Metabolic Panel , PSA, TSH w/ reflex to FT4, Hemogram, , , Testing Performed By: [facility] [address] [place] [address]. [place] [address] Dr. Antonio Penn, Treating Engineer Helper Performed By: #### C 4124, C45, C404, C211 #### [facility] [address] [place] [address] [address] [place] [address] Platelet mean volume (Bld) [Entitic vol] 10.9 fL Normal 8.9-12.6 [facility] Comment on above: Order Comment: Items in this order include: Basic Metabolic Panel , PSA, TSH w/ reflex to FT4, Hemogram, , , Testing Performed By: [facility] [address] [place] [address]. [place] [address] Dr. Antonio Penn, Treating Engineer Helper Performed By: #### C 4124, C45, C404, C211 #### [facility] [address] [place] [address] [place] [address] PLT 267 K CUMM Normal 130-400 [facility] Comment on above: Order Comment: Items in this order include: Basic Metabolic Panel , PSA, TSH w/ reflex to FT4, Hemogram, , , Testing Performed By: [facility] [address] [place] [address]. [place] [address] Dr. Antonio Penn, Treating Engineer Helper Performed By: #### C 4124, C45, C404, C211 #### [facility] [address] [place] [address] [address] [place] [address] RBC 4.98 M CUMM Normal 4.20-5.80 [facility] Comment on above: Order Comment: Items in this order include: Basic Metabolic Panel , PSA, TSH w/ reflex to FT4, Hemogram, , , Testing Performed By: [facility] [address] [place] [address]. [place] [id number] Dr. Antonio Penn, Treating Engineer Helper Performed By: #### C 4124, C45, C404, C211 #### [facility] [address] [place] [address] [address] [place] [address] WBC 8.5 K CUMM Normal 3.8-10.6 [facility] Comment on above: Order Comment: Items in this order include: Basic Metabolic Panel , PSA, TSH w/ reflex to FT4, Hemogram, , , Testing Performed By: [facility] [address] [place] [address]. [place] [id number] Dr. Antonio Penn, Treating Engineer Helper Performed By: #### C 4124, C45, C404, C211 #### [facility] [address] [place] [address] [place] [address] TSH w/ reflex to FT4on 01-23 TSH 2.27 MIU/mL Normal 0.50-6.00 [facility] Comment on above: Order Comment: Items in this order include: Basic Metabolic Panel , PSA, TSH w/ reflex to FT4, Hemogram, , , Testing Performed By: [facility] [address] [place] [address]. [place] [address] Dr. Antonio Penn, Treating Engineer Helper Performed By: #### C 4124, C45, C404, C211 #### [facility] [address] [place] [address] [place] [address] POC Creatinineon 03-23-2020 Creatinine [Mass/Vol] 0.8 mg/dL 0.5 - 1.3 mg/dL [facility] Interpretation and review of laboratory results Normal [facility] XR MR Eyeon 03-23-2020 FINDINGS/ There are no metallic density foreign bodies identified projecting over the orbits as a contraindication to MRI. Workstation ID: [id number] [facility] EXAMINATION: XR MR EYE HISTORY: ORDERING SYSTEM PROVIDED HISTORY: mri clearance, TECHNOLOGIST PROVIDED HISTORY: Illness/Other Reason for exam: MRI clear Cancer History: no Surgery, RadiationHistory: no Encounter Type: Initial Additional signs and symptoms: unknown ORDERING SYSTEM PROVIDED DIAGNOSIS CODES: Z13.89 Encounter for imaging to screen for metal prior to MRI COMPARISON: None available. [employer], Rad In [facility] - 03/23/2020 5:11 PM EDT EXAMINATION: XR [...] a contraindication to MRI. Workstation ID: [id number] [facility] ECG 12-LEADon 04-20-2019 Atrial Rate [facility] P Roundup [facility] P-R Interval [facility] Q-T Interval [facility] Q-T Interval (corrected) [facility] QRS Duration [facility] QTC Calculation (Bezet) [facility] R Roundup [facility] T Roundup [facility] Ventricular Rate [facility] XR ABDOMEN 1 VIEWon 03-31-20 19 A left proximal ureteral calculus seen on recent CT is not visible. No definite urinary calculi are visible by plain radiograph. S/[employer]ank Workstation ID: [id number] [facility] EXAMINATION: XR ABDOMEN /KUB/FLAT PLATE/1 VIEW HISTORY: [...] are noted. Bowel gas pattern is nonobstructive. [employer], Rad In [facility] [employer] - 03/31/2019 5:07 PM [...] urinary calculi are visible by plain radiograph. [employer] Workstation ID: [id number] [facility] Vital Signs Date Time Vital Sign Value Performing Clinician Alexa norwood 09-15-2024 11:49-0500 Diastolic blood pressure 80 mm[Hg] Cheyenne Lorenzana MD Work Phone: [facility] 09-15-2024 11:49-0500 Heart rate 75 /min Cheyenne Lorenzana MD Work Phone: [facility] 09-15-2024 11:49-0500 Systolic blood pressure 132 mm[Hg] Cheyenne Lorenzana MD Work Phone: [facility] 09-15-2024 11:47-0500 Body height 170.2 cm Cheyenne Lorenzana MD Work Phone: [facility] 09-15-2024 11:47-0500 Body mass index (BMI) [Ratio] 33.8 kg/m2 Cheyenne Lorenzana MD Work Phone: [facility] 09-15-2024 11:47-0500 Body weight 97.89 kg Cheyenne Lorenzana MD Work Phone: [facility] 08-27-2023 11:03-0500 Diastolic blood pressure 91 mm[Hg] Cheyenne Lorenzana MD Work Phone: [facility] 08-27-2023 11:03-0500 Heart rate 83 /min Cheyenne Lorenzana MD Work Phone: [facility] 08-27-2023 11:03-0500 Systolic blood pressure 157 mm[Hg] Cheyenne Lorenzana MD Work Phone: [facility] 08-27-2023 11:01-0500 Body height 170.2 cm Cheyenne Lorenzana MD Work Phone: [facility] 08-27-2023 11:01-0500 Body mass index (BMI) [Ratio] 34.46 kg/m2 Cheyenne Lorenzana MD Work Phone: [facility] 08-27-2023 11:01-0500 Body weight 99.79 kg Cheyenne Lorenzana MD Work Phone: [facility] 08-28-2022 11:04-0500 Diastolic blood pressure 84 mm[Hg] Cheyenne Lorenzana MD Work Phone: [facility] 08-28-2022 11:04-0500 Heart rate 77 /min Cheyenne Lorenzana MD Work Phone: [facility] 08-28-2022 11:04-0500 Systolic blood pressure 135 mm[Hg] Cheyenne Lorenzana MD Work Phone: [facility] 08-28-2022 11:03-0500 Body height 170.2 cm Cheyenne Lorenzana MD Work Phone: [facility] 08-28-2022 11:03-0500 Body mass index (BMI) [Ratio] 35.41 kg/m2 Cheyenne Lorenzana MD Work Phone: [facility] 08-28-2022 11:03-0500 Body weight 102.56 kg Cheyenne Lorenzana MD Work Phone: [facility] 07-27-2022 11:25-0500 Body height 170.2 cm Jass Syed Work Phone: [facility] 07-27-2022 11:25-0500 Body mass index (BMI) [Ratio] 36.02 kg/m2 Jass Espino MD Work Phone: [facility] 07-27-2022 11:25-0500 Body weight 104.33 kg Jass Syed Work Phone: [facility] 01-23-2021 09:31-0400 Diastolic blood pressure 89 mm[Hg] Cheyenne Lorenzana MD Work Phone: [facility] 01-23-2021 09:31-0400 Heart rate 84 /min Cheyenne Lorenzana MD Work Phone: [facility] 01-23-2021 09:31-0400 Systolic blood pressure 148 mm[Hg] Cheyenne Lorenzana MD Work Phone: [facility] 01-23-2021 09:21-0400 Body height 170.2 cm Cheyenne Lorenzana MD Work Phone: [facility] 01-23-2021 09:21-0400 Body mass index (BMI) [Ratio] 36.16 kg/m2 Cheyenne Lorenzana MD Work Phone: [facility] 01-23-2021 09:21-0400 Body weight 104.74 kg Cheyenne Lorenzana MD Work Phone: [facility] 03-23-2020 16:36-0400 BMI (Body Mass Index) 36.02 kg/m2 Collins Lara [facility] 03-23-2020 16:36-0400 Body weight 104.33 kg Collins Lara [facility] 03-23-2020 16:36-0400 Height 170.2 cm Collins Lara [facility] 04-20-2019 09:47-0400 BP Diastolic 82 mm[Hg] Cheyenne Lorenzana [facility] 04-20-2019 09:47-0400 BP Systolic 131 mm[Hg] Cheyenne Lorenazna [facility] 04-20-2019 09:47-0400 Pulse (Heart Rate) 80 /min Cheyenne Lorenzana [facility] Encounters Encounter Date Encounter Type Care Provider Facility Start: 05-07-2025 ambulatory MACHO LOMBARDI [facility] Start: 05-05-2025 ambulatory Mary TOM Facilit y:[facility] Start: 05-04-2025 End: 05-04-2025 ambulatory Cassie Neves Facility:[facility] Start: 04-20-2025 End: 04-20-2025 ambulatory Quinten Eavns Facility:[facility] Start: 03-30-2025 End: 03-30-2025 ambulatory Quinten Evans [facility] Start: 03-29-2025 End: 03-29-2025 ambulatory Mitchell Sheth [facility] Start: 02-11-2025 End: 02-11-2025 ambulatory Mary TOM [facility] Start: 02-11-2025 End: 02-11-2025 ambulatory Mary TOM Facility:[facility] Start: 01-27-2025 End: 01-27-2025 ambulatory Mary TOM [facility] Start: 01-27-2025 End: 01-27-2025 ambulatory Mary TOM Facility:[facility] Start: 01-19-2025 ambulatory MACHO LOMBARDI [facility] Start: 12-31-2024 End: 12-31-2024 ambulatory Mary TOM [facility] Start: 12-18-2024 End: 12-18-2024 Patient encounter procedure Mary Navarro Work Phone: Podiatry Comment on above: Diabetic polyneuropa thy associated with type 2 diabetes mellitus (HCC) (Primary Dx); Ingrowing toenail; Onychocryptosis; Pain in toe of left foot; Pain in toe of right foot Start: 12-18-2024 End: 12-18-2024 ambulatory SELF Facility:[facility] Start: 12-14-2024 ambulatory CHEYENNE ZAVALA Pending sale to [facility] Start: 12-08-2024 ambulatory Mary TOM [facility]ilit y:[facility] Start: 12-03-2024 ambulatory Cassie Neves [facility]: [facility] Start: 11-26-2024 End: 11-26-2024 ambulatory Noel Ramirez [facility] Start: 11-20-2024 ambulatory NOT RECORDED PHYSICIAN Facility:[facility] Start: 10-16-2024 ambulatory Vero Ryder [facility] Start: 10-16-2024 End: 11-25-2024 Evaluation and management of inpatient Vero Ryder Facility:[facility] Start: 10-15-2024 End: 10-16-2024 Evaluation and management of inpatient Mali Ugarte Facility:[facility] Start: 10-15-2024 ambulatory Max Hill [facility] Start: 10-14-2024 ambulatory Mali Ugarte [facility] Start: 09-15-2024 End: 09-15-2024 Office outpatient visit 15 minutes Cheyenne Lorenzana MD Work Phone: [facility] Comment on above: Type 2 diabetes raul itus without complication, without long- term current use of insulin (HCC) (Primary Dx); CAD in [place] artery; Hyperlipidemia, unspecified hyperlipidemia type Start: 09-15-2024 End: 09-16-2024 ambulatory MACHO LOMBARDI [facility] Amb[facility] Start: 09-14-2024 End: 09-14-2024 Orders Only Cheyenne Lorenzana MD Work Phone: [facility] Comment on above: CAD in [place] artery (Primary Dx) Start: 08-24-2024 End: 08-24-2024 Refill Cheyenne Lorenzana MD Work Phone: [facility] Comment on above: Medication Refill Start: 08-10-2024 End: 08-10-2024 Orders Only Cheyenne Lorenzana MD Work Phone: [facility] Comment on above: CAD in [place] artery (Primary Dx) Start: 07-24-2024 ambulatory MACHO Srinivasan [facility] Start: 2024 ambulatory MACHO LOMBARDI [facility] Start: 07-12-2024 ambulatory MACHO LOMBARDI [facility] Start: 07-06-2024 End: 07-06-2024 Refill Cheyenne Lorenzana MD Work Phone: [facility] Comment on above: lipid results Start: 09-04-2023 End: 09-05-2023 ambulatory CHEYENNE LORENZANA [facility] Start: 08-27-2023 End: 08-27-2023 Office outpatient visit 10 minutes Cheyenne Lorenzana MD Work Phone: [facility] Comment on above: Bilateral hip pain ( Primary Dx); CAD in [place] artery; Hypertension, unspecified type; Sexual dysfunction; Hyperlipidemia, unspecified hyperlipidemia type; Type 2 diabetes mellitus without complication, without long-term current use of insulin (HCC) Start: 08-23-2023 End: 08-27-2023 [facility] Start: 07-30-2023 Orders Only Cheyenne Lorenzana MD Work Phone: [facility] Comment on above: CAD in [place] artery (Primary Dx) Start: 07-12-2023 Orders Only Cheyenne Lorenzana MD Work Phone: [facility] Comment on above: CAD in [place] artery (Primary Dx); Hyperlipidemia, unspecified hyperlipidemia type; Type 2 diabetes mellitus without complication, without long-term current use of insulin (HCC) Start: 03-05-2023 Refill Cheyenne Lorenzana MD Work Phone: [facility] Comment on above: blood work results Start: 02-28-2023 End: 03-04-2023 [facility] Start: 08-28-2022 End: 08-28-2022 Office outpatient visit 10 minutes Cheyenne Lorenzana MD Work Phone: [facility] Comment on above: Hyperlipidemia, unsp ecified hyperlipidemia type (Primary Dx); CAD in [place] artery; Type 2 diabetes mellitus without complication, without long-term current use of insulin (HCC) Start: 07-30-2022 Orders Only Aracely Chaparro MA [facility] Comment on above: Low back pain, unspe cified back pain laterality, unspecified chronicity, unspecified whether sciatica present (Primary Dx) Start: 07-27-2022 End: 07-27-2022 Office outpatient new 30 minutes Jass Espino MD Work Phone: [facility] Comment on above: Spinal stenosis, lum bar region, with neurogenic claudication (Primary Dx) Start: 02-21-2022 Refill Cheyenne Lorenzana MD Work Phone: [facility] Comment on above: Medication Refill Start: 11-14-2021 End: 11-15-2021 ambulatory MACHO MATT BREE [facility] Start: 07-07-2021 Orders Only Cheyenne Lorenzana MD Work Phone: [facility] Comment on above: CAD in [place] artery (Primary Dx) Start: 01-23-2021 End: 01-23-2021 Office outpatient visit 10 minutes Cheyenne Lorenzana MD Work Phone: [facility] Comment on above: CAD in [place] artery Start: 01-12-2021 End: 01-12-2021 Orders Only Cheyenne Lorenzana MD Work Phone: [facility] Comment on above: CAD in [place] artery (Primary Dx) Start: 10-18-2020 End: 10-18-2020 Patient encounter procedure Juliann Jones Work Phone: [facility] Start: 09-20-2020 End: 09-20-2020 Patient encounter procedure Juliann Jones Work Phone: [facility] Start: 09-16-2020 End: 09-16-2020 Orders Only Juliann Jones Work Phone: [facility] Start: 07-21-2020 End: 07-21-2020 Patient encounter procedure MACHO PUGHMARK [facility] Start: 07-21-2020 End: 07-21-2020 Nursing evaluation of patient and report [facility] Schedule [facility] Start: 03-23-2020 End: 03-23-2020 Subsequent hospital visit by physician Collins Lara Work Phone: [facility] Comment on above: Encounter for karel mcdonald to screen for metal prior to MRI Fourth cranial nerve palsy, right Start: 05-05-2019 End: 05-05-2019 Subsequent hospital visit by physician Matt Reyes Work Phone: [facility] Comment on above: Calculus of kidney; Calculus of ureter Start: 04-20-2019 End: 04-20-2019 Office outpatient visit 10 minutes Cheyenne Lorenzana Work Phone: [facility] Comment on above: Elevated triglycerid es with high cholesterol (Primary Dx); CAD in [place] artery; Elevated CPK Start: 03-31-2019 End: 03-31-2019 Subsequent hospital visit by physician Matt Reyes Work Phone: [facility] Comment on above: Calculus of kidney [...] FT4, Hemogram, , , Testing Performed By: [facility] [address] [place] [address] Dr. Antonio Penn, Treating Engineer Helper Result Comment: This test was performed using the [employer] ST AIA-PACK PA in a two-site immunoenzymometric assay. Results from the ST AIA-PACK PA assay should not be interpreted as being definitive for the prescence or absence of Prostate cancer. Values obtained from different methods cannot be used interchangeably Performed By: #### C 4124, C45, C404, C211 #### [facility] [address] [place] [address] Start: 01-23-2021 Ecg routine ecg w/le ast [...] Lorenzana Work Phone: Start: 03-31-2019 Radiography of [id number] Matt Naylor Reyes Work Phone: Start: 12-09-2018 Ophthalmic examinati on and evaluation Cheyenne Lorenzana MD Work Phone: Start: 10-15-2017 Microalbumin [Mass/v olume] in Urine by Test strip Cheyenne Lorenzana MD Work Phone: Plan of Treatment Date Care Activity Detail Author Start: 09-14-2029 Lipid panel Lipid Screening [facility] Start: 09-14-2027 Diabetes Screening Diabetes Screenin g [facility] Start: 10-19-2025 End: 10-19-2025 Patient encounter procedure 10/19/2025 11:00 AM EST Office Visit [facility] [address] [place] [id number] Cheyenne Lorenzana MD [address] [place] [address] [facility] Start: 06-29-2025 End: 06-29-2025 Patient encounter procedure 06/29/2025 10:00 AM EDT Office Visit Podiat[place] [address] Mary Navarro [address] [place] [address] 6 mo follow up Podiatry Comment on above: 6 mo follow up Start: 03-15-2025 End: 09-15-2025 Hemoglobin A1c/Hemoglobin.total in Blood Hemoglobin A1c Lab Routine Type 2 diabetes mellitus without complication, without long-term current use of insulin (HCC) Expected: 03/15/2025 (Approximate), Expires: 09/15/2025 [facility] Comment on above: Expected: 03/15/2025 (Approximate), Expires: 09/15/2025 Start: 03-15-2025 End: 09-15-2025 Lipid 1996 panel - Serum or Plasma Lipid Panel Lab Routine Hyperlipidemia, unspecified hyperlipidemia type Expected: 03/15/2025 (Approximate), Expires: 09/15/2025 [facility] Work Phone: Comment on above: Expected: 03/15/2025 (Approximate), Expires: 09/15/2025 Start: 01-31-2025 Tetanus vaccination [facility] Start: 01-31-2025 Urine microalbumin profile DTaP,Tdap,Td Vaccine (2 - Td or Tdap) [facility] Start: 12-13-2024 Hemoglobin A1c measurement A1C [facility] Start: 10-03-2024 Hemoglobin A1c measurement A1C [facility] Start: 09-15-2024 End: 09-15-2024 Patient encounter procedure 09/15/2024 11:40 AM EST Office Visit [facility] [address] [place] [phone] Cheyenne Lorenzana MD [address] [place] [address] [facility] Start: 09-14-2024 End: 09-14-2025 Hemoglobin A1c/Hemoglobin.total in Blood Hemoglobin A1c Lab Routine CAD in [place] artery Expected: 09/14/2024 (Approximate), Expires: 09/14/2025 [facility] Work Phone: Comment on above: Expected: 09/14/2024 (Approximate), Expires: 09/14/2025 Start: 09-05-2024 End: 07-06-2025 Lipid 1996 panel - Serum or Plasma Lipid Panel Lab Routine Hyperlipidemia, unspecified hyperlipidemia type Expected: 09/05/2024 (Approximate), Expires: 07/06/2025 [facility] Work Phone: Comment on above: Expected: 09/05/2024 (Approximate), Expires: 07/06/2025 Start: 08-27-2024 End: 08-27-2024 Hemoglobin A1c/Hemoglobin.total in Blood Hemoglobin A1c Lab Routine Type 2 diabetes mellitus without complication, without long-term current use of insulin (HCC) Expected: 08/27/2024 (Approximate), Expires: 08/27/2024 [facility] Comment on above: Expected: 08/27/2024 (Approximate), Expires: 08/27/2024 Start: 08-27-2024 History and physical examination, annual for health maintenance Wellness Visit [facility] Start: 08-27-2024 End: 08-27-2024 Lipid 1996 panel - Serum or Plasma Lipid Panel Lab Routine Hyperlipidemia, unspecified hyperlipidemia type Expected: 08/27/2024 (Approximate), Expires: 08/27/2024 [facility] Comment on above: Expected: 08/27/2024 (Approximate), Expires: 08/27/2024 Start: 08-25-2024 End: 08-25-2024 Patient encounter procedure 08/25/2024 11:40 AM EST Office Visit [facility] [address] [place] [phone] Cheyenne Lorenzana MD [address] [place] [address] [facility] Start: 05-10-2024 COVID-19 Vaccine ( season) COVID-19 Vaccine ( season) [facility] Start: 05-10-2024 Influenza vaccination Influenza Vacc ine (#1) [facility] Start: 11-22-2023 Hemoglobin A1c measurement A1C [facility] Start: 08-30-2023 Hemoglobin A1c measurement A1C [facility] Start: 08-28-2023 End: 08-27-2024 CT Abdomen and Pelvis WO and W contrast IV CT Abdomen Pelvis With And Without Contrast Imaging Routine Sexual dysfunction Expected: 08/28/2023 (Approximate), Expires: 08/27/2024 [facility] Work Phone: Comment on above: Expected: 08/28/2023 (Approximate), Expires: 08/27/2024 Start: 08-27-2023 End: 08-27-2023 Patient encounter procedure [facility] Start: 07-12-2023 End: 07-12-2024 Hemoglobin A1c/Hemoglobin.total in Blood Hemoglobin A1c Lab Routine Type 2 diabetes mellitus without complication, without long-term current use of insulin (HCC) Expected: 07/12/2023, Expires: 07/12/2024 [facility] Comment on above: Expected: 07/12/2023 , Expires: 07/12/2024 Start: 07-12-2023 End: 07-12-2024 Lipid 1996 panel - Serum or Plasma Lipid panel Lab Routine Hyperlipidemia, unspecified hyperlipidemia type Expected: 07/12/2023, Expires: 07/12/2024 [facility] Work Phone: Comment on above: Expected: 07/12/2023 , Expires: 07/12/2024 Start: 05-10-2023 COVID-19 Vaccine () COVID-19 Vaccine () [facility] Start: 05-10-2023 Influenza vaccination Sequenti al Influenza Vaccine (#1) [facility] Start: 02-26-2023 End: 08-28-2023 Creatine kinase [Enzymatic activity/volume] in Serum or Plasma CPK Lab Routine Hyperlipidemia, unspecified hyperlipidemia type Expected: 02/26/2023 (Approximate), Expires: 08/28/2023 [facility] Comment on above: Expected: 02/26/2023 (Approximate), Expires: 08/28/2023 Start: 02-26-2023 End: 08-28-2023 Hemoglobin A1c/Hemoglobin.total in Blood Hemoglobin A1c Lab Routine Type 2 diabetes mellitus without complication, without long-term current use of insulin (HCC) Expected: 02/26/2023 (Approximate), Expires: 08/28/2023 [facility] Comment on above: Expected: 02/26/2023 (Approximate), Expires: 08/28/2023 Start: 02-26-2023 End: 08-28-2023 Lipid 1996 panel - Serum or Plasma Lipid Panel Lab Routine Hyperlipidemia, unspecified hyperlipidemia type Expected: 02/26/2023 (Approximate), Expires: 08/28/2023 [facility] Work Phone: Comment on above: Expected: 02/26/2023 (Approximate), Expires: 08/28/2023 Start: 11-22-2022 Hemoglobin A1c measurement A1C [facility] Start: 08-28-2022 End: 08-28-2022 Patient encounter procedure 08/28/2022 Office Visit Cardiology Cheyenne Lorenzana MD [address] [place] [address] [facility] Start: 2022 Hemoglobin A1c measurement A1C [facility] Start: 05-10-2022 Influenza vaccination Sequenti al Influenza Vaccine (#1) [facility] Start: 04-13-2022 Hemoglobin A1c measurement A1C [facility] Start: 12-16-2021 COVID-19 Vaccine (4 - Booster for Moderna series) COVID-19 Vaccine (4 - Booster for Moderna series) [facility] Start: 10-12-2021 COVID-19 Vaccine (4 - Booster for Moderna series) COVID-19 Vaccine (4 - Booster for Moderna series) [facility] Start: 10-12-2021 COVID-19 Vaccine (4 - Moderna series) COVID-19 Vaccine (4 - Moderna series) [facility] Start: 07-24-2021 End: 07-24-2021 Patient encounter procedure [facility] Start: 07-21-2021 Hemoglobin A1c measurement A1C [facility] Start: 05-10-2021 Influenza vaccination Sequenti al Influenza Vaccine (#1) [facility] Start: 04-14-2021 Glaucoma screening [facility] Start: 04-14-2021 Ophthalmic examinati on and evaluation Ophthalmology Exam [facility] Start: 02-27-2021 End: 01-23-2022 Creatine kinase [Enzymatic activity/volume] in Serum or Plasma CPK Lab Routine CAD in [place] artery Expected: 02/27/2021 (Approximate), Expires: 01/23/2022 [facility] Comment on above: Expected: 02/27/2021 (Approximate), Expires: 01/23/2022 Start: 02-27-2021 End: 01-23-2022 Hepatic function 2000 panel - Serum or Plasma Hepatic function panel Lab Routine CAD in [place] artery Expected: 02/27/2021, Expires: 01/23/2022 [facility] Comment on above: Expected: 02/27/2021 , Expires: 01/23/2022 Start: 02-27-2021 End: 01-23-2022 Lipid 1996 panel - Serum or Plasma Lipid panel Lab Routine CAD in [place] artery Expected: 02/27/2021, Expires: 01/23/2022 [facility] Comment on above: Expected: 02/27/2021 , Expires: 01/23/2022 Start: 01-23-2021 End: 01-23-2021 Patient encounter procedure 01/23/2021 Office Visit Cardiology Cheyenne Lorenzana MD [address] [place] [address] [phone] [facility] Start: 10-18-2020 End: 10-18-2020 Immunization 10/18/2020 Immunization Primary Care Juliann Jones MD [address] [place] [address] [phone] [facility] [employer] [facility] Start: 10-18-2020 COVID-19 Vaccine (Moderna) (#2) COVID-19 Vaccine (Moderna) (#2) [facility] Start: 2020 Respiratory Syncytia l Virus Immunization: Risk, 60-74 Risk, or 75+ (1 - Risk 60-74 years 1-dose series) Respiratory Syncytial Virus Immunization: Risk, 60-74 Risk, or 75+ (1 - Risk 60-74 years 1-dose series) [facility] Start: 2020 RSV Vaccine (1 - Ris k 60-74 years 1-dose series) RSV Vaccine (1 - Risk 60-74 years 1-dose series) [facility] Start: 06-26-2020 History and physical examination, annual for health maintenance Wellness Visit [facility] Start: 05-10-2020 Influenza vaccinatio n given Sequential Influenza Vaccine (#1) [facility] Start: 12-19-2019 Hemoglobin A1c measurement A1C [facility] Start: 12-10-2019 Ophthalmic examinati on and evaluation Ophthalmology Exam [facility] Start: 09-26-2019 Urine screening for protein eGFR Diabetes [facility] Start: 06-04-2019 End: 04-20-2020 CK [Catalytic activity/Vol] CPK Lab Routine Elevated triglycerides with high cholesterol Elevated CPK Expected: 06/04/2019, Expires: 04/20/2020 [facility] Comment on above: Expected: 06/04/2019 , Expires: 04/20/2020 Start: 06-04-2019 End: 04-20-2020 Hepatic function 2000 panel - Serum or Plasma Hepatic function panel Lab Routine Elevated triglycerides with high cholesterol Elevated CPK Expected: 06/04/2019, Expires: 04/20/2020 [facility] Comment on above: Expected: 06/04/2019 , Expires: 04/20/2020 Start: 06-04-2019 End: 04-20-2020 Lipid 1996 panel Lipid Panel Lab Routine Elevated triglycerides with high cholesterol Elevated CPK Expected: 06/04/2019, Expires: 04/20/2020 [facility] Comment on above: Expected: 06/04/2019 , Expires: 04/20/2020 Start: 05-10-2019 Influenza vaccinatio n given SEQUENTIAL INFLUENZA VACCINE (#1) [facility] Start: 04-20-2019 End: 04-20-2019 Office Visit 04/20/2019 Office Visit Cardiology Cheyenne Lorenzana MD [address] [place] [address] [phone] [facility] Start: 10-15-2018 History and physical examination, annual for health maintenance Wellness Visit [facility] Start: 10-15-2018 Microalbumin measurement, urine, quantitative Urine Microalbumin [facility] Start: 08-30-2017 History and physical examination, annual for health maintenance Wellness Visit [facility] Start: 2015 Prostate specific antigen measurement Prostate Cancer Screening Discussion [facility] Start: 2010 Administration of he rpes zoster vaccine Zoster Vaccines (1 of 2) [facility] Start: 2010 Pneumococcal Vaccine : 50+ (1 of 1 - PCV) Pneumococcal Vaccine: 50+ (1 of 1 - PCV) [facility] Start: 2010 Screening for malign ant neoplasm of colon [facility] Start: 2005 Screening for malign ant neoplasm of colon [facility] Start: 1979 Pneumococcal Vaccine : Ped or At-Risk (1 of 2 - PCV) Pneumococcal Vaccine: Ped or At-Risk (1 of 2 - PCV) [facility] Start: 1978 Anxiety Screening Anxiety Screening [facility] Start: 1978 Depression Screening Depression Scre ening [facility] Start: 1978 Hepatitis C antibody , confirmatory test Hepatitis C Screening [facility] Start: 1978 Hepatitis C screening Hepatitis C Sc reening [facility] Start: 1978 HIV screening HIV Screening [facility] Start: 1975 HIV screening HIV Screening [facility] Start: 1972 Adolescent depressio n screening assessment Depression Screening (PHQ9) [facility] Start: 1972 Depression screening using PHQ-9 (Patient Health Questionnaire 9) score [facility] Start: 1970 Diabetic foot examination [facility] Start: 1970 Microalbumin measurement, urine, quantitative Urine Microalbumin [facility] Start: 1970 Ophthalmic examinati on and evaluation Ophthalmology Exam [facility] Start: 1970 Urine screening for protein [facility] Start: 1966 Pneumococcal Vaccine : Ped or At-Risk (1 - PCV) Pneumococcal Vaccine: Ped or At-Risk (1 - PCV) [facility] Start: 1966 Pneumococcal Vaccine : Ped or At-Risk (1 of 2 - PCV) Pneumococcal Vaccine: Ped or At-Risk (1 of 2 - PCV) [facility] Start: 1966 Pneumococcal Vaccine : Ped or At-Risk (1 of 2 - PPSV23) Pneumococcal Vaccine: Ped or At-Risk (1 of 2 - PPSV23) [facility] Start: 1963 History and physical examination, annual for health maintenance Wellness Visit [facility] Start: 1960 Hepatitis C antibody , confirmatory test HEPATITIS C SCREENING [facility] Start: 1960 Prostate specific antigen measurement PSA Level [facility] Start: 1960 Screening for malign ant neoplasm of colon [facility] End: 01-12-2022 12 lead ECG ECG 12 Lead ECG Routine CAD in [place] artery 1 Occurrences starting 01/12/2021 until 01/12/2022 [facility] Comment on above: 1 Occurrences starti ng 01/12/2021 until 01/12/2022 End: 07-07-2022 12 lead ECG ECG 12 Lead ECG Routine CAD in [place] artery 1 Occurrences starting 07/07/2021 until 07/07/2022 [facility] Work Phone: Comment on above: 1 Occurrences starti ng 07/07/2021 until 07/07/2022 End: 07-30-2024 12 lead ECG ECG 12 Lead ECG Routine CAD in [place] artery 1 Occurrences starting 07/30/2023 until 07/30/2024 [facility] Work Phone: Comment on above: 1 Occurrences starti ng 07/30/2023 until 07/30/2024 End: 08-10-2025 12 lead ECG ECG 12 Lead ECG Routine CAD in [place] artery 1 Occurrences starting 08/10/2024 until 08/10/2025 [facility] Work Phone: Comment on above: 1 Occurrences starti ng 08/10/2024 until 08/10/2025 End: 07-12-2024 Creatine kinase [Enzymatic activity/volume] in Serum or Plasma CPK Lab Routine CAD in [place] artery 1 Occurrences starting 07/12/2023 until 07/12/2024 [facility] Comment on above: 1 Occurrences starti ng 07/12/2023 until 07/12/2024 End: 03-23-2020 MR Brain/Orbit With And Without Contrast MR Brain/Orbit With And Without Contrast Imaging Routine Fourth cranial nerve palsy, right Once for 1 Occurrences starting 03/23/2020 until 03/23/2020 [facility] Comment on above: Once for 1 Occurrenc es starting 03/23/2020 until 03/23/2020 MR Brain/Orbit With And Without Contrast MR Brain/Orbit With And Without Contrast Imaging Routine Fourth cranial nerve palsy, right 03/23/2020 6:56 PM EDT [facility] End: 05-05-2019 Radiography of gdgier-iklbcd-flpcpxn XR Abdomen AP Imaging Routine Calculus of kidney Calculus of ureter Once for 1 Occurrences starting 05/05/2019 until 05/05/2019 [facility] Comment on above: Once for 1 Occurrenc es starting 05/05/2019 until 05/05/2019 Radiography of wkbkww-himxaw-drhnswg XR Abdomen AP Imaging Routine Calculus of kidney Calculus of ureter 05/05/2019 5:20 PM EDT [facility] Immunizations Immunization Date Immunization Notes Care Provider [facility] 06-20-2023 influenza virus vacc ine, unspecified formulation Cheyenne Lorenzana MD Work Phone: [facility] 08-17-2021 Moderna SARS-CoV-2 Vaccination Booster Cheyenne Lorenzana MD Work Phone: [facility] 10-18-2020 Moderna SARS-CoV-2 Vaccination Chanda Ferreira [facility] 09-20-2020 Moderna SARS-CoV-2 Vaccination Karinamayra Schmidt [facility] 07-21-2020 Seasonal, quadrivale nt, recombinant, injectable influenza vaccine, preservative free Uc Schedule [facility] 07-21-2020 flu vac qv 2020,18yr up,rc,PF, (FLUBLOK QUAD) syringe Uc Schedule [facility] 07-25-2018 influenza, injectabl e, quadrivalent, preservative free [facility] 06-06-2017 influenza, injectabl e, quadrivalent, preservative free [facility] 01-31-2015 tetanus toxoid, redu serena diphtheria toxoid, and acellular pertussis vaccine, adsorbed [facility] Payers Date Payer Category Payer Self-pay 2024 Private Health Insurance [facility] CHOICE PLAN GENERIC [id number] 2021 Unknown [id number] 1.13.385. 2.7.3.493765.315 2021 Unknown [id number] 2014 Unknown xxxxxxxxx 1.2.840.160489.1.13.385. 2.7.3.000111.315 2014 Unknown [id number] 1.2.840.531234.1.13.385. 2.7.3.682258.315 2014 Unknown [id number] 1960 Unknown [id number] 2.16.840.1.381841.3.579. 2.903 1960 Unknown [id number] 2.16.840.1.220825.3.579. 2.902 1960 Unknown [id number] 2.16.840.1.389241.3.579. 2.900 1960 Unknown [id number] 2.16.840.1.664445.3.579. 2.900 1960 Unknown [id number] 2.16.840.1.667120.3.579. 2.902 1960 Unknown [id number] 2.16.840.1.415768.3.579. 2.627 1960 Unknown [id number] 2.16.840.1.484270.3.579. 2.903 1960 Unknown [id number] 2.16.840.1.798109.3.579. 2.903 1960 Unknown [id number] 2.16.840.1.748952.3.579. 2.903 1960 Unknown [id number] 2.16.840.1.626234.3.579. 2.1260 1960 Unknown [id number] 2.16.840.1.276190.3.579. 2.1260 1960 Unknown [id number] 2.16.840.1.016670.3.579. 2.1260 1960 Unknown [id number] 2.16.840.1.823673.3.579. 2.1260 Unknown [id number] 2.16.840.1.269302.3.579. 2.462 Unknown [id number] 2.16.840.1.256816.3.579. 2.462 Unknown [id number] 2.16.840.1.253417.3.579. 2.462 Unknown [id number] 2.16.840.1.757996.3.579. 2.462 Unknown [id number] 2.16.840.1.683901.3.579. 2.462 Unknown [id number] 2.16.840.1.120348.3.579. 2.462 Unknown [id number] 2.16.840.1.552566.3.579. 2.462 Unknown [id number] 2.16.840.1.036579.3.579. 2.462 Unknown [id number] 2.16.840.1.823113.3.579. 2.462 Unknown [id number] 2.16.840.1.549135.3.579. 2.462 Unknown [id number] 2.16.840.1.846537.3.579. 2.462 Unknown [id number] 2.16.840.1.704359.3.579. 2.462 Unknown [id number] 2.16.840.1.425881.3.579. 2.462 Unknown [id number] 2.16.840.1.023938.3.579. 2.462 Unknown [id number] 2.16.840.1.149049.3.579. 2.462 Unknown [id number] 2.16.840.1.904580.3.579. 2.462 Unknown [id number] 2.16.840.1.375354.3.579. 2.462 Unknown [id number] 2.16.840.1.831130.3.579. 2.462 Unknown [id number] 2.16.840.1.000636.3.579. 2.462 Unknown [id number] 2.16.840.1.531116.3.579. 2.462 Unknown [id number] 2.16.840.1.999696.3.579. 2.462 Unknown [id number] 2.16.840.1.094107.3.579. 2.462 Unknown [id number] 2.16.840.1.959317.3.579. 2.462 Unknown [id number] 2.16.840.1.023210.3.579. 2.462 Unknown [id number] 2.16.840.1.723441.3.579. 2.462 Unknown [id number] 2.16.840.1.046968.3.579. 2.462 Unknown [id number] 2.16.840.1.737598.3.579. 2.462 Unknown [id number] 2.16.840.1.204805.3.579. 2.462 Unknown [id number] 2.16.840.1.268382.3.579. 2.462 Unknown [id number] 2.16.840.1.973735.3.579. 2.462 Unknown [id number] 2.16.840.1.504787.3.579. 2.462 Unknown [id number] 2.16.840.1.568271.3.579. 2.462 Unknown [id number] 2.16.840.1.948170.3.579. 2.462 Unknown [id number] 2.16.840.1.904216.3.579. 2.462 Unknown [id number] 2.16.840.1.614346.3.579. 2.462 Unknown [id number] 2.16.840.1.492072.3.579. 2.462 Unknown [id number] 2.16.840.1.143864.3.579. 2.462 Unknown [id number] 2.16.840.1.053257.3.579. 2.462 Unknown [id number] 2.16.840.1.155970.3.579. 2.462 Unknown [id number] 2.16.840.1.025159.3.579. 2.462 Unknown [id number] 2.16.840.1.160573.3.579. 2.462 Social History Date Type Detail Facility Start: 03-26-2019 End: 07-27-2022 Tobacco smoking status NHIS Never smoker [facility] Start: 03-26-2016 Alcohol Comment occ [facility] Start: 1960 Sex Assigned At Not on file [facility] Start: 03-23-2020 End: 09-15-2024 Alcohol intake Current drinker of alcohol (finding) [facility] Start: 04-06-2019 Alcohol Comment 2 drinks per week [facility] Start: 03-23-2020 End: 12-18-2024 Tobacco use and exposure Never used [facility] Start: 07-16-2022 End: 08-24-2022 Exposure to SARS-CoV-2 (event) Not sure [facility] Start: 01-16-2021 History SDOH Alcohol Frequency 3 [facility] Start: 01-16-2021 History SDOH Alcohol Std Drinks 1 [facility] Start: 01-31-2015 End: 12-18-2024 Cigarette pack-years [facility] History of tobacco use Passive smoker [facility] Start: 07-27-2022 Tobacco Comment Smokes occasional ci gar [facility] Start: 07-27-2022 Alcohol Comment Occasionally [facility] Start: 08-06-2022 End: 08-27-2023 Tobacco smoking status NHIS Occasional tobacco smoker [facility] History of tobacco use Pipe Smoker [facility] History of tobacco use Cigar Smoker [facility] Start: 01-16-2021 End: 12-18-2024 Alcohol Use Disorder Identification Test - Consumption [AUDIT-C] [facility] How often to you hav e a drink containing alcohol? 2-4 times a month [facility] How many standard dr inks containing alcohol do you have on a typical day? 1 or [facility] How often do you hav e 6 or more drinks on 1 occasion? Never [facility] Start: 03-26-2019 Gender identity Identifies as male gender (finding) [facility] Start: 03-26-2019 Sexual orientation Heterosexual (deana valentin) [facility] Start: 08-27-2023 Tobacco Comment Occasional cigar [facility] Start: 12-18-2024 Tobacco smoking status NHIS Ex-smoke r [facility] History of tobacco use Current smoker [facility] Start: 12-18-2024 Alcoholic beverage intake Ex-drinker (finding) [facility] National Score (1-10 0), lower number is lower risk 48 [facility] Start: 12-18-2024 Tobacco Comment Quit Aug 2024 [facility] Clinical Notes 01-23-2021 to 04-20-2025 Patient InstructionsMary Navarro - 12/18/2024 11:35 AM Mindi Sewell MA - 12/18/2024 11:02 AM Cheyenne Salvador MD - 09/15/2024 12:11 PM ESTPatient InstructionsPatient Instructions Note Date & Type Note Facility 04-20-2025 Note [facility] 12-18-2024 Instructions Mary Navarro - 12/18/2024 11:36 [...] (or decreased sensation in your feet) a chemistry professor should always cut your toenails. Be Careful [...] Go to your health care provider or chemistry professor to treat these conditions. documented in this encounter [facility] 12-18-2024 Note HNO ID: [id number] Author: MARY NAVARRO, ? Service: ? Author [...] pain when too long. - Uses a double end production grinder for nail maintenance. Musculoskeletal: (+) toe pain with overgrown nails Skin: (-) nonhealing wounds or sores Neurological: (+) burning/tingling/numbness in feet PAST MEDICAL HISTORY Diagnosis Date CVA (cerebral vascular accident) ([facility]) Diabetes mellitus ([facility]) ALLERGIES Allergen Reactions Melon Rash [...] polyneuropathy associated with type 2 diabetes mellitus ([facility]) (E11.42) - Diabetes mellitus type 2 for [...] keep sugars/a1c under 8.0 Attestation Recording using [employer] software for draft documentation of the visit was discussed with the patient/authorized commercial representative; all questions welcomed and answered. Patient/authorized commercial representative agreed to proceed Mary Navarro DPM [facility] 12-18-2024 History of Presen t illness [...] pain when too long. - Uses a double end production grinder for nail maintenance. Musculoskeletal: (+) toe [...] keep sugars/a1c under 8.0 Attestation Recording using [employer] software for draft documentation of the visit was discussed with the patient/authorized commercial representative; all questions welcomed and answered. Patient/authorized commercial representative agreed to proceed Mary Navarro DPM AMB ROOMING INTAKE FLOWSHEET DATA Risk Screening Do you have concerns about personal safety or safety in the home?: No Patient presents with: Left Foot - New: DM foot care Right Foot - New: DM foot care Pt here today to become established patient for routine DM nail care. Formerly seen Podiatry in [place] two years ago. Moved to this area and has not seen anyone since. Recent hx of CVA. Pt treated with Metformin and Semglee for DM. Does have some numbness, tingling, and burning in his right foot. This started after having CVA 10/2024. Mindi Bowen MA documented in this encounter [facility] 12-18-2024 Note HNO ID: [id number] Author: MINDI BOWEN MA Service: ? Author Type: Seed Analyst Type: Progress Notes Filed: 12/19/2024 11:25 Note Text: AMB ROOMING INTAKE FLOWSHEET DATA Risk Screening Do you have concerns about personal safety or safety in the home?: No Patient presents with: Left Foot - New: DM foot care Right Foot - New: DM foot care Pt here today to become established patient for routine DM nail care. Formerly seen Podiatry in [place] two years ago. Moved to this area and has not seen anyone since. Recent hx of CVA. Pt treated with Metformin and Semglee for DM. Does have some numbness, tingling, and burning in his right foot. This started after having CVA 10/2024. Mindi Bowen MA [facility] 11-25-2024 Note [facility] 10-16-2024 Note [facility] 10-16-2024 Note [facility] 09-15-2024 Note [facility] [address] [facility] [address] [facility] [address] Subjective: Lawrence Cristina is a 64 y.o. [...] conjunction with the immunization order to satisfy [place] Board [employer] Pharmacy Positive ID requirements for immunization orders. . LORATADINE (CLARITIN) 10 MG TABLET Take 1 (one) tablet (1 (more content not included)... [facility] 09-15-2024 History of Presen t illness Narrative [facility] [address] [facility] [address] [facility] [id number] Subjective: Lawrence Cristina is a 64 y.o. [...] conjunction with the immunization order to satisfy [place] Board of Pharmacy Positive ID requirements for [...] Cheyenne Lorenzana MD documented in this encounter [facility] 09-15-2024 Instructions Tyson Ross RN - 09/15/2024 [...] do not hesitate to call me at [phone]. Tyson Ross, RN, BSN Nurse Biochemistry Technologist for Dr. Nuno Lorenzana & Angel Motta NP [facility] [address] [place] [address] [address] [place], [place] [address] documented in this encounter [facility] 08-24-2024 Telephone encounter Note Next OV 09/15/24 [facility] 08-24-2024 Miscellaneous Notes Next OV 09/15/24 documented in this encounter [facility] 07-10-2024 Note Addended by: SARAH HASSAN on: 07/10/2024 08:40 AM Modules accepted: Orders [facility] 07-10-2024 Miscellaneous Notes Addended by: SARAH HASSAN on: 07/10/2024 08:40 AM Modules accepted: Orders MyChart message not read by patient. Called him [...] 07:15 AM Modules accepted: Orders Received via [facility]: Tyson, Stopped taking Crestor and have noticed a decrease in my hip and back pain. Hoping decreased pain will allow me to get back exercising. Still taking Tricor. Not taking Januvia ($450) or Ozempic($668) due to cost. Any other options? Thanks. Lawrence Results viewed by patient in [employer]. Increased dose of crestor sent to pharmacy. Repeat lipid order for 2 months placed. Patient updated via [facility]. ----- Message from Nuno Lorenzana sent at [...] and see whether you should see an speech lang path if you are not already seeing someone. I would like to increase his Crestor to 20 mg daily. I would encourage him to see an speech lang path about his blood sugars and elevated triglycerides which is related to that. documented in this encounter [facility] 07-10-2024 Telephone encounter Note My eStore App message not read by patient. Called him [...] based off those results he might reconsider. [facility] 07-07-2024 Note Addended by: Keshia ROSS on: 07/07/2024 02:01 PM Modules accepted: Orders [facility] 07-07-2024 Telephone encounter Note Message sent back to patient reviewing Dr. Lorenzana's recommendations. [facility] 07-07-2024 Telephone encounter Note I would try Lipitor 20 mg daily. With regard to Januvia and or Ozempic and cost he should actually ask his primary care doctor. He may be a candidate for the lipid clinic and maybe they can help him. [facility] 07-07-2024 Note Addended by: Keshia ROSS on: 07/07/2024 07:15 AM Modules accepted: Orders [facility] 07-07-2024 Note Addended by: Keshia ROSS on: 07/07/2024 07:15 AM Modules accepted: Orders [facility] 07-07-2024 Miscellaneous Notes Addended by: TYSON ROSS on: 07/07/2024 07:15 AM Modules accepted: Orders Received via [facility]: Tyson, Stopped taking Crestor and have noticed a decrease in my hip and back pain. Hoping decreased pain will allow me to get back exercising. Still taking Tricor. Not taking Januvia ($450) or Ozempic($668) due to cost. Any other options? Thanks. Lawrence Results viewed by patient in [employer]. Increased dose of crestor sent to pharmacy. Repeat lipid order for 2 months placed. Patient updated via [facility]. ----- Message from Nuno Lorenzana sent at [...] and see whether you should see an speech lang path if you are not already seeing someone. I would like to increase his Crestor to 20 mg daily. I would encourage him to see an speech lang path about his blood sugars and elevated triglycerides which is related to that. documented in this encounter [facility] 07-07-2024 Telephone encounter Note Received via [facility]: Tyson, Stopped taking Crestor and have noticed a decrease in my hip and back pain. Hoping decreased pain will allow me to get back exercising. Still taking Tricor. Not taking Januvia ($450) or Ozempic($668) due to cost. Any other options? Thanks. Lawrence [facility] 07-06-2024 Telephone encounter Note Results viewed by patient in [employer]. Increased dose of crestor sent to pharmacy. Repeat lipid order for 2 months placed. Patient updated via [facility]. [facility] 07-06-2024 Telephone encounter Note ----- Message from [...] and see whether you should see an speech lang path if you are not already seeing someone. I would like to increase his Crestor to 20 mg daily. I would encourage him to see an speech lang path about his blood sugars and elevated triglycerides which is related to that. [facility] 07-06-2024 Miscellaneous Notes Results viewed by patient in [employer]. Increased dose of crestor sent to pharmacy. Repeat lipid order for 2 months placed. Patient updated via [facility]. ----- Message from Nuno Lorenzana sent at [...] and see whether you should see an speech lang path if you are not already seeing someone. I would like to increase his Crestor to 20 mg daily. I would encourage him to see an speech lang path about his blood sugars and elevated triglycerides which is related to that. documented in this encounter [facility] 08-27-2023 Instructions Tyson Ross RN - 08/27/2023 [...] do not hesitate to call me at [phone]. Tyson Ross RN, BSN Nurse Biochemistry Technologist for Dr. Nuno Lorenzana [facility] [address] [place] [address] [address] [place], [place] [address] documented in this encounter [facility] 08-27-2023 History of Presen t illness Narrative [facility] [address] [facility] [address] [facility] [id number] Subjective: Lawrence Cristina is a 63 y.o. [...] conjunction with the immunization order to satisfy [place] Board of Pharmacy Positive ID requirements for [...] Cheyenne Lorenzana MD documented in this encounter [facility] 07-12-2023 History of Presen t illness Narrative Called pt - no answer, lmom notifying pt that orders for lipids, HA1C and CPK are in system. Told pt he could have checked at [place] facility prior to his appt. Told him to call back with any questions or concerns. documented in this encounter [facility] 03-05-2023 Telephone encounter Note If your insurance will pay for it I would consider Vascepa to help lower your triglycerides and get rid of the omega-3 fatty acid tab that you are taking. Tyson can you check on Vascepa. Thanks Results viewed by patient in [employer]. He is willing to try Vascepa if affordable and if so, will stop omega-3. [facility] 03-05-2023 Miscellaneous Notes If your insurance will pay for it I would consider Vascepa to help lower your triglycerides and get rid of the omega-3 fatty acid tab that you are taking. Tyson can you check on Vascepa. Thanks Results viewed by patient in [employer]. He is willing to try Vascepa if affordable and if so, will stop omega-3. ----- Message from Cheyenne Lorenzana MD sent at 03/04/2023 7:10 PM EDT ----- Your lipids look pretty darn good which is great news. Keep watching your diet to keep your triglycerides down. documented in this encounter [facility] 03-05-2023 Telephone encounter Note ----- Message from Cheyenne Lorenzana MD sent at 03/04/2023 7:10 PM EDT ----- Your lipids look pretty darn good which is great news. Keep watching your diet to keep your triglycerides down. [facility] 08-28-2022 History of Presen t illness Narrative [facility] [address] [facility] [address] [facility] [address] Subjective: Lawrence Cristina is a 62 y.o. [...] conjunction with the immunization order to satisfy [place] Board of Pharmacy Positive ID requirements for [...] 1 year (around 08/28/2023). Cheyenne Lorenzana MD Order Editor: No documented in this encounter [facility] 08-28-2022 Instructions Tyson Ross RN - 08/28/2022 11:07 AM EST If you have any questions, please do not hesitate to call me at [phone]. Tyson Ross RN, BSN Nurse Biochemistry Technologist for Dr. Nuno Lorenzana [facility] [address] [place] [address] [address] [place] [address] documented in this encounter [facility] 07-27-2022 History of Presen t illness Narrative CONSULT NOTE Patient Name: Lawrence Cristina Admit Date: MR #: [id number] : 1960 Physicians: Macho Lombardi MD (Family); [...] conjunction with the immunization order to satisfy [place] Board of Pharmacy Positive ID requirements for [...] going forward. This consultation was generated by [employer] voice recognition software and as a result grammatical or spelling errors may occur using this program. Jass Espino MD [facility] [address] [place] [address] Office [phone] documented in this encounter [facility] 07-27-2022 History of Presen t illness Narrative CONSULT NOTE Patient Name: Lawrence Cristina Admit Date: MR #: [id number] : 1960 Physicians: Macho Lombardi MD (Family); [...] Give with food . flu vac qv 2019,18yr up,rc,PF, (FLUBLOK QUAD) syringe Sign this order in conjunction with the immunization order to satisfy [place] Board of Pharmacy Positive ID requirements for [...] going forward. This consultation was generated by [employer] voice recognition software and as a result grammatical or spelling errors may occur using this program. Jass Espino MD [facility] [address] [place] [address] Office [phone] documented in this encounter [facility] 02-21-2022 Telephone encounter Note Patient left message that he needs refills for crestor and tricor sent to [facility]. Last OV 07/24/21 Recall for next OV [facility] 02-21-2022 Miscellaneous Notes Patient left message that he needs refills for crestor and tricor sent to [facility]. Last OV 07/24/21 Recall for next OV documented in this encounter [facility] 01-23-2021 History of Presen t illness Narrative [facility] [address] [facility] [address] [facility] [address] Subjective: Lawrence Cristina is a 60 y.o. [...] conjunction with the immunization order to satisfy [place] Board of Pharmacy Positive ID requirements for [...] is not nervous/anxious. documented in this encounter [facility] Evaluation note Diagnosis CAD in [place] artery- [facility] [place] [facility] Diagnosis CAD in [place] artery- [facility] Diagnosis Spinal stenosis, lumbar region, with neurogenic claudication- Primary [facility] Diagnosis Low back pain, unspecified back pain laterality, unspecified chronicity, unspecified whether sciatica present- Primary [facility] Diagnosis Spinal stenosis, lumbar region, with neurogenic claudication- Primary [facility]* Diagnosis Hyperlipidemia, unspecified hyperlipidemia type- Primary CAD in [place] artery Type 2 diabetes mellitus without complication, without long-term current use of insulin (HCC) [facility] CAD in [place] artery- Primary Hyperlipidemia, unspecified hyperlipidemia type Type 2 diabetes mellitus without complication, without long-term current use of insulin (HCC) [facility] Diagnosis CAD in [place] artery- Primary [facility] Diagnosis Bilateral hip pain- Primary Pain in joint, pelvic region and thigh CAD in [place] artery Hypertension, unspecified type Sexual dysfunction Psychosexual dysfunction, unspecified Hyperlipidemia, unspecified hyperlipidemia type Type 2 diabetes mellitus without complication, without long-term current use of insulin (HCC) [facility] Hyperlipidemia, unspecified hyperlipidemia type- [facility] Diagnosis Hyperlipidemia, unspecified hyperlipidemia type- Primary [facility] Diagnosis Hyperlipidemia, unspecified hyperlipidemia type- Primary [facility] Diagnosis CAD in [place] artery- Primary [facility] Diagnosis Type 2 diabetes mellitus without complication, without long-term current use of insulin (HCC)- Primary CAD in [place] artery Hyperlipidemia, unspecified hyperlipidemia type [facility] Diabetic polyneuropathy associated with type 2 diabetes mellitus (HCC)- Primary Ingrowing toenail Ingrowing nail Onychocryptosis Ingrowing nail Pain in toe of left foot Pain in limb Pain in toe of right foot Pain in limb documented in this encounter [facility] Assessments Diagnosis Calculus of kidney Diagnosis Encounter for imaging to screen for metal prior to MRI Special screening for other specified conditions Diagnosis Fourth cranial nerve palsy, right Diagnosis Elevated triglycerides with high cholesterol- Primary Mixed hyperlipidemia CAD in [place] artery Elevated CPK Other nonspecific abnormal serum enzyme levels Diagnosis Calculus of kidney Calculus of ureter Advance Directives No Advanced Directives Records FoundDocuments on File Type Date Recorded 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 Directives and Livin g Will 03/31/2019 10:08 AM Documents on File Type Date Recorded 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 Directives and Livin g Will 03/23/2020 4:08 PM Documents on File Type Date Recorded 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 Directives and Livin g Will 03/23/2020 4:08 PM Documents on File Type Date Recorded 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 Directives and Livin g Will 05/05/2019 5:11 PM Reason for Referral Status Reason Specialty Diagnoses / Procedures Referre d By Contact Referred To Contact Closed Radiology Diagnoses Fourth cranial nerve palsy, right Procedures MR Brain/Orbit With And Without Contrast Collins Lara MD [address] [facility] [address] [place] [address] Specialty Diagnoses / Procedures Referred By Marion rodriguez Referred To Contact Physical Therapy Diagnoses Low back pain, unspecified back pain laterality, unspecified chronicity, unspecified whether sciatica present Mitchell Ardon PA-C [address] [facility] [address] [place] [address] OF SERVICE NOT IN SYSTEM Referral ID Status Reason Start Date Expiration Date Visits Requested Visits Authorized [id number] Authorized Specialty Services Required/Pat ient's Best Interest 2 07/30/2023 1 1 Specialty Diagnoses / Procedures Referred By Marion rodriguez Referred To Contact Cheyenne Lorenzana MD [address] [facility] [address] [place] [address] Referral ID Status Reason Start Date Expiration Date V isits Requested Visits Authorized [id number] Authorized 02/03/2023 03/04/2024 1 1 Specialty Diagnoses / Procedures Referred By Marion rdoriguez Referred To Contact Radiology Diagnoses Sexual dysfunction Procedures CT Abdomen Pelvis With And Without Contrast Cheyenne Lorenzana MD [address] [facility] [address] [place] [address] Referral ID Status Reason Start Date Expiration Date V isits Requested Visits Authorized [id number] New Request 08/28/2023 08/27/2024 1 1 Summary [...] them sooner, they may be reached at [phone]. Nursing: Toyin VERMA, direct phone line [phone] (leave detailed message if we are unable to answer) & fax [phone] Main Office Phone for Scheduling, Medical Records or other needs: [phone] Scheduling Direct line: [phone] documented in this encounter History of Present Illness * Cheyenne Lorenzana MD - 04/20/2019 10:28 AM EDT [facility] [address] [facility] [address] [facility] [id number] Subjective: Lawrence Cristina is a 58 y.o. [...] With And Without Contrast Collins Lara MD [address] [facility] [address] [place] [address] Reason Comments Flu Vaccine Reason Comments Annual Exam Reason Comments Follow-up Reason Onset Date Comments Medication Refill 02/21/2022 Reason Comments Back Pain MRI in [facility] Leg Pain Extremity Weakness Specialty Diagnoses / Procedures Referred By Contact Referred To Contact Neurological Surgery / Neurosurgery Diagnoses Radiculopathy, lumbar region ReferringLavelle MD [address] [place] [address] Jass Espino MD [address] [facility] [address] [place] [address] Referral ID Status Reason Start Date Expiration Date Visits Re quested Visits Authorized [id number] Closed 06/22/2022 06/22/2023 1 1 Reason Comments [...] section and content) DATE CREATED AUTHOR 07/21/2020 [facility] DATE CREATED AUTHOR AUTHOR'S ORGANIZ ATION 11/16/2021 [facility] DATE CREATED AUTHOR AUTHOR'S ORGANIZ ATION 01/13/2022 [facility] DATE CREATED AUTHOR AUTHOR'S ORGANIZ ATION 08/28/2023 [facility] DATE CREATED AUTHOR AUTHOR'S ORGANIZ ATION 09/08/2023 [facility] DATE CREATED AUTHOR AUTHOR'S ORGANIZ ATION 09/20/2024 [facility] DATE CREATED AUTHOR AUTHOR'S ORGANIZ ATION 11/23/2024 [facility] DATE CREATED AUTHOR AUTHOR'S ORGANIZ ATION 12/20/2024 [facility] DATE CREATED AUTHOR AUTHOR'S ORGANIZ ATION 01/16/2025 [facility] DATE CREATED AUTHOR AUTHOR'S ORGANIZ ATION 05/08/2025 [facility] DATE CREATED AUTHOR AUTHOR'S ORGANIZ ATION 05/12/2025 [facility] Care Teams (unrecognized sec tion and content) Hydrology Technician Relationship Specialty Start Date End Date Macho Lombardi MD [address] [address] [place] [id number] PCP - General 06/15/11 Macho Lombardi MD [address] [facility] [address] [place] [address] PCP - LIZETH Attributed Provider - [facility] 09/09/14 09/08/50 Cheyenne Lorenzana MD [address] [facility] [address] [place] [phone] Consulting Physician Cardiology 01/23/21 Hydrology Technician Relationship Specialty Start Date End Date Macho Lombardi MD [address] [facility] [address] [address] PCP - General 06/15/11 Macho Lombardi MD [address] [facility] [address] [address] PCP - LIZETH Attributed Provider - [facility] 09/09/14 09/08/50 Cheyenne Lorenzana MD [address] [facility] [address] [address] Consulting Physician Cardiology 01/23/21 Hydrology Technician Relationship Specialty Start Date End Date Macho Lombardi MD [address] [facility] [address] [address] PCP - General 06/15/11 Macho Lombardi MD [address] [facility] [address] [place] [id number] PCP - LIZETH Attributed Provider - [facility] 09/09/14 09/08/50 Cheyenne Lorenzana MD [address] [place] [address] Consulting Physician Cardiology 01/23/21 Hydrology Technician Relationship Specialty Start Date End Date Macho Lombardi MD [address] [place] [id number] PCP - General 06/15/11 Macho Lombardi MD [address] [place] [address] PCP - LIZETH Attributed Provider - [facility] 09/09/14 09/08/50 Cheyenne Lorenzana MD [address] [place] [id number] Consulting Physician Cardiology 01/23/21 Hydrology Technician Relationship Specialty Start Date End Date Macho Lombardi MD [address] [place] [address] PCP - General 06/15/11 Macho Lombardi MD [address] [place] [address] PCP - LIZETH Attributed Provider - [facility] 09/09/14 09/08/50 Cheyenne Lorenzana MD [address] [place] [address] Consulting Physician Cardiology 01/23/21 Hydrology Technician Relationship Specialty Start Date End Date Macho Lombardi MD [address] [place] [address] PCP - General 06/15/11 Macho Lombardi MD [address] [place] [address] PCP - LIZETH Attributed Provider - [facility] 09/09/14 09/08/50 Cheyenne Lorenzana MD [address] [place] [address] Consulting Physician Cardiology 01/23/21 Hydrology Technician Relationship Specialty Start Date End Date Macho Lombardi MD [address] [place] [address] PCP - General 06/15/11 Macho Lombardi MD [address] [place] [address] PCP - LIZETH [facility] 09/09/14 09/08/50 Cheyenne Lorenzana MD [address] [place] [address] Consulting Physician Cardiology 01/23/21 Hydrology Technician Relationship Specialty Start Date End Date Macho Lombardi MD [address] [place] [address] PCP - General 06/15/11 Macho Lombardi MD [address] [place] [address] PCP - LIZETH Attributed Provider - [facility] 09/09/14 09/08/50 Cheyenne Lorenzana MD [address] [place] [address] Consulting Physician Cardiology 01/23/21 Hydrology Technician Relationship Specialty Start Date End Date Macho Lombardi MD [address] [place] [address] PCP - General 06/15/11 Macho Lombardi MD [address] [place] [address] PCP - LIZETH Attributed Provider - [facility] 09/09/14 09/08/50 Cheyenne Lorenzana MD [address] [place] [address] Consulting Physician Cardiology 01/23/21 Hydrology Technician Relationship Specialty Start Date End Date Macho Lombardi MD [address] [place] [phone] PCP - General 06/15/11 Macho Lombardi MD [address] [place], [place] [phone] PCP - LIZETH Attributed Provider - [facility] 09/09/14 09/08/50 Cheyenne Lorenzana MD [address] [place] [address] Consulting Physician Cardiology 01/23/21 Hydrology Technician Relationship Specialty Start Date End Date Macho Lombardi MD [address] [place] [address] PCP - General 06/15/11 Cheyenne Lorenzana MD [address] [place] [phone] Consulting Physician Cardiology 01/23/21 Hydrology Technician Relationship Specialty Start Date End Date Macho Lombardi MD [address] [place], [place] [phone] PCP - General 06/15/11 Cheyenne Lorenzana MD [address] [place] [phone] Consulting Physician Cardiology 01/23/21 Hydrology Technician Relationship Specialty Start Date End Date Macho Lombardi MD [address] [place] [address] PCP - General 06/15/11 Cheyenne Lorenzana MD [address] [place] [phone] Consulting Physician Cardiology 01/23/21 Hydrology Technician Relationship Specialty Start Date End Date Macho Lombardi MD [address] [place], [place] [phone] PCP - General 06/15/11 Cheyenne Lorenzana MD [address] [place] [phone] Consulting Physician Cardiology 01/23/21 Hydrology Technician Relationship Specialty Start Date End Date Macho Lombardi MD [address] [place], [place] [phone] PCP - General 06/15/11 Cheyenne Lorenzana MD [address] [place] [address] Consulting Physician Cardiology 01/23/21 Hydrology Technician Relationship Specialty Start Date End Date Macho Lombardi MD [address] [facility] [address] [place] [address] PCP - General 06/15/11 Cheyenne Lorenzana MD [address] [facility] [address] [place] [address] Consulting Physician Cardiology 01/23/21 Source Comments (unrecognize d section and content) In the event this informatio n is protected by the Federal Confidentiality of Alcohol and Drug Abuse Patient Records regulations: The Federal rules restrict any use of the information to criminally investigate or prosecute any alcohol or drug abuse patient.[facility] FOR RECORDS PERTAINING TO PATIENTS WHO [...] BE BASED ON THE PRIMARY CLINICAL RECORDS. [employer] provides no warranty or guarantee of the accuracy or completeness of information in this document.
== END | disposition home or self-care (01) ==
LOC: BIMLAB 14:03
PROVIDERS: PCP Physician Assistant; Referring Provider Physician Assistant; Visit Provider Physician Assistant
DX: E11.69 Type 2 diabetes mellitus with other specified complication (principal); E66.811 Obesity, class 1; Z12.5 Encounter for screening for malignant neoplasm of prostate
CPT/HCPCS: 36415; 80053; 80061; 83036; 84153; 84443; 85025; G0103

== ENCOUNTER 2025-06-28 13:30 | Outpatient (RCR) | payer OTHER, SELFPAY ==
--- NOTE | 2025-01-25 10:34 | HP.OTEVAL_ITS ---
Patient's Visit Information Visit Information Visit Information: LAWRENCE CRISTINA is a 64 year old M, referred to Occupational Therapy by NEGRO Miller, with a diagnosis of CVA right UE hemiparesis.. Date of Evaluation: 01/25/25 Occupational Therapist: Mana Moody, CLAUDIA/Zarina, CHT Subjective Subjective: This 64 year old male was seen for OT eval with dx of CVA. This happened 2024. pt states it started with just the face droop and by the next day his entire right side was affected. was moved to Rehab- had started acute rehab on Oct.16. and d.c on November 24 2024. Then went to his sister's home here is [place] with first floor set-up (selling his home in [place]) pt underwent Home therapy services and is now. pt is employed for [employer] but was planning on retiring until 2024. pt is right handed pt likes to cook and did like to play golf or tennis etc as well as drinking and socializing with his friends. pt is type 2 DM pt currently needing assistance with all ADLs at this time. Pt would like to have full return of right UE. ADLs Comments: living with sister first floor set-up WC Royce walker- eight resting hand brace hospital bed elevated toilet seat with rails tub shower with extended seat numeric hand drying tumbler operator and FES for home use Mirror therapy Pain right shoulder: Current Pain Intensity: 6 Pain Intensity Range: 2 ROM Shoulder: right shoulder shrug good response Elbow: initiates IR vs elbow flex-ext Forearm: no forearm sup/pron Wrist: slight right initiation of movement ROM Comments: pt demo with slight initiation of thumb and IF motion- Strength Electrical Technician Instructor: right trace left 55# Lateral Pinch: right unable left 10# Tripod Pinch: right unable left 10# Sensation Sensation Comments: right UE tingling Movement Muscle Tone: right forearm /wrist and digits In-Hand Manipulation Finger to Palm Translation: Unable - Right and Normal - Left Palm to Finger Translation: Unable - Right and Normal - Left Quick DASH-Disab of Arm,Shoulder& Hand Quick DASH Score: 68.3325 Goals Goal:: pt will demo a increase in AROM of right shoulder 150* to improve functional ADLs. pt will demo full right elbow/forearm and wrist ROM to functional perform ADLs by d.c pt will demo full composite fist and release to increase pts IND with ADLs by d/c Goal:: pt will report no pain with PROM by 4th visit. Goal:: pt will demo full open close grasp of right hand for med. large and small objects, and mtg eating utensils by d.c Goal:: pt will report a reduction of right side tingling by 75% by d/c Rehabilitation General Assessment: PT demo with right UE hemiparesis increasing need of a ssistance with all ADLs and IADLs. Pt would benefit from further skilled OT services 3x week for 8 weeks. Today therapist ed. pt on POC pt agree to POC. Rehabilitation Potential: Good Anticipated Interventions Anticipated Interventions: A/AAROM/PROM, Strengthening, Fine Motor Coord/Zoltan, Neuro Reeducation, ADL Training, Education re assistive Equipment, Education re Diagnosis, Caregiver Training and Home Program Visit Plan Frequency: 3x /Week Duration: 2 Months TEXT: Thank you for the opportunity to evaluate your patient. For Medicare and Medicare HMO plans, please review the plan of care and approve it. It will need to be FAXED BACK to us at [phone] for Medicare purposes. Please let me know if there are questions or concerns regarding this plan of care. Physician S ignature: Date:
--- NOTE | 2025-01-25 14:19 | HP.PTEVAL ---
Patient's Visit Information Visit Information Visit Information: LAWRENCE CRISTINA is a 64 year old M referred to Physical Therapy by NEGRO Miller with a diagnosis of CVA. Date of Evaluation: 01/25/25 Physical Therapist: Alondra Cornelius DPT Visit Plan Frequency: 3x /Week Duration: 4 Months Plan: CVA Oct 2024-Focus on: Gait Training, Stair Negotiation, LE Strength Training. Subjective Subjective: Per OT Note: This happened 2024. pt states it started with just the face droop and by the next day his entire right side was affected. was moved to Rehab- had started acute rehab on Oct.16. and d.c on November 24 2024. Then went to his sister's home here is [place] with first floor set-up (selling his home in [place]) pt underwent Home therapy services and is now at outpatient. pt is employed for [employer] but was planning on retiring until 2024. He is using a hemiwalker and a 4 prong for tight places like bathroom and bedroom. [place] with [place] assist. He can toilet himself but has help with showering. He wears an AFO and a knee brace for hyperextension. He does not have a custom brace. He has had a few falls- 2 weeks ago most recent- was getting ready to sit down- was hopping and then slid down to the floor- did not hit his head. Stairs to get in/out of the home- he backs down them- he needs guidance down them to be wide. He has pre-existing L4-L5-S1 bundle problem left leg mike pain. Goals: get back to normal- would like a good sturdy base. Prior to the stroke fully indep- he likes to cook- walking. PMHx/Meds: see list in chart. Objective Objective: Posture: forward head, rounded shoulders, can correct but does not maintain- does have flaccid right UE Gait: step to gait pattern with hemiwalker- AFO on the right- decreased stance on right HR/TR unable on right SLS: weight shift onto right with UE A bilateral with CGA for safety ROM: WNL with the exception of DF on the right- neutral with PROM. Strength: Core: poor, Left: Hip: 4+/5, Knee: 5/5, Ankle: 5/5 Right: Hip Flexion: 2+/5, Extn: 2+/5, Add: 3+/5 Abd: 3+/5, Knee: Flexion: 2+/5, Extn: 3+/5 with compensation patterns, Ankle: PF: 3+/5, DF; 2/5 Balance/Special Test Scores Lower Extremity Functional Score: 13 30 Second Chair Rise Test Seconds: 10 Goals Goal 1:: Patient will be I with HEP and progression Goal Time Frame: 4-6 Weeks Goal 2:: Patient will ambulate >300 feet with LRD Goal Time Frame: 4-6 Weeks Goal 3:: Patient will asc/desc 8'' stairs mod I with LRD Goal Time Frame: 4-6 Weeks Goal 4:: Patient will perform 15 sit to stands in 30 sec Goal Time Frame: 4-6 Weeks Goal 5:: Patient will report 80% improvement Goal Time Frame: 4-6 Weeks Rehabilitation Potential Physical Therapy Diagnosis: Patient presents s/p CVA- he has decreased LE and core strength/stabilization, flex and muscular endurance leading to abnormal gait and decreased ability to perform ADL's Rehabilitation Potential: Good Anticipated Interventions Patient/Client Instruction: Educate patient on: Benefits of Fitness Program Therapeutic Exercise to Include: Strength training, Endurance training, Balance training, Coordination, Agility training, Body mechanics, Postural training, Flexibilty training, Gait and locomotor training, Neuromotor development, Dynamic Lumbar Stabilization and Scapular Strength/Stabilization For the Purpose of:: To improve muscle performance and motor function and To improve ability to perform ADL's Functional Training to Include: ADL Training and Gait training Cryotherapy (ice pack, ice massage): Yes Thermo therapy (hot pack): Yes Text: Thank you for the opportunity to evaluate your patient. For Medicare and Medicare HMO plans, please review the plan of care and approve it. It will need to be FAXED BACK to us at [phone] for Medicare purposes. For Medicare only, by signing this I certify the plan of care. Please let me know if there are questions or concerns regarding this plan of care. Physician Signature: Date:
--- NOTE | 2025-01-25 18:09 | HP.SP.EVAL ---
Visit History Visit Info Date of Eval: 01/25/25 Today is Visit #: 1 Insurance Date Limit: 09/08/25 Assistant Plant Manager: SHEREE History Attending Doctor: DARÍO Referring Doctor: DARÍO Reason for Referral: CVA,DYSARTHRIA/RX HERE Medical Diagnosis: Acute CVA Date of Onset of Diagnosis: 10/2024 Previous speech therapy: Yes Results: Received speech therapy while on the inpatient rehabilitation unit at [facility] Other Relevant Medical History/Diagnoses/Surgery: Patient presented to [facility] ED on 10/14/24 with stroke-like symptoms. Pt received CT and was determined to have an acute CVA. Pt received speech therapy services while on the inpatient rehabilitation unit until 11/24/2024. Pt still experiences paresthesias (right face, right arm, right leg) and will receive outpatient OT and PT services as well. Pt stated that his dysphagia has resolved and he still experiences trouble with memory and word finding, as well as intelligibility of speech (dysarthria). Medications related to this diagnosis: None Smoking Status: Current some day smoker Diagnosis Diagnosis: Acute CVA Pain Is pain an issue with your current prescribed condition?: No Personal Preferred language: Swazi Patient Allergies Allergies Allergies: Allergies Iodinated Contrast Media (contrast dye - iodinated) Allergy (Intermediate, Verified 12/31/24 12:45) Hives rosuvastatin Adverse Reaction (Verified 12/31/24 12:45) Myalgia CLQT CLQT CLQT Administered: Yes CLQT: Cognitive Linguistic Quick Test (CLQT) is a criterion - referenced assessment designed for adults between the ages of 18 and 89 with known or suspected neurological dysfuntions. The CLQT is to assess strength and weaknesses in five cognitive domains. Severity ratings are within normal limits, mild, moderate, severe deficits. The subtests are as follows: Date: 01/25/25 Attention Attention: WNL Memory Memory: WNL Executive Functions Executive Functions: WNL Language Language: WNL Visuospatial Skills Visuospatial Skills: WNL Composite Severity Rating Composite Severity Rating: WNL Clock Drawing Severity Rating Clock Drawing Severity Rating: WNL CLQT Comments -: -: Attention: 209 (WNL) Memory: 162 (WNL) Executive Functions: 30 (WNL) Language: 29 (WNL) Visuospatial Skills: 92 (WNL) Subjective Dysarthria/Motor Subjective Subjective: During evaluation, reduced intelligibility was noted by both the ST and pt, as well as pt's sister (whom he has been staying with since his discharge from the hospital). Pt stated that his facial weakness has made it more difficult to pronounce certain sounds as well as contributes to decreased intelligibility. Recommend participation in further evaluation to address dysarthria. Reference: Neuro-QoL instrument Radiation Oncology Patient Plan Plan Plan: At this time, it is recommended that pt participate in skilled speech therapy services to target higher level cognitive skills as well as reduced intelligibility due to dysarthria. During evaluation, reduced intelligibility was noted, as well as right sided facial paresthesias. Recommendations Treatment Warranted: Yes Treatment Warranted: Speech Sound Production and Cognition Comment: Cognition and dysarthria Progress Prognosis: Excellent Frequency Frequency: 1x/Week Duration: Indefinite Patient/Family Goal Patient/Family Goal: Pt stated that he hopes to increase his level of intelligibility while speaking. Goals that are Established Determination:: Goals will be added/modified as deemed necessary and appropriate. Therapy will be discontinued when results of re-evaluation indicate therapy is no longer needed or lack of progress has been documented. Goal #1-5 Goal #1: Efren will complete concrete and abstract confrontation, convergent, and divergent naming tasks with 90% acc independently across 3 measured opportunities to improve word retrieval. Goal #2: Efren will participate in further evaluation of dysarthria. Education Patient has Indicated that the Following Identified Educational Needs: None The Patient has indicated that they have no educational or learning abilities that may effect their care.: Yes Patient Instruction Patient Education: Diagnosis, Treatment Plan and Goals Person Taught: Patient and Family Teaching Method: Discussion Response to teaching: Verbalize Understanding
--- NOTE | 2025-03-01 16:37 | HP.OTREVAL ---
Re-Evaluation Intro: NEGRO Miller, It has been my pleasure to treat LAWRENCE CRISTINA over the last 10 visits for CVA right UE hemiparesis.. Please see the progress note below for an update on the occupational therapy plan of care! Subjective Subjective: Pt arrived. no new complaints. Reports he can feel his arm becoming more stable. Plan Plan Frequency: 3x /Week Duration: 2 Months Visits in this POC: 2 months (3x week) Plan: Continue POC: 2 months (3x week) Goals Goals Patient Goals: Regain Mobility, Improve Fine Motor Skills, Use Hand/Wrist/Arm Normally Again, Decrease Tingling/Numbness, Increase ROM and Be More Independent in ADLS Goal:: pt will demo a increase in AROM of right shoulder 150* to improve functional ADLs. pt will demo full right elbow/forearm and wrist ROM to functional perform ADLs by d.c pt will demo full composite fist and release to increase pts IND with ADLs by d/c Goal:: pt will report no pain with PROM by 4th visit. Goal:: pt will demo full open close grasp of right hand for med. large and small objects, and mtg eating utensils by d.c Goal:: pt will report a reduction of right side tingling by 75% by d/c Anticipated Interventions Anticipated Interventions Anticipated Interventions: A/AAROM/PROM, Strengthening, Fine Motor Coord/Zoltan, Neuro Reeducation, ADL Training, Education re assistive Equipment, Education re Diagnosis, Caregiver Training and Home Program Re-Evaluation Ending Re-evaluation ending: Please do not hesitate to contact me at [phone] by phone or if you have questions or concerns regarding this new plan of care! Sincerely, Lynn Choe
--- NOTE | 2025-04-05 13:51 | HP.PTREVAL ---
Re-Evaluation Intro: NEGRO Miller, It has been my pleasure to treat LAWRENCE CRISTINA over the last 23 visits for CVA. Please see the progress note below for an update on the physical therapy plan of care! Subjective Subjective: Patient reports that he was able to come in with his friend and do the exercises- it was challenging but he was able to do it. [place] and his plan is to continue to add laps. He is using a quad cane and is feeling confident with it. He is planning to have a left total hip replacement after he talks to a neurologist- then it will be up to him to when he will get it scheduled. He feels that he is 8% back to normal. He still feels like he needs PT for flexor and stair climbing. He is a 4/10 with standing in the left hip pain. Objective Objective/Function: Posture: forward head, rounded shoulders- can correct but does not maintain Gait: antalgic- decreased stance on the right LE- AFO on right- step through gait pattern with quad cane Strength: Knee Extn: 27/30 Flexion: 8/7 Hip: Flexion: 24/25 Abd: / Add: Extn: 16 Flex: HS: moderate, Gastroc: moderate Stairs: asc- up with the left- CGA. Desc min A with left foot to decrease crossing midline Plan Plan Plan: Continue 1x every other week for functional mobility and progression of HEP as needed. Balance/Gait/Functional tests Balance/Special Test Scores Lower Extremity Functional Score: 13 TUG Test Time Seconds: 70 Tug Test: >30sec.=impaired mobility 30 Second Chair Rise Test Seconds: 10 Goals Goals Goal 1:: Patient will be I with HEP and progression Goal Time Frame: 4-6 Weeks Goal Progress: Progressing Goal 2:: Patient will ambulate >300 feet with LRD Goal Time Frame: 4-6 Weeks Goal Progress: Progressing Goal 3:: Patient will asc/desc 8'' stairs mod I with LRD Goal Time Frame: 4-6 Weeks Goal Progress: Progressing Goal 4:: Patient will perform 15 sit to stands in 30 sec Goal Time Frame: 4-6 Weeks Goal Progress: Progressing Goal 5:: Patient will report 80% improvement Goal Time Frame: 4-6 Weeks Goal Progress: Progressing Anticipated Interventions Anticipated Interventions Patient/Client Instruction: Educate patient on: Benefits of Fitness Program Therapeutic Exercise to Include: Strength training, Endurance training, Balance training, Coordination, Agility training, Body mechanics, Postural training, Flexibilty training, Gait and locomotor training, Neuromotor development, Dynamic Lumbar Stabilization and Scapular Strength/Stabilization For the Purpose of:: To improve muscle performance and motor function and To improve ability to perform ADL's Functional Training to Include: ADL Training and Gait training Cryotherapy (ice pack, ice massage): Yes Thermo therapy (hot pack): Yes Re-Evaluation Ending Re-evaluation ending: Please do not hesitate to contact me at [phone] by phone or if you have questions or concerns regarding this new plan of care! Sincerely, Alondra Cornelius DPT
--- NOTE | 2025-06-28 13:31 | OTREVAL_ITS ---
Re-Evaluation Intro: NEGRO Miller, It has been my pleasure to treat LAWRENCE CRISTINA over the last 27 visits for CVA right UE hemiparesis.. Please see the progress note below for an update on the occupational therapy plan of care! Subjective Subjective: pt arrives 6 weeks into taking muscle relaxer- pt states he notices more with leg ( feels weaker ) and feels he is having more difficulty with speech and with eating feels more like he is biting his lip or tongue with eating. pt states he continues to have pain in shoulder (right)and right wrist- Objective Objective/Function: pt unable to put his right shoulder sling on by himself-pt can get his resting hand brace IND. pt can not tie shoes. pt is living with sister and has supportive family and friends pt does come to gym with friend at lease 2 x week to strengthen unaffected side of UE. right shoulder shrug right 1/2 ROM of unaffected scapula retraction fair- shoulder flexion flaccid-( painful with PROM) ER passive 15* with pain (mod tone) elbow flexion/ext pt demo with initiation of both elbow flex/ext. noted tone mod. with forearm supination Mod-max tone in wrist and finger extension- noted slight digit ROM for flexion. pt will cont. with a HEP working on wt.bearing. AAROM and PROM. Pt would benefit from botox for decreasing tone of right UE, forearm and flexor of digits.. Plan Plan Plan: pts insurance limiting apts. will get new insurance in Nov. will like pt to return after nuro apt. as no change in right UE tone at this time with oral muscle relaxer. Goals Goals Patient Goals: Regain Mobility, Improve Fine Motor Skills, Use Hand/Wrist/Arm N ormally Again, Decrease Tingling/Numbness, Increase ROM and Be More Independent in ADLS Goal:: pt will demo a increase in AROM of right shoulder 150* to improve functional ADLs. pt will demo full right elbow/forearm and wrist ROM to functional perform ADLs by d.c pt will demo full composite fist and release to increase pts IND with ADLs by d/c Goal:: pt will report no pain with PROM by 4th visit. Goal:: pt will demo full open close grasp of right hand for med. large and small objects, and mtg eating utensils by d.c Goal:: pt will report a reduction of right side tingling by 75% by d/c Anticipated Interventions Anticipated Interventions Anticipated Interventions: A/AAROM/PROM, Strengthening, Fine Motor Coord/Zoltan, Neuro Reeducation, ADL Training, Education re assistive Equipment, Education re Diagnosis, Caregiver Training and Home Program Re-Evaluation Ending Re-evaluation ending: Please do not hesitate to contact me at [phone] by phone or if you have questions or concerns regarding this new plan of care! Sincerely, Mana Moody, OTR/L, CHT
--- NOTE | 2025-06-28 13:35 | HP.SP.DC_ITS ---
ST Discharge Summary Discharged: Discharge: Patient is being discharged from [facility] speech therapy services at this time. Patient attended initial evaluation on 01/25/25 and attended weekly appointments until 04/02/2025. Patient and therapist agreed to schedule appointments every other week due to increased progress. Patient attending these appointments until recommended discharge on 06/28/2025. Patient and ST agree on adequate progress, continuation of home exercise program, and discharge from speech therapy. Thank you for allowing me to participate in the care of this patient.
--- NOTE | 2025-06-28 14:21 | HP.PTDCSUM ---
Discharge Summary D/C summary: It has been my pleasure to treat LAWRENCE CRISTNIA referred by NEGRO Miller, with the diagnosis of CVA for a total of 30 visit(s). Discharge Date: 06/28/25 Please see the following information for a summary of their discharge status. Subjective Subjective: Pt is about 10% of what he used to be. He is stronger and able to keep his balance better. He is starting to put own socks and shoes on but can not tie them up yet. He uses a walker or a cane depending. He will continue to do his exercises at home. He does 95% bathing at home. 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 Goals Goal 1:: Patient will be I with HEP and progression Goal Progress: Goal Met Goal 2:: Patient will ambulate >300 feet with LRD Goal Progress: Goal Met Goal 3:: Patient will asc/desc 8'' stairs mod I with LRD Goal Progress: Progressing Goal 4:: Patient will perform 15 sit to stands in 30 sec Goal Progress: Progressing Goal 5:: Patient will report 80% improvement Goal Progress: Progressing Plan Plan: DC PT to HEP D/C Information Discharge Comments: DC PT to HEP d/c sentence: If there are questions or concerns regarding this patient's physical therapy, please feel free to call me at [phone]. Thank you for the referral of this patient. Sincerely, Althea Thomson, MPT Balance/Gait/Functional tests Balance/Special Test Scores Lower Extremity Functional Score: 16 TUG Test Time Seconds: 70 Tug Test: >30sec.=impaired mobility 30 Second Chair Rise Test Seconds: 10 Improvement % Improvement: 10
== END 2025-06-28 19:00 | disposition home or self-care (01) ==
LOC: PT 13:30
PROVIDERS: PCP Physician Assistant; Referring Provider Physician Assistant; Visit Provider Physician Assistant
DX: I69.351 Hemiplegia and hemiparesis following cerebral infarction affecting right dominant side (principal); I69.322 Dysarthria following cerebral infarction
CPT/HCPCS: 92507; 92523; 97110; 97112; 97116; 97162; 97166; 97530

== ENCOUNTER → 2025-07-01 | Outpatient (CLI) | payer OTHER, SELFPAY ==
--- NOTE | 2025-07-01 13:49 | CDU_ITS ---
Reason For Study Reason For Study: CVA Rt. Velocities/BP Lt. Velocities/BP Prox CCA 80.9/9.5 cm/sec. Prox CCA 93.0/16.3 cm/sec. Mid CCA 66.7/11.0 cm/sec. Mid CCA 55.6/8.4 cm/sec. Dist CCA 65.8/14.7 cm/sec. Dist CCA 58.2/11.0 cm/sec. Prox ICA 47.8/8.1 cm/sec. Prox ICA 42.6/11.4 cm/sec. Mid ICA 64.2/20.3 cm/sec. Mid ICA 66.6/18.5 cm/sec. Dist ICA 59.4/14.1 cm/sec. Dist ICA 82.0/25.9 cm/sec. Rt. ICA/CCA = 1.0. Lt. ICA/CCA = 1.2. Prox ECA 51.9/6.5 cm/sec. Prox ECA 54.5/4.7 cm/sec. Rt. Vert. 74.3/8.4 cm/sec. Lt. Vert. 47.9/12.1 cm/sec. Right Extracranial There is intimal thickening but no significant atherosclerotic plaque noted in the right common carotid artery. There is intimal thickening but no significant atherosclerotic plaque noted in the right internal carotid artery. There is intimal thickening but no significant atherosclerotic plaque noted in the right external carotid artery. Antegrade flow is noted in the right vertebral artery. Left Extracranial There is homogeneous, smooth atherosclerotic plaque noted in the left common carotid artery. There is intimal thickening but no significant atherosclerotic plaque noted in the left internal carotid artery. There is intimal thickening but no significant atherosclerotic plaque noted in the left external carotid artery. Antegrade flow is noted in the left vertebral artery. Procedure Carotid Duplex [id number]. This is a Carotid Duplex examination using B-mode, color flow and specral Doppler. The exam was diagnostic. Exam performed in department. VL/Carotid Duplex Ultrasound Interpretation Summary No significant atherosclerotic plaque or stenosis noted in the internal carotid arteries bilaterally. Flow within the vertebral arteries is antegrade bilaterally. Ordering Physician: Cassie Neves Referring Physician: Cassie Neves Performed By: Edward Garcia RVT
[2025-07-01 14:59] LABS: Vitamin B12 208 pg/mL (180-914)
[2025-07-01 15:21] LABS: CRP < 3.00 mg/L (0.0-3.0)
[2025-07-05 13:08] LABS: Vitamin D 1,25-Dihydroxy 43.5 pg/mL (24.8-81.5)
[2025-07-05 14:08] LABS: ANTINUCLEAR ANTIBODIES DIRECT Negative (Negative)
== END | disposition home or self-care (01) ==
LOC: CVS 13:27
PROVIDERS: Psychiatry & Neurology Neurology; PCP Physician Assistant
DX: I63.9 Cerebral infarction, unspecified (principal); E11.69 Type 2 diabetes mellitus with other specified complication; R53.81 Other malaise; R53.83 Other fatigue
CPT/HCPCS: 36415; 81240; 81241; 82607; 82652; 82747; 83036; 84207; 84425; 84443; 85014; 85300; 85301; 85303; 85305; 85306; 85652; 86038; 86140; 86147; 86160; 86162; 86225; 93880